=== PATIENT | female | born 1955 | race Caucasian/White ===

== ENCOUNTER 2017-07-02 22:33 | Emergency (ER) | payer OTHER ==
[~2017-07-02] VITALS: Ht 172.7 cm; Wt 68.9 kg
[2017-07-02] MEDS ORDERED: PLAVIX75 MG PO (22:53)
[2017-07-02] MEDS ORDERED: GABAPENTIN300 MG PO (22:53)
[2017-07-03] MEDS ORDERED: ORPHENADRINE CITRATE 30 MG/ML VIAL IM ONE
[2017-07-03] MEDS ORDERED: HYDROCODONE/APAP 10MG-325MG TAB PO ONE
--- NOTE | 2017-07-03 00:38 | Diagnostic Imaging Report ---
EXAM: lumbar spine, 3 views, AP, lateral and coned lateral view DATE: 07/02/2017 11:50 PM Time stamp on exam: 2348 hours INDICATION: Lower back pain after fall COMPARISON: None FINDINGS: There are 5 lumbar-type vertebral bodies. Posterior surgical fusion and laminectomies L4-S1. Likely chronic compression fractures of L4 and L5. Age indeterminate mild compression of the superior endplate of L3. Age indeterminate central compression fracture of L1 with greater than 75% loss of vertebral body height centrally. Additional age-indeterminate compression fractures with approximately 25% loss of central vertebral body height of T10 and T11. Diffuse bone demineralization. Alignment is within normal limits. Partially visualized neuro stimulator wires. IMPRESSION: Age-indeterminate compression fractures of T10, T11, L1 and L4 with the greatest loss of height at L1. Surgical changes of the lower lumbar spine L4-S1 with chronic appearing compression fractures. Signed by: Dr. Blossom Monique M.D. on 07/03/2017 12:34 AM
[2017-07-03 02:41] VITALS: BP 145/68
== END 2017-07-03 02:45 | disposition home or self-care (01) ==
LOC: ER 22:33
DX: M54.5 Low back pain (principal); S39.012A Strain of muscle, fascia and tendon of lower back, initial encounter; G89.29 Other chronic pain; W01.0XXA Fall on same level from slipping, tripping and stumbling without subsequent striking against object, initial encounter; Y93.01 Activity, walking, marching and hiking; Y92.008 Other place in unspecified non-institutional (private) residence as the place of occurrence of the external cause; Z86.73 Personal history of transient ischemic attack (TIA), and cerebral infarction without residual deficits; F17.210 Nicotine dependence, cigarettes, uncomplicated
CPT/HCPCS: 72100; 99283; J2360

== ENCOUNTER 2018-01-28 14:24 | Emergency (ER) | payer OTHER ==
[~2018-01-28] VITALS: Ht 172.7 cm; Wt 68.9 kg
[~2018-01-28 14:24] MED LIST: GABAPENTIN300 MG PO; PLAVIX75 MG PO
[2018-01-28] MEDS ORDERED: MORPHINE SULFATE 2 MG/ML SYR IM STA (15:53)
[2018-01-28] MEDS ORDERED: PREDNISONE 20 MG TAB PO ONE (16:00)
[2018-01-28] MEDS ORDERED: KETOROLAC TROMETHAMINE 60 MG/2 ML VIAL IM ONE (16:00)
[2018-01-28] MEDS ORDERED: ALBUTEROL/IPRATROPIUM 3 ML NEB NEB ONE (16:00)
[2018-01-28] MEDS ORDERED: MORPHINE SULFATE INJ 4 MG/ML INJ IM NR (16:15)
--- NOTE | 2018-01-28 17:12 | Diagnostic Imaging Report ---
PROCEDURE: A single AP view of the chest. COMPARISON: None. INDICATIONS: COUGH, SHORTNESS OF BREATH FINDINGS: Exam limited by patient rotation. Lines/tubes: None. Lungs: The lungs are well inflated and clear. There is no evidence of pneumonia or pulmonary edema. Pleura: There is no pleural effusion or pneumothorax. Heart and mediastinum: Cardiac silhouette is unremarkable. Pulmonary vasculature is grossly normal. Bones: No acute bony abnormality. Generalized osteopenia. IMPRESSION: 1. No acute cardiopulmonary abnormalities. Trevor Kaminski M.D. Dictated by: Trevor Kaminski M.D. on 01/28/2018 at 17:17 Electronically approved by: Trevor Kaminski M.D. on 01/28/2018 at 17:17
[2018-01-28 17:46] VITALS: BP 129/78
== END 2018-01-28 17:50 | disposition home or self-care (01) ==
LOC: ER 14:24
DX: M54.5 Low back pain (principal); R32 Unspecified urinary incontinence; S39.012A Strain of muscle, fascia and tendon of lower back, initial encounter; S32.19XA Other fracture of sacrum, initial encounter for closed fracture; I69.834 Monoplegia of upper limb following other cerebrovascular disease affecting left non-dominant side; R05 Cough; J20.9 Acute bronchitis, unspecified; J44.9 Chronic obstructive pulmonary disease, unspecified; F32.9 Major depressive disorder, single episode, unspecified; F17.210 Nicotine dependence, cigarettes, uncomplicated
CPT/HCPCS: 71045; 94640; 99283; J1885; J2270

== ENCOUNTER 2018-06-09 13:25 | Inpatient (IN) | payer OTHER ==
[~2018-06-09] VITALS: Ht 165.1 cm; Wt 59.9 kg
[2018-06-09 13:49] LABS: BASOPHILS % 0.1 % (0.0-1.0); EOSINOPHILS # (AUTO) 0.3 (0.0-0.4); EOSINOPHILS % 1.9 % (0.0-6.0); HEMATOCRIT 39.1 % (34.2-44.1); HEMOGLOBIN 13.2 g/dL (12.0-16.0); LYMPHOCYTES # (AUTO) 2.1 (1.0-3.2); LYMPHOCYTES % 15.2 % (18.0-39.1); MEAN CORPUSCULAR HEMOGLOBIN 32.6 pg (28-32); MEAN CORPUSCULAR HGB CONC 33.8 g/dL (31-35); MEAN CORPUSCULAR VOLUME 96.5 fL (81-99); MONOCYTES % 7.5 % (4.4-11.3); NEUTROPHILS # (AUTO) 10.3 (2.1-6.9); PLATELET COUNT 331 x10e3/uL (140-360); RED BLOOD COUNT 4.05 x10e6/uL (3.6-5.1); RED CELL DISTRIBUTION WIDTH 14.6 % (11.7-14.4)
[2018-06-09 14:05] LABS: ALANINE AMINOTRANSFERASE 7 IU/L (0-55); ALBUMIN 3.8 g/dL (3.5-5.0); ALBUMIN/GLOBULIN RATIO 0.9 (0.8-2.0); ALKALINE PHOSPHATASE 87 IU/L (40-150); ANION GAP 14.9 mmol/L (8-16); BLOOD UREA NITROGEN 18 mg/dL (7-26); BUN/CREATININE RATIO 21 (6-25); CALCIUM 10.3 mg/dL (8.4-10.2); CARBON DIOXIDE 32 mmol/L (22-29); CHLORIDE 89 mmol/L (98-107); CREATININE, SERUM 0.86 mg/dL (0.57-1.11); EST GLOMERULAR FILTRATION RATE > 60 ML/MIN (60-); GLUCOSE 118 mg/dL (74-118); POTASSIUM 3.9 mmol/L (3.5-5.1); SODIUM 132 mmol/L (136-145)
[2018-06-09 15:02] LABS: CLARITY,URINE SL CLOUDY (CLEAR); COLOR,URINE STRAW (YELLOW)
[2018-06-09 15:03] LABS: BILIRUBIN,URINE NEGATIVE (NEGATIVE); KETONES,URINE NEGATIVE (NEGATIVE); LEUKOCYTE ESTERASE ,URINE NEGATIVE (NEGATIVE); NITRITE,URINE NEGATIVE (NEGATIVE); PREGNANCY TEST, URINE NEGATIVE (NEGATIVE); PROTEIN,URINE DIPSTICK NEGATIVE (NEGATIVE); URINE UROBILINOGEN 0.2 mg/dL (0.2 - 1)
[2018-06-09 15:03] LABS: INR 0.74; PROTHROMBIN TIME 11.1 seconds (11.9-14.5)
[2018-06-09 15:04] LABS: PARTIAL THROMBOPLASTIN TIME 30.3 seconds (23.8-35.5)
[2018-06-09 15:08] LABS: AMYLASE 45 U/L (25-125); LIPASE 8 U/L (8-78)
[2018-06-09 15:14] LABS: AMORPHOUS SEDIMENT,URINE MODERATE (FEW); BACTERIA,URINE FEW /HPF; EPITHELIAL CELLS,URINE FEW /LPF; RBC,URINE 0-5 /HPF (0-5); WBC,URINE (MAN) 0-5 /HPF (0-5)
[2018-06-09] MEDS ORDERED: SODIUM CHLORIDE 0.9% 1000ML 1,000 ML IV STA (15:25)
[2018-06-09] MEDS ORDERED: MORPHINE SULFATE 2 MG/ML SYR IV STA ×2 (15:25→19:33)
[2018-06-09] MEDS ORDERED: ONDANSETRON HCL INJ 2 MG/ML VIAL IV STA ×2 (15:32→21:40)
[2018-06-09] MEDS ORDERED: ONDANSETRON HCL INJ 2 MG/ML VIAL ONE (15:35)
--- NOTE | 2018-06-09 18:51 | Diagnostic Imaging Report ---
EXAM: CT Abdomen and Pelvis WITHOUT contrast INDICATION: ^rule out obstruction. oral contract only. Allergy to IV con ^[id number] ^1725 COMPARISON: None. TECHNIQUE: Abdomen and pelvis were scanned utilizing a multidetector helical scanner from the lung base to the pubic symphysis without administration of IV contrast. Absence of intravenous contrast decreases sensitivity for detection of focal lesions and vascular pathology. Coronal and sagittal reformations were obtained. Routine protocol was performed. IV CONTRAST: None ORAL CONTRAST: Patient refused oral contrast. COMPLICATIONS: None RADIATION DOSE: Total DLP: 238.61 mGy*cm Estimated effective dose: (DLP x 0.015 x size factor) mSv CTDIvol has been reviewed. It is below the limits set by the Radiation Protocol Committee (RPC). FINDINGS: LINES and TUBES: None. LOWER THORAX: Left basilar patchy opacities. Right base calcified granuloma. There are is also linear atelectasis/scarring of the right base. HEPATOBILIARY: Unenhanced liver is unremarkable. No biliary ductal dilation. GALLBLADDER: Not distended. No radio-opaque stones or sludge. No wall thickening. SPLEEN: No splenomegaly. PANCREAS: No focal masses or ductal dilatation. ADRENALS: No adrenal nodules KIDNEYS/URETERS: No hydronephrosis. Limited for evaluation of renal parenchyma without intravenous contrast. No stones. GI TRACT: Multiple distended air and fluid-filled small bowel loops throughout the abdomen along with less distended distal ileal loops. PELVIC ORGANS/BLADDER: Unremarkable. LYMPH NODES: No lymphadenopathy. Few prominent retroperitoneal lymph nodes are seen. VESSELS: Limited evaluation without intravenous contrast and with the presence of streak artifacts. PERITONEUM / RETROPERITONEUM: No free air or fluid. BONES: Generalized demineralization limits evaluation. There is posterior fusion of L4-S1 with streak artifacts, limiting evaluation. Multiple compression deformities of the lumbar and visualized thoracic spine. Evidence of L3 vertebroplasty. SOFT TISSUES: Unremarkable. IMPRESSION: Very limited study without intravenous contrast and due to streak artifacts from spinal fusion hardware. 1. Left basilar patchy opacities, concerning for pneumonia. 2. Dilated air and fluid filled small bowel loops throughout the abdomen along with less dilated distal ileal loops concerning for at least partial small bowel obstruction. 3. Severe osseous demineralization along with multilevel compression deformities of the thoracolumbar spine vertebral bodies. Signed by: Dr. Terrance Girard MD on 06/09/2018 6:48 PM
[2018-06-09] MEDS ORDERED: MELOXICAM15 MG PO (21:45)
[2018-06-09] MEDS ORDERED: ALENDRONATE SOD70 MG PO (21:45)
[2018-06-09] MEDS ORDERED: BUSPIRONE HCL7.5 MG PO (21:45)
[2018-06-09] MEDS ORDERED: TIZANIDINE HCL4 MG PO (21:45)
[2018-06-09] MEDS ORDERED: PROAIR HFA INH8.5 GM INH (21:45)
[2018-06-09] MEDS ORDERED: ZOLPIDEM TARTRA10 MG PO (21:45)
[2018-06-09] MEDS ORDERED: OXCARBAZEPINE600 MG PO (21:45)
[2018-06-09] MEDS ORDERED: SODIUM CHLORIDE 0.9% 250ML 250 ML ONE (22:38)
[2018-06-09] MEDS: PIPER-TAZ 3.375 GM 50 ML IV SCH (22:45)
[2018-06-09] MEDS: MORPHINE SULFATE 2 MG/ML SYR IV PRN (23:38)
[2018-06-09] MEDS: SODIUM CHLORIDE 0.9% 1000ML 1,000 ML IV SCH (23:56)
[2018-06-10] VITALS (7 sets, daily range): BP systolic 88–112; BP diastolic 53–74
[2018-06-10] MEDS ORDERED: ONDANSETRON HCL INJ 2 MG/ML VIAL IV PRN
[2018-06-10] MEDS: MORPHINE SULFATE 2 MG/ML SYR IV PRN ×6 (03:32→22:00)
[2018-06-10 05:19] LABS: BASOPHILS % 0.4 % (0.0-1.0); EOSINOPHILS # (AUTO) 0.3 (0.0-0.4); EOSINOPHILS % 3.8 % (0.0-6.0); HEMATOCRIT 31.8 % (34.2-44.1); HEMOGLOBIN 10.4 g/dL (12.0-16.0); LYMPHOCYTES % 12.5 % (18.0-39.1); MEAN CORPUSCULAR HEMOGLOBIN 32.2 pg (28-32); MEAN CORPUSCULAR HGB CONC 32.7 g/dL (31-35); MEAN CORPUSCULAR VOLUME 98.5 fL (81-99); MONOCYTES % 12.1 % (4.4-11.3); NEUTROPHILS # (AUTO) 5.7 (2.1-6.9); NEUTROPHILS % 70.9 % (38.7-80.0); PLATELET COUNT 244 x10e3/uL (140-360); RED BLOOD COUNT 3.23 x10e6/uL (3.6-5.1); RED CELL DISTRIBUTION WIDTH 14.5 % (11.7-14.4)
[2018-06-10 05:42] LABS: ALBUMIN 2.9 g/dL (3.5-5.0); ALBUMIN/GLOBULIN RATIO 0.8 (0.8-2.0); ALKALINE PHOSPHATASE 65 IU/L (40-150); BLOOD UREA NITROGEN 13 mg/dL (7-26); BUN/CREATININE RATIO 19 (6-25); CALCIUM 8.8 mg/dL (8.4-10.2); CARBON DIOXIDE 31 mmol/L (22-29); CHLORIDE 98 mmol/L (98-107); CHOL/HDL RATIO 1.8 (3.0-3.6); CHOLESTEROL 134 MD/DL (0-199); CREATININE, SERUM 0.69 mg/dL (0.57-1.11); EST GLOMERULAR FILTRATION RATE > 60 ML/MIN (60-); GLUCOSE 80 mg/dL (74-118); HDL CHOLESTEROL 75 MG/DL (40-60); LDL CHOLESTEROL 39 MG/DL (60-130); MAGNESIUM 1.9 MG/DL (1.3-2.1); PHOSPHORUS 2.7 MG/DL (2.3-4.7); SODIUM 135 mmol/L (136-145); TRIGLYCERIDES 99 MG/DL (0-149)
[2018-06-10 05:43] LABS: ALANINE AMINOTRANSFERASE < 6 IU/L (0-55)
[2018-06-10] MEDS ORDERED: MORPHINE SULFATE 2 MG/ML SYR IV STA (05:51)
[2018-06-10 06:05] LABS: THYROID STIMULATING HORMONE 1.351 uIU/mL (0.350-4.940)
[2018-06-10] MEDS: PIPER-TAZ 3.375 GM 50 ML IV SCH ×3 (06:09→22:35)
--- NOTE | 2018-06-10 06:58 | Diagnostic Imaging Report ---
EXAM: CHEST SINGLE (PORTABLE), AP 1 view INDICATION: Pneumonia, COPD COMPARISON: AP view of the chest January 28, 2018 FINDINGS: LINES/TUBES: None LUNGS: Bibasilar atelectasis. PLEURA: No effusions or pneumothorax. HEART AND MEDIASTINUM: Normal size and contour. BONES AND SOFT TISSUES: No acute findings. IMPRESSION: Bibasilar atelectasis. Signed by: Dr. Blossom Monique M.D. on 06/10/2018 6:54 AM
--- NOTE | 2018-06-10 06:59 | Diagnostic Imaging Report ---
EXAM: ABDOMEN-1VIEW (KUB), supine INDICATION: Small bowel obstruction COMPARISON: CT of the abdomen and pelvis June 09, 2018 FINDINGS: LINES/TUBES: None BOWEL PATTERN: Persistent dilated loops of small bowel. SOFT TISSUES: No change. LUNG BASES: Not included BONES: No acute findings. IMPRESSION: Persistent small bowel obstruction. Signed by: Dr. Blossom Monique M.D. on 06/10/2018 6:55 AM
[2018-06-10] MEDS: ALBUTEROL/IPRATROPIUM 3 ML NEB NEB SCH ×5 (07:00→22:00)
[2018-06-10] MEDS ORDERED: NON-FORMULARY MEDICATION (Zolpidem Tartrate 10 MG) PO PRN (08:15)
[2018-06-10] MEDS ORDERED: TIZANIDINE HCL 4 MG TAB PO PRN (08:15)
[2018-06-10] MEDS ORDERED: HYDROCODONE/APAP 5MG-325MG TAB PO PRN (08:30)
[2018-06-10] MEDS: BUSPIRONE HCL 5 MG TAB PO SCH ×2 (09:00→17:00)
[2018-06-10] MEDS ORDERED: NON-FORMULARY MEDICATION (Meloxicam 15 MG) PO SCH (09:00)
[2018-06-10] MEDS: GABAPENTIN 300 MG CAP PO SCH ×3 (09:00→20:39)
[2018-06-10] MEDS: OXCARBAZEPINE 300 MG TAB PO SCH ×2 (09:00→17:00)
[2018-06-10] MEDS ORDERED: CLOPIDOGREL BISULFATE 75 MG TAB PO SCH (09:00)
[2018-06-10] MEDS: GUAIFENESIN 600MG/DEXTROMETHORPHAN 30MG TABSR PO SCH ×2 (09:00→17:00)
[2018-06-10] MEDS ORDERED: NON-FORMULARY MEDICATION (Buspirone Hcl 7.5 MG) PO SCH (09:00)
[2018-06-10] MEDS ORDERED: MELOXICAM 7.5 MG TAB PO SCH (09:00)
[2018-06-10] MEDS: FAMOTIDINE 20 MG/2 ML VIAL IV SCH ×2 (09:30→16:59)
[2018-06-10] MEDS: SODIUM CHLORIDE 0.9% 1000ML 1,000 ML IV SCH (20:39)
[2018-06-10] MEDS ORDERED: NICOTINE 7 MG PATCH TOP SCH (21:00)
[2018-06-10] MEDS ORDERED: ZOLPIDEM TARTRATE 10 MG TAB PO PRN (21:00)
[2018-06-11] VITALS: BP 100/52
[2018-06-11] MEDS: MORPHINE SULFATE 2 MG/ML SYR IV PRN (02:00)
[2018-06-11 04:51] VITALS: BP 99/52
[2018-06-11] MEDS: ALBUTEROL/IPRATROPIUM 3 ML NEB NEB SCH (06:00)
[2018-06-11] MEDS: PIPER-TAZ 3.375 GM 50 ML IV SCH (06:03)
[2018-06-11] MEDS ORDERED: MORPHINE SULFATE INJ 4 MG/ML INJ IV PRN (06:30)
[2018-06-11] MEDS ORDERED: MORPHINE SULFATE 2 MG/ML SYR IV PRN ×2 (06:30→09:45)
[2018-06-11] MEDS ORDERED: BACLOFEN 10 MG TAB PO PRN (06:30)
[2018-06-11 06:51] LABS: BASOPHILS % 0.3 % (0.0-1.0); EOSINOPHILS # (AUTO) 0.3 (0.0-0.4); EOSINOPHILS % 4.2 % (0.0-6.0); HEMATOCRIT 31.5 % (34.2-44.1); HEMOGLOBIN 10.1 g/dL (12.0-16.0); LYMPHOCYTES # (AUTO) 0.9 (1.0-3.2); LYMPHOCYTES % 15.3 % (18.0-39.1); MEAN CORPUSCULAR HEMOGLOBIN 32.4 pg (28-32); MEAN CORPUSCULAR HGB CONC 32.1 g/dL (31-35); MONOCYTES # (AUTO) 0.8 (0.2-0.8); MONOCYTES % 13.5 % (4.4-11.3); NEUTROPHILS # (AUTO) 4.1 (2.1-6.9); NEUTROPHILS % 66.4 % (38.7-80.0); PLATELET COUNT 248 x10e3/uL (140-360); RED BLOOD COUNT 3.12 x10e6/uL (3.6-5.1); RED CELL DISTRIBUTION WIDTH 14.4 % (11.7-14.4)
--- NOTE | 2018-06-11 06:53 | Diagnostic Imaging Report ---
EXAM: ABDOMEN-1VIEW (KUB), supine INDICATION: Small bowel obstruction COMPARISON: Abdominal x-ray June 10, 2018 FINDINGS: LINES/TUBES: None BOWEL PATTERN: Persistent dilated loops of centralized small bowel. Air is seen in the colon and rectum. SOFT TISSUES: No acute findings LUNG BASES: Not included BONES: No acute findings. IMPRESSION: Persistent small bowel obstruction. Signed by: Dr. Blossom Monique M.D. on 06/11/2018 6:49 AM
[2018-06-11 06:59] LABS: BLOOD UREA NITROGEN 12 mg/dL (7-26); BUN/CREATININE RATIO 20 (6-25); CALCIUM 8.8 mg/dL (8.4-10.2); CARBON DIOXIDE 26 mmol/L (22-29); CHLORIDE 103 mmol/L (98-107); CREATININE, SERUM 0.61 mg/dL (0.57-1.11); EST GLOMERULAR FILTRATION RATE > 60 ML/MIN (60-); GLUCOSE 66 mg/dL (74-118); MAGNESIUM 2.2 MG/DL (1.3-2.1); SODIUM 139 mmol/L (136-145)
== END 2018-06-11 07:41 | disposition left against medical advice (07) | DRG 388 ==
LOC: ER 13:25 → OBSVTOIN 19:46 → ERHOLD 19:46 → INTOOBSV 19:46 → MED/SURG3 21:55
PROVIDERS: ADMIT Internal Medicine; ATTEND Internal Medicine
DX: K56.609 Unspecified intestinal obstruction, unspecified as to partial versus complete obstruction (principal); E43 Unspecified severe protein-calorie malnutrition; J44.1 Chronic obstructive pulmonary disease with (acute) exacerbation; R64 Cachexia; Z68.1 Body mass index [BMI] 19.9 or less, adult; E87.1 Hypo-osmolality and hyponatremia; R94.31 Abnormal electrocardiogram [ECG] [EKG]; I69.321 Dysphasia following cerebral infarction; I69.398 Other sequelae of cerebral infarction; Z74.01 Bed confinement status; R09.02 Hypoxemia; E86.0 Dehydration; R32 Unspecified urinary incontinence; Z68.22 Body mass index [BMI] 22.0-22.9, adult; F17.210 Nicotine dependence, cigarettes, uncomplicated; F41.9 Anxiety disorder, unspecified; F32.9 Major depressive disorder, single episode, unspecified; G47.00 Insomnia, unspecified; F41.0 Panic disorder [episodic paroxysmal anxiety]
CPT/HCPCS: 36415; 71045; 74018; 74176; 80048; 80053; 80061; 81001; 81025; 82140; 82150; 82378; 83036; 83605; 83690; 83735; 84100; 84443; 85025; 85610; 85730; 93005; 94640; 99284; J2270; J2405; J2543; J7030; J7050

== ENCOUNTER 2018-11-10 18:35 | Emergency (ER) | payer OTHER ==
[~2018-11-10] VITALS: Ht 172.7 cm; Wt 56.7 kg
[~2018-11-10 18:35] MED LIST changes: +ALENDRONATE SOD70 MG PO; +BUSPIRONE HCL7.5 MG PO; +MELOXICAM15 MG PO; +OXCARBAZEPINE600 MG PO; +PROAIR HFA INH8.5 GM INH; +TIZANIDINE HCL4 MG PO; +ZOLPIDEM TARTRA10 MG PO
--- NOTE | 2018-11-10 19:30 | NUR ---
PT AMBULATORY TO RESTROOM AT THIS TIME WITH WALKER, NAD NOTED, 100% ON RA, BREATHING EVEN/UNLABORED.
--- NOTE | 2018-11-10 19:57 | Diagnostic Imaging Report ---
EXAM: CHEST SINGLE (PORTABLE), AP 1 view INDICATION: Chest pain. Trouble breathing. COMPARISON: AP view of the chest 06/09/2018 FINDINGS: LINES/TUBES: None LUNGS: Bibasilar atelectasis. Lungs are mildly hyperinflated. PLEURA: No effusions or pneumothorax. HEART AND MEDIASTINUM: Normal size and contour. BONES AND SOFT TISSUES: No acute findings. IMPRESSION: No change. Bibasilar atelectasis. Signed by: Dr. Penny Shah M.D. on 11/10/2018 7:54 PM
[2018-11-10] MEDS ORDERED: METHYLPREDNISOLONE SOD SUCC 125 MG/2ML VIAL IV ONE (20:00)
[2018-11-10] MEDS ORDERED: ALBUTEROL/IPRATROPIUM 3 ML NEB NEB ONE ×2 (20:00→20:30)
[2018-11-10] MEDS ORDERED: ASPIRIN 81 MG CHEW TAB PO ONE (20:45)
--- NOTE | 2018-11-10 21:10 | NUR ---
PT INFORMED OF HEMOLYZED LABS, INFORMED OF NEED TO REDRAW USING BUTTERFLY NEEDLE, PT STATES "YOU AIN'Y POKING ME AGAIN", ATTEMPTED TO EDUCATE PATIENT ON NEED FOR REDRAW OF LABS, REFUSING AT THIS TIME, DR. ALANIS MADE AWARE AT THIS TIME.
--- NOTE | 2018-11-10 21:35 | Diagnostic Imaging Report ---
EXAM: CT Chest WITHOUT contrast INDICATION: ^dyspnea on exertion ^[id number] ^2057 COMPARISON: Same day chest x-ray. TECHNIQUE: Chest was scanned utilizing a multidetector helical scanner from the lung apex through the level of the adrenal glands without administration of IV contrast. Absence of intravenous contrast decreases sensitivity for detection of lymphadenopathy and vascular pathology. Coronal and sagittal reformations were obtained. Routine protocol was performed. IV CONTRAST: None COMPLICATIONS: None RADIATION DOSE: Total DLP: 387.6 mGy*cm Estimated effective dose: (DLP x 0.014 x size factor) mSv CTDIvol has been reviewed. It is below the limits set by the Radiation Protocol Committee (RPC). FINDINGS: LINES/ TUBES: None. LUNGS AND AIRWAYS: Minimal upper lobe predominant centrilobular emphysematous changes. No focal consolidation. Small linear left basilar atelectasis/scarring. Posterior right base calcified granuloma. Airways are normal. PLEURA: The pleural spaces are clear. HEART AND MEDIASTINUM: The thyroid gland is normal. Limited for evaluation of hilar regions without intravenous contrast. Prominent mediastinal lymph nodes, the largest measuring 1.2 cm in the precarinal region (series 2, image 51). No axillary lymphadenopathy. The heart is normal in size.. There is no pericardial effusion. Mild atherosclerotic calcification of the aortic arch and coronary arteries. UPPER ABDOMEN: Unremarkable. BONES: Generalized demineralization. Age indeterminate compression fractures of the L1, T11, T10 T8 vertebral bodies. Degenerative changes of thoracic spine. SOFT TISSUES: Unremarkable. IMPRESSION: Minimal upper lobe predominant centrilobular symphysis changes. No focal consolidation. Prominent nonspecific mediastinal lymph nodes. Age indeterminate compression deformities of vertebral bodies as described above. Signed by: Dr. Terrance Girard MD on 11/10/2018 9:31 PM
== END 2018-11-10 21:35 | disposition left against medical advice (07) ==
LOC: ER 18:35
DX: J44.1 Chronic obstructive pulmonary disease with (acute) exacerbation (principal); Z91.041 Radiographic dye allergy status; F17.210 Nicotine dependence, cigarettes, uncomplicated
CPT/HCPCS: 36415; 71045; 71250; 93005; 94640; 99284; J2930

== ENCOUNTER 2019-12-18 15:42 | Emergency (ER) | payer OTHER ==
[~2019-12-18] VITALS: Ht 172.7 cm; Wt 56.7 kg
--- OUTSIDE RECORDS SUMMARY | 2019-12-18 15:45 | XMS REPORT | Continuity of Care Document ---
Author Author [facility] Organization [employer] Address Unknown Phone Unavailable Care Team Providers Care Nurse Clinician Name Role Phone [employer] Information Classting Unavailable Un available Problems Problem Status Onset Date Classification Date Reported Comments Source Lumbago with sciatica, unspecified side Active Problem 12/26/2016 [facility] Chronic pain disorder Active Problem 12/26/2016 [facility] Laceration of elbow, left, initial encounter Active Diagnosis 12/25/2016 [facility] Elbow laceration, right, initial encounter Active Diagnosis 12/25/2016 [facility] History of stroke Active Diagnosis 12/25/2016 [facility] Medications Medication Details Route Status Patient Instructions Ordering Provider Order Date Source Suboxone 2 ea sublingually Active 8 mg-2 mg sublingually once a day [facility] Plavix 1 tab(s) orally Active 75 mg orally once a day [facility] Ambien 1 tab(s) orally Active 5 mg orally once a day (at bedtime) [facility] Allergies, Adverse Reactions, Alerts Substance Category Reaction Severity Reaction type Status Date Reported Comments Source morphine Adverse Reaction anaphylaxis Adverse Reaction Active 12/11/2016 [facility] Immunizations No Data Provided for This Section Results No Data Provided for This Section Pathology Reports No Data Provided for This Section Diagnostic Reports No Data Provided for This Section Consultation Notes No Data Provided for This Section Discharge Summaries No Data Provided for This Section History and Physicals No Data Provided for This Section Vital Signs Vital Sign Value Date Comments Source Temperature Oral (F) 98.0 F 12/11/2016 [facility] Weight 140 12/11/2016 [facility] Height 66 0 12/11/2016 [facility] Respitory Rate 16 12/11/2016 [facility] Diastolic (mm Hg) 78 12/11/2016 [facility] Systolic (mm Hg) 126 12/11/2016 [facility] Encounters No Data Provided for This Section Procedures No Data Provided for This Section Assessment and Plan No Data Provided for This Section Plan of Care No Data Provided for This Section Social History No Data Provided for This Section Family History No Data Provided for This Section Advance Directives No Data Provided for This Section Functional Status No Data Provided for This Section
--- OUTSIDE RECORDS SUMMARY | 2019-12-18 15:45 | XMS REPORT ---
Author Author [facility] [employer] Address Unknown Phone Unavailable Care Team Providers Care Senior Outside Sales Representative Name Role Phone RODOLFO [facility] Unavailable Allergies, Adverse Reactions, Alerts Substance Reaction Event Type morphine anaphylaxis Drug Allergy Problems Problem Type Condition Code Onset Dates Condition Statu s Problem Lumbago with sciatica, unspecified side M54.40 Active Assessment Chronic pain disorder G89.4 Active Problem Chronic pain disorder G89.4 Active Assessment Laceration of elbow, left, initial encounter S51.012A Active Assessment Elbow laceration, right, initial encounter S51.011A Active Assessment Lumbago with sciatica, unspecified side M54.40 Active Assessment History of stroke Z86.73 Active Medications Medication Code System Code Instructions Start Date End Date Status Dosage Suboxone [facility] 64572102049 8 mg-2 mg sublingually once a day Active 2 ea Plavix [facility] [id number] 75 mg orally once a day Acti ve 1 tab(s) Ambien [facility] [id number] 5 mg orally once a day (at bedtime) Active 1 tab(s) Vital Signs Date/Time: December 11, 2016 Temperature 98.0 F Weight 140 lbs Height 66 in Respiratory Rate 16 /min Pulse 80 /min Blood Pressure Diastolic 78 mm Hg Blood Pressure Systolic 126 mm Hg BMI 22.59 Index Oximetry 98 % Results No Known Results Summary Purpose [employer] Submission
--- OUTSIDE RECORDS SUMMARY | 2019-12-18 15:45 | XMS REPORT ---
Author Author [facility] [employer] Address Unknown Phone Unavailable Care Team Providers Care Senior Designer/Art Director Name Role Phone RODOLFO [facility] CP Unavailable Allergies No Known Allergies Problems Problem Type Condition Code Onset Dates Condition Statu s Problem Lumbago with sciatica, unspecified side M54.40 Active Problem Chronic pain disorder G89.4 Active Medications No Known Medications Results No Known Results Summary Purpose [employer] Submission
--- OUTSIDE RECORDS SUMMARY | 2019-12-18 15:45 | XMS REPORT ---
Author Author [facility] [employer] Address Unknown Phone Unavailable Care Team Providers Care Mask Layout Designer Name Role Phone RODOLFO CUBA CP Unavailable Allergies No Known Allergies Problems Problem Type Condition Code Onset Dates Condition Statu s Problem Lumbago with sciatica, unspecified side M54.40 Active Problem Chronic pain disorder G89.4 Active Medications Medication Code System Code Instructions Start Date End Date Status Dosage Suboxone [facility] [id number] 8 mg-2 mg sublingually once a day Active 2 ea Results No Known Results Summary Purpose [employer] Submission
--- OUTSIDE RECORDS SUMMARY | 2019-12-18 15:46 | XMS REPORT | Continuity of Care Document ---
Author Author [facility] t Organization [facility] Address [address] [place] [id number] Phone Unavailable Care Team Providers Care Marketing Communications Manager Name Role Phone Shama CARMICHAEL DO PCP Ramirez MEJIA Attphys Unavailable ALIE DUARTE Attphys Unavailable MANOnofre RAMIREZ Attphys Unavailable Linda TEE Attphys Unavailable KILLAMALIE Admphys Unavailable Payers Payer Name Policy Type Policy Number Effective Date Expiration Date [facility] [employer] [facility] [id number] 2017 00:00 :[address] [facility] Problems Condition Name Condition Details Condition Category Status Onset Date Resolution Date Last Treatment Date Treating Clinician Comments Source Small bowel obstruction SBO (small bowel obstruction) Problem Active [facility] Lumbago with sciatica, unspecified side Lumbago with sciatica, unspecified side Active Problem 12/26/2016 [facility] Problem Active 2016-12-26 02:46:31 Pablito Valdivia Chronic pain disorder Wool Shearer akhil pain disorder Active Problem 12/26/2016 [facility] Problem Active 2016-12-26 02:46:31 Marj Valdivia Laceration of elbow, left, initial encounter Laceration of elbow, left, initial encounter Active Diagnosis 12/25/2016 [facility] Diagnosis Active 2016-12-25 02:46:10 Marj Valdivia Elbow laceration, right, initial encounter Elbow laceration, right, initial encounter Active Diagnosis 12/25/2016 [facility] Diagnosis Active 2016-12-25 02:46:10 Me collin Valdivia History of stroke Hist ory of stroke Active Diagnosis 12/25/2016 [facility] Diagnosis Active 2016-12-25 02:46:10 Marj Valdivia Allergies, Adverse Reactions, Alerts Allergy Name Allergy Type Status Severity Reaction(s) Onset Date Inacti ve Date Treating Clinician Comments Source Iodine and Iodide Containing Produc FA Active SV 2019-11-11 6 00:00:00 [facility] morphine DA Active [place] 2019-11-26 00:00:00 [facility] Iodine and Iodide Containing Produc FA Active 2019-04-14 1 00:00:00 [facility] morphine DA Active [place] 2019-05-12 00:00:00 [facility] Iodinated Contrast- Oral and IV Dye Allergy to Substance Active Severe ANAPHYLAXIS 2018-11-10 00:00:[address] [facility] Iodine and Iodide Containing Produc FA Active 2017-11-10 5 00:00:00 [facility] morphine DA Active [place] 2017-11-24 00:00:00 [facility] morphine morphine Active anaphylaxis 2016-12-11 00:00:00 Marj Valdivia Medications Ordered Medication Name Filled Medication Name Start Date Stop Da te Current Medication? Ordering Clinician Indication Dosage Frequency Signature (SIG) Comments Components Source Suboxone 2016-12-25 02:50:31 Yes RODOLFO COREA 2 ea [facility] Plavix 2016-12-25 02:46:10 Yes RODOLFO COREA 1 ta b(s) [facility] Ambien 2016-12-25 02:46:10 Yes RODOLFO COREA 1 ta b(s) [facility] Albuterol Sulfate (Proair Hfa Inhaler*) 8.5 Gm Inh Alb uterol Sulfate (Proair Hfa Inhaler*) 8.5 Gm Inh Yes 2 Four Times Daily [facility] Alendronate Sodium 70 Mg Tablet Alendronate Sodium 70 Mg Tablet Yes [address] [facility] Buspirone Hcl 7.5 Mg Tablet Buspirone Hcl 7.5 Mg Tablet Yes 7.5 Twice A Day [facility] Clopidogrel Bisulfate (Plavix) 75 Mg Tablet Clopidogre l Bisulfate (Plavix) 75 Mg Tablet Yes [address] [facility] Gabapentin 300 Mg Capsule Gabapentin 300 Mg Capsule Yes 300 Three Times A Day [facility] Meloxicam 15 Mg Tablet Meloxicam 15 Mg Tablet Yes [address] [facility] Oxcarbazepine 600 Mg Tablet Oxcarbazepine 600 Mg Tablet Yes 600 Twice A Day [facility] Tizanidine Hcl 4 Mg Tablet Tizanidine Hcl 4 Mg Tablet Yes 4 Every 8 Hours [facility] Zolpidem Tartrate 10 Mg Tablet Zolpidem Tartrate 10 Mg Tablet Yes 10 Bedtime as needed for Insomnia [facility] Vital Signs Vital Name Observation Time Observation Value Comments Source Temperature Oral (F) 2016-12-11 20:30:[address] [facility] Weight 2016-12-11 20:30:00 [facility] Height 2016-12-11 20:30:00 [facility] Respitory Rate 2016-12-11 20:30:00 Memori al Skip Diastolic (mm Hg) 2016-12-11 20:30:00 Mem orial Skip Systolic (mm Hg) 2016-12-11 20:30:00 Mp rial Skip Procedures Procedure Date / Time Performed Performing Clinician Sourc e Computed tomography of chest without contrast 2018-11-10 00: 00:[address] [facility] CT of abdomen and pelvis without contrast 2018-06-09 00:00:[address] [facility] Encounters Start Date/Time End Date/Time Encounter Type Admission Type [facility] Facility Care Department Encounter ID Source 2019-09-16 18:27:00 2019-09-16 18:27:00 Emergency E SE SE [id number] 2018-11-10 18:35:00 2018-11-10 21:35:00 Departed Emergency Room [address] [facility] [id number] [facility] 2018-06-09 19:46:00 2018-06-11 07:41:00 Discharged Inpatient [address] [facility] [id number] [facility] 2018-01-28 14:24:00 2018-01-28 17:50:00 Departed Emergency Room [address] [facility] [id number] [facility] 2017-07-02 22:33:00 2017-07-03 02:45:00 Departed Emergency Room ER NATTY TEE [facility] [id number] [facility] 2016-12-24 15:40:00 2016-12-24 15:40:00 Outpatient [facility] [id number] [facility] 2016-12-24 10:20:00 2016-12-24 10:20:00 Outpatient [facility] Med [id number] [facility] 2016-12-11 15:30:00 2016-12-11 15:30:00 Outpatient [facility] Med [id number] [facility] Results Test Description Test Time Test Comments Results Result Comments Source MAGNESIUM 2019-11-26 22:06:00 Test Item MAGNESIUM (test code = MAG) 1.8 mg/dL 1.8-2.4 N B-TYPE NATRIURETIC [id number] 20:39:00* Test Item Value Reference Range Interpretation Comments B-TYPE NATRIURETIC PEPTIDE (test code = BNP) 45.41 pgram/mL 0-100 N BASIC METABOLIC [id number] 20:27:00* Test Item Value Reference Range Interpretation Comments SODIUM (test code = NA) 136 mmol/L 136-145 N POTASSIUM (test code = K) 4.2 mmol/L 3.5-5.1 N CHLORIDE (test code = CL) 103.0 mmol/L 98-107 N CARBON DIOXIDE (test code = CO2) 30.0 mmol/L 21-32 N ANION GAP (test code = GAP) 7.2 10-20 L GLUCOSE (test code = GLU) 96 mg/dL 74-106 N BLOOD UREA NITROGEN (test code = BUN) 9 mg/dL 7-18 N GLOMERULAR FILTRATION RATE (test code = GFR) > 60 mL/min >=60 Estimated GFR by using Modified MDRD formula.Chronic kidney disease is defined as either kidney damageor GFR <60 mL/min/1.73 m2 for >3 months. CREATININE (test code = CREAT) 0.70 mg/dL 0.55-1.02 N Note change in reference range due to change in reagent. BUN/CREATININE RATIO (test code = BUN/CREA) 12.9 10-20 N CALCIUM (test code = CA) 9.0 mg/dL 8.5-10.1 N [id number] 20:27:00* Test Item Value Reference Range Interpretation Comments TROPONIN-I (test code = TROPI) <0.015 ng/mL 0-0.045 N [id number] 20:24:00* Test Item Value Reference Range Interpretation Comments D-DIMER (test code = DDIMER) 657.00 ng/mLFEU 0-500 HH Results called to [id number] by CHARLIE 11/26/192Critical results verified and read back by Nurse? YClinical Cut-off value for D-Dimer is 500 ng/mL FEU. Comment: The [employer] D- Dimer assay is intended for use asan aid in the diagnosis of venous thromboembolism (VTE)[deep vein thrombosis (DVT) or pulmonary embolism (PE)].The measurement of D-Dimer should not be used as an aid inthe diagnosis of VTE, in patient with: -Therapeutic dose anticoagulant therapy for >24 hours - Fibrinolytic therapy within previous 7 days -Trauma or surgery within previous 4 weeks -Disseminated malignancies -Aortic aneurysm -Sepsis, severe infections, pneumonia, severe skin infections -Liver cirrhosis - BASIC METABOLIC [id number] 20:13:00* Test Item Value Reference Range Interpretation Comments SODIUM (test code = NA) 136 mmol/L 136-145 N POTASSIUM (test code = K) 4.2 mmol/L 3.5-5.1 N CHLORIDE (test code = CL) 103.0 mmol/L 98-107 N CARBON DIOXIDE (test code = CO2) mmol/L 21-32 ANION GAP (test code = GAP) 10-20 GLUCOSE (test code = GLU) mg/dL 74-106 BLOOD UREA NITROGEN (test code = BUN) mg/dL 7-18 GLOMERULAR FILTRATION RATE (test code = GFR) mL/min >=60 CREATININE (test code = CREAT) mg/dL 0.55-1.02 BUN/CREATININE RATIO (test code = BUN/CREA) 10-20 CALCIUM (test code = CA) mg/dL 8.5-10.1 [id number] 20:13:00* Test Item Value Reference Range Interpretation Comments TROPONIN-I (test code = TROPI) ng/mL 0-0.045 CBC W/O [id number] 20:06:00* Test Item Value Reference Range Interpretation Comments WHITE BLOOD CELL (test code = WBC) 10.6 K/mm3 4.5-12.5 N RED BLOOD CELL (test code = RBC) 3.81 mill/mm3 3.7-5.2 N HEMOGLOBIN (test code = HGB) 11.5 gram/dL 11.5-15.5 N HEMATOCRIT (test code = HCT) 35.0 % 36.0-46.0 L MEAN CELL VOLUME (test code = MCV) 91.9 fL 80-98 N MEAN CELL HGB (test code = MCH) 30.2 picogram 27.0-33.0 N MEAN CELL HGB CONCETRATION (test code = MCHC) 32.9 gram/dL 33.0-36. 0 L RED CELL DISTRIBUTION WIDTH (test code = RDW) 14.6 % 11.6-16. 2 N PLATELET COUNT (test code = PLT) 235 K/mm3 150-450 N MEAN PLATELET VOLUME (test code = MPV) 9.2 fL 6.7-11.0 N CBC W/O [id number] 20:00:00* Test Item Value Reference Range Interpretation Comments WHITE BLOOD CELL (test code = WBC) K/mm3 4.5-12.5 RED BLOOD CELL (test code = RBC) mill/mm3 3.7-5.2 HEMOGLOBIN (test code = HGB) 11.5 gram/dL 11.5-15.5 N HEMATOCRIT (test code = HCT) % 36.0-46.0 MEAN CELL VOLUME (test code = MCV) fL 80-98 MEAN CELL HGB (test code = MCH) picogram 27.0-33.0 MEAN CELL HGB CONCETRATION (test code = MCHC) gram/dL 33.0-36. 0 RED CELL DISTRIBUTION WIDTH (test code = RDW) % 11.6-16. 2 PLATELET COUNT (test code = PLT) K/mm3 150-450 MEAN PLATELET VOLUME (test code = MPV) fL 6.7-11.0 Coronavirus 2019 nCoV [id number] 19:16:00* Test Item Value Reference Range Interpretation Comments Coronavirus 2019 nCoV Bedside (test code = [id number]) Negative Is patient requiring admission or transfer? YIndication for rapid COVID-19 testi ng: Mod Clinical Suspicion- XR CHEST 1 V 2019-11-26 18:21:00 FAX: Abdulkadir MedelJanyAri paul [phone] [place]: St: PRE FAX: Junior Corea MD [phone] Name: VIRA MESSINA [facility] : 1955 Age[facility]S: 64[facility]F [address] [facility]: [id number] Loc: [place] [address] Phys: Junior Corea MD Acct: [id number] Dis Date: Status: PRE ER PHONE #: [phone] Exam Date: 11/26/20191812 FAX #: [phone] Reason: Shortness of Breath EXAMS: CPT CODE: [id number] XR CHEST 1 V 06649 REASON FOR EXAM: Shortness of Breath Exam Order Date: 11/26/2019 5:44 PM Ordering M.D.: Junior Corea MD PROCEDURE: - XR CHEST 1 V COMPARISON: Chest x-ray July 02, 2019 FINDINGS: The lungs are clear. There is no pleural effusion or pneumothorax. Pulmonary vascularity is within normal limits. Cardiomediastinal silhouette is normal in size for technique. The mediastinal contours are within normal limits. There is height loss of some of the vertebral bodies in the thoracic spine. Bone mineralization is decreased. The visualized upper abdomen is withi n normal limits. IMPRESSION: No acute cardiopulm onary process. Location: [facility] at 1821 Reported and si gned by: Rafita Archuleta MD CC: Ari Carmichael; Junior Corea MD Technologist: MURRAY CHILDS) Trnscrd Date/Time/By: 11/26/2019 (1820) : By: [email or web address] Orig Print D/T: S: 11/26/2019 (1823) PAGE 1 Signed Report BASIC METABOLIC [id number] 14:04:00* Test Item Value Reference Range Interpretation Comments SODIUM (test code = NA) 138 mmol/L 136-145 N POTASSIUM (test code = K) 4.1 mmol/L 3.5-5.1 N CHLORIDE (test code = CL) 102.0 mmol/L 98-107 N CARBON DIOXIDE (test code = CO2) 28.0 mmol/L 21-32 N ANION GAP (test code = GAP) 12.1 10-20 N GLUCOSE (test code = GLU) 113 mg/dL 74-106 H BLOOD UREA NITROGEN (test code = BUN) 11 mg/dL 7-18 N GLOMERULAR FILTRATION RATE (test code = GFR) > 60 mL/min >=60 Estimated GFR by using Modified MDRD formula.Chronic kidney disease is defined as either kidney damageor GFR <60 mL/min/1.73 m2 for >3 months. CREATININE (test code = CREAT) 0.70 mg/dL 0.55-1.02 N Note change in reference range due to change in reagent. BUN/CREATININE RATIO (test code = BUN/CREA) 15.7 10-20 N CALCIUM (test code = CA) 8.9 mg/dL 8.5-10.1 N [V.LAB.SP3 07/03/19 0536]CBC W/AUTO [id number] 12:59:00* Test Item Value Reference Range Interpretation Comments WHITE BLOOD CELL (test code = WBC) 9.8 K/mm3 4.5-12.5 N RED BLOOD CELL (test code = RBC) 3.61 mill/mm3 3.7-5.2 L HEMOGLOBIN (test code = HGB) 11.2 gram/dL 11.5-15.5 L HEMATOCRIT (test code = HCT) 35.2 % 36.0-46.0 L MEAN CELL VOLUME (test code = MCV) 97.5 fL 80-98 N MEAN CELL HGB (test code = MCH) 31.0 picogram 27.0-33.0 N MEAN CELL HGB CONCETRATION (test code = MCHC) 31.8 gram/dL 33.0-36. 0 L RED CELL DISTRIBUTION WIDTH (test code = RDW) 14.3 % 11.6-16. 2 N RED CELL DISTRIBUTION WIDTH SD (test code = RDW-SD) 51.2 fL 37 .0-51.0 H PLATELET COUNT (test code = PLT) 303 K/mm3 150-450 RESULT VERIFIED BY REPEAT ANALYSIS MEAN PLATELET VOLUME (test code = MPV) 9.5 fL 6.7-11.0 N NEUTROPHIL % (test code = NT%) 85.1 % 39.0-69.0 H IMMATURE GRANULOCYTE % (test code = IG%) 0.8 % 0.0-5.0 N LYMPHOCYTE % (test code = LY%) 8.6 % 25.0-55.0 L MONOCYTE % (test code = MO%) 5.4 % 0.0-10.0 N EOSINOPHIL % (test code = EO%) 0.0 % 0.0-5.0 N BASOPHIL % (test code = BA%) 0.1 % 0.0-1.0 N NUCLEATED RBC % (test code = NRBC%) 0.0 % 0-0 N NEUTROPHIL # (test code = NT#) 8.34 K/mm3 1.8-7.7 H IMMATURE GRANULOCYTE # (test code = IG#) 0.08 x10 3/uL 0-0.03 H LYMPHOCYTE # (test code = LY#) 0.84 K/mm3 1.0-5.0 L MONOCYTE # (test code = MO#) 0.53 K/mm3 0-0.8 N EOSINOPHIL # (test code = EO#) 0.00 K/mm3 0.0-0.5 N BASOPHIL # (test code = BA#) 0.01 K/mm3 0.0-0.2 N NUCLEATED RBC # (test code = NRBC#) 0.00 K/mm3 0.0-0.1 N [V.LAB.SP3 07/03/19 0536]B-TYPE NATRIURETIC [id number] 14:39:00* Test Item Value Reference Range Interpretation Comments B-TYPE NATRIURETIC PEPTIDE (test code = BNP) 144.74 pgram/mL 0-100 H BASIC METABOLIC [id number] 14:14:00* Test Item Value Reference Range Interpretation Comments SODIUM (test code = NA) 141 mmol/L 136-145 N POTASSIUM (test code = K) 4.1 mmol/L 3.5-5.1 N CHLORIDE (test code = CL) 105.0 mmol/L 98-107 N CARBON DIOXIDE (test code = CO2) 28.0 mmol/L 21-32 N ANION GAP (test code = GAP) 12.1 10-20 N GLUCOSE (test code = GLU) 110 mg/dL 74-106 H BLOOD UREA NITROGEN (test code = BUN) 7 mg/dL 7-18 N GLOMERULAR FILTRATION RATE (test code = GFR) > 60 mL/min >=60 Estimated GFR by using Modified MDRD formula.Chronic kidney disease is defined as either kidney damageor GFR <60 mL/min/1.73 m2 for >3 months. CREATININE (test code = CREAT) 0.70 mg/dL 0.55-1.02 N Note change in reference range due to change in reagent. BUN/CREATININE RATIO (test code = BUN/CREA) 10.0 10-20 N CALCIUM (test code = CA) 8.9 mg/dL 8.5-10.1 N [id number] 14:14:00* Test Item Value Reference Range Interpretation Comments TROPONIN-I (test code = TROPI) <0.015 ng/mL 0-0.045 N BASIC METABOLIC [id number] 14:04:00* Test Item Value Reference Range Interpretation Comments SODIUM (test code = NA) 141 mmol/L 136-145 N POTASSIUM (test code = K) 4.1 mmol/L 3.5-5.1 N CHLORIDE (test code = CL) 105.0 mmol/L 98-107 N CARBON DIOXIDE (test code = CO2) mmol/L 21-32 ANION GAP (test code = GAP) 10-20 GLUCOSE (test code = GLU) mg/dL 74-106 BLOOD UREA NITROGEN (test code = BUN) mg/dL 7-18 GLOMERULAR FILTRATION RATE (test code = GFR) mL/min >=60 CREATININE (test code = CREAT) mg/dL 0.55-1.02 BUN/CREATININE RATIO (test code = BUN/CREA) 10-20 CALCIUM (test code = CA) 8.9 mg/dL 8.5-10.1 N [id number] 14:04:00* Test Item Value Reference Range Interpretation Comments TROPONIN-I (test code = TROPI) ng/mL 0-0.045 BASIC METABOLIC [id number] 14:03:00* Test Item Value Reference Range Interpretation Comments SODIUM (test code = NA) 141 mmol/L 136-145 N POTASSIUM (test code = K) 4.1 mmol/L 3.5-5.1 N CHLORIDE (test code = CL) 105.0 mmol/L 98-107 N CARBON DIOXIDE (test code = CO2) mmol/L 21-32 ANION GAP (test code = GAP) 10-20 GLUCOSE (test code = GLU) mg/dL 74-106 BLOOD UREA NITROGEN (test code = BUN) mg/dL 7-18 GLOMERULAR FILTRATION RATE (test code = GFR) mL/min >=60 CREATININE (test code = CREAT) mg/dL 0.55-1.02 BUN/CREATININE RATIO (test code = BUN/CREA) 10-20 CALCIUM (test code = CA) mg/dL 8.5-10.1 [id number] 14:03:00* Test Item Value Reference Range Interpretation Comments TROPONIN-I (test code = TROPI) ng/mL 0-0.045 CBC W/O [id number] 14:00:00* Test Item Value Reference Range Interpretation Comments WHITE BLOOD CELL (test code = WBC) 20.4 K/mm3 4.5-12.5 H RED BLOOD CELL (test code = RBC) 3.58 mill/mm3 3.7-5.2 L HEMOGLOBIN (test code = HGB) 11.4 gram/dL 11.5-15.5 L HEMATOCRIT (test code = HCT) 34.3 % 36.0-46.0 L MEAN CELL VOLUME (test code = MCV) 95.8 fL 80-98 N MEAN CELL HGB (test code = MCH) 31.8 picogram 27.0-33.0 N MEAN CELL HGB CONCETRATION (test code = MCHC) 33.2 gram/dL 33.0-36. 0 N RED CELL DISTRIBUTION WIDTH (test code = RDW) 14.1 % 11.6-16. 2 N PLATELET COUNT (test code = PLT) 361 K/mm3 150-450 RESULT VERIFIED BY REPEAT ANALYSIS MEAN PLATELET VOLUME (test code = MPV) 9.2 fL 6.7-11.0 N VENOUS BLOOD [id number] 13:32:00* Test Item Value Reference Range Interpretation Comments VENOUS BLOOD GAS PH (test code = PHV) 7.41 7.30-7.40 H VENOUS BLOOD GAS PCO2 (test code = PCO2V) 44.1 mm Hg 39.0-51.0 N VENOUS BLOOD GAS PO2 (test code = PO2V) < 45.9 mm Hg 30.0-50.0 N VBG HCO3 (test code = HCO3V) 27.5 mmol/L 17.0-30.0 N VBG BASE EXCESS (test code = QUIQUE) 2.4 mmol/L -5.0-5.0 N VENOUS BLOOD GAS O2 SAT. (test code = O2SATV) 72 % 94-98 LL VENOUS BLOOD GAS FIO2 (test code = FIO2V) 36.0 PT. HGB (test code = PHGBVBG) 12.6 gram/dL 11.5-15.5 N VENOUS BLOOD GAS SITE (test code = SITEV) OT HEMATOCRIT (test code = HCT/VBG) 37 % 42-52 L HGB O2 SAT (test code = HBOSAT) 69.1 % 94.00-98.00 LL CARBOXYHEMOGLOBIN (test code = HOHGBT) 4.1 %totalHg 0.5-1.5 HH Results called to and read back by dioni 13:32 - 07/02/2019; by garcia rt METHEMOGLOBIN (test code = METHGB) 0.3 % 0.0-1.50 N - XR CHEST 1 [id number] 13:11:00 FAX: Ari Moreno DO [phone] [place]: B St: REG FAX: Ghulam Torres MD Name: VIRA MESSINA [facility] : 1955 Age/S: 64/F [address] [facility] Unit #: [id number] Loc: [place] [address] Phys: Ghulam Torres MD Acct: [id number] Dis Date: Status: REG ER PHONE #: [phone] Exam Date: 07/02/2019 1305 FAX #: [phone] Reason: Shortness of Breath EXAMS: CPT CODE: [id number] XR CHEST 1 V 39951 REASON FOR EXAM: Shortness of Breath EXAM ORDER DATE: 07/02/2019 12:48 PM Ordering: Ghulam Torres MD Attending:Ghulam Torres MD Location: PROCEDURE: - XR CHEST 1 V COMPARISON: 06/29/2019 FINDINGS: Portable AP frontal view of the chest obtained at 1:05 PM shows clear lungs without evidence of consolidation. There is no evidence of effusion. The heart size is within normal limits. Pulmonary vasculatures are unremarkable. IMPRESSION: No active disease. at 1311 Reported and signed by: Jj Russell M.D. CC: Ari Carmichael; Ghulam Torres MD Technologist: GONZALES AC RT(R) Trnscrd Date/Time/By: 07/02/2019 (1311) : By: [email or web address].VTL Orig Print D/T: S: 07/02/2019 (9073) PAGE 1 Signed Report BASIC METABOLIC [id number] 02:56:00* Test Item Value Reference Range Interpretation Comments SODIUM (test code = NA) 141 mmol/L 136-145 N POTASSIUM (test code = K) 4.2 mmol/L 3.5-5.1 N CHLORIDE (test code = CL) 108.0 mmol/L 98-107 H CARBON DIOXIDE (test code = CO2) 28.0 mmol/L 21-32 N ANION GAP (test code = GAP) 9.2 10-20 L GLUCOSE (test code = GLU) 121 mg/dL 74-106 H BLOOD UREA NITROGEN (test code = BUN) 11 mg/dL 7-18 N GLOMERULAR FILTRATION RATE (test code = GFR) > 60 mL/min >=60 Estimated GFR by using Modified MDRD formula.Chronic kidney disease is defined as either kidney damageor GFR <60 mL/min/1.73 m2 for >3 months. CREATININE (test code = CREAT) 0.60 mg/dL 0.55-1.02 N Note change in reference range due to change in reagent. BUN/CREATININE RATIO (test code = BUN/CREA) 17.5 10-20 N CALCIUM (test code = CA) 8.6 mg/dL 8.5-10.1 N BASIC METABOLIC [id number] 02:50:00* Test Item Value Reference Range Interpretation Comments SODIUM (test code = NA) 141 mmol/L 136-145 N POTASSIUM (test code = K) 4.2 mmol/L 3.5-5.1 N CHLORIDE (test code = CL) 108.0 mmol/L 98-107 H CARBON DIOXIDE (test code = CO2) mmol/L 21-32 ANION GAP (test code = GAP) 10-20 GLUCOSE (test code = GLU) mg/dL 74-106 BLOOD UREA NITROGEN (test code = BUN) mg/dL 7-18 GLOMERULAR FILTRATION RATE (test code = GFR) mL/min >=60 CREATININE (test code = CREAT) mg/dL 0.55-1.02 BUN/CREATININE RATIO (test code = BUN/CREA) 10-20 CALCIUM (test code = CA) mg/dL 8.5-10.1 CBC W/AUTO [id number] 02:35:00* Test Item Value Reference Range Interpretation Comments WHITE BLOOD CELL (test code = WBC) 18.9 K/mm3 4.5-12.5 H RED BLOOD CELL (test code = RBC) 3.24 mill/mm3 3.7-5.2 L HEMOGLOBIN (test code = HGB) 10.2 gram/dL 11.5-15.5 L HEMATOCRIT (test code = HCT) 31.3 % 36.0-46.0 L MEAN CELL VOLUME (test code = MCV) 96.6 fL 80-98 N MEAN CELL HGB (test code = MCH) 31.5 picogram 27.0-33.0 N MEAN CELL HGB CONCETRATION (test code = MCHC) 32.6 gram/dL 33.0-36. 0 L RED CELL DISTRIBUTION WIDTH (test code = RDW) 14.0 % 11.6-16. 2 N RED CELL DISTRIBUTION WIDTH SD (test code = RDW-SD) 50.0 fL 37 .0-51.0 N PLATELET COUNT (test code = PLT) 281 K/mm3 150-450 N MEAN PLATELET VOLUME (test code = MPV) 9.3 fL 6.7-11.0 N NEUTROPHIL % (test code = NT%) 82.8 % 39.0-69.0 H IMMATURE GRANULOCYTE % (test code = IG%) 0.4 % 0.0-5.0 N LYMPHOCYTE % (test code = LY%) 8.6 % 25.0-55.0 L MONOCYTE % (test code = MO%) 8.1 % 0.0-10.0 N EOSINOPHIL % (test code = EO%) 0.0 % 0.0-5.0 N BASOPHIL % (test code = BA%) 0.1 % 0.0-1.0 N NUCLEATED RBC % (test code = NRBC%) 0.0 % 0-0 N NEUTROPHIL # (test code = NT#) 15.68 K/mm3 1.8-7.7 H IMMATURE GRANULOCYTE # (test code = IG#) 0.08 x10 3/uL 0-0.03 H LYMPHOCYTE # (test code = LY#) 1.62 K/mm3 1.0-5.0 N MONOCYTE # (test code = MO#) 1.54 K/mm3 0-0.8 H EOSINOPHIL # (test code = EO#) 0.00 K/mm3 0.0-0.5 N BASOPHIL # (test code = BA#) 0.02 K/mm3 0.0-0.2 N NUCLEATED RBC # (test code = NRBC#) 0.00 K/mm3 0.0-0.1 N [id number] 20:01:00* Test Item Value Reference Range Interpretation Comments GLUBED (test code = GLUBED) 161 mg/dL 74-106 H Performed by certified dispensing operator at [facility] CREATINE KINASE (CK)2019-06-30 12:22:00* Test Item Value Reference Range Interpretation Comments CREATINE KINASE (CK) (test code = CK) 39 IUnit/L 26-208 N LACTIC DEHYDROGENASE(LDH)2019-06-30 12:22:00* Test Item Value Reference Range Interpretation Comments LACTIC DEHYDROGENASE(LDH) (test code = LDH) 124 IUnit/L 84-246 N FOLIC [id number] 12:22:00* Test Item Value Reference Range Interpretation Comments FOLIC ACID (test code = FOL) 8.0 ng/mL 3.10-17.50 N [id number] 12:22:00* Test Item Value Reference Range Interpretation Comments FERRITIN (test code = ASHOK) 40 ng/mL 8-388 N [id number] 12:14:00* Test Item Value Reference Range Interpretation Comments GLYCOSYLATED HEMOGLOBIN (HA1C) (test code = GLYHGB) 5.5 % HbA1 SUGGESTED DIAGNOSIS: HbA1C (%) Diabetic >6.4Prediabetes 5.7 - 6.4Normal <5.7 ESTIMATED AVERAGE GLUCOSE (test code = EAG) 111 MG/DL B-TYPE NATRIURETIC [id number] 12:12:00* Test Item Value Reference Range Interpretation Comments B-TYPE NATRIURETIC PEPTIDE (test code = BNP) 104.46 pgram/mL 0-100 H C REACTIVE [id number] 12:07:00* Test Item Value Reference Range Interpretation Comments C REACTIVE PROTEIN (test code = CRP) 0.98 mg/dL 0-0.3 H LACTIC [id number] 20:36:00* Test Item Value Reference Range Interpretation Comments LACTIC ACID (test code = LACT) 1.4 mmol/L 0.4-1.9 N BASIC METABOLIC [id number] 19:52:00* Test Item Value Reference Range Interpretation Comments SODIUM (test code = NA) 143 mmol/L 136-145 N POTASSIUM (test code = K) 3.8 mmol/L 3.5-5.1 N CHLORIDE (test code = CL) 106.0 mmol/L 98-107 N CARBON DIOXIDE (test code = CO2) 29.0 mmol/L 21-32 N ANION GAP (test code = GAP) 11.8 10-20 N GLUCOSE (test code = GLU) 107 mg/dL 74-106 H BLOOD UREA NITROGEN (test code = BUN) 8 mg/dL 7-18 N GLOMERULAR FILTRATION RATE (test code = GFR) > 60 mL/min >=60 Estimated GFR by using Modified MDRD formula.Chronic kidney disease is defined as either kidney damageor GFR <60 mL/min/1.73 m2 for >3 months. CREATININE (test code = CREAT) 0.80 mg/dL 0.55-1.02 N Note change in reference range due to change in reagent. BUN/CREATININE RATIO (test code = BUN/CREA) 10.2 10-20 N CALCIUM (test code = CA) 8.9 mg/dL 8.5-10.1 N [id number] 19:52:00* Test Item Value Reference Range Interpretation Comments TROPONIN-I (test code = TROPI) <0.015 ng/mL 0-0.045 N BASIC METABOLIC [id number] 19:47:00* Test Item Value Reference Range Interpretation Comments SODIUM (test code = NA) 143 mmol/L 136-145 N POTASSIUM (test code = K) 3.8 mmol/L 3.5-5.1 N CHLORIDE (test code = CL) 106.0 mmol/L 98-107 N CARBON DIOXIDE (test code = CO2) mmol/L 21-32 ANION GAP (test code = GAP) 10-20 GLUCOSE (test code = GLU) mg/dL 74-106 BLOOD UREA NITROGEN (test code = BUN) mg/dL 7-18 GLOMERULAR FILTRATION RATE (test code = GFR) mL/min >=60 CREATININE (test code = CREAT) mg/dL 0.55-1.02 BUN/CREATININE RATIO (test code = BUN/CREA) 10-20 CALCIUM (test code = CA) 8.9 mg/dL 8.5-10.1 N [id number] 19:47:00* Test Item Value Reference Range Interpretation Comments TROPONIN-I (test code = TROPI) ng/mL 0-0.045 CBC W/O [id number] 19:46:00* Test Item Value Reference Range Interpretation Comments WHITE BLOOD CELL (test code = WBC) 14.4 K/mm3 4.5-12.5 H RED BLOOD CELL (test code = RBC) 3.89 mill/mm3 3.7-5.2 N HEMOGLOBIN (test code = HGB) 12.0 gram/dL 11.5-15.5 N HEMATOCRIT (test code = HCT) 38.5 % 36.0-46.0 N MEAN CELL VOLUME (test code = MCV) 99.0 fL 80-98 H MEAN CELL HGB (test code = MCH) 30.8 picogram 27.0-33.0 N MEAN CELL HGB CONCETRATION (test code = MCHC) 31.2 gram/dL 33.0-36. 0 L RED CELL DISTRIBUTION WIDTH (test code = RDW) 14.1 % 11.6-16. 2 N PLATELET COUNT (test code = PLT) 309 K/mm3 150-450 N MEAN PLATELET VOLUME (test code = MPV) 8.9 fL 6.7-11.0 N CBC W/O [id number] 19:42:00* Test Item Value Reference Range Interpretation Comments WHITE BLOOD CELL (test code = WBC) K/mm3 4.5-12.5 RED BLOOD CELL (test code = RBC) mill/mm3 3.7-5.2 HEMOGLOBIN (test code = HGB) 12.0 gram/dL 11.5-15.5 N HEMATOCRIT (test code = HCT) 38.5 % 36.0-46.0 N MEAN CELL VOLUME (test code = MCV) fL 80-98 MEAN CELL HGB (test code = MCH) picogram 27.0-33.0 MEAN CELL HGB CONCETRATION (test code = MCHC) gram/dL 33.0-36. 0 RED CELL DISTRIBUTION WIDTH (test code = RDW) % 11.6-16. 2 PLATELET COUNT (test code = PLT) K/mm3 150-450 MEAN PLATELET VOLUME (test code = MPV) fL 6.7-11.0 - XR [facility] 1 [id number] 19:26:00 FAX: Surjit Curtis [phone] [place]: [address] St: REG FAX: Ari Moreno DO [phone] Name: VIRA MESSINA [facility] : 1955 Age/S: 64/F Eliseo Knowles Unit #: [id number] Loc: [place] [address] Phys: Surjit Finn MD Acct: [id number] Dis Date: Status: REG ER PHONE #: [phone] Exam Date: 06/29/2019 1846 FAX #: [phone] Reason: Shortness of Breath EXAMS: CPT CODE: [id number] XR CHEST 1 V 84923 EXAM: Chest x-ray, one view; INFORMATION: Shortness of breath; IMPRESSION: 1. No evidence of active cardiopulmonary disease. 2. No significant change compared with a study from May 12, 2019. Aortic calcifications. Location code: [facility] at 1925 Reported and signed by: Adam Beckett M.D. CC: Surjit Finn MD; Ari Carmichael Technologist: MIKAYLA RATLIFF RT (R); ... Trnscrd Date/Time/By: 06/29/2019 (1925) : By: AndreeaGRW Orig Print D/T: S: 06/29/2019 (1928) PAGE 1 Signed Report DRUGS OF ABUSE SCREEN [id number] 20:48:00* Test Item Value Reference Range Interpretation Comments UA PH DIPSTICK (test code = ABHISHEK) 9.0 5.0-8.0 A URN COCAINE (test code = COCAURN) NEGATIVE <300 ng/mL URN CANNABINOIDS (test code = CANNABURN) NEGATIVE <50 ng/mL URN AMPHETAMINE (test code = AMPHETURN) NEGATIVE <1000 ng/mL URN BARBITURATE (test code = BARBITURN) NEGATIVE <200 ng/mL URN BENZODIAZEPINE (test code = BENZOURN) NEGATIVE <200 ng/mL URN OPIATES (test code = OPIATURN) POSITIVE <300 ng/mL A This test provides only a preliminary test result. A morespecific alternate chemical method must be used in order toobtain a confirmed analytical result. Gas chromatography/mass spectrometry (GC/MS) is thepreferred confirmatory method. Other chemical confirmationmethods are available. Clinical consideration and professional judgment should be applied to any drug of abusetest result, particularly when preliminary positive resultsare used.Unconfirmed screening results must not be used fornon-medical purposes (e.g., employment testing, legaltesting). URN PHENCYCLIDINE (PCP) (test code = PHENCURN) NEGATIVE <25 ng/ mL URN METHADONE (test code = METHAURN) NEGATIVE <300 ng/mL 1732]DRUGS OF ABUSE SCREEN [id number] 20:06:00* Test Item Value Reference Range Interpretation Comments UA PH DIPSTICK (test code = ABHISHEK) 5.0-8.0 URN COCAINE (test code = COCAURN) NEGATIVE <300 ng/mL URN CANNABINOIDS (test code = CANNABURN) NEGATIVE <50 ng/mL URN AMPHETAMINE (test code = AMPHETURN) NEGATIVE <1000 ng/mL URN BARBITURATE (test code = BARBITURN) NEGATIVE <200 ng/mL URN BENZODIAZEPINE (test code = BENZOURN) NEGATIVE <200 ng/mL URN OPIATES (test code = OPIATURN) POSITIVE <300 ng/mL A This test provides only a preliminary test result. A morespecific alternate chemical method must be used in order toobtain a confirmed analytical result. Gas chromatography/mass spectrometry (GC/MS) is thepreferred confirmatory method. Other chemical confirmationmethods are available. Clinical consideration and professional judgment should be applied to any drug of abusetest result, particularly when preliminary positive resultsare used.Unconfirmed screening results must not be used fornon-medical purposes (e.g., employment testing, legaltesting). URN PHENCYCLIDINE (PCP) (test code = PHENCURN) NEGATIVE <25 ng/ mL URN METHADONE (test code = METHAURN) NEGATIVE <300 ng/mL 1732][id number] 21:14:00* Test Item Value Reference Range Interpretation Comments GLUBED (test code = GLUBED) 96 mg/dL 74-106 N Performed by certified dispensing operator at [facility] [id number] 17:19:00* Test Item Value Reference Range Interpretation Comments ALCOHOL (test code = ALC) < 3 mg/dL 0.0-3.0 N -- INTERPRETIVE DATA NOTE: POSITIVE SCREENING RESULTS SHOULD BE CONSIDERED PRESUMPTIVE.WHEN COLLECTED FOR MEDICAL PURPOSES ONLY. SPECIMEN WILL NOTBE COLLECTED BY CHAIN OF CUSTODY.IF A CONFIRMATION OF POSITIVE RESULTS IS DESIRED, ACONFIRMATION TEST MUST BE REQUESTED BY THE PHYSICIAN AT ANADDITIONAL CHARGE TO THE PATIENT. B-TYPE NATRIURETIC [id number] 16:06:00* Test Item Value Reference Range Interpretation Comments B-TYPE NATRIURETIC PEPTIDE (test code = BNP) 28.85 pgram/mL 0-100 N BASIC METABOLIC [id number] 16:01:00* Test Item Value Reference Range Interpretation Comments SODIUM (test code = NA) 139 mmol/L 136-145 N POTASSIUM (test code = K) 4.1 mmol/L 3.5-5.1 N CHLORIDE (test code = CL) 104.0 mmol/L 98-107 N CARBON DIOXIDE (test code = CO2) 30.0 mmol/L 21-32 N ANION GAP (test code = GAP) 9.1 10-20 L GLUCOSE (test code = GLU) 90 mg/dL 74-106 N BLOOD UREA NITROGEN (test code = BUN) 9 mg/dL 7-18 N GLOMERULAR FILTRATION RATE (test code = GFR) > 60 mL/min >=60 Estimated GFR by using Modified MDRD formula.Chronic kidney disease is defined as either kidney damageor GFR <60 mL/min/1.73 m2 for >3 months. CREATININE (test code = CREAT) 0.60 mg/dL 0.55-1.02 N Note change in reference range due to change in reagent. BUN/CREATININE RATIO (test code = BUN/CREA) 15.2 10-20 N CALCIUM (test code = CA) 9.8 mg/dL 8.5-10.1 N [id number] 16:01:00* Test Item Value Reference Range Interpretation Comments TROPONIN-I (test code = TROPI) <0.015 ng/mL 0-0.045 N LACTIC [id number] 15:51:00* Test Item Value Reference Range Interpretation Comments LACTIC ACID (test code = LACT) 0.8 mmol/L 0.4-1.9 N BASIC METABOLIC [id number] 15:47:00* Test Item Value Reference Range Interpretation Comments SODIUM (test code = NA) 139 mmol/L 136-145 N POTASSIUM (test code = K) 4.1 mmol/L 3.5-5.1 N CHLORIDE (test code = CL) 104.0 mmol/L 98-107 N CARBON DIOXIDE (test code = CO2) mmol/L 21-32 ANION GAP (test code = GAP) 10-20 GLUCOSE (test code = GLU) mg/dL 74-106 BLOOD UREA NITROGEN (test code = BUN) mg/dL 7-18 GLOMERULAR FILTRATION RATE (test code = GFR) mL/min >=60 CREATININE (test code = CREAT) mg/dL 0.55-1.02 BUN/CREATININE RATIO (test code = BUN/CREA) 10-20 CALCIUM (test code = CA) mg/dL 8.5-10.1 [id number] 15:47:00* Test Item Value Reference Range Interpretation Comments TROPONIN-I (test code = TROPI) ng/mL 0-0.045 CBC W/O [id number] 15:37:00* Test Item Value Reference Range Interpretation Comments WHITE BLOOD CELL (test code = WBC) 12.3 K/mm3 4.5-12.5 N RED BLOOD CELL (test code = RBC) 4.17 mill/mm3 3.7-5.2 N HEMOGLOBIN (test code = HGB) 12.9 gram/dL 11.5-15.5 N HEMATOCRIT (test code = HCT) 41.0 % 36.0-46.0 N MEAN CELL VOLUME (test code = MCV) 98.3 fL 80-98 H MEAN CELL HGB (test code = MCH) 30.9 picogram 27.0-33.0 N MEAN CELL HGB CONCETRATION (test code = MCHC) 31.5 gram/dL 33.0-36. 0 L RED CELL DISTRIBUTION WIDTH (test code = RDW) 13.4 % 11.6-16. 2 N PLATELET COUNT (test code = PLT) 319 K/mm3 150-450 N MEAN PLATELET VOLUME (test code = MPV) 9.0 fL 6.7-11.0 N CBC W/O [id number] 15:36:00* Test Item Value Reference Range Interpretation Comments WHITE BLOOD CELL (test code = WBC) K/mm3 4.5-12.5 RED BLOOD CELL (test code = RBC) mill/mm3 3.7-5.2 HEMOGLOBIN (test code = HGB) 12.9 gram/dL 11.5-15.5 N HEMATOCRIT (test code = HCT) 41.0 % 36.0-46.0 N MEAN CELL VOLUME (test code = MCV) fL 80-98 MEAN CELL HGB (test code = MCH) picogram 27.0-33.0 MEAN CELL HGB CONCETRATION (test code = MCHC) gram/dL 33.0-36. 0 RED CELL DISTRIBUTION WIDTH (test code = RDW) % 11.6-16. 2 PLATELET COUNT (test code = PLT) K/mm3 150-450 MEAN PLATELET VOLUME (test code = MPV) fL 6.7-11.0 - XR CHEST 1 [id number] 14:22:00 FAX: Roshan Petty DO [place]: B St: REG Name: Ramirez TORIVIRA JASSO [facility] : [birth year] Age/S: 64/F [address] [facility] Unit #: [id number] Loc: [place] [address] Phys: Roshan Petty DO Acct: [id number] Dis Date: Status: REG ER PHONE #: [phone] Exam Date: 05/12/2019 1350 FAX #: [phone] Reason: Shortness of Breath EXAMS: CPT CODE: [id number] XR CHEST 1 V 92885 REASON FOR EXAM: Shortness of Breath Exam Order Date: 05/12/2019 1:33 PM Ordering Ian: Roshan Petty DO PROCEDURE: - XR CHEST 1 V COMPARISON: Frontal chest x-ray March 31, 2019 FINDINGS: The lungs are clear. There is no pleural effusion or pneumothorax. P ulmonary vascularity is within normal limits. Cardiomediastinal si lhouette is normal in size for technique. The mediastinal contours are wit hin normal limits. There are degenerative changes in the spine. Th ere is also height loss of the T9 and T11 vertebral bodies, similar to the previous study. The visualized upper abdomen is within normal shore its. IMPRESSION: No acute cardiopulmonary proces s. Degenerative changes of the thoracic spine with multilevel vertebral body height loss appears similar to the previous exam. Location: [facility] at 1422 Reported and signed by: Rafita Archuleta MD CC: Roshan Petty DO Technologist: RT LAKSHMI(R) Trnscrd Date/Time/By: 05/12/20 19 (7750) : By: AndreeaRR31 Orig Print D/T: S: 05/12/2019 (6931) PAGE 1 Signed Report CBC W/AUTO [id number] 04:59:00* Test Item Value Reference Range Interpretation Comments WHITE BLOOD CELL (test code = WBC) 6.3 K/mm3 4.5-12.5 N RED BLOOD CELL (test code = RBC) 3.69 mill/mm3 3.7-5.2 L HEMOGLOBIN (test code = HGB) 11.7 gram/dL 11.5-15.5 N HEMATOCRIT (test code = HCT) 35.5 % 36.0-46.0 L MEAN CELL VOLUME (test code = MCV) 96.2 fL 80-98 N MEAN CELL HGB (test code = MCH) 31.7 picogram 27.0-33.0 N MEAN CELL HGB CONCETRATION (test code = MCHC) 33.0 gram/dL 33.0-36. 0 N RED CELL DISTRIBUTION WIDTH (test code = RDW) 12.3 % 11.6-16. 2 N RED CELL DISTRIBUTION WIDTH SD (test code = RDW-SD) 43.6 fL 37 .0-51.0 N PLATELET COUNT (test code = PLT) 190 K/mm3 150-450 RESULT VERIFIED BY REPEAT ANALYSIS MEAN PLATELET VOLUME (test code = MPV) 9.6 fL 6.7-11.0 N NEUTROPHIL % (test code = NT%) 88.9 % 39.0-69.0 H IMMATURE GRANULOCYTE % (test code = IG%) 0.5 % 0.0-5.0 N LYMPHOCYTE % (test code = LY%) 8.6 % 25.0-55.0 L MONOCYTE % (test code = MO%) 1.0 % 0.0-10.0 N EOSINOPHIL % (test code = EO%) 0.8 % 0.0-5.0 N BASOPHIL % (test code = BA%) 0.2 % 0.0-1.0 N NUCLEATED RBC % (test code = NRBC%) 0.0 % 0-0 N NEUTROPHIL # (test code = NT#) 5.61 K/mm3 1.8-7.7 N IMMATURE GRANULOCYTE # (test code = IG#) 0.03 x10 3/uL 0-0.03 N LYMPHOCYTE # (test code = LY#) 0.54 K/mm3 1.0-5.0 L MONOCYTE # (test code = MO#) 0.06 K/mm3 0-0.8 N EOSINOPHIL # (test code = EO#) 0.05 K/mm3 0.0-0.5 N BASOPHIL # (test code = BA#) 0.01 K/mm3 0.0-0.2 N NUCLEATED RBC # (test code = NRBC#) 0.00 K/mm3 0.0-0.1 N MANUAL DIFF REQUIRED (test code = MDIFF) NO, ONLY SCAN NEEDED DIFFERENTIAL [id number] 04:59:00* Test Item Value Reference Range Interpretation Comments STAIN ACCEPTABILITY (test code = STN ACCEPTABLE) STAIN ACCEPTABLE ANISOCYTOSIS (test code = ANISO) 1+ MACROCYTOSIS (test code = MACR) 1+ PLATELET ESTIMATE (test code = PLTEST) ADEQUATE PLATELET MORPHOLOGY (test code = PLTMORPH) NORMAL [id number] 04:15:00* Test Item Value Reference Range Interpretation Comments TROPONIN-I (test code = TROPI) <0.015 ng/mL 0-0.045 N BASIC METABOLIC [id number] 04:13:00* Test Item Value Reference Range Interpretation Comments SODIUM (test code = NA) 139 mmol/L 136-145 N POTASSIUM (test code = K) 3.7 mmol/L 3.5-5.1 N CHLORIDE (test code = CL) 103.0 mmol/L 98-107 N CARBON DIOXIDE (test code = CO2) 24.0 mmol/L 21-32 N ANION GAP (test code = GAP) 15.7 10-20 N GLUCOSE (test code = GLU) 171 mg/dL 74-106 H BLOOD UREA NITROGEN (test code = BUN) 9 mg/dL 7-18 N GLOMERULAR FILTRATION RATE (test code = GFR) > 60 mL/min >=60 Estimated GFR by using Modified MDRD formula.Chronic kidney disease is defined as either kidney damageor GFR <60 mL/min/1.73 m2 for >3 months. CREATININE (test code = CREAT) 0.60 mg/dL 0.55-1.02 N Note change in reference range due to change in reagent. BUN/CREATININE RATIO (test code = BUN/CREA) 15.9 10-20 N CALCIUM (test code = CA) 9.2 mg/dL 8.5-10.1 N CBC W/AUTO [id number] 03:51:00* Test Item Value Reference Range Interpretation Comments WHITE BLOOD CELL (test code = WBC) 6.3 K/mm3 4.5-12.5 N RED BLOOD CELL (test code = RBC) 3.69 mill/mm3 3.7-5.2 L HEMOGLOBIN (test code = HGB) 11.7 gram/dL 11.5-15.5 N HEMATOCRIT (test code = HCT) 35.5 % 36.0-46.0 L MEAN CELL VOLUME (test code = MCV) 96.2 fL 80-98 N MEAN CELL HGB (test code = MCH) 31.7 picogram 27.0-33.0 N MEAN CELL HGB CONCETRATION (test code = MCHC) 33.0 gram/dL 33.0-36. 0 N RED CELL DISTRIBUTION WIDTH (test code = RDW) 12.3 % 11.6-16. 2 N RED CELL DISTRIBUTION WIDTH SD (test code = RDW-SD) 43.6 fL 37 .0-51.0 N PLATELET COUNT (test code = PLT) 190 K/mm3 150-450 RESULT VERIFIED BY REPEAT ANALYSIS MEAN PLATELET VOLUME (test code = MPV) 9.6 fL 6.7-11.0 N NEUTROPHIL % (test code = NT%) 88.9 % 39.0-69.0 H IMMATURE GRANULOCYTE % (test code = IG%) 0.5 % 0.0-5.0 N LYMPHOCYTE % (test code = LY%) 8.6 % 25.0-55.0 L MONOCYTE % (test code = MO%) 1.0 % 0.0-10.0 N EOSINOPHIL % (test code = EO%) 0.8 % 0.0-5.0 N BASOPHIL % (test code = BA%) 0.2 % 0.0-1.0 N NUCLEATED RBC % (test code = NRBC%) 0.0 % 0-0 N NEUTROPHIL # (test code = NT#) 5.61 K/mm3 1.8-7.7 N IMMATURE GRANULOCYTE # (test code = IG#) 0.03 x10 3/uL 0-0.03 N LYMPHOCYTE # (test code = LY#) 0.54 K/mm3 1.0-5.0 L MONOCYTE # (test code = MO#) 0.06 K/mm3 0-0.8 N EOSINOPHIL # (test code = EO#) 0.05 K/mm3 0.0-0.5 N BASOPHIL # (test code = BA#) 0.01 K/mm3 0.0-0.2 N NUCLEATED RBC # (test code = NRBC#) 0.00 K/mm3 0.0-0.1 N MANUAL DIFF REQUIRED (test code = MDIFF) NO, ONLY SCAN NEEDED DIFFERENTIAL [id number] 03:51:00* Test Item Value Reference Range Interpretation Comments STAIN ACCEPTABILITY (test code = STN ACCEPTABLE) MORPHOLOGY COMMENT (test code = MOC) PLATELET ESTIMATE (test code = PLTEST) PLATELET MORPHOLOGY (test code = PLTMORPH) CBC W/AUTO [id number] 03:49:00* Test Item Value Reference Range Interpretation Comments WHITE BLOOD CELL (test code = WBC) 6.3 K/mm3 4.5-12.5 N RED BLOOD CELL (test code = RBC) 3.69 mill/mm3 3.7-5.2 L HEMOGLOBIN (test code = HGB) 11.7 gram/dL 11.5-15.5 N HEMATOCRIT (test code = HCT) 35.5 % 36.0-46.0 L MEAN CELL VOLUME (test code = MCV) 96.2 fL 80-98 N MEAN CELL HGB (test code = MCH) 31.7 picogram 27.0-33.0 N MEAN CELL HGB CONCETRATION (test code = MCHC) 33.0 gram/dL 33.0-36. 0 N RED CELL DISTRIBUTION WIDTH (test code = RDW) 12.3 % 11.6-16. 2 N RED CELL DISTRIBUTION WIDTH SD (test code = RDW-SD) 43.6 fL 37 .0-51.0 N PLATELET COUNT (test code = PLT) 190 K/mm3 150-450 RESULT VERIFIED BY REPEAT ANALYSIS MEAN PLATELET VOLUME (test code = MPV) 9.6 fL 6.7-11.0 N NEUTROPHIL % (test code = NT%) 88.9 % 39.0-69.0 H IMMATURE GRANULOCYTE % (test code = IG%) 0.5 % 0.0-5.0 N LYMPHOCYTE % (test code = LY%) 8.6 % 25.0-55.0 L MONOCYTE % (test code = MO%) 1.0 % 0.0-10.0 N EOSINOPHIL % (test code = EO%) 0.8 % 0.0-5.0 N BASOPHIL % (test code = BA%) 0.2 % 0.0-1.0 N NUCLEATED RBC % (test code = NRBC%) 0.0 % 0-0 N NEUTROPHIL # (test code = NT#) 5.61 K/mm3 1.8-7.7 N IMMATURE GRANULOCYTE # (test code = IG#) 0.03 x10 3/uL 0-0.03 N LYMPHOCYTE # (test code = LY#) 0.54 K/mm3 1.0-5.0 L MONOCYTE # (test code = MO#) 0.06 K/mm3 0-0.8 N EOSINOPHIL # (test code = EO#) 0.05 K/mm3 0.0-0.5 N BASOPHIL # (test code = BA#) 0.01 K/mm3 0.0-0.2 N NUCLEATED RBC # (test code = NRBC#) 0.00 K/mm3 0.0-0.1 N MANUAL DIFF REQUIRED (test code = MDIFF) NO, ONLY SCAN NEEDED DIFFERENTIAL [id number] 03:49:00* Test Item Value Reference Range Interpretation Comments STAIN ACCEPTABILITY (test code = STN ACCEPTABLE) CABOT RINGS (test code = CAB) MORPHOLOGY COMMENT (test code = MOC) PLATELET ESTIMATE (test code = PLTEST) PLATELET MORPHOLOGY (test code = PLTMORPH) CBC W/AUTO [id number] 03:49:00* Test Item Value Reference Range Interpretation Comments WHITE BLOOD CELL (test code = WBC) 6.3 K/mm3 4.5-12.5 N RED BLOOD CELL (test code = RBC) 3.69 mill/mm3 3.7-5.2 L HEMOGLOBIN (test code = HGB) 11.7 gram/dL 11.5-15.5 N HEMATOCRIT (test code = HCT) 35.5 % 36.0-46.0 L MEAN CELL VOLUME (test code = MCV) 96.2 fL 80-98 N MEAN CELL HGB (test code = MCH) 31.7 picogram 27.0-33.0 N MEAN CELL HGB CONCETRATION (test code = MCHC) 33.0 gram/dL 33.0-36. 0 N RED CELL DISTRIBUTION WIDTH (test code = RDW) 12.3 % 11.6-16. 2 N RED CELL DISTRIBUTION WIDTH SD (test code = RDW-SD) 43.6 fL 37 .0-51.0 N PLATELET COUNT (test code = PLT) 190 K/mm3 150-450 RESULT VERIFIED BY REPEAT ANALYSIS MEAN PLATELET VOLUME (test code = MPV) 9.6 fL 6.7-11.0 N NEUTROPHIL % (test code = NT%) 88.9 % 39.0-69.0 H IMMATURE GRANULOCYTE % (test code = IG%) 0.5 % 0.0-5.0 N LYMPHOCYTE % (test code = LY%) 8.6 % 25.0-55.0 L MONOCYTE % (test code = MO%) 1.0 % 0.0-10.0 N EOSINOPHIL % (test code = EO%) 0.8 % 0.0-5.0 N BASOPHIL % (test code = BA%) 0.2 % 0.0-1.0 N NUCLEATED RBC % (test code = NRBC%) 0.0 % 0-0 N NEUTROPHIL # (test code = NT#) 5.61 K/mm3 1.8-7.7 N IMMATURE GRANULOCYTE # (test code = IG#) 0.03 x10 3/uL 0-0.03 N LYMPHOCYTE # (test code = LY#) 0.54 K/mm3 1.0-5.0 L MONOCYTE # (test code = MO#) 0.06 K/mm3 0-0.8 N EOSINOPHIL # (test code = EO#) 0.05 K/mm3 0.0-0.5 N BASOPHIL # (test code = BA#) 0.01 K/mm3 0.0-0.2 N NUCLEATED RBC # (test code = NRBC#) 0.00 K/mm3 0.0-0.1 N MANUAL DIFF REQUIRED (test code = MDIFF) NO, ONLY SCAN NEEDED DIFFERENTIAL [id number] 03:49:00* Test Item Value Reference Range Interpretation Comments STAIN ACCEPTABILITY (test code = STN ACCEPTABLE) MORPHOLOGY COMMENT (test code = MOC) PLATELET ESTIMATE (test code = PLTEST) PLATELET MORPHOLOGY (test code = PLTMORPH) CBC W/AUTO [id number] 03:49:00* Test Item Value Reference Range Interpretation Comments WHITE BLOOD CELL (test code = WBC) 6.3 K/mm3 4.5-12.5 N RED BLOOD CELL (test code = RBC) 3.69 mill/mm3 3.7-5.2 L HEMOGLOBIN (test code = HGB) 11.7 gram/dL 11.5-15.5 N HEMATOCRIT (test code = HCT) 35.5 % 36.0-46.0 L MEAN CELL VOLUME (test code = MCV) 96.2 fL 80-98 N MEAN CELL HGB (test code = MCH) 31.7 picogram 27.0-33.0 N MEAN CELL HGB CONCETRATION (test code = MCHC) 33.0 gram/dL 33.0-36. 0 N RED CELL DISTRIBUTION WIDTH (test code = RDW) 12.3 % 11.6-16. 2 N RED CELL DISTRIBUTION WIDTH SD (test code = RDW-SD) 43.6 fL 37 .0-51.0 N PLATELET COUNT (test code = PLT) 190 K/mm3 150-450 RESULT VERIFIED BY REPEAT ANALYSIS MEAN PLATELET VOLUME (test code = MPV) 9.6 fL 6.7-11.0 N NEUTROPHIL % (test code = NT%) 88.9 % 39.0-69.0 H IMMATURE GRANULOCYTE % (test code = IG%) 0.5 % 0.0-5.0 N LYMPHOCYTE % (test code = LY%) 8.6 % 25.0-55.0 L MONOCYTE % (test code = MO%) 1.0 % 0.0-10.0 N EOSINOPHIL % (test code = EO%) 0.8 % 0.0-5.0 N BASOPHIL % (test code = BA%) 0.2 % 0.0-1.0 N NUCLEATED RBC % (test code = NRBC%) 0.0 % 0-0 N NEUTROPHIL # (test code = NT#) 5.61 K/mm3 1.8-7.7 N IMMATURE GRANULOCYTE # (test code = IG#) 0.03 x10 3/uL 0-0.03 N LYMPHOCYTE # (test code = LY#) 0.54 K/mm3 1.0-5.0 L MONOCYTE # (test code = MO#) 0.06 K/mm3 0-0.8 N EOSINOPHIL # (test code = EO#) 0.05 K/mm3 0.0-0.5 N BASOPHIL # (test code = BA#) 0.01 K/mm3 0.0-0.2 N NUCLEATED RBC # (test code = NRBC#) 0.00 K/mm3 0.0-0.1 N MANUAL DIFF REQUIRED (test code = MDIFF) NO, ONLY SCAN NEEDED DIFFERENTIAL [id number] 03:49:00* Test Item Value Reference Range Interpretation Comments STAIN ACCEPTABILITY (test code = STN ACCEPTABLE) CABOT RINGS (test code = CAB) MORPHOLOGY COMMENT (test code = MOC) PLATELET ESTIMATE (test code = PLTEST) PLATELET MORPHOLOGY (test code = PLTMORPH) THYROID STIMULATING [id number] 22:36:00* Test Item Value Reference Range Interpretation Comments THYROID STIMULATING HORMONE (test code = TSH) 0.141 uIU/mL 0.36-3.7 4 L TSH REFERENCE RANGES: EUTHYROID: 0.35 - 4.3 mIU/mL HYPO : > 5.5 mIU/mL HYPER : < 0.35 mIU/mL [id number] 22:24:00* Test Item Value Reference Range Interpretation Comments TROPONIN-I (test code = TROPI) <0.015 ng/mL 0-0.045 N COMMENTS TO SERVICE GREETER: COLLECT 3 HOURS AFTER PREVIOUS SAMPLEB-TYPE NATRIURETIC [id number] 16:33:00* Test Item Value Reference Range Interpretation Comments B-TYPE NATRIURETIC PEPTIDE (test code = BNP) 18.63 pgram/mL 0-100 N BASIC METABOLIC [id number] 16:21:00* Test Item Value Reference Range Interpretation Comments SODIUM (test code = NA) 137 mmol/L 136-145 N POTASSIUM (test code = K) 3.5 mmol/L 3.5-5.1 N CHLORIDE (test code = CL) 105.0 mmol/L 98-107 N CARBON DIOXIDE (test code = CO2) 25.0 mmol/L 21-32 N ANION GAP (test code = GAP) 10.5 10-20 N GLUCOSE (test code = GLU) 103 mg/dL 74-106 N BLOOD UREA NITROGEN (test code = BUN) 9 mg/dL 7-18 N GLOMERULAR FILTRATION RATE (test code = GFR) > 60 mL/min >=60 Estimated GFR by using Modified MDRD formula.Chronic kidney disease is defined as either kidney damageor GFR <60 mL/min/1.73 m2 for >3 months. CREATININE (test code = CREAT) 0.60 mg/dL 0.55-1.02 N Note change in reference range due to change in reagent. BUN/CREATININE RATIO (test code = BUN/CREA) 14.2 10-20 N CALCIUM (test code = CA) 9.6 mg/dL 8.5-10.1 N [id number] 16:21:00* Test Item Value Reference Range Interpretation Comments LIPASE (test code = LIP) 13 U/L 73.0-393.0 L [id number] 16:21:00* Test Item Value Reference Range Interpretation Comments TROPONIN-I (test code = TROPI) <0.015 ng/mL 0-0.045 N BASIC METABOLIC [id number] 16:13:00* Test Item Value Reference Range Interpretation Comments SODIUM (test code = NA) 137 mmol/L 136-145 N POTASSIUM (test code = K) 3.5 mmol/L 3.5-5.1 N CHLORIDE (test code = CL) 105.0 mmol/L 98-107 N CARBON DIOXIDE (test code = CO2) mmol/L 21-32 ANION GAP (test code = GAP) 10-20 GLUCOSE (test code = GLU) mg/dL 74-106 BLOOD UREA NITROGEN (test code = BUN) mg/dL 7-18 GLOMERULAR FILTRATION RATE (test code = GFR) mL/min >=60 CREATININE (test code = CREAT) mg/dL 0.55-1.02 BUN/CREATININE RATIO (test code = BUN/CREA) 10-20 CALCIUM (test code = CA) mg/dL 8.5-10.1 [id number] 16:13:00* Test Item Value Reference Range Interpretation Comments LIPASE (test code = LIP) U/L 73.0-393.0 [id number]-[id number] 16:13:00* Test Item Value Reference Range Interpretation Comments TROPONIN-I (test code = TROPI) ng/mL 0-0.045 CBC W/O [id number] 16:09:00* Test Item Value Reference Range Interpretation Comments WHITE BLOOD CELL (test code = WBC) 11.8 K/mm3 4.5-12.5 N RED BLOOD CELL (test code = RBC) 4.05 mill/mm3 3.7-5.2 N HEMOGLOBIN (test code = HGB) 12.9 gram/dL 11.5-15.5 N HEMATOCRIT (test code = HCT) 39.3 % 36.0-46.0 N MEAN CELL VOLUME (test code = MCV) 97.0 fL 80-98 N MEAN CELL HGB (test code = MCH) 31.9 picogram 27.0-33.0 N MEAN CELL HGB CONCETRATION (test code = MCHC) 32.8 gram/dL 33.0-36. 0 L RED CELL DISTRIBUTION WIDTH (test code = RDW) 12.7 % 11.6-16. 2 N PLATELET COUNT (test code = PLT) 327 K/mm3 150-450 N MEAN PLATELET VOLUME (test code = MPV) 9.3 fL 6.7-11.0 N VENOUS BLOOD [id number] 15:54:00* Test Item Value Reference Range Interpretation Comments VENOUS BLOOD GAS PH (test code = PHV) 7.40 7.30-7.40 N VENOUS BLOOD GAS PCO2 (test code = PCO2V) 22.8 mm Hg 39.0-51.0 LL Results called to and read back by lotus 15:53 - 03/31/2019; by garcia weaver VENOUS BLOOD GAS PO2 (test code = PO2V) 45.7 mm Hg 30.0-50.0 N VBG HCO3 (test code = HCO3V) 13.9 mmol/L 17.0-30.0 L VBG BASE EXCESS (test code = QUIQUE) -9.6 mmol/L -5.0-5.0 LL Results called to and read back by lotus 15:53 - 03/31/2019; by sijo rt VENOUS BLOOD GAS O2 SAT. (test code = O2SATV) 80 % 94-98 LL VENOUS BLOOD GAS FIO2 (test code = FIO2V) 36.0 PT. HGB (test code = PHGBVBG) 8.0 gram/dL 11.5-15.5 L VENOUS BLOOD GAS SITE (test code = SITEV) OT HEMATOCRIT (test code = HCT/VBG) 24 % 42-52 L HGB O2 SAT (test code = HBOSAT) 79.3 % 94.00-98.00 LL CARBOXYHEMOGLOBIN (test code = HOHGBT) 0.1 %totalHg 0.5-1.5 LL Results called to and read back by lotus 15:53 03/31/2019; by sijo rt METHEMOGLOBIN (test code = METHGB) 0.5 % 0.0-1.50 N - XR CHEST 1 [id number] 15:41:00 FAX: Ghulam Torres MD [place]: B St: REG Name: Ramirez TORIVIRA JASSO [facility] : [birth year] Age/S: 63/F [address] [facility] Unit #: [id number] Loc: [place] [address] Phys: Ghulam Torres MD Acct: [id number] Dis Date: Status: REG ER PHONE #: [phone] Exam Date: 03/31/2019 1540 FAX #: [phone] Reason: Shortness of Breath EXAMS: CPT CODE: [id number] XR CHEST 1 V 34127 REASON FOR EXAM: Shortness of Breath EXAM ORDER DATE: 03/31/2019 3:06 PM Ordering M.DTed: Ghulam Torres MD PROCEDURE: - XR CHEST 1 V COMPARISON: 11/24/2017 FINDINGS: Portable AP frontal view of the chest obtained at 3:31 PM shows clear lungs without evidence of consolidat ion. There is no evidence of effusion. The heart size is within normal shore its. Pulmonary vasculatures are unremarkable. IMPRESSION: Hyperinflated lungs suggestive of COPD with platelike atelectasis in the right midlung field Electronically Signed by Ian Russell on 03/31 at 1541 Reported and signed by: Jj Russell M.D. CC: Ghulam Torres MD [facility] hnologist: Milena De La Cruz RT(R); RT LAKSHMI(R) Trnazrd Date/T floyd/By: 03/31/2019 (1543) : By: Colleen Orig Print D/T: S: 9 (0015) PAGE [address] CHEST [id number] 21:24:00 [place] [address] Patient Name: VIRA MESSINA MR #: [id number] : 1955 Age/Sex: 63/F Req #: [id number] Adm Physician: Ordered by: EMILIA MCGUIRE MD Report #: [id number] Location: ER Room/Bed: Procedure: [id number] CT /CT CHEST WO Exam Date: 11/10/18 Exam Time: 2057 REPORT STATUS: Signed EXAM: CT Chest WITHOUT contrast INDICATION: dyspnea on exertion [id number] COMPARISON: Same day chest x-ray. TECHNIQUE: Chest was scanned util izing a multidetector helical scanner from the lung apex through the level of the adrenal glands without administration of IV contrast. Absence of intraveno us contrast decreases sensitivity for detection of lymphadenopathy and vascula r pathology. Coronal and sagittal reformations were obtained. Routine protocol was performed. IV CONTRAST: None COMPLICATIONS: None RADIAT ION DOSE: Total DLP: 387.6 mGy*cm Estimated effective dose: (DLP x 0.014 x size factor) mSv CTDIvol has been reviewed. It is below the shore its set by the Radiation Protocol Committee (RPC). FINDINGS: LINES/ TUBES: None. LUNGS AND AIRWAYS: Minimal upper lobe predominant centrilobular emphysematous changes. No focal consolidation. Small linear left basilar atelectasis/scarring. Posterior right base calcified granuloma. Airw ays are normal. PLEURA: The pleural spaces are clear. HEART AND MEDI ASTINUM: The thyroid gland is normal. Limited for evaluation of hilar regions without intravenous contrast. Prominent mediastinal lymph nodes, the largest measuring 1.2 cm in the precarinal region (series 2, image 51). No axillary ly mphadenopathy. The heart is normal in size.. There is no pericardial effusio n. Mild atherosclerotic calcification of the aortic arch and coronary arterie s. UPPER ABDOMEN: Unremarkable. BONES: Generalized demineralization. A ge indeterminate compression fractures of the L1, T11, T10 T8 vertebral bodies . Degenerative changes of thoracic spine. SOFT TISSUES: Unremarkable. IMPRESSION: Minimal upper lobe predominant centrilobular symphysis changes. No focal consolidation. Prominent nonspecific mediastinal lymph nodes. Age i ndeterminate compression deformities of vertebral bodies as described above. Signed by: Dr. Ania Buckner MD on 11/10/2018 9:31 PM Dictated By: TANNER BUCKNER MD 30 Shay scribed By: SONAM on 11/10/182130 COPY TO: EMILIA MCGUIRE MD CHEST SINGLE (PORTABLE)2018-11-10 19:50:00 [place] [address] Patient Name: VIRA MESSINA MR #: [id number] : 1955 Age/Sex: 63/F Req #: [id number] Adm Physician: Ordered by: CAMMIE MEJIA MD Report #: [id number] Location: ER Room/Bed: Procedure: [id number] DX /CHEST SINGLE (PORTABLE) Exam Date: Exam Time: REPORT STATUS: Signed EXAM: CHEST S MARLINE (PORTABLE), AP 1 view INDICATION: Chest pain. Trouble breathing. ALLAN RISON: AP view of the chest 06/09/2018 FINDINGS: LINES/TUBES: None L UNGS: Bibasilar atelectasis. Lungs are mildly hyperinflated. PLEURA: No eff usions or pneumothorax. HEART AND MEDIASTINUM: Normal size and contour. BONES AND SOFT TISSUES: No acute findings. IMPRESSION: No change. Biba silar atelectasis. Signed by: Dr. Penny Sol M.D. on 019 7:54 PM Dictated By: STARLA SOL MD, MD 53 Transcribed By: SONAM on 11/10/181953 COPY TO: CAMMIE MEJIA MD Sodium [id number] 07:00:00* Test Item Value Reference Range Interpretation Comments Sodium Level (test code = 2951-2) 139 136-[address] [facility] [facility] Zrkht9121-31-46 07:00:00* Test Item Value Reference Range Interpretation Comments Potassium Level (test code = 2823-3) 4.0 3.5-5.[address] [facility] HospitalChloride Deeod9874-10-30 07:00:00* Test Item Value Reference Range Interpretation Comments Chloride Level (test code = 2075-0) 103 98-[address] [facility] [facility] HospitalCarbon Dioxide Zhflp2509-69-12 07:00:00* Test Item Value Reference Range Interpretation Comments Carbon Dioxide Level (test code = 2028-9) 26 22-[address] [facility] HospitalAnion [id number] 07:00:00* Test Item Value Reference Range Interpretation Comments Anion Gap (test code = 35989-5) 14.0 8-[address] [facility] HospitalBlood Urea Nhkxflwj7445-22-72 07:00:00* Test Item Value Reference Range Interpretation Comments Blood Urea Nitrogen (test code = 3094-0) 12 7-[address] [facility] HospitalCreatinine2018-11-30 07:00:00* Test Item Value Reference Range Interpretation Comments Creatinine (test code = 2160-0) 0.61 0.57-1.[address] [facility] HospitalBUN/Creatinine Pcylc3325-55-28 07:00:00* Test Item Value Reference Range Interpretation Comments BUN/Creatinine Ratio (test code = 3097-3) 20 6- [facility] HospitalEstimat Glomerular Filtration Rate 2018-06-11 07:00:00* Test Item Value Reference Range Interpretation Comments Estimat Glomerular Filtration Rate (test code = 262790005) > 60 >60 Ranges were taken from the National Kidney Disease Education Program and the [place] pending sale to [employer] healthal [employer] literature.Reference ranges:60 or greater: Xniunn12-30 ( for 3 consecutive months): Chronic kidney disease 15 or less: Kidney failureCHI St[facility] HospitalGlucose Gwxmr2244-95-03 07:00:00* Test Item Value Reference Range Interpretation Comments Glucose Level (test code = NNL0982) 66 74-[address] [facility] HospitalCalcium Vojay8821-25-37 07:00:00* Test Item Value Reference Range Interpretation Comments Calcium Level (test code = 93066-1) 8.8 8.4-10.[address] [facility] HospitalMagnesium Dxyro1510-24-18 07:00:00* Test Item Value Reference Range Interpretation Comments Magnesium Level (test code = 54021-4) 2.2 1.3-2.1 [facility] Centerodium Qytpb3113-95-99 07:00:00* Test Item Value Reference Range Interpretation Comments Sodium Level (test code = 2951-2) 139 136-[address] [facility] [facility] HospitalPotassium Hetjt2944-35-44 07:00:00* Test Item Value Reference Range Interpretation Comments Potassium Level (test code = 2823-3) 4.0 3.5-5.[address] [facility] HospitalChloride Ldbrx0354-86-56 07:00:00* Test Item Value Reference Range Interpretation Comments Chloride Level (test code = 2075-0) 103 98-[address] [facility] HospitalCarbon Dioxide Lpuar7001-25-45 07:00:00* Test Item Value Reference Range Interpretation Comments Carbon Dioxide Level (test code = 2028-9) 26 22-[address] [facility] HospitalAnion Jmh0306-85-49 07:00:00* Test Item Value Reference Range Interpretation Comments Anion Gap (test code = 83210-6) 14.0 8-[address] [facility] HospitalBlood Urea Gkptcusj2339-33-70 07:00:00* Test Item Value Reference Range Interpretation Comments Blood Urea Nitrogen (test code = 3094-0) 12 7-[address] [facility] HospitalCreatinine2018-11-30 07:00:00* Test Item Value Reference Range Interpretation Comments Creatinine (test code = 2160-0) 0.61 0.57-1.[address] [facility] HospitalBUN/Creatinine Kamta7057-77-74 07:00:00* Test Item Value Reference Range Interpretation Comments BUN/Creatinine Ratio (test code = 3097-3) 20 6-[address] [facility] HospitalEstimat Glomerular Filtration Rate 2018-06-11 07:00:00* Test Item Value Reference Range Interpretation Comments Estimat Glomerular Filtration Rate (test code = 563387069) > 60 >60 Ranges were taken from the National Kidney Disease Education Program and the [place] pending sale to [facility] healthal [employer] Foundation literature.Reference ranges:60 or greater: Aqrzif32-33 ( for 3 consecutive months): Chronic kidney disease 15 or less: Kidney failureCHI St. [facility] HospitalGlucose Avrow2691-79-33 07:00:00* Test Item Value Reference Range Interpretation Comments Glucose Level (test code = DVU8807) 66 74-[address] [facility] HospitalCalcium Pdssc4427-39-96 07:00:00* Test Item Value Reference Range Interpretation Comments Calcium Level (test code = 80704-0) 8.8 8.4-10.[address] [facility] HospitalMagnesium Iazhi0545-05-22 07:00:00* Test Item Value Reference Range Interpretation Comments Magnesium Level (test code = 61546-4) 2.2 1.3-2.[address] [facility] HospitalWhite Blood Ieawy3135-67-28 06:57:00* Test Item Value Reference Range Interpretation Comments White Blood Count (test code = 6690-2) 6.16 4.8-10.[address] [facility] HospitalRed Blood Uaakr1636-63-63 06:57:00* Test Item Value Reference Range Interpretation Comments Red Blood Count (test code = 789-8) 3.12 3.6-5.[address] [facility] HospitalHemoglobin2018-11-30 06:57:00* Test Item Value Reference Range Interpretation Comments Hemoglobin (test code = 59973-5) 10.1 12.0-16.[address] [facility] HospitalHematocrit2018-11-30 06:57:00* Test Item Value Reference Range Interpretation Comments Hematocrit (test code = 4544-3) 31.5 34.2-44.[address] [facility] HospitalMean Corpuscular Tgccmq7922-81-63 06:57:00* Test Item Value Reference Range Interpretation Comments Mean Corpuscular Volume (test code = 787-2) 101.0 81-[address] [facility] HospitalMean Corpuscular Rynjllmyil0491-57-59 06:57:00* Test Item Value Reference Range Interpretation Comments Mean Corpuscular Hemoglobin (test code = 785-6) 32.4 28-32 [facility] Corpuscular Hemoglobin Concent 2018-06-11 06:57:00* Test Item Value Reference Range Interpretation Comments Mean Corpuscular Hemoglobin Concent (test code = 786-4) 32.1 31-[address] [facility] HospitalRed Cell Distribution Yyhez8559-89-07 06:57:00* Test Item Value Reference Range Interpretation Comments Red Cell Distribution Width (test code = 75458-1) 14.4 11.7 -14.[address] [facility] HospitalPlatelet Gefnn8728-78-46 06:57:00* Test Item Value Reference Range Interpretation Comments Platelet Count (test code = 777-3) 248 140-[address] HospitalNeutrophils (%) (Auto)2018-06-11 06:57:00 * Test Item Value Reference Range Interpretation Comments Neutrophils (%) (Auto) (test code = 78332-4) 66.4 38.7-80.[address] [facility] HospitalLymphocytes (%) (Auto)2018-06-11 06:57:00 * Test Item Value Reference Range Interpretation Comments Lymphocytes (%) (Auto) (test code = 736-9) 15.3 18.0-39.[address] [facility] HospitalMonocytes (%) (Auto)2018-06-11 06:57:00* Test Item Value Reference Range Interpretation Comments Monocytes (%) (Auto) (test code = 5905-5) 13.5 4.4-11.[address] [facility] HospitalEosinophils (%) (Auto)2018-06-11 06:57:00 * Test Item Value Reference Range Interpretation Comments Eosinophils (%) (Auto) (test code = 713-8) 4.2 0.0-6.[address] [facility] HospitalBasophils (%) (Auto)2018-06-11 06:57:00* Test Item Value Reference Range Interpretation Comments Basophils (%) (Auto) (test code = 706-2) 0.3 0.0-1.[address] [facility] HospitalIM GRANULOCYTES %2018-06-11 06:57:00* Test Item Value Reference Range Interpretation Comments IM GRANULOCYTES % (test code = IM GRANULOCYTES %) 0.3 0.0- 1.[address] [facility] [facility] HospitalNeutrophils # (Auto)2018-06-11 06:57:00* Test Item Value Reference Range Interpretation Comments Neutrophils # (Auto) (test code = 751-8) 4.1 2.1-6.[address] [facility] HospitalLymphocytes # (Auto)2018-06-11 06:57:00* Test Item Value Reference Range Interpretation Comments Lymphocytes # (Auto) (test code = 62578-3) 0.9 1.0-3.[address] [facility] HospitalMonocytes # (Auto)2018-06-11 06:57:00* Test Item Value Reference Range Interpretation Comments Monocytes # (Auto) (test code = 742-7) 0.8 0.2-0.[address] [facility] HospitalEosinophils # (Auto)2018-06-11 06:57:00* Test Item Value Reference Range Interpretation Comments Eosinophils # (Auto) (test code = 711-2) 0.3 0.0-0.[address] [facility] HospitalBasophils # (Auto)2018-06-11 06:57:00* Test Item Value Reference Range Interpretation Comments Basophils # (Auto) (test code = 704-7) 0.0 0.0-0.[address] [facility] HospitalAbsolute Immature Granulocyte (auto 2018-06-11 06:57:00* Test Item Value Reference Range Interpretation Comments Absolute Immature Granulocyte (auto (jasvir t code = Absolute Immature Granulocyte (auto) 0.02 0-0.[address] [facility] HospitalWhite Blood Zyhtm0734-51-47 06:57:00* Test Item Value Reference Range Interpretation Comments White Blood Count (test code = 6690-2) 6.16 4.8-10.[address] [facility] HospitalRed Blood Rneqn3056-72-14 06:57:00* Test Item Value Reference Range Interpretation Comments Red Blood Count (test code = 789-8) 3.12 3.6-5.[address] HospitalHemoglobin2018-11-30 06:57:00* Test Item Value Reference Range Interpretation Comments Hemoglobin (test code = 55012-0) 10.1 12.0-16.[address] [facility] HospitalHematocrit2018-11-30 06:57:00* Test Item Value Reference Range Interpretation Comments Hematocrit (test code = 4544-3) 31.5 34.2-44.[address] [facility] HospitalMean Corpuscular Hxmkbq8726-52-18 06:57:00* Test Item Value Reference Range Interpretation Comments Mean Corpuscular Volume (test code = 787-2) 101.0 81-[address] [facility] HospitalMean Corpuscular Ywmigsbhff7383-16-84 06:57:00* Test Item Value Reference Range Interpretation Comments Mean Corpuscular Hemoglobin (test code = 785-6) 32.4 28-[address] [facility] HospitalMean Corpuscular Hemoglobin Concent 2018-06-11 06:57:00* Test Item Value Reference Range Interpretation Comments Mean Corpuscular Hemoglobin Concent (test code = 786-4) 32.1 31-[address] [facility] HospitalRed Cell Distribution Rcnqs1807-31-77 06:57:00* Test Item Value Reference Range Interpretation Comments Red Cell Distribution Width (test code = 32829-5) 14.4 11.7 -14.[address] [facility] HospitalPlatelet Qernb9995-46-14 06:57:00* Test Item Value Reference Range Interpretation Comments Platelet Count (test code = 777-3) 248 140-[address] [facility] [facility] HospitalNeutrophils (%) (Auto)2018-06-11 06:57:00 * Test Item Value Reference Range Interpretation Comments Neutrophils (%) (Auto) (test code = 24805-7) 66.4 38.7-80.[address] [facility] HospitalLymphocytes (%) (Auto)2018-06-11 06:57:00 * Test Item Value Reference Range Interpretation Comments Lymphocytes (%) (Auto) (test code = 736-9) 15.3 18.0-39.[address] [facility] HospitalMonocytes (%) (Auto)2018-06-11 06:57:00* Test Item Value Reference Range Interpretation Comments Monocytes (%) (Auto) (test code = 5905-5) 13.5 4.4-11.[address] HospitalEosinophils (%) (Auto)2018-06-11 06:57:00 * Test Item Value Reference Range Interpretation Comments Eosinophils (%) (Auto) (test code = 713-8) 4.2 0.0-6.[address] [facility] HospitalBasophils (%) (Auto)2018-06-11 06:57:00* Test Item Value Reference Range Interpretation Comments Basophils (%) (Auto) (test code = 706-2) 0.3 0.0-1.[address] [facility] [facility] HospitalIM GRANULOCYTES %2018-06-11 06:57:00* Test Item Value Reference Range Interpretation Comments IM GRANULOCYTES % (test code = IM GRANULOCYTES %) 0.3 0.0- 1.[address] [facility] HospitalNeutrophils # (Auto)2018-06-11 06:57:00* Test Item Value Reference Range Interpretation Comments Neutrophils # (Auto) (test code = 751-8) 4.1 2.1-6.[address] [facility] HospitalLymphocytes # (Auto)2018-06-11 06:57:00* Test Item Value Reference Range Interpretation Comments Lymphocytes # (Auto) (test code = 55687-8) 0.9 1.0-3.[address] [facility] HospitalMonocytes # (Auto)2018-06-11 06:57:00* Test Item Value Reference Range Interpretation Comments Monocytes # (Auto) (test code = 742-7) 0.8 0.2-0.[address] [facility] HospitalEosinophils # (Auto)2018-06-11 06:57:00* Test Item Value Reference Range Interpretation Comments Eosinophils # (Auto) (test code = 711-2) 0.3 0.0-0.[address] [facility] HospitalBasophils # (Auto)2018-06-11 06:57:00* Test Item Value Reference Range Interpretation Comments Basophils # (Auto) (test code = 704-7) 0.0 0.0-0.[address] HospitalAbsolute Immature Granulocyte (auto 2018-06-11 06:57:00* Test Item Value Reference Range Interpretation Comments Absolute Immature Granulocyte (auto (jasvir t code = Absolute Immature Granulocyte (auto) 0.02 0-0.1 [facility]2018-06-11 06:49:00 [facility] [address] [place] [address] Patient Name: VIRA MESSINA MR #: [id number] : 1955 Age/Sex: 63/F Req #: [id number] Adm Physician: ALIE DUARTE MD Ordered by: Victoriano Hicks NP Report #: [id number] Location: MED/SURG3 Room/Bed: [facility] Procedure: [id number] DX /ABDOMEN-1VIEW (KUB) Exam Date: 06/11/18 Exam Time: 0530 REPORT STATUS: Signed EXAM: ABDOMEN-1VIEW (KUB), supine INDICATION: Small bowel obstruction COMPARISON: Abdominal x-ray June 10, 2018 FINDINGS: LINES/TUBES: None BOWEL PATTERN: Persistent dilated loops of centralized small bowel. Air is seen in the colon and rectum. SOFT TISSUES: No acute findings LUNG BASES: Not included BONES: No acute findings. IMPRESSION: Persistent small bow el obstruction. Signed by: Dr. Amelia Monique M.D. on 06/11 6:49 AM Dictated By: AMELIA MONIQUE MD 8 Transcribed By: SONAM on 06/11/18648 COPY TO: VICTORIANO HICKS NP Carcinoembryonic Oqufwnu8391-05-99 06:08:00 * Test Item Value Reference Range Interpretation Comments Carcinoembryonic Antigen (test code = 2039-6) 4.0 0.0-4.7 Radha ECLIA methodology Nonsmokers <3.9 Smokers <5.6Performed at: [address] [id number] Director: Jung Ramirez MD, Phone: [phone] St. [facility] Lakeside HospitalCarcinoembryonic Jkphuoq0068-34-05 06:08:00* Test Item Value Reference Range Interpretation Comments Carcinoembryonic Antigen (test code = 2039-6) 4.0 0.0-4.7 Radha ECLIA methodology Nonsmokers <3.9 Smokers <5.6Performed at: [address] [id number] Director: Jung Ramirez MD, Phone: [phone] St. [facility] Lakeside HospitalCHEST SINGLE (PORTABLE)2018-06-10 06:54:00 [place] [address] Patient Name: VIRA MESSINA MR #: [id number] : 1955 Age/Sex: 63/F Req #: [id number] Adm Physician: ALIE DUARTE MD Ordered by: SONNY MEDRANO INSULATION BLOWER Report #: [id number] Location: [facility] Room/Bed: [facility] Procedure: [id number] DX/ CHEST SINGLE (PORTABLE) Exam Date: 06/10/18 Exam Keegan e: 0530 REPORT STATUS: Signed EX AM: CHEST SINGLE (PORTABLE), AP 1 view INDICATION: Pneumonia, COPD COMPARISO N: AP view of the chest January 28, 2018 FINDINGS: LINES/TUBES: None CRUZ NGS: Bibasilar atelectasis. PLEURA: No effusions or pneumothorax. HEA RT AND MEDIASTINUM: Normal size and contour. BONES AND SOFT TISSUES: No acu te findings. IMPRESSION: Bibasilar atelectasis. Signed by: Dr Ted Monique M.D. on 06/10/2018 6:54 AM Dictated By: AMELIA Hernandez MD 3 Transcribed B y: COMTRAN on 06/10/18653 COPY TO: SONNY MEDRANO NP ABDOMEN- 1VIEW ([facility])2018-06-10 06:54:00 [place] [address] Patient Name: VIRA MESSINA MR #: [id number] : 1955 Age/Sex: 63/F Req #: [id number] Adm Physician: ALIE DUARTE MD Ordered by: SONNY MEDRANO INSULATION BLOWER Report #: [id number] Location: [facility] Room/Bed: [facility] Procedure: [id number] DX/ ABDOMEN-1VIEW ([facility]) Exam Date: 06/10/18 Exam Time: 0 530 REPORT STATUS: Signed EXAM: ABDOMEN-1VIEW (KUB), supine INDICATION: Small bowel obstruction COMPARISON: CT of the abdomen and pelvis June 09, 2018 FINDINGS: LINES/TUBES: No ne BOWEL PATTERN: Persistent dilated loops of small bowel. SOFT TISSUE S: No change. LUNG BASES: Not included BONES: No acute findings. IMPRESSION: Persistent small bowel obstruction. Signed by: Dr Ted Monique M.D. on 06/10/2018 6:55 AM Dictated By: AMELIA Hernandez MD 4 Transcribed B y: COMTRAN on 06/10/18654 COPY TO: SONNY MEDRANO NP Thyroid Stimulating Hormone (TSH)2018-06-10 06:14:00* Test Item Value Reference Range Interpretation Comments Thyroid Stimulating Hormone (TSH) (test code = 68106-0) 1.351 0.350-4[address] [address] [facility] HospitalThyroid Stimulating Hormone (TSH) 2018-06-10 06:14:00* Test Item Value Reference Range Interpretation Comments Thyroid Stimulating Hormone (TSH) (test code = 04924-2) 1.351 0.350-4.[address] [facility] HospitalPhosphorus Qlzsm8062-54-94 05:43:00* Test Item Value Reference Range Interpretation Comments Phosphorus Level (test code = CXS8099) 2.7 2.3-4.[address] [facility] HospitalTotal Wzqwlrfwk9719-31-68 05:43:00* Test Item Value Reference Range Interpretation Comments Total Bilirubin (test code = 1975-2) 0.7 0.2-1.[address] [facility] HospitalAspartate Amino Transf (AST/SGOT) 2018-06-10 05:43:00* Test Item Value Reference Range Interpretation Comments Aspartate Amino Transf (AST/SGOT) (test code = Aspartate Amino Transf (AST/SGOT)) 21 5-[address] [facility] HospitalAlanine Aminotransferase (ALT/SGPT) 2018-06-10 05:43:00* Test Item Value Reference Range Interpretation Comments Alanine Aminotransferase (ALT/SGPT) (test code = 1742-6) < 6 0-[address] [facility] HospitalTotal Vehwtdh1181-99-87 05:43:00* Test Item Value Reference Range Interpretation Comments Total Protein (test code = 2885-2) 6.4 6.5-8.[address] [facility] HospitalAlbumin2018-11-29 05:43:00* Test Item Value Reference Range Interpretation Comments Albumin (test code = 1751-7) 2.9 3.5-5.[address] [facility] HospitalGlobulin2018-11-29 05:43:00* Test Item Value Reference Range Interpretation Comments Globulin (test code = 45579-2) 3.5 2.3-3.[address] [facility] HospitalAlbumin/Globulin Fksga8214-01-38 05:43:00 * Test Item Value Reference Range Interpretation Comments Albumin/Globulin Ratio (test code = 1759-0) 0.8 0.8-2.[address] [facility] HospitalAlkaline Ibkkkyaywhf1105-94-23 05:43:00* Test Item Value Reference Range Interpretation Comments Alkaline Phosphatase (test code = 6768-6) 65 40-[address] [facility] HospitalTriglycerides Kwhsq0967-45-46 05:43:00* Test Item Value Reference Range Interpretation Comments Triglycerides Level (test code = 2571-8) 99 0-[address] [facility] HospitalCholesterol Mlsbg9455-67-09 05:43:00* Test Item Value Reference Range Interpretation Comments Cholesterol Level (test code = 2093-3) 134 0-199 Less than 200 mg/dL Low Yrxk398 - 239 mg/dL Borderline Znex203 m g/dl and greater High Risk [facility] HospitalLDL Mltyzvlsatb4807-67-51 05:43:00* Test Item Value Reference Range Interpretation Comments LDL Cholesterol (test code = 2089-1) 39 60-[address] [facility] HospitalHDL Ywleeccxzkk3128-84-32 05:43:00* Test Item Value Reference Range Interpretation Comments HDL Cholesterol (test code = 2085-9) 75 40-[address] [facility] HospitalCholesterol/HDL Ymnao2042-92-74 05:43:00 * Test Item Value Reference Range Interpretation Comments Cholesterol/HDL Ratio (test code = 9830-1) 1.8 3.0-3.[address] HospitalPhosphorus Hxkiz3220-85-63 05:43:00* Test Item Value Reference Range Interpretation Comments Phosphorus Level (test code = QMV1281) 2.7 2.3-4.[address] [facility] HospitalTotal Jawjjqdqw7455-06-88 05:43:00* Test Item Value Reference Range Interpretation Comments Total Bilirubin (test code = 1975-2) 0.7 0.2-1.[address] [facility] HospitalAspartate Amino Transf (AST/SGOT) 2018-06-10 05:43:00* Test Item Value Reference Range Interpretation Comments Aspartate Amino Transf (AST/SGOT) (test code = Aspartate Amino Transf (AST/SGOT)) 21 5-[address] [facility] HospitalAlanine Aminotransferase (ALT/SGPT) 2018-06-10 05:43:00* Test Item Value Reference Range Interpretation Comments Alanine Aminotransferase (ALT/SGPT) (test code = 1742-6) < 6 0-[address] [facility] HospitalTotal Rvtelre0313-72-71 05:43:00* Test Item Value Reference Range Interpretation Comments Total Protein (test code = 2885-2) 6.4 6.5-8.[address] HospitalAlbumin2018-11-29 05:43:00* Test Item Value Reference Range Interpretation Comments Albumin (test code = 1751-7) 2.9 3.5-5.[address] HospitalGlobulin2018-11-29 05:43:00* Test Item Value Reference Range Interpretation Comments Globulin (test code = 46849-4) 3.5 2.3-3.[address] [address] HospitalAlbumin/Globulin Gcuhd5662-37-40 05:43:00 * Test Item Value Reference Range Interpretation Comments Albumin/Globulin Ratio (test code = 1759-0) 0.8 0.8-2.[address] HospitalAlkaline Sgxpkkfoqro8250-85-58 05:43:00* Test Item Value Reference Range Interpretation Comments Alkaline Phosphatase (test code = 6768-6) 65 40-[address] [facility] HospitalTriglycerides Rrmdn6917-73-52 05:43:00* Test Item Value Reference Range Interpretation Comments Triglycerides Level (test code = 2571-8) 99 0-[address] [address] [facility] HospitalCholesterol Ziqwq8794-17-77 05:43:00* Test Item Value Reference Range Interpretation Comments Cholesterol Level (test code = 2093-3) 134 0-199 Less than 200 mg/dL Low Snia246 - 239 mg/dL Borderline Kbrh022 m g/dl and greater High Risk [facility] HospitalLDL Yqiwthsdgbr0533-04-40 05:43:00* Test Item Value Reference Range Interpretation Comments LDL Cholesterol (test code = 2089-1) 39 60-[address] [facility] HospitalHDL Sthglmjskty2257-61-59 05:43:00* Test Item Value Reference Range Interpretation Comments HDL Cholesterol (test code = 2085-9) 75 40-[address] [facility] HospitalCholesterol/HDL Wikxo9099-82-40 05:43:00 * Test Item Value Reference Range Interpretation Comments Cholesterol/HDL Ratio (test code = 9830-1) 1.8 3.0-3.[address] HospitalHemoglobin A1c Lpggidw0374-23-87 05:36:00 * Test Item Value Reference Range Interpretation Comments Hemoglobin A1c Percent (test code = Hemoglobin A1c Percent) 4.5 4.0-7.[address] HospitalHemoglobin A1c Dvizbgu6031-16-33 05:36:00 * Test Item Value Reference Range Interpretation Comments Hemoglobin A1c Percent (test code = Hemoglobin A1c Percent) 4.5 4.0-7.0 [facility]2018-11-29 05:26:00* Test Item Value Reference Range Interpretation Comments Ammonia (test code = 16701-6) 57 31-123 [facility]2018-11-29 05:26:00* Test Item Value Reference Range Interpretation Comments Ammonia (test code = 42067-2) 57 31-[address] [facility] HospitalCT ABDOMEN/PELVIS IW4616-92-83 18:36:00 [place] [address] Patient Name: VIRA MESSINA MR #: [id number] : 1955 Age/Sex: 63/F Req #: [id number] Adm Physician: Ordered by: URBANO CALABRESE INSULATION BLOWER Report #: [id number] Location: ER Room/Bed: Procedure: [id number] C T/CT ABDOMEN/PELVIS WO Exam Date: 06/09/18 Exam Time : 1725 REPORT STATUS: Signed EXA M: CT Abdomen and Pelvis WITHOUT contrast INDICATION: rule out obst ruction. oral contract only. Allergy to IV con [id number] COMPARISON : None. TECHNIQUE: Abdomen and pelvis were scanned utilizing a multidetector h elical scanner from the lung base to the pubic symphysis without administratio n of IV contrast. Absence of intravenous contrast decreases sensitivity for de tection of focal lesions and vascular pathology. Coronal and sagittal reformat ions were obtained. Routine protocol was performed. IV CONTRAST: None ORAL CONTRAST: Patient refused oral contrast. COMPLICATI ONS: None RADIATION DOSE: Total DLP: 238.61 mGy*cm Estimated effective dose: (DLP x 0.015 x size factor) mSv CTDIvol has been reviewed . It is below the limits set by the Radiation Protocol Committee (RPC). F INDINGS: LINES and TUBES: None. LOWER THORAX: Left basilar patchy opa cities. Right base calcified granuloma. There are is also linear atelectasis/s carring of the right base. HEPATOBILIARY: Unenhanced liver is unremark able. No biliary ductal dilation. GALLBLADDER: Not distended. No radio-o paque stones or sludge. No wall thickening. SPLEEN: No splenomegaly. PANCREAS: No focal masses or ductal dilatation. ADRENALS: No adrenal n odules KIDNEYS/URETERS: No hydronephrosis. Limited for evaluation of r enal parenchyma without intravenous contrast. No stones. GI TRACT: Multi ple distended air and fluid-filled small bowel loops throughout the abdomen al marlin with less distended distal ileal loops. PELVIC ORGANS/BLADDER : Unremarkable. LYMPH NODES: No lymphadenopathy. Few prominent retroperiton eal lymph nodes are seen. VESSELS: Limited evaluation without intravenous contrast and with the presence of streak artifacts. PERITONEUM / RETROPE RITONEUM: No free air or fluid. BONES: Generalized demineralization limits evaluation. There is posterior fusion of L4-S1 with streak artifacts, limiting evaluation. Multiple compression deformities of the lumbar and visualized tho racic spine. Evidence of L3 vertebroplasty. SOFT TISSUES: Unremarkable. IMPRESSION: Very limited study without intravenous contrast a nd due to streak artifacts from spinal fusion hardware. 1. Left basilar pat chucky opacities, concerning for pneumonia. 2. Dilated air and fluid filled smal l bowel loops throughout the abdomen along with less dilated distal ileal loop s concerning for at least partial small bowel obstruction. 3. Severe osseou s demineralization along with multilevel compression deformities of the thorac olumbar spine vertebral bodies. Signed by: Dr. Ania Buckner MD on 018 6:48 PM Dictated By: ANIA BUCKNER MD 47 Transcribed By: SONAM on 06/09/181847 CO PY TO: URBANO CALABRESE NP Lactic Acid Vmgnp6667-06-25 15:28:00* Test Item Value Reference Range Interpretation Comments Lactic Acid Level (test code = Lactic Acid Level) 9.9 4.5- 19.[address] [facility] HospitalLactic Acid Hhajq6772-82-27 15:28:00* Test Item Value Reference Range Interpretation Comments Lactic Acid Level (test code = Lactic Acid Level) 9.9 4.5- 19.[address] [facility] HospitalUrine WFW4209-96-20 15:14:00* Test Item Value Reference Range Interpretation Comments Urine WBC (test code = 5821-4) 0-5 0-[address] [facility] [address] [facility] HospitalUrine [id number] 15:14:00* Test Item Value Reference Range Interpretation Comments Urine RBC (test code = 27628-9) 0-5 0-[address] [facility] [address] [facility] HospitalUrine Irigmuml7439-01-14 15:14:00* Test Item Value Reference Range Interpretation Comments Urine Bacteria (test code = 48716-2) FEW NONE [facility] HospitalUrine Epithelial Sawgg7375-15-86 15:14:00 * Test Item Value Reference Range Interpretation Comments Urine Epithelial Cells (test code = 49659-6) FEW NONE [facility] HospitalUrine Amorphous Rszybmbt6605-60-60 15:14:00* Test Item Value Reference Range Interpretation Comments Urine Amorphous Sediment (test code = 8246-1) MODERATE FEW H [facility] Hyaline Thxsk0541-41-01 15:14:00* Test Item Value Reference Range Interpretation Comments Urine Hyaline Casts (test code = 62417-4) 2-5 0-[address] [facility] HospitalUrine MST4229-17-89 15:14:00* Test Item Value Reference Range Interpretation Comments Urine WBC (test code = 5821-4) 0-5 0-[address] [facility] [facility] [facility] HospitalU[facility] LCN1060-45-39 15:14:00* Test Item Value Reference Range Interpretation Comments Urine RBC (test code = 78120-3) 0-5 0-5 [facility] Vxfgvrob6252-54-68 15:14:00* Test Item Value Reference Range Interpretation Comments Urine Bacteria (test code = 55393-9) FEW NONE [facility] Epithelial Kyqbe7444-28-34 15:14:00 * Test Item Value Reference Range Interpretation Comments Urine Epithelial Cells (test code = 13049-0) FEW NONE [facility] Amorphous Tjrylagv7270-74-99 15:14:00* Test Item Value Reference Range Interpretation Comments Urine Amorphous Sediment (test code = 8246-1) MODERATE FEW H [facility] Hyaline Yovnp0439-17-38 15:14:00* Test Item Value Reference Range Interpretation Comments Urine Hyaline Casts (test code = 04333-8) 2-5 0-[address] [facility] HospitalProthrombin Ikvb6622-24-95 15:09:00* Test Item Value Reference Range Interpretation Comments Prothrombin Time (test code = 5902-2) 11.1 11.9-14.[address] [facility] HospitalProthromb Time International Ratio 2018-06-09 15:09:00* Test Item Value Reference Range Interpretation Comments Prothromb Time International Ratio (test code = 6301-6) 0.74 Oral Anticoagulant Therapy INR Values:1. Low Intensity Therapy 1.5 - 2.02 . Moderate Intensity Therapy 2.0 - 3.03. High Intensity Therapy(1) 2.5 - 3. 54. High Intensity Therapy(2) 3.0 - 4.05. Panic Value INR > 5.[address] [facility] HospitalActivated Partial Thromboplast Time 2018-06-09 15:09:00* Test Item Value Reference Range Interpretation Comments Activated Partial Thromboplast Time (test code = 24258-2) 30.3 23.8-35.[address] [facility] HospitalAmylase Lfgjq6204-03-05 15:09:00* Test Item Value Reference Range Interpretation Comments Amylase Level (test code = 1798-8) 45 25-[address] HospitalLipase2018-11-28 15:09:00* Test Item Value Reference Range Interpretation Comments Lipase (test code = 3040-3) [facility] HospitalProthrombin Vhnp9410-06-57 15:09:00* Test Item Value Reference Range Interpretation Comments Prothrombin Time (test code = 5902-2) 11.1 11.9-14.[address] HospitalProthromb Time International Ratio 2018-06-09 15:09:00* Test Item Value Reference Range Interpretation Comments Prothromb Time International Ratio (test code = 6301-6) 0.74 Oral Anticoagulant Therapy INR Values:1. Low Intensity Therapy 1.5 - 2.02 . Moderate Intensity Therapy 2.0 - 3.03. High Intensity Therapy(1) 2.5 - 3. 54. High Intensity Therapy(2) 3.0 - 4.05. Panic Value INR > 5.[address] [facility] HospitalActivated Partial Thromboplast Time 2018-06-09 15:09:00* Test Item Value Reference Range Interpretation Comments Activated Partial Thromboplast Time (test code = 56938-4) 30.3 23.8-35.[address] [facility] HospitalAmylase Matoh2572-33-03 15:09:00* Test Item Value Reference Range Interpretation Comments Amylase Level (test code = 1798-8) 45 25-[address] [facility] HospitalLipase2018-11-28 15:09:00* Test Item Value Reference Range Interpretation Comments Lipase (test code = 3040-3) [address] [facility] HospitalUrine Pimac7029-55-78 15:03:00* Test Item Value Reference Range Interpretation Comments Urine Color (test code = 5778-6) STRAW YELLOW [facility] HospitalUrine Ezodzxw0154-31-98 15:03:00* Test Item Value Reference Range Interpretation Comments Urine Clarity (test code = 97484-4) SL CLOUDY CLEAR [facility] Specific Nwqpclv4899-15-63 15:03:00 * Test Item Value Reference Range Interpretation Comments Urine Specific [place] (test code = 5811-5) 1.025 1.010-1.[address] [facility] HospitalUrine zL5441-73-47 15:03:00* Test Item Value Reference Range Interpretation Comments Urine pH (test code = 85808-1) 5 5-7 [facility] Leukocyte Gfqyyrsq8539-59-53 15:03:00* Test Item Value Reference Range Interpretation Comments Urine Leukocyte Esterase (test code = 5799-2) NEGATIVE NEGATIVE [facility] Oxdzyzt8762-67-71 15:03:00* Test Item Value Reference Range Interpretation Comments Urine Nitrite (test code = 77629-6) NEGATIVE NEGATIVE [facility] Ujlrmhc7866-88-41 15:03:00* Test Item Value Reference Range Interpretation Comments Urine Protein (test code = 5804-0) NEGATIVE NEGATIVE [facility] Glucose (UA)2018-06-09 15:03:00* Test Item Value Reference Range Interpretation Comments Urine Glucose (UA) (test code = 2349-9) NEGATIVE NEGATIVE [facility] Bfnkxwd8339-75-18 15:03:00* Test Item Value Reference Range Interpretation Comments Urine Ketones (test code = 12382-4) NEGATIVE NEGATIVE [facility] Zhunzbmbwcaw3794-15-89 15:03:00* Test Item Value Reference Range Interpretation Comments Urine Urobilinogen (test code = 55961-5) 0.2 0.2-[address] [facility] [facility] Qmplrzqjz2276-66-76 15:03:00* Test Item Value Reference Range Interpretation Comments Urine Bilirubin (test code = 1978-6) NEGATIVE NEGATIVE [facility] Nugiy9639-17-78 15:03:00* Test Item Value Reference Range Interpretation Comments Urine Blood (test code = 39542-9) 1+ NEGATIVE H [facility] Crbc1436-64-50 15:03:00* Test Item Value Reference Range Interpretation Comments Urine Test (test code = 2106-3) NEGATIVE NEGATIVE [facility] Pvzlv6293-74-51 15:03:00* Test Item Value Reference Range Interpretation Comments Urine Color (test code = 5778-6) STRAW YELLOW [facility] Xgirzxe5344-73-61 15:03:00* Test Item Value Reference Range Interpretation Comments Urine Clarity (test code = 28186-4) SL CLOUDY CLEAR [facility] Specific Qcbxeyw1550-88-93 15:03:00 * Test Item Value Reference Range Interpretation Comments Urine Specific [place] (test code = 5811-5) 1.025 1.010-1.[address] [facility] aE2151-79-66 15:03:00* Test Item Value Reference Range Interpretation Comments Urine pH (test code = 49160-8) 5 5-[address] [facility] Leukocyte Iovjoqkx7668-15-32 15:03:00* Test Item Value Reference Range Interpretation Comments Urine Leukocyte Esterase (test code = 5799-2) NEGATIVE NEGATIVE [facility] Rdfohmy2477-29-04 15:03:00* Test Item Value Reference Range Interpretation Comments Urine Nitrite (test code = 08669-4) NEGATIVE NEGATIVE [facility] Eoqqajn3488-59-26 15:03:00* Test Item Value Reference Range Interpretation Comments Urine Protein (test code = 5804-0) NEGATIVE NEGATIVE [facility] Glucose (UA)2018-06-09 15:03:00* Test Item Value Reference Range Interpretation Comments Urine Glucose (UA) (test code = 2349-9) NEGATIVE NEGATIVE [facility] Vqlsjep8801-79-09 15:03:00* Test Item Value Reference Range Interpretation Comments Urine Ketones (test code = 14551-8) NEGATIVE NEGATIVE [facility] Zehddpjiuaaz6996-88-07 15:03:00* Test Item Value Reference Range Interpretation Comments Urine Urobilinogen (test code = 60324-8) 0.2 0.2-[address] [facility] Tfokvvmzp1135-42-39 15:03:00* Test Item Value Reference Range Interpretation Comments Urine Bilirubin (test code = 1978-6) NEGATIVE NEGATIVE [facility] Pcjvx5797-17-54 15:03:00* Test Item Value Reference Range Interpretation Comments Urine Blood (test code = 01761-4) 1+ NEGATIVE H [facility] HospitalU[facility] Vqdq8352-81-33 15:03:00* Test Item Value Reference Range Interpretation Comments Urine Test (test code = 2106-3) NEGATIVE NEGATIVE [facility] HospitalCHEST SINGLE (PORTABLE)2018-01-28 17:17:00 [place] [address] Patient Name: VIRA MESSINA MR #: [id number] : 1955 Age/Sex: 62/F Req #: [id number] Adm Physician: Ordered by: FIORDALIZA NICHOLE MD Report #: [id number] Location: ER Room/Bed: Procedure: [id number] DX/CHEST SINGLE (PORTABLE) Exam Date: 01/28/18 Exam Time: 1640 REPORT STA TUS: Signed PROCEDURE: A single AP view of the chest. COMPARISON: Non e. INDICATIONS: COUGH, SHORTNESS OF BREATH FINDINGS: Exam limi landen by patient rotation. Lines/tubes: None. Lungs: The lungs are well inflated and clear. There is no evidence of pneumonia or pulmonary edema. Pleura: There is no pleural effusion or pneumothorax. Heart and medias tinum: Cardiac silhouette is unremarkable. Pulmonary vasculature is grossly n ormal. Bones: No acute bony abnormality. Generalized osteopenia. IMPRES CHELSIE: 1. No acute cardiopulmonary abnormalities. Trevor sheth M.D. Dictated by: Trevor Whitney M.D. on 01/28/2018 at 17:17 Electronically approved by: Trevor Whitney M.D. on 01/28/2018 at 17:17 Dictated By: TREVOR WHITNEY MD 16 Transcribed By: KRISTEN on 01/28/181716 COPY T O: FIORDALIZA NICHOLE MD SP LUMBAR AP LATERAL 2-3VWS [place] [address] Patient Name: VIRA MESSINA MR #: [id number] : 1955 Age/Sex: 62/F Req #: [id number] Adm Physician: Ordered by: NATTY TEE MD Report #: [id number] Location: ER Room/Bed: Procedure: [id number] DX/SP LUMBAR AP LATERAL 2-3VW S Exam Date: 07/03/17 Exam Time: 2348 REPORT S TATUS: Signed EXAM: lumbar spine, 3 views, AP, lateral and coned lateral view DATE: 07/02/2017 11:50 PM Time stamp on exam: 2348 hours INDICATION: Lower back pain after fall COMPARISON: None FINDINGS: There are 5 lumbar-type vertebral bodies. Posterior surgical fusion and laminectomies L4-S1. Likely chronic compression fractures of L4 and L5. Age indeterminate mild compression of the superior endplate of L3. Age indeterminate central compression fracture of L1 with greater than 75% loss of vertebral body height centrally. Additio nal age-indeterminate compression fractures with approximately 25% loss of kae tral vertebral body height of T10 and T11. Diffuse bone demineralization. Alig nment is within normal limits. Partially visualized neuro stimulator wires. IMPRESSION: Age-indeterminate compression fractures of T10, T11, L1 and L4 with the greatest loss of height at L1. Surgical changes of the lower lum bar spine L4-S1 with chronic appearing compression fractures. Signed by: Dr. Amelia Monique M.D. on 07/03/2017 12:34 AM Dictated By: AMELIA DEE MD Transcribe d By: SONAM on 07/03/1733 COPY TO: NATTY TEE MD
[2019-12-18] MEDS ORDERED: METHYLPREDNISOLONE SOD SUCC 125 MG/2ML VIAL IM STA (15:55)
--- NOTE | 2019-12-18 15:57 | NUR ---
pt refusing lab draw stating she does not want to be sticked and can't take it md notified pt states she just wants a breathing treatment then go home
[2019-12-18] MEDS ORDERED: ALBUTEROL/IPRATROPIUM 3 ML NEB NEB ONE ×2 (16:00→18:30)
[2019-12-18] MEDS ORDERED: ALBUTEROL/IPRATROPIUM 3 ML NEB ONE (16:03)
[2019-12-18] MEDS ORDERED: METHYLPREDNISOLONE SOD SUCC 125 MG/2ML VIAL IV ONE (16:30)
[2019-12-18 16:46] LABS: BASOPHILS % 0.6 % (0.0-1.0); EOSINOPHILS # (AUTO) 0.1 (0.0-0.4); EOSINOPHILS % 1.6 % (0.0-6.0); HEMOGLOBIN 11.8 g/dL (12.0-16.0); LYMPHOCYTES # (AUTO) 2.9 (1.0-3.2); LYMPHOCYTES % 44.5 % (18.0-39.1); MEAN CORPUSCULAR HEMOGLOBIN 28.6 pg (28-32); MEAN CORPUSCULAR HGB CONC 31.9 g/dL (31-35); MEAN CORPUSCULAR VOLUME 89.8 fL (81-99); MONOCYTES # (AUTO) 0.7 (0.2-0.8); MONOCYTES % 11.4 % (4.4-11.3); NEUTROPHILS # (AUTO) 2.7 (2.1-6.9); NEUTROPHILS % 41.7 % (38.7-80.0); PLATELET COUNT 291 x10e3/uL (140-360); RED BLOOD COUNT 4.12 x10e6/uL (3.6-5.1); RED CELL DISTRIBUTION WIDTH 14.5 % (11.7-14.4)
[2019-12-18 17:00] LABS: ALBUMIN 3.6 g/dL (3.5-5.0); ALKALINE PHOSPHATASE 88 IU/L (40-150); ANION GAP 11.3 mmol/L (8-16); BLOOD UREA NITROGEN 7 mg/dL (7-26); BUN/CREATININE RATIO 10 (6-25); CALCIUM 9.2 mg/dL (8.4-10.2); CARBON DIOXIDE 25 mmol/L (22-29); CHLORIDE 105 mmol/L (98-107); CREATINE KINASE 46 IU/L (29-168); CREATININE, SERUM 0.69 mg/dL (0.57-1.11); EST GLOMERULAR FILTRATION RATE > 60 ML/MIN (60-); GLUCOSE 100 mg/dL (74-118); POTASSIUM 4.3 mmol/L (3.5-5.1); SODIUM 137 mmol/L (136-145)
[2019-12-18 17:07] LABS: ALANINE AMINOTRANSFERASE < 6 IU/L (0-55)
[2019-12-18] MEDS ORDERED: HYDROCODONE/APAP 10MG-325MG TAB PO ONE (17:15)
--- NOTE | 2019-12-18 17:30 | Diagnostic Imaging Report ---
EXAMINATION: CHEST SINGLE (PORTABLE) INDICATION: SOB WHEEZING, COPD COMPARISON: Chest radiograph 11/10/[address] chest 11/10/2018. FINDINGS: TUBES and LINES: None. LUNGS: Emphysematous lungs with mild hyperinflation. Mild bronchial wall thickening. Mild patchy right basilar opacity. No evidence of lobar consolidation. PLEURA: No pleural effusion or pneumothorax. HEART AND MEDIASTINUM: The cardiomediastinal silhouette is unremarkable. BONES AND SOFT TISSUES: No acute osseous abnormality. Partially seen lumbar spine fixation hardware. UPPER ABDOMEN: No free air under the diaphragm. IMPRESSION: Emphysematous lungs with mild patchy right basilar opacity, likely atelectasis, although infection is possible in the appropriate clinical setting. Mild bronchial wall thickening, suggestive of bronchitis in the setting of cough. Signed by: Dr. Fredi Prater MD on 12/18/2019 5:27 PM
[2019-12-18 17:34] LABS: INR 0.79; PROTHROMBIN TIME 11.4 seconds (11.9-14.5)
[2019-12-18 17:35] LABS: PARTIAL THROMBOPLASTIN TIME 32.4 seconds (23.8-35.5)
--- NOTE | 2019-12-18 18:45 | Emergency Department Note ---
History of Present Illnes History of Present Illness Chief Complaint: Respiratory History of Present Illness This is a 64 year old female . 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 Arrival Mode: [facility] Treatment STONE FINISHER: O2 Side Sawyer Required: No Onset (how long ago): week(s) (1) Location: LUNGS Quality: SOB, WHEEZING Radiation: non-radiation Severity: severe Onset quality: gradual Timing of current episode: intermittent Progression: waxing and waning Chronicity: recurrent Context: recent illness Relieving factors: none Exacerbating factors: none Associated symptoms: cough (MILD NON-PROD), shortness of breath, other (WHEEZING) Treatments prior to arrival: none, other (PT SAYS HER NEBULIZER IS BROKEN AND SHE IS OUT OF HER ALBUTEROL MDI) Past Medical/Family History Physician Review I have reviewed the patient's past medical and family history. Any updates have been documented here. Past Medical History Recent Fever: No Clinical Suspicion of Infectio: No New/Unexplained Change in Ment: No Past Medical History: COPD, CVA Other Medical History: "leaky heart valve" Christian to face & hands CVAx2 Back hardware LLE franck d/t fx Past Surgical History: Hysterectomy, T&A Other Surgery: left hip surgery Social History Smoking Cessation: Current every day smoker Counseling Performed: No Alcohol Use: None Any Illegal Drug Use: No TB Exposure/Symptoms: No Physically hurt or threatened: No Other Last Tetanus: UTD Any Pre-Existing Lines (PICC,: No Is patient up to date on immun: No Last Flu: ood Last Pneumovax: ood Review of Systems Review of Systems Constitutional: no symptoms EENTM: no symptoms Cardiovascular: no symptoms; chest pain Respiratory: as per HPI, cough, dyspnea, wheezing Gastrointestinal: no symptoms Genitourinary: no symptoms Musculoskeletal: no symptoms Neurological: no symptoms Psychological: no symptoms Endocrine: no symptoms Hematological/Lymphatic: no symptoms Review of other systems All other systems reviewed and negative. Physical Exam Related Data Allergies: Coded Allergies: Iodinated Contrast Media (Verified Allergy, Severe, ANAPHYLAXIS, 11/10/18) morphine (Verified Allergy, Unknown, itch, 12/18/19) Triage Vital Signs Vital Signs Date Time Temp Pulse Resp B/P (MAP) Pulse Ox O2 Delivery O2 Flow Rate FiO2 12/18/19 15:45 98.7 96 23 118/79 100 Vital signs reviewed: Yes Physical Exam CONSTITUTIONAL Constitutional: well-developed, well-nourished HENT HENT: normocephalic, atraumatic, oropharynx clear/moist, nose normal HENT L/R: left ext ear normal, right ext ear normal EYES Eyes: PERRL, conjunctivae normal NECK Neck: ROM normal PULMONARY Pulmonary: other (DIFFUSE MOD WHEEZING, DIFFUSE MOD DECREASED BREATH SOUNDS THROUGHOUT); respiratory distress CARDIOVASCULAR Cardiovascular: regular rhythm, heart sounds normal, capillary refill normal, normal rate, murmur (1/6 SYS MURMUR) GASTROINTESTINAL Abdominal: soft, nontender, bowel sounds normal GENITOURINARY Genitourinary: exam deferred SKIN Skin: warm, dry MUSCULOSKELETAL Musculoskeletal: ROM normal NEUROLOGICAL Neurological: alert, oriented x 3, no gross motor or sensory deficits PSYCHOLOGICAL Psychological: mood/affect normal, judgement normal Results Laboratory Result Diagram: 12/18/19 1609 12/18/19 1609 Laboratory Laboratory Tests Test 12/18/19 16:09 White Blood Count 6.42 x10e3/uL (4.8-10.8) Red Blood Count 4.12 x10e6/uL (3.6-5.1) Hemoglobin 11.8 g/dL (12.0-16.0) Hematocrit 37.0 % (34.2-44.1) Mean Corpuscular Volume 89.8 fL (81-99) Mean Corpuscular Hemoglobin 28.6 pg (28-32) Mean Corpuscular Hemoglobin Concent 31.9 g/dL (31-35) Red Cell Distribution Width 14.5 % (11.7-14.4) Platelet Count 291 x10e3/uL (140-360) Neutrophils (%) (Auto) 41.7 % (38.7-80.0) Lymphocytes (%) (Auto) 44.5 % (18.0-39.1) Monocytes (%) (Auto) 11.4 % (4.4-11.3) Eosinophils (%) (Auto) 1.6 % (0.0-6.0) Basophils (%) (Auto) 0.6 % (0.0-1.0) Neutrophils # (Auto) 2.7 (2.1-6.9) Lymphocytes # (Auto) 2.9 (1.0-3.2) Monocytes # (Auto) 0.7 (0.2-0.8) Eosinophils # (Auto) 0.1 (0.0-0.4) Basophils # (Auto) 0.0 (0.0-0.1) Absolute Immature Granulocyte (auto 0.01 x10e3/uL (0-0.1) Prothrombin Time 11.4 seconds (11.9-14.5) Prothromb Time International Ratio 0.79 Activated Partial Thromboplast Time 32.4 seconds (23.8-35.5) Sodium Level 137 mmol/L (136-145) Potassium Level 4.3 mmol/L (3.5-5.1) Chloride Level 105 mmol/L (98-107) Carbon Dioxide Level 25 mmol/L (22-29) Anion Gap 11.3 mmol/L (8-16) Blood Urea Nitrogen 7 mg/dL (7-26) Creatinine 0.69 mg/dL (0.57-1.11) Estimat Glomerular Filtration Rate > 60 ML/MIN (60-) BUN/Creatinine Ratio 10 (6-25) Glucose Level 100 mg/dL (74-118) Calcium Level 9.2 mg/dL (8.4-10.2) Total Bilirubin 0.2 mg/dL (0.2-1.2) Aspartate Amino Transf (AST/SGOT) 16 IU/L (5-34) Alanine Aminotransferase (ALT/SGPT) < 6 IU/L (0-55) Alkaline Phosphatase 88 IU/L (40-150) Creatine Kinase 46 IU/L (29-168) Creatine Kinase MB 0.70 ng/mL (0-5.0) Troponin I < 0.001 ng/mL (0-0.300) B-Type Natriuretic Peptide < 10.0 pg/mL (0-100) Total Protein 7.1 g/dL (6.5-8.1) Albumin 3.6 g/dL (3.5-5.0) Globulin 3.5 g/dL (2.3-3.5) Albumin/Globulin Ratio 1.0 (0.8-2.0) Lab results reviewed: Yes Imaging Imaging results reviewed: Yes Impressions EXAMINATION: CHEST SINGLE (PORTABLE) INDICATION: SOB WHEEZING, COPD COMPARISON: Chest radiograph 11/10/[address] chest 11/10/2018. FINDINGS: TUBES and LINES: None. LUNGS: Emphysematous lungs with mild hyperinflation. Mild bronchial wall thickening. Mild patchy right basilar opacity. No evidence of lobar consolidation. PLEURA: No pleural effusion or pneumothorax. HEART AND MEDIASTINUM: The cardiomediastinal silhouette is unremarkable. BONES AND SOFT TISSUES: No acute osseous abnormality. Partially seen lumbar spine fixation hardware. UPPER ABDOMEN: No free air under the diaphragm. IMPRESSION: Emphysematous lungs with mild patchy right basilar opacity, likely atelectasis, although infection is possible in the appropriate clinical setting. Mild bronchial wall thickening, suggestive of bronchitis in the setting of cough. Signed by: Dr. Fredi Prater MD on 12/18/2019 5:27 PM Procedures 12 Lead ECG Interpretation Side Sawyer: Interpreted by ED physician Date: Dec 18, 2019 Time: 15:48 Rhythm: sinus rhythm Rate: normal (91) QRS axis: normal ST segments normal: Yes T waves normal: Yes Clinical Impression: normal ECG Critical Care Time Subsequent provider I assumed direction of critical care for this patient from another provider of my specialty. Assessment & Plan Reassessment Reassessment CHECK CBC, CHEM, CARDIAC ENZYMES, ECG, CXR, BNP - R/O COPD EXAC, BRONCHITIS, PNEUMONIA, STEMI/NSTEMI, CHF PT FEELS BETTER, WANTS TO GO HOME, IMPROVED AIR MOVEMENT ON LUNG EXAM, STILL WHEEZING BUT MUCH IMPROVED - WILL GIVE ONE MORE DUONEB PRIOR TO DS/C Assessment & Plan Final Impression: (1) COPD exacerbation (2) Bronchitis Assessment & Plan DC HOME, Z-PACK, MEDROL DOSEPAK, REFILL ALBUTEROL MDI, COUNSELED ON SMOKING CESSATION, F/U WITH PCP RAO AND GIVE NUMBER FOR Mary SHARMA TO CALL FOR APPT IN AM Depart Disposition: HOME, SELF-CARE Last Vital Signs Date Time Temp Pulse Resp B/P (MAP) Pulse Ox O2 Delivery O2 Flow Rate FiO2 12/18/19 18:19 98.2 72 18 102/74 99 Home Meds Reported Medications Buspirone Hcl (BUSPIRONE HCL) 7.5 Mg Tablet, 7.5 MG PO BID 06/09/18 Oxcarbazepine (OXCARBAZEPINE) 600 Mg Tablet, 600 MG PO BID 06/09/18 Zolpidem Tartrate (ZOLPIDEM TARTRATE) 10 Mg Tablet, 10 MG PO HS PRN for INSOMNIA 06/09/18 Albuterol Sulf* (PROAIR HFA INHALER*) 8.5 Gm Inh, 2 INH INH QID 06/09/18 Alendronate Sodium (ALENDRONATE SODIUM) 70 Mg Tablet, 70 MG PO PRN EVERY WEEK 06/09/18 Tizanidine Hcl (TIZANIDINE HCL) 4 Mg Tablet, 4 MG PO Q8HR 06/09/18 Meloxicam (MELOXICAM) 15 Mg Tablet, 15 MG PO DAILY 06/09/18 Gabapentin (GABAPENTIN) 300 Mg Capsule, 300 MG PO TID, #60 CAP 07/02/17 Clopidogrel Bisulfate* (PLAVIX) 75 Mg Tablet, 75 MG PO DAILY, #30 TAB 07/02/17 Medications in the ED Albuterol/ Ipratropium 6 ml ONCE ONCE NEB Last administered on 12/18/19at 15:50; Admin Dose 6 ML; Start 12/18/19 at 16:00; Stop 12/18/19 at 16:01; Status DC Albuterol/ Ipratropium 6 ml STK-MED ONCE .ROUTE ; Start 12/18/19 at 16:03; Stop 12/18/19 at 15:58; Status DC Methylprednisolone Sodium Succinate 125 mg ONCE STAT IM ; Start 12/18/19 at 15:55; Stop 12/18/19 at 16:13; Status DC Methylprednisolone Sodium Succinate 125 mg ONCE ONCE IV Last administered on 12/18/19at 16:25; Admin Dose 125 MG; Start 12/18/19 at 16:30; Stop 12/18/19 at 16:31; Status DC Acetaminophen/ Hydrocodone Bitart 1 ea ONCE ONCE PO Last administered on 12/18/19at 17:17; Admin Dose 1 EA; Start 12/18/19 at 17:15; Stop 12/18/19 at 17:16; Status DC Albuterol/ Ipratropium 6 ml ONCE ONCE NEB ; Start 12/18/19 at 18:30; Stop 12/18/19 at 18:31 NATTY TEE MD Dec 18, 2019 18:45
== END 2019-12-18 19:00 | disposition home or self-care (01) ==
LOC: ER 15:42
DX: R05 Cough (principal); J44.1 Chronic obstructive pulmonary disease with (acute) exacerbation; J40 Bronchitis, not specified as acute or chronic; Z86.73 Personal history of transient ischemic attack (TIA), and cerebral infarction without residual deficits; F17.210 Nicotine dependence, cigarettes, uncomplicated
CPT/HCPCS: 36415; 71045; 80053; 82550; 82553; 83880; 84484; 85025; 85610; 85730; 93005; 94640; 99284; J2930

== ENCOUNTER → 2020-01-12 | Emergency (ER) | payer OTHER ==
[~2020-01-12] VITALS: Ht 172.7 cm; Wt 56.7 kg
[~2020-01-12] MED LIST changes: +AZITHROMYCIN250 MG PO
--- NOTE | 2020-01-12 12:29 | NUR ---
pt upset because she was told she would have to wait in the lobby due to o2 sat 100% and resp 18 dr armstrong evaluated pt prior to sending pt to lobby pt states she does not want to wait in lobby and decided to go home
--- NOTE | 2020-01-12 12:35 | Emergency Department Note ---
History of Present Illnes History of Present Illness Chief Complaint: COVID PUI History of Present Illness This is a 64 year old female arrived to the ED with complaints of a cough. Patient to smoking 1-2 packs of cigarettes every day states she is unable to do so today. . 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 Any updates have been documented here. Past Medical History Recent Fever: No Clinical Suspicion of Infectio: No New/Unexplained Change in Ment: No Past Medical History: COPD, CVA Other Medical History: "leaky heart valve" Christian to face & hands CVAx2 Back hardware LLE franck d/t fx Past Surgical History: Hysterectomy, T&A Other Surgery: left hip surgery Other Last Tetanus: UTD Review of Systems Review of Systems Constitutional: Reports no symptoms EENTM: Reports no symptoms Cardiovascular: Reports no symptoms Respiratory: Reports as per HPI, Reports cough Gastrointestinal: Reports no symptoms Genitourinary: Reports no symptoms Musculoskeletal: Reports no symptoms Integumentary: Reports no symptoms Neurological: Reports no symptoms Psychological: Reports no symptoms Endocrine: Reports no symptoms Hematological/Lymphatic: Reports no symptoms Physical Exam Related Data Allergies: Coded Allergies: Iodinated Contrast Media (Verified Allergy, Severe, ANAPHYLAXIS, 11/10/18) morphine (Verified Allergy, Unknown, itch, 12/18/19) Triage Vital Signs Vital Signs Date Time Temp Pulse Resp B/P (MAP) Pulse Ox O2 Delivery O2 Flow Rate FiO2 01/12/20 12:19 98.5 88 26 155/98 98 Non-Rebreather 15.0 Vital signs reviewed: Yes (0) Physical Exam CONSTITUTIONAL Constitutional: Present well-developed, Present well-nourished HENT HENT: Present normocephalic, Present atraumatic, Present oropharynx clear/moist, Present nose normal HENT L/R: Present left ext ear normal, Present right ext ear normal EYES Eyes: Reports PERRL, Reports conjunctivae normal NECK Neck: Present ROM normal PULMONARY Pulmonary: Present effort normal, Present breath sounds normal CARDIOVASCULAR Cardiovascular: Present regular rhythm, Present heart sounds normal, Present capillary refill normal, Present normal rate GASTROINTESTINAL Abdominal: Present soft, Present nontender, Present bowel sounds normal GENITOURINARY Genitourinary: Present exam deferred SKIN Skin: Present warm, Present dry MUSCULOSKELETAL Musculoskeletal: Present ROM normal NEUROLOGICAL Neurological: Present alert, Present oriented x 3, Present no gross motor or sensory deficits PSYCHOLOGICAL Psychological: Present mood/affect normal, Present judgement normal Assessment & Plan Medical Decision Making JOSSELYN 65 erythema arrived to the ED with complaints of shortness of breath, patient's oxygen saturation normal in the emergency department. While the coronavirus is on the differential diagnosis, patient is presenting with symptoms also consistent with COPD exacerbation secondary to her pack per day tobacco use. Patient well-appearing states she does not want to stay for further workup if it means waiting the lobby, spoke to patient at length that complete ER workup would be provided and she was removed to room as soon as well as available. Patient expressed understanding states she rather follow-up with her recreation teacher as an outpatient. Patient well-appearing a ambulatory and speaking full sentences at time of discharge. Assessment & Plan Final Impression: (1) COPD exacerbation Depart Disposition: HOME, SELF-CARE Last Vital Signs Date Time Temp Pulse Resp B/P (MAP) Pulse Ox O2 Delivery O2 Flow Rate FiO2 01/12/20 12:19 98.5 88 26 155/98 98 Non-Rebreather 15.0 Home Meds Active Scripts Azithromycin (Z-MOLLY) 250 Mg Tablet, 1 PKG PO DIRECTED, #1 PKG 0 Refills Prov:EMILIA ALANIS, DO 01/12/20 Reported Medications Buspirone Hcl (BUSPIRONE HCL) 7.5 Mg Tablet, 7.5 MG PO BID 06/09/18 Oxcarbazepine (OXCARBAZEPINE) 600 Mg Tablet, 600 MG PO BID 06/09/18 Zolpidem Tartrate (ZOLPIDEM TARTRATE) 10 Mg Tablet, 10 MG PO HS PRN for INSOMNIA 06/09/18 Albuterol Sulf* (PROAIR HFA INHALER*) 8.5 Gm Inh, 2 INH INH QID 06/09/18 Alendronate Sodium (ALENDRONATE SODIUM) 70 Mg Tablet, 70 MG PO PRN EVERY WEEK 06/09/18 Tizanidine Hcl (TIZANIDINE HCL) 4 Mg Tablet, 4 MG PO Q8HR 06/09/18 Meloxicam (MELOXICAM) 15 Mg Tablet, 15 MG PO DAILY 06/09/18 Gabapentin (GABAPENTIN) 300 Mg Capsule, 300 MG PO TID, #60 CAP 07/02/17 Clopidogrel Bisulfate* (PLAVIX) 75 Mg Tablet, 75 MG PO DAILY, #30 TAB 07/02/17 EMILIA ALANIS, Jan 12, 2020 12:35
== END | disposition home or self-care (01) ==
LOC: ER 15:39
DX: J44.1 Chronic obstructive pulmonary disease with (acute) exacerbation (principal); R05 Cough; Z86.73 Personal history of transient ischemic attack (TIA), and cerebral infarction without residual deficits; F17.210 Nicotine dependence, cigarettes, uncomplicated
CPT/HCPCS: 99284

== ENCOUNTER 2020-01-26 22:23 | Emergency (ER) | payer OTHER ==
[~2020-01-26] VITALS: Ht 172.7 cm; Wt 56.7 kg
--- NOTE | 2020-01-26 22:28 | Emergency Department Note ---
History of Present Illnes History of Present Illness Chief Complaint: Respiratory History of Present Illness This is a 64 year old female with h/o tobacco abuse presents to the ED for acute on chronic COPD exacerbatoin. Arrival Mode: [facility] Treatment [employer]: See EMS Report Onset (how long ago): week(s) (1) Severity: moderate Onset quality: gradual Duration (how long): week(s) (1) Timing of current episode: constant Progression: worsening Context: Reports recent illness Relieving factors: none Exacerbating factors: none Previous service: medications given, tests performed, one or more referrals, re-evaluation Past Medical/Family History Physician Review I have reviewed the patient's past medical and family history. Any updates have been documented here. Past Medical History Recent Fever: No Clinical Suspicion of Infectio: Yes New/Unexplained Change in Ment: No Past Medical History: COPD, CVA Other Medical History: "leaky heart valve" Christian to face & hands CVAx2 Back hardware LLE franck d/t fx Past Surgical History: Hysterectomy, T&A Other Surgery: left hip surgery Social History Smoking Cessation: Current every day smoker Counseling Performed: Yes Alcohol Use: None Any Illegal Drug Use: No Other Last Tetanus: UTD Review of Systems Review of Systems Constitutional: Reports no symptoms EENTM: Reports no symptoms Cardiovascular: Reports no symptoms Respiratory: Reports cough, Reports dyspnea Gastrointestinal: Reports no symptoms Genitourinary: Reports no symptoms Musculoskeletal: Reports no symptoms Integumentary: Reports no symptoms Neurological: Reports no symptoms Psychological: Reports no symptoms Endocrine: Reports no symptoms Hematological/Lymphatic: Reports no symptoms Physical Exam Related Data Allergies: Coded Allergies: Iodinated Contrast Media (Verified Allergy, Severe, ANAPHYLAXIS, 11/10/18) morphine (Verified Allergy, Unknown, itch, 12/18/19) Triage Vital Signs Vital Signs Date Time Temp Pulse Resp B/P (MAP) Pulse Ox O2 Delivery O2 Flow Rate FiO2 01/26/20 22:36 98.1 98 18 118/77 96 Room Air Vital signs reviewed: Yes Physical Exam CONSTITUTIONAL Constitutional: Present cachectic HENT HENT: Present normocephalic, Present atraumatic, Present oropharynx clear/moist, Present nose normal HENT L/R: Present left ext ear normal, Present right ext ear normal EYES Eyes: Reports PERRL, Reports conjunctivae normal NECK Neck: Present ROM normal PULMONARY Pulmonary: Present other (wheezing) CARDIOVASCULAR Cardiovascular: Present regular rhythm, Present heart sounds normal, Present capillary refill normal, Present normal rate GASTROINTESTINAL Abdominal: Present soft, Present nontender, Present bowel sounds normal GENITOURINARY Genitourinary: Present exam deferred SKIN Skin: Present warm, Present dry MUSCULOSKELETAL Musculoskeletal: Present ROM normal NEUROLOGICAL Neurological: Present alert, Present oriented x 3, Present no gross motor or sensory deficits PSYCHOLOGICAL Psychological: Present mood/affect normal, Present judgement normal Results Laboratory Lab results reviewed: Yes Laboratory comments Laboratory Tests Test 01/26/20 22:41 White Blood Count 13.71 x10e3/uL (4.8-10.8) Red Blood Count 3.65 x10e6/uL (3.6-5.1) Hemoglobin 10.6 g/dL (12.0-16.0) Hematocrit 32.6 % (34.2-44.1) Mean Corpuscular Volume 89.3 fL (81-99) Mean Corpuscular Hemoglobin 29.0 pg (28-32) Mean Corpuscular Hemoglobin Concent 32.5 g/dL (31-35) Red Cell Distribution Width 15.2 % (11.7-14.4) Platelet Count 270 x10e3/uL (140-360) Neutrophils (%) (Auto) 73.6 % (38.7-80.0) Lymphocytes (%) (Auto) 18.2 % (18.0-39.1) Monocytes (%) (Auto) 6.3 % (4.4-11.3) Eosinophils (%) (Auto) 1.0 % (0.0-6.0) Basophils (%) (Auto) 0.4 % (0.0-1.0) Neutrophils # (Auto) 10.1 (2.1-6.9) Lymphocytes # (Auto) 2.5 (1.0-3.2) Monocytes # (Auto) 0.9 (0.2-0.8) Eosinophils # (Auto) 0.1 (0.0-0.4) Basophils # (Auto) 0.1 (0.0-0.1) Absolute Immature Granulocyte (auto 0.07 x10e3/uL (0-0.1) Sodium Level 132 mmol/L (136-145) Potassium Level 4.0 mmol/L (3.5-5.1) Chloride Level 97 mmol/L (98-107) Carbon Dioxide Level 27 mmol/L (22-29) Anion Gap 12.0 mmol/L (8-16) Blood Urea Nitrogen 8 mg/dL (7-26) Creatinine 0.69 mg/dL (0.57-1.11) Estimat Glomerular Filtration Rate > 60 ML/MIN (60-) BUN/Creatinine Ratio 12 (6-25) Glucose Level 100 mg/dL (74-118) Calcium Level 8.8 mg/dL (8.4-10.2) Total Bilirubin 0.2 mg/dL (0.2-1.2) Aspartate Amino Transf (AST/SGOT) 17 IU/L (5-34) Alanine Aminotransferase (ALT/SGPT) 7 IU/L (0-55) Alkaline Phosphatase 81 IU/L (40-150) B-Type Natriuretic Peptide 14.7 pg/mL (0-100) Total Protein 7.3 g/dL (6.5-8.1) Albumin 3.5 g/dL (3.5-5.0) Globulin 3.8 g/dL (2.3-3.5) Albumin/Globulin Ratio 0.9 (0.8-2.0) Imaging Imaging results reviewed: Yes Impressions [place] [id number] Patient Name: VIRA MESSINA MR #: [id number] : 1955 Age/Sex: 64/F Req #: [id number] Adm Physician: Ordered by: AMLGORZATA CERVANTES DO Report #: [id number] Location: ER Room/Bed: Procedure: [id number] DX/CHEST SINGLE (PORTABLE) Exam Date: 01/26/20 Exam Time: 2244 REPORT STATUS: Signed Examination: Single AP view of the chest. COMPARISON: Portable chest 12/18/2019 INDICATION: COPD, cough, shortness of breath IMPRESSION: 1. Lines and Tubes: None 2. Lungs are mildly hyperinflated. Mild bronchial wall thickening in the left lower lung, which may reflect bronchitis. No consolidation or effusion. 3. Cardiomediastinal silhouette is normal. Pulmonary vasculature is normal. 4. No acute bony abnormalities. Signed by: Dr. Jovon Kaminski M.D. on 01/26/2020 11:19 PM Dictated By: JOVON KAMINSKI MD 18 Transcribed By: SONAM on 01/26/202318 COPY TO: MALGORZATA CERVANTES DO~ Procedures 12 Lead ECG Interpretation ECG Interpretation : ECG: ECG 1 Interlocking Tower Operator: Interpreted by ED physician Date: Jan 26, 2020 Time: 22:50 Prior ECG tracings: reviewed Rhythm: sinus rhythm Rate: normal BPM: 97 Conduction: right bundle branch block ST segments normal: Yes T waves normal: Yes Clinical Impression: non-specific ECG Assessment & Plan Medical Decision Making MDM Diff Dx : COPD, Covid-19 infection, pneumonia, sepsis, ACS Assessment & Plan Final Impression: (1) COPD exacerbation Depart Disposition: HOME, SELF-halfway Meds Active Scripts Azithromycin (Z-MOLLY) 250 Mg Tablet, 1 PKG PO DIRECTED, #1 PKG 0 Refills Prov:EMILIA ALANISDO 01/12/20 Reported Medications Buspirone Hcl (BUSPIRONE HCL) 7.5 Mg Tablet, 7.5 MG PO BID 06/09/18 Oxcarbazepine (OXCARBAZEPINE) 600 Mg Tablet, 600 MG PO BID 06/09/18 Zolpidem Tartrate (ZOLPIDEM TARTRATE) 10 Mg Tablet, 10 MG PO HS PRN for INSOMNIA 06/09/18 Albuterol Sulf* (PROAIR HFA INHALER*) 8.5 Gm Inh, 2 INH INH QID 06/09/18 Alendronate Sodium (ALENDRONATE SODIUM) 70 Mg Tablet, 70 MG PO PRN EVERY WEEK 06/09/18 Tizanidine Hcl (TIZANIDINE HCL) 4 Mg Tablet, 4 MG PO Q8HR 06/09/18 Meloxicam (MELOXICAM) 15 Mg Tablet, 15 MG PO DAILY 06/09/18 Gabapentin (GABAPENTIN) 300 Mg Capsule, 300 MG PO TID, #60 CAP 07/02/17 Clopidogrel Bisulfate* (PLAVIX) 75 Mg Tablet, 75 MG PO DAILY, #30 TAB 07/02/17 MALGORZATA CERVANTES DO Jan 26, 2020 22:28
[2020-01-26] MEDS ORDERED: ALBUTEROL/IPRATROPIUM 3 ML NEB NEB STA (22:38)
[2020-01-26] MEDS ORDERED: METHYLPREDNISOLONE SOD SUCC 125 MG/2ML VIAL IV ONE (22:45)
[2020-01-26 22:52] LABS: BASOPHILS # (AUTO) 0.1 (0.0-0.1); BASOPHILS % 0.4 % (0.0-1.0); EOSINOPHILS # (AUTO) 0.1 (0.0-0.4); HEMATOCRIT 32.6 % (34.2-44.1); HEMOGLOBIN 10.6 g/dL (12.0-16.0); LYMPHOCYTES # (AUTO) 2.5 (1.0-3.2); LYMPHOCYTES % 18.2 % (18.0-39.1); MEAN CORPUSCULAR HGB CONC 32.5 g/dL (31-35); MEAN CORPUSCULAR VOLUME 89.3 fL (81-99); MONOCYTES # (AUTO) 0.9 (0.2-0.8); MONOCYTES % 6.3 % (4.4-11.3); NEUTROPHILS # (AUTO) 10.1 (2.1-6.9); NEUTROPHILS % 73.6 % (38.7-80.0); PLATELET COUNT 270 x10e3/uL (140-360); RED BLOOD COUNT 3.65 x10e6/uL (3.6-5.1); RED CELL DISTRIBUTION WIDTH 15.2 % (11.7-14.4)
[2020-01-26 23:10] LABS: ALANINE AMINOTRANSFERASE 7 IU/L (0-55); ALBUMIN 3.5 g/dL (3.5-5.0); ALBUMIN/GLOBULIN RATIO 0.9 (0.8-2.0); ALKALINE PHOSPHATASE 81 IU/L (40-150); BLOOD UREA NITROGEN 8 mg/dL (7-26); BUN/CREATININE RATIO 12 (6-25); CALCIUM 8.8 mg/dL (8.4-10.2); CARBON DIOXIDE 27 mmol/L (22-29); CHLORIDE 97 mmol/L (98-107); CREATININE, SERUM 0.69 mg/dL (0.57-1.11); EST GLOMERULAR FILTRATION RATE > 60 ML/MIN (60-); GLUCOSE 100 mg/dL (74-118); SODIUM 132 mmol/L (136-145)
--- NOTE | 2020-01-26 23:22 | Diagnostic Imaging Report ---
Examination: Single AP view of the chest. COMPARISON: Portable chest 12/18/2019 INDICATION: COPD, cough, shortness of breath IMPRESSION: 1. Lines and Tubes: None 2. Lungs are mildly hyperinflated. Mild bronchial wall thickening in the left lower lung, which may reflect bronchitis. No consolidation or effusion. 3. Cardiomediastinal silhouette is normal. Pulmonary vasculature is normal. 4. No acute bony abnormalities. Signed by: Dr. Trevor Kaminski M.D. on 01/26/2020 11:19 PM
== END 2020-01-27 00:10 | disposition home or self-care (01) ==
LOC: ER 22:40
DX: J44.1 Chronic obstructive pulmonary disease with (acute) exacerbation (principal); Z86.73 Personal history of transient ischemic attack (TIA), and cerebral infarction without residual deficits; F17.210 Nicotine dependence, cigarettes, uncomplicated
CPT/HCPCS: 36415; 71045; 80053; 83880; 85025; 93005; 99283; J2930

== ENCOUNTER 2020-03-18 22:18 | Inpatient (IN) | payer OTHER ==
[~2020-03-18] VITALS: Ht 172.7 cm; Wt 64.2 kg
[2020-03-18] MEDS ORDERED: CEFTRIAXONE SOD 1 GM/NS 50 ML 50 ML IV ONE (22:30)
[2020-03-18] MEDS ORDERED: SODIUM CHLORIDE 0.9% 1000ML 1,000 ML IV ONE (22:30)
[2020-03-18] MEDS ORDERED: METHYLPREDNISOLONE SOD SUCC 125 MG/2ML VIAL IV ONE (22:30)
[2020-03-18] MEDS ORDERED: ALBUTEROL SULFATE HFA 8GM INHALATION AEROSOL INH ONE (22:30)
[2020-03-18 22:53] LABS: BASOPHILS # (AUTO) 0.1 (0.0-0.1); BASOPHILS % 0.5 % (0.0-1.0); EOSINOPHILS # (AUTO) 0.4 (0.0-0.4); HEMATOCRIT 34.8 % (34.2-44.1); HEMOGLOBIN 11.1 g/dL (12.0-16.0); LYMPHOCYTES # (AUTO) 2.5 (1.0-3.2); MEAN CORPUSCULAR HEMOGLOBIN 28.6 pg (28-32); MEAN CORPUSCULAR HGB CONC 31.9 g/dL (31-35); MEAN CORPUSCULAR VOLUME 89.7 fL (81-99); MONOCYTES # (AUTO) 1.5 (0.2-0.8); MONOCYTES % 7.8 % (4.4-11.3); NEUTROPHILS # (AUTO) 14.7 (2.1-6.9); NEUTROPHILS % 76.1 % (38.7-80.0); PLATELET COUNT 333 x10e3/uL (140-360); RED BLOOD COUNT 3.88 x10e6/uL (3.6-5.1); RED CELL DISTRIBUTION WIDTH 14.7 % (11.7-14.4)
--- NOTE | 2020-03-18 23:01 | Emergency Department Note ---
History of Present Illnes History of Present Illness Chief Complaint: Respiratory History of Present Illness This is a 64 year old female PRESENTS TO ED VIA EMS WITH REPORT OF CHEST PAIN AND SOB X1 WEEK; WAS SEEN AT [facility] LAST WEEK FOR SAME STATED S/S; SPO2 RA 94%; O2 APPLIED VIA NC AT 3 LPM WITH RESULTING SPO2 100%; . 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 Arrival Mode: [employer] Program Coordinator Required: No Onset (how long ago): day(s) (7) Location: CHEST Quality: PAIN, SOB, COUGH Radiation: Reports non-radiation Severity: moderate Onset quality: gradual Duration (how long): day(s) (7) Timing of current episode: constant Progression: unchanged Chronicity: recurrent Context: Denies recent illness, Denies recent surgery, Denies trauma/injury Relieving factors: none, rest Exacerbating factors: movement, other (COUGHING) Associated symptoms: Reports chest pain, Reports cough; Denies diaphoresis, Denies fever/chills, Denies headaches Treatments prior to arrival: none Past Medical/Family History Physician Review I have reviewed the patient's past medical and family history. Any updates have been documented here. Past Medical History Recent Fever: No Clinical Suspicion of Infectio: Yes New/Unexplained Change in Ment: No Past Medical History: COPD, CVA Other Medical History: "leaky heart valve" Christian to face & hands CVAx2 Back hardware LLE franck d/t fx Past Surgical History: Hysterectomy, T&A Other Surgery: left hip surgery Social History Smoking Cessation: Current every day smoker Counseling Performed: No Alcohol Use: None Any Illegal Drug Use: No Physically hurt or threatened: No Other Last Tetanus: UTD Any Pre-Existing Lines (PICC,: No Review of Systems Review of Systems Constitutional: Reports no symptoms EENTM: Reports no symptoms Cardiovascular: Reports as per HPI Respiratory: Reports as per HPI Gastrointestinal: Reports no symptoms Genitourinary: Reports no symptoms Musculoskeletal: Reports no symptoms Integumentary: Reports no symptoms Neurological: Reports no symptoms Psychological: Reports no symptoms Endocrine: Reports no symptoms Hematological/Lymphatic: Reports no symptoms Physical Exam Related Data Allergies: Coded Allergies: Iodinated Contrast Media (Verified Allergy, Severe, ANAPHYLAXIS, 11/10/18) morphine (Verified Allergy, Unknown, itch, 12/18/19) Triage Vital Signs Vital Signs Date Time Temp Pulse Resp B/P (MAP) Pulse Ox O2 Delivery O2 Flow Rate FiO2 03/18/20 22:20 99.5 106 32 142/84 100 Room Air 03/18/20 22:49 2.0 Vital signs reviewed: Yes Physical Exam CONSTITUTIONAL Constitutional: Present well-developed, Present well-nourished; Absent distressed HENT HENT: Present normocephalic, Present atraumatic, Present oropharynx clear/moist, Present nose normal HENT L/R: Present left ext ear normal, Present right ext ear normal EYES Eyes: Reports PERRL, Reports conjunctivae normal NECK Neck: Present ROM normal PULMONARY Pulmonary: Present effort normal, Present other (DECREASED BREATH SOUNDS AT BASE BILATERAL, FAINT END EXPIRATORY WHEEZING) CARDIOVASCULAR Cardiovascular: Present regular rhythm, Present heart sounds normal, Present capillary refill normal, Present tachycardia GASTROINTESTINAL Abdominal: Present soft, Present nontender, Present bowel sounds normal GENITOURINARY Genitourinary: Present exam deferred SKIN Skin: Present warm, Present dry MUSCULOSKELETAL Musculoskeletal: Present ROM normal NEUROLOGICAL Neurological: Present alert, Present oriented x 3, Present no gross motor or sensory deficits PSYCHOLOGICAL Psychological: Present mood/affect normal, Present judgement normal Results Laboratory Result Diagram: 03/18/20 2222 Laboratory Laboratory Tests Test 03/18/20 22:45 03/18/20 22:22 Coronavirus (PCR) Not detected (NOTDETECTED) White Blood Count 19.29 x10e3/uL (4.8-10.8) Red Blood Count 3.88 x10e6/uL (3.6-5.1) Hemoglobin 11.1 g/dL (12.0-16.0) Hematocrit 34.8 % (34.2-44.1) Mean Corpuscular Volume 89.7 fL (81-99) Mean Corpuscular Hemoglobin 28.6 pg (28-32) Mean Corpuscular Hemoglobin Concent 31.9 g/dL (31-35) Red Cell Distribution Width 14.7 % (11.7-14.4) Platelet Count 333 x10e3/uL (140-360) Neutrophils (%) (Auto) 76.1 % (38.7-80.0) Lymphocytes (%) (Auto) 13.0 % (18.0-39.1) Monocytes (%) (Auto) 7.8 % (4.4-11.3) Eosinophils (%) (Auto) 2.0 % (0.0-6.0) Basophils (%) (Auto) 0.5 % (0.0-1.0) Neutrophils # (Auto) 14.7 (2.1-6.9) Lymphocytes # (Auto) 2.5 (1.0-3.2) Monocytes # (Auto) 1.5 (0.2-0.8) Eosinophils # (Auto) 0.4 (0.0-0.4) Basophils # (Auto) 0.1 (0.0-0.1) Absolute Immature Granulocyte (auto 0.11 x10e3/uL (0-0.1) Sodium Level 134 mmol/L (136-145) Potassium Level 4.5 mmol/L (3.5-5.1) Chloride Level 96 mmol/L (98-107) Carbon Dioxide Level 25 mmol/L (22-29) Anion Gap 17.5 mmol/L (8-16) Blood Urea Nitrogen 7 mg/dL (7-26) Creatinine 0.78 mg/dL (0.57-1.11) Estimat Glomerular Filtration Rate > 60 ML/MIN (60-) BUN/Creatinine Ratio 9 (6-25) Glucose Level 107 mg/dL (74-118) Lactic Acid Level 1.5 mmol/L (0.5-2.0) Calcium Level 9.1 mg/dL (8.4-10.2) Total Bilirubin 0.3 mg/dL (0.2-1.2) Aspartate Amino Transf (AST/SGOT) 19 IU/L (5-34) Alanine Aminotransferase (ALT/SGPT) < 6 IU/L (0-55) Alkaline Phosphatase 100 IU/L (40-150) Creatine Kinase 131 IU/L (29-168) Creatine Kinase MB 1.50 ng/mL (0-5.0) Troponin I 0.020 ng/mL (0-0.300) Total Protein 7.7 g/dL (6.5-8.1) Albumin 4.1 g/dL (3.5-5.0) Globulin 3.6 g/dL (2.3-3.5) Albumin/Globulin Ratio 1.1 (0.8-2.0) Laboratory Tests Test 03/18/20 22:45 03/18/20 22:22 White Blood Count 19.29 x10e3/uL (4.8-10.8) Red Blood Count 3.88 x10e6/uL (3.6-5.1) Hemoglobin 11.1 g/dL (12.0-16.0) Hematocrit 34.8 % (34.2-44.1) Mean Corpuscular Volume 89.7 fL (81-99) Mean Corpuscular Hemoglobin 28.6 pg (28-32) Mean Corpuscular Hemoglobin Concent 31.9 g/dL (31-35) Red Cell Distribution Width 14.7 % (11.7-14.4) Platelet Count 333 x10e3/uL (140-360) Neutrophils (%) (Auto) 76.1 % (38.7-80.0) Lymphocytes (%) (Auto) 13.0 % (18.0-39.1) Monocytes (%) (Auto) 7.8 % (4.4-11.3) Eosinophils (%) (Auto) 2.0 % (0.0-6.0) Basophils (%) (Auto) 0.5 % (0.0-1.0) Neutrophils # (Auto) 14.7 (2.1-6.9) Lymphocytes # (Auto) 2.5 (1.0-3.2) Monocytes # (Auto) 1.5 (0.2-0.8) Eosinophils # (Auto) 0.4 (0.0-0.4) Basophils # (Auto) 0.1 (0.0-0.1) Absolute Immature Granulocyte (auto 0.11 x10e3/uL (0-0.1) Lab results reviewed: Yes Imaging Imaging results reviewed: Yes Impressions Patient Name: VIRA MESSINA MR #: [id number] : 1955 Age/Sex: 64/F Req #: [id number] Adm Physician: Ordered by: JC DYER MD Report #: [id number] Location: Room/Bed: Procedure: [id number] DX/CHEST SINGLE (PORTABLE) Exam Date: 03/18/20 Exam Time: 2324 REPORT STATUS: Signed EXAMINATION: CHEST SINGLE (PORTABLE) INDICATION: ^Y ^SOB, COUGH ^[id number] ^2325 ^Y COMPARISON: 01/26/2020 FINDINGS: AP view TUBES and LINES: None. LUNGS: Lungs are well inflated. Mild central vascular congestion. Minimal retrocardiac haziness. PLEURA: No significant pleural effusion or pneumothorax. HEART AND MEDIASTINUM: The cardiomediastinal silhouette is unremarkable. BONES AND SOFT TISSUES: No acute osseous lesion. Soft tissues are unremarkable. UPPER ABDOMEN: No free air under the diaphragm. IMPRESSION: Mild central vascular congestion. Minimal retrocardiac haziness, likely subsegmental atelectasis. Developing pneumonia cannot be excluded in the appropriate clinical context. Signed by: Dr. Terrance Buckner MD on 03/19/2020 12:30 AM Dictated By: TERRANCE BUCKNER MD Transcribed By: SONAM on 03/19/2029 COPY TO: JC DYER MD~ Procedures 12 Lead ECG Interpretation ECG Interpretation : ECG: ECG 1 [employer] Safety Program Coordinator: Interpreted by ED physician Date: Mar 18, 2020 Time: 22:30 Prior ECG tracings: reviewed Rate: tachycardia BPM: 106 QRS axis: normal Conduction: intraventricular conduction delay ST segments normal: Yes T waves normal: Yes Other findings: no other findings Clinical Impression: abnormal ECG Assessment & Plan Medical Decision Making [facility] PT WITH H/O COPD WHO STILL SMOKES WITH CHEST PAIN, COUGH, SOB CBC, CMP, EKG, CARDIAC ENZYMES, CXR, COVID 19, BLOOD CULTURES, LACTIC ACID ORDERED TO EVAL FOR SEPSIS, PNEUMONIA, COVID 19, MYOCARDIAL INFARCTION, ELECTROLYTE ABNORMALITY ALBUTEROL INHALER 2 PUFFS INH ORDERED ROCEPHIN 1 GRAM IV ORDERED 1 LITER NS IV BOLUS ORDERED PT'S COVID 19 TEST NEGATIVE I SPOKE WITH DR DUARTE, ADMIT TO INPATIENT Assessment & Plan Final Impression: (1) COPD (chronic obstructive pulmonary disease) (2) Pneumonia Depart Disposition: ADMITTED Last Vital Signs Date Time Temp Pulse Resp B/P (MAP) Pulse Ox O2 Delivery O2 Flow Rate FiO2 03/18/20 22:49 101 15 129/69 100 Nasal Cannula 2.0 03/18/20 22:20 99.5 Home Meds Active Scripts Azithromycin (Z-MOLLY) 250 Mg Tablet, 1 PKG PO DIRECTED, #1 PKG 0 Refills Prov:FRANKIEHIR, AMBICA, DO 01/12/20 Reported Medications Buspirone Hcl (BUSPIRONE HCL) 7.5 Mg Tablet, 7.5 MG PO BID 06/09/18 Oxcarbazepine (OXCARBAZEPINE) 600 Mg Tablet, 600 MG PO BID 06/09/18 Zolpidem Tartrate (ZOLPIDEM TARTRATE) 10 Mg Tablet, 10 MG PO HS PRN for INSOMNIA 06/09/18 Albuterol Sulf* (PROAIR HFA INHALER*) 8.5 Gm Inh, 2 INH INH QID 06/09/18 Alendronate Sodium (ALENDRONATE SODIUM) 70 Mg Tablet, 70 MG PO PRN EVERY WEEK 06/09/18 Tizanidine Hcl (TIZANIDINE HCL) 4 Mg Tablet, 4 MG PO Q8HR 06/09/18 Meloxicam (MELOXICAM) 15 Mg Tablet, 15 MG PO DAILY 06/09/18 Gabapentin (GABAPENTIN) 300 Mg Capsule, 300 MG PO TID, #60 CAP 07/02/17 Clopidogrel Bisulfate* (PLAVIX) 75 Mg Tablet, 75 MG PO DAILY, #30 TAB 07/02/17 Medications in the ED Ceftriaxone Sodium 50 ml @ 100 mls/hr ONCE ONCE IV ; Start 03/18/20 at 22:30; Stop 03/18/20 at 22:59 Methylprednisolone Sodium Succinate 125 mg ONCE ONCE IV ; Start 03/18/20 at 22:30; Stop 03/18/20 at 22:33; Status DC Albuterol INHALE 2 PUFFS BY MOUTH ONCE ONCE ONCE INH ; Start 03/18/20 at 22:30; Stop 03/18/20 at 22:33; Status DC Sodium Chloride 1,000 ml @ 999 mls/hr Q1H1M ONCE IV ; Start 03/18/20 at 22:30; Stop 03/18/20 at 23:30 JC DYER MD Mar 18, 2020 23:01
--- OUTSIDE RECORDS SUMMARY | 2020-03-18 23:02 | XMS REPORT | Continuity of Care Document ---
Author Author [employer] [employer] Address Unknown Phone Unavailable Care Team Providers Care Record Systems Analyst Name Role Phone [employer] Unavailable Un available Problems Problem Status Onset [...] Active 75 mg orally once a day [facility] Ambien 1 tab(s) [...]
--- OUTSIDE RECORDS SUMMARY | 2020-03-18 23:04 | XMS REPORT | Continuity of Care Document ---
Author Author [facility] t Organization [facility] Address [address] [place] [id number] Phone Unavailable Care Team Providers Care Corporate Accounting Manager Name Role Phone RAO DO Shama KHOURY PCP MALGORZATA CERVANTES Attphys Unavailable SWEET, Linda LUZ Attphys Unavailable HUSBYRamirez Attphys Unavailable KILLALIE LARES Attphys Unavailable MANEEVESE, V FIORDALIZA Attphys Unavailable KILLAM, ALIE Admphys Unavailable Payers Payer Name Policy Type Policy Number Effective Date Expiration Date [facility] [employer] [facility] [id number] 2011 00:00 :00 [facility] Problems Condition Name Condition Details Condition Category Status Onset Date Resolution Date Last Treatment Date Treating Clinician Comments Source Small bowel obstruction SBO (small bowel obstruction) Problem Active [facility] Acute exacerbation of chronic obstructive pulmonary disease Problem Active [facility] Bronchitis Problem Active [facility] Lumbago with sciatica, unspecified side Lumbago with sciatica, unspecified side Active Problem 12/26/2016 [facility] Problem Active 2016-12-26 02:46:31 Pablito Valdivia Chronic pain disorder 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 Active Problem 12/26/2016 [facility] Problem Active 2016-12-26 02:46:31 Marj Valdivia Laceration of elbow, left, initial encounter Laceration of elbow, left, initial encounter Active Diagnosis 12/25/2016 [facility] Diagnosis Active 2016-12-25 02:46:10 Marj Skip Elbow laceration, right, initial encounter Elbow laceration, right, initial encounter Active Diagnosis 12/25/2016 [facility] Diagnosis Active 2016-12-25 02:46:10 Me collin Valdivia History of stroke Hist ory of stroke Active Diagnosis 12/25/2016 [facility] Diagnosis Active 2016-12-25 02:46:10 [facility] Allergies, Adverse Reactions, Alerts Allergy Name Allergy Type Status Severity Reaction(s) Onset Date Inacti ve Date Treating Clinician Comments Source Iodine and Iodide Containing Produc FA Active SV 4 00:00:00 [facility] morphine DA Active [place] 2020-03-16 00:00:00 [facility] Iodine and Iodide Containing Produc FA Active SV 2020-01-11 7 00:00:00 [facility] morphine DA Active [place] 2020-01-27 00:00:00 [facility] Iodine and Iodide Containing Produc FA Active SV 3 00:00:00 [facility] morphine DA Active [place] 2020-01-13 00:00:00 [facility] Morphine Allergy to substance Active itch 2019-12-18 00:00:00 [facility] Iodine and Iodide Containing Produc FA Active SV 2019-11-11 6 00:00:00 [facility] morphine DA Active [place] 2019-11-26 00:00:00 [facility] Iodine and Iodide Containing Produc FA Active [place] 2019-04-14 1 00:00:00 [facility] morphine DA Active [place] 2019-05-12 00:00:00 [facility] Iodinated Contrast Media Allergy to substance Active Severe A NAPHYLAXIS 2018-11-10 00:00:00 [facility] Iodine and Iodide Containing Produc FA Active [place] 2017-11-10 5 00:00:00 [facility] morphine DA Active [place] 2017-11-24 00:00:00 [facility] morphine morphine Active anaphylaxis 2016-12-11 00:00:00 [facility] Social History Social Habit Start Date Stop Date Quantity Comments Source Sex Assigned At 1955 00:00:00 1955 00:00:00 Female [facility] Medications Ordered Medication Name Filled Medication Name Start Date Stop Da te Current Medication? Ordering Clinician Indication Dosage Frequency Signature (SIG) Comments Components Source Azithromycin (Z-Ethan) 250 Mg TABLET Azithromycin (Z-Ethan) 250 Mg TABLET 2020-01-12 12:34:00 Yes 1 As Directed [facility] Suboxone 2016-12-25 02:50:31 Yes RODOLFO COREA 2 ea [facility] Plavix 2016-12-25 02:46:10 Yes RODOLFO COREA 1 ta b(s) [facility] Ambien 2016-12-25 02:46:10 Yes RODOLFOCHRISTIE COREA 1 ta b(s) [facility] Albuterol Sulfate (Proair Hfa Inhaler*) 8.5 Gm INH Alb uterol Sulfate (Proair Hfa Inhaler*) 8.5 Gm INH Yes 2 Four Times Daily [facility] Alendronate Sodium Alendronate Sodium Yes 70 As Needed [facility] Buspirone Hcl Buspirone Hcl Yes 7.5 Twice A Day [facility] Clopidogrel Bisulfate (Plavix) 75 Mg TABLET Clopidogre l Bisulfate (Plavix) 75 Mg TABLET Yes 75 Daily [facility] Gabapentin Gabapentin Yes 300 Three Times A Day [facility] Meloxicam Meloxicam Yes 15 Daily [facility] Oxcarbazepine Oxcarbazepine Yes 600 Twice A Day [facility] Tizanidine Hcl Tizanidine Hcl Yes 4 Every 8 Ho urs [facility] Zolpidem Tartrate Zolpidem Tartrate Yes 10 Bedtime as needed for Insomnia [facility] Vital Signs Vital Name Observation Time Observation Value Comments Source Weight 2020-01-26 22:36:00 125 [lb_av] [facility] BMI (Body Mass Index) 2020-01-26 22:36:00 19.0 kg/m2 [facility] Weight 2019-12-18 15:45:00 125 [lb_av] [facility] BMI (Body Mass Index) 2019-12-18 15:45:00 19.0 kg/m2 [facility] Temperature Oral (F) 2016-12-11 20:30:00 98.0 F [facility] Weight 2016-12-11 20:30:00 [facility] Height 2016-12-11 20:30:00 [facility] Rate 2016-12-11 20:30:00 [facility] Diastolic (mm Hg) 2016-12-11 20:30:00 Mem o[facility] Skip Systolic (mm Hg) 2016-12-11 20:30:00 Mp rial Skip Procedures This patient has no known procedures. Plan of Care Planned Activity Planned Date Details Comments Source Instructions COPD [facility] Encounters Start Date/Time End Date/Time Encounter Type Admission Type Attendi [facility] Care Department Encounter ID Source 2020-01-27 20:26:00 2020-01-27 15:56:00 [facility]patient [id number] 2020-01-26 22:40:00 2020-01-27 00:10:00 Departed Emergency Room MALGORZATA CERVANTES [facility] [id number] [facility] 2020-01-12 15:39:00 2020-01-12 15:39:00 Registered Emergency Room [facility] [id number] [facility] 2019-12-18 15:42:00 2019-12-18 19:00:00 Departed Emergency Room 1 NATTY TEE [facility] [id number] [facility] 2019-09-16 18:27:00 2019-09-16 18:27:00 Emergency E [id number] 2018-11-10 18:35:00 2018-11-10 21:35:00 Departed Emergency Room 1 CAMMIE MEJIA [facility] [id number] [facility] 2018-06-09 19:46:00 2018-06-11 07:41:00 Discharged Inpatient 1 FELICIA ALIE [facility] [id number] [facility] 2018-01-28 14:24:00 2018-01-28 17:50:00 Departed Emergency Room 1 FIORDALIZA NICHOLE [facility] [id number] [facility] 2017-07-02 22:33:00 2017-07-03 02:45:00 Departed Emergency Room ER NATTY TEE [facility] [id number] [facility] 2016-12-24 15:40:00 2016-12-24 15:40:00 Outpatient [facility] [id number] [facility] 2016-12-24 10:20:00 2016-12-24 10:20:00 Outpatient [facility] Med [id number] [facility] 2016-12-11 15:30:00 2016-12-11 15:30:00 Outpatient [facility] Med [id number] [facility] Results Test Description Test Time Test Comments Results Result Comments Source B-TYPE NATRIURETIC PEPTIDE 2020-03-16 04:42:00 Test Item B-TYPE NATRIURETIC PEPTIDE (test code = BNP) 36.08 pgram/mL 0-100 N COVID 19 INHOUSE [id number] 03:46:00* Test Item Value Reference Range Interpretation Comments COVID 19 INHOUSE AG (test code = [id number]) NEGATIVE BASIC METABOLIC [id number] 03:41:00* Test Item Value Reference Range Interpretation Comments SODIUM (test code = NA) 136 mmol/L 136-145 N POTASSIUM (test code = K) 4.1 mmol/L 3.5-5.1 N CHLORIDE (test code = CL) 101.0 mmol/L 98-107 N CARBON DIOXIDE (test code = CO2) 27.0 mmol/L 21-32 N ANION GAP (test code = GAP) 12.1 10-20 N GLUCOSE (test code = GLU) 98 mg/dL 74-106 N BLOOD UREA NITROGEN (test code = BUN) 7 mg/dL 7-18 N GLOMERULAR FILTRATION RATE (test code = GFR) > 60 mL/min >=60 Estimated GFR by using Modified MDRD formula.Chronic kidney disease is defined as either kidney damageor GFR <60 mL/min/1.73 m2 for >3 months. CREATININE (test code = CREAT) 0.50 mg/dL 0.55-1.02 L Note change in reference range due to change in reagent. BUN/CREATININE RATIO (test code = BUN/CREA) 13.0 10-20 N CALCIUM (test code = CA) 8.7 mg/dL 8.5-10.1 N [id number] 03:41:00* Test Item Value Reference Range Interpretation Comments TROPONIN-I (test code = TROPI) <0.015 ng/mL 0-0.045 N - XR CHEST 1 [id number] 03:29:00 FAX: Ari Moreno DO [phone] [place]: St: [facility] FAX: Roshan Petty DO Name: VIRA MESSINA [facility] : 1955 Age/S: 64/F [address] [facility] Unit #: [id number] Loc: [place] [address] Phys: Roshan Petty DO Acct: [id number] Dis Date: Status: REG ER PHONE #: [phone] Exam Date: 03/16/20205 FAX #: [phone] Reason: CHEST PAIN EXAMS: CPT CODE: [id number] XR CHEST 1 V 34001 EXAM: - XR CHEST 1 V COMPARISON: 01/27/2020 LOCATION: 7 HISTORY: 64 years-old Female with CHEST PAIN FINDINGS: The cardiomediastinal silhouette is within normal limits. The lungs are well aerated. No large pneumothorax or pleural effusion. Osseous structures and soft tissues demonstrate no acute findings. The visualized upper abdomen is unremarkable. I MPRESSION: No acute cardiopulmonary abnormality. at 0329 Reported and s igned by: Lui Muñoz M.D. CC: Ari Carmichael; Roshan Petty DO Technologist: RT LEO Trnscrd Date/Time/By: 03/16/2020 (328) : By: Fabrizio 1 Orig Print D/T: S: 03/16/2020 (0332) PAGE 1 Signed Report CBC W/O DIFF 2020-03-16 03:08:00* Test Item Value Reference Range Interpretation Comments WHITE BLOOD CELL (test code = WBC) 13.6 K/mm3 4.5-12.5 H RED BLOOD CELL (test code = RBC) 3.85 mill/mm3 3.7-5.2 N HEMOGLOBIN (test code = HGB) 11.2 gram/dL 11.5-15.5 L HEMATOCRIT (test code = HCT) 35.1 % 36.0-46.0 L MEAN CELL VOLUME (test code = MCV) 91.2 fL 80-98 N MEAN CELL HGB (test code = MCH) 29.1 picogram 27.0-33.0 N MEAN CELL HGB CONCETRATION (test code = MCHC) 31.9 gram/dL 33.0-36. 0 L RED CELL DISTRIBUTION WIDTH (test code = RDW) 15.1 % 11.6-16. 2 N PLATELET COUNT (test code = PLT) 336 K/mm3 150-450 N MEAN PLATELET VOLUME (test code = MPV) 9.4 fL 6.7-11.0 N CBC W/O [id number] 03:07:00* Test Item Value Reference Range Interpretation Comments WHITE BLOOD CELL (test code = WBC) K/mm3 4.5-12.5 RED BLOOD CELL (test code = RBC) mill/mm3 3.7-5.2 HEMOGLOBIN (test code = HGB) gram/dL 11.5-15.5 HEMATOCRIT (test code = HCT) % 36.0-46.0 MEAN CELL VOLUME (test code = MCV) fL 80-98 MEAN CELL HGB (test code = MCH) picogram 27.0-33.0 MEAN CELL HGB CONCETRATION (test code = MCHC) gram/dL 33.0-36. 0 RED CELL DISTRIBUTION WIDTH (test code = RDW) % 11.6-16. 2 PLATELET COUNT (test code = PLT) 336 K/mm3 150-450 N MEAN PLATELET VOLUME (test code = MPV) fL 6.7-11.0 B-TYPE NATRIURETIC [id number] 14:27:00* Test Item Value Reference Range Interpretation Comments B-TYPE NATRIURETIC PEPTIDE (test code = BNP) 110.41 pgram/mL 0-100 H Coronavirus 2019 nCoV [id number] 14:21:00* Test Item Value Reference Range Interpretation Comments Coronavirus 2019 nCoV Bedside (test code = [id number]) Negative Is patient requiring admission or transfer? YIndication for rapid COVID-19 testi ng: Mod Clinical SuspicionLACTIC ACID 2020-01-27 13:55:00* Test Item Value Reference Range Interpretation Comments LACTIC ACID (test code = LACT) 2.7 mmol/L 0.4-1.9 HH Results called to AUDI [id number] V.LAB.OA 01/27/20 1354Critical results verified and read back by Nurse? Y BASIC METABOLIC [id number] 13:44:00* Test Item Value Reference Range Interpretation Comments SODIUM (test code = NA) 130 mmol/L 136-145 L POTASSIUM (test code = K) 4.0 mmol/L 3.5-5.1 N CHLORIDE (test code = CL) 98.0 mmol/L 98-107 N CARBON DIOXIDE (test code = CO2) 22.0 mmol/L 21-32 N ANION GAP (test code = GAP) 14.0 10-20 N GLUCOSE (test code = GLU) 150 mg/dL 74-106 H BLOOD UREA NITROGEN (test code = BUN) 12 mg/dL 7-18 N GLOMERULAR FILTRATION RATE (test [...] 10-20 N CALCIUM (test code = CA) 9.1 mg/dL 8.5-10.1 N HEPATIC FUNCTION [id number] 13:44:00* Test Item Value Reference Range Interpretation Comments TOTAL PROTEIN (test code = PROT) 8.0 gram/dL 6.4-8.2 N ALBUMIN (test code = ALB) 3.5 g/dL 3.4-5.0 N GLOBULIN (test code = GLOB) 4.5 gram/dL 2.7-4.2 H ALBUMIN/GLOBULIN RATIO (test code = A/G) 0.8 0.75-1.50 N BILIRUBIN TOTAL (test code = BILT) 0.30 mg/dL 0.0-1.0 N BILIRUBIN DIRECT (test code = BILD) 0.08 mg/dL 0.0-0.20 N SGOT/AST (test code = AST) 17 IUnit/L 15-37 N SGPT/ALT (test code = ALT) 11 IUnit/L 12-78 L ALKALINE PHOSPHATASE TOTAL (test code = ALKP) 86 IUnit/L 45-117 N Note change in reference range due to change in reagent. LACTIC DEHYDROGENASE(LDH)2020-01-27 13:44:00* Test Item Value Reference Range Interpretation Comments LACTIC DEHYDROGENASE(LDH) (test code = LDH) 171 IUnit/L 84-246 N [id number] 13:44:00* Test Item Value Reference Range Interpretation Comments LIPASE (test code = LIP) 35 U/L 73.0-393.0 L [id number] 13:44:00* Test Item Value Reference Range Interpretation Comments TROPONIN-I (test code = TROPI) <0.015 ng/mL 0-0.045 N [id number] 13:44:00* Test Item Value Reference Range Interpretation Comments FERRITIN (test code = ASHOK) 16 ng/mL 8-388 N - XR CHEST 1 [id number] 13:41:00 FAX: Ari Moreno DO [phone] [place]: B : [facility] FAX: Roshan Petty DO Name: VIRA MESSINA [facility] : 1955 Age/S: 64/F [address] Unit #: [id number] Loc: [place] [address] Phys: Roshan Petty DO Acct: [id number] Dis Date: Status: REG ER PHONE #: [phone] Exam Date: 01/27/2020 1325 FAX #: [phone] Reason: SHORTNESS OF BREATH EXAMS: CPT CODE: [id number] XR CHEST 1 V 33886 REASON FOR EXAM: SHORTNESS OF BREATH Exam Order Date: 01/27/2020 12:31 PM Ordering M.D.: Roshan Petty DO PROCEDURE: - XR CHEST 1 V COMPARISON: Chest x-ray January 13, 2020 FINDINGS: The lungs are clear. There is no pleural effusion or pneumothorax. Pulmonary vascularity is within normal limits. Cardiomediastinal silhouette is normal in size for technique. The mediastinal contours are within normal limits. Degenerative changes are present in the spine. There is also hardware in the visualized lumbar spine. The visualized upper abdomen is within normal shore its. IMPRESSION: No acute cardiopulmonary proces s. Location: [facility] at 1341 Reported and signed by: Isaiah Archuleta MD CC: Ari Carmichael; Roshan Petty DO Technologist: MCKENZIE BARROS RT(R) Trnscrd Shama ate/Time/By: 01/27/2020 (8531) : By: [email or web address] Orig Print D/T: S: 01/10 (6472) PAGE 1 Signed Repor t [id number] 13:34:00* Test Item Value Reference Range Interpretation Comments D-DIMER (test code = DDIMER) 973.00 ng/mLFEU 0-500 HH Results called to [id number] by VRACHAEL 01/27/20 1333Critical results verified and read back by Nurse? [...] skin infections -Liver cirrhosis - BASIC METABOLIC [id number] 13:33:00* Test Item Value Reference Range Interpretation Comments SODIUM (test code = NA) 130 mmol/L 136-145 L POTASSIUM (test code = K) 4.0 mmol/L 3.5-5.1 N CHLORIDE (test code = CL) 98.0 mmol/L 98-107 N CARBON DIOXIDE (test code [...] CALCIUM (test code = CA) mg/dL 8.5-10.1 HEPATIC FUNCTION [id number] 13:33:00* Test Item Value Reference Range Interpretation Comments TOTAL PROTEIN (test code = PROT) gram/dL 6.4-8.2 ALBUMIN (test code = ALB) g/dL 3.4-5.0 GLOBULIN (test code = GLOB) gram/dL 2.7-4.2 ALBUMIN/GLOBULIN RATIO (test code = A/G) 0.75-1.50 BILIRUBIN TOTAL (test code = BILT) mg/dL 0.0-1.0 BILIRUBIN DIRECT (test code = BILD) mg/dL 0.0-0.20 SGOT/AST (test code = AST) IUnit/L 15-37 SGPT/ALT (test code = ALT) IUnit/L 12-78 ALKALINE PHOSPHATASE TOTAL (test code = ALKP) IUnit/L 45-117 LACTIC DEHYDROGENASE(LDH)2020-01-27 13:33:00* Test Item Value Reference Range Interpretation Comments LACTIC DEHYDROGENASE(LDH) (test code = LDH) IUnit/L 84-246 [id number] 13:33:00* Test Item Value Reference Range Interpretation Comments LIPASE (test code = LIP) U/L 73.0-393.0 [id number] 13:33:00* Test Item Value Reference Range Interpretation Comments TROPONIN-I (test code = TROPI) ng/mL 0-0.045 [id number] 13:33:00* Test Item Value Reference Range Interpretation Comments FERRITIN (test code = ASHOK) ng/mL 8-388 C REACTIVE [id number] 13:33:00* Test Item Value Reference Range Interpretation Comments C REACTIVE PROTEIN (test code = CRP) <0.29 mg/dL 0-0.3 N CBC W/AUTO [id number] 13:15:00* Test Item Value Reference Range Interpretation Comments WHITE BLOOD CELL (test code = WBC) 12.0 K/mm3 4.5-12.5 N RED BLOOD CELL (test code = RBC) 3.60 mill/mm3 3.7-5.2 L HEMOGLOBIN (test code = HGB) 10.5 gram/dL 11.5-15.5 L HEMATOCRIT (test code = HCT) 32.5 % 36.0-46.0 L MEAN CELL VOLUME (test code = MCV) 90.3 fL 80-98 N MEAN CELL HGB (test code = MCH) 29.2 picogram 27.0-33.0 N MEAN CELL HGB CONCETRATION (test code = MCHC) 32.3 gram/dL 33.0-36. 0 L RED CELL DISTRIBUTION WIDTH (test code = RDW) 14.9 % 11.6-16. 2 N RED CELL DISTRIBUTION WIDTH SD (test code = RDW-SD) 49.1 fL 37 .0-51.0 N PLATELET COUNT (test code = PLT) 275 K/mm3 150-450 N MEAN PLATELET VOLUME (test code = MPV) 9.1 fL 6.7-11.0 N NEUTROPHIL % (test code = NT%) 91.0 % 39.0-69.0 H IMMATURE GRANULOCYTE % (test code = IG%) 0.6 % 0.0-5.0 N LYMPHOCYTE % (test code = LY%) 6.2 % 25.0-55.0 L MONOCYTE % (test code = MO%) 2.1 % 0.0-10.0 N EOSINOPHIL % (test code = EO%) 0.0 % 0.0-5.0 N BASOPHIL % (test code = BA%) 0.1 % 0.0-1.0 N NUCLEATED RBC % (test code = NRBC%) 0.0 % 0-0 N NEUTROPHIL # (test code = NT#) 10.96 K/mm3 1.8-7.7 H IMMATURE GRANULOCYTE # (test code = IG#) 0.07 x10 3/uL 0-0.03 H LYMPHOCYTE # (test code = LY#) 0.75 K/mm3 1.0-5.0 L MONOCYTE # (test code = MO#) 0.25 K/mm3 0-0.8 N EOSINOPHIL # (test code = EO#) 0.00 K/mm3 0.0-0.5 N BASOPHIL # (test code = BA#) 0.01 K/mm3 0.0-0.2 N NUCLEATED RBC # (test code = NRBC#) 0.00 K/mm3 0.0-0.1 N CHEST SINGLE (PORTABLE)2020-01-26 23:17:00 [place] [address] Patient Name: VIRA MESSINA MR #: [id number] : 1955 Age/Sex: 64/F Req #: [id number] Adm Physician: Ordered by: MALGORZATA CERVANTES DO Report #: [id number] Location: ER Room/Bed: Procedure: [id number] DX/CHEST SINGLE (PORTABLE) Exam Date: 01/26/20 Exam Time: 2244 REPORT STATUS: Signed Examination: Si ngle AP view of the chest. COMPARISON: Portable chest 12/18/2019 INDICAT ION: COPD, cough, shortness of breath IMPRESSION: 1. Lines and T ubes: None 2. Lungs are mildly hyperinflated. Mild bronchial wall thickening in the left lower lung, which may reflect bronchitis. No consolidation or effu felipe. 3. Cardiomediastinal silhouette is normal. Pulmonary vasculature is n ormal. 4. No acute bony abnormalities. Signed by: Dr. Trevor Whitney M.D. on 01/26/2020 11:19 PM Dictated By: TREVOR WHITNEY MD 18 Transcribed By: SONAM on 01/10 COPY TO: MALGORZATA CERVANTES DO Blood leukocytes automated count (number/volume)2020-01-26 22:41:00* Test Item Value Reference Range Interpretation Comments White Blood Count (test code = 6690-2) 13.71 4.8-10.8 [facility] count (number/volume)2020-01-26 22:41:00* Test Item Value Reference Range Interpretation Comments Red Blood Count (test code = 789-8) 3.65 3.6-5.1 [facility] measurement (moles/volume)2020-01-26 22:41:00* Test Item Value Reference Range Interpretation Comments Hemoglobin (test code = 71335-9) 10.6 12.0-16.0 [facility] hematocrit (volume fraction)2020-01-26 22:41:00* Test Item Value Reference Range Interpretation Comments Hematocrit (test code = 4544-3) 32.6 34.2-44.1 [facility] erythrocyte mean corpuscular [id number] 22:41:00* Test Item Value Reference Range Interpretation Comments Mean Corpuscular Volume (test code = 787-2) 89.3 81-99 [facility] eryth[facility] mean corpuscular hemoglobin (mass per erythrocyte)2020-01-26 22:41:00* Test Item Value Reference Range Interpretation Comments Mean Corpuscular Hemoglobin (test code = 785-6) 29.0 28-32 [facility] erythrocyte mean corpuscular hemoglobin concentration measurement (mass/volume)2020-01-26 22:41:00* Test Item Value Reference Range Interpretation Comments Mean Corpuscular Hemoglobin Concent (test code = 786-4) 32.5 31-35 [facility] HospitalRDW [id number] 22:41:00* Test Item Value Reference Range Interpretation Comments Red Cell Distribution Width (test code = 97784-7) 15.2 11.7 -14.4 [facility] platelet count (count/volume)2020-01-26 22:41:00* Test Item Value Reference Range Interpretation Comments Platelet Count (test code = 777-3) 270 140-360 [facility] segmented neutrophil count as percentage of total [id number] 22:41:00* Test Item Value Reference Range Interpretation Comments Neutrophils (%) (Auto) (test code = 78574-0) 73.6 38.7-80.0 [facility] lymphocyte count as percentage ot total [id number] 22:41:00* Test Item Value Reference Range Interpretation Comments Lymphocytes (%) (Auto) (test code = 736-9) 18.2 18.0-39.1 [facility] blood monocyte count as percentage of total [id number] 22:41:00* Test Item Value Reference Range Interpretation Comments Monocytes (%) (Auto) (test code = 5905-5) 6.3 4.4-11.3 [facility] blood eosinophil count as percentage of total [id number] 22:41:00* Test Item Value Reference Range Interpretation Comments Eosinophils (%) (Auto) (test code = 713-8) 1.0 0.0-6.0 [facility] blood basophil count as percentage of total [id number] 22:41:00* Test Item Value Reference Range Interpretation Comments Basophils (%) (Auto) (test code = 706-2) 0.4 0.0-1.0 [facility] HospitalFluoroscopic procedure less than one hour [id number] 22:41:00* Test Item Value Reference Range Interpretation Comments IM GRANULOCYTES % (test code = IM GRANULOCYTES %) 0.5 0.0- 1.0 [facility] blood neutrophil count 2020-01-26 22:41:00* Test Item Value Reference Range Interpretation Comments Neutrophils # (Auto) (test code = 751-8) 10.1 2.1-6.9 [facility] lymphocytes count (number/volume) 2020-01-26 22:41:00* Test Item Value Reference Range Interpretation Comments Lymphocytes # (Auto) (test code = 39091-3) 2.5 1.0-3.2 [facility] monocytes automated count (number/volume)2020-01-26 22:41:00* Test Item Value Reference Range Interpretation Comments Monocytes # (Auto) (test code = 742-7) 0.9 0.2-0.8 [facility] blood eosinophil count 2020-01-26 22:41:00* Test Item Value Reference Range Interpretation Comments Eosinophils # (Auto) (test code = 711-2) 0.1 0.0-0.4 [facility] blood basophil count (count/volume)2020-01-26 22:41:00* Test Item Value Reference Range Interpretation Comments Basophils # (Auto) (test code = 704-7) 0.1 0.0-0.1 [facility] HospitalFluoroscopic procedure less than one hour thadckvt6170-05-04 22:41:00* Test Item Value Reference Range Interpretation Comments Absolute Immature Granulocyte (auto (jasvir t code = Absolute Immature Granulocyte (auto) 0.07 0-0.1 [facility] sodium measurement (moles/volume)2020-01-26 22:41:00* Test Item Value Reference Range Interpretation Comments Sodium Level (test code = 2951-2) 132 136-145 [facility] plasma potassium measurement (moles/volume)2020-01-26 22:41:00* Test Item Value Reference Range Interpretation Comments Potassium Level (test code = 2823-3) 4.0 3.5-5.1 [facility] plasma chloride measurement (moles/volume)2020-01-26 22:41:00* Test Item Value Reference Range Interpretation Comments Chloride Level (test code = 2075-0) 97 98-107 [facility] or plasma carbon dioxide, total measurement (moles/volume)2020-01-26 22:41:00* Test Item Value Reference Range Interpretation Comments Carbon Dioxide Level (test code = 2028-9) 27 22-29 [facility] or plasma anion iik6578-54-53 22:41:00* Test Item Value Reference Range Interpretation Comments Anion Gap (test code = 99890-8) 12.0 8-16 [facility] urea nitrogen measurement (mass/volume)2020-01-26 22:41:00* Test Item Value Reference Range Interpretation Comments Blood Urea Nitrogen (test code = 3094-0) 8 7-26 [facility] creatinine measurement (mass/volume)2020-01-26 22:41:00* Test Item Value Reference Range Interpretation Comments Creatinine (test code = 2160-0) 0.69 0.57-1.11 [facility] plasma urea nitrogen/creatinine mass agorq4034-24-96 22:41:00* Test Item Value Reference Range Interpretation Comments BUN/Creatinine Ratio (test code = 3097-3) 12 6-25 [facility] HospitalEstimated glomerular filtration rate (GFR) ofbiljxpxlxst4817-77-04 22:41:00* Test Item Value Reference Range Interpretation Comments Estimat Glomerular Filtration Rate (test code = 561052927) > 60 >60 Ranges were taken from the National Kidney Disease Education Program and the [facility] literature.Reference ranges:60 or greater: Adcvrj44-92 ( for 3 consecutive months): Chronic kidney disease 15 or less: Kidney failureUT Health [facility] Car[facility] HospitalGlucose rlsowthigdo0809-63-18 22:41:00* Test Item Value Reference Range Interpretation Comments Glucose Level (test code = VUZ8871) 100 74-118 [facility] or plasma calcium measurement (mass/volume)2020-01-26 22:41:00* Test Item Value Reference Range Interpretation Comments Calcium Level (test code = 49843-3) 8.8 8.4-10.2 [facility] or plasma total bilirubin measurement (mass/volume)2020-01-26 22:41:00* Test Item Value Reference Range Interpretation Comments Total Bilirubin (test code = 1975-2) 0.2 0.2-1.2 [facility] HospitalFluoroscopic procedure less than one hour bnudghse2694-92-97 22:41:00* Test Item Value Reference Range Interpretation Comments Aspartate Amino Transf (AST/SGOT) (test code = Aspartate Amino Transf (AST/SGOT)) 17 5-34 [facility]er[facility] or plasma alanine aminotransferase measurement (enzymatic activity/volume)2020-01-26 22:41:00* Test Item Value Reference Range Interpretation Comments Alanine Aminotransferase (ALT/SGPT) (test code = 1742-6) 7 0-55 [facility] plasma protein measurement (mass/volume)2020-01-26 22:41:00* Test Item Value Reference Range Interpretation Comments Total Protein (test code = 2885-2) 7.3 6.5-8.1 [facility]er[facility] or plasma albumin measurement (mass/volume)2020-01-26 22:41:00* Test Item Value Reference Range Interpretation Comments Albumin (test code = 1751-7) 3.5 3.5-5.0 [facility] HospitalPlasma globulin measurement (mass/volume) 2020-01-26 22:41:00* Test Item Value Reference Range Interpretation Comments Globulin (test code = 67178-6) 3.8 2.3-3.5 [facility]er[facility] or plasma albumin/globulin mass xsjid5793-72-58 22:41:00* Test Item Value Reference Range Interpretation Comments Albumin/Globulin Ratio (test code = 1759-0) 0.9 0.8-2.0 [facility] or plasma alkaline phosphatase measurement (enzymatic activity/volume)2020-01-26 22:41:00* Test Item Value Reference Range Interpretation Comments Alkaline Phosphatase (test code = 6768-6) 81 40-150 [facility] HospitalBNP Qhq-iOyv2928-61-16 22:41:00* Test Item Value Reference Range Interpretation Comments B-Type Natriuretic Peptide (test code = 95443-7) 14.7 0-100 [facility] HospitalLACTIC YKAN6617-95-60 00:00:00* Test Item Value Reference Range Interpretation Comments LACTIC ACID (test code = LACT) 4.4 mmol/L 0.4-1.9 HH Results called to [id number] by MOLLY 01/14/20 0000Critical results verified and read back by Nurse? Y PATIENT UNDER INVESTIGATION FOR [id number] 19 INHOUSE VL6501-57-58 10:34:00* Test Item Value Reference Range Interpretation Comments COVID 19 INHOUSE AG (test code = [id number]) NEGATIVE Is patient requiring admission or transfer? YIndication for rapid COVID-19 testi ng: Mod Clinical SuspicionPATIENT UNDER I NVESTIGATION FOR [id number] NATRIURETIC OPCCHZZ0360-77-32 08:41:00* Test Item Value Reference Range Interpretation Comments B-TYPE NATRIURETIC PEPTIDE (test code = BNP) 92.8 pgram/mL 0-100 N C REACTIVE LBXIOQB4149-54-29 07:51:00* Test Item Value Reference Range Interpretation Comments C REACTIVE PROTEIN (test code = CRP) <0.29 mg/dL 0-0.3 N - XR CHEST 1 [id number] 07:44:00 FAX: Ari Moreno DO [phone] [place]: B St: ADM FAX: Ghulam Saha MD Name: VIRA MESSINA [facility] : 1955 Age/S: 64/F Eliseo Knowles Unit #: [id number] Loc: [place], [place] [address] Phys: Ghulam Saha MD Acct: [id number] Dis Date: Status: ADM IN PHONE #: [phone] Exam Date: 01/13/2020727 FAX #: [phone] Reason: SHORTNESS OF BREATH EXAMS: CPT CODE: [id number] XR CHEST 1 V 35585 HISTORY: SHORTNESS OF BREATH TECHNIQUE: AP chest x-ray COMPARISON: 11/26/19 FINDINGS: No airspace consolidation or pleural effusion. Normal heart size. Atherosclerotic vascular calcification of the thoracic aorta. Degenerative changes of the spine. IMPRESSION: No radiographic evidence of acute cardiopulmonary process. LOCATION: at 0744 Reported and signed by: Jolene Braun CC: Ari Carmichael; Ghulam Saha MD Technologist: Leatha Singleton) Trnglennyrd Riley te/Time/By: 01/13/2020 (0744) : By: [email or web address] Orig Print D/T: S: 01/12 (0749) PAGE 1 Signed Report LACTIC [id number] 07:42:00* Test Item Value Reference Range Interpretation Comments LACTIC ACID (test code = LACT) 2.1 mmol/L 0.4-1.9 HH Results called to DR SAHA by GIANCARLO 01/13/20 0742Critical results verified and read back by Nurse? Y BASIC METABOLIC [id number] 07:40:00* Test Item Value Reference Range Interpretation Comments SODIUM (test code = NA) 134 mmol/L 136-145 L POTASSIUM (test code = K) 4.0 mmol/L 3.5-5.1 N CHLORIDE (test code = CL) 106.0 mmol/L 98-107 N CARBON DIOXIDE (test code = CO2) 22.0 mmol/L 21-32 N ANION GAP (test code = GAP) 10.0 10-20 N GLUCOSE (test code = GLU) 135 mg/dL 74-106 H BLOOD UREA NITROGEN (test [...] reagent. BUN/CREATININE RATIO (test code = BUN/CREA) 8.5 10-20 L CALCIUM (test code = CA) 9.0 mg/dL 8.5-10.1 N HEPATIC FUNCTION [id number] 07:40:00* Test Item Value Reference Range Interpretation Comments TOTAL PROTEIN (test code = PROT) 7.9 gram/dL 6.4-8.2 N ALBUMIN (test code = ALB) 3.5 g/dL 3.4-5.0 N GLOBULIN (test code = GLOB) 4.4 gram/dL 2.7-4.2 H ALBUMIN/GLOBULIN RATIO (test code = A/G) 0.8 0.75-1.50 N BILIRUBIN TOTAL (test code = BILT) 0.40 mg/dL 0.0-1.0 N BILIRUBIN DIRECT (test code = BILD) 0.12 mg/dL 0.0-0.20 N SGOT/AST (test code = AST) 12 IUnit/L 15-37 L SGPT/ALT (test code = ALT) 10 IUnit/L 12-78 L ALKALINE PHOSPHATASE TOTAL (test code = ALKP) 76 IUnit/L 45-117 N Note change in reference range due to change in reagent. LACTIC DEHYDROGENASE(LDH)2020-01-13 07:40:00* Test Item Value Reference Range Interpretation Comments LACTIC DEHYDROGENASE(LDH) (test code = LDH) 153 IUnit/L 84-246 N [id number] 07:40:00* Test Item Value Reference Range Interpretation Comments LIPASE (test code = LIP) 22 U/L 73.0-393.0 L [id number]-J7037-98-03 07:40:00* Test Item Value Reference Range Interpretation Comments TROPONIN-I (test code = TROPI) <0.015 ng/mL 0-0.045 N [id number] 07:40:00* Test Item Value Reference Range Interpretation Comments FERRITIN (test code = ASHOK) 11 ng/mL 8-388 N BASIC METABOLIC [id number] 07:29:00* Test Item Value Reference Range Interpretation Comments SODIUM (test code = NA) 134 mmol/L 136-145 L POTASSIUM (test code = K) 4.0 mmol/L 3.5-5.1 N CHLORIDE (test code = [...] CALCIUM (test code = CA) mg/dL 8.5-10.1 HEPATIC FUNCTION [id number] 07:29:00* Test Item Value Reference Range Interpretation Comments TOTAL PROTEIN (test code = PROT) gram/dL 6.4-8.2 ALBUMIN (test code = ALB) g/dL 3.4-5.0 GLOBULIN (test code = GLOB) gram/dL 2.7-4.2 ALBUMIN/GLOBULIN RATIO (test code = A/G) 0.75-1.50 BILIRUBIN TOTAL (test code = BILT) mg/dL 0.0-1.0 BILIRUBIN DIRECT (test code = BILD) mg/dL 0.0-0.20 SGOT/AST (test code = AST) IUnit/L 15-37 SGPT/ALT (test code = ALT) IUnit/L 12-78 ALKALINE PHOSPHATASE TOTAL (test code = ALKP) IUnit/L 45-117 LACTIC DEHYDROGENASE(LDH)2020-01-13 07:29:00* Test Item Value Reference Range Interpretation Comments LACTIC DEHYDROGENASE(LDH) (test code = LDH) IUnit/L 84-246 [id number] 07:29:00* Test Item Value Reference Range Interpretation Comments LIPASE (test code = LIP) U/L 73.0-393.0 [id number] 07:29:00* Test Item Value Reference Range Interpretation Comments TROPONIN-I (test code = TROPI) ng/mL 0-0.045 [id number] 07:29:00* Test Item Value Reference Range Interpretation Comments FERRITIN (test code = ASHOK) ng/mL 8-388 CBC W/AUTO [id number] 06:36:00* Test Item Value Reference Range Interpretation Comments WHITE BLOOD CELL (test code = WBC) 6.2 K/mm3 4.5-12.5 N RED BLOOD CELL (test code = RBC) 3.97 mill/mm3 3.7-5.2 N HEMOGLOBIN (test code = HGB) 11.8 gram/dL 11.5-15.5 N HEMATOCRIT (test code = HCT) 35.7 % 36.0-46.0 L MEAN CELL VOLUME (test code = MCV) 89.9 fL 80-98 N MEAN CELL HGB (test code = MCH) 29.7 picogram 27.0-33.0 N MEAN CELL HGB CONCETRATION (test code = MCHC) 33.1 gram/dL 33.0-36. 0 N RED CELL DISTRIBUTION WIDTH (test code = RDW) 14.9 % 11.6-16. 2 N RED CELL DISTRIBUTION WIDTH SD (test code = RDW-SD) 48.9 fL 37 .0-51.0 N PLATELET COUNT (test code = PLT) 322 K/mm3 150-450 N MEAN PLATELET VOLUME (test code = MPV) 9.3 fL 6.7-11.0 N NEUTROPHIL % (test code = NT%) 81.6 % 39.0-69.0 H IMMATURE GRANULOCYTE % (test code = IG%) 0.5 % 0.0-5.0 N LYMPHOCYTE % (test code = LY%) 15.4 % 25.0-55.0 L MONOCYTE % (test code = MO%) 2.3 % 0.0-10.0 N EOSINOPHIL % (test code = EO%) 0.0 % 0.0-5.0 N BASOPHIL % (test code = BA%) 0.2 % 0.0-1.0 N NUCLEATED RBC % (test code = NRBC%) 0.0 % 0-0 N NEUTROPHIL # (test code = NT#) 5.05 K/mm3 1.8-7.7 N IMMATURE GRANULOCYTE # (test code = IG#) 0.03 x10 3/uL 0-0.03 N LYMPHOCYTE # (test code = LY#) 0.95 K/mm3 1.0-5.0 L MONOCYTE # (test code = MO#) 0.14 K/mm3 0-0.8 N EOSINOPHIL # (test code = EO#) 0.00 K/mm3 0.0-0.5 N BASOPHIL # (test code = BA#) 0.01 K/mm3 0.0-0.2 N NUCLEATED RBC # (test code = NRBC#) 0.00 K/mm3 0.0-0.1 N MANUAL DIFF REQUIRED (test code = MDIFF) NO CHEST SINGLE (PORTABLE)2019-12-18 17:25:00 [place] [address] Patient Name: VIRA MESSINA MR #: [id number] : 1955 Age/Sex: 64/F Req #: [id number] Adm Physician: Ordered by: NATTY TEE MD Report #: [id number] Location: ER Room/Bed: Procedure: [id number] DX/CHEST SINGLE (PORTABLE) Exam Date: 12/18/19 Exam Time: 1656 REPORT STATUS: Signed EXAMINATION: CHEST SINGLE (PORTABLE) INDICATION: SOB WHEEZING, COPD COMPARISON: Chest radiograph 11/10/[address] chest 11/10/2018. FINDINGS: TUBES a nd LINES: None. LUNGS: Emphysematous lungs with mild hyperinflation. Mild bronchial wall thickening. Mild patchy right basilar opacity. No evidence of lobar consolidation. PLEURA: No pleural effusion or pneumothorax. HEART AND MEDIASTINUM: The cardiomediastinal silhouette is unremarkable. BONES AND SOFT TISSUES: No acute osseous abnormality. Partially seen lumbar spine fixation hardware. UPPER ABDOMEN: No free air under the diaphragm. IMPRESSION: Emphysematous lungs with mild patchy right basilar opac ity, likely atelectasis, although infection is possible in the appropriate cli nical setting. Mild bronchial wall thickening, suggestive of bronchitis in the setting of cough. Signed by: Dr. Wade Martinez MD on 12/18/2019 5:27 PM Dictated By: WADE MARTINEZ MD 26 Transcribed By: SONAM on 12/18/191726 COPY TO: NATTY TEE MD Blood leukocytes automated count (number/volume)2019-12-18 16:09:00* Test Item Value Reference Range Interpretation Comments White Blood Count (test code = 6690-2) 6.42 4.8-10.8 [facility] HospitalBlood erythrocytes automated count (number/volume)2019-12-18 16:09:00* Test Item Value Reference Range Interpretation Comments Red Blood Count (test code = 789-8) 4.12 3.6-5.1 [facility] HospitalBlood hemoglobin measurement (moles/volume)2019-12-18 16:09:00* Test Item Value Reference Range Interpretation Comments Hemoglobin (test code = 19662-7) 11.8 12.0-16.0 [facility] HospitalAutomated blood hematocrit (volume fraction)2019-12-18 16:09:00* Test Item Value Reference Range Interpretation Comments Hematocrit (test code = 4544-3) 37.0 34.2-44.1 [facility] HospitalAutomated erythrocyte mean corpuscular qldhqt9140-69-31 16:09:00* Test Item Value Reference Range Interpretation Comments Mean Corpuscular Volume (test code = 787-2) 89.8 81-99 [facility] HospitalAutomated erythrocyte mean corpuscular hemoglobin (mass per erythrocyte)2019-12-18 16:09:00* Test Item Value Reference Range Interpretation Comments Mean Corpuscular Hemoglobin (test code = 785-6) 28.6 28-32 [facility] HospitalAutomated erythrocyte mean corpuscular hemoglobin concentration measurement (mass/volume)2019-12-18 16:09:00* Test Item Value Reference Range Interpretation Comments Mean Corpuscular Hemoglobin Concent (test code = 786-4) 31.9 31-35 [facility] HospitalRDW QjsIl-Kun2246-50-07 16:09:00* Test Item Value Reference Range Interpretation Comments Red Cell Distribution Width (test code = 11243-2) 14.5 11.7 -14.4 [facility] HospitalAutomated blood platelet count (count/volume)2019-12-18 16:09:00* Test Item Value Reference Range Interpretation Comments Platelet Count (test code = 777-3) 291 140-360 [facility] HospitalAutomated blood segmented neutrophil count as percentage of total qxyewudzco1609-56-39 16:09:00* Test Item Value Reference Range Interpretation Comments Neutrophils (%) (Auto) (test code = 57911-5) 41.7 38.7-80.0 [facility] HospitalAutomated blood lymphocyte count as percentage ot total ynhcqrbmba4484-33-15 16:09:00* Test Item Value Reference Range Interpretation Comments Lymphocytes (%) (Auto) (test code = 736-9) 44.5 18.0-39.1 [facility] HospitalAutomated blood monocyte count as percentage of total emgjsusbav8771-72-87 16:09:00* Test Item Value Reference Range Interpretation Comments Monocytes (%) (Auto) (test code = 5905-5) 11.4 4.4-11.3 [facility] HospitalAutomated blood eosinophil count as percentage of total neaxdumjsp2989-71-44 16:09:00* Test Item Value Reference Range Interpretation Comments Eosinophils (%) (Auto) (test code = 713-8) 1.6 0.0-6.0 [facility] HospitalAutomated blood basophil count as percentage of total wowgssemza7762-28-50 16:09:00* Test Item Value Reference Range Interpretation Comments Basophils (%) (Auto) (test code = 706-2) 0.6 0.0-1.0 [facility] HospitalFluoroscopic procedure less than one hour nqeqpdkt1260-52-95 16:09:00* Test Item Value Reference Range Interpretation Comments IM GRANULOCYTES % (test code = IM GRANULOCYTES %) 0.2 0.0- 1.0 [facility] HospitalAutomated blood neutrophil count 2019-12-18 16:09:00* Test Item Value Reference Range Interpretation Comments Neutrophils # (Auto) (test code = 751-8) 2.7 2.1-6.9 [facility] HospitalBlood lymphocytes count (number/volume) 2019-12-18 16:09:00* Test Item Value Reference Range Interpretation Comments Lymphocytes # (Auto) (test code = 52658-6) 2.9 1.0-3.2 [facility] HospitalBlood monocytes automated count (number/volume)2019-12-18 16:09:00* Test Item Value Reference Range Interpretation Comments Monocytes # (Auto) (test code = 742-7) 0.7 0.2-0.8 [facility] HospitalAutomated blood eosinophil count 2019-12-18 16:09:00* Test Item Value Reference Range Interpretation Comments Eosinophils # (Auto) (test code = 711-2) 0.1 0.0-0.4 [facility] HospitalAutomated blood basophil count (count/volume)2019-12-18 16:09:00* Test Item Value Reference Range Interpretation Comments Basophils # (Auto) (test code = 704-7) 0.0 0.0-0.1 [facility] HospitalFluoroscopic procedure less than one hour rkuolouz2467-03-85 16:09:00* Test Item Value Reference Range Interpretation Comments Absolute Immature Granulocyte (auto (jasvir t code = Absolute Immature Granulocyte (auto) 0.01 0-0.1 [facility] HospitalProthrombin time (PT) in platelet poor plasma by coagulation dbvvc9659-76-24 16:09:00* Test Item Value Reference Range Interpretation Comments Prothrombin Time (test code = 5902-2) 11.4 11.9-14.5 [facility] HospitalINR in Platelet poor plasma by Coagulation oiace2720-46-30 16:09:00* Test Item Value Reference Range Interpretation Comments Prothromb Time International Ratio (test code = 6301-6) 0.79 Oral Anticoagulant Therapy INR Values:1. Low Intensity Therapy 1.5 - 2.02 . Moderate Intensity Therapy 2.0 - 3.03. High Intensity Therapy(1) 2.5 - 3. 54. High Intensity Therapy(2) 3.0 - 4.05. Panic Value INR > 5.0 [facility] HospitalActivated partial thromboplastin time (aPTT) in platelet poor plasma by coagulation dchri7528-94-90 16:09:00* Test Item Value Reference Range Interpretation Comments Activated Partial Thromboplast Time (test code = 01707-1) 32.4 23.8-35.5 [facility] plasma sodium measurement (moles/volume)2019-12-18 16:09:00* Test Item Value Reference Range Interpretation Comments Sodium Level (test code = 2951-2) 137 136-145 [facility] Systemer[facility] or plasma potassium measurement (moles/volume)2019-12-18 16:09:00* Test Item Value Reference Range Interpretation Comments Potassium Level (test code = 2823-3) 4.3 3.5-5.1 [facility] Systemer[facility] or plasma chloride measurement (moles/volume)2019-12-18 16:09:00* Test Item Value Reference Range Interpretation Comments Chloride Level (test code = 2075-0) 105 98-107 [facility] Systemer[facility] or plasma carbon dioxide, total measurement (moles/volume)2019-12-18 16:09:00* Test Item Value Reference Range Interpretation Comments Carbon Dioxide Level (test code = 2028-9) 25 22-29 [facility] Systemer[facility] or plasma anion qaf5154-20-46 16:09:00* Test Item Value Reference Range Interpretation Comments Anion Gap (test code = 69058-1) 11.3 8-16 [facility]er[facility] or plasma urea nitrogen measurement (mass/volume)2019-12-18 16:09:00* Test Item Value Reference Range Interpretation Comments Blood Urea Nitrogen (test code = 3094-0) 7 7-26 [facility]er[facility] or plasma creatinine measurement (mass/volume)2019-12-18 16:09:00* Test Item Value Reference Range Interpretation Comments Creatinine (test code = 2160-0) 0.69 0.57-1.11 [facility] Systemer[facility] or plasma urea nitrogen/creatinine mass cimrc9698-96-41 16:09:00* Test Item Value Reference Range Interpretation Comments BUN/Creatinine Ratio (test code = 3097-3) 10 6-25 [facility] HospitalEstimated glomerular filtration rate (GFR) nwbpebjjlbifn9781-39-33 16:09:00* Test Item Value Reference Range Interpretation Comments Estimat Glomerular Filtration Rate (test code = 528660700) > 60 >60 Ranges were taken from the National Kidney Disease Education Program and the [facility] Kidney Foundation literature.Reference ranges:60 or greater: Toactj36-04 ( for 3 consecutive months): Chronic kidney disease 15 or less: Kidney failureUT Health East [facility] Carth[facility] HospitalGlucose afpvawxyuxr7700-88-77 16:09:00* Test Item Value Reference Range Interpretation Comments Glucose Level (test code = APN8455) 100 74-118 [facility] Systemer[facility] or plasma calcium measurement (mass/volume)2019-12-18 16:09:00* Test Item Value Reference Range Interpretation Comments Calcium Level (test code = 32510-7) 9.2 8.4-10.2 [facility] Systemer[facility] or plasma total bilirubin measurement (mass/volume)2019-12-18 16:09:00* Test Item Value Reference Range Interpretation Comments Total Bilirubin (test code = 1975-2) 0.2 0.2-1.2 [facility] HospitalFluoroscopic procedure less than one hour ysikzaal0591-84-96 16:09:00* Test Item Value Reference Range Interpretation Comments Aspartate Amino Transf (AST/SGOT) (test code = Aspartate Amino Transf (AST/SGOT)) 16 5-34 [facility] Systemerum or plasma alanine aminotransferase measurement (enzymatic activity/volume)2019-12-18 16:09:00* Test Item Value Reference Range Interpretation Comments Alanine Aminotransferase (ALT/SGPT) (test code = 1742-6) < 6 0-55 [facility] Systemerum or plasma protein measurement (mass/volume)2019-12-18 16:09:00* Test Item Value Reference Range Interpretation Comments Total Protein (test code = 2885-2) 7.1 6.5-8.1 [facility] Systemerum or plasma albumin measurement (mass/volume)2019-12-18 16:09:00* Test Item Value Reference Range Interpretation Comments Albumin (test code = 1751-7) 3.6 3.5-5.0 [facility] HospitalPlasma globulin measurement (mass/volume) 2019-12-18 16:09:00* Test Item Value Reference Range Interpretation Comments Globulin (test code = 74620-0) 3.5 2.3-3.5 [facility] Systemerum or plasma albumin/globulin mass lgwlh7786-40-72 16:09:00* Test Item Value Reference Range Interpretation Comments Albumin/Globulin Ratio (test code = 1759-0) 1.0 0.8-2.0 [facility] Systemerum or plasma alkaline phosphatase measurement (enzymatic activity/volume)2019-12-18 16:09:00* Test Item Value Reference Range Interpretation Comments Alkaline Phosphatase (test code = 6768-6) 88 40-150 [facility] HospitalBNP Igj-tHaq0877-20-07 16:09:00* Test Item Value Reference Range Interpretation Comments B-Type Natriuretic Peptide (test code = 53184-0) < 10.0 0-100 [facility] Systemerum or plasma creatine kinase measurement (enzymatic activity/volume)2019-12-18 16:09:00* Test Item Value Reference Range Interpretation Comments Creatine Kinase (test code = 2157-6) 46 29-168 [facility] Systemerum or plasma creatine kinase MB measurement (mass/volume)2019-12-18 16:09:00* Test Item Value Reference Range Interpretation Comments Creatine Kinase MB (test code = 96595-3) 0.70 0-5.0 [facility] HospitalTroponin I measurement by highly sensitive enzyme nvinvndlylo9451-09-62 16:09:00* Test Item Value Reference Range Interpretation Comments Troponin I (test code = 23910-2) < 0.001 0-0.300 [facility] HospitalProthrombin time (PT) in platelet poor plasma by coagulation ddobm1113-58-44 16:09:00* Test Item Value Reference Range Interpretation Comments Prothrombin Time (test code = 5902-2) 11.4 11.9-14.5 [facility] [facility] Platelet poor plasma by Coagulation [id number] 16:09:00* Test Item Value Reference Range Interpretation Comments Prothromb Time International Ratio (test code = 6301-6) 0.79 Oral Anticoagulant Therapy INR Values:1. Low Intensity Therapy 1.5 - 2.02 . Moderate Intensity Therapy 2.0 - 3.03. High Intensity Therapy(1) 2.5 - 3. 54. High Intensity Therapy(2) 3.0 - 4.05. Panic Value INR > 5.0 [facility]Act[facility] partial thromboplastin time (aPTT) in platelet poor plasma by coagulation zcmjh8743-01-08 16:09:00* Test Item Value Reference Range Interpretation Comments Activated Partial Thromboplast Time (test code = 35241-6) 32.4 23.8-35.5 [facility] creatine kinase measurement (enzymatic activity/volume)2019-12-18 16:09:00* Test Item Value Reference Range Interpretation Comments Creatine Kinase (test code = 2157-6) 46 29-168 [facility] plasma creatine kinase MB measurement (mass/volume)2019-12-18 16:09:00* Test Item Value Reference Range Interpretation Comments Creatine Kinase MB (test code = 45442-2) 0.70 0-5.0 [facility] HospitalTroponin I measurement by highly sensitive enzyme vwkirsacgsh9929-50-51 16:09:00* Test Item Value Reference Range Interpretation Comments Troponin I (test code = 63803-8) < 0.001 0-0.300 [facility] HospitalMAGNESIUM2020-05-16 22:06:00* Test Item Value Reference Range Interpretation Comments MAGNESIUM (test code = MAG) 1.8 mg/dL 1.8-2.4 N B-TYPE NATRIURETIC [id number] 20:39:00* Test Item Value Reference Range Interpretation Comments B-TYPE NATRIURETIC PEPTIDE (test code = BNP) 45.41 pgram/mL 0-100 N BASIC METABOLIC [id number] 20:27:00* Test Item Value Reference Range Interpretation [...] code = CA) 9.0 mg/dL 8.5-10.1 N [id number] 20:27:00* Test Item Value Reference Range Interpretation Comments TROPONIN-I (test code = TROPI) <0.015 ng/mL 0-0.045 N [id number] 20:24:00* Test Item Value Reference Range Interpretation Comments D-DIMER (test code = DDIMER) 657.00 ng/mLFEU 0-500 HH Results called to [id number] by CHARLIE 11/26/19 2022Critical results verified and read back by Nurse? [...] skin infections -Liver cirrhosis - BASIC METABOLIC [id number] 20:13:00* Test Item Value Reference Range Interpretation [...] CALCIUM (test code = CA) mg/dL 8.5-10.1 [id number] 20:13:00* Test Item Value Reference Range Interpretation Comments TROPONIN-I (test code = TROPI) ng/mL 0-0.045 CBC W/O [id number] 20:06:00* Test Item Value Reference Range Interpretation [...] MPV) 9.2 fL 6.7-11.0 N CBC W/O [id number] 20:00:00* Test Item Value Reference Range Interpretation [...] (test code = MPV) fL 6.7-11.0 Coronavirus 2018 nCoV Dijyrcv9559-95-90 19:16:00* Test Item Value Reference Range Interpretation Comments Coronavirus 2019 nCoV Bedside (test code = [id number]) Negative Is patient requiring admission or transfer? YIndication for rapid COVID-19 testi ng: Mod Clinical Suspicion- XR CHEST 1 V 2019-11-26 18:21:00 FAX: Ari Moreno DO [phone] [place]: B St: PRE FAX: Junior Corea MD [phone] Name: VIRA MESSINA [facility] : 1955 Age/S: 64/F [address] Unit #: [id number] Loc: [place] [address] Phys: Junior Corea MD Acct: [id number] Dis Date: Status: PRE ER PHONE #: [phone] Exam Date: 11/26/2019 1813 FAX #: [phone] Reason: Shortness of Breath EXAMS: CPT CODE: [id number] XR CHEST 1 V 72197 REASON FOR EXAM: Shortness of Breath Exam Order Date: 11/26/2019 5:44 PM Ordering MSapna: Junior Corea MD PROCEDURE: - XR CHEST [...] IMPRESSION: No acute cardiopulm onary process. Location: [facility] at 182 Reported and si gned by: Rafita Archuleta MD CC: Ari Carmichael; Junior Corea MD Technologist: RT NAZ(R) Trnscrd Date/Time/By: 11/26/2019 (1820) : By: [email or web address] Orig Print D/T: S: 11/26/2019 (1823) PAGE 1 Signed Report BASIC METABOLIC [id number] 14:04:00* Test Item Value Reference Range Interpretation [...] mg/dL 8.5-10.1 N [V.LAB.SP3 07/03/19 0536]CBC W/AUTO [id number] 12:59:00* Test Item Value Reference Range Interpretation [...] K/mm3 0.0-0.1 N [V.LAB.SP3 07/03/19 0536]B-TYPE NATRIURETIC [id number] 14:39:00* Test Item Value Reference Range Interpretation Comments B-TYPE NATRIURETIC PEPTIDE (test code = BNP) 144.74 pgram/mL 0-100 H BASIC METABOLIC [id number] 14:14:00* Test Item Value Reference Range Interpretation [...] code = CA) 8.9 mg/dL 8.5-10.1 N [id number]-[id number] 14:14:00* Test Item Value Reference Range Interpretation Comments TROPONIN-I (test code = TROPI) <0.015 ng/mL 0-0.045 N BASIC METABOLIC [id number] 14:04:00* Test Item Value Reference Range Interpretation [...] code = CA) 8.9 mg/dL 8.5-10.1 N [id number]-[id number] 14:04:00* Test Item Value Reference Range Interpretation Comments TROPONIN-I (test code = TROPI) ng/mL 0-0.045 BASIC METABOLIC [id number] 14:03:00* Test Item Value Reference Range Interpretation [...] CALCIUM (test code = CA) mg/dL 8.5-10.1 [id number] 14:03:00* Test Item Value Reference Range Interpretation Comments TROPONIN-I (test code = TROPI) ng/mL 0-0.045 CBC W/O [id number] 14:00:00* Test Item Value Reference Range Interpretation [...] MPV) 9.2 fL 6.7-11.0 N VENOUS BLOOD [id number] 13:32:00* Test Item Value Reference Range Interpretation [...] by dioni 13:32 - 07/02/2019; by garcia weaver METHEMOGLOBIN (test code = METHGB) 0.3 % 0.0-1.50 N - XR CHEST 1 [id number] 13:11:00 FAX: Ari Moreno [phone] [place]: St: REG FAX: Ghulam Saha MD Name: VIRA MESSINA [facility] : 1955 Age/S: 64/F [address] [facility] Unit #: [id number] Loc: [place] [address] Phys: Ghulam Saha MD Acct: [id number] Dis Date: Status: REG ER PHONE #: [phone] Exam Date: 07/02/2019 1305 FAX #: [phone] Reason: Shortness of Breath EXAMS: CPT CODE: [id number] XR CHEST 1 V 84060 REASON FOR EXAM: Shortness of Breath EXAM ORDER DATE: 07/02/2019 12:48 PM Ordering: Ghulam Saha MD Attending:Ghulam Saha MD Location: PROCEDURE: - XR CHEST 1 V COMPARISON: 06/29/2019 FINDINGS: Portable AP frontal view of the chest obtained at 1:05 PM shows clear lungs without evidence of consolidation. There is no evidence of effusion. The heart size is within normal limits. Pulmonary vasculatures are unremarkable. IMPRESSION: No active disease. at 1311 Reported and signed by: Jj Russell M.D. CC: Ari Carmichael; Ghulam Saha MD Technologist: GONZALES AC RT(R) Trnvtrd Date/Time/By: 07/02/2019 (2323) : By: AmandaR.VTL Orig Print D/T: S: 07/02/2019 (0727) PAGE 1 Signed Report BASIC METABOLIC [id number] 02:56:00* Test Item Value Reference Range Interpretation [...] CA) 8.6 mg/dL 8.5-10.1 N BASIC METABOLIC [id number] 02:50:00* Test Item Value Reference Range Interpretation [...] code = CA) mg/dL 8.5-10.1 CBC W/AUTO [id number] 02:35:00* Test Item Value Reference Range Interpretation [...] code = NRBC#) 0.00 K/mm3 0.0-0.1 N [id number] 20:01:00* Test Item Value Reference Range Interpretation Comments GLUBED (test code = GLUBED) 161 mg/dL 74-106 H Performed by certified timing machine operator at [facility] CREATINE KINASE (CK)2019-06-30 12:22:00* Test Item Value Reference Range Interpretation Comments CREATINE KINASE (CK) (test code = CK) 39 IUnit/L 26-208 N LACTIC DEHYDROGENASE(LDH)2019-06-30 12:22:00* Test Item Value Reference Range Interpretation Comments LACTIC DEHYDROGENASE(LDH) (test code = LDH) 124 IUnit/L 84-246 N FOLIC [id number] 12:22:00* Test Item Value Reference Range Interpretation Comments FOLIC ACID (test code = FOL) 8.0 ng/mL 3.10-17.50 N [id number] 12:22:00* Test Item Value Reference Range Interpretation Comments FERRITIN (test code = ASHOK) 40 ng/mL 8-388 N [id number] 12:14:00* Test Item Value Reference Range Interpretation Comments GLYCOSYLATED HEMOGLOBIN (HA1C) (test code = GLYHGB) 5.5 % HbA1 SUGGESTED DIAGNOSIS: HbA1C (%) Diabetic >6.4Prediabetes 5.7 - 6.4Normal <5.7 ESTIMATED AVERAGE GLUCOSE (test code = EAG) 111 MG/DL B-TYPE NATRIURETIC [id number] 12:12:00* Test Item Value Reference Range Interpretation Comments B-TYPE NATRIURETIC PEPTIDE (test code = BNP) 104.46 pgram/mL 0-100 H C REACTIVE [id number] 12:07:00* Test Item Value Reference Range Interpretation Comments C REACTIVE PROTEIN (test code = CRP) 0.98 mg/dL 0-0.3 H LACTIC [id number] 20:36:00* Test Item Value Reference Range Interpretation Comments LACTIC ACID (test code = LACT) 1.4 mmol/L 0.4-1.9 N BASIC METABOLIC [id number] 19:52:00* Test Item Value Reference Range Interpretation [...] code = CA) 8.9 mg/dL 8.5-10.1 N [id number] 19:52:00* Test Item Value Reference Range Interpretation Comments TROPONIN-I (test code = TROPI) <0.015 ng/mL 0-0.045 N BASIC METABOLIC [id number] 19:47:00* Test Item Value Reference Range Interpretation [...] code = CA) 8.9 mg/dL 8.5-10.1 N [id number] 19:47:00* Test Item Value Reference Range Interpretation Comments TROPONIN-I (test code = TROPI) ng/mL 0-0.045 CBC W/O [id number] 19:46:00* Test Item Value Reference Range Interpretation [...] MPV) 8.9 fL 6.7-11.0 N CBC W/O [id number] 19:42:00* Test Item Value Reference Range Interpretation [...] MPV) fL 6.7-11.0 - XR CHEST 1 [id number] 19:26:00 FAX: Surjit Curtis [phone] [place]: St: REG FAX: Y Ari Carmichael DO [phone] Name: VIRA MESSINA [facility] : 1955 Age/S: 64/F [address] [facility] Unit #: [id number] Loc: [place] [address] Phys: Surjit Finn MD Acct: [id number] Dis Date: Status: REG ER PHONE #: [phone] Exam Date: 06/29/2019 1846 FAX #: [phone] Reason: Shortness of Breath EXAMS: CPT CODE: [id number] XR CHEST 1 V 82453 EXAM: Chest x-ray, one view; INFORMATION: Shortness of breath; IMPRESSION: 1. No evidence of active cardiopulmonary disease. 2. No significant change compared with a study from May 12, 2019. Aortic calcifications. Location code: [facility] at 1926 Reported and signed by: Adam Beckett M.D. CC: Surjit Finn MD; Ari Carmichael Technologist: MIKAYLA RATLIFF RT (R); ... Trnscrd Date/Time/By: 06/29/2019 (1925) : By: AndreeaGRW Orig Print D/T: S: 06/29/2019 (1928) PAGE 1 Signed Report DRUGS OF ABUSE SCREEN [id number] 20:48:00* Test Item Value Reference Range Interpretation [...] NEGATIVE <300 ng/mL 1732]DRUGS OF ABUSE SCREEN [id number] 20:06:00* Test Item Value Reference Range Interpretation [...] (test code = [place]) NEGATIVE <300 ng/mL 1732]YCKFKF5177-57-64 21:14:00* Test Item Value Reference Range Interpretation Comments GLUBED (test code = GLUBED) 96 mg/dL 74-106 N Performed by certified timing machine operator at [facility] [id number] 17:19:00* Test Item Value Reference Range Interpretation [...] ANADDITIONAL CHARGE TO THE PATIENT. B-TYPE NATRIURETIC [id number] 16:06:00* Test Item Value Reference Range Interpretation Comments B-TYPE NATRIURETIC PEPTIDE (test code = BNP) 28.85 pgram/mL 0-100 N BASIC METABOLIC [id number] 16:01:00* Test Item Value Reference Range Interpretation [...] code = CA) 9.8 mg/dL 8.5-10.1 N [id number] 16:01:00* Test Item Value Reference Range Interpretation Comments TROPONIN-I (test code = TROPI) <0.015 ng/mL 0-0.045 N LACTIC [id number] 15:51:00* Test Item Value Reference Range Interpretation Comments LACTIC ACID (test code = LACT) 0.8 mmol/L 0.4-1.9 N BASIC METABOLIC [id number] 15:47:00* Test Item Value Reference Range Interpretation [...] CALCIUM (test code = CA) mg/dL 8.5-10.1 [id number]-[id number] 15:47:00* Test Item Value Reference Range Interpretation Comments TROPONIN-I (test code = TROPI) ng/mL 0-0.045 CBC W/O [id number] 15:37:00* Test Item Value Reference Range Interpretation [...] MPV) 9.0 fL 6.7-11.0 N CBC W/O [id number] 15:36:00* Test Item Value Reference Range Interpretation [...] MPV) fL 6.7-11.0 - XR CHEST 1 [id number] 14:22:00 FAX: Roshan Petty DO [place]: [address]: REG Name: VIRA PUGH [facility] : [birth year] Age/S: 64/F [address] Unit #: [id number] Loc: [place], [place] [address] Phys: Roshan Petty DO Acct: [id number] Dis Date: Status: REG ER PHONE #: [phone] Exam Date: 05/12/2019 1350 FAX #: [phone] Reason: Shortness of Breath EXAMS: CPT CODE: [id number] XR CHEST 1 V 44909 REASON FOR EXAM: Shortness of Breath Exam Order Date: 05/12/2019 1:33 PM Ordering M.D.: Roshan Petty DO PROCEDURE: - XR CHEST [...] appears similar to the previous exam. Location: [facility] at 1422 Reported and signed by: Rafita Archuleta MD CC: Roshan Petty DO Technologist: ESTEFANI MCGHEE RT(R) Trnscrd Date/Time/By: 05/12/20 19 (5913) : By: AndreeaRR31 Orig Print D/T: S: 05/12/2019 (1659) PAGE 1 Signed Report CBC W/AUTO [id number] 04:59:00* Test Item Value Reference Range Interpretation [...] = MDIFF) NO, ONLY SCAN NEEDED DIFFERENTIAL [id number] 04:59:00* Test Item Value Reference Range Interpretation Comments STAIN ACCEPTABILITY (test code = STN ACCEPTABLE) STAIN ACCEPTABLE ANISOCYTOSIS (test code = ANISO) 1+ MACROCYTOSIS (test code = MACR) 1+ PLATELET ESTIMATE (test code = PLTEST) ADEQUATE PLATELET MORPHOLOGY (test code = PLTMORPH) NORMAL [id number] 04:15:00* Test Item Value Reference Range Interpretation Comments TROPONIN-I (test code = TROPI) <0.015 ng/mL 0-0.045 N BASIC METABOLIC [id number] 04:13:00* Test Item Value Reference Range Interpretation [...] CA) 9.2 mg/dL 8.5-10.1 N CBC W/AUTO [id number] 03:51:00* Test Item Value Reference Range Interpretation [...] = MDIFF) NO, ONLY SCAN NEEDED DIFFERENTIAL [id number] 03:51:00* Test Item Value Reference Range Interpretation Comments STAIN ACCEPTABILITY (test code = STN ACCEPTABLE) MORPHOLOGY COMMENT (test code = MOC) PLATELET ESTIMATE (test code = PLTEST) PLATELET MORPHOLOGY (test code = PLTMORPH) CBC W/AUTO [id number] 03:49:00* Test Item Value Reference Range Interpretation [...] = MDIFF) NO, ONLY SCAN NEEDED DIFFERENTIAL [id number] 03:49:00* Test Item Value Reference Range Interpretation Comments STAIN ACCEPTABILITY (test code = STN ACCEPTABLE) CABOT RINGS (test code = CAB) MORPHOLOGY COMMENT (test code = MOC) PLATELET ESTIMATE (test code = PLTEST) PLATELET MORPHOLOGY (test code = PLTMORPH) CBC W/AUTO [id number] 03:49:00* Test Item Value Reference Range Interpretation [...] = MDIFF) NO, ONLY SCAN NEEDED DIFFERENTIAL [id number] 03:49:00* Test Item Value Reference Range Interpretation Comments STAIN ACCEPTABILITY (test code = STN ACCEPTABLE) MORPHOLOGY COMMENT (test code = MOC) PLATELET ESTIMATE (test code = PLTEST) PLATELET MORPHOLOGY (test code = PLTMORPH) CBC W/AUTO [id number] 03:49:00* Test Item Value Reference Range Interpretation [...] = MDIFF) NO, ONLY SCAN NEEDED DIFFERENTIAL [id number] 03:49:00* Test Item Value Reference Range Interpretation Comments STAIN ACCEPTABILITY (test code = STN ACCEPTABLE) CABOT RINGS (test code = CAB) MORPHOLOGY COMMENT (test code = MOC) PLATELET ESTIMATE (test code = PLTEST) PLATELET MORPHOLOGY (test code = PLTMORPH) THYROID STIMULATING [id number] 22:36:00* Test Item Value Reference Range Interpretation Comments THYROID STIMULATING HORMONE (test code = TSH) 0.141 uIU/mL 0.36-3.7 4 L TSH REFERENCE RANGES: EUTHYROID: 0.35 - 4.3 mIU/mL HYPO : > 5.5 mIU/mL HYPER : < 0.35 mIU/mL [id number] 22:24:00* Test Item Value Reference Range Interpretation Comments TROPONIN-I (test code = TROPI) <0.015 ng/mL 0-0.045 N COMMENTS TO INSPECTOR SHEET METAL PARTS: COLLECT 3 HOURS AFTER PREVIOUS SAMPLEB-TYPE NATRIURETIC [id number] 16:33:00* Test Item Value Reference Range Interpretation Comments B-TYPE NATRIURETIC PEPTIDE (test code = BNP) 18.63 pgram/mL 0-100 N BASIC METABOLIC [id number] 16:21:00* Test Item Value Reference Range Interpretation [...] code = CA) 9.6 mg/dL 8.5-10.1 N [id number] 16:21:00* Test Item Value Reference Range Interpretation Comments LIPASE (test code = LIP) 13 U/L 73.0-393.0 L [id number] 16:21:00* Test Item Value Reference Range Interpretation Comments TROPONIN-I (test code = TROPI) <0.015 ng/mL 0-0.045 N BASIC METABOLIC [id number] 16:13:00* Test Item Value Reference Range Interpretation [...] CALCIUM (test code = CA) mg/dL 8.5-10.1 [id number] 16:13:00* Test Item Value Reference Range Interpretation Comments LIPASE (test code = LIP) U/L 73.0-393.0 [id number] 16:13:00* Test Item Value Reference Range Interpretation Comments TROPONIN-I (test code = TROPI) ng/mL 0-0.045 CBC W/O [id number] 16:09:00* Test Item Value Reference Range Interpretation [...] MPV) 9.3 fL 6.7-11.0 N VENOUS BLOOD [id number] 15:54:00* Test Item Value Reference Range Interpretation Comments VENOUS BLOOD GAS PH (test code = PHV) 7.40 7.30-7.40 N VENOUS BLOOD GAS PCO2 (test code = PCO2V) 22.8 mm Hg 39.0-51.0 LL Results called to and read back by [employer] 15:03/31/2019; by [employer] rt VENOUS BLOOD GAS PO2 (test code = PO2V) 45.7 mm Hg 30.0-50.0 N VBG HCO3 (test code = HCO3V) 13.9 mmol/L 17.0-30.0 L VBG BASE EXCESS (test code = QUIQUE) -9.6 mmol/L -5.0-5.0 LL Results called to and read back by maría elenaMediakraft Türki[employer]emaged 15:03/31/2019; by [employer] rt VENOUS BLOOD GAS O2 SAT. (test [...] Results called to and read back by [employer] 15:53 03/31/2019; by [employer] rt METHEMOGLOBIN (test code = METHGB) 0.5 % 0.0-1.50 N - XR CHEST 1 [id number] 15:41:00 FAX: Ghulam Saha MD [place]: [address] St: REG Name: VIRA PUGH [facility] : [birth year] Age/S: 63/F Eliseo Polanco [facility] Unit #: [id number] Loc: [place] [address] Phys: Ghulam Saha MD Acct: [id number] Dis Date: Status: REG ER PHONE #: [phone] Exam Date: 03/31/2019 1540 FAX #: [phone] Reason: Shortness of Breath EXAMS: CPT CODE: [id number] XR CHEST 1 V 59293 REASON FOR EXAM: Shortness of Breath EXAM ORDER DATE: 03/31/2019 3:06 PM Ordering M.Shama.: Ghulam Saha MD PROCEDURE: - XR CHEST 1 V [...] signed by: Jj Russell M.D. CC: Ghulam Saha MD Lindsay hnologist: Milena De La Cruz RT(R); ESTEFANI MCGHEE RT(R) Trnvtrd Date/T floyd/By: 03/31/2019 (7451) : By: KasiaL Orig Print D/T: S: 9 (8751) PAGE [address] CHEST [id number] 21:24:00 [place] [address] Patient Name: VIRA MESSINA MR #: [id number] : 1955 Age/Sex: 63/F Req #: [id number] Adm Physician: Ordered by: EMILIA MCGUIRE MD Report #: [id number] Location: Room/Bed: Procedure: [id number] CT /CT CHEST WO Exam Date: 11/10/18 [...] PM Dictated By: TANNER BUCKNER MD [address] scribed By: SONAM on 11/10/182130 COPY TO: EMILIA MCGUIRE MD CHEST SINGLE (PORTABLE)2018-11-10 19:50:00 [place] [address] Patient Name: VIRA MESSINA MR #: [id number] : 1955 Age/Sex: 63/F Req #: [id number] Adm Physician: Ordered by: CAMMIE MEJIA MD Report #: [id number] Location: ER Room/Bed: Procedure: [id number] DX /CHEST SINGLE (PORTABLE) Exam Date: Exam [...] 11/10/181953 COPY TO: CAMMIE MEJIA MD Sodium [id number] 07:00:00* Test Item Value Reference Range Interpretation Comments Sodium Level (test code = 2951-2) 139 136-145 [facility] Efrmi3270-80-34 07:00:00* Test Item Value Reference Range Interpretation Comments Potassium Level (test code = 2823-3) 4.0 3.5-5.1 [facility] HospitalChloride Fxhdh2262-64-05 07:00:00* Test Item Value Reference Range Interpretation Comments Chloride Level (test code = 2075-0) 103 98-107 [facility] HospitalCarbon Dioxide Izufl4865-09-13 07:00:00* Test Item Value Reference Range Interpretation Comments Carbon Dioxide Level (test code = 2028-9) 26 22-29 [facility] HospitalAnion Ipc7490-06-19 07:00:00* Test Item Value Reference Range Interpretation Comments Anion Gap (test code = 96915-5) 14.0 8-16 [facility] HospitalBlood Urea Pzcrxglx1909-78-22 07:00:00* Test Item Value Reference Range Interpretation Comments Blood Urea Nitrogen (test code = 3094-0) 12 7-26 [facility] HospitalCreatinine2018-11-30 07:00:00* Test Item Value Reference Range Interpretation Comments Creatinine (test code = 2160-0) 0.61 0.57-1.11 [facility] HospitalBUN/Creatinine Vzbvo0906-44-34 07:00:00* Test Item Value Reference Range Interpretation Comments BUN/Creatinine Ratio (test code = 3097-3) 20 6-25 [facility] HospitalEstimat Glomerular Filtration Rate 2018-06-11 07:00:00* Test Item Value Reference Range Interpretation Comments Estimat Glomerular Filtration Rate (test code = 734828841) > 60 >60 Ranges were taken from the National Kidney Disease Education Program and the [facility] Foundation literature.Reference ranges:60 or greater: Ekccel94-85 ( for 3 consecutive months): Chronic kidney disease 15 or less: Kidney failureUT Health East [facility] Carth[facility] HospitalGlucose Mktal3066-69-02 07:00:00* Test Item Value Reference Range Interpretation Comments Glucose Level (test code = YUH2240) 66 74-118 L [facility] HospitalCalcium Ltnak8255-94-65 07:00:00* Test Item Value Reference Range Interpretation Comments Calcium Level (test code = 31936-3) 8.8 8.4-10.2 [facility] HospitalMagnesium Vgboj8966-95-58 07:00:00* Test Item Value Reference Range Interpretation Comments Magnesium Level (test code = 42442-4) 2.2 1.3-2.1 [facility] System[facility] Okcpj7915-59-09 07:00:00* Test Item Value Reference Range Interpretation Comments Sodium Level (test code = 2951-2) 139 136-145 [facility] HospitalPotassium Daato0097-60-97 07:00:00* Test Item Value Reference Range Interpretation Comments Potassium Level (test code = 2823-3) 4.0 3.5-5.1 [facility] HospitalChloride Eefzy8347-81-46 07:00:00* Test Item Value Reference Range Interpretation Comments Chloride Level (test code = 2075-0) 103 98-107 [facility] HospitalCarbon Dioxide Gvetl8993-96-30 07:00:00* Test Item Value Reference Range Interpretation Comments Carbon Dioxide Level (test code = 2028-9) 26 22-29 [facility] HospitalAnion Umu3530-35-87 07:00:00* Test Item Value Reference Range Interpretation Comments Anion Gap (test code = 79830-1) 14.0 8-16 [facility] HospitalBlood Urea Pyhnwvve5438-34-99 07:00:00* Test Item Value Reference Range Interpretation Comments Blood Urea Nitrogen (test code = 3094-0) 12 7-26 [facility] HospitalCreatinine2018-11-30 07:00:00* Test Item Value Reference Range Interpretation Comments Creatinine (test code = 2160-0) 0.61 0.57-1.11 [facility] HospitalBUN/Creatinine Ydbbp8940-17-79 07:00:00* Test Item Value Reference Range Interpretation Comments BUN/Creatinine Ratio (test code = 3097-3) 20 6-25 [facility] HospitalEstimat Glomerular Filtration Rate 2018-06-11 07:00:00* Test Item Value Reference Range Interpretation Comments Estimat Glomerular Filtration Rate (test code = 384524093) > 60 >60 Ranges were taken from the National Kidney Disease Education Program and the [facility] Kidney Foundation literature.Reference ranges:60 or greater: Vmvnrv41-51 ( for 3 consecutive months): Chronic kidney disease 15 or less: Kidney failureCHI Methodist Richardson Medical CenterGlucose Hjnqp1880-27-02 07:00:00* Test Item Value Reference Range Interpretation Comments Glucose Level (test code = DDG7677) 66 74-118 L [facility] HospitalCalcium Vdivz0428-20-53 07:00:00* Test Item Value Reference Range Interpretation Comments Calcium Level (test code = 02068-8) 8.8 8.4-10.2 [facility] HospitalMagnesium Oxjoo0297-54-49 07:00:00* Test Item Value Reference Range Interpretation Comments Magnesium Level (test code = 35981-6) 2.2 1.3-2.1 H [facility] HospitalWhite Blood Sufdd0115-49-14 06:57:00* Test Item Value Reference Range Interpretation Comments White Blood Count (test code = 6690-2) 6.16 4.8-10.8 [facility] [facility]Red Blood Gygsm3260-22-43 06:57:00* Test Item Value Reference Range Interpretation Comments Red Blood Count (test code = 789-8) 3.12 3.6-5.1 L [facility] HospitalHemoglobin2018-11-30 06:57:00* Test Item Value Reference Range Interpretation Comments Hemoglobin (test code = 32464-3) 10.1 12.0-16.0 L [facility] HospitalHematocrit2018-11-30 06:57:00* Test Item Value Reference Range Interpretation Comments Hematocrit (test code = 4544-3) 31.5 34.2-44.1 L [facility] HospitalMean Corpuscular Gddpsh4577-55-92 06:57:00* Test Item Value Reference Range Interpretation Comments Mean Corpuscular Volume (test code = 787-2) 101.0 81-99 H [facility] HospitalMean Corpuscular Vifnguihup5388-04-11 06:57:00* Test Item Value Reference Range Interpretation Comments Mean Corpuscular Hemoglobin (test code = 785-6) 32.4 28-32 H [facility] HospitalMean Corpuscular Hemoglobin Concent 2018-06-11 06:57:00* Test Item Value Reference Range Interpretation Comments Mean Corpuscular Hemoglobin Concent (test code = 786-4) 32.1 31-35 [facility] HospitalRed Cell Distribution Amuby5206-04-37 06:57:00* Test Item Value Reference Range Interpretation Comments Red Cell Distribution Width (test code = 15592-0) 14.4 11.7 -14.4 [facility] HospitalPlatelet Rxvjc1366-49-11 06:57:00* Test Item Value Reference Range Interpretation Comments Platelet Count (test code = 777-3) 248 140-360 [facility] HospitalNeutrophils (%) (Auto)2018-06-11 06:57:00 * Test Item Value Reference Range Interpretation Comments Neutrophils (%) (Auto) (test code = 87712-2) 66.4 38.7-80.0 [facility] HospitalLymphocytes (%) (Auto)2018-06-11 06:57:00 * Test Item Value Reference Range Interpretation Comments Lymphocytes (%) (Auto) (test code = 736-9) 15.3 18.0-39.1 L [facility] HospitalMonocytes (%) (Auto)2018-06-11 06:57:00* Test Item Value Reference Range Interpretation Comments Monocytes (%) (Auto) (test code = 5905-5) 13.5 4.4-11.3 H [facility] HospitalEosinophils (%) (Auto)2018-06-11 06:57:00 * Test Item Value Reference Range Interpretation Comments Eosinophils (%) (Auto) (test code = 713-8) 4.2 0.0-6.0 [facility] HospitalBasophils (%) (Auto)2018-06-11 06:57:00* Test Item Value Reference Range Interpretation Comments Basophils (%) (Auto) (test code = 706-2) 0.3 0.0-1.0 [facility] HospitalIM GRANULOCYTES %2018-06-11 06:57:00* Test Item Value Reference Range Interpretation Comments IM GRANULOCYTES % (test code = IM GRANULOCYTES %) 0.3 0.0- 1.0 [facility] HospitalNeutrophils # (Auto)2018-06-11 06:57:00* Test Item Value Reference Range Interpretation Comments Neutrophils # (Auto) (test code = 751-8) 4.1 2.1-6.9 [facility] HospitalLymphocytes # (Auto)2018-06-11 06:57:00* Test Item Value Reference Range Interpretation Comments Lymphocytes # (Auto) (test code = 52346-4) 0.9 1.0-3.2 L [facility] HospitalMonocytes # (Auto)2018-06-11 06:57:00* Test Item Value Reference Range Interpretation Comments Monocytes # (Auto) (test code = 742-7) 0.8 0.2-0.8 [facility] HospitalEosinophils # (Auto)2018-06-11 06:57:00* Test Item Value Reference Range Interpretation Comments Eosinophils # (Auto) (test code = 711-2) 0.3 0.0-0.4 [facility] HospitalBasophils # (Auto)2018-06-11 06:57:00* Test Item Value Reference Range Interpretation Comments Basophils # (Auto) (test code = 704-7) 0.0 0.0-0.1 [facility] HospitalAbsolute Immature Granulocyte (auto 2018-06-11 06:57:00* Test Item Value Reference Range Interpretation Comments Absolute Immature Granulocyte (auto (jasvir t code = Absolute Immature Granulocyte (auto) 0.02 0-0.1 [facility] HospitalWhite Blood Rrcay2077-39-69 06:57:00* Test Item Value Reference Range Interpretation Comments White Blood Count (test code = 6690-2) 6.16 4.8-10.8 [facility] HospitalRed Blood Digqh5236-00-84 06:57:00* Test Item Value Reference Range Interpretation Comments Red Blood Count (test code = 789-8) 3.12 3.6-5.1 L [facility] HospitalHemoglobin2018-11-30 06:57:00* Test Item Value Reference Range Interpretation Comments Hemoglobin (test code = 87591-3) 10.1 12.0-16.0 L [facility] HospitalHematocrit2018-11-30 06:57:00* Test Item Value Reference Range Interpretation Comments Hematocrit (test code = 4544-3) 31.5 34.2-44.1 L [facility] HospitalMean Corpuscular Nacebz3016-40-49 06:57:00* Test Item Value Reference Range Interpretation Comments Mean Corpuscular Volume (test code = 787-2) 101.0 81-99 H [facility] HospitalMean Corpuscular Rqsavavswq2130-26-97 06:57:00* Test Item Value Reference Range Interpretation Comments Mean Corpuscular Hemoglobin (test code = 785-6) 32.4 28-32 H [facility] HospitalMean Corpuscular Hemoglobin Concent 2018-06-11 06:57:00* Test Item Value Reference Range Interpretation Comments Mean Corpuscular Hemoglobin Concent (test code = 786-4) 32.1 31-35 [facility] HospitalRed Cell Distribution Mguxp7372-00-41 06:57:00* Test Item Value Reference Range Interpretation Comments Red Cell Distribution Width (test code = 35032-6) 14.4 11.7 -14.4 [facility] HospitalPlatelet Gfjja2930-10-59 06:57:00* Test Item Value Reference Range Interpretation Comments Platelet Count (test code = 777-3) 248 140-360 [facility] HospitalNeutrophils (%) (Auto)2018-06-11 06:57:00 * Test Item Value Reference Range Interpretation Comments Neutrophils (%) (Auto) (test code = 36641-6) 66.4 38.7-80.0 [facility] HospitalLymphocytes (%) (Auto)2018-06-11 06:57:00 * Test Item Value Reference Range Interpretation Comments Lymphocytes (%) (Auto) (test code = 736-9) 15.3 18.0-39.1 L [facility] HospitalMonocytes (%) (Auto)2018-06-11 06:57:00* Test Item Value Reference Range Interpretation Comments Monocytes (%) (Auto) (test code = 5905-5) 13.5 4.4-11.3 H [facility] HospitalEosinophils (%) (Auto)2018-06-11 06:57:00 * Test Item Value Reference Range Interpretation Comments Eosinophils (%) (Auto) (test code = 713-8) 4.2 0.0-6.0 [facility] HospitalBasophils (%) (Auto)2018-06-11 06:57:00* Test Item Value Reference Range Interpretation Comments Basophils (%) (Auto) (test code = 706-2) 0.3 0.0-1.0 [facility] HospitalIM GRANULOCYTES %2018-06-11 06:57:00* Test Item Value Reference Range Interpretation Comments IM GRANULOCYTES % (test code = IM GRANULOCYTES %) 0.3 0.0- 1.0 [facility] HospitalNeutrophils # (Auto)2018-06-11 06:57:00* Test Item Value Reference Range Interpretation Comments Neutrophils # (Auto) (test code = 751-8) 4.1 2.1-6.9 [facility] HospitalLymphocytes # (Auto)2018-06-11 06:57:00* Test Item Value Reference Range Interpretation Comments Lymphocytes # (Auto) (test code = 17976-6) 0.9 1.0-3.2 L [facility] HospitalMonocytes # (Auto)2018-06-11 06:57:00* Test Item Value Reference Range Interpretation Comments Monocytes # (Auto) (test code = 742-7) 0.8 0.2-0.8 [facility] HospitalEosinophils # (Auto)2018-06-11 06:57:00* Test Item Value Reference Range Interpretation Comments Eosinophils # (Auto) (test code = 711-2) 0.3 0.0-0.4 [facility] HospitalBasophils # (Auto)2018-06-11 06:57:00* Test Item Value Reference Range Interpretation Comments Basophils # (Auto) (test code = 704-7) 0.0 0.0-0.1 [facility] HospitalAbsolute Immature Granulocyte (auto 2018-06-11 06:57:00* Test Item Value Reference Range Interpretation Comments Absolute Immature Granulocyte (auto (jasvir t code = Absolute Immature Granulocyte (auto) 0.02 0-0.1 [facility] HospitalABDOMEN-1VIEW (KUB)2018-06-11 06:49:00 [facility] [address] [place] [address] Patient Name: VIRA MESSINA MR #: [id number] : 1955 Age/Sex: 63/F Req #: [id number] Adm Physician: ALIE DUARTE MD Ordered by: Victoriano Hicks NP Report #: [id number] Location: [facility] Room/Bed: [facility] Procedure: [id number] DX /ABDOMEN-1VIEW (KUB) Exam Date: 06/11/18 Exam [...] 06/11/18648 COPY TO: VICTORIANO HICKS NP Carcinoembryonic Wowxocu2715-28-80 06:08:00 * Test Item Value Reference Range Interpretation Comments Carcinoembryonic Antigen (test code = 2039-6) 4.0 0.0-4.7 Radha ECLIA methodology Nonsmokers <3.9 Smokers <5.6Performed at: [facility] [id number] Director: Jung Ramirez MD, Phone: [phone] [facility] HospitalCarcinoembryonic Kzdefpj3866-60-07 06:08:00* Test Item Value Reference Range Interpretation Comments Carcinoembryonic Antigen (test code = 2039-6) 4.0 0.0-4.7 Radha ECLIA methodology Nonsmokers <3.9 Smokers <5.6Performed at: [facility] [id number] Director: Jung Ramirez MD, Phone: [phone] Health East [facility] HospitalCHEST SINGLE (PORTABLE)2018-06-10 06:54:00 [place] [address] Patient Name: VIRA MESSINA MR #: [id number] : 1955 Age/Sex: 63/F Req #: [id number] Adm Physician: ALIE DUARTE MD Ordered by: SONNY MEDRANO TOOL HARDENER Report #: [id number] Location: MED/SURG3 Room/Bed: 287-1 Procedure: [id number] DX/ CHEST SINGLE (PORTABLE) Exam Date: 06/10/18 [...] AMELIA Hernandez MD 3 Transcribed B y: SONAM on 06/10/18653 COPY TO: SONNY MEDRANO NP ABDOMEN- 1VIEW (KUB)2018-06-10 06:54:00 [place] [address] Patient Name: VIRA MESSINA MR #: [id number] : 1955 Age/Sex: 63/F Req #: [id number] Adm Physician: ALIE DUARTE MD Ordered by: SONNY MEDRANO NP Report #: [id number] Location: [facility]/S[facility] Room/Bed: 287-1 Procedure: [id number] DX/ ABDOMEN-1VIEW (KUB) Exam Date: 06/10/18 Exam Time: 0 530 [...] AMELIA Hernandez MD 4 Transcribed B y: SONAM on 06/10/18654 COPY TO: SONNY MEDRANO NP Thyroid Stimulating Hormone (TSH)2018-06-10 06:14:00* Test Item Value Reference Range Interpretation Comments Thyroid Stimulating Hormone (TSH) (test code = 47755-2) 1.351 0.350-4.940 [facility] HospitalThyroid Stimulating Hormone (TSH) 2018-06-10 06:14:00* Test Item Value Reference Range Interpretation Comments Thyroid Stimulating Hormone (TSH) (test code = 31275-7) 1.351 0.350-4.940 [facility] HospitalPhosphorus Qjlkh9935-90-99 05:43:00* Test Item Value Reference Range Interpretation Comments Phosphorus Level (test code = CPZ1958) 2.7 2.3-4.7 [facility] HospitalTotal Lwdumrzkc7701-83-07 05:43:00* Test Item Value Reference Range Interpretation Comments Total Bilirubin (test code = 1975-2) 0.7 0.2-1.2 [facility] HospitalAspartate Amino Transf (AST/SGOT) 2018-06-10 05:43:00* Test Item Value Reference Range Interpretation Comments Aspartate Amino Transf (AST/SGOT) (test code = Aspartate Amino Transf (AST/SGOT)) 21 5-34 [facility] HospitalAlanine Aminotransferase (ALT/SGPT) 2018-06-10 05:43:00* Test Item Value Reference Range Interpretation Comments Alanine Aminotransferase (ALT/SGPT) (test code = 1742-6) < 6 0-55 [facility] HospitalTotal Sjrweap4116-77-02 05:43:00* Test Item Value Reference Range Interpretation Comments Total Protein (test code = 2885-2) 6.4 6.5-8.1 L [facility] HospitalAlbumin2018-11-29 05:43:00* Test Item Value Reference Range Interpretation Comments Albumin (test code = 1751-7) 2.9 3.5-5.0 L [facility] HospitalGlobulin2018-11-29 05:43:00* Test Item Value Reference Range Interpretation Comments Globulin (test code = 77241-6) 3.5 2.3-3.5 [facility] HospitalAlbumin/Globulin Cpwfr1226-38-89 05:43:00 * Test Item Value Reference Range Interpretation Comments Albumin/Globulin Ratio (test code = 1759-0) 0.8 0.8-2.0 [facility] HospitalAlkaline Oohmtsrnepp5294-90-26 05:43:00* Test Item Value Reference Range Interpretation Comments Alkaline Phosphatase (test code = 6768-6) 65 40-150 [facility] HospitalTriglycerides Dqpnj2782-05-71 05:43:00* Test Item Value Reference Range Interpretation Comments Triglycerides Level (test code = 2571-8) 99 0-149 [facility] HospitalCholesterol Uiery9517-22-36 05:43:00* Test Item Value Reference Range Interpretation Comments Cholesterol Level (test code = 2093-3) 134 0-199 Less than 200 mg/dL Low Xylc066 - 239 mg/dL Borderline Senf835 m g/dl and greater High Risk [facility] HospitalLDL Sxjfqhttxqk9152-44-89 05:43:00* Test Item Value Reference Range Interpretation Comments LDL Cholesterol (test code = 2089-1) 39 60-130 L [facility] HospitalHDL Atprwvhjzfw2426-20-63 05:43:00* Test Item Value Reference Range Interpretation Comments HDL Cholesterol (test code = 2085-9) 75 40-60 H [facility] HospitalCholesterol/HDL Zhbae9308-91-70 05:43:00 * Test Item Value Reference Range Interpretation Comments Cholesterol/HDL Ratio (test code = 9830-1) 1.8 3.0-3.6 L [facility] HospitalPhosphorus Qnzyf2962-20-80 05:43:00* Test Item Value Reference Range Interpretation Comments Phosphorus Level (test code = RNX0698) 2.7 2.3-4.7 [facility] HospitalTotal Nqzirgcut3940-42-46 05:43:00* Test Item Value Reference Range Interpretation Comments Total Bilirubin (test code = 1975-2) 0.7 0.2-1.2 [facility] HospitalAspartate Amino Transf (AST/SGOT) 2018-06-10 05:43:00* Test Item Value Reference Range Interpretation Comments Aspartate Amino Transf (AST/SGOT) (test code = Aspartate Amino Transf (AST/SGOT)) 21 5-34 [facility] HospitalAlanine Aminotransferase (ALT/SGPT) 2018-06-10 05:43:00* Test Item Value Reference Range Interpretation Comments Alanine Aminotransferase (ALT/SGPT) (test code = 1742-6) < 6 0-55 [facility] HospitalT[facility] Qjctqqn3373-07-81 05:43:00* Test Item Value Reference Range Interpretation Comments Total Protein (test code = 2885-2) 6.4 6.5-8.1 L [facility] HospitalAlbumin2018-11-29 05:43:00* Test Item Value Reference Range Interpretation Comments Albumin (test code = 1751-7) 2.9 3.5-5.0 L [facility] HospitalGlobulin2018-11-29 05:43:00* Test Item Value Reference Range Interpretation Comments Globulin (test code = 17290-7) 3.5 2.3-3.5 [facility] HospitalAlbumin/Globulin Hleja4173-55-11 05:43:00 * Test Item Value Reference Range Interpretation Comments Albumin/Globulin Ratio (test code = 1759-0) 0.8 0.8-2.0 [facility] HospitalAlkaline Nsunmnfzxdo2381-62-72 05:43:00* Test Item Value Reference Range Interpretation Comments Alkaline Phosphatase (test code = 6768-6) 65 40-150 [facility] HospitalTriglycerides Wwlbz7260-08-07 05:43:00* Test Item Value Reference Range Interpretation Comments Triglycerides Level (test code = 2571-8) 99 0-149 [facility] HospitalCholesterol Agkop4150-91-28 05:43:00* Test Item Value Reference Range Interpretation Comments Cholesterol Level (test code = 2093-3) 134 0-199 Less than 200 mg/dL Low Wttk647 - 239 mg/dL Borderline Sznv137 m g/dl and greater High Risk [facility] HospitalLDL Ramtjwvmbtz0600-88-20 05:43:00* Test Item Value Reference Range Interpretation Comments LDL Cholesterol (test code = 2089-1) 39 60-130 L [facility] HospitalHDL Dcyqaqtsgyj8969-83-79 05:43:00* Test Item Value Reference Range Interpretation Comments HDL Cholesterol (test code = 2085-9) 75 40-60 H [facility] HospitalCholesterol/HDL Xetea6066-10-22 05:43:00 * Test Item Value Reference Range Interpretation Comments Cholesterol/HDL Ratio (test code = 9830-1) 1.8 3.0-3.6 L [facility] HospitalHemoglobin A1c Oodokex5333-31-66 05:36:00 * Test Item Value Reference Range Interpretation Comments Hemoglobin A1c Percent (test code = Hemoglobin A1c Percent) 4.5 4.0-7.0 [facility] HospitalHemoglobin A1c Wajdcth1530-51-05 05:36:00 * Test Item Value Reference Range Interpretation Comments Hemoglobin A1c Percent (test code = Hemoglobin A1c Percent) 4.5 4.0-7.0 [facility] 05:26:00* Test Item Value Reference Range Interpretation Comments Ammonia (test code = 85060-9) 57 31-123 [facility]onia2018-11-29 05:26:00* Test Item Value Reference Range Interpretation Comments Ammonia (test code = 67789-0) 57 31-123 [facility] HospitalCT ABDOMEN/PELVIS WT4141-95-46 18:36:00 [facility] [address] [place] [address] Patient Name: VIRA MESSINA MR #: [id number] : 1955 Age/Sex: 63/F Req #: [id number] Adm Physician: Ordered by: URBANO CALABRESE TOOL HARDENER Report #: [id number] Location: ER Room/Bed: Procedure: [id number] C T/CT ABDOMEN/PELVIS WO Exam Date: 06/09/18 Exam Time : 1724 REPORT STATUS: Signed EXA M: CT Abdomen [...] PY TO: URBANO CALABRESE NP Lactic Acid Rmozy7550-84-12 15:28:00* Test Item Value Reference Range Interpretation Comments Lactic Acid Level (test code = Lactic Acid Level) 9.9 4.5- 19.8 [facility] HospitalLactic Acid Sbgtk8693-06-81 15:28:00* Test Item Value Reference Range Interpretation Comments Lactic Acid Level (test code = Lactic Acid Level) 9.9 4.5- 19.8 [facility] HospitalUrine XAL1822-86-61 15:14:00* Test Item Value Reference Range Interpretation Comments Urine WBC (test code = 5821-4) 0-5 0-5 [facility] OUU5753-23-52 15:14:00* Test Item Value Reference Range Interpretation Comments Urine RBC (test code = 26926-4) 0-5 0-5 [facility] Zbupivox2024-72-69 15:14:00* Test Item Value Reference Range Interpretation Comments Urine Bacteria (test code = 81602-7) FEW NONE [facility] Epithelial Eqlsl8418-10-22 15:14:00 * Test Item Value Reference Range Interpretation Comments Urine Epithelial Cells (test code = 46639-6) FEW NONE [facility] Amorphous Ffxtpndz0345-15-46 15:14:00* Test Item Value Reference Range Interpretation Comments Urine Amorphous Sediment (test code = 8246-1) MODERATE FEW H [facility] Hyaline Qrzww8216-31-16 15:14:00* Test Item Value Reference Range Interpretation Comments Urine Hyaline Casts (test code = 80010-4) 2-5 0-1 H [facility] MFE2096-71-19 15:14:00* Test Item Value Reference Range Interpretation Comments Urine WBC (test code = 5821-4) 0-5 0-5 [facility] DJE4118-42-62 15:14:00* Test Item Value Reference Range Interpretation Comments Urine RBC (test code = 70290-8) 0-5 0-5 [facility] Qxqgeijn8248-05-93 15:14:00* Test Item Value Reference Range Interpretation Comments Urine Bacteria (test code = 76032-4) FEW NONE [facility] Epithelial Uuwtu1172-06-75 15:14:00 * Test Item Value Reference Range Interpretation Comments Urine Epithelial Cells (test code = 83009-1) FEW NONE [facility] Amorphous Mddixavo0698-88-54 15:14:00* Test Item Value Reference Range Interpretation Comments Urine Amorphous Sediment (test code = 8246-1) MODERATE FEW H [facility] Hyaline Rgzka0616-79-20 15:14:00* Test Item Value Reference Range Interpretation Comments Urine Hyaline Casts (test code = 67157-6) 2-5 0-1 H [facility] HospitalProthrombin Rdov6851-55-43 15:09:00* Test Item Value Reference Range Interpretation Comments Prothrombin Time (test code = 5902-2) 11.1 11.9-14.5 L [facility] HospitalProthromb Time International Ratio 2018-06-09 15:09:00* Test Item Value Reference Range Interpretation Comments Prothromb Time International Ratio (test code = 6301-6) 0.74 Oral Anticoagulant Therapy INR Values:1. Low Intensity Therapy 1.5 - 2.02 . Moderate Intensity Therapy 2.0 - 3.03. High Intensity Therapy(1) 2.5 - 3. 54. High Intensity Therapy(2) 3.0 - 4.05. Panic Value INR > 5.0 [facility] HospitalActivated Partial Thromboplast Time 2018-06-09 15:09:00* Test Item Value Reference Range Interpretation Comments Activated Partial Thromboplast Time (test code = 29786-8) 30.3 23.8-35.5 [facility] HospitalAmylase Qytqr4375-22-18 15:09:00* Test Item Value Reference Range Interpretation Comments Amylase Level (test code = 1798-8) 45 25-125 [facility] HospitalLipase2018-11-28 15:09:00* Test Item Value Reference Range Interpretation Comments Lipase (test code = 3040-3) 8 8-78 [facility] HospitalProthrombin Bfxv1826-06-42 15:09:00* Test Item Value Reference Range Interpretation Comments Prothrombin Time (test code = 5902-2) 11.1 11.9-14.5 L [facility] HospitalProthromb Time International Ratio 2018-06-09 15:09:00* Test Item Value Reference Range Interpretation Comments Prothromb Time International Ratio (test code = 6301-6) 0.74 Oral Anticoagulant Therapy INR Values:1. Low Intensity Therapy 1.5 - 2.02 . Moderate Intensity Therapy 2.0 - 3.03. High Intensity Therapy(1) 2.5 - 3. 54. High Intensity Therapy(2) 3.0 - 4.05. Panic Value INR > 5.0 [facility] HospitalActivated Partial Thromboplast Time 2018-06-09 15:09:00* Test Item Value Reference Range Interpretation Comments Activated Partial Thromboplast Time (test code = 63166-7) 30.3 23.8-35.5 [facility] HospitalAmylase Iydfj8266-27-03 15:09:00* Test Item Value Reference Range Interpretation Comments Amylase Level (test code = 1798-8) 45 25-125 [facility] HospitalLipase2018-11-28 15:09:00* Test Item Value Reference Range Interpretation Comments Lipase (test code = 3040-3) 8 8-78 [facility] HospitalUrine Yoqre5435-18-39 15:03:00* Test Item Value Reference Range Interpretation Comments Urine Color (test code = 5778-6) STRAW YELLOW [facility] HospitalUrine Wjypisw0121-47-19 15:03:00* Test Item Value Reference Range Interpretation Comments Urine Clarity (test code = 55711-2) SL CLOUDY CLEAR [facility] HospitalUrine Specific Ylnggfr7393-39-09 15:03:00 * Test Item Value Reference Range Interpretation Comments Urine Specific Delphi (test code = 5811-5) 1.025 1.010-1.02 5 [facility] HospitalUrine tK4019-50-57 15:03:00* Test Item Value Reference Range Interpretation Comments Urine pH (test code = 89495-9) 5 5-7 [facility] HospitalUrine Leukocyte Iepmldmm9889-89-02 15:03:00* Test Item Value Reference Range Interpretation Comments Urine Leukocyte Esterase (test code = 5799-2) NEGATIVE NEGATIVE [facility] HospitalUrine Jnmfgub3533-94-02 15:03:00* Test Item Value Reference Range Interpretation Comments Urine Nitrite (test code = 56419-4) NEGATIVE NEGATIVE [facility] HospitalUrine Ofyuvkx5732-66-25 15:03:00* Test Item Value Reference Range Interpretation Comments Urine Protein (test code = 5804-0) NEGATIVE NEGATIVE [facility] HospitalUrine Glucose (UA)2018-06-09 15:03:00* Test Item Value Reference Range Interpretation Comments Urine Glucose (UA) (test code = 2349-9) NEGATIVE NEGATIVE [facility] HospitalUrine Pihlcaz2579-63-27 15:03:00* Test Item Value Reference Range Interpretation Comments Urine Ketones (test code = 62300-8) NEGATIVE NEGATIVE [facility] Gfuxdlqzlkwn7819-75-32 15:03:00* Test Item Value Reference Range Interpretation Comments Urine Urobilinogen (test code = 45701-9) 0.2 0.2-1 [facility] Qzyhsxqkb3280-46-40 15:03:00* Test Item Value Reference Range Interpretation Comments Urine Bilirubin (test code = 1978-6) NEGATIVE NEGATIVE [facility] Orlme4220-39-16 15:03:00* Test Item Value Reference Range Interpretation Comments Urine Blood (test code = 01943-7) 1+ NEGATIVE H [facility] Yctc9615-72-48 15:03:00* Test Item Value Reference Range Interpretation Comments Urine Test (test code = 2106-3) [facility]GATIVE [facility]IVE [facility] Jtpnr3710-89-81 15:03:00* Test Item Value Reference Range Interpretation Comments Urine Color (test code = 5778-6) STRAW YELLOW [facility] Rkrsnyf6382-53-84 15:03:00* Test Item Value Reference Range Interpretation Comments Urine Clarity (test code = 95744-6) SL CLOUDY CLEAR [facility] Specific Mzexwie5374-11-61 15:03:00 * Test Item Value Reference Range Interpretation Comments Urine Specific Del[employer] (test code = 5811-5) 1.025 1.010-1.02 5 [facility] [id number] 15:03:00* Test Item Value Reference Range Interpretation Comments Urine pH (test code = 26640-8) 5 5-7 [facility] Leukocyte Cahtfdue4020-47-85 15:03:00* Test Item Value Reference Range Interpretation Comments Urine Leukocyte Esterase (test code = 5799-2) NEGATIVE NEGATIVE [facility] Eabeizo9896-61-27 15:03:00* Test Item Value Reference Range Interpretation Comments Urine Nitrite (test code = 35475-8) NEGATIVE NEGATIVE [facility] Moazzpf6368-40-30 15:03:00* Test Item Value Reference Range Interpretation Comments Urine Protein (test code = 5804-0) NEGATIVE NEGATIVE [facility] Glucose (UA)2018-06-09 15:03:00* Test Item Value Reference Range Interpretation Comments Urine Glucose (UA) (test code = 2349-9) NEGATIVE NEGATIVE [facility] Lhgjhnm1492-32-77 15:03:00* Test Item Value Reference Range Interpretation Comments Urine Ketones (test code = 45173-6) NEGATIVE NEGATIVE [facility] Ptcigoauzwhl6822-20-72 15:03:00* Test Item Value Reference Range Interpretation Comments Urine Urobilinogen (test code = 16186-0) 0.2 0.2-1 [facility] Sxqvsbraa4107-40-42 15:03:00* Test Item Value Reference Range Interpretation Comments Urine Bilirubin (test code = 1978-6) NEGATIVE NEGATIVE [facility] Eaihd7230-34-11 15:03:00* Test Item Value Reference Range Interpretation Comments Urine Blood (test code = 43853-2) 1+ NEGATIVE H [facility] Alrc9398-53-16 15:03:00* Test Item Value Reference Range Interpretation Comments Urine Test (test code = 2106-3) NEGATIVE NEGATIVE [facility]2018-01-28 17:17:00 [place] [address] Patient Name: VIRA MESSINA MR #: [id number] : 1955 Age/Sex: 62/F Req #: [id number] Adm Physician: Ordered by: FIORDALIZA NICHOLE MD Report #: [id number] Location: ER Room/Bed: Procedure: [id number] DX/CHEST SINGLE (PORTABLE) Exam Date: 01/28/18 Exam [...] No acute bony abnormality. Generalized osteopenia. IMPRES FELIPE: 1. No acute cardiopulmonary abnormalities. Trevor sheth M.D. Dictated by: Trevor Whitney M.D. on 01/28/2018 at 17:17 Electronically approved by: Trevor Whitney M.D. on 01/28/2018 at 17:17 Dictated By: TREVOR WHITNEY MD 16 Transcribed By: KRISTEN on 01/28/181716 COPY T O: FIORDALIZA NICHOLE MD SP LUMBAR AP LATERAL 2-3VWS [place] [address] Patient Name: VIRA MESSINA MR #: [id number] : 1955 Age/Sex: 62/F Req #: [id number] Adm Physician: Ordered by: NATTY TEE MD Report #: [id number] Location: ER Room/Bed: Procedure: [id number] DX/SP LUMBAR AP LATERAL 2-3VW S Exam [...]
[2020-03-18 23:17] LABS: ALBUMIN 4.1 g/dL (3.5-5.0); ALBUMIN/GLOBULIN RATIO 1.1 (0.8-2.0); ALKALINE PHOSPHATASE 100 IU/L (40-150); ANION GAP 17.5 mmol/L (8-16); BLOOD UREA NITROGEN 7 mg/dL (7-26); BUN/CREATININE RATIO 9 (6-25); CALCIUM 9.1 mg/dL (8.4-10.2); CARBON DIOXIDE 25 mmol/L (22-29); CHLORIDE 96 mmol/L (98-107); CREATINE KINASE 131 IU/L (29-168); CREATININE, SERUM 0.78 mg/dL (0.57-1.11); EST GLOMERULAR FILTRATION RATE > 60 ML/MIN (60-); GLUCOSE 107 mg/dL (74-118); POTASSIUM 4.5 mmol/L (3.5-5.1); SODIUM 134 mmol/L (136-145)
[2020-03-18 23:30] LABS: ALANINE AMINOTRANSFERASE < 6 IU/L (0-55)
[2020-03-19] VITALS (7 sets, daily range): BP systolic 90–108; BP diastolic 55–77
--- NOTE | 2020-03-19 00:33 | Diagnostic Imaging Report ---
EXAMINATION: CHEST SINGLE (PORTABLE) INDICATION: ^Y ^SOB, COUGH ^[id number] ^2325 ^Y COMPARISON: 01/26/2020 FINDINGS: AP view TUBES and LINES: None. LUNGS: Lungs are well inflated. Mild central vascular congestion. Minimal retrocardiac haziness. PLEURA: No significant pleural effusion or pneumothorax. HEART AND MEDIASTINUM: The cardiomediastinal silhouette is unremarkable. BONES AND SOFT TISSUES: No acute osseous lesion. Soft tissues are unremarkable. UPPER ABDOMEN: No free air under the diaphragm. IMPRESSION: Mild central vascular congestion. Minimal retrocardiac haziness, likely subsegmental atelectasis. Developing pneumonia cannot be excluded in the appropriate clinical context. Signed by: Dr. Terrance Girard MD on 03/19/2020 12:30 AM
[2020-03-19] MEDS ORDERED: CEFTRIAXONE SOD 1 GRAM/0.9% SOD CHL 50ML BAG IV SCH (00:45)
[2020-03-19] MEDS ORDERED: ONDANSETRON HCL INJ 2MG/ML 2ML 2 MG/ML VIAL IV PRN (00:45)
[2020-03-19] MEDS ORDERED: ACETAMINOPHEN 325 MG TAB PO PRN (00:45)
[2020-03-19] MEDS ORDERED: SODIUM CHLORIDE 0.9% 1000ML 1,000 ML IV ONE (00:45)
[2020-03-19 00:59] LABS: BACTERIA,URINE RARE /HPF; BILIRUBIN,URINE NEGATIVE (NEGATIVE); CLARITY,URINE CLEAR (CLEAR); COLOR,URINE YELLOW (YELLOW); EPITHELIAL CELLS,URINE FEW /LPF; KETONES,URINE NEGATIVE (NEGATIVE); LEUKOCYTE ESTERASE ,URINE NEGATIVE (NEGATIVE); NITRITE,URINE NEGATIVE (NEGATIVE); PROTEIN,URINE DIPSTICK NEGATIVE (NEGATIVE); RBC,URINE 0-5 /HPF (0-5); URINE UROBILINOGEN 0.2 mg/dL (0.2 - 1); WBC,URINE (MAN) 0-5 /HPF (0-5)
[2020-03-19] MEDS ORDERED: AZITHROMYCIN 500MG/NS 250 ML 250 ML ONE (00:59)
--- OUTSIDE RECORDS SUMMARY | 2020-03-19 01:06 | XMS REPORT | Continuity of Care Document ---
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
--- OUTSIDE RECORDS SUMMARY | 2020-03-19 01:07 | XMS REPORT | Continuity of Care Document ---
Author Author [facility] t Organization [facility] Address [address] [place] [id number] Phone Unavailable Care Team Providers Care Parimutuel Ticket Checker Name Role Phone RAO DO Shama KHOURY PCP Mary DYER Attphys Unavailable MALGORZATA CERVANTES Attphys Unavailable SWEETLinda Attphys Unavailable HUSBYRamirez Attphys Unavailable ALIE DUARTE Attphys Unavailable MANEEVESE, Onofre MANCERA Attphys Unavailable ALIE DUARTE Admphys Unavailable Payers Payer Name Policy Type Policy Number Effective Date Expiration Date [facility] [id number] 2011 00:00 :00 [facility] Problems Condition Name Condition Details Condition Category Status Onset Date Resolution Date Last Treatment Date Treating Clinician Comments Source Small bowel obstruction SBO (small bowel obstruction) Problem Active [facility] Acute exacerbation of chronic obstructive pulmonary disease Problem Active [facility] Bronchitis Problem Active [facility] Lumbago with sciatica, unspecified side Lumbago with sciatica, unspecified side Active Problem 12/26/2016 [facility] Problem Active 2016-12-26 02:46:31 Pablito Valdivia Chronic pain disorder 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 Active Problem 12/26/2016 [facility] Problem Active 2016-12-26 02:46:31 Marj Valdivia Laceration of elbow, left, initial encounter Laceration of elbow, left, initial encounter Active Diagnosis 12/25/2016 [facility] Diagnosis Active 2016-12-25 02:46:10 Marj Hasty Elbow laceration, right, initial encounter Elbow laceration, right, initial encounter Active Diagnosis 12/25/2016 [facility] Diagnosis Active 2016-12-25 02:46:10 Me collin Valdivia History of stroke Hist ory of stroke Active Diagnosis 12/25/2016 [facility] Diagnosis Active 2016-12-25 02:46:10 [facility] Allergies, Adverse Reactions, Alerts Allergy Name Allergy Type Status Severity Reaction(s) Onset Date Inacti ve Date Treating Clinician Comments Source Iodine and Iodide Containing Produc FA Active SV 4 00:00:00 [facility] morphine DA Active [place] 2020-03-16 00:00:00 [facility] Iodine and Iodide Containing Produc FA Active SV 2020-01-11 7 00:00:00 [facility] morphine DA Active [place] 2020-01-27 00:00:00 [facility] Iodine and Iodide Containing Produc FA Active SV 3 00:00:00 [facility] morphine DA Active [place] 2020-01-13 00:00:00 [facility] Morphine Allergy to substance Active itch 2019-12-18 00:00:00 [facility] Iodine and Iodide Containing Produc FA Active SV 2019-11-11 6 00:00:00 [facility] morphine DA Active [place] 2019-11-26 00:00:00 [facility] Iodine and Iodide Containing Produc FA Active SV 2019-04-14 1 00:00:00 [facility] morphine DA Active [place] 2019-05-12 00:00:00 [facility] Iodinated Contrast Media Allergy to substance Active Severe A NAPHYLAXIS 2018-11-10 00:00:00 [facility] Iodine and Iodide Containing Produc FA Active SV 2017-11-10 5 00:00:00 [facility] morphine DA Active [place] 2017-11-24 00:00:00 [facility] morphine morphine Active anaphylaxis 2016-12-11 00:00:00 [facility] Social History Social Habit Start Date Stop Date Quantity Comments Source Sex Assigned At 1955 00:00:00 1955 00:00:00 Female [facility] Medications Ordered Medication Name Filled Medication Name Start Date Stop Da te Current Medication? Ordering Clinician Indication Dosage Frequency Signature (SIG) Comments Components Source Azithromycin (Z-Ethan) 250 Mg TABLET Azithromycin (Z-Ethan) 250 Mg TABLET 2020-01-12 12:34:00 Yes 1 As Directed [facility] Suboxone 2016-12-25 02:50:31 Yes RODOLFO COREA [address] [facility] Plavix 2016-12-25 02:46:10 Yes RODOLFO COREA 1 ta b(s) [facility] Ambien 2016-12-25 02:46:[address] [facility] ROSA ELENA 1 ta b(s) [facility] Albuterol Sulfate (Proair Hfa Inhaler*) 8.5 Gm INH Alb uterol Sulfate (Proair Hfa Inhaler*) 8.5 Gm INH Yes 2 Four Times Daily [facility] Alendronate Sodium Alendronate Sodium Yes 70 As Needed [facility] Buspirone Hcl Buspirone Hcl Yes 7.5 Twice A Day [facility] Clopidogrel Bisulfate (Plavix) 75 Mg TABLET Clopidogre l Bisulfate (Plavix) 75 Mg TABLET Yes 75 Daily [facility] Gabapentin Gabapentin Yes 300 Three Times A Day [facility] Meloxicam Meloxicam Yes 15 Daily [facility] Oxcarbazepine Oxcarbazepine Yes 600 Twice A Day [facility] Tizanidine Hcl Tizanidine Hcl Yes 4 Every 8 Ho urs [facility] Zolpidem Tartrate Zolpidem Tartrate Yes 10 Bedtime as needed for Insomnia [facility] Vital Signs Vital Name Observation Time Observation Value Comments Source Weight 2020-01-26 22:36:00 125 [lb_av] [facility] BMI (Body Mass Index) 2020-01-26 22:36:00 19.0 kg/m2 [facility] Weight 2019-12-18 15:45:00 125 [lb_av] [facility] BMI (Body Mass Index) 2019-12-18 15:45:00 19.0 kg/m2 [facility] Temperature Oral (F) 2016-12-11 20:30:00 98.0 F [facility] Skip Weight 2016-12-11 20:30:00 [facility] Height 2016-12-11 20:30:00 [facility] Respitory Rate 2016-12-11 20:30:00 Memori al Hasty Diastolic (mm Hg) 2016-12-11 20:30:00 Mem orial Skip Systolic (mm Hg) 2016-12-11 20:30:00 Mp rial Hasty Procedures This patient has no known procedures. Plan of Care Planned Activity Planned Date Details Comments Source Instructions COPD [facility] Encounters Start Date/Time End Date/Time Encounter Type Admission Type Attendi [facility] Care Department Encounter ID Source 2020-01-27 20:26:00 2020-01-27 15:56:00 Inpatient E [facility]SE MED [id number] 2020-01-26 22:40:00 2020-01-27 00:10:00 Departed Emergency Room MALGORZATA CERVANTES [facility] [id number] [facility] 2020-01-12 15:39:00 2020-01-12 15:39:00 Registered Emergency Room [facility] [id number] [facility] 2019-12-18 15:42:00 2019-12-18 19:00:00 Departed Emergency Room 1 NATTY TEE [facility] [id number] [facility] 2019-09-16 18:27:00 2019-09-16 18:27:00 Emergency E MHSE [id number] 2018-11-10 18:35:00 2018-11-10 21:35:00 Departed Emergency Room 1 ROBERTO CAMMIE [facility] [id number] [facility] 2018-06-09 19:46:00 2018-06-11 07:41:00 Discharged Inpatient 1 EMILILUDA ALIE [facility] [id number] [facility] 2018-01-28 14:24:00 2018-01-28 17:50:00 Departed Emergency Room 1 FIORDALIZA NICHOLE [facility] [id number] [facility] 2017-07-02 22:33:00 2017-07-03 02:45:00 Departed Emergency Room ER NATTY TEE [facility] [id number] [facility] 2016-12-24 15:40:00 2016-12-24 15:40:00 [facility] [id number] eClinicalWo rks 2016-12-24 10:20:00 2016-12-24 10:20:[address] [facility] Med [id number] eClinicalWo rks 2016-12-11 15:30:00 2016-12-11 15:30:[address] [facility] Med [id number] [facility] Results Test Description Test Time Test Comments Results Result Comments Source CHEST SINGLE (PORTABLE) 2020-03-19 00:29:00 [place] [address] Patient Name: VIRA MESSINA MR #: [id number] : 1955 Age/Sex: 64/F Req #: [id number] Adm Physician: Ordered by: JC DYER MD Report #: [id number] Location: ER Room/Bed: Procedure: [id number] DX/CHEST SINGLE (PORTABLE) Exam Date: 03/18/20 Exam Time: 8025 REPORT STATUS: Signed EXAMINATION: CHEST SINGLE (PORTABLE) INDICATION: Y SOB, COUGH 20200318 Y COMPARISON: 01/26/2020 FINDINGS: AP view TUBES and LINES: None. LUNGS: Lungs are well inflated. Mild central vascular congestion. Minimal retrocardiac haziness. PLEURA: No significant pleural effusion or pneumothorax. HEART AND MEDIASTINUM: The cardiomediastinal silhouette is unremarkable. BONES AND SOFT TISSUES: No acute osseous lesion. Soft tissues are unremarkable. UPPER ABDOMEN: No free air under the diaphragm. IMPRESSION: Mild central vascular congestion. Minimal retrocardiac haziness, likely subsegmental atelectasis. Developing pneumonia cannot be excluded in the appropriate clinical context. Signed by: Dr. Ania Buckner MD on 03/19/2020 12:30 AM Dictated By: ANIA BUCKNER MD Transcribed By: SONAM on 03/19/2029 COPY TO: JC DYER MD B-TYPE NATRIURETIC PEPTIDE 2020-03-16 04:42:00 Test Item B-TYPE NATRIURETIC PEPTIDE (test code = BNP) 36.08 pgram/mL 0-100 N COVID 19 INHOUSE [id number] 03:46:00* Test Item Value Reference Range Interpretation Comments COVID 19 INHOUSE AG (test code = [id number]) NEGATIVE BASIC METABOLIC [id number] 03:41:00* Test Item Value Reference Range Interpretation [...] code = CA) 8.7 mg/dL 8.5-10.1 N [id number] 03:41:00* Test Item Value Reference Range Interpretation Comments TROPONIN-I (test code = TROPI) <0.015 ng/mL 0-0.045 N - XR CHEST 1 [id number] 03:29:00 FAX: Ari Moreno DO [phone] [place]: St: [facility] FAX: Roshan Petty DO Name: VIRA MESSINA [facility] : 1955 Age/S: 64/F [address] [facility] Unit #: [id number] Loc: [place] [address] Phys: Roshan Petty DO Acct: [id number] Dis Date: Status: REG ER PHONE #: [phone] Exam Date: 03/16/2020314 FAX #: [phone] Reason: CHEST PAIN EXAMS: CPT CODE: [id number] XR CHEST 1 V 87450 EXAM: - XR CHEST 1 V COMPARISON: [...] at 0329 Reported and s igned by: Jc Muñoz M.D. CC: Ari Carmichael; Roshan Petty DO Technologist: RT LEO Trnscrd Date/Time/By: 03/16/2020 (0329) : By: Fabrizio 1 Orig Print D/T: [...] MPV) 9.4 fL 6.7-11.0 N CBC W/O [id number] 03:07:00* Test Item Value Reference Range Interpretation [...] code = MPV) fL 6.7-11.0 B-TYPE NATRIURETIC [id number] 14:27:00* Test Item Value Reference Range Interpretation Comments B-TYPE NATRIURETIC PEPTIDE (test code = BNP) 110.41 pgram/mL 0-100 H Coronavirus 2019 nCoV [id number] 14:21:00* Test Item Value Reference Range Interpretation Comments Coronavirus 2019 nCoV Bedside (test code = [id number]) Negative Is patient requiring admission or transfer? YIndication for rapid COVID-19 testi ng: Mod Clinical SuspicionLACTIC ACID 2020-01-27 13:55:00* Test Item Value Reference Range Interpretation Comments LACTIC ACID (test code = LACT) 2.7 mmol/L 0.4-1.9 HH Results called to AUDI MARIEUAZ1377bi V.LAB.OA 01/27/20 1354Critical results verified and read back by Nurse? Y BASIC METABOLIC [id number] 13:44:00* Test Item Value Reference Range Interpretation [...] CA) 9.1 mg/dL 8.5-10.1 N HEPATIC FUNCTION [id number] 13:44:00* Test Item Value Reference Range Interpretation [...] code = LDH) 171 IUnit/L 84-246 N [id number] 13:44:00* Test Item Value Reference Range Interpretation Comments LIPASE (test code = LIP) 35 U/L 73.0-393.0 L [id number] 13:44:00* Test Item Value Reference Range Interpretation Comments TROPONIN-I (test code = TROPI) <0.015 ng/mL 0-0.045 N [id number] 13:44:00* Test Item Value Reference Range Interpretation Comments FERRITIN (test code = ASHOK) 16 ng/mL 8-388 N - XR CHEST 1 [id number] 13:41:00 FAX: Ari Moreno DO [phone] [place]: B St: REG FAX: Roshan Petty DO Name: VIRA MESSINA [facility] : 1955 Age/S: 64/F [address] Unit #: [id number] Loc: [place] [address] Phys: Roshan Petty DO Acct: [id number] Dis Date: Status: REG ER PHONE #: [phone] Exam Date: 01/27/2020 1325 FAX #: [phone] Reason: SHORTNESS OF BREATH EXAMS: CPT CODE: [id number] XR CHEST 1 V 91666 REASON FOR EXAM: SHORTNESS OF BREATH Exam Order Date: 01/27/2020 12:31 PM Ordering M.DTed: Roshan Ptety DO PROCEDURE: - XR CHEST 1 V [...] IMPRESSION: No acute cardiopulmonary proces s. Location: [facility] at 1341 Reported and signed by: Isaiah Archuleta MD CC: Ari Carmichael; Roshan Petty DO Technologist: RT ALESSIO(R) Trnscrd Shama ate/Time/By: 01/27/2020 (5892) : By: AndreeaRR31 Orig Print D/T: S: 01/10 (1056) PAGE 1 Signed Ken bertrand [id number] 13:34:00* Test Item Value Reference Range Interpretation Comments D-DIMER (test code = DDIMER) 973.00 ng/mLFEU 0-500 HH Results called to [id number] by VTedLABHAL 01/27/20 1333Critical results verified and read back [...] skin infections -Liver cirrhosis - BASIC METABOLIC [id number] 13:33:00* Test Item Value Reference Range Interpretation [...] code = CA) mg/dL 8.5-10.1 HEPATIC FUNCTION [id number] 13:33:00* Test Item Value Reference Range Interpretation [...] DEHYDROGENASE(LDH) (test code = LDH) IUnit/L 84-246 [id number] 13:33:00* Test Item Value Reference Range Interpretation Comments LIPASE (test code = LIP) U/L 73.0-393.0 [id number] 13:33:00* Test Item Value Reference Range Interpretation Comments TROPONIN-I (test code = TROPI) ng/mL 0-0.045 [id number] 13:33:00* Test Item Value Reference Range Interpretation Comments FERRITIN (test code = ASHOK) ng/mL 8-388 C REACTIVE [id number] 13:33:00* Test Item Value Reference Range Interpretation Comments C REACTIVE PROTEIN (test code = CRP) <0.29 mg/dL 0-0.3 N CBC W/AUTO [id number] 13:15:00* Test Item Value Reference Range Interpretation [...] K/mm3 0.0-0.1 N CHEST SINGLE (PORTABLE)2020-01-26 23:17:00 [place] [address] Patient Name: VIRA MESSINA MR #: [id number] : 1955 Age/Sex: 64/F Req #: [id number] Adm Physician: Ordered by: MALGORZATA CERVANTES DO Report #: [id number] Location: ER Room/Bed: Procedure: [id number] DX/CHEST SINGLE (PORTABLE) Exam Date: 01/26/20 Exam Time: 0265 REPORT STATUS: Signed Examination: Si ngle AP [...] on 01/26/2020 11:19 PM Dictated By: TREVOR WIHTNEY MD 18 Transcribed By: SONAM on 01/10 COPY TO: MALGORZATA CERVANTES DO Blood leukocytes automated count (number/volume)2020-01-26 22:41:00* Test Item Value Reference Range Interpretation Comments White Blood Count (test code = 6690-2) 13.71 4.8-10.8 [facility] automated count (number/volume)2020-01-26 22:41:00* Test Item Value Reference Range Interpretation Comments Red Blood Count (test code = 789-8) 3.65 3.6-5.1 [facility] hemoglobin measurement (moles/volume)2020-01-26 22:41:00* Test Item Value Reference Range Interpretation Comments Hemoglobin (test code = 37573-7) 10.6 12.0-16.0 [facility] HospitalAutomated blood hematocrit (volume fraction)2020-01-26 22:41:00* Test Item Value Reference Range Interpretation Comments Hematocrit (test code = 4544-3) 32.6 34.2-44.1 [facility] HospitalAutom[facility] erythrocyte mean corpuscular [id number] 22:41:00* Test Item Value Reference Range Interpretation Comments Mean Corpuscular Volume (test code = 787-2) 89.3 81-99 [facility] erythrocyte mean corpuscular hemoglobin (mass per erythrocyte)2020-01-26 22:41:00* Test Item Value Reference Range Interpretation Comments Mean Corpuscular Hemoglobin (test code = 785-6) 29.0 28-32 [facility] erythrocyte mean corpuscular hemoglobin concentration measurement (mass/volume)2020-01-26 22:41:00* Test Item Value Reference Range Interpretation Comments Mean Corpuscular Hemoglobin Concent (test code = 786-4) 32.5 31-35 [facility] HospitalRDW FvqCk-[id number] 22:41:00* Test Item Value Reference Range Interpretation Comments Red Cell Distribution Width (test code = 60876-4) 15.2 11.7 -14.4 [facility] blood platelet count (count/volume)2020-01-26 22:41:00* Test Item Value Reference Range Interpretation Comments Platelet Count (test code = 777-3) 270 140-360 [facility] blood segmented neutrophil count as percentage of total ptbcezheab8557-93-94 22:41:00* Test Item Value Reference Range Interpretation Comments Neutrophils (%) (Auto) (test code = 80483-8) 73.6 38.7-80.0 [facility] HospitalAutom[facility] blood lymphocyte count as percentage ot total exebvunfoy0161-06-62 22:41:00* Test Item Value Reference Range Interpretation Comments Lymphocytes (%) (Auto) (test code = 736-9) 18.2 18.0-39.1 [facility] blood monocyte count as percentage of total euqfjcamoq6838-85-05 22:41:00* Test Item Value Reference Range Interpretation Comments Monocytes (%) (Auto) (test code = 5905-5) 6.3 4.4-11.3 [facility] blood eosinophil count as percentage of total sionkgwidi4019-29-17 22:41:00* Test Item Value Reference Range Interpretation Comments Eosinophils (%) (Auto) (test code = 713-8) 1.0 0.0-6.0 [facility] blood basophil count as percentage of total qscyrdamai1520-15-05 22:41:00* Test Item Value Reference Range Interpretation Comments Basophils (%) (Auto) (test code = 706-2) 0.4 0.0-1.0 [facility] HospitalFluoroscopic procedure less than one hour nnpqviot6448-78-87 22:41:00* Test Item Value Reference Range Interpretation Comments IM GRANULOCYTES % (test code = IM GRANULOCYTES %) 0.5 0.0- 1.0 [facility]Autom[facility] blood neutrophil count 2020-01-26 22:41:00* Test Item Value Reference Range Interpretation Comments Neutrophils # (Auto) (test code = 751-8) 10.1 2.1-6.9 [facility] HospitalBlood lymphocytes count (number/volume) 2020-01-26 22:41:00* Test Item Value Reference Range Interpretation Comments Lymphocytes # (Auto) (test code = 52846-8) 2.5 1.0-3.2 [facility] monocytes automated count (number/volume)2020-01-26 22:41:00* Test Item Value Reference Range Interpretation Comments Monocytes # (Auto) (test code = 742-7) 0.9 0.2-0.8 [facility] HospitalAutomated blood eosinophil count 2020-01-26 22:41:00* Test Item Value Reference Range Interpretation Comments Eosinophils # (Auto) (test code = 711-2) 0.1 0.0-0.4 [facility] HospitalAutomated blood basophil count (count/volume)2020-01-26 22:41:00* Test Item Value Reference Range Interpretation Comments Basophils # (Auto) (test code = 704-7) 0.1 0.0-0.1 [facility] HospitalFluoroscopic procedure less than one hour axqttonz7134-15-18 22:41:00* Test Item Value Reference Range Interpretation Comments Absolute Immature Granulocyte (auto (jasvir t code = Absolute Immature Granulocyte (auto) 0.07 0-0.1 [facility] sodium measurement (moles/volume)2020-01-26 22:41:00* Test Item Value Reference Range Interpretation Comments Sodium Level (test code = 2951-2) 132 136-145 [facility] or plasma potassium measurement (moles/volume)2020-01-26 22:41:00* Test Item Value Reference Range Interpretation Comments Potassium Level (test code = 2823-3) 4.0 3.5-5.1 [facility] or plasma chloride measurement (moles/volume)2020-01-26 22:41:00* Test Item Value Reference Range Interpretation Comments Chloride Level (test code = 2075-0) 97 98-107 [facility]erum or plasma carbon dioxide, total measurement (moles/volume)2020-01-26 22:41:00* Test Item Value Reference Range Interpretation Comments Carbon Dioxide Level (test code = 2028-9) 27 22-29 [facility]um or plasma anion yhw5465-71-02 22:41:00* Test Item Value Reference Range Interpretation Comments Anion Gap (test code = 83992-4) 12.0 8-16 [facility] or plasma urea nitrogen measurement (mass/volume)2020-01-26 22:41:00* Test Item Value Reference Range Interpretation Comments Blood Urea Nitrogen (test code = 3094-0) 8 7-26 [facility]um or plasma creatinine measurement (mass/volume)2020-01-26 22:41:00* Test Item Value Reference Range Interpretation Comments Creatinine (test code = 2160-0) 0.69 0.57-1.11 [facility] or plasma urea nitrogen/creatinine mass twpvi7148-47-33 22:41:00* Test Item Value Reference Range Interpretation Comments BUN/Creatinine Ratio (test code = 3097-3) 12 6-25 [facility] HospitalEstimated glomerular filtration rate (GFR) savkokocbivvk9223-72-94 22:41:00* Test Item Value Reference Range Interpretation Comments Estimat Glomerular Filtration Rate (test code = 518097936) > 60 >60 Ranges were taken from the National Kidney Disease Education Program and the [facility] literature.Reference ranges:60 or greater: Zwcpxx57-34 ( for 3 consecutive months): Chronic kidney disease 15 or less: Kidney failureColumbus Community HospitalGlucose rjpdkvkexmx3383-79-68 22:41:00* Test Item Value Reference Range Interpretation Comments Glucose Level (test code = FBC3518) 100 74-118 [facility] or plasma calcium measurement (mass/volume)2020-01-26 22:41:00* Test Item Value Reference Range Interpretation Comments Calcium Level (test code = 00633-1) 8.8 8.4-10.2 [facility] or plasma total bilirubin measurement (mass/volume)2020-01-26 22:41:00* Test Item Value Reference Range Interpretation Comments Total Bilirubin (test code = 1975-2) 0.2 0.2-1.2 [facility] HospitalFluoroscopic procedure less than one hour nrwyxltd0782-05-09 22:41:00* Test Item Value Reference Range Interpretation Comments Aspartate Amino Transf (AST/SGOT) (test code = Aspartate Amino Transf (AST/SGOT)) 17 5-34 [facility] Hospitalerum or plasma alanine aminotransferase measurement (enzymatic activity/volume)2020-01-26 22:41:00* Test Item Value Reference Range Interpretation Comments Alanine Aminotransferase (ALT/SGPT) (test code = 1742-6) 7 0-55 [facility] Hospitalerum or plasma protein measurement (mass/volume)2020-01-26 22:41:00* Test Item Value Reference Range Interpretation Comments Total Protein (test code = 2885-2) 7.3 6.5-8.1 [facility] Hospitalerum or plasma albumin measurement (mass/volume)2020-01-26 22:41:00* Test Item Value Reference Range Interpretation Comments Albumin (test code = 1751-7) 3.5 3.5-5.0 [facility] HospitalPlasma globulin measurement (mass/volume) 2020-01-26 22:41:00* Test Item Value Reference Range Interpretation Comments Globulin (test code = 04864-1) 3.8 2.3-3.5 [facility]um or plasma albumin/globulin mass ccghj2751-22-90 22:41:00* Test Item Value Reference Range Interpretation Comments Albumin/Globulin Ratio (test code = 1759-0) 0.9 0.8-2.0 [facility] Hospitalerum or plasma alkaline phosphatase measurement (enzymatic activity/volume)2020-01-26 22:41:00* Test Item Value Reference Range Interpretation Comments Alkaline Phosphatase (test code = 6768-6) 81 40-150 [facility] HospitalBNP Ejp-gVmf3829-04-16 22:41:00* Test Item Value Reference Range Interpretation Comments B-Type Natriuretic Peptide (test code = 50443-7) 14.7 0-100 [facility] HospitalLACTIC UMMP9069-02-66 00:00:00* Test Item Value Reference Range Interpretation Comments LACTIC ACID (test code = LACT) 4.4 mmol/L 0.4-1.9 Results called to [id number] by [email or web address].SANDOVAL 01/14/20 0000Critical results verified and read back by Nurse? Y PATIENT UNDER INVESTIGATION FOR VMPME10NXXPY 19 INHOUSE OB3711-79-35 10:34:00* Test Item Value Reference Range Interpretation Comments COVID 19 INHOUSE AG (test code = [id number]) NEGATIVE Is patient requiring admission or transfer? YIndication for rapid COVID-19 testi ng: Mod Clinical SuspicionPATIENT UNDER I NVESTIGATION FOR RHFYB33H-FPTK NATRIURETIC [id number] 08:41:00* Test Item Value Reference Range Interpretation Comments B-TYPE NATRIURETIC PEPTIDE (test code = BNP) 92.8 pgram/mL 0-100 N C REACTIVE [id number] 07:51:00* Test Item Value Reference Range Interpretation Comments C REACTIVE PROTEIN (test code = CRP) <0.29 mg/dL 0-0.3 N - XR CHEST 1 [id number] 07:44:00 FAX: Ari Moreno DO [phone] [place]: B St: ADM FAX: Ghulam Saha MD Name: VIRA MESSINA [facility] : 1955 Age/S: 64/F [address] [facility] Unit #: [id number] Loc: [place] [address] Phys: Ghulam Saha MD Acct: [id number] Dis Date: Status: ADM IN PHONE #: [phone] Exam Date: 01/13/2020727 FAX #: [phone] Reason: SHORTNESS OF BREATH EXAMS: CPT CODE: [id number] XR CHEST 1 V 14377 HISTORY: SHORTNESS OF BREATH TECHNIQUE: AP chest x-ray COMPARISON: 11/26/19 FINDINGS: No airspace consolidation or pleural effusion. Normal heart size. Atherosclerotic vascular calcification of the thoracic aorta. Degenerative changes of the spine. IMPRESSION: No radiographic evidence of acute cardiopulmonary process. LOCATION: LP at 0744 Reported and signed by: Jolene Braun CC: Ari Carmichael; Ghulam Saha MD Technologist: Leatha Lockett(Shane) Trnscrd Da te/Time/By: 01/13/2020 (0744) : By: AndreeaLDP1 Orig Print D/T: S: 01/12 (0749) PAGE 1 Signed Report LACTIC [id number] 07:42:00* Test Item Value Reference Range Interpretation Comments LACTIC ACID (test code = LACT) 2.1 mmol/L 0.4-1.9 HH Results called to DR SAHA by GIANCARLO 01/13/20 0742Critical results verified and read back by Nurse? Y BASIC METABOLIC [id number] 07:40:00* Test Item Value Reference Range Interpretation [...] CA) 9.0 mg/dL 8.5-10.1 N HEPATIC FUNCTION [id number] 07:40:00* Test Item Value Reference Range Interpretation [...] code = LDH) 153 IUnit/L 84-246 N [id number] 07:40:00* Test Item Value Reference Range Interpretation Comments LIPASE (test code = LIP) 22 U/L 73.0-393.0 L [id number]-[id number] 07:40:00* Test Item Value Reference Range Interpretation Comments TROPONIN-I (test code = TROPI) <0.015 ng/mL 0-0.045 N [id number] 07:40:00* Test Item Value Reference Range Interpretation Comments FERRITIN (test code = ASHOK) 11 ng/mL 8-388 N BASIC METABOLIC [id number] 07:29:00* Test Item Value Reference Range Interpretation [...] code = CA) mg/dL 8.5-10.1 HEPATIC FUNCTION [id number] 07:29:00* Test Item Value Reference Range Interpretation [...] DEHYDROGENASE(LDH) (test code = LDH) IUnit/L 84-246 [id number] 07:29:00* Test Item Value Reference Range Interpretation Comments LIPASE (test code = LIP) U/L 73.0-393.0 [id number]-[id number] 07:29:00* Test Item Value Reference Range Interpretation Comments TROPONIN-I (test code = TROPI) ng/mL 0-0.045 [id number] 07:29:00* Test Item Value Reference Range Interpretation Comments FERRITIN (test code = ASHOK) ng/mL 8-388 CBC W/AUTO [id number] 06:36:00* Test Item Value Reference Range Interpretation [...] = MDIFF) NO CHEST SINGLE (PORTABLE)2019-12-18 17:25:00 [place] [address] Patient Name: VIRA MESSINA MR #: [id number] : 1955 Age/Sex: 64/F Req #: [id number] Adm Physician: Ordered by: NATTY TEE MD Report #: [id number] Location: ER Room/Bed: Procedure: [id number] DX/CHEST SINGLE (PORTABLE) Exam Date: 12/18/19 Exam [...] Count (test code = 6690-2) 6.42 4.8-10.8 [facility] automated count (number/volume)2019-12-18 16:09:00* Test Item Value Reference Range Interpretation Comments Red Blood Count (test code = 789-8) 4.12 3.6-5.1 [facility] measurement (moles/volume)2019-12-18 16:09:00* Test Item Value Reference Range Interpretation Comments Hemoglobin (test code = 04810-9) 11.8 12.0-16.0 [facility]Automated blood hematocrit (volume fraction)2019-12-18 16:09:00* Test Item Value Reference Range Interpretation Comments Hematocrit (test code = 4544-3) 37.0 34.2-44.1 [facility] erythrocyte mean corpuscular aevbbv8643-61-22 16:09:00* Test Item Value Reference Range Interpretation Comments Mean Corpuscular Volume (test code = 787-2) 89.8 81-99 [facility] eryth[facility] mean corpuscular hemoglobin (mass per erythrocyte)2019-12-18 16:09:00* Test Item Value Reference Range Interpretation Comments Mean Corpuscular Hemoglobin (test code = 785-6) 28.6 28-32 [facility] erythrocyte mean corpuscular hemoglobin concentration measurement (mass/volume)2019-12-18 16:09:00* Test Item Value Reference Range Interpretation Comments Mean Corpuscular Hemoglobin Concent (test code = 786-4) 31.9 31-35 [facility] HospitalRDW RtcZp-Utu1998-58-07 16:09:00* Test Item Value Reference Range Interpretation Comments Red Cell Distribution Width (test code = 43103-6) 14.5 11.7 -14.4 [facility]Autom[facility] blood platelet count (count/volume)2019-12-18 16:09:00* Test Item Value Reference Range Interpretation Comments Platelet Count (test code = 777-3) 291 140-360 [facility]Autom[facility] blood segmented neutrophil count as percentage of total pgdmlbgqqn5858-80-74 16:09:00* Test Item Value Reference Range Interpretation Comments Neutrophils (%) (Auto) (test code = 98537-4) 41.7 38.7-80.0 [facility] HospitalAutom[facility] blood lymphocyte count as percentage ot total klmbftexbp6336-79-79 16:09:00* Test Item Value Reference Range Interpretation Comments Lymphocytes (%) (Auto) (test code = 736-9) 44.5 18.0-39.1 [facility]Autom[facility] blood monocyte count as percentage of total iojywhzmxg3177-89-51 16:09:00* Test Item Value Reference Range Interpretation Comments Monocytes (%) (Auto) (test code = 5905-5) 11.4 4.4-11.3 [facility] HospitalAutom[facility] blood eosinophil count as percentage of total htzqyjsqbs6168-69-30 16:09:00* Test Item Value Reference Range Interpretation Comments Eosinophils (%) (Auto) (test code = 713-8) 1.6 0.0-6.0 [facility] HospitalAutom[facility] blood basophil count as percentage of total ewwaqcwynw0599-43-43 16:09:00* Test Item Value Reference Range Interpretation Comments Basophils (%) (Auto) (test code = 706-2) 0.6 0.0-1.0 [facility] HospitalFluoroscopic procedure less than one hour xpwtdubz8593-66-50 16:09:00* Test Item Value Reference Range Interpretation Comments IM GRANULOCYTES % (test code = IM GRANULOCYTES %) 0.2 0.0- 1.0 [facility] HospitalAutomated blood neutrophil count 2019-12-18 16:09:00* Test Item Value Reference Range Interpretation Comments Neutrophils # (Auto) (test code = 751-8) 2.7 2.1-6.9 [facility] HospitalBlood lymphocytes count (number/volume) 2019-12-18 16:09:00* Test Item Value Reference Range Interpretation Comments Lymphocytes # (Auto) (test code = 25193-6) 2.9 1.0-3.2 [facility] HospitalBlood monocytes automated count (number/volume)2019-12-18 16:09:00* Test Item Value Reference Range Interpretation Comments Monocytes # (Auto) (test code = 742-7) 0.7 0.2-0.8 [facility] HospitalAutomated blood eosinophil count 2019-12-18 16:09:00* Test Item Value Reference Range Interpretation Comments Eosinophils # (Auto) (test code = 711-2) 0.1 0.0-0.4 [facility] HospitalAutomated blood basophil count (count/volume)2019-12-18 16:09:00* Test Item Value Reference Range Interpretation Comments Basophils # (Auto) (test code = 704-7) 0.0 0.0-0.1 [facility] HospitalFluoroscopic procedure less than one hour ibjoxakv7789-05-18 16:09:00* Test Item Value Reference Range Interpretation Comments Absolute Immature Granulocyte (auto (jasvir t code = Absolute Immature Granulocyte (auto) 0.01 0-0.1 [facility] HospitalProthrombin time (PT) in platelet poor plasma by coagulation prngf6466-53-60 16:09:00* Test Item Value Reference Range Interpretation Comments Prothrombin Time (test code = 5902-2) 11.4 11.9-14.5 [facility] HospitalINR in Platelet poor plasma by Coagulation uverg7024-99-53 16:09:00* Test Item Value Reference Range Interpretation Comments Prothromb Time International Ratio (test code = 6301-6) 0.79 Oral Anticoagulant Therapy INR Values:1. Low Intensity Therapy 1.5 - 2.02 . Moderate Intensity Therapy 2.0 - 3.03. High Intensity Therapy(1) 2.5 - 3. 54. High Intensity Therapy(2) 3.0 - 4.05. Panic Value INR > 5.0 [facility] HospitalActivated partial thromboplastin time (aPTT) in platelet poor plasma by coagulation qjgyw0430-70-36 16:09:00* Test Item Value Reference Range Interpretation Comments Activated Partial Thromboplast Time (test code = 93996-0) 32.4 23.8-35.5 [facility] or plasma sodium measurement (moles/volume)2019-12-18 16:09:00* Test Item Value Reference Range Interpretation Comments Sodium Level (test code = 2951-2) 137 136-145 [facility] Hospitalerum or plasma potassium measurement (moles/volume)2019-12-18 16:09:00* Test Item Value Reference Range Interpretation Comments Potassium Level (test code = 2823-3) 4.3 3.5-5.1 [facility] Hospitalerum or plasma chloride measurement (moles/volume)2019-12-18 16:09:00* Test Item Value Reference Range Interpretation Comments Chloride Level (test code = 2075-0) 105 98-107 [facility] Hospitalerum or plasma carbon dioxide, total measurement (moles/volume)2019-12-18 16:09:00* Test Item Value Reference Range Interpretation Comments Carbon Dioxide Level (test code = 2028-9) 25 22-29 [facility] Hospitalerum or plasma anion fqw4144-63-83 16:09:00* Test Item Value Reference Range Interpretation Comments Anion Gap (test code = 28540-3) 11.3 8-16 [facility] Hospitalerum or plasma urea nitrogen measurement (mass/volume)2019-12-18 16:09:00* Test Item Value Reference Range Interpretation Comments Blood Urea Nitrogen (test code = 3094-0) 7 7-26 [facility] Hospitalerum or plasma creatinine measurement (mass/volume)2019-12-18 16:09:00* Test Item Value Reference Range Interpretation Comments Creatinine (test code = 2160-0) 0.69 0.57-1.11 [facility] Hospitalerum or plasma urea nitrogen/creatinine mass aioae4231-11-62 16:09:00* Test Item Value Reference Range Interpretation Comments BUN/Creatinine Ratio (test code = 3097-3) 10 6-25 [facility] HospitalEstimated glomerular filtration rate (GFR) ryjgfeamlrkzz6574-33-93 16:09:00* Test Item Value Reference Range Interpretation Comments Estimat Glomerular Filtration Rate (test code = 377558623) > 60 >60 Ranges were taken from the National Kidney Disease Education Program and the [facility] Kidney Foundation literature.Reference ranges:60 or greater: Hkdtyr80-32 ( for 3 consecutive months): Chronic kidney disease 15 or less: Kidney failureColumbus Community HospitalGlucose pujpznkxebc5824-23-11 16:09:00* Test Item Value Reference Range Interpretation Comments Glucose Level (test code = XTM4440) 100 74-118 [facility] Hospitalerum or plasma calcium measurement (mass/volume)2019-12-18 16:09:00* Test Item Value Reference Range Interpretation Comments Calcium Level (test code = 17933-7) 9.2 8.4-10.2 [facility] Hospitalerum or plasma total bilirubin measurement (mass/volume)2019-12-18 16:09:00* Test Item Value Reference Range Interpretation Comments Total Bilirubin (test code = 1975-2) 0.2 0.2-1.2 [facility] HospitalFluoroscopic procedure less than one hour lwvndtby6969-95-77 16:09:00* Test Item Value Reference Range Interpretation Comments Aspartate Amino Transf (AST/SGOT) (test code = Aspartate Amino Transf (AST/SGOT)) 16 5-34 [facility] Hospitalerum or plasma alanine aminotransferase measurement (enzymatic activity/volume)2019-12-18 16:09:00* Test Item Value Reference Range Interpretation Comments Alanine Aminotransferase (ALT/SGPT) (test code = 1742-6) < 6 0-55 [facility] Hospitalerum or plasma protein measurement (mass/volume)2019-12-18 16:09:00* Test Item Value Reference Range Interpretation Comments Total Protein (test code = 2885-2) 7.1 6.5-8.1 [facility] Hospitalerum or plasma albumin measurement (mass/volume)2019-12-18 16:09:00* Test Item Value Reference Range Interpretation Comments Albumin (test code = 1751-7) 3.6 3.5-5.0 [facility] HospitalPlasma globulin measurement (mass/volume) 2019-12-18 16:09:00* Test Item Value Reference Range Interpretation Comments Globulin (test code = 55262-7) 3.5 2.3-3.5 [facility] Hospitalerum or plasma albumin/globulin mass pqwiz6933-94-61 16:09:00* Test Item Value Reference Range Interpretation Comments Albumin/Globulin Ratio (test code = 1759-0) 1.0 0.8-2.0 [facility] Hospitalerum or plasma alkaline phosphatase measurement (enzymatic activity/volume)2019-12-18 16:09:00* Test Item Value Reference Range Interpretation Comments Alkaline Phosphatase (test code = 6768-6) 88 40-150 [facility] HospitalBNP Brw-xVdm5442-81-07 16:09:00* Test Item Value Reference Range Interpretation Comments B-Type Natriuretic Peptide (test code = 75215-4) < 10.0 0-100 [facility] Hospitalerum or plasma creatine kinase measurement (enzymatic activity/volume)2019-12-18 16:09:00* Test Item Value Reference Range Interpretation Comments Creatine Kinase (test code = 2157-6) 46 29-168 [facility] Hospitalerum or plasma creatine kinase MB measurement (mass/volume)2019-12-18 16:09:00* Test Item Value Reference Range Interpretation Comments Creatine Kinase MB (test code = 94056-5) 0.70 0-5.0 [facility] HospitalTroponin I measurement by highly sensitive enzyme xsdmauyusvs3158-16-69 16:09:00* Test Item Value Reference Range Interpretation Comments Troponin I (test code = 32340-6) < 0.001 0-0.300 [facility] HospitalProthrombin time (PT) in platelet poor plasma by coagulation rukkq1561-94-31 16:09:00* Test Item Value Reference Range Interpretation Comments Prothrombin Time (test code = 5902-2) 11.4 11.9-14.5 [facility] HospitalINR in Platelet poor plasma by Coagulation chyyw0746-79-53 16:09:00* Test Item Value Reference Range Interpretation Comments Prothromb Time International Ratio (test code = 6301-6) 0.79 Oral Anticoagulant Therapy INR Values:1. Low Intensity Therapy 1.5 - 2.02 . Moderate Intensity Therapy 2.0 - 3.03. High Intensity Therapy(1) 2.5 - 3. 54. High Intensity Therapy(2) 3.0 - 4.05. Panic Value INR > 5.0 [facility] HospitalActivated partial thromboplastin time (aPTT) in platelet poor plasma by coagulation jheho8521-21-57 16:09:00* Test Item Value Reference Range Interpretation Comments Activated Partial Thromboplast Time (test code = 05811-0) 32.4 23.8-35.5 [facility] Hospitalerum or plasma creatine kinase measurement (enzymatic activity/volume)2019-12-18 16:09:00* Test Item Value Reference Range Interpretation Comments Creatine Kinase (test code = 2157-6) 46 29-168 [facility] Hospitalerum or plasma creatine kinase MB measurement (mass/volume)2019-12-18 16:09:00* Test Item Value Reference Range Interpretation Comments Creatine Kinase MB (test code = 17976-5) 0.70 0-5.0 [facility] HospitalTroponin I measurement by highly sensitive enzyme ezejmndrgne7874-50-54 16:09:00* Test Item Value Reference Range Interpretation Comments Troponin I (test code = 11437-0) < 0.001 0-0.300 [facility] HospitalMAGNESIUM2020-05-16 22:06:00* Test Item Value Reference Range Interpretation Comments MAGNESIUM (test code = MAG) 1.8 mg/dL 1.8-2.4 N B-TYPE NATRIURETIC HDAPLPX8756-58-49 20:39:00* Test Item Value Reference Range Interpretation Comments B-TYPE NATRIURETIC PEPTIDE (test code = BNP) 45.41 pgram/mL 0-100 N BASIC METABOLIC [id number] 20:27:00* Test Item Value Reference Range Interpretation [...] code = CA) 9.0 mg/dL 8.5-10.1 N [id number]-Q8303-38-16 20:27:00* Test Item Value Reference Range Interpretation Comments TROPONIN-I (test code = TROPI) <0.015 ng/mL 0-0.045 N [id number]-MEMLQ6733-13RTUPE4775-25-58 20:24:00* Test Item Value Reference Range Interpretation Comments D-DIMER (test code = DDIMER) 657.00 ng/mLFEU 0-500 HH Results called to [place] [address] by IESHA 11/26/192Critical results verified and read back by [...] skin infections -Liver cirrhosis - BASIC METABOLIC RLCBO5367-05-80 20:13:00* Test Item Value Reference Range Interpretation [...] CALCIUM (test code = CA) mg/dL 8.5-10.1 FIGLGBKR-A2252-80-16 20:13:00* Test Item Value Reference Range Interpretation Comments TROPONIN-I (test code = TROPI) ng/mL 0-0.045 CBC W/O SRRD7090-87-80 20:06:00* Test Item Value Reference Range Interpretation [...] MPV) 9.2 fL 6.7-11.0 N CBC W/O [id number] 20:00:00* Test Item Value Reference Range Interpretation [...] = MPV) fL 6.7-11.0 Coronavirus 2018 nCoV Aouurzz9377-19-51 19:16:00* Test Item Value Reference Range Interpretation Comments Coronavirus 2019 nCoV Bedside (test code = YUWLD21MQONC) Negative Is patient requiring admission or transfer? YIndication for rapid COVID-19 testi ng: Mod Clinical Suspicion- XR CHEST 1 V 2019-11-26 18:21:00 FAX: Ari Moreno [phone] [place]: St: PRE FAX: Junior Corea MD [phone] Name: VIRA MESSINA [facility] : 1955 Age[facility]S: 64[facility]F [address] [facility] [id number] Loc: [place] [address] Phys: Junior Corea MD Acct: [id number] Dis Date: Status: PRE ER PHONE #: [phone] Exam Date: 11/26/2019 181 FAX #: [phone] Reason: Shortness of Breath EXAMS: CPT CODE: [id number] XR CHEST 1 V 86057 REASON FOR EXAM: Shortness of Breath Exam [...] IMPRESSION: No acute cardiopulm onary process. Location: [facility] at 182 Reported and si gned by: Rafita Archuleta MD CC: Ari Carmichael; Junior Corea MD Technologist: RT NAZ(R) Trnscrd Date/Time/By: 11/26/2019 (1820) : By: AndreeaRR31 Orig Print D/T: S: 11/26/2019 (1823) PAGE 1 Signed Report BASIC METABOLIC [id number] 14:04:00* Test Item Value Reference Range Interpretation [...] mg/dL 8.5-10.1 N [V.LAB.SP3 07/03/19 0536]CBC W/AUTO JEVY7587-62-49 12:59:00* Test Item Value Reference Range Interpretation [...] K/mm3 0.0-0.1 N [V.LAB.SP3 07/03/19 0536]B-TYPE NATRIURETIC VRADHYV3656-53-08 14:39:00* Test Item Value Reference Range Interpretation Comments B-TYPE NATRIURETIC PEPTIDE (test code = BNP) 144.74 pgram/mL 0-100 H BASIC METABOLIC KBDTM2886-29-30 14:14:00* Test Item Value Reference Range Interpretation [...] code = CA) 8.9 mg/dL 8.5-10.1 N [id number]-[id number] 14:14:00* Test Item Value Reference Range Interpretation Comments TROPONIN-I (test code = TROPI) <0.015 ng/mL 0-0.045 N BASIC METABOLIC BFKKV7039-17-03 14:04:00* Test Item Value Reference Range Interpretation [...] code = CA) 8.9 mg/dL 8.5-10.1 N [id number]-R5968-66-21 14:04:00* Test Item Value Reference Range Interpretation Comments TROPONIN-I (test code = TROPI) ng/mL 0-0.045 BASIC METABOLIC JQTFP7198-25-31 14:03:00* Test Item Value Reference Range Interpretation [...] CALCIUM (test code = CA) mg/dL 8.5-10.1 GRKVCXJM-R6179-36-21 14:03:00* Test Item Value Reference Range Interpretation Comments TROPONIN-I (test code = TROPI) ng/mL 0-0.045 CBC W/O [id number] 14:00:00* Test Item Value Reference Range Interpretation [...] MPV) 9.2 fL 6.7-11.0 N VENOUS BLOOD FIY6476-57-39 13:32:00* Test Item Value Reference Range Interpretation [...] by dioni 13:32 - 07/02/2019; by garcia durand METHEMOGLOBIN (test code = METHGB) 0.3 % 0.0-1.50 N - XR CHEST 1 [id number] 13:11:00 FAX: Ari Moreno DO [phone] [place]: St: REG FAX: Ghulam Saha MD Name: VIRA MESSINA [facility] : 1955 Age/S: 64/F [address] [facility] Unit #: [id number] Loc: [place] [address] Phys: Ghulam Saha MD Acct: [id number] Dis Date: Status: REG ER PHONE #: [phone] Exam Date: 07/02/2019 1305 FAX #: [phone] Reason: Shortness of Breath EXAMS: CPT CODE: [id number] XR CHEST 1 V 28219 REASON FOR EXAM: Shortness of Breath EXAM [...] Ghulam Saha MD Technologist: GONZALES AC RT(R) Trnscrd Date/Time/By: 07/02/2019 (6561) : By: AndreeaVTL Orig Print D/T: S: 07/02/2019 (3652) PAGE 1 Signed Report BASIC METABOLIC [id number] 02:56:00* Test Item Value Reference Range Interpretation [...] CA) 8.6 mg/dL 8.5-10.1 N BASIC METABOLIC [id number] 02:50:00* Test Item Value Reference Range Interpretation [...] code = CA) mg/dL 8.5-10.1 CBC W/AUTO [id number] 02:35:00* Test Item Value Reference Range Interpretation [...] code = NRBC#) 0.00 K/mm3 0.0-0.1 N [id number] 20:01:00* Test Item Value Reference Range Interpretation Comments GLUBED (test code = GLUBED) 161 mg/dL 74-106 H Performed by certified drill rig operator helper at [facility] CREATINE KINASE (CK)2019-06-30 12:22:00* Test Item Value Reference Range Interpretation Comments CREATINE KINASE (CK) (test code = CK) 39 IUnit/L 26-208 N LACTIC DEHYDROGENASE(LDH)2019-06-30 12:22:00* Test Item Value Reference Range Interpretation Comments LACTIC DEHYDROGENASE(LDH) (test code = LDH) 124 IUnit/L 84-246 N FOLIC [id number] 12:22:00* Test Item Value Reference Range Interpretation Comments FOLIC ACID (test code = FOL) 8.0 ng/mL 3.10-17.50 N KYJSUIOO5817-06-19 12:22:00* Test Item Value Reference Range Interpretation Comments FERRITIN (test code = ASHOK) 40 ng/mL 8-388 N [id number] 12:14:00* Test Item Value Reference Range Interpretation Comments GLYCOSYLATED HEMOGLOBIN (HA1C) (test code = GLYHGB) 5.5 % HbA1 SUGGESTED DIAGNOSIS: HbA1C (%) Diabetic >6.4Prediabetes 5.7 - 6.4Normal <5.7 ESTIMATED AVERAGE GLUCOSE (test code = EAG) 111 MG/DL B-TYPE NATRIURETIC [id number] 12:12:00* Test Item Value Reference Range Interpretation Comments B-TYPE NATRIURETIC PEPTIDE (test code = BNP) 104.46 pgram/mL 0-100 H C REACTIVE [id number] 12:07:00* Test Item Value Reference Range Interpretation Comments C REACTIVE PROTEIN (test code = CRP) 0.98 mg/dL 0-0.3 H LACTIC [id number] 20:36:00* Test Item Value Reference Range Interpretation Comments LACTIC ACID (test code = LACT) 1.4 mmol/L 0.4-1.9 N BASIC METABOLIC [id number] 19:52:00* Test Item Value Reference Range Interpretation [...] code = CA) 8.9 mg/dL 8.5-10.1 N [id number]-[id number] 19:52:00* Test Item Value Reference Range Interpretation Comments TROPONIN-I (test code = TROPI) <0.015 ng/mL 0-0.045 N BASIC METABOLIC [id number] 19:47:00* Test Item Value Reference Range Interpretation [...] code = CA) 8.9 mg/dL 8.5-10.1 N [id number]-[id number] 19:47:00* Test Item Value Reference Range Interpretation Comments TROPONIN-I (test code = TROPI) ng/mL 0-0.045 CBC W/O [id number] 19:46:00* Test Item Value Reference Range Interpretation [...] MPV) 8.9 fL 6.7-11.0 N CBC W/O [id number] 19:42:00* Test Item Value Reference Range Interpretation [...] MPV) fL 6.7-11.0 - XR CHEST 1 [id number] 19:26:00 FAX: Surjit Curtis [phone] [place]: St: REG FAX: Ari Moreno DO [phone] Name: VIRA MESSINA [facility] : 1955 Age/S: 64/F [address] [facility] Unit #: [id number] Loc: [place] [address] Phys: Surjit Finn MD Acct: [id number] Dis Date: Status: REG ER PHONE #: [phone] Exam Date: 06/29/2019 1846 FAX #: [phone] Reason: Shortness of Breath EXAMS: CPT CODE: [id number] XR CHEST 1 V 56102 EXAM: Chest x-ray, one view; INFORMATION: Shortness of breath; IMPRESSION: 1. No evidence of active cardiopulmonary disease. 2. No significant change compared with a study from May 12, 2019. Aortic calcifications. Location code: [facility] at 1925 Reported and signed by: Adam Beckett M.D. CC: Surjit Finn MD; Ari Carmichael Technologist: MIKAYLA DURAND (R); ... Trnscrd Date/Time/By: 06/29/2019 (1925) : By: Gavin Orig Print D/T: S: 06/29/2019 (1928) PAGE 1 Signed Report DRUGS OF ABUSE SCREEN [id number] 20:48:00* Test Item Value Reference Range Interpretation [...] NEGATIVE <300 ng/mL 1732]DRUGS OF ABUSE SCREEN [id number] 20:06:00* Test Item Value Reference Range Interpretation [...] (test code = [place]) NEGATIVE <300 ng/mL 1732]YLONSW3043-59-18 21:14:00* Test Item Value Reference Range Interpretation Comments GLUBED (test code = GLUBED) 96 mg/dL 74-106 N Performed by certified drill rig operator helper at [facility] [id number] 17:19:00* Test Item Value Reference Range Interpretation [...] ANADDITIONAL CHARGE TO THE PATIENT. B-TYPE NATRIURETIC [id number] 16:06:00* Test Item Value Reference Range Interpretation Comments B-TYPE NATRIURETIC PEPTIDE (test code = BNP) 28.85 pgram/mL 0-100 N BASIC METABOLIC [id number] 16:01:00* Test Item Value Reference Range Interpretation [...] code = CA) 9.8 mg/dL 8.5-10.1 N [id number]-[id number] 16:01:00* Test Item Value Reference Range Interpretation Comments TROPONIN-I (test code = TROPI) <0.015 ng/mL 0-0.045 N LACTIC [id number] 15:51:00* Test Item Value Reference Range Interpretation Comments LACTIC ACID (test code = LACT) 0.8 mmol/L 0.4-1.9 N BASIC METABOLIC [id number] 15:47:00* Test Item Value Reference Range Interpretation [...] CALCIUM (test code = CA) mg/dL 8.5-10.1 [id number]-N9429-08-31 15:47:00* Test Item Value Reference Range Interpretation Comments TROPONIN-I (test code = TROPI) ng/mL 0-0.045 CBC W/O [id number] 15:37:00* Test Item Value Reference Range Interpretation [...] MPV) 9.0 fL 6.7-11.0 N CBC W/O [id number] 15:36:00* Test Item Value Reference Range Interpretation [...] code = MPV) fL 6.7-11.0 - XR [facility] 1 [id number] 14:22:00 FAX: Roshan Petty DO [place]: [address] St: REG Name: VIRA PUGH [facility] : [birth year] Age/S: 64/F [address] [facility] Unit #: [id number] Loc: [place] [address] Phys: Roshan Petty DO Acct: [id number] Dis Date: Status: REG ER PHONE #: [phone] Exam Date: 05/12/2019 1350 FAX #: [phone] Reason: Shortness of Breath EXAMS: CPT CODE: [id number] XR CHEST 1 V 86483 REASON FOR EXAM: Shortness of Breath Exam [...] appears similar to the previous exam. Location: [facility] at 1422 Reported and signed by: Rafita Archuleta MD CC: Roshan Petty DO Technologist: RT LAKSHMI(Shane) Trnscrd Date/Time/By: 05/12/20 19 (2638) : By: [email or web address] Orig Print D/T: S: 05/12/2019 (1889) PAGE 1 Signed Report CBC W/AUTO [id number] 04:59:00* Test Item Value Reference Range Interpretation [...] = MDIFF) NO, ONLY SCAN NEEDED DIFFERENTIAL [id number] 04:59:00* Test Item Value Reference Range Interpretation Comments STAIN ACCEPTABILITY (test code = STN ACCEPTABLE) STAIN ACCEPTABLE ANISOCYTOSIS (test code = ANISO) 1+ MACROCYTOSIS (test code = MACR) 1+ PLATELET ESTIMATE (test code = PLTEST) ADEQUATE PLATELET MORPHOLOGY (test code = PLTMORPH) NORMAL [id number]-[id number] 04:15:00* Test Item Value Reference Range Interpretation Comments TROPONIN-I (test code = TROPI) <0.015 ng/mL 0-0.045 N BASIC METABOLIC [id number] 04:13:00* Test Item Value Reference Range Interpretation [...] CA) 9.2 mg/dL 8.5-10.1 N CBC W/AUTO [id number] 03:51:00* Test Item Value Reference Range Interpretation [...] = MDIFF) NO, ONLY SCAN NEEDED DIFFERENTIAL [id number] 03:51:00* Test Item Value Reference Range Interpretation Comments STAIN ACCEPTABILITY (test code = STN ACCEPTABLE) MORPHOLOGY COMMENT (test code = MOC) PLATELET ESTIMATE (test code = PLTEST) PLATELET MORPHOLOGY (test code = PLTMORPH) CBC W/AUTO [id number] 03:49:00* Test Item Value Reference Range Interpretation [...] = MDIFF) NO, ONLY SCAN NEEDED DIFFERENTIAL [id number] 03:49:00* Test Item Value Reference Range Interpretation Comments STAIN ACCEPTABILITY (test code = STN ACCEPTABLE) CABOT RINGS (test code = CAB) MORPHOLOGY COMMENT (test code = MOC) PLATELET ESTIMATE (test code = PLTEST) PLATELET MORPHOLOGY (test code = PLTMORPH) CBC W/AUTO [id number] 03:49:00* Test Item Value Reference Range Interpretation [...] = MDIFF) NO, ONLY SCAN NEEDED DIFFERENTIAL [id number] 03:49:00* Test Item Value Reference Range Interpretation Comments STAIN ACCEPTABILITY (test code = STN ACCEPTABLE) MORPHOLOGY COMMENT (test code = MOC) PLATELET ESTIMATE (test code = PLTEST) PLATELET MORPHOLOGY (test code = PLTMORPH) CBC W/AUTO [id number] 03:49:00* Test Item Value Reference Range Interpretation [...] = MDIFF) NO, ONLY SCAN NEEDED DIFFERENTIAL [id number] 03:49:00* Test Item Value Reference Range Interpretation Comments STAIN ACCEPTABILITY (test code = STN ACCEPTABLE) CABOT RINGS (test code = CAB) MORPHOLOGY COMMENT (test code = MOC) PLATELET ESTIMATE (test code = PLTEST) PLATELET MORPHOLOGY (test code = PLTMORPH) THYROID STIMULATING [id number] 22:36:00* Test Item Value Reference Range Interpretation Comments THYROID STIMULATING HORMONE (test code = TSH) 0.141 uIU/mL 0.36-3.7 4 L TSH REFERENCE RANGES: EUTHYROID: 0.35 - 4.3 mIU/mL HYPO : > 5.5 mIU/mL HYPER : < 0.35 mIU/mL [id number] 22:24:00* Test Item Value Reference Range Interpretation Comments TROPONIN-I (test code = TROPI) <0.015 ng/mL 0-0.045 N COMMENTS TO BILINGUAL SALES ASSISTANT: COLLECT 3 HOURS AFTER PREVIOUS SAMPLEB-TYPE NATRIURETIC [id number] 16:33:00* Test Item Value Reference Range Interpretation Comments B-TYPE NATRIURETIC PEPTIDE (test code = BNP) 18.63 pgram/mL 0-100 N BASIC METABOLIC [id number] 16:21:00* Test Item Value Reference Range Interpretation [...] code = CA) 9.6 mg/dL 8.5-10.1 N [id number] 16:21:00* Test Item Value Reference Range Interpretation Comments LIPASE (test code = LIP) 13 U/L 73.0-393.0 L [id number]-[id number] 16:21:00* Test Item Value Reference Range Interpretation Comments TROPONIN-I (test code = TROPI) <0.015 ng/mL 0-0.045 N BASIC METABOLIC [id number] 16:13:00* Test Item Value Reference Range Interpretation [...] CALCIUM (test code = CA) mg/dL 8.5-10.1 [id number] 16:13:00* Test Item Value Reference Range Interpretation Comments LIPASE (test code = LIP) U/L 73.0-393.0 DYPFGHYQ-[id number] 16:13:00* Test Item Value Reference Range Interpretation Comments TROPONIN-I (test code = TROPI) ng/mL 0-0.045 CBC W/O [id number] 16:09:00* Test Item Value Reference Range Interpretation [...] MPV) 9.3 fL 6.7-11.0 N VENOUS BLOOD [id number] 15:54:00* Test Item Value Reference Range Interpretation Comments VENOUS BLOOD GAS PH (test code = PHV) 7.40 7.30-7.40 N VENOUS BLOOD GAS PCO2 (test code = PCO2V) 22.8 mm Hg 39.0-51.0 LL Results called to and read back by lotus 15:53 03/31/2019; by RateItAll rt VENOUS BLOOD GAS PO2 (test code = PO2V) 45.7 mm Hg 30.0-50.0 N VBG HCO3 (test code = HCO3V) 13.9 mmol/L 17.0-30.0 L VBG BASE EXCESS (test code = QUIQUE) -9.6 mmol/L -5.0-5.0 LL Results called to and read back by lotus 15:53 03/31/2019; by [employer] rt VENOUS BLOOD GAS O2 SAT. (test [...] read back by lotus 15:53 03/31/2019; by [employer] rt METHEMOGLOBIN (test code = METHGB) 0.5 % 0.0-1.50 N - XR CHEST 1 [id number] 15:41:00 FAX: Guhlam Saha MD [place]: B St: REG Name: VIRA PUGH [facility] : [birth year] Age/S: 63/F Eliseo Knowles Unit #: [id number] Loc: [place] [address] Phys: Ghulam Saha MD Acct: [id number] Dis Date: Status: REG ER PHONE #: [phone] Exam Date: 03/31/2019 1540 FAX #: [phone] Reason: Shortness of Breath EXAMS: CPT CODE: [id number] XR CHEST 1 V 29554 REASON FOR EXAM: Shortness of Breath EXAM ORDER DATE: 03/31/2019 3:06 PM Ordering M.D.: Ghulam Saha MD PROCEDURE: - XR CHEST [...] Lindsay hnologist: Milena De La Cruz RT(R); RT LAKSHMI(R) Trnctrd Date/T floyd/By: 03/31/2019 (1546) : By: Colleen Orig Print D/T: S: 9 (4832) PAGE [address] CHEST [id number] 21:24:00 [place] [address] Patient Name: VIRA MESSINA MR #: [id number] : 1955 Age/Sex: 63/F Req #: [id number] Adm Physician: Ordered by: EMILIA MCGUIRE MD Report #: [id number] Location: ER Room/Bed: Procedure: [id number] CT /CT CHEST WO Exam Date: 11/10/18 [...] EMILIA MCGUIRE MD CHEST SINGLE (PORTABLE)2018-11-10 19:50:00 [place] [address] Patient Name: VIRA MESSINA MR #: [id number] : 1955 Age/Sex: 63/F Req #: [id number] Adm Physician: Ordered by: CAMMIE MEJIA MD Report #: [id number] Location: ER Room/Bed: Procedure: [id number] DX /CHEST SINGLE (PORTABLE) Exam Date: Exam [...] Signed by: Dr. Penny Sol M.D. on 7:54 PM Dictated By: STARLA SOL MD, MD 53 Transcribed By: SONAM on 11/10/181953 COPY TO: CAMMIE MEJIA MD Sodium Dxyht9032-22-33 07:00:00* Test Item Value Reference Range Interpretation Comments Sodium Level (test code = 2951-2) 139 136-145 [facility] Drimi5285-55-96 07:00:00* Test Item Value Reference Range Interpretation Comments Potassium Level (test code = 2823-3) 4.0 3.5-5.1 [facility] HospitalChloride Slycx6870-13-70 07:00:00* Test Item Value Reference Range Interpretation Comments Chloride Level (test code = 2075-0) 103 98-107 [facility] HospitalCarbon Dioxide Jcvmv3793-11-61 07:00:00* Test Item Value Reference Range Interpretation Comments Carbon Dioxide Level (test code = 2028-9) 26 22-29 [facility] HospitalAnion Elw2417-36-56 07:00:00* Test Item Value Reference Range Interpretation Comments Anion Gap (test code = 86307-4) 14.0 8-16 [facility] HospitalBlood Urea Aiwnxfdk8275-02-40 07:00:00* Test Item Value Reference Range Interpretation Comments Blood Urea Nitrogen (test code = 3094-0) 12 7-26 [facility] HospitalCreatinine2018-11-30 07:00:00* Test Item Value Reference Range Interpretation Comments Creatinine (test code = 2160-0) 0.61 0.57-1.11 [facility] HospitalBUN/Creatinine Lhise3793-45-31 07:00:00* Test Item Value Reference Range Interpretation Comments BUN/Creatinine Ratio (test code = 3097-3) 20 6-25 [facility] HospitalEstimat Glomerular Filtration Rate 2018-06-11 07:00:00* Test Item Value Reference Range Interpretation Comments Estimat Glomerular Filtration Rate (test code = 700597936) > 60 >60 Ranges were taken from the National Kidney Disease Education Program and the [place] [employer] literature.Reference ranges:60 or greater: Xzztqv49-91 ( for 3 consecutive months): Chronic kidney disease 15 or less: Kidney failureColumbus Community HospitalGlucose Lstwc3974-96-46 07:00:00* Test Item Value Reference Range Interpretation Comments Glucose Level (test code = JRN4262) 66 74-118 L [facility] HospitalCalcium Yfwha1037-37-04 07:00:00* Test Item Value Reference Range Interpretation Comments Calcium Level (test code = 36767-5) 8.8 8.4-10.2 [facility] HospitalMagnesium Xztca6569-15-85 07:00:00* Test Item Value Reference Range Interpretation Comments Magnesium Level (test code = 24117-8) 2.2 1.3-2.1 [facility]odium Utmgc0475-22-32 07:00:00* Test Item Value Reference Range Interpretation Comments Sodium Level (test code = 2951-2) 139 136-145 [facility] HospitalPotassium Iuxeo8813-87-14 07:00:00* Test Item Value Reference Range Interpretation Comments Potassium Level (test code = 2823-3) 4.0 3.5-5.1 [facility] HospitalChloride Lebdc2807-87-91 07:00:00* Test Item Value Reference Range Interpretation Comments Chloride Level (test code = 2075-0) 103 98-107 [facility] HospitalCarbon Dioxide Wudzz6522-68-87 07:00:00* Test Item Value Reference Range Interpretation Comments Carbon Dioxide Level (test code = 2028-9) 26 22-29 [facility] HospitalAnion Rce7248-72-26 07:00:00* Test Item Value Reference Range Interpretation Comments Anion Gap (test code = 86697-8) 14.0 8-16 [facility] HospitalBlood Urea Idvbezlt7229-12-04 07:00:00* Test Item Value Reference Range Interpretation Comments Blood Urea Nitrogen (test code = 3094-0) 12 7-26 [facility] HospitalCreatinine2018-11-30 07:00:00* Test Item Value Reference Range Interpretation Comments Creatinine (test code = 2160-0) 0.61 0.57-1.11 [facility] HospitalBUN/Creatinine Xcjoa7766-33-30 07:00:00* Test Item Value Reference Range Interpretation Comments BUN/Creatinine Ratio (test code = 3097-3) 20 6-25 [facility] HospitalEstimat Glomerular Filtration Rate 2018-06-11 07:00:00* Test Item Value Reference Range Interpretation Comments Estimat Glomerular Filtration Rate (test code = 455397929) > 60 >60 Ranges were taken from the National Kidney Disease Education Program and the [facility] Foundation literature.Reference ranges:60 or greater: Nhbwby47-21 ( for 3 consecutive months): Chronic kidney disease 15 or less: Kidney failureColumbus Community HospitalGlucose Kfnfg2213-16-18 07:00:00* Test Item Value Reference Range Interpretation Comments Glucose Level (test code = PCQ7067) 66 74-118 L [facility] HospitalCalcium Hhmrj5642-10-56 07:00:00* Test Item Value Reference Range Interpretation Comments Calcium Level (test code = 57516-3) 8.8 8.4-10.2 [facility] HospitalMagnesium Gfhdb7904-04-41 07:00:00* Test Item Value Reference Range Interpretation Comments Magnesium Level (test code = 47272-2) 2.2 1.3-2.1 H [facility] HospitalWhite Blood Vrpng7737-45-54 06:57:00* Test Item Value Reference Range Interpretation Comments White Blood Count (test code = 6690-2) 6.16 4.8-10.8 [facility] HospitalRed Blood Wkbhi8058-00-45 06:57:00* Test Item Value Reference Range Interpretation Comments Red Blood Count (test code = 789-8) 3.12 3.6-5.1 L [facility] HospitalHemoglobin2018-11-30 06:57:00* Test Item Value Reference Range Interpretation Comments Hemoglobin (test code = 68899-4) 10.1 12.0-16.0 L [facility] HospitalHematocrit2018-11-30 06:57:00* Test Item Value Reference Range Interpretation Comments Hematocrit (test code = 4544-3) 31.5 34.2-44.1 L [facility] HospitalMean Corpuscular Rppwsk0594-14-53 06:57:00* Test Item Value Reference Range Interpretation Comments Mean Corpuscular Volume (test code = 787-2) 101.0 81-99 H [facility] HospitalMean Corpuscular Hbuokiybqv8913-45-54 06:57:00* Test Item Value Reference Range Interpretation Comments Mean Corpuscular Hemoglobin (test code = 785-6) 32.4 28-32 H [facility] HospitalMean Corpuscular Hemoglobin Concent 2018-06-11 06:57:00* Test Item Value Reference Range Interpretation Comments Mean Corpuscular Hemoglobin Concent (test code = 786-4) 32.1 31-35 [facility] HospitalRed Cell Distribution Lcqty0250-88-49 06:57:00* Test Item Value Reference Range Interpretation Comments Red Cell Distribution Width (test code = 08616-7) 14.4 11.7 -14.4 [facility] HospitalPlatelet Phwjb1172-38-51 06:57:00* Test Item Value Reference Range Interpretation Comments Platelet Count (test code = 777-3) 248 140-360 [facility] HospitalNeutrophils (%) (Auto)2018-06-11 06:57:00 * Test Item Value Reference Range Interpretation Comments Neutrophils (%) (Auto) (test code = 81742-7) 66.4 38.7-80.0 [facility] HospitalLymphocytes (%) (Auto)2018-06-11 06:57:00 * Test Item Value Reference Range Interpretation Comments Lymphocytes (%) (Auto) (test code = 736-9) 15.3 18.0-39.1 L [facility] HospitalMonocytes (%) (Auto)2018-06-11 06:57:00* Test Item Value Reference Range Interpretation Comments Monocytes (%) (Auto) (test code = 5905-5) 13.5 4.4-11.3 H [facility] HospitalEosinophils (%) (Auto)2018-06-11 06:57:00 * Test Item Value Reference Range Interpretation Comments Eosinophils (%) (Auto) (test code = 713-8) 4.2 0.0-6.0 [facility] HospitalBasophils (%) (Auto)2018-06-11 06:57:00* Test Item Value Reference Range Interpretation Comments Basophils (%) (Auto) (test code = 706-2) 0.3 0.0-1.0 [facility] HospitalIM GRANULOCYTES %2018-06-11 06:57:00* Test Item Value Reference Range Interpretation Comments IM GRANULOCYTES % (test code = IM GRANULOCYTES %) 0.3 0.0- 1.0 [facility] HospitalNeutrophils # (Auto)2018-06-11 06:57:00* Test Item Value Reference Range Interpretation Comments Neutrophils # (Auto) (test code = 751-8) 4.1 2.1-6.9 [facility] HospitalLymphocytes # (Auto)2018-06-11 06:57:00* Test Item Value Reference Range Interpretation Comments Lymphocytes # (Auto) (test code = 19995-1) 0.9 1.0-3.2 L [facility] HospitalMonocytes # (Auto)2018-06-11 06:57:00* Test Item Value Reference Range Interpretation Comments Monocytes # (Auto) (test code = 742-7) 0.8 0.2-0.8 [facility] HospitalEosinophils # (Auto)2018-06-11 06:57:00* Test Item Value Reference Range Interpretation Comments Eosinophils # (Auto) (test code = 711-2) 0.3 0.0-0.4 [facility] HospitalBasophils # (Auto)2018-06-11 06:57:00* Test Item Value Reference Range Interpretation Comments Basophils # (Auto) (test code = 704-7) 0.0 0.0-0.1 [facility] HospitalAbsolute Immature Granulocyte (auto 2018-06-11 06:57:00* Test Item Value Reference Range Interpretation Comments Absolute Immature Granulocyte (auto (jasvir t code = Absolute Immature Granulocyte (auto) 0.02 0-0.1 [facility] HospitalWhite Blood Fhzmv3409-41-83 06:57:00* Test Item Value Reference Range Interpretation Comments White Blood Count (test code = 6690-2) 6.16 4.8-10.8 [facility] HospitalRed Blood Hjtfz7055-84-84 06:57:00* Test Item Value Reference Range Interpretation Comments Red Blood Count (test code = 789-8) 3.12 3.6-5.1 L [facility] HospitalHemoglobin2018-11-30 06:57:00* Test Item Value Reference Range Interpretation Comments Hemoglobin (test code = 08688-5) 10.1 12.0-16.0 L [facility] HospitalHematocrit2018-11-30 06:57:00* Test Item Value Reference Range Interpretation Comments Hematocrit (test code = 4544-3) 31.5 34.2-44.1 L [facility] HospitalMean Corpuscular Vjpedy4573-92-40 06:57:00* Test Item Value Reference Range Interpretation Comments Mean Corpuscular Volume (test code = 787-2) 101.0 81-99 H [facility] HospitalMean Corpuscular Ydvpmmqmkm1578-97-91 06:57:00* Test Item Value Reference Range Interpretation Comments Mean Corpuscular Hemoglobin (test code = 785-6) 32.4 28-32 H [facility] HospitalMean Corpuscular Hemoglobin Concent 2018-06-11 06:57:00* Test Item Value Reference Range Interpretation Comments Mean Corpuscular Hemoglobin Concent (test code = 786-4) 32.1 31-35 [facility] HospitalRed Cell Distribution Fjcez0367-07-25 06:57:00* Test Item Value Reference Range Interpretation Comments Red Cell Distribution Width (test code = 07733-7) 14.4 11.7 -14.4 [facility] HospitalPlatelet Wpkyv5991-89-91 06:57:00* Test Item Value Reference Range Interpretation Comments Platelet Count (test code = 777-3) 248 140-360 [facility] HospitalNeutrophils (%) (Auto)2018-06-11 06:57:00 * Test Item Value Reference Range Interpretation Comments Neutrophils (%) (Auto) (test code = 31085-5) 66.4 38.7-80.0 [facility] HospitalLymphocytes (%) (Auto)2018-06-11 06:57:00 * Test Item Value Reference Range Interpretation Comments Lymphocytes (%) (Auto) (test code = 736-9) 15.3 18.0-39.1 L [facility] HospitalMonocytes (%) (Auto)2018-06-11 06:57:00* Test Item Value Reference Range Interpretation Comments Monocytes (%) (Auto) (test code = 5905-5) 13.5 4.4-11.3 H [facility] HospitalEosinophils (%) (Auto)2018-06-11 06:57:00 * Test Item Value Reference Range Interpretation Comments Eosinophils (%) (Auto) (test code = 713-8) 4.2 0.0-6.0 [facility] HospitalBasophils (%) (Auto)2018-06-11 06:57:00* Test Item Value Reference Range Interpretation Comments Basophils (%) (Auto) (test code = 706-2) 0.3 0.0-1.0 [facility] HospitalIM GRANULOCYTES %2018-06-11 06:57:00* Test Item Value Reference Range Interpretation Comments IM GRANULOCYTES % (test code = IM GRANULOCYTES %) 0.3 0.0- 1.0 [facility] HospitalNeutrophils # (Auto)2018-06-11 06:57:00* Test Item Value Reference Range Interpretation Comments Neutrophils # (Auto) (test code = 751-8) 4.1 2.1-6.9 [facility] HospitalLymphocytes # (Auto)2018-06-11 06:57:00* Test Item Value Reference Range Interpretation Comments Lymphocytes # (Auto) (test code = 58729-9) 0.9 1.0-3.2 L [facility] HospitalMonocytes # (Auto)2018-06-11 06:57:00* Test Item Value Reference Range Interpretation Comments Monocytes # (Auto) (test code = 742-7) 0.8 0.2-0.8 [facility] HospitalEosinophils # (Auto)2018-06-11 06:57:00* Test Item Value Reference Range Interpretation Comments Eosinophils # (Auto) (test code = 711-2) 0.3 0.0-0.4 [facility] HospitalBasophils # (Auto)2018-06-11 06:57:00* Test Item Value Reference Range Interpretation Comments Basophils # (Auto) (test code = 704-7) 0.0 0.0-0.1 [facility] HospitalAbsolute Immature Granulocyte (auto 2018-06-11 06:57:00* Test Item Value Reference Range Interpretation Comments Absolute Immature Granulocyte (auto (jasvir t code = Absolute Immature Granulocyte (auto) 0.02 0-0.1 [facility] HospitalABDOMEN-1VIEW (KUB)2018-06-11 06:49:00 [place] [address] Patient Name: VIRA MESSINA MR #: [id number] : 1955 Age/Sex: 63/F Req #: [id number] Adm Physician: ALIE DUARTE MD Ordered by: Victoriano Hicks NP Report #: [id number] Location: [facility] Room/Bed: [facility] Procedure: [id number] DX /ABDOMEN-1VIEW (KUB) Exam Date: 06/11/18 Exam [...] 06/11/18648 COPY TO: VICTORIANO HICKS NP Carcinoembryonic Psvgtxi2161-66-49 06:08:00 * Test Item Value Reference Range Interpretation Comments Carcinoembryonic Antigen (test code = 2039-6) 4.0 0.0-4.7 Radha ECLIA methodology Nonsmokers <3.9 Smokers <5.6Performed at: [facility] [address] [id number] Director: Jung Ramirez MD, Phone: [phone] Community HospitalCarcinoembryonic Wcdbzaa7615-98-43 06:08:00* Test Item Value Reference Range Interpretation Comments Carcinoembryonic Antigen (test code = 2039-6) 4.0 0.0-4.7 Radha ECLIA methodology Nonsmokers <3.9 Smokers <5.6Performed at: [facility] [id number] Director: Jung Ramirez MD, Phone: [phone] Community HospitalCHEST SINGLE (PORTABLE)2018-06-10 06:54:00 [place] [address] Patient Name: VIRA MESSINA MR #: [id number] : 1955 Age/Sex: 63/F Req #: [id number] Adm Physician: ALIE DUARTE MD Ordered by: SONNY MEDRANO MAGNETIC TAPE TYPEWRITER OPERATOR Report #: [id number] Location: MED/SURG3 Room/Bed: [facility] Procedure: DX/ CHEST SINGLE (PORTABLE) Exam Date: 06/10/18 [...] on 06/10/18653 COPY TO: SONNY MEDRANO NP [facility]2018-06-10 06:54:00 [place] [address] Patient Name: VIRA MESSINA MR #: [id number] : 1955 Age/Sex: 63/F Req #: [id number] Adm Physician: ALIE DUARTE MD Ordered by: SONNY MEDRANO MAGNETIC TAPE TYPEWRITER OPERATOR Report #: [id number] Location: MED/SURG3 Room/Bed: [facility] Procedure: [id number] DX/ ABDOMEN-1VIEW (KUB) Exam Date: 06/10/18 Exam [...] Thyroid Stimulating Hormone (TSH) (test code = 14941-6) 1.351 0.350-4.940 [facility] HospitalThyroid Stimulating Hormone (TSH) 2018-06-10 06:14:00* Test Item Value Reference Range Interpretation Comments Thyroid Stimulating Hormone (TSH) (test code = 92140-5) 1.351 0.350-4.940 [facility] HospitalPhosphorus Ntszi2702-47-52 05:43:00* Test Item Value Reference Range Interpretation Comments Phosphorus Level (test code = SIT4472) 2.7 2.3-4.7 [facility] HospitalTotal Aszgrnukj0363-80-24 05:43:00* Test Item Value Reference Range Interpretation Comments Total Bilirubin (test code = 1975-2) 0.7 0.2-1.2 [facility] HospitalAspartate Amino Transf (AST/SGOT) 2018-06-10 05:43:00* Test Item Value Reference Range Interpretation Comments Aspartate Amino Transf (AST/SGOT) (test code = Aspartate Amino Transf (AST/SGOT)) 21 5-34 [facility] HospitalAlanine Aminotransferase (ALT/SGPT) 2018-06-10 05:43:00* Test Item Value Reference Range Interpretation Comments Alanine Aminotransferase (ALT/SGPT) (test code = 1742-6) < 6 0-55 [facility] HospitalTotal Hvaweet9251-32-55 05:43:00* Test Item Value Reference Range Interpretation Comments Total Protein (test code = 2885-2) 6.4 6.5-8.1 L [facility] HospitalAlbumin2018-11-29 05:43:00* Test Item Value Reference Range Interpretation Comments Albumin (test code = 1751-7) 2.9 3.5-5.0 L [facility] HospitalGlobulin2018-11-29 05:43:00* Test Item Value Reference Range Interpretation Comments Globulin (test code = 66829-0) 3.5 2.3-3.5 [facility] HospitalAlbumin/Globulin Zuhqv7736-87-74 05:43:00 * Test Item Value Reference Range Interpretation Comments Albumin/Globulin Ratio (test code = 1759-0) 0.8 0.8-2.0 [facility] HospitalAlkaline Cezlhlmfihh5637-63-92 05:43:00* Test Item Value Reference Range Interpretation Comments Alkaline Phosphatase (test code = 6768-6) 65 40-150 [facility] HospitalTriglycerides Rdxlr2624-91-89 05:43:00* Test Item Value Reference Range Interpretation Comments Triglycerides Level (test code = 2571-8) 99 0-149 [facility] HospitalCholesterol Cdenm5028-28-77 05:43:00* Test Item Value Reference Range Interpretation Comments Cholesterol Level (test code = 2093-3) 134 0-199 Less than 200 mg/dL Low Gxnl857 - 239 mg/dL Borderline Mchs812 m g/dl and greater High Risk [facility] HospitalLDL Nttlgjamosf5867-64-43 05:43:00* Test Item Value Reference Range Interpretation Comments LDL Cholesterol (test code = 2089-1) 39 60-130 L [facility] HospitalHDL Zcrjxkorxet9678-35-44 05:43:00* Test Item Value Reference Range Interpretation Comments HDL Cholesterol (test code = 2085-9) 75 40-60 H [facility] HospitalCholesterol/HDL Alqlg3937-38-10 05:43:00 * Test Item Value Reference Range Interpretation Comments Cholesterol/HDL Ratio (test code = 9830-1) 1.8 3.0-3.6 L [facility] HospitalPhosphorus Fwhzf2836-18-18 05:43:00* Test Item Value Reference Range Interpretation Comments Phosphorus Level (test code = SYQ3582) 2.7 2.3-4.7 [facility] HospitalTotal Pnjnlavzb0753-43-37 05:43:00* Test Item Value Reference Range Interpretation Comments Total Bilirubin (test code = 1975-2) 0.7 0.2-1.2 [facility] HospitalAspartate Amino Transf (AST/SGOT) 2018-06-10 05:43:00* Test Item Value Reference Range Interpretation Comments Aspartate Amino Transf (AST/SGOT) (test code = Aspartate Amino Transf (AST/SGOT)) 21 5-34 [facility] HospitalAlanine Aminotransferase (ALT/SGPT) 2018-06-10 05:43:00* Test Item Value Reference Range Interpretation Comments Alanine Aminotransferase (ALT/SGPT) (test code = 1742-6) < 6 0-55 [facility] Fwstwxy0719-54-91 05:43:00* Test Item Value Reference Range Interpretation Comments Total Protein (test code = 2885-2) 6.4 6.5-8.1 L [facility] HospitalAlbumin2018-11-29 05:43:00* Test Item Value Reference Range Interpretation Comments Albumin (test code = 1751-7) 2.9 3.5-5.0 L [facility] HospitalGlobulin2018-11-29 05:43:00* Test Item Value Reference Range Interpretation Comments Globulin (test code = 28486-0) 3.5 2.3-3.5 [facility] HospitalAlbumin/Globulin Boksi2586-96-44 05:43:00 * Test Item Value Reference Range Interpretation Comments Albumin/Globulin Ratio (test code = 1759-0) 0.8 0.8-2.0 [facility] HospitalAlkaline Cwgbjjueizm9182-23-58 05:43:00* Test Item Value Reference Range Interpretation Comments Alkaline Phosphatase (test code = 6768-6) 65 40-150 [facility] HospitalTriglycerides Tiymi1875-60-08 05:43:00* Test Item Value Reference Range Interpretation Comments Triglycerides Level (test code = 2571-8) 99 0-149 [facility] HospitalCholesterol Ytmzk8901-94-65 05:43:00* Test Item Value Reference Range Interpretation Comments Cholesterol Level (test code = 2093-3) 134 0-199 Less than 200 mg/dL Low Zrmu390 - 239 mg/dL Borderline Ueeb443 m g/dl and greater High Risk [facility] HospitalLDL Efazxmvmadn9527-55-23 05:43:00* Test Item Value Reference Range Interpretation Comments LDL Cholesterol (test code = 2089-1) 39 60-130 L [facility] HospitalHDL Drivrktzwgs9717-77-78 05:43:00* Test Item Value Reference Range Interpretation Comments HDL Cholesterol (test code = 2085-9) 75 40-60 H [facility] HospitalCholesterol/HDL Nrxao3546-91-72 05:43:00 * Test Item Value Reference Range Interpretation Comments Cholesterol/HDL Ratio (test code = 9830-1) 1.8 3.0-3.6 L [facility] HospitalHemoglobin A1c Mmtpjry1255-67-71 05:36:00 * Test Item Value Reference Range Interpretation Comments Hemoglobin A1c Percent (test code = Hemoglobin A1c Percent) 4.5 4.0-7.0 [facility] HospitalHemoglobin A1c Xjsdzpn7406-09-79 05:36:00 * Test Item Value Reference Range Interpretation Comments Hemoglobin A1c Percent (test code = Hemoglobin A1c Percent) 4.5 4.0-7.0 [facility] HospitalAmmonia2018-11-29 05:26:00* Test Item Value Reference Range Interpretation Comments Ammonia (test code = 02248-9) 57 31-[address] [facility]2018-11-29 05:26:00* Test Item Value Reference Range Interpretation Comments Ammonia (test code = 19071-5) 57 31-123 [facility] HospitalCT ABDOMEN/PELVIS RD1027-70-20 18:36:00 [place] [address] [place] [address] Patient Name: VIRA MESSINA MR #: [id number] : 1955 Age/Sex: 63/F Req #: [id number] Adm Physician: Ordered by: URBANO CALABRESE MAGNETIC TAPE TYPEWRITER OPERATOR Report #: [id number] Location: ER Room/Bed: Procedure: [id number] C T/CT ABDOMEN/PELVIS WO Exam Date: 06/09/18 [...] on 06/09/181847 CO PY TO: URBANO CALABRESE MAGNETIC TAPE TYPEWRITER OPERATOR Lactic Acid Itksq3408-45-02 15:28:00* Test Item Value Reference Range Interpretation Comments Lactic Acid Level (test code = Lactic Acid Level) 9.9 4.5- 19.8 [facility] HospitalLactic Acid Aztia7952-27-16 15:28:00* Test Item Value Reference Range Interpretation Comments Lactic Acid Level (test code = Lactic Acid Level) 9.9 4.5- 19.8 [facility] HospitalUrine HTX2010-86-44 15:14:00* Test Item Value Reference Range Interpretation Comments Urine WBC (test code = 5821-4) 0-5 0-5 [facility] HospitalU[facility] ZRJ0287-65-75 15:14:00* Test Item Value Reference Range Interpretation Comments Urine RBC (test code = 80552-8) 0-5 0-5 [facility] HospitalU[facility] Rtyuddrl0020-13-52 15:14:00* Test Item Value Reference Range Interpretation Comments Urine Bacteria (test code = 20527-5) FEW NONE [facility] HospitalU[facility] Epithelial Zqvph7754-71-15 15:14:00 * Test Item Value Reference Range Interpretation Comments Urine Epithelial Cells (test code = 07250-3) FEW NONE [facility] Amorphous Vstyxecg1548-95-25 15:14:00* Test Item Value Reference Range Interpretation Comments Urine Amorphous Sediment (test code = 8246-1) MODERATE FEW H [facility] Hyaline Wnrpc4005-22-68 15:14:00* Test Item Value Reference Range Interpretation Comments Urine Hyaline Casts (test code = 66713-6) 2-5 0-1 H [facility] DXC2513-44-26 15:14:00* Test Item Value Reference Range Interpretation Comments Urine WBC (test code = 5821-4) 0-5 0-5 [facility] CVW8358-69-55 15:14:00* Test Item Value Reference Range Interpretation Comments Urine RBC (test code = 24336-0) 0-5 0-5 [facility] Ecfoyqzo7485-11-41 15:14:00* Test Item Value Reference Range Interpretation Comments Urine Bacteria (test code = 04379-8) FEW NONE [facility] Epithelial Ubinu3590-56-72 15:14:00 * Test Item Value Reference Range Interpretation Comments Urine Epithelial Cells (test code = 64245-0) FEW NONE [facility] Amorphous Rkwegtah7111-81-13 15:14:00* Test Item Value Reference Range Interpretation Comments Urine Amorphous Sediment (test code = 8246-1) MODERATE FEW H [facility] Hyaline Devaz4576-72-56 15:14:00* Test Item Value Reference Range Interpretation Comments Urine Hyaline Casts (test code = 14708-3) 2-5 0-1 H [facility] HospitalProthrombin Nrqc0661-51-73 15:09:00* Test Item Value Reference Range Interpretation Comments Prothrombin Time (test code = 5902-2) 11.1 11.9-14.5 L [facility] HospitalProthromb Time International Ratio 2018-06-09 15:09:00* Test Item Value Reference Range Interpretation Comments Prothromb Time International Ratio (test code = 6301-6) 0.74 Oral Anticoagulant Therapy INR Values:1. Low Intensity Therapy 1.5 - 2.02 . Moderate Intensity Therapy 2.0 - 3.03. High Intensity Therapy(1) 2.5 - 3. 54. High Intensity Therapy(2) 3.0 - 4.05. Panic Value INR > 5.0 [facility] HospitalActivated Partial Thromboplast Time 2018-06-09 15:09:00* Test Item Value Reference Range Interpretation Comments Activated Partial Thromboplast Time (test code = 35118-7) 30.3 23.8-35.5 [facility] HospitalAmylase Cravc4636-13-16 15:09:00* Test Item Value Reference Range Interpretation Comments Amylase Level (test code = 1798-8) 45 25-125 [facility] HospitalLipase2018-11-28 15:09:00* Test Item Value Reference Range Interpretation Comments Lipase (test code = 3040-3) 8 8-78 [facility] HospitalProthrombin Xbjm7023-81-87 15:09:00* Test Item Value Reference Range Interpretation Comments Prothrombin Time (test code = 5902-2) 11.1 11.9-14.5 L [facility] HospitalProthromb Time International Ratio 2018-06-09 15:09:00* Test Item Value Reference Range Interpretation Comments Prothromb Time International Ratio (test code = 6301-6) 0.74 Oral Anticoagulant Therapy INR Values:1. Low Intensity Therapy 1.5 - 2.02 . Moderate Intensity Therapy 2.0 - 3.03. High Intensity Therapy(1) 2.5 - 3. 54. High Intensity Therapy(2) 3.0 - 4.05. Panic Value INR > 5.0 [facility] HospitalActivated Partial Thromboplast Time 2018-06-09 15:09:00* Test Item Value Reference Range Interpretation Comments Activated Partial Thromboplast Time (test code = 34334-5) 30.3 23.8-35.5 [facility] HospitalAmylase Zpsbj1689-12-07 15:09:00* Test Item Value Reference Range Interpretation Comments Amylase Level (test code = 1798-8) 45 25-125 [facility] HospitalLipase2018-11-28 15:09:00* Test Item Value Reference Range Interpretation Comments Lipase (test code = 3040-3) 8 8-78 [facility] HospitalUrine Xztdv9559-77-12 15:03:00* Test Item Value Reference Range Interpretation Comments Urine Color (test code = 5778-6) STRAW YELLOW [facility] HospitalUrine Lipuoyc8811-59-69 15:03:00* Test Item Value Reference Range Interpretation Comments Urine Clarity (test code = 30814-6) SL CLOUDY CLEAR [facility] HospitalUrine Specific Oeoiqso7043-66-70 15:03:00 * Test Item Value Reference Range Interpretation Comments Urine Specific [place] (test code = 5811-5) 1.025 1.010-1.02 5 [facility] HospitalU[facility] aJ1983-66-05 15:03:00* Test Item Value Reference Range Interpretation Comments Urine pH (test code = 70199-4) 5 5-7 [facility] HospitalU[facility] Leukocyte Kwriigpj7413-21-36 15:03:00* Test Item Value Reference Range Interpretation Comments Urine Leukocyte Esterase (test code = 5799-2) NEGATIVE NEGATIVE [facility] HospitalU[facility] Qczkerc1469-20-11 15:03:00* Test Item Value Reference Range Interpretation Comments Urine Nitrite (test code = 87622-9) NEGATIVE NEGATIVE [facility] HospitalU[facility] Ipkvntf0529-79-99 15:03:00* Test Item Value Reference Range Interpretation Comments Urine Protein (test code = 5804-0) NEGATIVE NEGATIVE [facility] HospitalU[facility] Glucose (UA)2018-06-09 15:03:00* Test Item Value Reference Range Interpretation Comments Urine Glucose (UA) (test code = 2349-9) NEGATIVE NEGATIVE [facility] HospitalU[facility] Vciobvb6976-94-70 15:03:00* Test Item Value Reference Range Interpretation Comments Urine Ketones (test code = 85039-0) NEGATIVE NEGATIVE [facility] Rnmkosdfztgz0838-45-94 15:03:00* Test Item Value Reference Range Interpretation Comments Urine Urobilinogen (test code = 93488-0) 0.2 0.2-1 [facility] HospitalU[facility] Vyortsdzf8148-63-25 15:03:00* Test Item Value Reference Range Interpretation Comments Urine Bilirubin (test code = 1978-6) NEGATIVE NEGATIVE [facility] HospitalU[facility] Cbmjt0736-63-10 15:03:00* Test Item Value Reference Range Interpretation Comments Urine Blood (test code = 73328-5) 1+ NEGATIVE H [facility] Dswc7667-53-06 15:03:00* Test Item Value Reference Range Interpretation Comments Urine Test (test code = 2106-3) NEGATIVE NEGATIVE [facility] Xbmhb2814-05-39 15:03:00* Test Item Value Reference Range Interpretation Comments Urine Color (test code = 5778-6) STRAW YELLOW [facility] HospitalU[facility] Wbkqepq2449-09-39 15:03:00* Test Item Value Reference Range Interpretation Comments Urine Clarity (test code = 39317-3) SL CLOUDY CLEAR [facility] HospitalU[facility] Specific Xgmdnyv2434-09-77 15:03:00 * Test Item Value Reference Range Interpretation Comments Urine Specific [place] (test code = 5811-5) 1.025 1.010-1.02 5 [facility] HospitalU[facility] hY7201-32-99 15:03:00* Test Item Value Reference Range Interpretation Comments Urine pH (test code = 94463-9) 5 5-7 [facility] Leukocyte Ayxbrcrg5986-97-89 15:03:00* Test Item Value Reference Range Interpretation Comments Urine Leukocyte Esterase (test code = 5799-2) NEGATIVE NEGATIVE [facility] HospitalU[facility] Itshjqt8108-33-42 15:03:00* Test Item Value Reference Range Interpretation Comments Urine Nitrite (test code = 65544-1) NEGATIVE NEGATIVE [facility] Vrihbnk8267-32-37 15:03:00* Test Item Value Reference Range Interpretation Comments Urine Protein (test code = 5804-0) NEGATIVE NEGATIVE [facility] Glucose (UA)2018-06-09 15:03:00* Test Item Value Reference Range Interpretation Comments Urine Glucose (UA) (test code = 2349-9) NEGATIVE NEGATIVE [facility] Abihiep0150-63-80 15:03:00* Test Item Value Reference Range Interpretation Comments Urine Ketones (test code = 72474-1) NEGATIVE NEGATIVE [facility] Myzjcwywlcuz7790-51-94 15:03:00* Test Item Value Reference Range Interpretation Comments Urine Urobilinogen (test code = 52761-3) 0.2 0.2-1 [facility] Dmbfacfip0028-83-08 15:03:00* Test Item Value Reference Range Interpretation Comments Urine Bilirubin (test code = 1978-6) NEGATIVE NEGATIVE [facility] Opjxr7241-07-27 15:03:00* Test Item Value Reference Range Interpretation Comments Urine Blood (test code = 25971-5) 1+ NEGATIVE H [facility] HospitalU[facility] Hoym7479-88-98 15:03:00* Test Item Value Reference Range Interpretation Comments Urine Test (test code = 2106-3) NEGATIVE NEGATIVE [facility] HospitalCHEST SINGLE (PORTABLE)2018-01-28 17:17:00 [facility] [address] [place] [address] Patient Name: VIRA MESSINA MR #: [id number] : 1955 Age/Sex: 62/F Req #: [id number] Adm Physician: Ordered by: FIORDALIZA NICHOLE MD Report #: [id number] Location: ER Room/Bed: Procedure: [id number] DX/CHEST SINGLE (PORTABLE) Exam Date: 01/28/18 Exam [...] NICHOLE MD SP LUMBAR AP LATERAL 2-3VWS [place] [address] Patient Name: VIRA MESSINA MR #: [id number] : 1955 Age/Sex: 62/F Req #: [id number] Adm Physician: Ordered by: NATTY TEE MD Report #: [id number] Location: ER Room/Bed: Procedure: [id number] DX/SP LUMBAR AP LATERAL 2-3VW S Exam [...]
[2020-03-19] MEDS: AZITHROMYCIN 500MG/SOD CHL 0.9% 250ML BAG IV SCH (01:21)
[2020-03-19] MEDS ORDERED: HYDROCODONE/APAP 5MG-325MG TAB PO ONE (01:30)
[2020-03-19] MEDS: ALBUTEROL SULF 0.083% NEB SOLN 3 ML NEB NEB SCH ×4 (01:30→21:00)
[2020-03-19] MEDS ORDERED: ALBUTEROL SULF 0.083% NEB SOLN 3 ML NEB NEB STA (03:00)
--- NOTE | 2020-03-19 03:02 | NUR ---
PT NOTED C INCREASED WHEEZING ON AUSCULTATION. DR DYER INFORMED. TO ROOM TO ASSESS. IVF DECREASED TO 75CC/HR PER MD ORDERS AT THIS TIME. EXTRA NEB TREAMENT ORDERED. RT CALLED OT INFORM. Addendum: 03/19/20 at 0303 by CFERNANDEZ PT NOTED C INCREASED WHEEZING ON AUSCULTATION. DR DYER INFORMED. TO ROOM TO ASSESS. IVF DECREASED TO 75CC/HR AT THIS TIME PER ORDERS. EXTRA NEB TREATMENT ORDERED. RT CALLED TO INFORM.
[2020-03-19] MEDS ORDERED: FUROSEMIDE INJ 10 MG/ML 2 ML VIAL IV ONE (03:45)
--- NOTE | 2020-03-19 03:58 | NUR ---
PATIENT IS A NEW ADMIT FROM THE ER. PATIENT HAS BEEN TRANSFERRED INTO THE BED. BED IS IN LOWEST POSITION AND CALL LIGHT IS WITHIN REACH. PATIENT HAS TELEMETRY AND OXYGEN ATTACHED. WILL CONTINUE TO MONITOR PATIENT.
--- NOTE | 2020-03-19 07:07 | NUR ---
REPORT GIVEN TO DAY NURSE. PATIENT IS RESTING IN BED. BED IS IN LOWEST POSITION AND CALL LIGHT IS WITHIN REACH
[2020-03-19] MEDS: IPRATROPIUM BROMIDE 0.02% 2.5 ML NEB NEB SCH ×3 (08:23→19:40)
[2020-03-19] MEDS: NICOTINE 21 MG/EA PATCH TOP SCH ×2 (09:02→09:21)
[2020-03-19 11:08] LABS: CREATINE KINASE MB 0.9 ng/mL (0-5.0)
[2020-03-19] MEDS ORDERED: NORCO 10-325 T1 EACH PO (14:12)
[2020-03-19] MEDS: HYDROCODONE/APAP 10MG-325MG TAB PO PRN ×2 (14:39→21:44)
[2020-03-19] MEDS ORDERED: METOPROLOL TARTRATE INJ 1 MG/ML VIAL IV PRN (15:45)
[2020-03-19] MEDS ORDERED: TEMAZEPAM 7.5 MG CAP PO PRN (15:45)
[2020-03-19] MEDS ORDERED: POLYETHYLENE GLYCOL 3350 17 GM PACK PO PRN (15:45)
[2020-03-19] MEDS ORDERED: ZOLPIDEM TARTRATE 10 MG TAB PO PRN (16:00)
[2020-03-19] MEDS ORDERED: TEMAZEPAM 15 MG CAP PO PRN (16:00)
[2020-03-19] MEDS: DOCUSATE SODIUM 100 MG CAP PO SCH (16:35)
[2020-03-19] MEDS: BUSPIRONE HCL 5 MG TAB PO SCH (16:35)
[2020-03-19] MEDS: FAMOTIDINE 20 MG/2 ML VIAL IV SCH (16:35)
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
[2020-03-19] MEDS ORDERED: NON-FORMULARY MEDICATION (Buspirone Hcl 7.5 MG) PO SCH (17:00)
[2020-03-19 17:17] LABS: CREATINE KINASE MB 0.7 ng/mL (0-5.0)
--- NOTE | 2020-03-19 17:53 | Diagnostic Imaging Report ---
EXAM: CT Chest WITHOUT contrast INDICATION: Pneumonia, +SOB x 1 week COMPARISON: Multiple prior chest radiographs including most recent on 03/18/2020. TECHNIQUE: Chest was scanned utilizing a multidetector helical scanner from the lung apex through the level of the adrenal glands without administration of IV contrast. Absence of intravenous contrast decreases sensitivity for detection of lymphadenopathy and vascular pathology. Coronal and sagittal reformations were obtained. Routine protocol was performed. IV CONTRAST: None COMPLICATIONS: None RADIATION DOSE: Total DLP: 476.24 mGy*cm Estimated effective dose: (DLP x 0.014 x size factor) mSv CTDIvol has been reviewed. It is below the limits set by the Radiation Protocol Committee (RPC). Dose modulation, iterative reconstruction, and/or weight based adjustment of the mA/kV was utilized to reduce the radiation dose to as low as reasonably achievable. FINDINGS: LINES/ TUBES: None. LUNGS AND AIRWAYS: There is background of mild centrilobular emphysema predominantly in the upper lobes. There is bibasilar atelectasis. No focal consolidation or suspicious pulmonary nodule/mass. There is area of subtle groundglass opacity in the right upper lobe (series 3 image 30) which is nonspecific. Airways are normal. PLEURA: The pleural spaces are clear. HEART AND MEDIASTINUM: The thyroid gland is normal. There are multiple prominent mediastinal lymph nodes, none of which meet criteria for pathologic enlargement and likely reactive. No mediastinal, hilar or axillary lymphadenopathy. The heart is normal in size with atherosclerotic calcification of the coronary vessels. There is no pericardial effusion. The thoracic aorta has normal caliber with atherosclerotic calcification of the arch. Main pulmonary trunk has normal caliber measuring 2.2 cm. UPPER ABDOMEN: Unremarkable. BONES: The bones are diffusely demineralized. There are multilevel degenerative changes in the thoracic spine. There are multiple consecutive compression fractures involving T5-L2 vertebral bodies. There is diastases of the L1 vertebral body with minimal retropulsion. SOFT TISSUES: Unremarkable. IMPRESSION: 1. Background of mild centrilobular emphysema with bibasilar atelectasis. No focal consolidation or suspicious pulmonary nodule/mass. Area of subtle groundglass opacity in the right upper lobe is nonspecific and likely represents atelectasis and/or aspiration. 2. Diffusely demineralized bones with consecutive compression fractures of indeterminate age involving T5-L2 vertebral bodies. Diastases of the L1 vertebral body with minimal retropulsion. Correlate with point tenderness and history of falls. Signed by: Olivia Sorensen MD on 03/19/2020 5:50 PM
[2020-03-19] MEDS: ALBUTEROL SULFATE HFA 8GM INHALATION AEROSOL INH SCH (19:00)
[2020-03-19] MEDS: GABAPENTIN 300 MG CAP PO SCH (20:27)
[2020-03-19] MEDS: TIZANIDINE HCL 4 MG TAB PO SCH (21:44)
[2020-03-19] MEDS: CEFTRIAXONE SOD 1 GRAM/0.9% SOD CHL 50ML BAG IV SCH (23:00)
[2020-03-19] MEDS ORDERED: SODIUM CHLORIDE 0.9% 250ML 250 ML ONE (23:19)
[2020-03-20] VITALS (9 sets, daily range): BP systolic 86–109; BP diastolic 55–69
[2020-03-20] MEDS: IPRATROPIUM BROMIDE 0.02% 2.5 ML NEB NEB SCH ×4 (00:02→19:35)
[2020-03-20] MEDS: ALBUTEROL SULF 0.083% NEB SOLN 3 ML NEB NEB SCH ×7 (00:02→23:15)
[2020-03-20] MEDS: AZITHROMYCIN 500MG/SOD CHL 0.9% 250ML BAG IV SCH (01:20)
[2020-03-20] MEDS: TIZANIDINE HCL 4 MG TAB PO SCH ×3 (06:00→22:25)
[2020-03-20 06:33] LABS: BASOPHILS % 0.2 % (0.0-1.0); EOSINOPHILS # (AUTO) 0.1 (0.0-0.4); EOSINOPHILS % 0.6 % (0.0-6.0); HEMATOCRIT 27.7 % (34.2-44.1); HEMOGLOBIN 8.7 g/dL (12.0-16.0); LYMPHOCYTES % 14.6 % (18.0-39.1); MEAN CORPUSCULAR HEMOGLOBIN 27.8 pg (28-32); MEAN CORPUSCULAR HGB CONC 31.4 g/dL (31-35); MEAN CORPUSCULAR VOLUME 88.5 fL (81-99); MONOCYTES # (AUTO) 1.4 (0.2-0.8); MONOCYTES % 10.3 % (4.4-11.3); NEUTROPHILS # (AUTO) 9.9 (2.1-6.9); NEUTROPHILS % 73.9 % (38.7-80.0); PLATELET COUNT 258 x10e3/uL (140-360); RED BLOOD COUNT 3.13 x10e6/uL (3.6-5.1); RED CELL DISTRIBUTION WIDTH 14.7 % (11.7-14.4)
[2020-03-20 06:56] LABS: ALBUMIN 3.5 g/dL (3.5-5.0); ALBUMIN/GLOBULIN RATIO 1.3 (0.8-2.0); ALKALINE PHOSPHATASE 67 IU/L (40-150); ANION GAP 16.4 mmol/L (8-16); BLOOD UREA NITROGEN 11 mg/dL (7-26); BUN/CREATININE RATIO 16 (6-25); CALCIUM 8.1 mg/dL (8.4-10.2); CARBON DIOXIDE 23 mmol/L (22-29); CHLORIDE 98 mmol/L (98-107); EST GLOMERULAR FILTRATION RATE > 60 ML/MIN (60-); GLUCOSE 88 mg/dL (74-118); MAGNESIUM 1.8 MG/DL (1.3-2.1); PHOSPHORUS 3.8 MG/DL (2.3-4.7); POTASSIUM 3.4 mmol/L (3.5-5.1); SODIUM 134 mmol/L (136-145)
[2020-03-20 06:57] LABS: ALANINE AMINOTRANSFERASE < 6 IU/L (0-55)
[2020-03-20] MEDS: ALBUTEROL SULFATE HFA 8GM INHALATION AEROSOL INH SCH ×4 (07:00→19:00)
[2020-03-20 07:17] LABS: THYROID STIMULATING HORMONE 0.395 uIU/mL (0.350-4.940)
[2020-03-20] MEDS: GABAPENTIN 300 MG CAP PO SCH ×3 (09:02→21:00)
[2020-03-20] MEDS: BUSPIRONE HCL 5 MG TAB PO SCH ×2 (09:02→16:14)
[2020-03-20] MEDS: CLOPIDOGREL BISULFATE 75 MG TAB PO SCH (09:02)
[2020-03-20] MEDS: DOCUSATE SODIUM 100 MG CAP PO SCH ×2 (09:02→16:14)
[2020-03-20] MEDS: FAMOTIDINE 20 MG/2 ML VIAL IV SCH ×2 (09:02→16:14)
[2020-03-20] MEDS: HYDROCODONE/APAP 10MG-325MG TAB PO PRN ×3 (09:02→22:25)
[2020-03-20] MEDS ORDERED: POTASSIUM CHLORIDE 20 MEQ TAB CR PO ONE (11:25)
[2020-03-20] MEDS: METHYLPREDNISOLONE SOD SUCC 40 MG/ML VIAL 1ML IV SCH ×2 (11:33→21:00)
--- NOTE | 2020-03-20 12:37 | NUR ---
Discontinuing PT services since patient is mod I in functional mobility.Thank you Addendum: 03/20/20 at 1238 by Vikram palma PT Amended: Links added.
--- NOTE | 2020-03-20 13:24 | Consultation ---
DATE OF CONSULTATION: Pulmonary Critical Care Consultation CHIEF COMPLAINT: Dyspnea and congestion. HISTORY OF PRESENT ILLNESS: The patient is a 64-year-old woman. She is a history of COPD. She also has some cardiac problems and . She was recently hospitalized at [facility] and she required some IV steroids and bronchodilators. She is discharged home, but now returns with worsening dyspnea and congestion. She notes cough. She received some Solu-Medrol and bronchodilators yesterday in the emergency department with some movement. PAST SURGICAL HISTORY: 1. Status post back surgery x4. 2. Status post left lower extremity surgery due to fracture. 3. Prior left hip surgery. 4. Hysterectomy. 5. Tonsillectomy. FAMILY HISTORY: History of prostate cancer as well as hepatitis. PAST MEDICAL HISTORY: 1. Prior cerebrovascular accident. 2. COPD. SOCIAL HISTORY: The patient was a former smoker. She smoked up to recently. She is not an active drinker. ALLERGIES: THE PATIENT IS ALLERGIC TO CONTRAST DYE. REVIEW OF SYSTEMS: The patient is afebrile. She does not complain of headache or neck pain. She did have some congestion and cough. She has no chest pain. She had no nausea or vomiting. There is no leg edema. PHYSICAL EXAMINATION: VITAL SIGNS: Blood pressure is 100/60, saturation is 95% on 1 L and the pulse is 84. HEENT: Shows no facial swelling or erythema. LYMPHATIC: Shows no submandibular, cervical, or supraclavicular adenopathy. CARDIAC: Reveals regular rate and rhythm with normal S1 and S2. LUNGS: Auscultation of lungs reveals rhonchorous breath sounds bilaterally. There is no wheezing. ABDOMEN: Soft and nontender. There is no rebound or guarding. EXTREMITIES: Show no leg edema or calf tenderness. There is no cyanosis or clubbing. SKIN: Shows no rashes. NEUROLOGICAL: Shows no focal abnormalities. LABORATORY DATA: White blood cell count is 13.4, hemoglobin is 8.7, and the platelet count is 258. The BUN to creatinine ratio is normal. The other electrolytes are within normal limits. Potassium is 3.4. RADIOGRAPHIC DATA: Chest x-ray shows no acute disease. There is some hyperinflation. CT scan of the chest shows centrilobular emphysema inflammation in the right upper lobe, possibly suggestive of aspiration. There is also some demineralization with compression fractures of indeterminate age in the thoracic and lumbar spine. IMPRESSION: 1. Chronic obstructive pulmonary disease with acute exacerbation. 2. Osteoporosis with compression fractures of indeterminate age. 3. Remote cerebrovascular accident. PLAN: 1. The patient will continue on Solu-Medrol. Taper as appropriate. 2. Continue current antibiotics. 3. Continue bronchodilators. 4. Speech therapy evaluation. 5. Physical therapy. Kayden Park MD [facility] /[id number]
[2020-03-20] MEDS: CEFTRIAXONE SOD 1 GRAM/0.9% SOD CHL 50ML BAG IV SCH (23:00)
[2020-03-21 00:50] VITALS: BP 113/68
[2020-03-21] MEDS: AZITHROMYCIN 500MG/SOD CHL 0.9% 250ML BAG IV SCH (01:00)
[2020-03-21] MEDS: IPRATROPIUM BROMIDE 0.02% 2.5 ML NEB NEB SCH ×2 (03:20→07:15)
[2020-03-21] MEDS: ALBUTEROL SULF 0.083% NEB SOLN 3 ML NEB NEB SCH ×2 (03:20→07:15)
[2020-03-21] MEDS: HYDROCODONE/APAP 10MG-325MG TAB PO PRN (04:45)
[2020-03-21 04:55] VITALS: BP 110/68
[2020-03-21] MEDS: TIZANIDINE HCL 4 MG TAB PO SCH (05:41)
--- NOTE | 2020-03-21 06:57 | NUR ---
Spoke with SHASHI Mead regarding Pt. refusing morning labs, no further orders.
[2020-03-21] MEDS: ALBUTEROL SULFATE HFA 8GM INHALATION AEROSOL INH SCH (07:00)
--- NOTE | 2020-03-21 07:00 | NUR ---
Left Voice message with Dr. Shay regarding Pt. refusing morning labs.
[2020-03-21 07:28] LABS: HEMATOCRIT 27.5 % (34.2-44.1); HEMOGLOBIN 8.6 g/dL (12.0-16.0); LYMPHOCYTES # (AUTO) 0.6 (1.0-3.2); LYMPHOCYTES % 5.3 % (18.0-39.1); MEAN CORPUSCULAR HEMOGLOBIN 27.7 pg (28-32); MEAN CORPUSCULAR HGB CONC 31.3 g/dL (31-35); MEAN CORPUSCULAR VOLUME 88.7 fL (81-99); MONOCYTES # (AUTO) 0.9 (0.2-0.8); MONOCYTES % 7.4 % (4.4-11.3); NEUTROPHILS % 86.5 % (38.7-80.0); PLATELET COUNT 281 x10e3/uL (140-360); RED CELL DISTRIBUTION WIDTH 14.8 % (11.7-14.4)
[2020-03-21 08:00] VITALS: BP 91/61
[2020-03-21 08:00] LABS: ALANINE AMINOTRANSFERASE < 6 IU/L (0-55); ALBUMIN 3.5 g/dL (3.5-5.0); ALBUMIN/GLOBULIN RATIO 1.3 (0.8-2.0); ALKALINE PHOSPHATASE 61 IU/L (40-150); BLOOD UREA NITROGEN 10 mg/dL (7-26); BUN/CREATININE RATIO 15 (6-25); CALCIUM 8.6 mg/dL (8.4-10.2); CARBON DIOXIDE 22 mmol/L (22-29); CHLORIDE 101 mmol/L (98-107); CREATININE, SERUM 0.65 mg/dL (0.57-1.11); EST GLOMERULAR FILTRATION RATE > 60 ML/MIN (60-); GLUCOSE 141 mg/dL (74-118); SODIUM 136 mmol/L (136-145)
[2020-03-21 08:41] VITALS: BP 91/61
[2020-03-21] MEDS: NICOTINE 21 MG/EA PATCH TOP SCH (09:00)
[2020-03-21] MEDS ORDERED: PREDNISONE10 MG PO (10:12)
[2020-03-21] MEDS ORDERED: ZITHROMAX500 MG PO (10:12)
[2020-03-21] MEDS ORDERED: TYLENOL # 31 EA PO (10:12)
[2020-03-21] MEDS ORDERED: CEFDINIR300 MG PO (10:12)
[2020-03-21] MEDS: FAMOTIDINE 20 MG/2 ML VIAL IV SCH (10:13)
[2020-03-21] MEDS: DOCUSATE SODIUM 100 MG CAP PO SCH (10:14)
[2020-03-21] MEDS: METHYLPREDNISOLONE SOD SUCC 40 MG/ML VIAL 1ML IV SCH (10:14)
[2020-03-21] MEDS: CLOPIDOGREL BISULFATE 75 MG TAB PO SCH (10:14)
[2020-03-21] MEDS: GABAPENTIN 300 MG CAP PO SCH (10:14)
[2020-03-21] MEDS: BUSPIRONE HCL 5 MG TAB PO SCH (10:14)
--- NOTE | 2020-03-21 11:10 | NUR ---
Spoke with Dr. Katya dumont to discharge from pulm standpoint if pass home oxygen eval
--- NOTE | 2020-03-21 11:20 | NUR ---
patient ambulating around room packing belongings on room air. o2 sat 98% on room air upon exertion. does not meet criteria for home o2. patient aware. attending notified.
--- NOTE | 2020-03-21 11:27 | NUR ---
patient discharged. IV access removed. telemetry removed. prescriptions given to patient. patient wheeled off unit to taxi in stable condition.
[2020-03-21] MEDS ORDERED: CITRATE OF MAGNESIA 300ML BOTTLE PO ONE (11:30)
--- NOTE | 2020-03-22 09:35 | Discharge Summary ---
ADMISSION DIAGNOSES: Acute exacerbation of COPD, possible community-acquired pneumonia present on admission, tobacco use, history of CVA with residual left-sided hemiparesis and ambulatory dysfunction. DISCHARGE DIAGNOSES: Acute exacerbation of COPD, possible community-acquired pneumonia present on admission, tobacco use, history of CVA with residual left-sided hemiparesis and ambulatory dysfunction, rule out aspiration pneumonia. HISTORY: COPD, CVA with left-sided deficit, back pain, and masters to hands and face. PAST SURGICAL HISTORY: Four back surgeries, left lower extremity surgery, and left hip surgery. FAMILY HISTORY: The patient's sister and father had cancer. SOCIAL HISTORY: The patient smokes about half a pack of cigarettes a day for 30 years. HOSPITAL COURSE: A 64-year-old female presents with complaints of shortness of breath and chest pain for one week. On admission chest x-ray showed mild central vascular congestion, minimal retrocardiac haziness. CT of the chest was ordered, which showed background of mild centrilobular emphysema,, subtle ground-glass opacity in the right upper lobe likely atelectasis versus aspiration. Speech therapy was then consulted, who ruled out aspiration. Blood cultures were negative. Coronavirus negative. TSH was within normal limits. Troponin was normal. After IV antibiotics and IV steroids the patient is feeling much better and ready to discharge home. She will follow up with primary care in 1 to 2 weeks and Pulmonology in 1 to 2 weeks. She does not qualify for home O2. She has necessary DME already at home. Dictated by Alyce Barker, SHASHI MD [facility] /[id number]
--- NOTE | 2020-03-23 10:19 | Diagnostic Imaging Report ---
PROCEDURE: X-RAY MODIFIED BARIUM SWALLOW COMPARISON: None. INDICATION: Aspiration Radiation Details: Fluoroscopy time: 1.1 minutes Cumulative dose: 5.1 mGy DISCUSSION: Fluoroscopic examination was performed in conjunction with speech pathology during swallowing a variety of thin and thick liquid consistencies. Provided images demonstrate trace laryngeal penetration and no aspiration. CONCLUSION: Modified barium swallow demonstrating trace laryngeal penetration and no aspiration. Please refer to the speech pathology report for further details. Signed by: Alessandra Fry MD on 03/23/2020 10:16 AM
[2020-03-26] MEDS ORDERED: ALENDRONATE SODIUM 70 MG TAB PO PRN (06:00)
== END 2020-03-21 11:27 | disposition home or self-care (01) | DRG 194 ==
LOC: ER 22:25 → ERHOLD 03-19 01:03 → MED/SURG3 03-19 03:20
PROVIDERS: ADMIT Internal Medicine; ATTEND Internal Medicine
DX: J18.9 Pneumonia, unspecified organism (principal); J44.0 Chronic obstructive pulmonary disease with (acute) lower respiratory infection; J44.1 Chronic obstructive pulmonary disease with (acute) exacerbation; I69.354 Hemiplegia and hemiparesis following cerebral infarction affecting left non-dominant side; M80.88XA Other osteoporosis with current pathological fracture, vertebra(e), initial encounter for fracture; F17.210 Nicotine dependence, cigarettes, uncomplicated; I69.391 Dysphagia following cerebral infarction; R13.10 Dysphagia, unspecified; Z80.42 Family history of malignant neoplasm of prostate; I25.10 Atherosclerotic heart disease of native coronary artery without angina pectoris; E87.6 Hypokalemia; Z88.5 Allergy status to narcotic agent; Z91.041 Radiographic dye allergy status; Z11.59 Encounter for screening for other viral diseases
CPT/HCPCS: 36415; 71045; 71250; 74230; 80053; 81001; 82550; 82553; 83605; 83735; 84100; 84443; 84484; 85025; 87040; 93005; 94640; 99285; J0456; J0696; J1940; J2920; J2930; J7030; J7050; U0002

== ENCOUNTER 2020-03-31 19:01 | Emergency (ER) | payer OTHER ==
[~2020-03-31] VITALS: Ht 172.7 cm; Wt 64.0 kg
[~2020-03-31 19:01] MED LIST changes: +CEFDINIR300 MG PO; +NORCO 10-325 T1 EACH PO; +PREDNISONE10 MG PO; +TYLENOL # 31 EA PO; +ZITHROMAX500 MG PO
[2020-03-31] MEDS ORDERED: AZITHROMYCIN 500MG/NS 250 ML 250 ML IV STA (19:08)
[2020-03-31] MEDS ORDERED: CEFTRIAXONE SOD 1 GM/NS 50 ML 50 ML IV ONE (19:15)
[2020-03-31] MEDS ORDERED: MAGNESIUM SULFATE 2GM/50ML 50 ML IV ONE (19:15)
[2020-03-31] MEDS ORDERED: ALBUTEROL/IPRATROPIUM 3 ML NEB NEB ONE (19:15)
[2020-03-31] MEDS ORDERED: METHYLPREDNISOLONE SOD SUCC 125 MG/2ML VIAL IV ONE (19:15)
--- NOTE | 2020-03-31 19:22 | Emergency Department Note ---
History of Present Illnes History of Present Illness Chief Complaint: Respiratory History of Present Illness This is a 64 year old female arrived to the ED with complaints of nelly rtness of breath and cough, pt is a ppd smoker- pt states symptoms started after getting a flu and pneumonia shot. Onset (how long ago): day(s) Radiation: Reports non-radiation Severity: mild Onset quality: sudden Duration (how long): day(s) Past Medical/Family History Physician Review I have reviewed the patient's past medical and family history. Any updates have been documented here. Past Medical History Past Medical History: COPD, CVA Other Medical History: "leaky heart valve" Christian to face & hands CVAx2 Back hardware LLE franck d/t fx Past Surgical History: Hysterectomy, T&A Other Surgery: left hip surgery Other Last Tetanus: UTD Review of Systems Review of Systems Constitutional: Reports no symptoms EENTM: Reports no symptoms Cardiovascular: Reports no symptoms Respiratory: Reports as per HPI, Reports cough, Reports dyspnea Gastrointestinal: Reports no symptoms Genitourinary: Reports no symptoms Musculoskeletal: Reports no symptoms Integumentary: Reports no symptoms Neurological: Reports no symptoms Psychological: Reports no symptoms Endocrine: Reports no symptoms Hematological/Lymphatic: Reports no symptoms Physical Exam Related Data Allergies: Coded Allergies: Iodinated Contrast Media (Verified Allergy, Severe, ANAPHYLAXIS, 11/10/18) morphine (Verified Allergy, Unknown, itch, 12/18/19) Vital signs reviewed: Yes Physical Exam CONSTITUTIONAL Constitutional: Present well-developed, Present well-nourished HENT HENT: Present normocephalic, Present atraumatic, Present oropharynx clear/moist, Present nose normal HENT L/R: Present left ext ear normal, Present right ext ear normal EYES Eyes: Reports PERRL, Reports conjunctivae normal NECK Neck: Present ROM normal PULMONARY Pulmonary: Present effort normal, Present breath sounds normal CARDIOVASCULAR Cardiovascular: Present regular rhythm, Present heart sounds normal, Present capillary refill normal, Present normal rate GASTROINTESTINAL Abdominal: Present soft, Present nontender, Present bowel sounds normal GENITOURINARY Genitourinary: Present exam deferred SKIN Skin: Present warm, Present dry MUSCULOSKELETAL Musculoskeletal: Present ROM normal NEUROLOGICAL Neurological: Present alert, Present oriented x 3, Present no gross motor or sensory deficits PSYCHOLOGICAL Psychological: Present mood/affect normal, Present judgement normal Results Laboratory Lab results reviewed: Yes Laboratory comments Laboratory Tests Test 03/31/20 19:45 03/31/20 19:29 White Blood Count 11.21 x10e3/uL (4.8-10.8) Red Blood Count 3.89 x10e6/uL (3.6-5.1) Hemoglobin 10.9 g/dL (12.0-16.0) Hematocrit 34.4 % (34.2-44.1) Mean Corpuscular Volume 88.4 fL (81-99) Mean Corpuscular Hemoglobin 28.0 pg (28-32) Mean Corpuscular Hemoglobin Concent 31.7 g/dL (31-35) Red Cell Distribution Width 14.7 % (11.7-14.4) Platelet Count 428 x10e3/uL (140-360) Neutrophils (%) (Auto) 68.4 % (38.7-80.0) Lymphocytes (%) (Auto) 19.1 % (18.0-39.1) Monocytes (%) (Auto) 9.5 % (4.4-11.3) Eosinophils (%) (Auto) 2.2 % (0.0-6.0) Basophils (%) (Auto) 0.3 % (0.0-1.0) Neutrophils # (Auto) 7.7 (2.1-6.9) Lymphocytes # (Auto) 2.1 (1.0-3.2) Monocytes # (Auto) 1.1 (0.2-0.8) Eosinophils # (Auto) 0.3 (0.0-0.4) Basophils # (Auto) 0.0 (0.0-0.1) Absolute Immature Granulocyte (auto 0.06 x10e3/uL (0-0.1) Sodium Level 135 mmol/L (136-145) Potassium Level 4.0 mmol/L (3.5-5.1) Chloride Level 100 mmol/L (98-107) Carbon Dioxide Level 24 mmol/L (22-29) Anion Gap 15.0 mmol/L (8-16) Blood Urea Nitrogen < 5 mg/dL (7-26) Creatinine 0.66 mg/dL (0.57-1.11) Estimat Glomerular Filtration Rate > 60 ML/MIN (60-) BUN/Creatinine Ratio 8 (6-25) Glucose Level 113 mg/dL (74-118) Lactic Acid Level 3.9 mmol/L (0.5-2.0) Calcium Level 9.0 mg/dL (8.4-10.2) Total Bilirubin 0.4 mg/dL (0.2-1.2) Aspartate Amino Transf (AST/SGOT) 13 IU/L (5-34) Alanine Aminotransferase (ALT/SGPT) < 6 IU/L (0-55) Alkaline Phosphatase 80 IU/L (40-150) Creatine Kinase 47 IU/L (29-168) Creatine Kinase MB 1.20 ng/mL (0-5.0) Troponin I < 0.001 ng/mL (0-0.300) B-Type Natriuretic Peptide 43.8 pg/mL (0-100) Total Protein 6.8 g/dL (6.5-8.1) Albumin 3.9 g/dL (3.5-5.0) Globulin 2.9 g/dL (2.3-3.5) Albumin/Globulin Ratio 1.3 (0.8-2.0) Imaging Imaging results reviewed: Yes Impressions Laboratory Tests Test 03/31/20 19:45 03/31/20 19:29 White Blood Count 11.21 x10e3/uL (4.8-10.8) Red Blood Count 3.89 x10e6/uL (3.6-5.1) Hemoglobin 10.9 g/dL (12.0-16.0) Hematocrit 34.4 % (34.2-44.1) Mean Corpuscular Volume 88.4 fL (81-99) Mean Corpuscular Hemoglobin 28.0 pg (28-32) Mean Corpuscular Hemoglobin Concent 31.7 g/dL (31-35) Red Cell Distribution Width 14.7 % (11.7-14.4) Platelet Count 428 x10e3/uL (140-360) Neutrophils (%) (Auto) 68.4 % (38.7-80.0) Lymphocytes (%) (Auto) 19.1 % (18.0-39.1) Monocytes (%) (Auto) 9.5 % (4.4-11.3) Eosinophils (%) (Auto) 2.2 % (0.0-6.0) Basophils (%) (Auto) 0.3 % (0.0-1.0) Neutrophils # (Auto) 7.7 (2.1-6.9) Lymphocytes # (Auto) 2.1 (1.0-3.2) Monocytes # (Auto) 1.1 (0.2-0.8) Eosinophils # (Auto) 0.3 (0.0-0.4) Basophils # (Auto) 0.0 (0.0-0.1) Absolute Immature Granulocyte (auto 0.06 x10e3/uL (0-0.1) Sodium Level 135 mmol/L (136-145) Potassium Level 4.0 mmol/L (3.5-5.1) Chloride Level 100 mmol/L (98-107) Carbon Dioxide Level 24 mmol/L (22-29) Anion Gap 15.0 mmol/L (8-16) Blood Urea Nitrogen < 5 mg/dL (7-26) Creatinine 0.66 mg/dL (0.57-1.11) Estimat Glomerular Filtration Rate > 60 ML/MIN (60-) BUN/Creatinine Ratio 8 (6-25) Glucose Level 113 mg/dL (74-118) Lactic Acid Level 3.9 mmol/L (0.5-2.0) Calcium Level 9.0 mg/dL (8.4-10.2) Total Bilirubin 0.4 mg/dL (0.2-1.2) Aspartate Amino Transf (AST/SGOT) 13 IU/L (5-34) Alanine Aminotransferase (ALT/SGPT) < 6 IU/L (0-55) Alkaline Phosphatase 80 IU/L (40-150) Creatine Kinase 47 IU/L (29-168) Creatine Kinase MB 1.20 ng/mL (0-5.0) Troponin I < 0.001 ng/mL (0-0.300) B-Type Natriuretic Peptide 43.8 pg/mL (0-100) Total Protein 6.8 g/dL (6.5-8.1) Albumin 3.9 g/dL (3.5-5.0) Globulin 2.9 g/dL (2.3-3.5) Albumin/Globulin Ratio 1.3 (0.8-2.0) Imaging Comments Heart is nonenlarged. Pulmonary vasculature is within normal limits. Unchanged prominent interstitial pulmonary markings, likely related to emphysema. No consolidation. No pleural effusion. No pneumothorax. IMPRESSION: No pneumonia or edema. Assessment & Plan Medical Decision Making MDM 64 F arrived to the ED with complaints of cough shortness of breath, pt 1 ppd smoker. Pt did not want to be admitted to the hospital, agreed to outpt Pulm f/u. Pt given solu-medrol and duo-nebs in house. Pt reports feeling better and wishes to be discharged home. All clinical impressions and diagnoses provided are preliminary ED determina tions subject to the inherent limitations of an emergent non-scheduled evaluation and possible lack of comprehensive previous records. All patient care including history taking, review of systems, physical exam, nursing notes review, medical decision making, clinical course management in the emergency department, clinical impression, disposition and plan formulation was performed on the date of service. This note was created using a voice-recognition transcribing system. Incorrect words or phrases may have been missed during proofreading. Please interpret accordingly. Assessment & Plan Final Impression: (1) COPD exacerbation Depart Disposition: HOME, SELF-group home Meds Active Scripts Prednisone (PREDNISONE) 10 Mg Tab, 10 MG PO UD for 9 Days, TAB TAKE 20MG PO BID X3 DAYS THEN TAKE 20MG PO DAILY X3 DAYS THEN TAKE 10MG PO DAILY X3 DAYS THEN STOP Prov:VICTORIANO HICKS [employer] BU[employer]ER 03/21/20 Acetaminophen/Codeine* (TYLENOL # 3*) 1 Ea Tab, 1 TAB PO Q8H PRN for PAIN, #20 Prov:VICTORIANO HICKS [employer] BU[employer]ER 03/21/20 Cefdinir (OMNICEF) 300 Mg Capsule, 300 MG PO BID for 4 Days, CAP Prov:VICTORIANO HICKS NP 03/21/20 Azithromycin (ZITHROMAX) 500 Mg Tablet, 500 MG PO DAILY for 2 Days Prov:VICTORIANO HICKS [employer] BU[employer]ER 03/21/20 Reported Medications Buspirone Hcl (BUSPIRONE HCL) 7.5 Mg Tablet, 7.5 MG PO BID 06/09/18 Zolpidem Tartrate (ZOLPIDEM TARTRATE) 10 Mg Tablet, 10 MG PO HS PRN for INSOMNIA 06/09/18 Albuterol Sulf* (PROAIR HFA INHALER*) 8.5 Gm Inh, 2 INH INH QID 06/09/18 Alendronate Sodium (ALENDRONATE SODIUM) 70 Mg Tablet, 70 MG PO PRN EVERY WEEK 06/09/18 Tizanidine Hcl (TIZANIDINE HCL) 4 Mg Tablet, 4 MG PO Q8HR 06/09/18 Gabapentin (GABAPENTIN) 300 Mg Capsule, 600 MG PO TID, #60 CAP 07/02/17 Clopidogrel Bisulfate* (PLAVIX) 75 Mg Tablet, 75 MG PO DAILY, #30 TAB 07/02/17 Medications in the ED Albuterol/ Ipratropium 9 ml ONCE ONCE NEB ; Start 03/31/20 at 19:15; Stop 03/31/20 at 19:16; Status DC Methylprednisolone Sodium Succinate 125 mg ONCE ONCE IV ; Start 03/31/20 at 19:15; Stop 03/31/20 at 19:16; Status DC Magnesium Sulfate 50 ml @ 25 mls/hr ONCE ONCE IV ; Start 03/31/20 at 19:15; Stop 03/31/20 at 21:14 Azithromycin 250 ml @ 200 mls/hr NOW STAT IV ; Start 03/31/20 at 19:08; Stop 03/31/20 at 20:22 Ceftriaxone Sodium 50 ml @ 100 mls/hr ONCE ONCE IV ; Start 03/31/20 at 19:15; Stop 03/31/20 at 19:44 EMILIA ALANIS, Mar 31, 2020 19:22
[2020-03-31 19:50] LABS: BASOPHILS % 0.3 % (0.0-1.0); EOSINOPHILS # (AUTO) 0.3 (0.0-0.4); EOSINOPHILS % 2.2 % (0.0-6.0); HEMATOCRIT 34.4 % (34.2-44.1); HEMOGLOBIN 10.9 g/dL (12.0-16.0); LYMPHOCYTES # (AUTO) 2.1 (1.0-3.2); LYMPHOCYTES % 19.1 % (18.0-39.1); MEAN CORPUSCULAR HGB CONC 31.7 g/dL (31-35); MEAN CORPUSCULAR VOLUME 88.4 fL (81-99); MONOCYTES # (AUTO) 1.1 (0.2-0.8); MONOCYTES % 9.5 % (4.4-11.3); NEUTROPHILS # (AUTO) 7.7 (2.1-6.9); NEUTROPHILS % 68.4 % (38.7-80.0); PLATELET COUNT 428 x10e3/uL (140-360); RED BLOOD COUNT 3.89 x10e6/uL (3.6-5.1); RED CELL DISTRIBUTION WIDTH 14.7 % (11.7-14.4)
[2020-03-31 20:05] LABS: ALBUMIN 3.9 g/dL (3.5-5.0); ALBUMIN/GLOBULIN RATIO 1.3 (0.8-2.0); ALKALINE PHOSPHATASE 80 IU/L (40-150); BLOOD UREA NITROGEN < 5 mg/dL (7-26); CARBON DIOXIDE 24 mmol/L (22-29); CHLORIDE 100 mmol/L (98-107); CREATINE KINASE 47 IU/L (29-168); CREATININE, SERUM 0.66 mg/dL (0.57-1.11); EST GLOMERULAR FILTRATION RATE > 60 ML/MIN (60-); GLUCOSE 113 mg/dL (74-118); SODIUM 135 mmol/L (136-145)
[2020-03-31 20:10] LABS: BUN/CREATININE RATIO 8 (6-25)
[2020-03-31 20:11] LABS: ALANINE AMINOTRANSFERASE < 6 IU/L (0-55)
--- NOTE | 2020-03-31 20:30 | NUR ---
PT STATES THAT DOES NOT WANT TO BE ADMITTED. PT STATES THAT WANTED "BE CHECKED TO MAKE SURE I DIDNT HAVE PNEUMONIA AGAIN." PT ASKED TO SPEAK TO ER MD. DR ALANIS INFORMED. MD TO ROOM AND SPOKE TO PT. MD STATES THAT WILL DC P ABX AND IVF. PT ENCOURAGED TO RETURN TO ER IF CONDITION WORSENS OR CONDITION PERSISTS.
--- NOTE | 2020-03-31 20:34 | Diagnostic Imaging Report ---
EXAMINATION: CHEST SINGLE (PORTABLE) INDICATION: SOB COMPARISON: Radiograph dated 03/18/2020. FINDINGS: Heart is nonenlarged. Pulmonary vasculature is within normal limits. Unchanged prominent interstitial pulmonary markings, likely related to emphysema. No consolidation. No pleural effusion. No pneumothorax. IMPRESSION: No pneumonia or edema. Signed by: Hi Nelson MD on 03/31/2020 8:31 PM
[2020-03-31 20:36] LABS: B-TYPE NATRIURETIC PEPTIDE2 43.8 pg/mL (0-100)
[2020-03-31] MEDS ORDERED: SODIUM CHLORIDE 0.9% 1000ML 1,000 ML IV STA (20:45)
[2020-03-31] MEDS ORDERED: SODIUM CHLORIDE 0.9% 1000ML 1,000 ML ONE (20:53)
[2020-03-31] MEDS ORDERED: ALBUTEROL SULFATE HFA 8GM INHALATION AEROSOL INH PRN (21:00)
[2020-03-31] MEDS ORDERED: METHYLPREDNISOLONE SOD SUCC 125 MG/2ML VIAL IV SCH (21:00)
[2020-03-31] MEDS ORDERED: GABAPENTIN 300 MG CAP PO SCH (21:00)
[2020-03-31] MEDS ORDERED: CEFTRIAXONE SOD 1 GM/NS 50 ML 50 ML IV SCH (21:00)
[2020-03-31] MEDS ORDERED: ZOLPIDEM TARTRATE 10 MG TAB PO PRN (21:00)
--- NOTE | 2020-03-31 21:05 | NUR ---
PT C/O PAIN TO R FA IV. IV NOTED INTACT, NO REDNESS OR SWELLING. IV DC'D C C GAUZE DRESSING APPLIED. RESTARTED 20GA IV TO R HAND C 20 GA X 2 ATTEMPTS.
[2020-03-31 22:50] VITALS: BP 109/74
[2020-04-01] MEDS ORDERED: ALBUTEROL/IPRATROPIUM 3 ML NEB NEB SCH (01:00)
[2020-04-01] MEDS ORDERED: METHYLPREDNISOLONE SOD SUCC 125 MG/2ML VIAL IV SCH (09:00)
[2020-04-01] MEDS ORDERED: CLOPIDOGREL BISULFATE 75 MG TAB PO SCH (09:00)
[2020-04-01] MEDS ORDERED: ACETAMINOPHEN/CODEINE 300MG - 30MG TAB PO PRN (17:15)
[2020-04-01] MEDS ORDERED: BUSPIRONE HCL 5 MG TAB PO SCH (17:30)
[2020-04-01] MEDS ORDERED: CEFTRIAXONE SOD 1 GM/NS 50 ML 50 ML IV SCH (18:00)
[2020-04-01] MEDS ORDERED: AZITHROMYCIN 500MG/NS 250 ML 250 ML IV SCH (19:00)
== END 2020-03-31 23:16 | disposition home or self-care (01) ==
LOC: ER 19:13 → UNDOADMOB 20:44 → ERHOLD 20:44 → UNDODISOB 04-02 06:54
DX: J44.1 Chronic obstructive pulmonary disease with (acute) exacerbation (principal); R06.02 Shortness of breath; R05 Cough; F17.210 Nicotine dependence, cigarettes, uncomplicated; Z86.73 Personal history of transient ischemic attack (TIA), and cerebral infarction without residual deficits; Z11.59 Encounter for screening for other viral diseases
CPT/HCPCS: 36415; 71045; 80053; 82550; 82553; 83605; 83880; 84484; 85025; 87040; 94640; 99284; J0456; J0696; J3475; J7030; U0002

== ENCOUNTER 2020-04-17 17:46 | Observation (INO) | payer MEDICARE, OTHER ==
[~2020-04-17] VITALS: Ht 172.7 cm; Wt 62.0 kg
--- NOTE | 2020-04-17 18:01 | Emergency Department Note ---
History of Present Illnes History of Present Illness Chief Complaint: Respiratory History of Present Illness This is a 64 year old female acute on chronic dyspnea. Seen at [facility] in mild distress. 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, Yarn Skeins Examiner/EMS Arrival Mode: [facility] EMS Treatment GLEASON GEAR GENERATOR: O2, See EMS Report Past Medical/Family History Physician Review I have reviewed the patient's past medical and family history. Any updates have been documented here. Past Medical History Recent Fever: No Clinical Suspicion of Infectio: No New/Unexplained Change in Ment: No Past Medical History: COPD, CVA, Anxiety Other Medical History: "leaky heart valve" Christian to face & hands CVAx2 Back hardware LLE franck d/t fx Past Surgical History: Hysterectomy, T&A Other Surgery: left hip surgery Social History Smoking Cessation: Current every day smoker Counseling Performed: No Alcohol Use: Occasional Any Illegal Drug Use: No Other Last Tetanus: UTD Any Pre-Existing Lines (PICC,: No Review of Systems Review of Systems Constitutional: Reports no symptoms EENTM: Reports no symptoms Cardiovascular: Reports no symptoms Respiratory: Reports wheezing Gastrointestinal: Reports no symptoms Genitourinary: Reports no symptoms Musculoskeletal: Reports no symptoms Integumentary: Reports no symptoms Neurological: Reports no symptoms Psychological: Reports no symptoms Endocrine: Reports no symptoms Hematological/Lymphatic: Reports no symptoms Physical Exam Related Data Allergies: Coded Allergies: Iodinated Contrast Media (Verified Allergy, Severe, ANAPHYLAXIS, 11/10/18) morphine (Verified Allergy, Unknown, itch, 12/18/19) Triage Vital Signs Vital Signs Date Time Temp Pulse Resp B/P (MAP) Pulse Ox O2 Delivery O2 Flow Rate FiO2 04/17/20 17:49 97.2 92 16 114/69 92 Room Air 04/17/20 17:53 8.0 Vital signs reviewed: Yes Physical Exam CONSTITUTIONAL Constitutional: Present ill appearing HENT HENT: Present normocephalic, Present atraumatic, Present oropharynx clear/moist, Present nose normal HENT L/R: Present left ext ear normal, Present right ext ear normal EYES Eyes: Reports PERRL, Reports conjunctivae normal NECK Neck: Present ROM normal PULMONARY Pulmonary: Present effort normal, Present other (b/l wheezing) CARDIOVASCULAR Cardiovascular: Present regular rhythm, Present heart sounds normal, Present capillary refill normal, Present normal rate GASTROINTESTINAL Abdominal: Present soft, Present nontender, Present bowel sounds normal GENITOURINARY Genitourinary: Present exam deferred SKIN Skin: Present warm, Present dry MUSCULOSKELETAL Musculoskeletal: Present ROM normal NEUROLOGICAL Neurological: Present alert, Present oriented x 3, Present no gross motor or sensory deficits PSYCHOLOGICAL Psychological: Present mood/affect normal, Present judgement normal Results Laboratory Lab results reviewed: Yes Laboratory comments Laboratory Tests Test 04/17/20 20:30 04/17/20 18:09 White Blood Count 7.12 x10e3/uL (4.8-10.8) Red Blood Count 3.85 x10e6/uL (3.6-5.1) Hemoglobin 11.2 g/dL (12.0-16.0) Hematocrit 34.9 % (34.2-44.1) Mean Corpuscular Volume 90.6 fL (81-99) Mean Corpuscular Hemoglobin 29.1 pg (28-32) Mean Corpuscular Hemoglobin Concent 32.1 g/dL (31-35) Red Cell Distribution Width 15.3 % (11.7-14.4) Platelet Count 291 x10e3/uL (140-360) Neutrophils (%) (Auto) 45.2 % (38.7-80.0) Lymphocytes (%) (Auto) 38.9 % (18.0-39.1) Monocytes (%) (Auto) 11.4 % (4.4-11.3) Eosinophils (%) (Auto) 3.7 % (0.0-6.0) Basophils (%) (Auto) 0.7 % (0.0-1.0) Neutrophils # (Auto) 3.2 (2.1-6.9) Lymphocytes # (Auto) 2.8 (1.0-3.2) Monocytes # (Auto) 0.8 (0.2-0.8) Eosinophils # (Auto) 0.3 (0.0-0.4) Basophils # (Auto) 0.1 (0.0-0.1) Absolute Immature Granulocyte (auto 0.01 x10e3/uL (0-0.1) Sodium Level 135 mmol/L (136-145) Potassium Level 3.6 mmol/L (3.5-5.1) Chloride Level 98 mmol/L (98-107) Carbon Dioxide Level 27 mmol/L (22-29) Anion Gap 13.6 mmol/L (8-16) Blood Urea Nitrogen < 5 mg/dL (7-26) Creatinine 0.79 mg/dL (0.57-1.11) Estimat Glomerular Filtration Rate > 60 ML/MIN (60-) BUN/Creatinine Ratio 6 (6-25) Glucose Level 93 mg/dL (74-118) Calcium Level 9.5 mg/dL (8.4-10.2) Total Bilirubin 0.3 mg/dL (0.2-1.2) Aspartate Amino Transf (AST/SGOT) 16 IU/L (5-34) Alanine Aminotransferase (ALT/SGPT) < 6 IU/L (0-55) Alkaline Phosphatase 99 IU/L (40-150) Creatine Kinase 94 IU/L (29-168) Creatine Kinase MB 1.90 ng/mL (0-5.0) Troponin I 0.014 ng/mL (0-0.300) B-Type Natriuretic Peptide 12.6 pg/mL (0-100) Total Protein 7.7 g/dL (6.5-8.1) Albumin 3.7 g/dL (3.5-5.0) Globulin 4.0 g/dL (2.3-3.5) Albumin/Globulin Ratio 0.9 (0.8-2.0) Imaging Imaging results reviewed: Yes Impressions [place] [id number] Patient Name: VIRA MESSINA MR #: [id number] : 1955 Age/Sex: 64/F Req #: [id number] Adm Physician: Ordered by: Jie Bonilla MD Report #: [id number] Location: ER Room/Bed: Procedure: [id number] DX/CHEST SINGLE (PORTABLE) Exam Date: 04/17/20 Exam Time: 1755 REPORT STATUS: Signed EXAMINATION: CHEST SINGLE (PORTABLE) INDICATION: History of COPD. COMPARISON: Multiple prior chest x-rays including most recent on 03/18/2020. Chest CT on 03/19/2020 FINDINGS: TUBES and LINES: None. LUNGS: The lungs are hyperinflated with flattening of the diaphragms. There are prominent interstitial lung markings. No focal consolidations. Bibasilar atelectasis. PLEURA: No pleural effusion or pneumothorax. HEART AND MEDIASTINUM: The cardiomediastinal silhouette is unremarkable. BONES AND SOFT TISSUES: No acute osseous lesion. Soft tissues are unremarkable. UPPER ABDOMEN: No free air under the diaphragm. IMPRESSION: Radiographic changes compatible with COPD. No focal consolidation, pleural effusion or pneumothorax. Signed by: Sravanthi Portillo MD on 04/17/2020 6:21 PM Dictated By: SRAVANTHI PORTILLO MD 20 Transcribed By: SONAM on 04/17/201820 COPY TO: JIE BONILLA MD~ Assessment & Plan Medical Decision Making MDM Diff Dx : COVID-19 URI, ACS, PNA, PTX, PE Assessment & Plan Final Impression: (1) COPD (chronic obstructive pulmonary disease) Depart Disposition: ADMITTED Last Vital Signs Date Time Temp Pulse Resp B/P (MAP) Pulse Ox O2 Delivery O2 Flow Rate FiO2 04/17/20 17:53 8.0 04/17/20 17:49 97.2 92 16 114/69 92 Room Air Home Meds Reported Medications Gabapentin (GABAPENTIN) 400 Mg Capsule, 400 MG PO TID 04/17/20 Hydrocodone Bit/Acetaminophen (HYDROCODON-ACETAMINOPHN 10-325) 1 Each Tablet, 1 TAB PO Q12H PRN for MODERATE PAIN (4-6) 04/17/20 Zolpidem Tartrate (ZOLPIDEM TARTRATE) 10 Mg Tablet, 10 MG PO HS PRN for INSOMNIA 06/09/18 Clopidogrel Bisulfate* (PLAVIX) 75 Mg Tablet, 75 MG PO DAILY, #30 TAB 07/02/17 Discontinued Reported Medications Clopidogrel Bisulfate (CLOPIDOGREL) 75 Mg Tablet 04/17/20 Flu Vac Qs 20-21(4Yr Up)Desirae/Pf (Flucelvax Quad Syr) 60 Mcg/0.5 Ml Syringe 04/17/20 [Zolpidem] No Conflict Check 04/17/20 [Albuterol] No Conflict Check 04/17/20 Prednisone (PREDNISONE) 20 Mg Tab 04/17/20 Buspirone Hcl (BUSPIRONE HCL) 7.5 Mg Tablet, 7.5 MG PO BID 06/09/18 Albuterol Sulf* (PROAIR HFA INHALER*) 8.5 Gm Inh, 2 INH INH Q6H PRN for SHORTNESS OF BREATH 06/09/18 Alendronate Sodium (ALENDRONATE SODIUM) 70 Mg Tablet, 70 MG PO PRN EVERY WEEK 06/09/18 Tizanidine Hcl (TIZANIDINE HCL) 4 Mg Tablet, 4 MG PO Q8HR 06/09/18 Gabapentin (GABAPENTIN) 300 Mg Capsule, 600 MG PO TID, #60 CAP 07/02/17 Discontinued Scripts Prednisone (PREDNISONE) 10 Mg Tab, 10 MG PO UD for 9 Days, TAB TAKE 20MG PO BID X3 DAYS THEN TAKE 20MG PO DAILY X3 DAYS THEN TAKE 10MG PO DAILY X3 DAYS THEN STOP Prov:VICTORIANO HICKS NP 03/21/20 Acetaminophen/Codeine* (TYLENOL # 3*) 1 Ea Tab, 1 TAB PO Q8H PRN for PAIN, #20 Prov:VICTORIANO HICKS NP 03/21/20 Cefdinir (OMNICEF) 300 Mg Capsule, 300 MG PO BID for 4 Days, CAP Prov:VICTORIANO HICKS LEATHER PARTS MATCHER 03/21/20 Azithromycin (ZITHROMAX) 500 Mg Tablet, 500 MG PO DAILY for 2 Days Prov:VICTORIANO HICKS NP 03/21/20 MALGORZATA CERVANTES DO Apr 17, 2020 18:00
--- NOTE | 2020-04-17 18:25 | Diagnostic Imaging Report ---
EXAMINATION: CHEST SINGLE (PORTABLE) INDICATION: History of COPD. COMPARISON: Multiple prior chest x-rays including most recent on 03/18/2020. Chest CT on 03/19/2020 FINDINGS: TUBES and LINES: None. LUNGS: The lungs are hyperinflated with flattening of the diaphragms. There are prominent interstitial lung markings. No focal consolidations. Bibasilar atelectasis. PLEURA: No pleural effusion or pneumothorax. HEART AND MEDIASTINUM: The cardiomediastinal silhouette is unremarkable. BONES AND SOFT TISSUES: No acute osseous lesion. Soft tissues are unremarkable. UPPER ABDOMEN: No free air under the diaphragm. IMPRESSION: Radiographic changes compatible with COPD. No focal consolidation, pleural effusion or pneumothorax. Signed by: Olivia Sorensen MD on 04/17/2020 6:21 PM
[2020-04-17] MEDS ORDERED: PREDNISONE20 MG (18:30)
[2020-04-17] MEDS ORDERED: ZOLPIDEM (18:30)
[2020-04-17] MEDS ORDERED: GABAPENTIN400 MG PO (18:30)
[2020-04-17] MEDS ORDERED: CLOPIDOGREL75 MG (18:30)
[2020-04-17] MEDS ORDERED: ALBUTEROL (18:30)
[2020-04-17] MEDS ORDERED: FLUCELVAX (18:30)
[2020-04-17] MEDS ORDERED: HYDROCODON-ACE1 EAC9 PO (18:30)
--- OUTSIDE RECORDS SUMMARY | 2020-04-17 18:32 | XMS REPORT | Continuity of Care Document ---
Author Author [employer] Address Unknown Phone Unavailable Care Team Providers Care Concrete Paving Machine Operator Name Role Phone [employer] Unavailable Un available Problems Problem [...] Active 75 mg orally once a day [facility] Ambien 1 [...]
[2020-04-17 18:34] LABS: BASOPHILS # (AUTO) 0.1 (0.0-0.1); BASOPHILS % 0.7 % (0.0-1.0); EOSINOPHILS # (AUTO) 0.3 (0.0-0.4); EOSINOPHILS % 3.7 % (0.0-6.0); HEMATOCRIT 34.9 % (34.2-44.1); HEMOGLOBIN 11.2 g/dL (12.0-16.0); LYMPHOCYTES # (AUTO) 2.8 (1.0-3.2); LYMPHOCYTES % 38.9 % (18.0-39.1); MEAN CORPUSCULAR HEMOGLOBIN 29.1 pg (28-32); MEAN CORPUSCULAR HGB CONC 32.1 g/dL (31-35); MEAN CORPUSCULAR VOLUME 90.6 fL (81-99); MONOCYTES # (AUTO) 0.8 (0.2-0.8); MONOCYTES % 11.4 % (4.4-11.3); NEUTROPHILS # (AUTO) 3.2 (2.1-6.9); NEUTROPHILS % 45.2 % (38.7-80.0); PLATELET COUNT 291 x10e3/uL (140-360); RED BLOOD COUNT 3.85 x10e6/uL (3.6-5.1); RED CELL DISTRIBUTION WIDTH 15.3 % (11.7-14.4)
[2020-04-17 18:57] LABS: ALBUMIN 3.7 g/dL (3.5-5.0); ALBUMIN/GLOBULIN RATIO 0.9 (0.8-2.0); ALKALINE PHOSPHATASE 99 IU/L (40-150); ANION GAP 13.6 mmol/L (8-16); BLOOD UREA NITROGEN < 5 mg/dL (7-26); CALCIUM 9.5 mg/dL (8.4-10.2); CARBON DIOXIDE 27 mmol/L (22-29); CHLORIDE 98 mmol/L (98-107); CREATINE KINASE 94 IU/L (29-168); CREATININE, SERUM 0.79 mg/dL (0.57-1.11); EST GLOMERULAR FILTRATION RATE > 60 ML/MIN (60-); GLUCOSE 93 mg/dL (74-118); POTASSIUM 3.6 mmol/L (3.5-5.1); SODIUM 135 mmol/L (136-145)
[2020-04-17] MEDS ORDERED: ALBUTEROL/IPRATROPIUM 3 ML NEB NEB STA ×2 (19:00→19:53)
[2020-04-17 19:02] LABS: ALANINE AMINOTRANSFERASE < 6 IU/L (0-55); BUN/CREATININE RATIO 6 (6-25)
--- NOTE | 2020-04-17 19:02 | NUR ---
NOTIFIED RESP OF NEB ORDER.
[2020-04-17] MEDS ORDERED: SODIUM CHLORIDE 0.9% 1000ML 1,000 ML IV SCH (20:15)
[2020-04-17 20:48] VITALS: BP 98/62
--- OUTSIDE RECORDS SUMMARY | 2020-04-17 20:56 | XMS REPORT | Continuity of Care Document ---
Author Author [employer] Address Unknown Phone Unavailable Care Team Providers Care Dog Walker Name Role Phone [employer] Unavailable Un available Problems Problem [...] Active 75 mg orally once a day [facility] Ambien 1 [...]
--- NOTE | 2020-04-17 22:07 | NUR ---
Patient arrived to unit from ER via stretcher in stable condition, respirations even and unlabored on 2L NC, no s/s of distress at this time. Patient oriented to room and hospital policies. Bed locked and in lowest position, side rails upx2, alarm on, call light placed within reach. Patient instructed to call for assistance if needed, verbalized understanding. All safety measures in place.
[2020-04-17 22:37] VITALS: BP 98/62
[2020-04-17 22:41] VITALS: BP 98/62
[2020-04-18] MEDS ORDERED: PROAIR HFA INH8.5 GM INH ×2 (00:35→12:42)
[2020-04-18 04:00] VITALS: BP 99/64
[2020-04-18 06:24] LABS: BASOPHILS # (AUTO) 0.1 (0.0-0.1); BASOPHILS % 0.9 % (0.0-1.0); EOSINOPHILS # (AUTO) 0.4 (0.0-0.4); EOSINOPHILS % 6.5 % (0.0-6.0); HEMATOCRIT 27.9 % (34.2-44.1); LYMPHOCYTES # (AUTO) 2.1 (1.0-3.2); LYMPHOCYTES % 38.5 % (18.0-39.1); MEAN CORPUSCULAR HEMOGLOBIN 29.9 pg (28-32); MEAN CORPUSCULAR HGB CONC 32.3 g/dL (31-35); MEAN CORPUSCULAR VOLUME 92.7 fL (81-99); MONOCYTES # (AUTO) 0.8 (0.2-0.8); MONOCYTES % 13.6 % (4.4-11.3); NEUTROPHILS # (AUTO) 2.2 (2.1-6.9); NEUTROPHILS % 40.3 % (38.7-80.0); PLATELET COUNT 217 x10e3/uL (140-360); RED BLOOD COUNT 3.01 x10e6/uL (3.6-5.1); RED CELL DISTRIBUTION WIDTH 15.7 % (11.7-14.4)
[2020-04-18 06:49] LABS: ALBUMIN 2.8 g/dL (3.5-5.0); ALKALINE PHOSPHATASE 79 IU/L (40-150); ANION GAP 11.8 mmol/L (8-16); BLOOD UREA NITROGEN < 5 mg/dL (7-26); CALCIUM 8.1 mg/dL (8.4-10.2); CARBON DIOXIDE 27 mmol/L (22-29); CHLORIDE 105 mmol/L (98-107); CREATININE, SERUM 0.65 mg/dL (0.57-1.11); EST GLOMERULAR FILTRATION RATE > 60 ML/MIN (60-); GLUCOSE 74 mg/dL (74-118); POTASSIUM 3.8 mmol/L (3.5-5.1); SODIUM 140 mmol/L (136-145)
[2020-04-18 06:55] LABS: ALANINE AMINOTRANSFERASE < 6 IU/L (0-55); BUN/CREATININE RATIO 8 (6-25)
--- NOTE | 2020-04-18 07:00 | NUR ---
Bedside report given to oncoming nurse. Patient in stable condition, no s/s of distress at this time. All safety measures in place.
[2020-04-18 07:09] LABS: CREATINE KINASE 53 IU/L (29-168)
--- NOTE | 2020-04-18 07:10 | NUR ---
RCD PT AT BED PT IS ALERT AND ORIENTED RESTING ON BED IV PATENT BY SALINE FLUSH BED LOW AND LOCKED CALL LIGHT IN REACH
[2020-04-18 07:34] VITALS: BP 102/61
[2020-04-18 07:38] LABS: EOSINOPHILS % (MANUAL) 4 % (0-7); LYMPHOCYTES % (MANUAL) 31 % (19-48); MONOCYTES % (MANUAL) 15 % (3.4-9.0); NEUTROPHILS % (MANUAL) 50 % (40-74); RBC MORPHOLOGY COMMENT NORMAL
[2020-04-18 07:39] LABS: ANISOCYTOSIS SLIGHT; PLATELET ESTIMATE ADEQUATE; PLATELET MORPHOLOGY COMMENT NORMAL
[2020-04-18] MEDS: ALBUTEROL/IPRATROPIUM 3 ML NEB NEB SCH ×2 (08:01→11:10)
[2020-04-18] MEDS ORDERED: HYDROCODONE/APAP 10MG-325MG TAB PO PRN (08:45)
[2020-04-18] MEDS ORDERED: ZOLPIDEM TARTRATE 10 MG TAB PO PRN (08:45)
[2020-04-18 08:56] VITALS: BP 102/61
[2020-04-18] MEDS ORDERED: CLOPIDOGREL BISULFATE 75 MG TAB PO SCH (09:30)
[2020-04-18] MEDS ORDERED: GABAPENTIN 400 MG CAP PO SCH (09:30)
[2020-04-18 11:18] VITALS: BP 82/57
--- NOTE | 2020-04-18 12:00 | NUR ---
PT IN ROOM AIR
[2020-04-18] MEDS ORDERED: TYLENOL # 31 EA PO (12:42)
[2020-04-18] MEDS ORDERED: PREDNISONE20 MG PO (12:42)
[2020-04-18] MEDS ORDERED: METHYLPREDNISOLONE SOD SUCC 40 MG/ML VIAL 1ML IV ONE (12:45)
--- NOTE | 2020-04-18 13:42 | NUR ---
PT WENT HOME IN SAFE CONDITION WITH HER CAREGIVER
[2020-04-18] MEDS ORDERED: FAMOTIDINE 20 MG TAB PO SCH (16:30)
--- NOTE | 2020-04-19 13:01 | Discharge Summary ---
ADMISSION DIAGNOSES: Acute exacerbation of chronic obstructive pulmonary disease, history of cerebrovascular accident, chronic back pain, tobacco use. DISCHARGE DIAGNOSES: Acute exacerbation of chronic obstructive pulmonary disease, history of cerebrovascular accident, chronic back pain, tobacco use. HISTORY: COPD, CVA with left hemiparesis, chronic back pain, masters to her hands and face. SURGICAL HISTORY: Back surgery x4, left leg surgery, and left hip surgery. FAMILY HISTORY: The patient's dad and sister had cancer. SOCIAL HISTORY: The patient admits to smoking half-a-pack of cigarettes a day. HOSPITAL COURSE: A 64-year-old female admits with complaints of shortness of breath and dry cough x2 weeks. She says she ran out of her medicines, so she came to the ER. She did not qualify for home oxygen even on the day of admission and is requesting to discharge home today. On admission, the patient was given Solu-Medrol IV. Her oxygen did not drop even off oxygen. Home O2 eval was completed and the patient's SpO2 only dropped to 99% with ambulation. The patient said she is very out of breath, but even with the nasal cannula on and the oxygen at 0 L/minutes, she is not hypoxic. The patient appears very anxious and is adamant about discharging today. She was given a new prescription for albuterol and tapering dose of prednisone p.o. The patient has all necessary DME at home and lives with family. She will follow up with primary care in 1 to 2 weeks. The patient understands discharge instructions and agrees to plan. Dictated by Alyce Barker NP MD THOMAS Hummel/MODL /[id number]
== END 2020-04-18 13:46 | disposition home or self-care (01) ==
LOC: ER 18:30 → ERHOLD 20:53 → MED/SURG2 21:21
PROVIDERS: ADMIT Internal Medicine; ATTEND Internal Medicine
DX: J44.1 Chronic obstructive pulmonary disease with (acute) exacerbation (principal); F41.9 Anxiety disorder, unspecified; Z88.5 Allergy status to narcotic agent; Z91.041 Radiographic dye allergy status; I69.354 Hemiplegia and hemiparesis following cerebral infarction affecting left non-dominant side; Z80.9 Family history of malignant neoplasm, unspecified; Z72.0 Tobacco use; M54.9 Dorsalgia, unspecified; Z11.59 Encounter for screening for other viral diseases
CPT/HCPCS: 36415 ×2; 71045; 80053 ×2; 82550 ×2; 82553 ×2; 83880; 84484 ×2; 85025 ×2; 93005; 94640 ×3; 94760; 99284; G0378 ×2; J2920; J7030 ×2; U0002

== ENCOUNTER 2020-05-02 17:32 | Emergency (ER) | payer MEDICARE ==
[~2020-05-02] VITALS: Ht 170.2 cm; Wt 65.8 kg
[~2020-05-02 17:32] MED LIST changes: +ALBUTEROL; +CLOPIDOGREL75 MG; +FLUCELVAX; +GABAPENTIN400 MG PO; +HYDROCODON-ACE1 EAC9 PO; +PREDNISONE20 MG; +PREDNISONE20 MG PO; +ZOLPIDEM
--- NOTE | 2020-05-02 18:29 | NUR ---
warehouse helper called to notify electromechanical assembly technician that patient needs a venous doppler to rule out DVT
[2020-05-02] MEDS ORDERED: ASPIRIN 81 MG CHEW TAB PO ONE (18:30)
--- OUTSIDE RECORDS SUMMARY | 2020-05-02 18:35 | XMS REPORT | Continuity of Care Document ---
Author Author [employer] Address Unknown Phone Unavailable Care Team Providers Care Steel Wool Machine Operator Name Role Phone [employer] Unavailable Un available Problems Problem [...] Active 75 mg orally once a day [facility] Ambien 1 tab(s) [...]
--- OUTSIDE RECORDS SUMMARY | 2020-05-02 18:36 | XMS REPORT | Continuity of Care Document ---
Author Author [facility] t Organization [facility] Address [address] [place] [id number] Phone Unavailable Care Team Providers Care Can Worker Name Role Phone RAO DO Shama KHOURY PCP MALGORZATA CERVANTES Attphys Unavailable SANDHIR, Nan NIETO Attphys Unavailable ALIE DUARTE Attphys Unavailable NAY, Linda LUZ Attphys Unavailable HUSBY, T CAMMIE Attphys Unavailable MANEEVESE, V FIORDALIZA Attphys Unavailable ALIE DUARTE Admphys Unavailable Payers Payer Name Policy Type Policy Number Effective Date Expiration Date Nan olmedo [facility] [id number] 2019 00:00:00 [facility] [id number] 2019 00:00 :00 [facility] Problems Condition Name Condition Details Condition Category Status Onset Date Resolution Date Last Treatment Date Treating Clinician Comments Source Small bowel obstruction SBO (small bowel obstruction) Problem Active [facility] Acute exacerbation of chronic obstructive pulmonary disease Problem Active [facility] Bronchitis Problem Active [facility] Chronic obstructive pulmonary disease Problem Active 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 Active Problem 12/26/2016 [facility] Problem Active 2016-12-26 02:46:31 Marj Valdivia Laceration of elbow, left, initial encounter Laceration of elbow, left, initial encounter Active Diagnosis 12/25/2016 [facility] Diagnosis Active 2016-12-25 02:46:10 Marj Valdivia Elbow laceration, right, initial encounter Elbow laceration, right, initial encounter Active Diagnosis 12/25/2016 [facility] Diagnosis Active 2016-12-25 02:46:10 Me collin Valdivia History of stroke Hist ory of stroke Active Diagnosis 12/25/2016 [facility] Diagnosis Active 2016-12-25 02:46:10 Marj Valdivia Allergies, Adverse Reactions, Alerts Allergy Name Allergy Type Status Severity Reaction(s) Onset Date Inacti ve Date Treating Clinician Comments Source Iodine and Iodide Containing Produc FA Active SV 4 00:00:00 [facility] morphine DA Active MA 2020-03-16 00:00:00 [facility] Iodine and Iodide Containing Produc FA Active SV 2020-01-11 7 00:00:00 [facility] morphine DA Active MA 2020-01-27 00:00:00 [facility] Iodine and Iodide Containing Produc FA Active SV 3 00:00:00 [facility] morphine DA Active MA 2020-01-13 00:00:00 [facility] Morphine Allergy to substance Active itch 2019-12-18 00:00:00 [facility] Iodine and Iodide Containing Produc FA Active SV 2019-11-11 6 00:00:00 [facility] morphine DA Active MA 2019-11-26 00:00:00 [facility] Iodine and Iodide Containing Produc FA Active SV 2019-04-14 1 00:00:00 [facility] morphine DA Active MA 2019-05-12 00:00:00 [facility] Iodinated Contrast Media Allergy to substance Active Severe A NAPHYLAXIS 2018-11-10 00:00:00 [facility] Iodine and Iodide Containing Produc FA Active SV 2017-11-10 5 00:00:00 [facility] morphine DA Active MA 2017-11-24 00:00:00 [facility] morphine morphine Active anaphylaxis 2016-12-11 00:00:00 [facility] Social History Social Habit Start Date Stop Date Quantity Comments Source Sex Assigned At 1955 00:00:00 1955 00:00:[address] [facility] Medications Ordered Medication Name Filled Medication Name Start Date Stop Da te Current Medication? Ordering Clinician Indication Dosage Frequency Signature (SIG) Comments Components Source Acetaminophen/Codeine Phosphate (Tylenol # 3*) 1 Ea TA B Acetaminophen/Codeine Phosphate (Tylenol # 3*) 1 Ea TAB 2020-04-18 12:42:00 Yes 1 Every 8 Hours as needed for Pain [facility] Albuterol Sulfate (Proair Hfa Inhaler*) 8.5 Gm INH Alb uterol Sulfate (Proair Hfa Inhaler*) 8.5 Gm INH 2020-04-18 12:42:00 Yes 2 Every 6 Hours as needed for Shortness Of Breath [facility] Prednisone Prednisone 2020-04-18 12:42:00 Yes [address] [facility] Acetaminophen/Codeine Phosphate (Tylenol # 3*) 1 Ea TA B Acetaminophen/Codeine Phosphate (Tylenol # 3*) 1 Ea TAB 2020-03-21 10:12:00 2020-04-17 00:00:00 No 1 Every 8 Hours as needed for Pain [facility] Azithromycin (Zithromax) 500 Mg TABLET Azithromycin (Zithrom ax) 500 Mg TABLET 2020-03-21 10:12:00 2020-04-17 00:00:[address] [facility] Cefdinir (Omnicef) 300 Mg CAPSULE Cefdinir (Omnicef) 300 Mg CAPSULE 2020-03-21 10:12:00 2020-04-17 00:00:00 No [address] [facility] Prednisone Prednisone 2020-03-21 10:12:2020-04-17 00:00:00 No 10 Use As Directed [facility] Azithromycin (Z-Ethan) 250 Mg TABLET Azithromycin (Z-Ethan) 250 Mg TABLET 2020-01-12 12:34:2020-03-21 00:00:[address] [facility] Suboxone 2016-12-25 02:50:31 Yes RODOLFO ROSA ELENA 2 ea [facility] Plavix 2016-12-25 02:46:10 Yes RODOLFO ROSA ELENA 1 ta b(s) [facility] Ambien 2016-12-25 02:46:10 Yes RODOLFO ROSA ELENA 1 ta b(s) [facility] Clopidogrel Bisulfate (Plavix) 75 Mg TABLET Clopidogre l Bisulfate (Plavix) 75 Mg TABLET Yes [address] [facility] Gabapentin Gabapentin Yes [address] [facility] Zolpidem Tartrate Zolpidem Tartrate Yes 10 Bedtime as needed for Insomnia [facility] Albuterol Sulfate (Proair Hfa Inhaler*) 8.5 Gm INH Alb uterol Sulfate (Proair Hfa Inhaler*) 8.5 Gm INH 2020-04-18 00:00:00 No 2 Every 6 Hours as needed for Shortness Of Breath [facility] Hydrocodone Bit/Acetaminophen (Hydrocodon-Acetaminophn 10-325) 1 Each TABLET Hydrocodone Bit/Acetaminophen (Hydrocodon-Acetaminophn 10-325) 1 Each TABLET 2020-04-18 00:00:00 No 1 Every 12 H ours as needed for Moderate Pain (4-6) [facility] Albuterol Albuterol 2020-04-17 00:00:00 No [facility] Albuterol Sulfate (Proair Hfa Inhaler*) 8.5 Gm INH Alb uterol Sulfate (Proair Hfa Inhaler*) 8.5 Gm INH 2020-04-17 00:00:00 No 2 Every 6 Hours as needed for Shortness Of Breath [facility] Alendronate Sodium Alendronate Sodium 2020-04-17 00:00:00 No 70 As Needed [facility] Buspirone Hcl Buspirone Hcl 2020-04-17 00:00:[address] [facility] Clopidogrel Bisulfate (Clopidogrel) 75 Mg TABLET Clopi dogrel Bisulfate (Clopidogrel) 75 Mg TABLET 2020-04-17 00:00:00 No [facility] Flu Vac Qs 20-21(4YR Up)Desirae/Pf (Flucelva x Quad Syr) 60 Mcg/0.5 Ml SYRINGE Flu Vac Qs 20-21(4YR Up)Desirae/Pf (Flucelva x Quad Syr) 60 Mcg/0.5 Ml SYRINGE 2020-04-17 00:00:00 No [facility] Gabapentin Gabapentin 2020-04-17 00:00:00 No 600 [address] ee Times A Day [facility] Prednisone Prednisone 2020-04-17 00:00:[address] [facility] Tizanidine Hcl Tizanidine Hcl 2020-04-17 00:00:00 No [address] [facility] Zolpidem Zolpidem 2020-04-17 00:00:[address] [facility] Hydrocodone Bit/Acetaminophen ([place] 10-325 Tablet) 1 Each TABLET Hydrocodone Bit/Acetaminophen ([place] 10-325 Tablet) 1 Each TABLET 2020-03-21 00:00:00 No 1 Three Times A Day for Pain [facility] Meloxicam Meloxicam 2020-03-19 00:00:[address] [facility] Oxcarbazepine Oxcarbazepine 2020-03-19 00:00:00 No [address] [facility] Vital Signs Vital Name Observation Time Observation Value Comments Source Body Temperature 2020-04-18 11:18:00 98.5 [degF] [facility] Weight 2020-04-17 22:39:00 136.70 [lb_av] [facility] BMI (Body Mass Index) 2020-04-17 22:39:00 20.8 kg/m2 [facility] Body Temperature 2020-03-31 22:50:00 98.9 [degF] [facility] Weight 2020-03-31 19:21:00 141 [lb_av] [facility] BMI (Body Mass Index) 2020-03-31 19:21:00 21.4 kg/m2 [facility] Body Temperature 2020-03-21 08:41:00 97.8 [degF] [facility] Weight 2020-03-19 05:29:00 141.56 [lb_av] [facility] BMI (Body Mass Index) 2020-03-19 05:29:00 21.5 kg/m2 [facility] Weight 2020-01-26 22:36:00 125 [lb_av] [facility] BMI (Body Mass Index) 2020-01-26 22:36:00 19.0 kg/m2 [facility] Weight 2019-12-18 15:45:00 125 [lb_av] [facility] BMI (Body Mass Index) 2019-12-18 15:45:00 19.0 kg/m2 [facility] Temperature Oral (F) 2016-12-11 20:30:00 98.0 F [facility] Weight 2016-12-11 20:30:00 [facility] Height 2016-12-11 20:30:00 [facility] Respitory Rate 2016-12-11 20:30:00 Memori al Skip Diastolic (mm Hg) 2016-12-11 20:30:00 Mem orial Skip Systolic (mm Hg) 2016-12-11 20:30:00 Mp [facility] [place] Procedures Procedure Date / Time Performed Performing Clinician [facility] e Computed tomography of chest without contrast 2020-03-19 00:00:[address] [facility] Plan of Care Planned Activity Planned Date Details Comments Source Instructions COPD [facility] Instructions Quitting Smoking [facility] Encounters Start Date/Time End Date/Time Encounter Type Admission Type Attendi [facility] Facility Care Department Encounter ID Source 2020-04-17 20:53:00 2020-04-18 13:46:00 Discharged Inpatient (obs) MALGORZATA CERVANTES [facility] [id number] [facility] 2020-03-31 19:13:00 2020-03-31 23:16:00 Departed Emergency Room 1 EMILIA ALANIS [facility] [id number] [facility] 2020-03-19 01:03:00 2020-03-21 11:27:00 Discharged Inpatient 1 ALIE DUARTE [facility] [id number] [facility] 2020-01-27 20:26:00 2020-01-27 15:56:00 Inpatient E [id number] 2020-01-26 22:40:00 2020-01-27 00:10:00 Departed Emergency Room MALGORZATA CERVANTES [facility] [id number] [facility] 2020-01-12 15:39:00 2020-01-12 15:39:00 Registered Emergency Room [facility] [id number] [facility] 2019-12-18 15:42:00 2019-12-18 19:00:00 Departed Emergency Room 1 NATTY TEE [facility] [id number] [facility] 2019-09-16 18:27:00 2019-09-16 18:27:00 Emergency E [id number] 2018-11-10 18:35:00 2018-11-10 21:35:00 Departed Emergency Room 1 CAMMIE MEJIA [facility] [id number] [facility] 2018-06-09 19:46:00 2018-06-11 07:41:00 Discharged Inpatient 1 ALIE DUARTE [facility] [id number] [facility] 2018-01-28 14:24:00 2018-01-28 17:50:00 Departed Emergency Room 1 FIORDALIZA NICHOLE [facility] [id number] [facility] 2017-07-02 22:33:00 2017-07-03 02:45:00 Departed Emergency Room ER NATTY TEE [facility] [id number] [facility] 2016-12-24 15:40:00 2016-12-24 15:40:00 Outpatient [facility] [id number] [facility] 2016-12-24 10:20:00 2016-12-24 10:20:00 Outpatient [facility] [id number] [facility] 2016-12-11 15:30:00 2016-12-11 15:30:00 Outpatient [facility] [id number] [facility] Results Test Description Test Time Test Comments Results Result Comments Source Blood leukocytes automated count (number/volume) 2020-04-18 05:40:00 Test Item White Blood Count (test code = 6690-2) 5.51 4.8-10.8 [facility] count (number/volume)2020-04-18 05:40:00* Test Item Value Reference Range Interpretation Comments Red Blood Count (test code = 789-8) 3.01 3.6-5.1 [facility] measurement (moles/volume)2020-04-18 05:40:00* Test Item Value Reference Range Interpretation Comments Hemoglobin (test code = 44044-7) 9.0 12.0-16.0 [facility] hematocrit (volume fraction)2020-04-18 05:40:00* Test Item Value Reference Range Interpretation Comments Hematocrit (test code = 4544-3) 27.9 34.2-44.1 [facility] erythrocyte mean corpuscular nncjpt3736-24-08 05:40:00* Test Item Value Reference Range Interpretation Comments Mean Corpuscular Volume (test code = 787-2) 92.7 81-99 [facility] eryth[facility] mean corpuscular hemoglobin (mass per erythrocyte)2020-04-18 05:40:00* Test Item Value Reference Range Interpretation Comments Mean Corpuscular Hemoglobin (test code = 785-6) 29.9 28-32 [facility] erythrocyte mean corpuscular hemoglobin concentration measurement (mass/volume)2020-04-18 05:40:00* Test Item Value Reference Range Interpretation Comments Mean Corpuscular Hemoglobin Concent (test code = 786-4) 32.3 31-35 [facility] CenterRDW TtsVt-[id number] 05:40:00* Test Item Value Reference Range Interpretation Comments Red Cell Distribution Width (test code = 77885-1) 15.7 11.7 -14.4 [facility] blood platelet count (count/volume)2020-04-18 05:40:00* Test Item Value Reference Range Interpretation Comments Platelet Count (test code = 777-3) 217 140-360 [facility] Center[facility] blood segmented neutrophil count as percentage of total eyebtjmwdy2824-63-63 05:40:00* Test Item Value Reference Range Interpretation Comments Neutrophils (%) (Auto) (test code = 40942-0) 40.3 38.7-80.0 [facility] Center[facility] blood lymphocyte count as percentage ot total ewtbnhlzmx0915-05-05 05:40:00* Test Item Value Reference Range Interpretation Comments Lymphocytes (%) (Auto) (test code = 736-9) 38.5 18.0-39.1 [facility] Center[facility] blood monocyte count as percentage of total xrsmzphvjy8664-98-51 05:40:00* Test Item Value Reference Range Interpretation Comments Monocytes (%) (Auto) (test code = 5905-5) 13.6 4.4-11.3 [facility] blood eosinophil count as percentage of total xirpwdcnka3171-62-44 05:40:00* Test Item Value Reference Range Interpretation Comments Eosinophils (%) (Auto) (test code = 713-8) 6.5 0.0-6.0 [facility] Center[facility] blood basophil count as percentage of total qcipawoowc7315-79-14 05:40:00* Test Item Value Reference Range Interpretation Comments Basophils (%) (Auto) (test code = 706-2) 0.9 0.0-1.0 [facility] CenterFluoroscopic procedure less than one hour [id number] 05:40:00* Test Item Value Reference Range Interpretation Comments IM GRANULOCYTES % (test code = IM GRANULOCYTES %) 0.2 0.0- 1.0 [facility] Center[facility] blood neutrophil count 2020-04-18 05:40:00* Test Item Value Reference Range Interpretation Comments Neutrophils # (Auto) (test code = 751-8) 2.2 2.1-6.9 [facility] Center[facility] lymphocytes count (number/volume) 2020-04-18 05:40:00* Test Item Value Reference Range Interpretation Comments Lymphocytes # (Auto) (test code = 90085-8) 2.1 1.0-3.2 [facility] monocytes automated count (number/volume)2020-04-18 05:40:00* Test Item Value Reference Range Interpretation Comments Monocytes # (Auto) (test code = 742-7) 0.8 0.2-0.8 [facility] CenterAutom[facility] blood eosinophil count 2020-04-18 05:40:00* Test Item Value Reference Range Interpretation Comments Eosinophils # (Auto) (test code = 711-2) 0.4 0.0-0.4 [facility] CenterAutcommunity healthed blood basophil count (count/volume)2020-04-18 05:40:00* Test Item Value Reference Range Interpretation Comments Basophils # (Auto) (test code = 704-7) 0.1 0.0-0.1 [facility] CenterFluoroscopic procedure less than one hour wwsmqulz6084-49-08 05:40:00* Test Item Value Reference Range Interpretation Comments Absolute Immature Granulocyte (auto (jasvir t code = Absolute Immature Granulocyte (auto) 0.01 0-0.1 [facility] CenterFluoroscopic procedure less than one hour zriskgpf5398-51-06 05:40:00* Test Item Value Reference Range Interpretation Comments Differential Total Cells Counted (test code = Differen tial Total Cells Counted) 100 [facility] CenterManual blood neutrophils/100 leukocytes 2020-04-18 05:40:00* Test Item Value Reference Range Interpretation Comments Neutrophils % (Manual) (test code = 40674-4) 50 40-74 [facility] CenterManual blood lymphocytes/100 leukocytes 2020-04-18 05:40:00* Test Item Value Reference Range Interpretation Comments Lymphocytes % (Manual) (test code = 737-7) 31 19-48 [facility] blood monocytes/100 leukocytes 2020-04-18 05:40:00* Test Item Value Reference Range Interpretation Comments Monocytes % (Manual) (test code = 744-3) 15 3.4-9.0 [facility] blood eosinophil count as percentage of total dwfmhhczgm2483-24-90 05:40:00* Test Item Value Reference Range Interpretation Comments Eosinophils % (Manual) (test code = 714-6) 4 0-7 [facility] CenterBlood platelets count by estimate (number/volume)2020-04-18 05:40:00* Test Item Value Reference Range Interpretation Comments Platelet Estimate (test code = 24625-0) ADEQUATE [facility] CenterPlatelet jdvwaqwjux2067-85-72 05:40:00* Test Item Value Reference Range Interpretation Comments Platelet Morphology Comment (test code = 07681-7) NORMAL [facility] CenterBlood anisocytosis detection by light cxpmqfloso1494-87-85 05:40:00* Test Item Value Reference Range Interpretation Comments Anisocytosis (test code = 702-1) SLIGHT [facility] CenterRBC cetkljkfio6811-65-48 05:40:00* Test Item Value Reference Range Interpretation Comments Red Cell Morphology Comment (test code = 6742-1) NORMAL [facility] plasma sodium measurement (moles/volume)2020-04-18 05:40:00* Test Item Value Reference Range Interpretation Comments Sodium Level (test code = 2951-2) 140 136-145 [facility] or plasma potassium measurement (moles/volume)2020-04-18 05:40:00* Test Item Value Reference Range Interpretation Comments Potassium Level (test code = 2823-3) 3.8 3.5-5.1 [facility] or plasma chloride measurement (moles/volume)2020-04-18 05:40:00* Test Item Value Reference Range Interpretation Comments Chloride Level (test code = 2075-0) 105 98-107 [facility] or plasma carbon dioxide, total measurement (moles/volume)2020-04-18 05:40:00* Test Item Value Reference Range Interpretation Comments Carbon Dioxide Level (test code = 2028-9) 27 22-29 [facility] or plasma anion [id number] 05:40:00* Test Item Value Reference Range Interpretation Comments Anion Gap (test code = 64625-0) 11.8 8-16 [facility] or plasma urea nitrogen measurement (mass/volume)2020-04-18 05:40:00* Test Item Value Reference Range Interpretation Comments Blood Urea Nitrogen (test code = 3094-0) < 5 7-26 [facility] or plasma creatinine measurement (mass/volume)2020-04-18 05:40:00* Test Item Value Reference Range Interpretation Comments Creatinine (test code = 2160-0) 0.65 0.57-1.11 [facility] or plasma urea nitrogen/creatinine mass ojruu2526-02-08 05:40:00* Test Item Value Reference Range Interpretation Comments BUN/Creatinine Ratio (test code = 3097-3) 8 6-25 [facility] CenterEstimated glomerular filtration rate (GFR) gfqtlfuxbfrhw4363-44-16 05:40:00* Test Item Value Reference Range Interpretation Comments Estimat Glomerular Filtration Rate (test code = 691422579) > 60 >60 Ranges were taken from the National Kidney Disease Education Program and the [facility] literature.Reference ranges:60 or greater: Nlsxoa46-58 ( for 3 consecutive months): Chronic kidney disease 15 or less: Kidney failureSt. [facility] CenterGlucose dkxobfgjtei7170-65-13 05:40:00* Test Item Value Reference Range Interpretation Comments Glucose Level (test code = IZH7707) 74 74-118 [facility] or plasma calcium measurement (mass/volume)2020-04-18 05:40:00* Test Item Value Reference Range Interpretation Comments Calcium Level (test code = 29620-4) 8.1 8.4-10.2 [facility] or plasma total bilirubin measurement (mass/volume)2020-04-18 05:40:00* Test Item Value Reference Range Interpretation Comments Total Bilirubin (test code = 1975-2) 0.3 0.2-1.2 [facility] CenterFluoroscopic procedure less than one hour fcdufdik8902-00-99 05:40:00* Test Item Value Reference Range Interpretation Comments Aspartate Amino Transf (AST/SGOT) (test code = Aspartate Amino Transf (AST/SGOT)) 12 5-34 [facility] or plasma alanine aminotransferase measurement (enzymatic activity/volume)2020-04-18 05:40:00* Test Item Value Reference Range Interpretation Comments Alanine Aminotransferase (ALT/SGPT) (test code = 1742-6) < 6 0-55 [facility] or plasma protein measurement (mass/volume)2020-04-18 05:40:00* Test Item Value Reference Range Interpretation Comments Total Protein (test code = 2885-2) 5.7 6.5-8.1 [facility] or plasma albumin measurement (mass/volume)2020-04-18 05:40:00* Test Item Value Reference Range Interpretation Comments Albumin (test code = 1751-7) 2.8 3.5-5.0 [facility] CenterPlasma globulin measurement (mass/volume) 2020-04-18 05:40:00* Test Item Value Reference Range Interpretation Comments Globulin (test code = 21627-1) 2.9 2.3-3.5 [facility] or plasma albumin/globulin mass [id number] 05:40:00* Test Item Value Reference Range Interpretation Comments Albumin/Globulin Ratio (test code = 1759-0) 1.0 0.8-2.0 [facility] [facility] or plasma alkaline phosphatase measurement (enzymatic activity/volume)2020-04-18 05:40:00* Test Item Value Reference Range Interpretation Comments Alkaline Phosphatase (test code = 6768-6) 79 40-150 [facility] or plasma creatine kinase measurement (enzymatic activity/volume)2020-04-18 05:40:00* Test Item Value Reference Range Interpretation Comments Creatine Kinase (test code = 2157-6) 53 29-168 [facility] Texas[facility]um or plasma creatine kinase MB measurement (mass/volume)2020-04-18 05:40:00* Test Item Value Reference Range Interpretation Comments Creatine Kinase MB (test code = 62163-8) 1.00 0-5.0 [facility] CenterTroponin I measurement by highly sensitive enzyme hsycyxcihxs3764-06-29 05:40:00* Test Item Value Reference Range Interpretation Comments Troponin I (test code = 10202-4) < 0.001 0-0.300 [facility] CenterCHEST SINGLE (PORTABLE)2020-04-17 18:20:00 [facility] [address] [address] Patient Name: VIRA MESSINA MR #: [id number] : 1955 Age/Sex: 64/F Req #: [id number] Adm Physician: Ordered by: Jie Bonilla MD Report #: [id number] Location: ER Room/Bed: Procedure: [id number] DX/CHEST S MARLINE (PORTABLE) Exam Date: 04/17/20 Exam Time: 1755 REPORT STATUS: Signed EXAMINATI ON: CHEST SINGLE (PORTABLE) INDICATION: History of COPD. COMPARIS ON: Multiple prior chest x-rays including most recent on 03/18/2020. Chest CT o n 03/19/2020 FINDINGS: TUBES and LINES: None. LUNGS: The lungs are hyperinflated with flattening of the diaphragms. There are promine nt interstitial lung markings. No focal consolidations. Bibasilar atelectasis . PLEURA: No pleural effusion or pneumothorax. HEART AND MEDIASTINUM: The cardiomediastinal silhouette is unremarkable. BONES AND SOFT TISS UES: No acute osseous lesion. Soft tissues are unremarkable. UPPER ABDO MEN: No free air under the diaphragm. IMPRESSION: Radiographic ch anges compatible with COPD. No focal consolidation, pleural effusion or pneumo thorax. Signed by: Olivia Portillo MD on 04/17/2020 6:21 PM Dictated By: OLIVIA PORTILLO MD 20 Transcribed By: SONAM on 04/17/201820 COPY TO: JIE BONILLA MD BNP Wwo-jCcy9812-32-06 18:09:00* Test Item Value Reference Range Interpretation Comments B-Type Natriuretic Peptide (test code = 78378-7) 12.6 0-100 [facility] SINGLE (PORTABLE)2020-03-31 20:27:[address] [address] Patient Name: VIRA MESSINA MR #: [id number] : 1955 Age/Sex: 64/F Req #: [id number] Adm Physician: Ordered by: EMILIA ALANIS DO Report #: [id number] Location: ER Room/Bed: Procedure: [id number] DX/CHEST SIN GLE (PORTABLE) Exam Date: 03/31/20 Exam Time: 1939 REPORT STATUS: Signed EXAMINATION : CHEST SINGLE (PORTABLE) INDICATION: SOB COMPARISON: Radiograph dated 03/18/2020. FINDINGS: Heart is nonenlarged. Pulmonary vascu lature is within normal limits. Unchanged prominent interstitial pulmonary markings, likely related to emphysema. No consolidation. No pleural effusion. No pneumothorax. IMPRESSION: No pneumonia or edema. Signed b y: Lizzeth Nelson MD on 03/31/2020 8:31 PM Dictated By: LIZZETH NELSON MD 30 Transcribed By: OLEKSANDR CERVANTES on 03/31/202030 COPY TO: EMILIA ALANIS DO Fluoroscopic procedure less than one hour qvnyektv5629-40-99 19:58:00* Test Item Value Reference Range Interpretation Comments Coronavirus (PCR) (test code = Coronavirus (PCR)) NOT DETECTED NOTD ETECTED SARS-CoV-2 PCRHologic Aptima SARS-CoV-2 assay is a nucleic amplification test in tended for the qualitative detection of RNA from SARS-CoV-2 from nasopharyngeal (ROUNDING MACHINE OPERATOR) specimens. It is used under Emergency Use Authorization (EUA) by FDA.A posi tive result is indicative of the presence of SARS-CoV-2 RNA. Clinical correlatio n with patient history and other diagnostic information is necessary to determin e patient infection status.A negative (Not Detected) result does not preclude SA RS-CoV-2 infection. Clinical Correlation with patient history and other diagnost ic information should be used in patient management decisions.Invalid: Unable to generate a valid result on this specimen. Please submit a new specimen for repr at testing oc clinically indicated.Tesing performed by:[facility] [place] [address] [id number], Jc ovalles MD, PhDSt. [facility] CenterFluoroscopic procedure less than one hour pwovdole9684-95-43 19:58:00* Test Item Value Reference Range Interpretation Comments Coronavirus (PCR) (test code = Coronavirus (PCR)) NOT DETECTED NOTD ETECTED SARS-CoV-2 PCRHologic Aptima SARS-CoV-2 assay is a nucleic amplification test in tended for the qualitative detection of RNA from SARS-CoV-2 from nasopharyngeal (ROUNDING MACHINE OPERATOR) specimens. It is used under Emergency Use Authorization (EUA) by FDA.A posi tive result is indicative of the presence of SARS-CoV-2 RNA. Clinical correlatio n with patient history and other diagnostic information is necessary to determin e patient infection status.A negative (Not Detected) result does not preclude SA RS-CoV-2 infection. Clinical Correlation with patient history and other diagnost ic information should be used in patient management decisions.Invalid: Unable to generate a valid result on this specimen. Please submit a new specimen for repr at testing oc clinically indicated.Tesing performed by:[facility] [place] [address] [id number], Jc ovalles MD, PhDSt. [facility] Medical CenterBlnew ulm medical center leukocytes automated count (number/volume)2020-03-31 19:29:00* Test Item Value Reference Range Interpretation Comments White Blood Count (test code = 6690-2) 11.21 4.8-10.8 [facility] CenterBlnew ulm medical center erythrocytes automated count (number/volume)2020-03-31 19:29:00* Test Item Value Reference Range Interpretation Comments Red Blood Count (test code = 789-8) 3.89 3.6-5.1 [facility] CenterBlood hemoglobin measurement (moles/volume)2020-03-31 19:29:00* Test Item Value Reference Range Interpretation Comments Hemoglobin (test code = 05229-5) 10.9 12.0-16.0 [facility] CenterAutomated blood hematocrit (volume fraction)2020-03-31 19:29:00* Test Item Value Reference Range Interpretation Comments Hematocrit (test code = 4544-3) 34.4 34.2-44.1 [facility] CenterAutomated erythrocyte mean corpuscular rqbusf7263-27-31 19:29:00* Test Item Value Reference Range Interpretation Comments Mean Corpuscular Volume (test code = 787-2) 88.4 81-99 [facility] CenterAutomated erythrocyte mean corpuscular hemoglobin (mass per erythrocyte)2020-03-31 19:29:00* Test Item Value Reference Range Interpretation Comments Mean Corpuscular Hemoglobin (test code = 785-6) 28.0 28-32 [facility] CenterAutomated erythrocyte mean corpuscular hemoglobin concentration measurement (mass/volume)2020-03-31 19:29:00* Test Item Value Reference Range Interpretation Comments Mean Corpuscular Hemoglobin Concent (test code = 786-4) 31.7 31-35 [facility] CenterRDW ZmjQn-Aij4344-43-19 19:29:00* Test Item Value Reference Range Interpretation Comments Red Cell Distribution Width (test code = 64373-0) 14.7 11.7 -14.4 [facility] CenterAutomated blood platelet count (count/volume)2020-03-31 19:29:00* Test Item Value Reference Range Interpretation Comments Platelet Count (test code = 777-3) 428 140-360 [facility] CenterAutomated blood segmented neutrophil count as percentage of total teylrvsxmp1756-50-77 19:29:00* Test Item Value Reference Range Interpretation Comments Neutrophils (%) (Auto) (test code = 19326-7) 68.4 38.7-80.0 [facility] CenterAutomated blood lymphocyte count as percentage ot total cxswskdfzb1338-80-52 19:29:00* Test Item Value Reference Range Interpretation Comments Lymphocytes (%) (Auto) (test code = 736-9) 19.1 18.0-39.1 [facility] CenterAutomated blood monocyte count as percentage of total nhnsoypqsv4239-63-85 19:29:00* Test Item Value Reference Range Interpretation Comments Monocytes (%) (Auto) (test code = 5905-5) 9.5 4.4-11.3 [facility] CenterAutomated blood eosinophil count as percentage of total qvbuomcwaa1625-28-16 19:29:00* Test Item Value Reference Range Interpretation Comments Eosinophils (%) (Auto) (test code = 713-8) 2.2 0.0-6.0 [facility] CenterAutomated blood basophil count as percentage of total nnisgtewjs5685-63-29 19:29:00* Test Item Value Reference Range Interpretation Comments Basophils (%) (Auto) (test code = 706-2) 0.3 0.0-1.0 [facility] CenterFluoroscopic procedure less than one hour qlsocbxf6941-88-56 19:29:00* Test Item Value Reference Range Interpretation Comments IM GRANULOCYTES % (test code = IM GRANULOCYTES %) 0.5 0.0- 1.0 [facility] CenterAutomated blood neutrophil count 2020-03-31 19:29:00* Test Item Value Reference Range Interpretation Comments Neutrophils # (Auto) (test code = 751-8) 7.7 2.1-6.9 [facility] CenterBlood lymphocytes count (number/volume) 2020-03-31 19:29:00* Test Item Value Reference Range Interpretation Comments Lymphocytes # (Auto) (test code = 89757-2) 2.1 1.0-3.2 [facility] CenterBlood monocytes automated count (number/volume)2020-03-31 19:29:00* Test Item Value Reference Range Interpretation Comments Monocytes # (Auto) (test code = 742-7) 1.1 0.2-0.8 [facility] CenterAutomated blood eosinophil count 2020-03-31 19:29:00* Test Item Value Reference Range Interpretation Comments Eosinophils # (Auto) (test code = 711-2) 0.3 0.0-0.4 [facility] CenterAutomated blood basophil count (count/volume)2020-03-31 19:29:00* Test Item Value Reference Range Interpretation Comments Basophils # (Auto) (test code = 704-7) 0.0 0.0-0.1 [facility] CenterFluoroscopic procedure less than one hour ifhytjcr8491-12-73 19:29:00* Test Item Value Reference Range Interpretation Comments Absolute Immature Granulocyte (auto (jasvir t code = Absolute Immature Granulocyte (auto) 0.06 0-0.1 [facility]um or plasma sodium measurement (moles/volume)2020-03-31 19:29:00* Test Item Value Reference Range Interpretation Comments Sodium Level (test code = 2951-2) 135 136-145 [facility] Texaserum or plasma potassium measurement (moles/volume)2020-03-31 19:29:00* Test Item Value Reference Range Interpretation Comments Potassium Level (test code = 2823-3) 4.0 3.5-5.1 [facility] or plasma chloride measurement (moles/volume)2020-03-31 19:29:00* Test Item Value Reference Range Interpretation Comments Chloride Level (test code = 2075-0) 100 98-107 [facility] Texaserum or plasma carbon dioxide, total measurement (moles/volume)2020-03-31 19:29:00* Test Item Value Reference Range Interpretation Comments Carbon Dioxide Level (test code = 2028-9) 24 22-29 [facility] Texaserum or plasma anion ayk9161-13-02 19:29:00* Test Item Value Reference Range Interpretation Comments Anion Gap (test code = 65494-2) 15.0 8-16 [facility] Texaserum or plasma urea nitrogen measurement (mass/volume)2020-03-31 19:29:00* Test Item Value Reference Range Interpretation Comments Blood Urea Nitrogen (test code = 3094-0) < 5 7-26 [facility]er[facility] or plasma creatinine measurement (mass/volume)2020-03-31 19:29:00* Test Item Value Reference Range Interpretation Comments Creatinine (test code = 2160-0) 0.66 0.57-1.11 [facility] Texaserum or plasma urea nitrogen/creatinine mass mmrjw9531-96-12 19:29:00* Test Item Value Reference Range Interpretation Comments BUN/Creatinine Ratio (test code = 3097-3) 8 6-25 [facility] CenterEstimated glomerular filtration rate (GFR) gceiwfsbofaqq6004-65-98 19:29:00* Test Item Value Reference Range Interpretation Comments Estimat Glomerular Filtration Rate (test code = 532456583) > 60 >60 Ranges were taken from the National Kidney Disease Education Program and the [facility] [employer] literature.Reference ranges:60 or greater: Fuhqkr89-28 ( for 3 consecutive months): Chronic kidney disease 15 or less: Kidney failureSt. David's South [facility] Medical CenterGlucose roatngytehz1830-82-21 19:29:00* Test Item Value Reference Range Interpretation Comments Glucose Level (test code = QTQ3180) 113 74-118 [facility] Texaserum or plasma calcium measurement (mass/volume)2020-03-31 19:29:00* Test Item Value Reference Range Interpretation Comments Calcium Level (test code = 49894-0) 9.0 8.4-10.2 [facility] CenterFluoroscopic procedure less than one hour wyhguvtp5327-23-65 19:29:00* Test Item Value Reference Range Interpretation Comments Lactic Acid Level (test code = Lactic Acid Level) 3.9 0.5- 2.0 Results repeated and called to [place] at 2004 on 03/31/20 by Bakari golden Read back and verified.[facility] or plasma total bilirubin measurement (mass/volume)2020-03-31 19:29:00* Test Item Value Reference Range Interpretation Comments Total Bilirubin (test code = 1975-2) 0.4 0.2-1.2 [facility] CenterFluoroscopic procedure less than one hour zsmbpadx6011-05-66 19:29:00* Test Item Value Reference Range Interpretation Comments Aspartate Amino Transf (AST/SGOT) (test code = Aspartate Amino Transf (AST/SGOT)) 13 5-34 [facility]er[facility] or plasma alanine aminotransferase measurement (enzymatic activity/volume)2020-03-31 19:29:00* Test Item Value Reference Range Interpretation Comments Alanine Aminotransferase (ALT/SGPT) (test code = 1742-6) < 6 0-55 [facility] or plasma protein measurement (mass/volume)2020-03-31 19:29:00* Test Item Value Reference Range Interpretation Comments Total Protein (test code = 2885-2) 6.8 6.5-8.1 [facility] or plasma albumin measurement (mass/volume)2020-03-31 19:29:00* Test Item Value Reference Range Interpretation Comments Albumin (test code = 1751-7) 3.9 3.5-5.0 [facility] CenterPlasma globulin measurement (mass/volume) 2020-03-31 19:29:00* Test Item Value Reference Range Interpretation Comments Globulin (test code = 94285-0) 2.9 2.3-3.5 [facility] or plasma albumin/globulin mass gkjdr0337-72-53 19:29:00* Test Item Value Reference Range Interpretation Comments Albumin/Globulin Ratio (test code = 1759-0) 1.3 0.8-2.0 [facility] or plasma alkaline phosphatase measurement (enzymatic activity/volume)2020-03-31 19:29:00* Test Item Value Reference Range Interpretation Comments Alkaline Phosphatase (test code = 6768-6) 80 40-150 [facility] CenterBNP Wgy-dGlo2050-22-19 19:29:00* Test Item Value Reference Range Interpretation Comments B-Type Natriuretic Peptide (test code = 99201-9) 43.8 0-100 [facility] or plasma creatine kinase measurement (enzymatic activity/volume)2020-03-31 19:29:00* Test Item Value Reference Range Interpretation Comments Creatine Kinase (test code = 2157-6) 47 29-168 [facility]er[facility] or plasma creatine kinase MB measurement (mass/volume)2020-03-31 19:29:00* Test Item Value Reference Range Interpretation Comments Creatine Kinase MB (test code = 89575-1) 1.20 0-5.0 [facility] CenterTroponin I measurement by highly sensitive enzyme svdqjsgybev7275-21-34 19:29:00* Test Item Value Reference Range Interpretation Comments Troponin I (test code = 37262-3) < 0.001 0-0.300 [facility] CenterBlood gdpxagc6270-29-95 19:29:00* Test Item Value Reference Range Interpretation Comments Blood Culture (test code = 65749525) NO GROWTH AFTER [address] [facility] CenterFluoroscopic procedure less than one hour sdbgbxtc6355-98-47 19:29:00* Test Item Value Reference Range Interpretation Comments Lactic Acid Level (test code = Lactic Acid Level) 3.9 0.5- 2.0 Results repeated and called to [place] at 2004 on 03/31/20 by Bakari golden Read back and verified.[facility] CenterBlood culture 2020-03-31 19:29:00* Test Item Value Reference Range Interpretation Comments Blood Culture (test code = 66725025) NO GROWTH AFTER 5 DAYS, FINAL REPORT [facility] CenterMODIFIED BA. 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 SWALLOW Exam Date: 03/20/20 Exam Time: 1345 REPORT STATUS: Signed PROCEDURE: X-RAY MODIFIED BARIUM SWALLOW COMPARISON: None. INDICATION: Aspiration Radiation Details: Fluoroscopy time: 1.1 minutes Cumulative dose: 5.1 mGy DISCUSSION: Fluoroscopic examination was performed in [facility] with [facility] during swallowing a variety of thin and thick liquid consistencie s. Provided images demonstrate trace laryngeal penetration and no aspiration. CONCLUSION: Modified barium swallow demonstrating trace laryngeal penet ration and no aspiration. Please refer to the speech pathology report for furt her details. Signed by: Elina Núñez MD on 03/23/2020 10:16 AM Dictate d By: ELINA NÚÑEZ MD 1016 T ranscribed By: SONAM on 03/23/20 1016 COPY TO: VICTORIANO HICKS NP Blood leukocytes automated count (number/volume)2020-03-21 07:05:00* Test Item Value Reference Range Interpretation Comments White Blood Count (test code = 6690-2) 11.59 4.8-10.8 [facility] CenterBlood erythrocytes automated count (number/volume)2020-03-21 07:05:00* Test Item Value Reference Range Interpretation Comments Red Blood Count (test code = 789-8) 3.10 3.6-5.1 [facility] CenterBlood hemoglobin measurement (moles/volume)2020-03-21 07:05:00* Test Item Value Reference Range Interpretation Comments Hemoglobin (test code = 78355-4) 8.6 12.0-16.0 [facility] CenterAutomated blood hematocrit (volume fraction)2020-03-21 07:05:00* Test Item Value Reference Range Interpretation Comments Hematocrit (test code = 4544-3) 27.5 34.2-44.1 [facility] CenterAutomated erythrocyte mean corpuscular obcunh1324-88-09 07:05:00* Test Item Value Reference Range Interpretation Comments Mean Corpuscular Volume (test code = 787-2) 88.7 81-99 [facility] CenterAutomated erythrocyte mean corpuscular hemoglobin (mass per erythrocyte)2020-03-21 07:05:00* Test Item Value Reference Range Interpretation Comments Mean Corpuscular Hemoglobin (test code = 785-6) 27.7 28-32 [facility] CenterAutomated erythrocyte mean corpuscular hemoglobin concentration measurement (mass/volume)2020-03-21 07:05:00* Test Item Value Reference Range Interpretation Comments Mean Corpuscular Hemoglobin Concent (test code = 786-4) 31.3 31-35 [facility] CenterRDW OctNw-Wol6594-13-09 07:05:00* Test Item Value Reference Range Interpretation Comments Red Cell Distribution Width (test code = 50505-7) 14.8 11.7 -14.4 [facility] CenterAutomated blood platelet count (count/volume)2020-03-21 07:05:00* Test Item Value Reference Range Interpretation Comments Platelet Count (test code = 777-3) 281 140-360 [facility]ed blood segmented neutrophil count as percentage of total rvunkahnyo7176-26-77 07:05:00* Test Item Value Reference Range Interpretation Comments Neutrophils (%) (Auto) (test code = 95751-1) 86.5 38.7-80.0 [facility] CenterAutomated blood lymphocyte count as percentage ot total uiguxemdiz3654-46-95 07:05:00* Test Item Value Reference Range Interpretation Comments Lymphocytes (%) (Auto) (test code = 736-9) 5.3 18.0-39.1 [facility] CenterAutomated blood monocyte count as percentage of total lrwstkdgaf9591-81-57 07:05:00* Test Item Value Reference Range Interpretation Comments Monocytes (%) (Auto) (test code = 5905-5) 7.4 4.4-11.3 [facility] CenterAutomated blood eosinophil count as percentage of total ipwtaqxlda2280-15-49 07:05:00* Test Item Value Reference Range Interpretation Comments Eosinophils (%) (Auto) (test code = 713-8) 0.0 0.0-6.0 [facility] CenterAutomated blood basophil count as percentage of total jryejendkt5494-56-61 07:05:00* Test Item Value Reference Range Interpretation Comments Basophils (%) (Auto) (test code = 706-2) 0.0 0.0-1.0 [facility] CenterFluoroscopic procedure less than one hour zihurjwg8948-55-23 07:05:00* Test Item Value Reference Range Interpretation Comments IM GRANULOCYTES % (test code = IM GRANULOCYTES %) 0.8 0.0- 1.0 [facility] CenterAutomated blood neutrophil count 2020-03-21 07:05:00* Test Item Value Reference Range Interpretation Comments Neutrophils # (Auto) (test code = 751-8) 10.0 2.1-6.9 [facility] CenterBlood lymphocytes count (number/volume) 2020-03-21 07:05:00* Test Item Value Reference Range Interpretation Comments Lymphocytes # (Auto) (test code = 48612-3) 0.6 1.0-3.2 [facility] CenterBlood monocytes automated count (number/volume)2020-03-21 07:05:00* Test Item Value Reference Range Interpretation Comments Monocytes # (Auto) (test code = 742-7) 0.9 0.2-0.8 [facility] CenterAutomated blood eosinophil count 2020-03-21 07:05:00* Test Item Value Reference Range Interpretation Comments Eosinophils # (Auto) (test code = 711-2) 0.0 0.0-0.4 [facility] CenterAutomated blood basophil count (count/volume)2020-03-21 07:05:00* Test Item Value Reference Range Interpretation Comments Basophils # (Auto) (test code = 704-7) 0.0 0.0-0.1 [facility] CenterFluoroscopic procedure less than one hour umbatlug1730-23-31 07:05:00* Test Item Value Reference Range Interpretation Comments Absolute Immature Granulocyte (auto (jasvir t code = Absolute Immature Granulocyte (auto) 0.09 0-0.1 [facility] Texaserum or plasma sodium measurement (moles/volume)2020-03-21 07:05:00* Test Item Value Reference Range Interpretation Comments Sodium Level (test code = 2951-2) 136 136-145 [facility] Texaserum or plasma potassium measurement (moles/volume)2020-03-21 07:05:00* Test Item Value Reference Range Interpretation Comments Potassium Level (test code = 2823-3) 4.0 3.5-5.1 [facility] Texaserum or plasma chloride measurement (moles/volume)2020-03-21 07:05:00* Test Item Value Reference Range Interpretation Comments Chloride Level (test code = 2075-0) 101 98-107 [facility] Texaserum or plasma carbon dioxide, total measurement (moles/volume)2020-03-21 07:05:00* Test Item Value Reference Range Interpretation Comments Carbon Dioxide Level (test code = 2028-9) 22 22-29 [facility] Texaserum or plasma anion xjj5224-77-38 07:05:00* Test Item Value Reference Range Interpretation Comments Anion Gap (test code = 31786-0) 17.0 8-16 [facility]erum or plasma urea nitrogen measurement (mass/volume)2020-03-21 07:05:00* Test Item Value Reference Range Interpretation Comments Blood Urea Nitrogen (test code = 3094-0) 10 7-26 [facility]erum or plasma creatinine measurement (mass/volume)2020-03-21 07:05:00* Test Item Value Reference Range Interpretation Comments Creatinine (test code = 2160-0) 0.65 0.57-1.11 [facility] Texaserum or plasma urea nitrogen/creatinine mass pclio6785-81-69 07:05:00* Test Item Value Reference Range Interpretation Comments BUN/Creatinine Ratio (test code = 3097-3) 15 6-25 [facility] CenterEstimated glomerular filtration rate (GFR) jzholvdzofcav8098-85-90 07:05:00* Test Item Value Reference Range Interpretation Comments Estimat Glomerular Filtration Rate (test code = 930843027) > 60 >60 Ranges were taken from the National Kidney Disease Education Program and the [facility] literature.Reference ranges:60 or greater: Smfyof15-83 ( for 3 consecutive months): Chronic kidney disease 15 or less: Kidney failureSt. [facility] CenterGlucose wlymbzvrqba1415-45-87 07:05:00* Test Item Value Reference Range Interpretation Comments Glucose Level (test code = UWD6468) 141 74-118 [facility]er[facility] or plasma calcium measurement (mass/volume)2020-03-21 07:05:00* Test Item Value Reference Range Interpretation Comments Calcium Level (test code = 03379-7) 8.6 8.4-10.2 [facility] or plasma total bilirubin measurement (mass/volume)2020-03-21 07:05:00* Test Item Value Reference Range Interpretation Comments Total Bilirubin (test code = 1975-2) 0.2 0.2-1.2 [facility] CenterFluoroscopic procedure less than one hour uuvdmptc2091-25-92 07:05:00* Test Item Value Reference Range Interpretation Comments Aspartate Amino Transf (AST/SGOT) (test code = Aspartate Amino Transf (AST/SGOT)) 9 5-34 [facility] or plasma alanine aminotransferase measurement (enzymatic activity/volume)2020-03-21 07:05:00* Test Item Value Reference Range Interpretation Comments Alanine Aminotransferase (ALT/SGPT) (test code = 1742-6) < 6 0-55 [facility] or plasma protein measurement (mass/volume)2020-03-21 07:05:00* Test Item Value Reference Range Interpretation Comments Total Protein (test code = 2885-2) 6.2 6.5-8.1 [facility] or plasma albumin measurement (mass/volume)2020-03-21 07:05:00* Test Item Value Reference Range Interpretation Comments Albumin (test code = 1751-7) 3.5 3.5-5.0 [facility] CenterPlasma globulin measurement (mass/volume) 2020-03-21 07:05:00* Test Item Value Reference Range Interpretation Comments Globulin (test code = 83124-9) 2.7 2.3-3.5 [facility] or plasma albumin/globulin mass budnb5677-81-99 07:05:00* Test Item Value Reference Range Interpretation Comments Albumin/Globulin Ratio (test code = 1759-0) 1.3 0.8-2.0 [facility] or plasma alkaline phosphatase measurement (enzymatic activity/volume)2020-03-21 07:05:00* Test Item Value Reference Range Interpretation Comments Alkaline Phosphatase (test code = 6768-6) 61 40-150 [facility] CenterPhosphorus gxmlcbcephp4151-37-44 06:17:00 * Test Item Value Reference Range Interpretation Comments Phosphorus Level (test code = QKU6608) 3.8 2.3-4.7 [facility] or plasma magnesium measurement (mass/volume)2020-03-20 06:17:00* Test Item Value Reference Range Interpretation Comments Magnesium Level (test code = 86513-9) 1.8 1.3-2.1 [facility] Texas[facility]um or plasma thyrotropin measurement by detection limit <= 0.005 miu/l (units/volume)2020-03-20 06:17:00* Test Item Value Reference Range Interpretation Comments Thyroid Stimulating Hormone (TSH) (test code = 85611-1) 0.395 0.350-4.940 [facility] CenterPhosphorus cyswtsyvjud8678-56-21 06:17:00 * Test Item Value Reference Range Interpretation Comments Phosphorus Level (test code = YOA8530) 3.8 2.3-4.7 [facility] or plasma magnesium measurement (mass/volume)2020-03-20 06:17:00* Test Item Value Reference Range Interpretation Comments Magnesium Level (test code = 89015-7) 1.8 1.3-2.1 [facility]er[facility] or plasma thyrotropin measurement by detection limit <= 0.005 miu/l (units/volume)2020-03-20 06:17:00* Test Item Value Reference Range Interpretation Comments Thyroid Stimulating Hormone (TSH) (test code = 91633-4) 0.395 0.350-4.940 [facility] CenterPhosphorus nacleblidjl8104-57-60 06:17:00 * Test Item Value Reference Range Interpretation Comments Phosphorus Level (test code = CIY0581) 3.8 2.3-4.7 [facility] or plasma magnesium measurement (mass/volume)2020-03-20 06:17:00* Test Item Value Reference Range Interpretation Comments Magnesium Level (test code = 64822-7) 1.8 1.3-2.1 [facility] or plasma thyrotropin measurement by detection limit <= 0.005 miu/l (units/volume)2020-03-20 06:17:00* Test Item Value Reference Range Interpretation Comments Thyroid Stimulating Hormone (TSH) (test code = 99043-4) 0.395 0.350-4.940 [facility] CenterCT CHEST [id number] 17:36:00 [facility] [address] [place] [address] Patient Name: VIRA MESSINA MR #: [id number] : 1955 Age/Sex: 64/F Req #: [id number] Adm Physician: ALIE DUARTE MD Ordered by: SONNY MEDRANO ROUNDING MACHINE OPERATOR Report #: [id number] Location: MED/SURG3 Room/Bed: 290-1 Procedure: [id number] CT/CT CHEST WO Exam Date: 03/19/20 Exam Time: 1659 REPORT STATUS: Signed EXAM: CT Chest WITHOUT con trast INDICATION: Pneumonia, +SOB x 1 week COMPARISON: Multiple prior ch est radiographs including most recent on 03/18/2020. TECHNIQUE: Chest was s canned utilizing a multidetector helical scanner from the lung apex through th e level of the adrenal glands without administration of IV contrast. Absence o f intravenous contrast decreases sensitivity for detection of lymphadenopathy and vascular pathology. Coronal and sagittal reformations were obtained. Routi ne protocol was performed. IV CONTRAST: None COMPLICATIONS: None RADIATION DOSE: Total DLP: 476.24 mGy*cm Estimated effective dose: (DLP x 0.014 x size factor) mSv CTDIvol has been reviewed. It is b elow the limits set by the Radiation Protocol Committee (RPC). Dose mod ulation, iterative reconstruction, and/or weight based adjustment of the mA/kV was utilized to reduce the radiation dose to as low as reasonably achievable. FINDINGS: LINES/ TUBES: None. LUNGS AND AIRWAYS: Th ere is background of mild centrilobular emphysema predominantly in the upper l obes. There is bibasilar atelectasis. No focal consolidation or suspicious pul monary nodule/mass. There is area of subtle groundglass opacity in the right u pper lobe (series 3 image 30) which is nonspecific. Airways are normal. P LEURA: The pleural spaces are clear. HEART AND MEDIASTINUM: The thyroid gla nd is normal. There are multiple prominent mediastinal lymph nodes, none of wh ich meet criteria for pathologic enlargement and likely reactive. No mediastin al, hilar or axillary lymphadenopathy. The heart is normal in size with ather osclerotic calcification of the coronary vessels. There is no pericardial effu felipe. The thoracic aorta has normal caliber with atherosclerotic calcificatio n of the arch. Main pulmonary trunk has normal caliber measuring 2.2 cm. UPPER ABDOMEN: Unremarkable. BONES: The bones are diffusely demineralized. There are multilevel degenerative changes in the thoracic spine. There are mul tiple consecutive compression fractures involving T5-L2 vertebral bodies. Ther e is diastases of the L1 vertebral body with minimal retropulsion. SOFT T ISSUES: Unremarkable. IMPRESSION: 1. Background of mild centrilobular em physema with bibasilar atelectasis. No focal consolidation or suspicious pulmo nary nodule/mass. Area of subtle groundglass opacity in the right upper lobe i s nonspecific and likely represents atelectasis and/or aspiration. 2. 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 Diastases of the L1 vertebral body w ith minimal retropulsion. Correlate with point tenderness and history of falls . 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 CenterTroponin I measurement by highly sensitive enzyme vcubbhbdsgx9149-47-26 16:34:00* Test Item Value Reference Range Interpretation Comments Troponin I (test code = 44560-6) 0.002 0-0.300 [facility] CenterCHEST SINGLE (PORTABLE)2020-03-19 00:29:00 [place] [address] Patient Name: VIRA MESSINA MR #: [id number] : 1955 Age/Sex: 64/F Req #: [id number] Adm Physician: Ordered by: JC DYER MD Report #: [id number] Location: ER Room/Bed: Procedure: [id number] DX/CHEST SINGLE (PORTABLE) Exam Date: 03/18/20 Exam Time: REPORT STATUS: Signed EXAMINA TION: CHEST SINGLE (PORTABLE) INDICATION: Y SOB, COUGH [id number] Y COMPARISON: 01/26/2020 FINDINGS: AP view TUBES and LINES: None. LUNGS: Lungs are well inflated. Mild centr al vascular congestion. Minimal retrocardiac haziness. PLEURA: No signif icant pleural effusion or pneumothorax. HEART AND MEDIASTINUM: The cardiom ediastinal silhouette is unremarkable. BONES AND SOFT TISSUES: No acut e osseous lesion. Soft tissues are unremarkable. UPPER ABDOMEN: No free air under the diaphragm. IMPRESSION: Mild central vascular congestio n. Minimal retrocardiac haziness, likely subsegmental atelectasis. Developing pneumonia cannot be excluded in the appropriate clinical context. Signed by: Dr. Ania Buckner MD on 03/19/2020 12:30 AM Dictated By: ANIA BUCKNER MD Transcribed By : SONAM on 03/19/2029 COPY TO: JC DYER MD Urine color gzzsrbnskrsgc1477-91-04 00:25:00* Test Item Value Reference Range Interpretation Comments Urine Color (test code = 5778-6) YELLOW YELLOW [facility] CenterUrine qidklip5533-79-95 00:25:00* Test Item Value Reference Range Interpretation Comments Urine Clarity (test code = 12699-8) CLEAR CLEAR [facility] Texaspecific gravity of Urine by Test strip 2020-03-19 00:25:00* Test Item Value Reference Range Interpretation Comments Urine Specific [place] (test code = 5811-5) 1.010 1.010-1.[address] [facility] CenterUrine pH measurement by automated test phgpy8150-25-71 00:25:00* Test Item Value Reference Range Interpretation Comments Urine pH (test code = 65160-2) 6 5-7 [facility] CenterUrine leukocyte esterase detection by teclgpvo2029-01-46 00:25:00* Test Item Value Reference Range Interpretation Comments Urine Leukocyte Esterase (test code = 5799-2) NEGATIVE NEGATIVE [facility] CenterUrine nitrite sjtcmamtw0009-67-46 00:25:00* Test Item Value Reference Range Interpretation Comments Urine Nitrite (test code = 63126-6) NEGATIVE NEGATIVE [facility] CenterUrine protein measurement by test strip (mass/volume)2020-03-19 00:25:00* Test Item Value Reference Range Interpretation Comments Urine Protein (test code = 5804-0) NEGATIVE NEGATIVE [facility] CenterUrine glucose uhppcmpgj7679-31-74 00:25:00* Test Item Value Reference Range Interpretation Comments Urine Glucose (UA) (test code = 2349-9) NEGATIVE NEGATIVE [facility] CenterUrine ketones detection by automated test iirky0134-67-13 00:25:00* Test Item Value Reference Range Interpretation Comments Urine Ketones (test code = 86693-2) NEGATIVE NEGATIVE [facility] CenterUrine urobilinogen measurement by test strip (mass/volume)2020-03-19 00:25:00* Test Item Value Reference Range Interpretation Comments Urine Urobilinogen (test code = 69938-2) 0.2 0.2-1 [facility] CenterUrine total bilirubin measurement (mass/volume)2020-03-19 00:25:00* Test Item Value Reference Range Interpretation Comments Urine Bilirubin (test code = 1978-6) NEGATIVE NEGATIVE [facility] CenterUrine erythrocytes afzqgttjv2950-22-90 00:25:00* Test Item Value Reference Range Interpretation Comments Urine Blood (test code = 64089-0) TRACE NEGATIVE [facility] CenterAutomated urine sediment leukocyte count by microscopy (number/high power field)2020-03-19 00:25:00* Test Item Value Reference Range Interpretation Comments Urine WBC (test code = 5821-4) 0-5 0-5 [facility] CenterErythrocytes detection in urine sediment by light ddntmzdnfr6217-42-68 00:25:00* Test Item Value Reference Range Interpretation Comments Urine RBC (test code = 88434-6) 0-5 0-5 [facility] CenterBacteria detection in urine sediment by light edvdzmroxh0747-05-38 00:25:00* Test Item Value Reference Range Interpretation Comments Urine Bacteria (test code = 69027-2) RARE NONE [facility] CenterEpithelial cells detection in urine sediment by light bdwvedocma6449-72-19 00:25:00* Test Item Value Reference Range Interpretation Comments Urine Epithelial Cells (test code = 54377-2) FEW NONE [facility] CenterUrine color rhfquwgrnlwni6756-19-17 00:25:00* Test Item Value Reference Range Interpretation Comments Urine Color (test code = 5778-6) YELLOW YELLOW [facility] CenterUrine vcdqrtp9319-06-54 00:25:00* Test Item Value Reference Range Interpretation Comments Urine Clarity (test code = 57065-9) CLEAR CLEAR [facility] Texaspecific gravity of Urine by Test strip 2020-03-19 00:25:00* Test Item Value Reference Range Interpretation Comments Urine Specific [place] (test code = 5811-5) 1.010 1.010-1.[address] [facility] CenterUrine pH measurement by automated test tfcpj8567-44-38 00:25:00* Test Item Value Reference Range Interpretation Comments Urine pH (test code = 30944-0) 6 5-7 [facility] CenterUrine leukocyte esterase detection by ypfshklc8573-05-08 00:25:00* Test Item Value Reference Range Interpretation Comments Urine Leukocyte Esterase (test code = 5799-2) NEGATIVE NEGATIVE [facility] CenterUrine nitrite sxilmiovg7212-63-83 00:25:00* Test Item Value Reference Range Interpretation Comments Urine Nitrite (test code = 53893-2) NEGATIVE NEGATIVE [facility] CenterUrine protein measurement by test strip (mass/volume)2020-03-19 00:25:00* Test Item Value Reference Range Interpretation Comments Urine Protein (test code = 5804-0) NEGATIVE NEGATIVE [facility] CenterUrine glucose qtrkfwceb2955-07-29 00:25:00* Test Item Value Reference Range Interpretation Comments Urine Glucose (UA) (test code = 2349-9) NEGATIVE NEGATIVE [facility] CenterUrine ketones detection by automated test colvi5186-62-91 00:25:00* Test Item Value Reference Range Interpretation Comments Urine Ketones (test code = 07132-7) NEGATIVE NEGATIVE [facility] CenterUrine urobilinogen measurement by test strip (mass/volume)2020-03-19 00:25:00* Test Item Value Reference Range Interpretation Comments Urine Urobilinogen (test code = 76532-3) 0.2 0.2-1 [facility] CenterUrine total bilirubin measurement (mass/volume)2020-03-19 00:25:00* Test Item Value Reference Range Interpretation Comments Urine Bilirubin (test code = 1978-6) NEGATIVE NEGATIVE [facility] CenterUrine erythrocytes jjsuvxmuj3427-61-84 00:25:00* Test Item Value Reference Range Interpretation Comments Urine Blood (test code = 01900-4) TRACE NEGATIVE [facility] CenterAutomated urine sediment leukocyte count by microscopy (number/high power field)2020-03-19 00:25:00* Test Item Value Reference Range Interpretation Comments Urine WBC (test code = 5821-4) 0-5 0-5 [facility] CenterErythrocytes detection in urine sediment by light xpzdgvfpom8780-65-26 00:25:00* Test Item Value Reference Range Interpretation Comments Urine RBC (test code = 44479-2) 0-5 0-5 [facility] CenterBacteria detection in urine sediment by light yejrnjubdf4601-28-81 00:25:00* Test Item Value Reference Range Interpretation Comments Urine Bacteria (test code = 49547-5) RARE NONE [facility] CenterEpithelial cells detection in urine sediment by light nluhiqezfd4184-15-84 00:25:00* Test Item Value Reference Range Interpretation Comments Urine Epithelial Cells (test code = 26815-2) FEW NONE [facility] CenterUrine color iytvnqtcpmkji8544-20-40 00:25:00* Test Item Value Reference Range Interpretation Comments Urine Color (test code = 5778-6) YELLOW YELLOW [facility] CenterUrine opgawfc4540-92-84 00:25:00* Test Item Value Reference Range Interpretation Comments Urine Clarity (test code = 58472-9) CLEAR CLEAR [facility] Texaspecific gravity of Urine by Test strip 2020-03-19 00:25:00* Test Item Value Reference Range Interpretation Comments Urine Specific [place] (test code = 5811-5) 1.010 1.010-1.[address] [facility] CenterUrine pH measurement by automated test yrjum2449-21-48 00:25:00* Test Item Value Reference Range Interpretation Comments Urine pH (test code = 07204-8) 6 5-7 [facility] CenterUrine leukocyte esterase detection by foclyzfq3300-69-93 00:25:00* Test Item Value Reference Range Interpretation Comments Urine Leukocyte Esterase (test code = 5799-2) NEGATIVE NEGATIVE [facility] CenterUrine nitrite bzerbigxd0936-60-80 00:25:00* Test Item Value Reference Range Interpretation Comments Urine Nitrite (test code = 34979-8) NEGATIVE NEGATIVE [facility] CenterUrine protein measurement by test strip (mass/volume)2020-03-19 00:25:00* Test Item Value Reference Range Interpretation Comments Urine Protein (test code = 5804-0) NEGATIVE NEGATIVE [facility] CenterUrine glucose iihjjhovt4512-66-06 00:25:00* Test Item Value Reference Range Interpretation Comments Urine Glucose (UA) (test code = 2349-9) NEGATIVE NEGATIVE [facility] CenterUrine ketones detection by automated test nilev6649-03-52 00:25:00* Test Item Value Reference Range Interpretation Comments Urine Ketones (test code = 57466-7) NEGATIVE NEGATIVE [facility] CenterUrine urobilinogen measurement by test strip (mass/volume)2020-03-19 00:25:00* Test Item Value Reference Range Interpretation Comments Urine Urobilinogen (test code = 88387-8) 0.2 0.2-1 [facility] CenterUrine total bilirubin measurement (mass/volume)2020-03-19 00:25:00* Test Item Value Reference Range Interpretation Comments Urine Bilirubin (test code = 1978-6) NEGATIVE NEGATIVE [facility] CenterUrine erythrocytes tudefgrze9192-52-72 00:25:00* Test Item Value Reference Range Interpretation Comments Urine Blood (test code = 89618-1) TRACE NEGATIVE [facility] CenterAutomated urine sediment leukocyte count by microscopy (number/high power field)2020-03-19 00:25:00* Test Item Value Reference Range Interpretation Comments Urine WBC (test code = 5821-4) 0-5 0-5 [facility] CenterErythrocytes detection in urine sediment by light bbedhbptro9950-81-72 00:25:00* Test Item Value Reference Range Interpretation Comments Urine RBC (test code = 19661-1) 0-5 0-5 [facility] CenterBacteria detection in urine sediment by light dhlddjdoze3490-00-27 00:25:00* Test Item Value Reference Range Interpretation Comments Urine Bacteria (test code = 56828-6) RARE NONE [facility] CenterEpithelial cells detection in urine sediment by light qbgdlbtehx9154-16-42 00:25:00* Test Item Value Reference Range Interpretation Comments Urine Epithelial Cells (test code = 03851-5) FEW NONE [facility] CenterFluoroscopic procedure less than one hour loxeunqh3668-65-29 22:45:00* Test Item Value Reference Range Interpretation Comments Coronavirus (PCR) (test code = Coronavirus (PCR)) NOT DETECTED NOTD ETECTED SARS-COV2/RT-PCR CEPHEIDResults are for the detection of SARS-COV-2 RNA. The LUIZA S-COV-2 RNA is generally detectable in nasopharyngeal swab specimens during the acute phase of infection. Positive results are indicitive of active infection wi th SARS-COV-2; clinical correlation with patient history and other diagnostic in formation is necessary to determine patient infection status. Positive results d o not rule out bacterial infection or co-infection with other viruses. The agent detected may not be the definite cause of the disease.The limit of detection fo r this assay is 250 copies/mLThe SARS-CoV-2 test is a rapid, real-time RT-PCR te st intended for the qualitative detection of nucleic acid from SARS-CoV-2 in abby opharyngeal swab specimen collected from individuals suspected of COVID-19 by [facility]. This test has not been Food and Drug Administration (FD A) cleared or approved and has been authorized by FDA under an Emergency Use Aut horization (EUA). This EUA will be effective until the declaration that circumst ances exist justifying the authorization of the emergency use of in vitro diagno stic test for detection and or diagnosis of COVID-19 is terminated under section 564(b) of the Act, or the the EUA is revoked under 564(g) of the ACT. SARS-COV2 /RT-PCR CEPHEIDResults are for the detection of SARS-COV-2 RNA. The SARS-COV-2 R NA is generally detectable in nasopharyngeal swab specimens during the acute pha se of infection. Positive results are indicitive of active infection with SARS-C OV-2; clinical correlation with patient history and other diagnostic information is necessary to determine patient infection status. Positive results do not rul e out bacterial infection or co-infection with other viruses. The agent detected may not be the definite cause of the disease.The limit of detection for this as say is 250 copies/mLThe SARS-CoV-2 test is a rapid, real-time RT-PCR test intend ed for the qualitative detection of nucleic acid from SARS-CoV-2 in nasopharynge al swab specimen collected from individuals suspected of COVID-19 by their healt hcare provider. This test has not been Food and Drug Administration (FDA) cleare d or approved and has been authorized by FDA under an Emergency Use Authorizatio n (EUA). This EUA will be effective until the declaration that circumstances exi st justifying the authorization of the emergency use of in vitro diagnostic test for detection and or diagnosis of COVID-19 is terminated under section 564(b) o f the Act, or the the EUA is revoked under 564(g) of the ACT.[facility] CenterFluoroscopic procedure less than one hour duration 2020-03-18 22:22:00* Test Item Value Reference Range Interpretation Comments Lactic Acid Level (test code = Lactic Acid Level) 1.5 0.5- 2.0 [facility] CenterBlood xuyguei3751-37-78 22:22:00* Test Item Value Reference Range Interpretation Comments Blood Culture (test code = 35601056) NO GROWTH AFTER 48 [address] [facility] CenterB-TYPE NATRIURETIC [id number] 04:42:00* Test Item Value Reference Range Interpretation Comments B-TYPE NATRIURETIC PEPTIDE (test code = BNP) 36.08 pgram/mL 0-100 N COVID 19 INHOUSE [id number] 03:46:00* Test Item Value Reference Range Interpretation Comments COVID 19 INHOUSE AG (test code = [id number]) NEGATIVE BASIC METABOLIC [id number] 03:41:00* Test Item Value Reference Range Interpretation [...] code = CA) 8.7 mg/dL 8.5-10.1 N [id number]-[id number] 03:41:00* Test Item Value Reference Range Interpretation Comments TROPONIN-I (test code = TROPI) <0.015 ng/mL 0-0.045 N - XR CHEST 1 [id number] 03:29:00 FAX: Ari Moreno DO [phone] [place]: B St: REG FAX: Roshan Petty DO Name: VIRA MESSINA [facility] : 1955 Age/S: 64/F [address] [facility]: [id number] Loc: [place] [address] Phys: Roshan Petty DO Acct: [id number] Dis Date: Status: REG ER PHONE #: [phone] Exam Date: 03/16/2020314 FAX #: [phone] Reason: CHEST PAIN EXAMS: CPT CODE: [id number] XR CHEST 1 V 76935 EXAM: - XR CHEST 1 V COMPARISON: 01/27/2020 LOCATION: H57 HISTORY: 64 years-old Female with CHEST PAIN [...] Fabrizio 1 Orig Print D/T: S: 03/16/2020 (4928) PAGE 1 Signed Report CBC W/O DIFF [...] MPV) 9.4 fL 6.7-11.0 N CBC W/O [id number] 03:07:00* Test Item Value Reference Range Interpretation [...] code = MPV) fL 6.7-11.0 B-TYPE NATRIURETIC [id number] 14:27:00* Test Item Value Reference Range Interpretation Comments B-TYPE NATRIURETIC PEPTIDE (test code = BNP) 110.41 pgram/mL 0-100 H Coronavirus 2019 nCoV Qktjwvs4562-57-40 14:21:00* Test Item Value Reference Range Interpretation Comments Coronavirus 2019 nCoV Bedside (test code = [id number]) Negative Is patient requiring admission or transfer? YIndication for rapid COVID-19 testi ng: Mod Clinical SuspicionLACTIC ACID 2020-01-27 13:55:00* Test Item Value Reference Range Interpretation Comments LACTIC ACID (test code = LACT) 2.7 mmol/L 0.4-1.9 HH Results called to AUDI MARIENVQ3461ha V.LAB. 01/27/20 1354Critical results verified and read back by Nurse? Y BASIC METABOLIC [id number] 13:44:00* Test Item Value Reference Range Interpretation [...] CA) 9.1 mg/dL 8.5-10.1 N HEPATIC FUNCTION [id number] 13:44:00* Test Item Value Reference Range Interpretation [...] code = LDH) 171 IUnit/L 84-246 N [id number] 13:44:00* Test Item Value Reference Range Interpretation Comments LIPASE (test code = LIP) 35 U/L 73.0-393.0 L [id number]-[id number] 13:44:00* Test Item Value Reference Range Interpretation Comments TROPONIN-I (test code = TROPI) <0.015 ng/mL 0-0.045 N [id number] 13:44:00* Test Item Value Reference Range Interpretation Comments FERRITIN (test code = ASHOK) 16 ng/mL 8-388 N - XR CHEST 1 [id number] 13:41:00 FAX: Ari Moreno DO [phone] [place]: St: [facility] FAX: Roshan Petty DO Name: VIRA MESSINA [facility] : 1955 Age/S: 64/F [address] [facility] Unit #: [id number] Loc: [place] [address] Phys: Roshan Petty DO Acct: [id number] Dis Date: Status: REG ER PHONE #: [phone] Exam Date: 01/27/2020 1325 FAX #: [phone] Reason: SHORTNESS OF BREATH EXAMS: CPT CODE: [id number] XR CHEST 1 V 36386 REASON FOR EXAM: SHORTNESS OF BREATH Exam Order Date: 01/27/2020 12:31 PM Ordering MSapna: Roshan Petty DO PROCEDURE: - XR CHEST [...] IMPRESSION: No acute cardiopulmonary proces s. Location: [facility] at 1341 Reported and signed by: Isaiah Archuleta MD CC: Ari Carmichael; Roshan Petty DO Technologist: RT ALESSIO(R) Trnscrd D ate/Time/By: 01/27/2020 (3279) : By: [email or web address] Orig Print D/T: S: 01/10 (8636) PAGE 1 Signed Ken bertrand D-[id number] 13:34:00* Test Item Value Reference Range Interpretation Comments D-DIMER (test code = DDIMER) 973.00 ng/mLFEU 0-500 HH Results called to [id number] by GIANCARLO 01/27/20 1333Critical results verified and read back [...] skin infections -Liver cirrhosis - BASIC METABOLIC [id number] 13:33:00* Test Item Value Reference Range Interpretation [...] code = CA) mg/dL 8.5-10.1 HEPATIC FUNCTION [id number] 13:33:00* Test Item Value Reference Range Interpretation [...] DEHYDROGENASE(LDH) (test code = LDH) IUnit/L 84-246 [id number] 13:33:00* Test Item Value Reference Range Interpretation Comments LIPASE (test code = LIP) U/L 73.0-393.0 [id number]-[id number] 13:33:00* Test Item Value Reference Range Interpretation Comments TROPONIN-I (test code = TROPI) ng/mL 0-0.045 STAVVQFT4339-24-08 13:33:00* Test Item Value Reference Range Interpretation Comments FERRITIN (test code = ASHOK) ng/mL 8-388 C REACTIVE [id number] 13:33:00* Test Item Value Reference Range Interpretation Comments C REACTIVE PROTEIN (test code = CRP) <0.29 mg/dL 0-0.3 N CBC W/AUTO [id number] 13:15:00* Test Item Value Reference Range Interpretation [...] K/mm3 0.0-0.1 N CHEST SINGLE (PORTABLE)2020-01-26 23:17:00 [place] [address] Patient Name: VIRA MESSINA MR #: [id number] : 1955 Age/Sex: 64/F Req #: [id number] Adm Physician: Ordered by: MALGORZATA CERVANTES DO Report #: [id number] Location: ER Room/Bed: Procedure: [id number] DX/CHEST SINGLE (PORTABLE) Exam Date: 01/26/20 Exam Time: 2245 REPORT STATUS: Signed Examination: Si ngle AP [...] 11:19 PM Dictated By: TREVOR WHITNEY MD 0707 Transcribed By: SONAM on 01/10 12/30 9113 COPY TO: MALGORZATA CERVANTES DO Blood leukocytes automated count (number/volume)2020-01-26 22:41:00* Test Item Value Reference Range Interpretation Comments White Blood Count (test code = 6690-2) 13.71 4.8-10.8 [facility] CenterBlood erythrocytes automated count (number/volume)2020-01-26 22:41:00* Test Item Value Reference Range Interpretation Comments Red Blood Count (test code = 789-8) 3.65 3.6-5.1 [facility] CenterBlood hemoglobin measurement (moles/volume)2020-01-26 22:41:00* Test Item Value Reference Range Interpretation Comments Hemoglobin (test code = 64332-3) 10.6 12.0-16.0 [facility] CenterAutomated blood hematocrit (volume fraction)2020-01-26 22:41:00* Test Item Value Reference Range Interpretation Comments Hematocrit (test code = 4544-3) 32.6 34.2-44.1 [facility] CenterAutomated erythrocyte mean corpuscular wffoxw9350-58-49 22:41:00* Test Item Value Reference Range Interpretation Comments Mean Corpuscular Volume (test code = 787-2) 89.3 81-99 [facility] CenterAutomated erythrocyte mean corpuscular hemoglobin (mass per erythrocyte)2020-01-26 22:41:00* Test Item Value Reference Range Interpretation Comments Mean Corpuscular Hemoglobin (test code = 785-6) 29.0 28-32 [facility] CenterAutomated erythrocyte mean corpuscular hemoglobin concentration measurement (mass/volume)2020-01-26 22:41:00* Test Item Value Reference Range Interpretation Comments Mean Corpuscular Hemoglobin Concent (test code = 786-4) 32.5 31-35 [facility] CenterRDW IquSf-Ape4561-43-16 22:41:00* Test Item Value Reference Range Interpretation Comments Red Cell Distribution Width (test code = 57478-4) 15.2 11.7 -14.4 [facility] CenterAutomated blood platelet count (count/volume)2020-01-26 22:41:00* Test Item Value Reference Range Interpretation Comments Platelet Count (test code = 777-3) 270 140-360 [facility] CenterAutomated blood segmented neutrophil count as percentage of total apycbtpbec4059-01-51 22:41:00* Test Item Value Reference Range Interpretation Comments Neutrophils (%) (Auto) (test code = 58172-5) 73.6 38.7-80.0 [facility] CenterAutomated blood lymphocyte count as percentage ot total trqghqsbnv9728-44-35 22:41:00* Test Item Value Reference Range Interpretation Comments Lymphocytes (%) (Auto) (test code = 736-9) 18.2 18.0-39.1 [facility] CenterAutomated blood monocyte count as percentage of total vcpfjuewwd1235-37-66 22:41:00* Test Item Value Reference Range Interpretation Comments Monocytes (%) (Auto) (test code = 5905-5) 6.3 4.4-11.3 [facility] CenterAutomated blood eosinophil count as percentage of total bkmixysprf5357-90-07 22:41:00* Test Item Value Reference Range Interpretation Comments Eosinophils (%) (Auto) (test code = 713-8) 1.0 0.0-6.0 [facility] CenterAutomated blood basophil count as percentage of total xmtiuyxcel7023-65-61 22:41:00* Test Item Value Reference Range Interpretation Comments Basophils (%) (Auto) (test code = 706-2) 0.4 0.0-1.0 [facility] CenterFluoroscopic procedure less than one hour fjkiduzw0986-54-91 22:41:00* Test Item Value Reference Range Interpretation Comments IM GRANULOCYTES % (test code = IM GRANULOCYTES %) 0.5 0.0- 1.0 [facility] CenterAutomated blood neutrophil count 2020-01-26 22:41:00* Test Item Value Reference Range Interpretation Comments Neutrophils # (Auto) (test code = 751-8) 10.1 2.1-6.9 [facility] CenterBlood lymphocytes count (number/volume) 2020-01-26 22:41:00* Test Item Value Reference Range Interpretation Comments Lymphocytes # (Auto) (test code = 65475-5) 2.5 1.0-3.2 [facility] CenterBlood monocytes automated count (number/volume)2020-01-26 22:41:00* Test Item Value Reference Range Interpretation Comments Monocytes # (Auto) (test code = 742-7) 0.9 0.2-0.8 [facility] CenterAutomated blood eosinophil count 2020-01-26 22:41:00* Test Item Value Reference Range Interpretation Comments Eosinophils # (Auto) (test code = 711-2) 0.1 0.0-0.4 [facility] CenterAutomated blood basophil count (count/volume)2020-01-26 22:41:00* Test Item Value Reference Range Interpretation Comments Basophils # (Auto) (test code = 704-7) 0.1 0.0-0.1 [facility] CenterFluoroscopic procedure less than one hour mdzfupsi2759-32-81 22:41:00* Test Item Value Reference Range Interpretation Comments Absolute Immature Granulocyte (auto (jasvir t code = Absolute Immature Granulocyte (auto) 0.07 0-0.1 [facility] Texaserum or plasma sodium measurement (moles/volume)2020-01-26 22:41:00* Test Item Value Reference Range Interpretation Comments Sodium Level (test code = 2951-2) 132 136-145 [facility] Texaserum or plasma potassium measurement (moles/volume)2020-01-26 22:41:00* Test Item Value Reference Range Interpretation Comments Potassium Level (test code = 2823-3) 4.0 3.5-5.1 [facility] Texaserum or plasma chloride measurement (moles/volume)2020-01-26 22:41:00* Test Item Value Reference Range Interpretation Comments Chloride Level (test code = 2075-0) 97 98-107 [facility] Texaserum or plasma carbon dioxide, total measurement (moles/volume)2020-01-26 22:41:00* Test Item Value Reference Range Interpretation Comments Carbon Dioxide Level (test code = 2028-9) 27 22-29 [facility] Texaserum or plasma anion tii2643-66-57 22:41:00* Test Item Value Reference Range Interpretation Comments Anion Gap (test code = 91974-4) 12.0 8-16 [facility] Texaserum or plasma urea nitrogen measurement (mass/volume)2020-01-26 22:41:00* Test Item Value Reference Range Interpretation Comments Blood Urea Nitrogen (test code = 3094-0) 8 7-26 [facility] Texaserum or plasma creatinine measurement (mass/volume)2020-01-26 22:41:00* Test Item Value Reference Range Interpretation Comments Creatinine (test code = 2160-0) 0.69 0.57-1.11 [facility] Texaserum or plasma urea nitrogen/creatinine mass psefk8322-98-47 22:41:00* Test Item Value Reference Range Interpretation Comments BUN/Creatinine Ratio (test code = 3097-3) 12 6-25 [facility] CenterEstimated glomerular filtration rate (GFR) dvzteonlziduy3838-41-95 22:41:00* Test Item Value Reference Range Interpretation Comments Estimat Glomerular Filtration Rate (test code = 172464668) > 60 >60 Ranges were taken from the National Kidney Disease Education Program and the [facility] [employer] literature.Reference ranges:60 or greater: Oashwf26-70 ( for 3 consecutive months): Chronic kidney disease 15 or less: Kidney failureSt. David's South [facility] Medical CenterGlucose aopocitldkn6981-86-73 22:41:00* Test Item Value Reference Range Interpretation Comments Glucose Level (test code = TLK9375) 100 74-118 [facility] Texaserum or plasma calcium measurement (mass/volume)2020-01-26 22:41:00* Test Item Value Reference Range Interpretation Comments Calcium Level (test code = 16657-1) 8.8 8.4-10.2 [facility] Texaserum or plasma total bilirubin measurement (mass/volume)2020-01-26 22:41:00* Test Item Value Reference Range Interpretation Comments Total Bilirubin (test code = 1975-2) 0.2 0.2-1.2 [facility] CenterFluoroscopic procedure less than one hour uciorbma6850-79-68 22:41:00* Test Item Value Reference Range Interpretation Comments Aspartate Amino Transf (AST/SGOT) (test code = Aspartate Amino Transf (AST/SGOT)) 17 5-34 [facility] Texaserum or plasma alanine aminotransferase measurement (enzymatic activity/volume)2020-01-26 22:41:00* Test Item Value Reference Range Interpretation Comments Alanine Aminotransferase (ALT/SGPT) (test code = 1742-6) 7 0-55 [facility] Texaserum or plasma protein measurement (mass/volume)2020-01-26 22:41:00* Test Item Value Reference Range Interpretation Comments Total Protein (test code = 2885-2) 7.3 6.5-8.1 [facility] Texaserum or plasma albumin measurement (mass/volume)2020-01-26 22:41:00* Test Item Value Reference Range Interpretation Comments Albumin (test code = 1751-7) 3.5 3.5-5.0 [facility] CenterPlasma globulin measurement (mass/volume) 2020-01-26 22:41:00* Test Item Value Reference Range Interpretation Comments Globulin (test code = 25556-9) 3.8 2.3-3.5 [facility] Texaserum or plasma albumin/globulin mass ymydq7441-31-25 22:41:00* Test Item Value Reference Range Interpretation Comments Albumin/Globulin Ratio (test code = 1759-0) 0.9 0.8-2.0 [facility] Texaserum or plasma alkaline phosphatase measurement (enzymatic activity/volume)2020-01-26 22:41:00* Test Item Value Reference Range Interpretation Comments Alkaline Phosphatase (test code = 6768-6) 81 40-150 [facility]-xDcl6644-47-47 22:41:00* Test Item Value Reference Range Interpretation Comments B-Type Natriuretic Peptide (test code = 14617-1) 14.7 0-100 [facility]-iRps5790-82-67 22:41:00* Test Item Value Reference Range Interpretation Comments B-Type Natriuretic Peptide (test code = 44528-6) 14.7 0-100 [facility] CenterLACTIC AEUK7672-62-70 00:00:00* Test Item Value Reference Range Interpretation Comments LACTIC ACID (test code = LACT) 4.4 mmol/L 0.4-1.9 HH Results called to [id number] by MOLLY 01/14/20 0000Critical results verified and read back by Nurse? Y PATIENT UNDER INVESTIGATION FOR EGBLP41NJKOJ 19 INHOUSE GX9157-86-36 10:34:00* Test Item Value Reference Range Interpretation Comments COVID 19 INHOUSE AG (test code = QMTKO62YFNE) NEGATIVE Is patient requiring admission or transfer? YIndication for rapid COVID-19 testi ng: Mod Clinical SuspicionPATIENT UNDER I NVESTIGATION FOR EUGAM36F-IKPR NATRIURETIC GEBCESO4637-02-63 08:41:00* Test Item Value Reference Range Interpretation Comments B-TYPE NATRIURETIC PEPTIDE (test code = BNP) 92.8 pgram/mL 0-100 N C REACTIVE UVONWGE3065-04-30 07:51:00* Test Item Value Reference Range Interpretation Comments C REACTIVE PROTEIN (test code = CRP) <0.29 mg/dL 0-0.3 N - XR CHEST 1 M5008-20-23 07:44:00 FAX: Ari Moreno [phone] [place]: B St: ADM FAX: Ghulam Saha MD Name: VIRA MESSINA [facility] : 1955 Age/S: 64/F [address] [facility] Unit #: [id number] Loc: [place] [address] Phys: Ghulam Saha MD Acct: [id number] Dis Date: Status: ADM IN PHONE #: [phone] Exam Date: 01/13/2020727 FAX #: [phone] Reason: SHORTNESS OF BREATH EXAMS: CPT CODE: [id number] XR CHEST 1 V 53064 HISTORY: SHORTNESS OF BREATH TECHNIQUE: AP chest x-ray COMPARISON: 11/26/19 FINDINGS: No airspace consolidation or pleural effusion. Normal heart size. Atherosclerotic vascular calcification of the thoracic aorta. Degenerative changes of the spine. IMPRESSION: No radiographic evidence of acute cardiopulmonary process. LOCATION: at 0744 Reported and signed by: Jolene Braun CC: Ari Carmichael; Ghulam Saha MD Technologist: Leatha Lockett(R) Trnscrd Da te/Time/By: 01/13/2020 (0744) : By: AndreeaLDP1 Orig Print D/T: S: 01/12 (0749) PAGE 1 Signed Report LACTIC [id number] 07:42:00* Test Item Value Reference Range Interpretation Comments LACTIC ACID (test code = LACT) 2.1 mmol/L 0.4-1.9 HH Results called to DR SAHA by GIANCARLO 01/13/20 0742Critical results verified and read back by Nurse? Y BASIC METABOLIC WMSJC0500-15-26 07:40:00* Test Item Value Reference Range Interpretation [...] CA) 9.0 mg/dL 8.5-10.1 N HEPATIC FUNCTION HQTEM9232-02-76 07:40:00* Test Item Value Reference Range Interpretation [...] code = LDH) 153 IUnit/L 84-246 N [id number] 07:40:00* Test Item Value Reference Range Interpretation Comments LIPASE (test code = LIP) 22 U/L 73.0-393.0 L TWMCANWP-B7620-55-03 07:40:00* Test Item Value Reference Range Interpretation Comments TROPONIN-I (test code = TROPI) <0.015 ng/mL 0-0.045 N NEGIZGPF7634-30-08 07:40:00* Test Item Value Reference Range Interpretation Comments FERRITIN (test code = ASHOK) 11 ng/mL 8-388 N BASIC METABOLIC UFRKE4891-96-83 07:29:00* Test Item Value Reference Range Interpretation [...] code = CA) mg/dL 8.5-10.1 HEPATIC FUNCTION VYZHP1063-76-21 07:29:00* Test Item Value Reference Range Interpretation [...] DEHYDROGENASE(LDH) (test code = LDH) IUnit/L 84-246 CNEEVT6419-87-86 07:29:00* Test Item Value Reference Range Interpretation Comments LIPASE (test code = LIP) U/L 73.0-393.0 FJRWYLZW-M1933-58-03 07:29:00* Test Item Value Reference Range Interpretation Comments TROPONIN-I (test code = TROPI) ng/mL 0-0.045 PZRLYPAM1745-01-96 07:29:00* Test Item Value Reference Range Interpretation Comments FERRITIN (test code = ASHOK) ng/mL 8-388 CBC W/AUTO MDDP3085-45-77 06:36:00* Test Item Value Reference Range Interpretation [...] = MDIFF) NO CHEST SINGLE (PORTABLE)2019-12-18 17:25:00 [place] [address] Patient Name: VIRA MESSINA MR #: [id number] : 1955 Age/Sex: 64/F Req #: [id number] Adm Physician: Ordered by: NATTY TEE MD Report #: [id number] Location: ER Room/Bed: Procedure: [id number] DX/CHEST SINGLE (PORTABLE) Exam Date: 12/18/19 Exam [...] 5:27 PM Dictated By: WADE MARTINEZ MD 1727 Transcribed By: SONAM on 12/18/191726 COPY TO: NATTY TEE MD Blood leukocytes automated count (number/volume)2019-12-18 16:09:00* Test Item Value Reference Range Interpretation Comments White Blood Count (test code = 6690-2) 6.42 4.8-10.8 [facility] CenterBlood erythrocytes automated count (number/volume)2019-12-18 16:09:00* Test Item Value Reference Range Interpretation Comments Red Blood Count (test code = 789-8) 4.12 3.6-5.1 [facility] CenterBlood hemoglobin measurement (moles/volume)2019-12-18 16:09:00* Test Item Value Reference Range Interpretation Comments Hemoglobin (test code = 39544-8) 11.8 12.0-16.0 [facility] CenterAutomated blood hematocrit (volume fraction)2019-12-18 16:09:00* Test Item Value Reference Range Interpretation Comments Hematocrit (test code = 4544-3) 37.0 34.2-44.1 [facility] CenterAutomated erythrocyte mean corpuscular bctefr6323-94-04 16:09:00* Test Item Value Reference Range Interpretation Comments Mean Corpuscular Volume (test code = 787-2) 89.8 81-99 [facility] CenterAutomated erythrocyte mean corpuscular hemoglobin (mass per erythrocyte)2019-12-18 16:09:00* Test Item Value Reference Range Interpretation Comments Mean Corpuscular Hemoglobin (test code = 785-6) 28.6 28-32 [facility] CenterAutomated erythrocyte mean corpuscular hemoglobin concentration measurement (mass/volume)2019-12-18 16:09:00* Test Item Value Reference Range Interpretation Comments Mean Corpuscular Hemoglobin Concent (test code = 786-4) 31.9 31-35 [facility] CenterRDW KggFt-Eck9811-04-07 16:09:00* Test Item Value Reference Range Interpretation Comments Red Cell Distribution Width (test code = 61972-1) 14.5 11.7 -14.4 [facility] CenterAutomated blood platelet count (count/volume)2019-12-18 16:09:00* Test Item Value Reference Range Interpretation Comments Platelet Count (test code = 777-3) 291 140-360 [facility] CenterAutomated blood segmented neutrophil count as percentage of total hiirrjwyve1955 16:09:00* Test Item Value Reference Range Interpretation Comments Neutrophils (%) (Auto) (test code = 30220-7) 41.7 38.7-80.0 [facility] CenterAutomated blood lymphocyte count as percentage ot total mssotemynr6892-56-36 16:09:00* Test Item Value Reference Range Interpretation Comments Lymphocytes (%) (Auto) (test code = 736-9) 44.5 18.0-39.1 [facility] CenterAutomated blood monocyte count as percentage of total zbfzahbugs2182-86-11 16:09:00* Test Item Value Reference Range Interpretation Comments Monocytes (%) (Auto) (test code = 5905-5) 11.4 4.4-11.3 [facility] CenterAutomated blood eosinophil count as percentage of total psnnnwnrqg0439-56-68 16:09:00* Test Item Value Reference Range Interpretation Comments Eosinophils (%) (Auto) (test code = 713-8) 1.6 0.0-6.0 [facility] CenterAutomated blood basophil count as percentage of total vzecusfkud0353-02-33 16:09:00* Test Item Value Reference Range Interpretation Comments Basophils (%) (Auto) (test code = 706-2) 0.6 0.0-1.0 [facility] CenterFluoroscopic procedure less than one hour muigvwjc0340-68-94 16:09:00* Test Item Value Reference Range Interpretation Comments IM GRANULOCYTES % (test code = IM GRANULOCYTES %) 0.2 0.0- 1.0 [facility] CenterAutomated blood neutrophil count 2019-12-18 16:09:00* Test Item Value Reference Range Interpretation Comments Neutrophils # (Auto) (test code = 751-8) 2.7 2.1-6.9 [facility] CenterBlood lymphocytes count (number/volume) 2019-12-18 16:09:00* Test Item Value Reference Range Interpretation Comments Lymphocytes # (Auto) (test code = 54819-6) 2.9 1.0-3.2 [facility] CenterBlood monocytes automated count (number/volume)2019-12-18 16:09:00* Test Item Value Reference Range Interpretation Comments Monocytes # (Auto) (test code = 742-7) 0.7 0.2-0.8 [facility] CenterAutomated blood eosinophil count 2019-12-18 16:09:00* Test Item Value Reference Range Interpretation Comments Eosinophils # (Auto) (test code = 711-2) 0.1 0.0-0.4 [facility] CenterAutomated blood basophil count (count/volume)2019-12-18 16:09:00* Test Item Value Reference Range Interpretation Comments Basophils # (Auto) (test code = 704-7) 0.0 0.0-0.1 [facility] CenterFluoroscopic procedure less than one hour iqaxuzbr4165-37-06 16:09:00* Test Item Value Reference Range Interpretation Comments Absolute Immature Granulocyte (auto (jasvir t code = Absolute Immature Granulocyte (auto) 0.01 0-0.1 [facility] CenterProthrombin time (PT) in platelet poor plasma by coagulation vxvyv8725-01-93 16:09:00* Test Item Value Reference Range Interpretation Comments Prothrombin Time (test code = 5902-2) 11.4 11.9-14.5 [facility] CenterINR in Platelet poor plasma by Coagulation dcqju8254-37-94 16:09:00* Test Item Value Reference Range Interpretation Comments Prothromb Time International Ratio (test code = 6301-6) 0.79 Oral Anticoagulant Therapy INR Values:1. Low Intensity Therapy 1.5 - 2.02 . Moderate Intensity Therapy 2.0 - 3.03. High Intensity Therapy(1) 2.5 - 3. 54. High Intensity Therapy(2) 3.0 - 4.05. Panic Value INR > 5.0 [facility] CenterActivated partial thromboplastin time (aPTT) in platelet poor plasma by coagulation degkc0863-23-97 16:09:00* Test Item Value Reference Range Interpretation Comments Activated Partial Thromboplast Time (test code = 03625-4) 32.4 23.8-35.5 [facility] Texas[facility]um or plasma sodium measurement (moles/volume)2019-12-18 16:09:00* Test Item Value Reference Range Interpretation Comments Sodium Level (test code = 2951-2) 137 136-145 [facility] Texaserum or plasma potassium measurement (moles/volume)2019-12-18 16:09:00* Test Item Value Reference Range Interpretation Comments Potassium Level (test code = 2823-3) 4.3 3.5-5.1 [facility] Texas[facility]um or plasma chloride measurement (moles/volume)2019-12-18 16:09:00* Test Item Value Reference Range Interpretation Comments Chloride Level (test code = 2075-0) 105 98-107 [facility] Texaserum or plasma carbon dioxide, total measurement (moles/volume)2019-12-18 16:09:00* Test Item Value Reference Range Interpretation Comments Carbon Dioxide Level (test code = 2028-9) 25 22-29 [facility] Texaserum or plasma anion wjl2436-90-04 16:09:00* Test Item Value Reference Range Interpretation Comments Anion Gap (test code = 48906-9) 11.3 8-16 [facility] or plasma urea nitrogen measurement (mass/volume)2019-12-18 16:09:00* Test Item Value Reference Range Interpretation Comments Blood Urea Nitrogen (test code = 3094-0) 7 7-26 [facility] Texaserum or plasma creatinine measurement (mass/volume)2019-12-18 16:09:00* Test Item Value Reference Range Interpretation Comments Creatinine (test code = 2160-0) 0.69 0.57-1.11 [facility] Texaserum or plasma urea nitrogen/creatinine mass xqssm3991-62-34 16:09:00* Test Item Value Reference Range Interpretation Comments BUN/Creatinine Ratio (test code = 3097-3) 10 6-25 [facility] CenterEstimated glomerular filtration rate (GFR) cbtcruqiqchyp5571-52-61 16:09:00* Test Item Value Reference Range Interpretation Comments Estimat Glomerular Filtration Rate (test code = 847647309) > 60 >60 Ranges were taken from the National Kidney Disease Education Program and the [facility] literature.Reference ranges:60 or greater: Jodiqb40-14 ( for 3 consecutive months): Chronic kidney disease 15 or less: Kidney failureSt. [facility] CenterGlucose zwyskajhqfi4164-89-56 16:09:00* Test Item Value Reference Range Interpretation Comments Glucose Level (test code = IYP6010) 100 74-118 [facility]erum or plasma calcium measurement (mass/volume)2019-12-18 16:09:00* Test Item Value Reference Range Interpretation Comments Calcium Level (test code = 58508-8) 9.2 8.4-10.2 [facility] Texaserum or plasma total bilirubin measurement (mass/volume)2019-12-18 16:09:00* Test Item Value Reference Range Interpretation Comments Total Bilirubin (test code = 1975-2) 0.2 0.2-1.2 [facility] CenterFluoroscopic procedure less than one hour zzadpymt2551-49-27 16:09:00* Test Item Value Reference Range Interpretation Comments Aspartate Amino Transf (AST/SGOT) (test code = Aspartate Amino Transf (AST/SGOT)) 16 5-34 [facility] or plasma alanine aminotransferase measurement (enzymatic activity/volume)2019-12-18 16:09:00* Test Item Value Reference Range Interpretation Comments Alanine Aminotransferase (ALT/SGPT) (test code = 1742-6) < 6 0-55 [facility] Texaserum or plasma protein measurement (mass/volume)2019-12-18 16:09:00* Test Item Value Reference Range Interpretation Comments Total Protein (test code = 2885-2) 7.1 6.5-8.1 [facility] Texaserum or plasma albumin measurement (mass/volume)2019-12-18 16:09:00* Test Item Value Reference Range Interpretation Comments Albumin (test code = 1751-7) 3.6 3.5-5.0 [facility] CenterPlasma globulin measurement (mass/volume) 2019-12-18 16:09:00* Test Item Value Reference Range Interpretation Comments Globulin (test code = 17851-3) 3.5 2.3-3.5 [facility] Texaserum or plasma albumin/globulin mass qivre3116-82-35 16:09:00* Test Item Value Reference Range Interpretation Comments Albumin/Globulin Ratio (test code = 1759-0) 1.0 0.8-2.0 [facility]er[facility] or plasma alkaline phosphatase measurement (enzymatic activity/volume)2019-12-18 16:09:00* Test Item Value Reference Range Interpretation Comments Alkaline Phosphatase (test code = 6768-6) 88 40-150 [facility] CenterBNP Tes-xUjg2698-17-07 16:09:00* Test Item Value Reference Range Interpretation Comments B-Type Natriuretic Peptide (test code = 53983-2) < 10.0 0-100 [facility] Texaserum or plasma creatine kinase measurement (enzymatic activity/volume)2019-12-18 16:09:00* Test Item Value Reference Range Interpretation Comments Creatine Kinase (test code = 2157-6) 46 29-168 [facility] Texaserum or plasma creatine kinase MB measurement (mass/volume)2019-12-18 16:09:00* Test Item Value Reference Range Interpretation Comments Creatine Kinase MB (test code = 95607-2) 0.70 0-5.0 [facility] CenterTroponin I measurement by highly sensitive enzyme xknzgyspqmq3401-26-71 16:09:00* Test Item Value Reference Range Interpretation Comments Troponin I (test code = 42268-6) < 0.001 0-0.300 [facility] CenterProthrombin time (PT) in platelet poor plasma by coagulation pfziy7702-68-91 16:09:00* Test Item Value Reference Range Interpretation Comments Prothrombin Time (test code = 5902-2) 11.4 11.9-14.5 [facility] CenterINR in Platelet poor plasma by Coagulation bbvgv0318-98-75 16:09:00* Test Item Value Reference Range Interpretation Comments Prothromb Time International Ratio (test code = 6301-6) 0.79 Oral Anticoagulant Therapy INR Values:1. Low Intensity Therapy 1.5 - 2.02 . Moderate Intensity Therapy 2.0 - 3.03. High Intensity Therapy(1) 2.5 - 3. 54. High Intensity Therapy(2) 3.0 - 4.05. Panic Value INR > 5.0 [facility] CenterActivated partial thromboplastin time (aPTT) in platelet poor plasma by coagulation dpzjl1010-19-67 16:09:00* Test Item Value Reference Range Interpretation Comments Activated Partial Thromboplast Time (test code = 34303-9) 32.4 23.8-35.5 [facility]erum or plasma creatine kinase measurement (enzymatic activity/volume)2019-12-18 16:09:00* Test Item Value Reference Range Interpretation Comments Creatine Kinase (test code = 2157-6) 46 29-168 [facility] Texaserum or plasma creatine kinase MB measurement (mass/volume)2019-12-18 16:09:00* Test Item Value Reference Range Interpretation Comments Creatine Kinase MB (test code = 12073-6) 0.70 0-5.0 [facility] CenterTroponin I measurement by highly sensitive enzyme elgclvhlwel0872-29-82 16:09:00* Test Item Value Reference Range Interpretation Comments Troponin I (test code = 94533-3) < 0.001 0-0.300 [facility] CenterProthrombin time (PT) in platelet poor plasma by coagulation jkkds1250-47-96 16:09:00* Test Item Value Reference Range Interpretation Comments Prothrombin Time (test code = 5902-2) 11.4 11.9-14.5 [facility] CenterINR in Platelet poor plasma by Coagulation fkict2057-47-10 16:09:00* Test Item Value Reference Range Interpretation Comments Prothromb Time International Ratio (test code = 6301-6) 0.79 Oral Anticoagulant Therapy INR Values:1. Low Intensity Therapy 1.5 - 2.02 . Moderate Intensity Therapy 2.0 - 3.03. High Intensity Therapy(1) 2.5 - 3. 54. High Intensity Therapy(2) 3.0 - 4.05. Panic Value INR > 5.0 [facility] CenterActivated partial thromboplastin time (aPTT) in platelet poor plasma by coagulation qvgzk8980-12-57 16:09:00* Test Item Value Reference Range Interpretation Comments Activated Partial Thromboplast Time (test code = 62937-3) 32.4 23.8-35.5 [facility] CenterProthrombin time (PT) in platelet poor plasma by coagulation anprp0498-89-85 16:09:00* Test Item Value Reference Range Interpretation Comments Prothrombin Time (test code = 5902-2) 11.4 11.9-14.5 [facility] CenterINR in Platelet poor plasma by Coagulation zcglt1208-91-89 16:09:00* Test Item Value Reference Range Interpretation Comments Prothromb Time International Ratio (test code = 6301-6) 0.79 Oral Anticoagulant Therapy INR Values:1. Low Intensity Therapy 1.5 - 2.02 . Moderate Intensity Therapy 2.0 - 3.03. High Intensity Therapy(1) 2.5 - 3. 54. High Intensity Therapy(2) 3.0 - 4.05. Panic Value INR > 5.0 [facility] CenterActivated partial thromboplastin time (aPTT) in platelet poor plasma by coagulation vczhu9843-07-03 16:09:00* Test Item Value Reference Range Interpretation Comments Activated Partial Thromboplast Time (test code = 84775-3) 32.4 23.8-35.5 [facility] CenterProthrombin time (PT) in platelet poor plasma by coagulation aeuyt4055-74-05 16:09:00* Test Item Value Reference Range Interpretation Comments Prothrombin Time (test code = 5902-2) 11.4 11.9-14.5 [facility] CenterINR in Platelet poor plasma by Coagulation ctaum1272-41-07 16:09:00* Test Item Value Reference Range Interpretation Comments Prothromb Time International Ratio (test code = 6301-6) 0.79 Oral Anticoagulant Therapy INR Values:1. Low Intensity Therapy 1.5 - 2.02 . Moderate Intensity Therapy 2.0 - 3.03. High Intensity Therapy(1) 2.5 - 3. 54. High Intensity Therapy(2) 3.0 - 4.05. Panic Value INR > 5.0 [facility] CenterActivated partial thromboplastin time (aPTT) in platelet poor plasma by coagulation rftub6217-55-20 16:09:00* Test Item Value Reference Range Interpretation Comments Activated Partial Thromboplast Time (test code = 25337-5) 32.4 23.8-35.5 [facility] CenterMAGNESIUM2020-05-16 22:06:00* Test Item Value Reference Range Interpretation Comments MAGNESIUM (test code = MAG) 1.8 mg/dL 1.8-2.4 N B-TYPE NATRIURETIC [id number] 20:39:00* Test Item Value Reference Range Interpretation Comments B-TYPE NATRIURETIC PEPTIDE (test code = BNP) 45.41 pgram/mL 0-100 N BASIC METABOLIC [id number] 20:27:00* Test Item Value Reference Range Interpretation [...] code = CA) 9.0 mg/dL 8.5-10.1 N [id number] 20:27:00* Test Item Value Reference Range Interpretation Comments TROPONIN-I (test code = TROPI) <0.015 ng/mL 0-0.045 N [id number] 20:24:00* Test Item Value Reference Range Interpretation Comments D-DIMER (test code = DDIMER) 657.00 ng/mLFEU 0-500 HH Results [place] [address] by CHARLIE 11/26/19ritical results verified and read back by Nurse? [...] skin infections -Liver cirrhosis - BASIC METABOLIC KVFFN5905-04-07 20:13:00* Test Item Value Reference Range Interpretation [...] CALCIUM (test code = CA) mg/dL 8.5-10.1 [id number] 20:13:00* Test Item Value Reference Range Interpretation Comments TROPONIN-I (test code = TROPI) ng/mL 0-0.045 CBC W/O [id number] 20:06:00* Test Item Value Reference Range Interpretation [...] MPV) 9.2 fL 6.7-11.0 N CBC W/O [id number] 20:00:00* Test Item Value Reference Range Interpretation [...] = MPV) fL 6.7-11.0 Coronavirus 2019 nCoV Latvumy0519-01-74 19:16:00* Test Item Value Reference Range Interpretation Comments Coronavirus 2019 nCoV Bedside (test code = [id number]) Negative Is patient requiring admission or transfer? YIndication for rapid COVID-19 testi ng: Mod Clinical Suspicion- XR CHEST 1 V 2019-11-26 18:21:00 FAX: Ari Morneo DO [phone] [place]: B St: PRE FAX: Junior Corea MD [phone] Name: VIRA MESSINA [facility] : 1955 Age/S: 64/F [address] [facility] Unit #: [id number] Loc: [place] [address] Phys: Junior Corea MD Acct: [id number] Dis Date: Status: PRE ER PHONE #: [phone] Exam Date: 11/26/20191812 FAX #: [phone] Reason: Shortness of Breath EXAMS: CPT CODE: [id number] XR CHEST 1 V 32571 REASON FOR EXAM: Shortness of Breath Exam [...] IMPRESSION: No acute cardiopulm onary process. Location: [facility] at 182 Reported and si gned by: Rafita Archuleta MD CC: Ari Carmichael; Junior Corea MD Technologist: DEBBIE VEGA, RT(R) Trnscrd Date/Time/By: 11/26/2019 (1820) : By: [email or web address] Orig Print D/T: S: 11/26/2019 (1823) PAGE 1 Signed Report BASIC METABOLIC [id number] 14:04:00* Test Item Value Reference Range Interpretation [...] mg/dL 8.5-10.1 N [V.LAB.SP3 07/03/19 0536]CBC W/AUTO MMPI9665-77-53 12:59:00* Test Item Value Reference Range Interpretation [...] K/mm3 0.0-0.1 N [V.LAB.SP3 07/03/19 0536]B-TYPE NATRIURETIC YCYRXBJ8119-55-29 14:39:00* Test Item Value Reference Range Interpretation Comments B-TYPE NATRIURETIC PEPTIDE (test code = BNP) 144.74 pgram/mL 0-100 H BASIC METABOLIC [id number] 14:14:00* Test Item Value Reference Range Interpretation [...] code = CA) 8.9 mg/dL 8.5-10.1 N [id number]-G9741-00-21 14:14:00* Test Item Value Reference Range Interpretation Comments TROPONIN-I (test code = TROPI) <0.015 ng/mL 0-0.045 N BASIC METABOLIC [id number] 14:04:00* Test Item Value Reference Range Interpretation [...] code = CA) 8.9 mg/dL 8.5-10.1 N [id number] 14:04:00* Test Item Value Reference Range Interpretation Comments TROPONIN-I (test code = TROPI) ng/mL 0-0.045 BASIC METABOLIC [id number] 14:03:00* Test Item Value Reference Range Interpretation [...] CALCIUM (test code = CA) mg/dL 8.5-10.1 [id number]-[id number] 14:03:00* Test Item Value Reference Range Interpretation Comments TROPONIN-I (test code = TROPI) ng/mL 0-0.045 CBC W/O [id number] 14:00:00* Test Item Value Reference Range Interpretation [...] MPV) 9.2 fL 6.7-11.0 N VENOUS BLOOD [id number] 13:32:00* Test Item Value Reference Range Interpretation [...] % 0.0-1.50 N - XR CHEST 1 [id number] 13:11:00 FAX: Ari Moreno [phone] [place]: St: [facility] FAX: Ghulam Saha MD Name: VIRA MESSINA [facility] : 1955 Age/S: 64/F [address] [facility] Unit #: [id number] Loc: [place] [address] Phys: Ghulam Saha MD Acct: [id number] Dis Date: Status: REG ER PHONE #: [phone] Exam Date: 07/02/2019 1305 FAX #: [phone] Reason: Shortness of Breath EXAMS: CPT CODE: [id number] XR CHEST 1 V 89912 REASON FOR EXAM: Shortness of Breath EXAM [...] Technologist: GONZALES AC RT(R) Trnscrd Date/Time/By: 07/02/2019 (1183) : By: KasiaL Orig Print D/T: S: 07/02/2019 (4941) PAGE 1 Signed Report BASIC METABOLIC [id number] 02:56:00* Test Item Value Reference Range Interpretation [...] CA) 8.6 mg/dL 8.5-10.1 N BASIC METABOLIC [id number] 02:50:00* Test Item Value Reference Range Interpretation [...] code = CA) mg/dL 8.5-10.1 CBC W/AUTO [id number] 02:35:00* Test Item Value Reference Range Interpretation [...] code = NRBC#) 0.00 K/mm3 0.0-0.1 N [id number] 20:01:00* Test Item Value Reference Range Interpretation Comments GLUBED (test code = GLUBED) 161 mg/dL 74-106 H Performed by certified nuclear supervising operator at [facility] CREATINE KINASE (CK)2019-06-30 12:22:00* Test Item Value Reference Range Interpretation Comments CREATINE KINASE (CK) (test code = CK) 39 IUnit/L 26-208 N LACTIC DEHYDROGENASE(LDH)2019-06-30 12:22:00* Test Item Value Reference Range Interpretation Comments LACTIC DEHYDROGENASE(LDH) (test code = LDH) 124 IUnit/L 84-246 N FOLIC [id number] 12:22:00* Test Item Value Reference Range Interpretation Comments FOLIC ACID (test code = FOL) 8.0 ng/mL 3.10-17.50 N [id number] 12:22:00* Test Item Value Reference Range Interpretation Comments FERRITIN (test code = ASHOK) 40 ng/mL 8-388 N [id number] 12:14:00* Test Item Value Reference Range Interpretation Comments GLYCOSYLATED HEMOGLOBIN (HA1C) (test code = GLYHGB) 5.5 % HbA1 SUGGESTED DIAGNOSIS: HbA1C (%) Diabetic >6.4Prediabetes 5.7 - 6.4Normal <5.7 ESTIMATED AVERAGE GLUCOSE (test code = EAG) 111 MG/DL B-TYPE NATRIURETIC [id number] 12:12:00* Test Item Value Reference Range Interpretation Comments B-TYPE NATRIURETIC PEPTIDE (test code = BNP) 104.46 pgram/mL 0-100 H C REACTIVE [id number] 12:07:00* Test Item Value Reference Range Interpretation Comments C REACTIVE PROTEIN (test code = CRP) 0.98 mg/dL 0-0.3 H LACTIC [id number] 20:36:00* Test Item Value Reference Range Interpretation Comments LACTIC ACID (test code = LACT) 1.4 mmol/L 0.4-1.9 N BASIC METABOLIC [id number] 19:52:00* Test Item Value Reference Range Interpretation [...] code = CA) 8.9 mg/dL 8.5-10.1 N [id number] 19:52:00* Test Item Value Reference Range Interpretation Comments TROPONIN-I (test code = TROPI) <0.015 ng/mL 0-0.045 N BASIC METABOLIC [id number] 19:47:00* Test Item Value Reference Range Interpretation [...] code = CA) 8.9 mg/dL 8.5-10.1 N [id number] 19:47:00* Test Item Value Reference Range Interpretation Comments TROPONIN-I (test code = TROPI) ng/mL 0-0.045 CBC W/O [id number] 19:46:00* Test Item Value Reference Range Interpretation [...] MPV) 8.9 fL 6.7-11.0 N CBC W/O [id number] 19:42:00* Test Item Value Reference Range Interpretation [...] MPV) fL 6.7-11.0 - XR CHEST 1 [id number] 19:26:00 FAX: Surjit Curtis [phone] [place]: B St: [facility] FAX: Ari Moreno [phone] Name: VIRA MESSINA [facility] : 1955 Age/S: 64/F [address] [facility] Unit #: [id number] Loc: [place] [address] Phys: Surjit Finn MD Acct: [id number] Dis Date: Status: REG ER PHONE #: [phone] Exam Date: 06/29/2019 184 FAX #: [phone] Reason: Shortness of Breath EXAMS: CPT CODE: [id number] XR CHEST 1 V 79447 EXAM: Chest x-ray, one view; INFORMATION: Shortness of breath; IMPRESSION: 1. No evidence of active cardiopulmonary disease. 2. No significant change compared with a study from May 12, 2019. Aortic calcifications. Location code: [facility] at 1926 Reported and signed by: Adam Beckett M.D. CC: Surjit Finn MD; Ari Carmichael Technologist: MIKAYLA RATLIFF RT (R); ... Trnscrd Date/Time/By: 06/29/2019 (1925) : By: [email or web address] Orig Print D/T: S: 06/29/2019 (1928) PAGE 1 Signed Report DRUGS OF ABUSE SCREEN [id number] 20:48:00* Test Item Value Reference Range Interpretation [...] NEGATIVE <300 ng/mL 1732]DRUGS OF ABUSE SCREEN [id number] 20:06:00* Test Item Value Reference Range Interpretation [...] (test code = [place]) NEGATIVE <300 ng/mL 1732][id number] 21:14:00* Test Item Value Reference Range Interpretation Comments GLUBED (test code = GLUBED) 96 mg/dL 74-106 N Performed by certified nuclear supervising operator at [facility] [id number] 17:19:00* Test Item Value Reference Range Interpretation [...] ANADDITIONAL CHARGE TO THE PATIENT. B-TYPE NATRIURETIC [id number] 16:06:00* Test Item Value Reference Range Interpretation Comments B-TYPE NATRIURETIC PEPTIDE (test code = BNP) 28.85 pgram/mL 0-100 N BASIC METABOLIC [id number] 16:01:00* Test Item Value Reference Range Interpretation [...] code = CA) 9.8 mg/dL 8.5-10.1 N [id number] 16:01:00* Test Item Value Reference Range Interpretation Comments TROPONIN-I (test code = TROPI) <0.015 ng/mL 0-0.045 N LACTIC [id number] 15:51:00* Test Item Value Reference Range Interpretation Comments LACTIC ACID (test code = LACT) 0.8 mmol/L 0.4-1.9 N BASIC METABOLIC [id number] 15:47:00* Test Item Value Reference Range Interpretation [...] CALCIUM (test code = CA) mg/dL 8.5-10.1 [id number] 15:47:00* Test Item Value Reference Range Interpretation Comments TROPONIN-I (test code = TROPI) ng/mL 0-0.045 CBC W/O [id number] 15:37:00* Test Item Value Reference Range Interpretation [...] MPV) 9.0 fL 6.7-11.0 N CBC W/O [id number] 15:36:00* Test Item Value Reference Range Interpretation [...] MPV) fL 6.7-11.0 - XR CHEST 1 [id number] 14:22:00 FAX: Roshan Petty DO [place]: St: REG Name: VIRA PUGH [facility] : [birth year] Age/S: 64[facility] [address] [facility] [id number] Loc: [place] [address] Phys: Roshan Petty DO Acct: [id number] Dis Date: Status: REG ER PHONE #: [phone] Exam Date: 05/12/2019 1350 FAX #: [phone] Reason: Shortness of Breath EXAMS: CPT CODE: [id number] XR CHEST 1 V 95255 REASON FOR EXAM: Shortness of Breath Exam [...] appears similar to the previous exam. Location: [facility] at 1422 Reported and signed by: Rafita Archuleta MD CC: Roshan Petty DO Technologist: RT LAKSHMI(Shane) Trnidnathan Date/Time/By: 05/12/20 19 (4695) : By: [email or web address] Orig Print D/T: S: 05/12/2019 (0869) PAGE 1 Signed Report CBC W/AUTO [id number] 04:59:00* Test Item Value Reference Range Interpretation [...] = MDIFF) NO, ONLY SCAN NEEDED DIFFERENTIAL [id number] 04:59:00* Test Item Value Reference Range Interpretation Comments STAIN ACCEPTABILITY (test code = STN ACCEPTABLE) STAIN ACCEPTABLE ANISOCYTOSIS (test code = ANISO) 1+ MACROCYTOSIS (test code = MACR) 1+ PLATELET ESTIMATE (test code = PLTEST) ADEQUATE PLATELET MORPHOLOGY (test code = PLTMORPH) NORMAL [id number] 04:15:00* Test Item Value Reference Range Interpretation Comments TROPONIN-I (test code = TROPI) <0.015 ng/mL 0-0.045 N BASIC METABOLIC [id number] 04:13:00* Test Item Value Reference Range Interpretation [...] CA) 9.2 mg/dL 8.5-10.1 N CBC W/AUTO [id number] 03:51:00* Test Item Value Reference Range Interpretation [...] = MDIFF) NO, ONLY SCAN NEEDED DIFFERENTIAL [id number] 03:51:00* Test Item Value Reference Range Interpretation Comments STAIN ACCEPTABILITY (test code = STN ACCEPTABLE) MORPHOLOGY COMMENT (test code = MOC) PLATELET ESTIMATE (test code = PLTEST) PLATELET MORPHOLOGY (test code = PLTMORPH) CBC W/AUTO [id number] 03:49:00* Test Item Value Reference Range Interpretation [...] = MDIFF) NO, ONLY SCAN NEEDED DIFFERENTIAL [id number] 03:49:00* Test Item Value Reference Range Interpretation Comments STAIN ACCEPTABILITY (test code = STN ACCEPTABLE) CABOT RINGS (test code = CAB) MORPHOLOGY COMMENT (test code = MOC) PLATELET ESTIMATE (test code = PLTEST) PLATELET MORPHOLOGY (test code = PLTMORPH) CBC W/AUTO [id number] 03:49:00* Test Item Value Reference Range Interpretation [...] = MDIFF) NO, ONLY SCAN NEEDED DIFFERENTIAL [id number] 03:49:00* Test Item Value Reference Range Interpretation Comments STAIN ACCEPTABILITY (test code = STN ACCEPTABLE) MORPHOLOGY COMMENT (test code = MOC) PLATELET ESTIMATE (test code = PLTEST) PLATELET MORPHOLOGY (test code = PLTMORPH) CBC W/AUTO [id number] 03:49:00* Test Item Value Reference Range Interpretation [...] = MDIFF) NO, ONLY SCAN NEEDED DIFFERENTIAL [id number] 03:49:00* Test Item Value Reference Range Interpretation Comments STAIN ACCEPTABILITY (test code = STN ACCEPTABLE) CABOT RINGS (test code = CAB) MORPHOLOGY COMMENT (test code = MOC) PLATELET ESTIMATE (test code = PLTEST) PLATELET MORPHOLOGY (test code = PLTMORPH) THYROID STIMULATING [id number] 22:36:00* Test Item Value Reference Range Interpretation Comments THYROID STIMULATING HORMONE (test code = TSH) 0.141 uIU/mL 0.36-3.7 4 L TSH REFERENCE RANGES: EUTHYROID: 0.35 - 4.3 mIU/mL HYPO : > 5.5 mIU/mL HYPER : < 0.35 mIU/mL [id number] 22:24:00* Test Item Value Reference Range Interpretation Comments TROPONIN-I (test code = TROPI) <0.015 ng/mL 0-0.045 N COMMENTS TO ARMORED CAR MESSENGER: COLLECT 3 HOURS AFTER PREVIOUS SAMPLEB-TYPE NATRIURETIC [id number] 16:33:00* Test Item Value Reference Range Interpretation Comments B-TYPE NATRIURETIC PEPTIDE (test code = BNP) 18.63 pgram/mL 0-100 N BASIC METABOLIC [id number] 16:21:00* Test Item Value Reference Range Interpretation [...] code = CA) 9.6 mg/dL 8.5-10.1 N WTGCTS4144-32-61 16:21:00* Test Item Value Reference Range Interpretation Comments LIPASE (test code = LIP) 13 U/L 73.0-393.0 L [id number]-[id number] 16:21:00* Test Item Value Reference Range Interpretation Comments TROPONIN-I (test code = TROPI) <0.015 ng/mL 0-0.045 N BASIC METABOLIC [id number] 16:13:00* Test Item Value Reference Range Interpretation [...] CALCIUM (test code = CA) mg/dL 8.5-10.1 FCLTQS3145-82-74 16:13:00* Test Item Value Reference Range Interpretation Comments LIPASE (test code = LIP) U/L 73.0-393.0 [id number]-[id number] 16:13:00* Test Item Value Reference Range Interpretation Comments TROPONIN-I (test code = TROPI) ng/mL 0-0.045 CBC W/O [id number] 16:09:00* Test Item Value Reference Range Interpretation [...] MPV) 9.3 fL 6.7-11.0 N VENOUS BLOOD [id number] 15:54:00* Test Item Value Reference Range Interpretation Comments VENOUS BLOOD GAS PH (test code = PHV) 7.40 7.30-7.40 N VENOUS BLOOD GAS PCO2 (test code = PCO2V) 22.8 mm Hg 39.0-51.0 LL Results called to and read back by [employer]uresm[employer] 15:53 - 03/31/2019; by [employer] rt VENOUS BLOOD GAS PO2 (test code = PO2V) 45.7 mm Hg 30.0-50.0 N VBG HCO3 (test code = HCO3V) 13.9 mmol/L 17.0-30.0 L VBG BASE EXCESS (test code = QUIQUE) -9.6 mmol/L -5.0-5.0 LL Results called to and read back by [employer]uresmaged 15:53 03/31/2019; by [employer] rt VENOUS BLOOD GAS O2 SAT. [...] lotus 15:53 - 03/31/2019; by garcia weaver METHEMOGLOBIN (test code = METHGB) 0.5 % 0.0-1.50 N - XR CHEST 1 [id number] 15:41:00 FAX: Ghulam Saha MD [place]: St: REG Name: VIRA PUGH [facility] : [birth year] 55 Age/S: 63/F [address] [facility] Unit #: [id number] Loc: [place] [address] Phys: Ghulam Saha MD Acct: [id number] Dis Date: Status: REG ER PHONE #: [phone] Exam Date: 03/31/2019 1540 FAX #: [phone] Reason: Shortness of Breath EXAMS: CPT CODE: [id number] XR CHEST 1 V 67580 REASON FOR EXAM: Shortness of Breath EXAM ORDER DATE: 03/31/2019 3:06 PM Ordering Ian: Ghulam Saha MD PROCEDURE: - XR CHEST [...] Jj Russell M.D. CC: Ghulam Saha MD [facility] hnologist: Milena De La Cruz, RT(R); ESTEFANI MCGHEE RT(R) Trnscrd Date/T floyd/By: 03/31/2019 (1541) : By: Colleen Orig Print D/T: S: 9 (9691) PAGE [address] CHEST [id number] 21:24:00 [place] [address] Patient Name: VIRA MESSINA MR #: [id number] : 1955 Age/Sex: 63/F Req #: [id number] Adm Physician: Ordered by: EMILIA MCGUIRE MD Report #: [id number] Location: ER Room/Bed: Procedure: [id number] CT /CT CHEST WO Exam Date: 11/10/18 [...] PM Dictated By: TANNER BUCKNER MD [address] scribed By: SONAM on 11/10/182130 COPY TO: EMILIA MCGUIRE MD CHEST SINGLE (PORTABLE)2018-11-10 19:50:00 [place] [address] Patient Name: VIRA MESSINA MR #: [id number] : 1955 Age/Sex: 63/F Req #: [id number] Adm Physician: Ordered by: CAMMIE MEJIA MD Report #: [id number] Location: ER Room/Bed: Procedure: [id number] DX /CHEST SINGLE (PORTABLE) Exam Date: Exam [...] 11/10/181953 COPY TO: CAMMIE MEJIA MD Sodium Dptjg4262-51-89 07:00:00* Test Item Value Reference Range Interpretation Comments Sodium Level (test code = 2951-2) 139 136-145 [facility] CenterPotassium Bwxae4451-10-31 07:00:00* Test Item Value Reference Range Interpretation Comments Potassium Level (test code = 2823-3) 4.0 3.5-5.1 [facility] CenterChloride Sawuv9527-02-78 07:00:00* Test Item Value Reference Range Interpretation Comments Chloride Level (test code = 2075-0) 103 98-107 [facility] CenterCarbon Dioxide Ltenn5965-53-83 07:00:00* Test Item Value Reference Range Interpretation Comments Carbon Dioxide Level (test code = 2028-9) 26 22-29 [facility] CenterAnion Qgq6016-04-01 07:00:00* Test Item Value Reference Range Interpretation Comments Anion Gap (test code = 89867-7) 14.0 8-16 [facility] CenterBlood Urea Lafjfsci3049-07-81 07:00:00* Test Item Value Reference Range Interpretation Comments Blood Urea Nitrogen (test code = 3094-0) 12 7-26 [facility] CenterCreatinine2018-11-30 07:00:00* Test Item Value Reference Range Interpretation Comments Creatinine (test code = 2160-0) 0.61 0.57-1.11 [facility] CenterBUN/Creatinine Dousv5061-09-81 07:00:00* Test Item Value Reference Range Interpretation Comments BUN/Creatinine Ratio (test code = 3097-3) 20 6-25 [facility] CenterEstimat Glomerular Filtration Rate 2018-06-11 07:00:00* Test Item Value Reference Range Interpretation Comments Estimat Glomerular Filtration Rate (test code = 410926078) > 60 >60 Ranges were taken from the National Kidney Disease Education Program and the [facility] literature.Reference ranges:60 or greater: Gxumdn57-21 ( for 3 consecutive months): Chronic kidney disease 15 or less: Kidney failureSt. David's [facility] Medical CenterGlucose Whwmp8329-04-23 07:00:00* Test Item Value Reference Range Interpretation Comments Glucose Level (test code = MPL6917) 66 74-[address] [facility] CenterCalcium Yrnlr9687-67-76 07:00:00* Test Item Value Reference Range Interpretation Comments Calcium Level (test code = 42463-7) 8.8 8.4-10.2 [facility] CenterMagnesium Hpute9626-92-95 07:00:00* Test Item Value Reference Range Interpretation Comments Magnesium Level (test code = 76049-1) 2.2 1.3-2.1 [facility] Texasodium Noxfi3977-76-58 07:00:00* Test Item Value Reference Range Interpretation Comments Sodium Level (test code = 2951-2) 139 136-145 [facility] CenterPotassium Knjyq2433-25-11 07:00:00* Test Item Value Reference Range Interpretation Comments Potassium Level (test code = 2823-3) 4.0 3.5-5.1 [facility] CenterChloride Kfgkq7830-53-77 07:00:00* Test Item Value Reference Range Interpretation Comments Chloride Level (test code = 2075-0) 103 98-107 [facility] CenterCarbon Dioxide Wkagk4067-01-17 07:00:00* Test Item Value Reference Range Interpretation Comments Carbon Dioxide Level (test code = 2028-9) 26 - [facility] CenterAnion Ozi8297-66-23 07:00:00* Test Item Value Reference Range Interpretation Comments Anion Gap (test code = 70114-2) 14.0 8-16 [facility] CenterBlood Urea Byuzlnyb6891-37-98 07:00:00* Test Item Value Reference Range Interpretation Comments Blood Urea Nitrogen (test code = 3094-0) 12 7-26 [facility] CenterCreatinine2018-11-30 07:00:00* Test Item Value Reference Range Interpretation Comments Creatinine (test code = 2160-0) 0.61 0.57-1.11 [facility] CenterBUN/Creatinine Dxiog1717-51-01 07:00:00* Test Item Value Reference Range Interpretation Comments BUN/Creatinine Ratio (test code = 3097-3) 20 6- [facility] CenterEstimat Glomerular Filtration Rate 2018-06-11 07:00:00* Test Item Value Reference Range Interpretation Comments Estimat Glomerular Filtration Rate (test code = 875326532) > 60 >60 Ranges were taken from the National Kidney Disease Education Program and the [facility] literature.Reference ranges:60 or greater: Fkejvs06-22 ( for 3 consecutive months): Chronic kidney disease 15 or less: Kidney failureSt. [facility]'s [facility] Medical CenterGlucose Zaucy2769-56-78 07:00:00* Test Item Value Reference Range Interpretation Comments Glucose Level (test code = FGW6067) 66 74-[address] [facility] CenterCalcium Dushj8635-80-45 07:00:00* Test Item Value Reference Range Interpretation Comments Calcium Level (test code = 09845-4) 8.8 8.4-10.2 [facility] CenterMagnesium Kuxsn3922-22-09 07:00:00* Test Item Value Reference Range Interpretation Comments Magnesium Level (test code = 62980-0) 2.2 1.3-2.[address] [facility] CenterWhite Blood Vqtzk3174-68-13 06:57:00* Test Item Value Reference Range Interpretation Comments White Blood Count (test code = 6690-2) 6.16 4.8-10.8 [facility] CenterRed Blood Qispx9855-62-09 06:57:00* Test Item Value Reference Range Interpretation Comments Red Blood Count (test code = 789-8) 3.12 3.6-5.[address] [facility] CenterHemoglobin2018-11-30 06:57:00* Test Item Value Reference Range Interpretation Comments Hemoglobin (test code = 40263-9) 10.1 12.0-16.[address] [facility] CenterHematocrit2018-11-30 06:57:00* Test Item Value Reference Range Interpretation Comments Hematocrit (test code = 4544-3) 31.5 34.2-44.[address] [facility] CenterMean Corpuscular Gflrjm6176-96-03 06:57:00* Test Item Value Reference Range Interpretation Comments Mean Corpuscular Volume (test code = 787-2) 101.0 81-[address] [facility] CenterMean Corpuscular Mybsflsoiz9987-21-08 06:57:00* Test Item Value Reference Range Interpretation Comments Mean Corpuscular Hemoglobin (test code = 785-6) 32.4 28-[address] [facility] CenterMean Corpuscular Hemoglobin Concent 2018-06-11 06:57:00* Test Item Value Reference Range Interpretation Comments Mean Corpuscular Hemoglobin Concent (test code = 786-4) 32.1 31-35 [facility] CenterRed Cell Distribution Jnzyw7494-49-80 06:57:00* Test Item Value Reference Range Interpretation Comments Red Cell Distribution Width (test code = 02158-8) 14.4 11.7 -14.4 [facility] CenterPlatelet Mhenv7448-55-71 06:57:00* Test Item Value Reference Range Interpretation Comments Platelet Count (test code = 777-3) 248 140-360 [facility] CenterNeutrophils (%) (Auto)2018-06-11 06:57:00 * Test Item Value Reference Range Interpretation Comments Neutrophils (%) (Auto) (test code = 79254-2) 66.4 38.7-80.0 [facility] CenterLymphocytes (%) (Auto)2018-06-11 06:57:00 * Test Item Value Reference Range Interpretation Comments Lymphocytes (%) (Auto) (test code = 736-9) 15.3 18.0-39.[address] [facility] CenterMonocytes (%) (Auto)2018-06-11 06:57:00* Test Item Value Reference Range Interpretation Comments Monocytes (%) (Auto) (test code = 5905-5) 13.5 4.4-11.[address] [facility] CenterEosinophils (%) (Auto)2018-06-11 06:57:00 * Test Item Value Reference Range Interpretation Comments Eosinophils (%) (Auto) (test code = 713-8) 4.2 0.0-6.0 [facility] CenterBasophils (%) (Auto)2018-06-11 06:57:00* Test Item Value Reference Range Interpretation Comments Basophils (%) (Auto) (test code = 706-2) 0.3 0.0-1.0 [facility] CenterIM GRANULOCYTES %2018-06-11 06:57:00* Test Item Value Reference Range Interpretation Comments IM GRANULOCYTES % (test code = IM GRANULOCYTES %) 0.3 0.0- 1.0 [facility] CenterNeutrophils # (Auto)2018-06-11 06:57:00* Test Item Value Reference Range Interpretation Comments Neutrophils # (Auto) (test code = 751-8) 4.1 2.1-6.9 [facility] CenterLymphocytes # (Auto)2018-06-11 06:57:00* Test Item Value Reference Range Interpretation Comments Lymphocytes # (Auto) (test code = 49266-7) 0.9 1.0-3.[address] [facility] CenterMonocytes # (Auto)2018-06-11 06:57:00* Test Item Value Reference Range Interpretation Comments Monocytes # (Auto) (test code = 742-7) 0.8 0.2-0.8 [facility] CenterEosinophils # (Auto)2018-06-11 06:57:00* Test Item Value Reference Range Interpretation Comments Eosinophils # (Auto) (test code = 711-2) 0.3 0.0-0.4 [facility] CenterBasophils # (Auto)2018-06-11 06:57:00* Test Item Value Reference Range Interpretation Comments Basophils # (Auto) (test code = 704-7) 0.0 0.0-0.1 [facility] CenterAbsolute Immature Granulocyte (auto 2018-06-11 06:57:00* Test Item Value Reference Range Interpretation Comments Absolute Immature Granulocyte (auto (jasvir t code = Absolute Immature Granulocyte (auto) 0.02 0-0.1 [facility] CenterWhite Blood Ietfz2632-23-65 06:57:00* Test Item Value Reference Range Interpretation Comments White Blood Count (test code = 6690-2) 6.16 4.8-10.8 [facility] CenterRed Blood Puyxo9923-70-87 06:57:00* Test Item Value Reference Range Interpretation Comments Red Blood Count (test code = 789-8) 3.12 3.6-5.[address] [facility] CenterHemoglobin2018-11-30 06:57:00* Test Item Value Reference Range Interpretation Comments Hemoglobin (test code = 32428-8) 10.1 12.0-16.[address] [facility] CenterHematocrit2018-11-30 06:57:00* Test Item Value Reference Range Interpretation Comments Hematocrit (test code = 4544-3) 31.5 34.2-44.[address] [facility] CenterMean Corpuscular Rvcdko6472-33-18 06:57:00* Test Item Value Reference Range Interpretation Comments Mean Corpuscular Volume (test code = 787-2) 101.0 81-[address] [facility] CenterMean Corpuscular Sjijpdjpwh1921-96-62 06:57:00* Test Item Value Reference Range Interpretation Comments Mean Corpuscular Hemoglobin (test code = 785-6) 32.4 28-[address] [facility] CenterMean Corpuscular Hemoglobin Concent 2018-06-11 06:57:00* Test Item Value Reference Range Interpretation Comments Mean Corpuscular Hemoglobin Concent (test code = 786-4) 32.1 31-35 [facility] CenterRed Cell Distribution Mmols2194-38-85 06:57:00* Test Item Value Reference Range Interpretation Comments Red Cell Distribution Width (test code = 96000-8) 14.4 11.7 -14.4 [facility] CenterPlatelet Xocyc8257-69-30 06:57:00* Test Item Value Reference Range Interpretation Comments Platelet Count (test code = 777-3) 248 140-360 [facility] CenterNeutrophils (%) (Auto)2018-06-11 06:57:00 * Test Item Value Reference Range Interpretation Comments Neutrophils (%) (Auto) (test code = 33439-7) 66.4 38.7-80.0 [facility] CenterLymphocytes (%) (Auto)2018-06-11 06:57:00 * Test Item Value Reference Range Interpretation Comments Lymphocytes (%) (Auto) (test code = 736-9) 15.3 18.0-39.[address] [facility] CenterMonocytes (%) (Auto)2018-06-11 06:57:00* Test Item Value Reference Range Interpretation Comments Monocytes (%) (Auto) (test code = 5905-5) 13.5 4.4-11.[address] [facility] CenterEosinophils (%) (Auto)2018-06-11 06:57:00 * Test Item Value Reference Range Interpretation Comments Eosinophils (%) (Auto) (test code = 713-8) 4.2 0.0-6.0 [facility] CenterBasophils (%) (Auto)2018-06-11 06:57:00* Test Item Value Reference Range Interpretation Comments Basophils (%) (Auto) (test code = 706-2) 0.3 0.0-1.0 [facility] CenterIM GRANULOCYTES %2018-06-11 06:57:00* Test Item Value Reference Range Interpretation Comments IM GRANULOCYTES % (test code = IM GRANULOCYTES %) 0.3 0.0- 1.0 [facility] CenterNeutrophils # (Auto)2018-06-11 06:57:00* Test Item Value Reference Range Interpretation Comments Neutrophils # (Auto) (test code = 751-8) 4.1 2.1-6.9 [facility] CenterLymphocytes # (Auto)2018-06-11 06:57:00* Test Item Value Reference Range Interpretation Comments Lymphocytes # (Auto) (test code = 43734-4) 0.9 1.0-3.[address] [facility] CenterMonocytes # (Auto)2018-06-11 06:57:00* Test Item Value Reference Range Interpretation Comments Monocytes # (Auto) (test code = 742-7) 0.8 0.2-0.8 [facility] CenterEosinophils # (Auto)2018-06-11 06:57:00* Test Item Value Reference Range Interpretation Comments Eosinophils # (Auto) (test code = 711-2) 0.3 0.0-0.4 [facility] CenterBasophils # (Auto)2018-06-11 06:57:00* Test Item Value Reference Range Interpretation Comments Basophils # (Auto) (test code = 704-7) 0.0 0.0-0.1 [facility] CenterAbsolute Immature Granulocyte (auto 2018-06-11 06:57:00* Test Item Value Reference Range Interpretation Comments Absolute Immature Granulocyte (auto (jasvir t code = Absolute Immature Granulocyte (auto) 0.02 0-0.1 [facility] CenterABDOMEN-1VIEW (KUB)2018-06-11 06:49:00 [place] [address] Patient Name: VIRA MESSINA MR #: [id number] : 1955 Age/Sex: 63/F Req #: [id number] Adm Physician: ALIE DUARTE MD Ordered by: Victoriano Hicks ROUNDING MACHINE OPERATOR Report #: [id number] Location: MED/SURG3 Room/Bed: [facility] Procedure: [id number] DX /ABDOMEN-1VIEW (KUB) Exam Date: 06/11/18 Exam [...] 06/11/18648 COPY TO: VICTORIANO HICKS NP Carcinoembryonic Ecjaqnw6184-09-10 06:08:00 * Test Item Value Reference Range Interpretation Comments Carcinoembryonic Antigen (test code = 2039-6) 4.0 0.0-4.7 Radha ECLIA methodology Nonsmokers <3.9 Smokers <5.6Performed at: [facility] [address] [id number] Director: Jung Ramirez MD, Phone: [phone]. [facility]'s [facility] Medical CenterCarcinoembryonic Wwivrem2009-77-82 06:08:00* Test Item Value Reference Range Interpretation Comments Carcinoembryonic Antigen (test code = 2039-6) 4.0 0.0-4.7 Radha ECLIA methodology Nonsmokers <3.9 Smokers <5.6Performed at: [facility] [address] [id number] Director: Jung Ramirez MD, Phone: [phone] [facility] CenterCHES SINGLE (PORTABLE)2018-06-10 06:54:00 [place] [address] Patient Name: VIRA MESSINA MR #: [id number] : 1955 Age/Sex: 63/F Req #: [id number] Adm Physician: ALIE DUARTE MD Ordered by: SONNY MEDRANO ROUNDING MACHINE OPERATOR Report #: [id number] Location: MED/SURG3 Room/Bed: [facility] Procedure: [id number] DX/ CHEST SINGLE (PORTABLE) Exam Date: 06/10/18 [...] SONNY MEDRANO NP ABDOMEN- 1VIEW (KUB)2018-06-10 06:54:00 [place] [address] Patient Name: VIRA MESSINA MR #: [id number] : 1955 Age/Sex: 63/F Req #: [id number] Adm Physician: ALIE DUARTE MD Ordered by: SONNY MEDRANO NP Report #: [id number] Location: [facility] Room/Bed: [facility] Procedure: [id number] DX/ ABDOMEN-1VIEW (KUB) Exam Date: 06/10/18 Exam [...] B y: SONAM on 06/10/18654 COPY TO: OSNNY MEDRANO NP Thyroid Stimulating Hormone (TSH)2018-06-10 06:14:00* Test Item Value Reference Range Interpretation Comments Thyroid Stimulating Hormone (TSH) (test code = 40598-5) 1.351 0.350-4.940 [facility] CenterThyroid Stimulating Hormone (TSH) 2018-06-10 06:14:00* Test Item Value Reference Range Interpretation Comments Thyroid Stimulating Hormone (TSH) (test code = 61127-0) 1.351 0.350-4.940 [facility] CenterPhosphorus Hnabz6067-18-19 05:43:00* Test Item Value Reference Range Interpretation Comments Phosphorus Level (test code = RTQ0625) 2.7 2.3-4.7 [facility] CenterTotal Jahrhpias7154-99-54 05:43:00* Test Item Value Reference Range Interpretation Comments Total Bilirubin (test code = 1975-2) 0.7 0.2-1.2 [facility] CenterAspartate Amino Transf (AST/SGOT) 2018-06-10 05:43:00* Test Item Value Reference Range Interpretation Comments Aspartate Amino Transf (AST/SGOT) (test code = Aspartate Amino Transf (AST/SGOT)) 21 5-34 [facility] CenterAlanine Aminotransferase (ALT/SGPT) 2018-06-10 05:43:00* Test Item Value Reference Range Interpretation Comments Alanine Aminotransferase (ALT/SGPT) (test code = 1742-6) < 6 0-55 [facility] CenterTotal Whzdewk6596-72-02 05:43:00* Test Item Value Reference Range Interpretation Comments Total Protein (test code = 2885-2) 6.4 6.5-8.[address] [facility] CenterAlbumin2018-11-29 05:43:00* Test Item Value Reference Range Interpretation Comments Albumin (test code = 1751-7) 2.9 3.5-5.[address] [facility] CenterGlobulin2018-11-29 05:43:00* Test Item Value Reference Range Interpretation Comments Globulin (test code = 23542-7) 3.5 2.3-3.5 [facility] CenterAlbumin/Globulin Rlkuf3086-06-32 05:43:00 * Test Item Value Reference Range Interpretation Comments Albumin/Globulin Ratio (test code = 1759-0) 0.8 0.8-2.0 [facility] CenterAlkaline Zgwnyplqeco5534-16-64 05:43:00* Test Item Value Reference Range Interpretation Comments Alkaline Phosphatase (test code = 6768-6) 65 40-150 [facility] CenterTriglycerides Bldic8194-49-60 05:43:00* Test Item Value Reference Range Interpretation Comments Triglycerides Level (test code = 2571-8) 99 0-149 [facility] CenterCholesterol Nwqvl5172-07-93 05:43:00* Test Item Value Reference Range Interpretation Comments Cholesterol Level (test code = 2093-3) 134 0-199 Less than 200 mg/dL Low Syxt946 - 239 mg/dL Borderline Sgkp435 m g/dl and greater High Risk [facility] CenterLDL Nvutwijqxdu9655-69-10 05:43:00* Test Item Value Reference Range Interpretation Comments LDL Cholesterol (test code = 2089-1) 39 60-[address] [facility] CenterHDL Agowhtwoiel1030-75-16 05:43:00* Test Item Value Reference Range Interpretation Comments HDL Cholesterol (test code = 2085-9) 75 40-[address] [facility] CenterCholesterol/HDL Vbopz2378-64-52 05:43:00 * Test Item Value Reference Range Interpretation Comments Cholesterol/HDL Ratio (test code = 9830-1) 1.8 3.0-3.[address] [facility] CenterPhosphorus Wwtrg8215-52-84 05:43:00* Test Item Value Reference Range Interpretation Comments Phosphorus Level (test code = TPK3885) 2.7 2.3-4.7 [facility] CenterTotal Zenrolduf0736-67-29 05:43:00* Test Item Value Reference Range Interpretation Comments Total Bilirubin (test code = 1975-2) 0.7 0.2-1.2 [facility] CenterAspartate Amino Transf (AST/SGOT) 2018-06-10 05:43:00* Test Item Value Reference Range Interpretation Comments Aspartate Amino Transf (AST/SGOT) (test code = Aspartate Amino Transf (AST/SGOT)) 21 5-34 [facility] CenterAlanine Aminotransferase (ALT/SGPT) 2018-06-10 05:43:00* Test Item Value Reference Range Interpretation Comments Alanine Aminotransferase (ALT/SGPT) (test code = 1742-6) < 6 0-55 [facility] CenterTotal Tzjsabc1656-14-86 05:43:00* Test Item Value Reference Range Interpretation Comments Total Protein (test code = 2885-2) 6.4 6.5-8.[address] [facility] CenterAlbumin2018-11-29 05:43:00* Test Item Value Reference Range Interpretation Comments Albumin (test code = 1751-7) 2.9 3.5-5.[address] [facility] CenterGlobulin2018-11-29 05:43:00* Test Item Value Reference Range Interpretation Comments Globulin (test code = 23840-0) 3.5 2.3-3.5 [facility] CenterAlbumin/Globulin Mcuju1366-35-89 05:43:00 * Test Item Value Reference Range Interpretation Comments Albumin/Globulin Ratio (test code = 1759-0) 0.8 0.8-2.0 [facility] CenterAlkaline Eqsolzanyor1543-60-41 05:43:00* Test Item Value Reference Range Interpretation Comments Alkaline Phosphatase (test code = 6768-6) 65 40-150 [facility] CenterTriglycerides Ekinq3014-42-64 05:43:00* Test Item Value Reference Range Interpretation Comments Triglycerides Level (test code = 2571-8) 99 0-149 [facility] CenterCholesterol Zfqie2449-93-82 05:43:00* Test Item Value Reference Range Interpretation Comments Cholesterol Level (test code = 2093-3) 134 0-199 Less than 200 mg/dL Low Uucu375 - 239 mg/dL Borderline Ksxi548 m g/dl and greater High Risk [facility] CenterLDL Szlthuvfmyp1837-41-46 05:43:00* Test Item Value Reference Range Interpretation Comments LDL Cholesterol (test code = 2089-1) 39 60-[address] [facility] CenterHDL Vktlwlzneop1904-76-53 05:43:00* Test Item Value Reference Range Interpretation Comments HDL Cholesterol (test code = 2085-9) 75 40-[address] [facility]Ch[facility]/HDL [id number] 05:43:00 * Test Item Value Reference Range Interpretation Comments Cholesterol/HDL Ratio (test code = 9830-1) 1.8 3.0-3.[address] [facility] CenterHemoglobin A1c Dtjcqrn3197-98-40 05:36:00 * Test Item Value Reference Range Interpretation Comments Hemoglobin A1c Percent (test code = Hemoglobin A1c Percent) 4.5 4.0-7.0 [facility] CenterHemoglobin A1c [id number] 05:36:00 * Test Item Value Reference Range Interpretation Comments Hemoglobin A1c Percent (test code = Hemoglobin A1c Percent) 4.5 4.0-7.0 [facility]2018-11-29 05:26:00* Test Item Value Reference Range Interpretation Comments Ammonia (test code = 75804-0) 57 31-123 [facility]2018-11-29 05:26:00* Test Item Value Reference Range Interpretation Comments Ammonia (test code = 51169-2) 57 -123 [facility] CenterCT ABDOMEN/PELVIS [id number] 18:36:00 [place] [address] Patient Name: VIRA MESSINA MR #: [id number] : 1955 Age/Sex: 63/F Req #: [id number] Adm Physician: Ordered by: URBANO CALABRESE ROUNDING MACHINE OPERATOR Report #: [id number] Location: ER Room/Bed: Procedure: [id number] C T/CT ABDOMEN/PELVIS WO Exam Date: 06/09/18 [...] PY TO: URBANO CALABRESE NP Lactic Acid [id number] 15:28:00* Test Item Value Reference Range Interpretation Comments Lactic Acid Level (test code = Lactic Acid Level) 9.9 4.5- 19.8 [facility] CenterL[facility] Acid Vyvxt7317-64-03 15:28:00* Test Item Value Reference Range Interpretation Comments Lactic Acid Level (test code = Lactic Acid Level) 9.9 4.5- 19.8 [facility] CenterUrine [id number] 15:14:00* Test Item Value Reference Range Interpretation Comments Urine WBC (test code = 5821-4) 0-5 0-5 [facility] [id number] 15:14:00* Test Item Value Reference Range Interpretation Comments Urine RBC (test code = 05384-1) 0-5 0-5 [facility] [id number] 15:14:00* Test Item Value Reference Range Interpretation Comments Urine Bacteria (test code = 25665-6) FEW NONE [facility] CenterU[facility] Epithelial [id number] 15:14:00 * Test Item Value Reference Range Interpretation Comments Urine Epithelial Cells (test code = 46824-9) FEW NONE [facility] CenterU[facility] Amorphous [id number] 15:14:00* Test Item Value Reference Range Interpretation Comments Urine Amorphous Sediment (test code = 8246-1) MODERATE FEW H [facility] CenterU[facility] Hyaline [id number] 15:14:00* Test Item Value Reference Range Interpretation Comments Urine Hyaline Casts (test code = 78727-3) 2-5 0-[address] [facility] [id number] 15:14:00* Test Item Value Reference Range Interpretation Comments Urine WBC (test code = 5821-4) 0-5 0-5 [facility] CenterU[facility] [id number] 15:14:00* Test Item Value Reference Range Interpretation Comments Urine RBC (test code = 02663-4) 0-5 0-5 [facility] [id number] 15:14:00* Test Item Value Reference Range Interpretation Comments Urine Bacteria (test code = 38043-1) FEW NONE [facility] CenterU[facility] Epithelial [id number] 15:14:00 * Test Item Value Reference Range Interpretation Comments Urine Epithelial Cells (test code = 60516-1) FEW NONE [facility] CenterU[facility] Amorphous Rlllkuei3024-77-01 15:14:00* Test Item Value Reference Range Interpretation Comments Urine Amorphous Sediment (test code = 8246-1) MODERATE FEW H [facility] CenterU[facility] Hyaline [id number] 15:14:00* Test Item Value Reference Range Interpretation Comments Urine Hyaline Casts (test code = 26826-7) 2-5 0-[address] [facility] CenterProthrombin [id number] 15:09:00* Test Item Value Reference Range Interpretation Comments Prothrombin Time (test code = 5902-2) 11.1 11.9-14.[address] [facility] CenterProthromb Time International Ratio 2018-06-09 15:09:00* Test Item Value Reference Range Interpretation Comments Prothromb Time International Ratio (test code = 6301-6) 0.74 Oral Anticoagulant Therapy INR Values:1. Low Intensity Therapy 1.5 - 2.02 . Moderate Intensity Therapy 2.0 - 3.03. High Intensity Therapy(1) 2.5 - 3. 54. High Intensity Therapy(2) 3.0 - 4.05. Panic Value INR > 5.0 [facility] CenterActivated Partial Thromboplast Time 2018-06-09 15:09:00* Test Item Value Reference Range Interpretation Comments Activated Partial Thromboplast Time (test code = 28420-1) 30.3 23.8-35.5 [facility] CenterAmylase [id number] 15:09:00* Test Item Value Reference Range Interpretation Comments Amylase Level (test code = 1798-8) 45 25-125 [facility] CenterLipase2018-11-28 15:09:00* Test Item Value Reference Range Interpretation Comments Lipase (test code = 3040-3) 8 [facility] CenterProthrombin [id number] 15:09:00* Test Item Value Reference Range Interpretation Comments Prothrombin Time (test code = 5902-2) 11.1 11.9-14.[address] [facility] CenterProthromb Time International Ratio 2018-06-09 15:09:00* Test Item Value Reference Range Interpretation Comments Prothromb Time International Ratio (test code = 6301-6) 0.74 Oral Anticoagulant Therapy INR Values:1. Low Intensity Therapy 1.5 - 2.02 . Moderate Intensity Therapy 2.0 - 3.03. High Intensity Therapy(1) 2.5 - 3. 54. High Intensity Therapy(2) 3.0 - 4.05. Panic Value INR > 5.0 [facility] CenterActivated Partial Thromboplast Time 2018-06-09 15:09:00* Test Item Value Reference Range Interpretation Comments Activated Partial Thromboplast Time (test code = 86772-0) 30.3 23.8-35.5 [facility] CenterAmylase [id number] 15:09:00* Test Item Value Reference Range Interpretation Comments Amylase Level (test code = 1798-8) 45 25-125 [facility] CenterLipase2018-11-28 15:09:00* Test Item Value Reference Range Interpretation Comments Lipase (test code = 3040-3) [facility] CenterU[facility] [id number] 15:03:00* Test Item Value Reference Range Interpretation Comments Urine Color (test code = 5778-6) STRAW YELLOW [facility] CenterUrine Rilubev4682-79-04 15:03:00* Test Item Value Reference Range Interpretation Comments Urine Clarity (test code = 57283-0) SL CLOUDY CLEAR [facility] CenterUrine Specific [id number] 15:03:00 * Test Item Value Reference Range Interpretation Comments Urine Specific [place] (test code = 5811-5) 1.025 1.010-1.[address] [facility] CenterU[facility] [id number] 15:03:00* Test Item Value Reference Range Interpretation Comments Urine pH (test code = 46736-2) 5 5-7 [facility] CenterU[facility] Leukocyte Dxwctwbj9577-90-94 15:03:00* Test Item Value Reference Range Interpretation Comments Urine Leukocyte Esterase (test code = 5799-2) NEGATIVE NEGATIVE [facility] CenterUrine [id number] 15:03:00* Test Item Value Reference Range Interpretation Comments Urine Nitrite (test code = 70987-7) NEGATIVE NEGATIVE [facility] CenterU[facility] [id number] 15:03:00* Test Item Value Reference Range Interpretation Comments Urine Protein (test code = 5804-0) NEGATIVE NEGATIVE [facility] CenterU[facility] Glucose (UA)2018-06-09 15:03:00* Test Item Value Reference Range Interpretation Comments Urine Glucose (UA) (test code = 2349-9) NEGATIVE NEGATIVE [facility] CenterU[facility] [id number] 15:03:00* Test Item Value Reference Range Interpretation Comments Urine Ketones (test code = 52155-0) NEGATIVE NEGATIVE [facility] [id number] 15:03:00* Test Item Value Reference Range Interpretation Comments Urine Urobilinogen (test code = 95164-7) 0.2 0.2-1 [facility] CenterU[facility] Bvchpfbpd3555-33-40 15:03:00* Test Item Value Reference Range Interpretation Comments Urine Bilirubin (test code = 1978-6) NEGATIVE NEGATIVE [facility] CenterU[facility] Ddehb7773-02-99 15:03:00* Test Item Value Reference Range Interpretation Comments Urine Blood (test code = 03171-7) 1+ NEGATIVE H [facility] CenterU[facility] Qieu1918-01-07 15:03:00* Test Item Value Reference Range Interpretation Comments Urine Test (test code = 2106-3) NEGATIVE NEGATIVE [facility] CenterU[facility] [id number] 15:03:00* Test Item Value Reference Range Interpretation Comments Urine Color (test code = 5778-6) STRAW YELLOW [facility] CenterU[facility] [id number] 15:03:00* Test Item Value Reference Range Interpretation Comments Urine Clarity (test code = 10765-1) SL CLOUDY CLEAR [facility] CenterU[facility] Specific Ntspppw8994-39-57 15:03:00 * Test Item Value Reference Range Interpretation Comments Urine Specific [place] (test code = 5811-5) 1.025 1.010-1.[address] [facility] CenterU[facility] [id number] 15:03:00* Test Item Value Reference Range Interpretation Comments Urine pH (test code = 78340-1) 5 5-7 [facility] CenterU[facility] Leukocyte Gfuzuryy1454-38-87 15:03:00* Test Item Value Reference Range Interpretation Comments Urine Leukocyte Esterase (test code = 5799-2) NEGATIVE NEGATIVE [facility] Ptbriri8241-46-81 15:03:00* Test Item Value Reference Range Interpretation Comments Urine Nitrite (test code = 95909-4) NEGATIVE NEGATIVE [facility] CenterU[facility] Qdkhyxu1393-09-99 15:03:00* Test Item Value Reference Range Interpretation Comments Urine Protein (test code = 5804-0) NEGATIVE NEGATIVE [facility] Glucose (UA)2018-06-09 15:03:00* Test Item Value Reference Range Interpretation Comments Urine Glucose (UA) (test code = 2349-9) NEGATIVE NEGATIVE [facility] [id number] 15:03:00* Test Item Value Reference Range Interpretation Comments Urine Ketones (test code = 37881-0) NEGATIVE NEGATIVE [facility] CenterU[facility] Ddyvjvlpgfor6450-64-29 15:03:00* Test Item Value Reference Range Interpretation Comments Urine Urobilinogen (test code = 38771-2) 0.2 0.2-1 [facility] Gepgvbqpq5341-92-25 15:03:00* Test Item Value Reference Range Interpretation Comments Urine Bilirubin (test code = 1978-6) NEGATIVE NEGATIVE [facility] CenterU[facility] [id number] 15:03:00* Test Item Value Reference Range Interpretation Comments Urine Blood (test code = 55368-2) 1+ NEGATIVE H [facility] [id number] 15:03:00* Test Item Value Reference Range Interpretation Comments Urine Test (test code = 2106-3) NEGATIVE NEGATIVE [facility] SINGLE (PORTABLE)2018-01-28 17:17:00 [facility] [address] [place] [address] Patient Name: VIRA MESSINA MR #: [id number] : 1955 Age/Sex: 62/F Req #: [id number] Adm Physician: Ordered by: FIORDALIZA NICHOLE MD Report #: [id number] Location: ER Room/Bed: Procedure: [id number] DX/CHEST SINGLE (PORTABLE) Exam Date: 01/28/18 Exam [...] at 17:17 Dictated By: TREVOR WHITNEY MD [id number] Transcribed By: KRISTEN on 01/28/18 1717 COPY T O: FIORDALIZA NICHOLE MD SP LUMBAR AP LATERAL 2-3VWS [place] [address] Patient Name: VIRA MESSINA MR #: [id number] : 1955 Age/Sex: 62/F Req #: [id number] Adm Physician: Ordered by: NATTY TEE MD Report #: [id number] Location: ER Room/Bed: Procedure: [id number] DX/SP LUMBAR AP LATERAL 2-3VW S Exam [...]
--- NOTE | 2020-05-02 19:05 | Emergency Department Note ---
History of Present Illnes History of Present Illness Chief Complaint: Extremity Trauma/Pain History of Present Illness This is a 65 year old female Chief Complaint Comment pt came in via EMS for c/o swelling to the left foot, pt denies any trauma to her left lower extremity but states that the inflammation is worse than when she had it 2 weeks ago during her last visit, limited ROM to the LLE due to a previous CVA. 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 Arrival Mode: [facility] Archivist [employer] Required: No Onset (how long ago): week(s) (1) Location: LLE Quality: Swelling Radiation: Reports non-radiation Severity: unable to specify Onset quality: unable to specify Past Medical/Family History Physician Review I have reviewed the patient's past medical and family history. Any updates have been documented here. Past Medical History Recent Fever: No Clinical Suspicion of Infectio: No New/Unexplained Change in Ment: No Past Medical History: COPD, CHF, CVA Other Medical History: "Leaky heart valve," masters to face and hands Past Surgical History: None Other Surgery: Left hip surgery, LLE franck d/t fracture Social History Smoking Cessation: Current every day smoker Other Last Tetanus: UTD Review of Systems Review of Systems Constitutional: Reports no symptoms EENTM: Reports no symptoms Cardiovascular: Reports no symptoms Respiratory: Reports no symptoms Gastrointestinal: Reports no symptoms Genitourinary: Reports no symptoms Musculoskeletal: Reports no symptoms Integumentary: Reports as per HPI, Reports other (LLE swelling) Neurological: Reports no symptoms Psychological: Reports no symptoms Endocrine: Reports no symptoms Hematological/Lymphatic: Reports no symptoms Physical Exam Related Data Allergies: Coded Allergies: Iodinated Contrast Media (Verified Allergy, Severe, ANAPHYLAXIS, 11/10/18) morphine (Verified Allergy, Unknown, itch, 12/18/19) Triage Vital Signs Vital Signs Date Time Temp Pulse Resp B/P (MAP) Pulse Ox O2 Delivery O2 Flow Rate FiO2 05/02/20 17:59 98.5 106 18 116/74 97 Room Air Vital signs reviewed: Yes Physical Exam CONSTITUTIONAL Constitutional: Present well-developed, Present well-nourished HENT HENT: Present normocephalic, Present atraumatic, Present oropharynx clear/moist, Present nose normal HENT L/R: Present left ext ear normal, Present right ext ear normal EYES Eyes: Reports PERRL, Reports conjunctivae normal NECK Neck: Present ROM normal PULMONARY Pulmonary: Present effort normal, Present breath sounds normal CARDIOVASCULAR Cardiovascular: Present regular rhythm, Present heart sounds normal, Present capillary refill normal, Present normal rate GASTROINTESTINAL Abdominal: Present soft, Present nontender, Present bowel sounds normal GENITOURINARY Genitourinary: Present exam deferred SKIN Skin: Present warm, Present dry MUSCULOSKELETAL Musculoskeletal: Present ROM normal, Present other (LLE swelling, erythema, warmth. Pulses 2+/equal) NEUROLOGICAL Neurological: Present alert, Present oriented x 3, Present no gross motor or sensory deficits PSYCHOLOGICAL Psychological: Present mood/affect normal, Present judgement normal Results Laboratory Laboratory Laboratory Tests Test 05/02/20 18:40 Lab results reviewed: Yes Imaging Imaging results reviewed: Yes Assessment & Plan Medical Decision Making MDM 65 y.o f presents for LLE swelling. Diff includes cellulitis VS DVT among others. Doubt CHF given no pitting edema and unilateral. DVT US show no DVT. Diagnosis favors cellulitis. Will Rx Keflex and f/u w/ PCP. Assessment & Plan Final Impression: (1) Cellulitis Depart Disposition: HOME, SELF-CARE Last Vital Signs Date Time Temp Pulse Resp B/P (MAP) Pulse Ox O2 Delivery O2 Flow Rate FiO2 05/02/20 18:51 102 20 104/69 97 Room Air 05/02/20 17:59 98.5 Home Meds Active Scripts Acetaminophen/Codeine* (TYLENOL # 3*) 1 Ea Tab, 1 TAB PO Q8H PRN for PAIN, #30 Prov:VICTORIANO HICKS MARKET RESEARCH SPECIALIST 04/18/20 Prednisone (PREDNISONE) 20 Mg Tab, 20 MG PO UD for 15 Days TAKE 20MG PO BID X5 DAYS THEN TAKE 20MG PO DAILY X5 DAYS THEN TAKE 10MG PO DAILY X5 DAYS THEN STOP Prov:VICTORIANO HICKS MARKET RESEARCH SPECIALIST 04/18/20 Albuterol Sulf* (PROAIR HFA INHALER*) 8.5 Gm Inh, 2 INH INH Q6H PRN for SHORTNESS OF BREATH, #1 INH Prov:VICTORIANO HICKS MARKET RESEARCH SPECIALIST 04/18/20 Reported Medications Gabapentin (GABAPENTIN) 400 Mg Capsule, 400 MG PO TID 04/17/20 Zolpidem Tartrate (ZOLPIDEM TARTRATE) 10 Mg Tablet, 10 MG PO HS PRN for INSOMNIA 06/09/18 Clopidogrel Bisulfate* (PLAVIX) 75 Mg Tablet, 75 MG PO DAILY, #30 TAB 07/02/17 Medications in the ED Aspirin 81 mg PRN ONCE PO ; Start 05/02/20 at 18:30; Stop 05/02/20 at 18:38; Status DC JIE GILLETTE MD May 02, 2020 19:05
[2020-05-02 19:10] LABS: ALBUMIN 3.5 g/dL (3.5-5.0); ALBUMIN/GLOBULIN RATIO 1.1 (0.8-2.0); ALKALINE PHOSPHATASE 79 IU/L (40-150); ANION GAP 15.8 mmol/L (8-16); BLOOD UREA NITROGEN 12 mg/dL (7-26); BUN/CREATININE RATIO 16 (6-25); CALCIUM 8.7 mg/dL (8.4-10.2); CARBON DIOXIDE 28 mmol/L (22-29); CHLORIDE 99 mmol/L (98-107); CREATINE KINASE 25 IU/L (29-168); CREATININE, SERUM 0.74 mg/dL (0.57-1.11); EST GLOMERULAR FILTRATION RATE > 60 ML/MIN (60-); GLUCOSE 105 mg/dL (74-118); POTASSIUM 3.8 mmol/L (3.5-5.1); SODIUM 139 mmol/L (136-145)
[2020-05-02 19:11] LABS: BASOPHILS # (AUTO) 0.1 (0.0-0.1); BASOPHILS % 0.4 % (0.0-1.0); EOSINOPHILS # (AUTO) 0.1 (0.0-0.4); EOSINOPHILS % 0.5 % (0.0-6.0); HEMATOCRIT 32.3 % (34.2-44.1); HEMOGLOBIN 10.3 g/dL (12.0-16.0); LYMPHOCYTES # (AUTO) 0.8 (1.0-3.2); LYMPHOCYTES % 5.6 % (18.0-39.1); MEAN CORPUSCULAR HGB CONC 31.9 g/dL (31-35); MEAN CORPUSCULAR VOLUME 87.8 fL (81-99); MONOCYTES # (AUTO) 0.5 (0.2-0.8); MONOCYTES % 3.2 % (4.4-11.3); NEUTROPHILS # (AUTO) 12.9 (2.1-6.9); NEUTROPHILS % 89.7 % (38.7-80.0); PLATELET COUNT 359 x10e3/uL (140-360); RED BLOOD COUNT 3.68 x10e6/uL (3.6-5.1); RED CELL DISTRIBUTION WIDTH 15.9 % (11.7-14.4)
[2020-05-02 19:14] LABS: ALANINE AMINOTRANSFERASE < 6 IU/L (0-55)
[2020-05-02 19:29] LABS: INR 0.84; PARTIAL THROMBOPLASTIN TIME 27.9 seconds (23.8-35.5); PROTHROMBIN TIME 11.9 seconds (11.9-14.5)
[2020-05-02] MEDS ORDERED: KETOROLAC TROMETHAMINE 30 MG/ML VIAL IV STA (19:37)
[2020-05-02 20:47] VITALS: BP 100/70
== END 2020-05-02 21:02 | disposition home or self-care (01) ==
LOC: ER 18:33
DX: L03.90 Cellulitis, unspecified (principal); M79.89 Other specified soft tissue disorders; J44.9 Chronic obstructive pulmonary disease, unspecified; I50.9 Heart failure, unspecified; I69.30 Unspecified sequelae of cerebral infarction; F17.210 Nicotine dependence, cigarettes, uncomplicated
CPT/HCPCS: 36415; 80053; 82550; 82553; 84484; 85025; 85610; 85730; 93970; 99284; J1885

== ENCOUNTER 2020-05-09 04:09 | Emergency (ER) | payer MEDICARE ==
[~2020-05-09] VITALS: Ht 170.2 cm; Wt 65.8 kg
[2020-05-09] MEDS ORDERED: METHYLPREDNISOLONE SOD SUCC 125 MG/2ML VIAL IV STA (04:14)
--- NOTE | 2020-05-09 04:18 | Emergency Department Note ---
History of Present Illnes History of Present Illness Chief Complaint: Respiratory History of Present Illness This is a 65 year old female with h/o tobacco abuse presents to the ED for dyspnea prior to arrival. Recent admission to hospital. . 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 Any updates have been documented here. Past Medical History Recent Fever: No Clinical Suspicion of Infectio: No New/Unexplained Change in Ment: No Past Medical History: COPD, CHF, CVA Other Medical History: "Leaky heart valve," masters to face and hands Past Surgical History: None Other Surgery: Left hip surgery, LLE franck d/t fracture Social History Smoking Cessation: Current every day smoker Counseling Performed: Yes Alcohol Use: None Any Illegal Drug Use: No Other Last Tetanus: UTD Review of Systems Review of Systems Constitutional: Reports no symptoms EENTM: Reports no symptoms Cardiovascular: Reports no symptoms Respiratory: Reports dyspnea Gastrointestinal: Reports no symptoms Genitourinary: Reports no symptoms Musculoskeletal: Reports no symptoms Integumentary: Reports no symptoms Neurological: Reports no symptoms Psychological: Reports no symptoms Endocrine: Reports no symptoms Hematological/Lymphatic: Reports no symptoms Physical Exam Related Data Allergies: Coded Allergies: Iodinated Contrast Media (Verified Allergy, Severe, ANAPHYLAXIS, 11/10/18) morphine (Verified Allergy, Unknown, itch, 12/18/19) Triage Vital Signs Vital Signs Date Time Temp Pulse Resp B/P (MAP) Pulse Ox O2 Delivery O2 Flow Rate FiO2 05/09/20 04:14 98.2 110 26 97/55 98 Room Air 05/09/20 04:35 2.0 Vital signs reviewed: Yes Physical Exam CONSTITUTIONAL Constitutional: Present morbidly obese HENT HENT: Present normocephalic, Present atraumatic, Present oropharynx clear/moist, Present nose normal HENT L/R: Present left ext ear normal, Present right ext ear normal EYES Eyes: Reports PERRL, Reports conjunctivae normal NECK Neck: Present ROM normal PULMONARY Pulmonary: Present effort normal, Present other (b/l expiratory wheezing) CARDIOVASCULAR Cardiovascular: Present regular rhythm, Present heart sounds normal, Present capillary refill normal, Present normal rate GASTROINTESTINAL Abdominal: Present soft, Present nontender, Present bowel sounds normal GENITOURINARY Genitourinary: Present exam deferred SKIN Skin: Present warm, Present dry MUSCULOSKELETAL Musculoskeletal: Present ROM normal NEUROLOGICAL Neurological: Present alert, Present oriented x 3, Present no gross motor or sensory deficits PSYCHOLOGICAL Psychological: Present mood/affect normal, Present judgement normal Results Laboratory Lab results reviewed: Yes Imaging Imaging results reviewed: Yes Impressions [place] [address] Patient Name: VIRA MESSINA MR #: [id number] : 1955 Age/Sex: 65/F Req #: [id number] Adm Physician: Ordered by: MALGORZATA CERVANTES DO Report #: [id number] Location: ER Room/Bed: Procedure: [id number] DX/CHEST SINGLE (PORTABLE) Exam Date: 05/09/20 Exam Time: 509 REPORT STATUS: Signed EXAMINATION: CHEST SINGLE (PORTABLE) INDICATION: ^wheezing ^[id number] ^0510 COMPARISON: Radiograph dated 04/17/2020. FINDINGS: LUNGS: Unchanged prominent interstitial densities. Shallow lung volumes. No consolidation. PLEURA: No pleural effusion or pneumothorax. HEART AND MEDIASTINUM: The cardiomediastinal silhouette is unremarkable. IMPRESSION: No acute thoracic radiographic abnormality. Signed by: Lizzeth Burgess MD on 05/09/2020 5:41 AM Dictated By: LIZZETH BURGESS MD 0 Transcribed By: SONAM on 05/09/20 0541 COPY TO: MALGORZATA CERVANTES DO~ Procedures 12 Lead ECG Interpretation ECG Interpretation : ECG: ECG 1 Patient Transportation Driver: Interpreted by ED physician Date: May 09, 2020 Time: 04:25 Prior ECG tracings: reviewed Rhythm: sinus tachycardia Rate: tachycardia BPM: 109 Conduction: incomplete RBBB ST segments normal: Yes T waves normal: Yes Clinical Impression: non-specific ECG Assessment & Plan Medical Decision Making MDM Diff Dx : COPD, CHF, ACS, pneumonia, Sepsis Assessment & Plan Final Impression: (1) COPD (chronic obstructive pulmonary disease) Depart Disposition: HOME, SELF-halfway Meds Active Scripts Acetaminophen/Codeine* (TYLENOL # 3*) 1 Ea Tab, 1 TAB PO Q8H PRN for PAIN, #30 Prov:VICTORIANO HICKS STAND UP COMEDIAN 04/18/20 Prednisone (PREDNISONE) 20 Mg Tab, 20 MG PO UD for 15 Days TAKE 20MG PO BID X5 DAYS THEN TAKE 20MG PO DAILY X5 DAYS THEN TAKE 10MG PO DAILY X5 DAYS THEN STOP Prov:VICTORIANO HICKS NP 04/18/20 Albuterol Sulf* (PROAIR HFA INHALER*) 8.5 Gm Inh, 2 INH INH Q6H PRN for SHORTNESS OF BREATH, #1 INH Prov:VICTORIANO HICKS NP 04/18/20 Reported Medications Gabapentin (GABAPENTIN) 400 Mg Capsule, 400 MG PO TID 04/17/20 Zolpidem Tartrate (ZOLPIDEM TARTRATE) 10 Mg Tablet, 10 MG PO HS PRN for INSOMNIA 06/09/18 Clopidogrel Bisulfate* (PLAVIX) 75 Mg Tablet, 75 MG PO DAILY, #30 TAB 07/02/17 MALGORZATA CERVANTES DO May 09, 2020 04:18
[2020-05-09 04:25] LABS: BASOPHILS % 0.1 % (0.0-1.0); HEMATOCRIT 33.6 % (34.2-44.1); HEMOGLOBIN 10.9 g/dL (12.0-16.0); LYMPHOCYTES # (AUTO) 0.7 (1.0-3.2); LYMPHOCYTES % 7.2 % (18.0-39.1); MEAN CORPUSCULAR HEMOGLOBIN 27.8 pg (28-32); MEAN CORPUSCULAR HGB CONC 32.4 g/dL (31-35); MEAN CORPUSCULAR VOLUME 85.7 fL (81-99); MONOCYTES # (AUTO) 0.1 (0.2-0.8); MONOCYTES % 1.5 % (4.4-11.3); NEUTROPHILS # (AUTO) 8.4 (2.1-6.9); NEUTROPHILS % 90.6 % (38.7-80.0); PLATELET COUNT 373 x10e3/uL (140-360); RED BLOOD COUNT 3.92 x10e6/uL (3.6-5.1); RED CELL DISTRIBUTION WIDTH 15.2 % (11.7-14.4)
[2020-05-09 04:44] LABS: ALBUMIN 3.7 g/dL (3.5-5.0); ALBUMIN/GLOBULIN RATIO 1.1 (0.8-2.0); ALKALINE PHOSPHATASE 62 IU/L (40-150); ANION GAP 16.3 mmol/L (8-16); BLOOD UREA NITROGEN 15 mg/dL (7-26); BUN/CREATININE RATIO 21 (6-25); CALCIUM 9.8 mg/dL (8.4-10.2); CARBON DIOXIDE 25 mmol/L (22-29); CHLORIDE 100 mmol/L (98-107); CREATINE KINASE 19 IU/L (29-168); CREATININE, SERUM 0.72 mg/dL (0.57-1.11); EST GLOMERULAR FILTRATION RATE > 60 ML/MIN (60-); GLUCOSE 201 mg/dL (74-118); POTASSIUM 4.3 mmol/L (3.5-5.1); SODIUM 137 mmol/L (136-145)
[2020-05-09] MEDS ORDERED: ALBUTEROL/IPRATROPIUM 3 ML NEB NEB ONE (04:45)
[2020-05-09 04:47] LABS: ALANINE AMINOTRANSFERASE < 6 IU/L (0-55)
[2020-05-09 04:48] LABS: CREATINE KINASE MB < 1.00 ng/mL (0-4.3)
[2020-05-09 05:35] VITALS: BP 139/77
--- NOTE | 2020-05-09 05:45 | Diagnostic Imaging Report ---
EXAMINATION: CHEST SINGLE (PORTABLE) INDICATION: ^wheezing ^[id number] ^0510 COMPARISON: Radiograph dated 04/17/2020. FINDINGS: LUNGS: Unchanged prominent interstitial densities. Shallow lung volumes. No consolidation. PLEURA: No pleural effusion or pneumothorax. HEART AND MEDIASTINUM: The cardiomediastinal silhouette is unremarkable. IMPRESSION: No acute thoracic radiographic abnormality. Signed by: Hi Nelson MD on 05/09/2020 5:41 AM
== END 2020-05-09 06:09 | disposition home or self-care (01) ==
LOC: ER 04:14
DX: J44.9 Chronic obstructive pulmonary disease, unspecified (principal); R06.00 Dyspnea, unspecified; I50.9 Heart failure, unspecified; Z86.73 Personal history of transient ischemic attack (TIA), and cerebral infarction without residual deficits; F17.210 Nicotine dependence, cigarettes, uncomplicated
CPT/HCPCS: 36415; 71045; 80053; 82550; 82553; 83880; 84484; 85025; 93005; 94640; 99284; J2930

== ENCOUNTER 2020-06-14 02:07 | Emergency (ER) | payer MEDICARE ==
[~2020-06-14] VITALS: Ht 170.2 cm; Wt 65.8 kg
[2020-06-14 02:54] LABS: BASOPHILS # (AUTO) 0.1 (0.0-0.1); BASOPHILS % 0.7 % (0.0-1.0); EOSINOPHILS % 0.4 % (0.0-6.0); HEMATOCRIT 34.5 % (34.2-44.1); HEMOGLOBIN 10.9 g/dL (12.0-16.0); LYMPHOCYTES % 30.1 % (18.0-39.1); MEAN CORPUSCULAR HEMOGLOBIN 27.7 pg (28-32); MEAN CORPUSCULAR HGB CONC 31.6 g/dL (31-35); MEAN CORPUSCULAR VOLUME 87.8 fL (81-99); MONOCYTES # (AUTO) 0.7 (0.2-0.8); MONOCYTES % 10.1 % (4.4-11.3); NEUTROPHILS # (AUTO) 3.9 (2.1-6.9); NEUTROPHILS % 58.4 % (38.7-80.0); PLATELET COUNT 304 x10e3/uL (140-360); RED BLOOD COUNT 3.93 x10e6/uL (3.6-5.1); RED CELL DISTRIBUTION WIDTH 15.6 % (11.7-14.4)
[2020-06-14] MEDS ORDERED: METHYLPREDNISOLONE SOD SUCC 125 MG/2ML VIAL IM ONE (03:00)
--- NOTE | 2020-06-14 03:07 | Emergency Department Note ---
History of Present Illnes History of Present Illness Chief Complaint: Respiratory History of Present Illness This is a 65 year old female REPORTS INTERMITTENT SOB X5 HRS; NO SOB NOTED AT THIS TIME; SPO2 97% RA. PT DENIES FEVER, REPORTS COUGH, PT HAS H/O COPD AND CHF . 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 Arrival Mode: [employer] Segment Consultant Required: No Onset (how long ago): hour(s) (5) Location: LUNGS Quality: SOB Radiation: Reports non-radiation Severity: moderate Onset quality: sudden Duration (how long): hour(s) (5) Timing of current episode: intermittent Progression: waxing and waning Chronicity: recurrent Context: Denies recent illness, Denies recent surgery Relieving factors: none Exacerbating factors: none Associated symptoms: Reports cough, Reports shortness of breath; Denies fever/chills Treatments prior to arrival: none Past Medical/Family History Physician Review I have reviewed the patient's past medical and family history. Any updates have been documented here. Past Medical History Recent Fever: No Clinical Suspicion of Infectio: No New/Unexplained Change in Ment: No Past Medical History: COPD, CHF, CVA Other Medical History: "Leaky heart valve," masters to face and hands Past Surgical History: Hip Replacement Other Surgery: Left hip surgery, LLE franck d/t fracture Social History Smoking Cessation: Current every day smoker Alcohol Use: Occasional Any Illegal Drug Use: No Physically hurt or threatened: No Family History Family history of heart diseas: No Other family history HTN Other Last Tetanus: UTD Review of Systems Review of Systems Constitutional: Reports no symptoms EENTM: Reports no symptoms Cardiovascular: Reports no symptoms Respiratory: Reports as per HPI Gastrointestinal: Reports no symptoms Genitourinary: Reports no symptoms Musculoskeletal: Reports no symptoms Integumentary: Reports no symptoms Neurological: Reports no symptoms Psychological: Reports no symptoms Endocrine: Reports no symptoms Hematological/Lymphatic: Reports no symptoms Physical Exam Related Data Allergies: Coded Allergies: Iodinated Contrast Media (Verified Allergy, Severe, ANAPHYLAXIS, 11/10/18) morphine (Verified Allergy, Unknown, itch, 12/18/19) Triage Vital Signs Vital Signs Date Time Temp Pulse Resp B/P (MAP) Pulse Ox O2 Delivery O2 Flow Rate FiO2 06/14/20 02:30 98.6 89 23 98 Nasal Cannula 2.0 Physical Exam CONSTITUTIONAL Constitutional: Present well-developed, Present well-nourished; Absent distressed HENT HENT: Present normocephalic, Present atraumatic, Present oropharynx clear/moist, Present nose normal HENT L/R: Present left ext ear normal, Present right ext ear normal EYES Eyes: Reports PERRL, Reports conjunctivae normal NECK Neck: Present ROM normal PULMONARY Pulmonary: Present effort normal, Present other (MILD DECREASE AT BASES BILAT ERAL, NO WHEEZING,); Absent rales, Absent rhonchi CARDIOVASCULAR Cardiovascular: Present regular rhythm, Present heart sounds normal, Present capillary refill normal, Present normal rate GASTROINTESTINAL Abdominal: Present soft, Present nontender, Present bowel sounds normal GENITOURINARY Genitourinary: Present exam deferred SKIN Skin: Present warm, Present dry MUSCULOSKELETAL Musculoskeletal: Present ROM normal NEUROLOGICAL Neurological: Present alert, Present oriented x 3, Present no gross motor or sensory deficits PSYCHOLOGICAL Psychological: Present mood/affect normal, Present judgement normal Results Laboratory Result Diagram: 06/14/20 0246 Laboratory Laboratory Tests Test 06/14/20 02:46 White Blood Count 6.71 x10e3/uL (4.8-10.8) Red Blood Count 3.93 x10e6/uL (3.6-5.1) Hemoglobin 10.9 g/dL (12.0-16.0) Hematocrit 34.5 % (34.2-44.1) Mean Corpuscular Volume 87.8 fL (81-99) Mean Corpuscular Hemoglobin 27.7 pg (28-32) Mean Corpuscular Hemoglobin Concent 31.6 g/dL (31-35) Red Cell Distribution Width 15.6 % (11.7-14.4) Platelet Count 304 x10e3/uL (140-360) Neutrophils (%) (Auto) 58.4 % (38.7-80.0) Lymphocytes (%) (Auto) 30.1 % (18.0-39.1) Monocytes (%) (Auto) 10.1 % (4.4-11.3) Eosinophils (%) (Auto) 0.4 % (0.0-6.0) Basophils (%) (Auto) 0.7 % (0.0-1.0) Neutrophils # (Auto) 3.9 (2.1-6.9) Lymphocytes # (Auto) 2.0 (1.0-3.2) Monocytes # (Auto) 0.7 (0.2-0.8) Eosinophils # (Auto) 0.0 (0.0-0.4) Basophils # (Auto) 0.1 (0.0-0.1) Absolute Immature Granulocyte (auto 0.02 x10e3/uL (0-0.1) Sodium Level 138 mmol/L (136-145) Potassium Level 3.6 mmol/L (3.5-5.1) Chloride Level 101 mmol/L (98-107) Carbon Dioxide Level 24 mmol/L (22-29) Anion Gap 16.6 mmol/L (8-16) Blood Urea Nitrogen 8 mg/dL (7-26) Creatinine 0.82 mg/dL (0.57-1.11) Estimat Glomerular Filtration Rate > 60 ML/MIN (60-) BUN/Creatinine Ratio 10 (6-25) Glucose Level 111 mg/dL (74-118) Calcium Level 8.9 mg/dL (8.4-10.2) Total Bilirubin 0.2 mg/dL (0.2-1.2) Aspartate Amino Transf (AST/SGOT) 12 IU/L (5-34) Alanine Aminotransferase (ALT/SGPT) < 6 IU/L (0-55) Alkaline Phosphatase 84 IU/L (40-150) Creatine Kinase 43 IU/L (29-168) Creatine Kinase MB 0.70 ng/mL (0-5.0) Troponin I 0.001 ng/mL (0-0.300) B-Type Natriuretic Peptide 25.7 pg/mL (0-100) Total Protein 7.0 g/dL (6.5-8.1) Albumin 3.7 g/dL (3.5-5.0) Globulin 3.3 g/dL (2.3-3.5) Albumin/Globulin Ratio 1.1 (0.8-2.0) Laboratory Tests Test 06/14/20 02:46 White Blood Count 6.71 x10e3/uL (4.8-10.8) Red Blood Count 3.93 x10e6/uL (3.6-5.1) Hemoglobin 10.9 g/dL (12.0-16.0) Hematocrit 34.5 % (34.2-44.1) Mean Corpuscular Volume 87.8 fL (81-99) Mean Corpuscular Hemoglobin 27.7 pg (28-32) Mean Corpuscular Hemoglobin Concent 31.6 g/dL (31-35) Red Cell Distribution Width 15.6 % (11.7-14.4) Platelet Count 304 x10e3/uL (140-360) Neutrophils (%) (Auto) 58.4 % (38.7-80.0) Lymphocytes (%) (Auto) 30.1 % (18.0-39.1) Monocytes (%) (Auto) 10.1 % (4.4-11.3) Eosinophils (%) (Auto) 0.4 % (0.0-6.0) Basophils (%) (Auto) 0.7 % (0.0-1.0) Neutrophils # (Auto) 3.9 (2.1-6.9) Lymphocytes # (Auto) 2.0 (1.0-3.2) Monocytes # (Auto) 0.7 (0.2-0.8) Eosinophils # (Auto) 0.0 (0.0-0.4) Basophils # (Auto) 0.1 (0.0-0.1) Absolute Immature Granulocyte (auto 0.02 x10e3/uL (0-0.1) Lab results reviewed: Yes Imaging Imaging results reviewed: Yes Procedures 12 Lead ECG Interpretation ECG Interpretation : ECG: ECG 1 Group Segment Consultant: Interpreted by ED physician Date: Jun 14, 2020 Time: 02:40 Rhythm: sinus rhythm Rate: normal BPM: 81 ST segments normal: Yes T waves normal: Yes Q waves: V1 Clinical Impression: non-specific ECG Assessment & Plan Medical Decision Making [facility] PT WITH H/O COPD AND CHF WITH SOB CBC, CMP, EKG, BNP, CARDIAC ENZYMES, CXR ORDERED TO EVAL FOR PNEUMONIA, MYOCARDIAL INFARCTIONS, PULMONARY EDEMA, ELECTROLYTE ABNORMALITY Assessment & Plan Final Impression: (1) COPD (chronic obstructive pulmonary disease) Depart Disposition: HOME, SELF-CARE Last Vital Signs Date Time Temp Pulse Resp B/P (MAP) Pulse Ox O2 Delivery O2 Flow Rate FiO2 06/14/20 02:30 98.6 89 23 98 Nasal Cannula 2.0 Home Meds Active Scripts Acetaminophen/Codeine* (TYLENOL # 3*) 1 Ea Tab, 1 TAB PO Q8H PRN for PAIN, #30 Prov:VICTORIANO HICKS CIVIL SERVICE CLERK 04/18/20 Prednisone (PREDNISONE) 20 Mg Tab, 20 MG PO UD for 15 Days TAKE 20MG PO BID X5 DAYS THEN TAKE 20MG PO DAILY X5 DAYS THEN TAKE 10MG PO DAILY X5 DAYS THEN STOP Prov:VICTORIANO HICKS CIVIL SERVICE CLERK 04/18/20 Albuterol Sulf* (PROAIR HFA INHALER*) 8.5 Gm Inh, 2 INH INH Q6H PRN for SHORTNESS OF BREATH, #1 INH Prov:VICTORIANO HICKS CIVIL SERVICE CLERK 04/18/20 Reported Medications Gabapentin (GABAPENTIN) 400 Mg Capsule, 400 MG PO TID 04/17/20 Zolpidem Tartrate (ZOLPIDEM TARTRATE) 10 Mg Tablet, 10 MG PO HS PRN for INSOMNIA 06/09/18 Clopidogrel Bisulfate* (PLAVIX) 75 Mg Tablet, 75 MG PO DAILY, #30 TAB 07/02/17 Medications in the ED Methylprednisolone Sodium Succinate 125 mg ONCE ONCE IM ; Start 06/14/20 at 03:00; Stop 06/14/20 at 03:01; Status UNV CJ DYER MD Jun 14, 2020 03:07
[2020-06-14 03:12] LABS: ALBUMIN 3.7 g/dL (3.5-5.0); ALBUMIN/GLOBULIN RATIO 1.1 (0.8-2.0); ALKALINE PHOSPHATASE 84 IU/L (40-150); ANION GAP 16.6 mmol/L (8-16); BLOOD UREA NITROGEN 8 mg/dL (7-26); BUN/CREATININE RATIO 10 (6-25); CALCIUM 8.9 mg/dL (8.4-10.2); CARBON DIOXIDE 24 mmol/L (22-29); CHLORIDE 101 mmol/L (98-107); CREATINE KINASE 43 IU/L (29-168); CREATININE, SERUM 0.82 mg/dL (0.57-1.11); EST GLOMERULAR FILTRATION RATE > 60 ML/MIN (60-); GLUCOSE 111 mg/dL (74-118); POTASSIUM 3.6 mmol/L (3.5-5.1); SODIUM 138 mmol/L (136-145)
[2020-06-14 03:13] LABS: ALANINE AMINOTRANSFERASE < 6 IU/L (0-55)
--- NOTE | 2020-06-14 03:13 | NUR ---
RAD AT PTS BS TO PERFORM PORTABLE CHEST XRAY
--- OUTSIDE RECORDS SUMMARY | 2020-06-14 03:16 | XMS REPORT | Continuity of Care Document ---
Author Author Mobile ShareholderVIRA Mobile Shareholder Address Unknown Phone Unavailable Care Team Providers Care Knotter Name Role Phone [employer] Information Exchange Unavailable Un available Problems Problem [...]
--- OUTSIDE RECORDS SUMMARY | 2020-06-14 03:17 | XMS REPORT | Continuity of Care Document ---
Author Author [facility] t Organization [facility] Address [address] [place] [id number] Phone Unavailable Care Team Providers Care Sales Account Coordinator Name Role Phone RAO DO Shama KHOURY PCP MALGORZATA CERVANTES Attphys Unavailable SANDHIR, Nan NIETO Attphys Unavailable ALIE DUARTE Attphys Unavailable SWEET, Linda LUZ Attphys Unavailable HUSBY, T CAMMIE Attphys Unavailable MANEEVESE, V FIORDALIZA Attphys Unavailable ALIE DUARTE Admphys Unavailable Payers Payer Name Policy Type Policy Number Effective Date Expiration Date Nan olmedo [facility] [id number] 2019 00:00:00 [facility] [id number] 2019 00:00 :00 [facility] Problems Condition Name Condition Details Condition Category Status Onset Date Resolution Date Last Treatment Date Treating Clinician Comments Source Small bowel obstruction SBO (small bowel obstruction) Problem Active [facility] Acute exacerbation of chronic obstructive pulmonary disease Problem Active [facility] Bronchitis Problem Active [facility] Chronic obstructive pulmonary disease Problem Active [facility] Pneumonia Problem Active [facility] Lumbago with sciatica, unspecified side Lumbago with sciatica, unspecified side Active Problem 12/26/2016 [facility] Problem Active 2016-12-26 02:46:31 Pablito Valdivia Chronic pain disorder Mammal Keeper akhil pain disorder Active Problem 12/26/2016 [facility] Problem Active 2016-12-26 02:46:31 Marj Valdivia Laceration of elbow, left, initial encounter Laceration of elbow, left, initial encounter Active Diagnosis 12/25/2016 [facility] Diagnosis Active 2016-12-25 02:46:10 Marj Valdivia Elbow laceration, right, initial encounter Elbow laceration, right, initial encounter Active Diagnosis 12/25/2016 [facility] Diagnosis Active 2016-12-25 02:46:10 Ia collin Valdivia History of stroke Hist ory of stroke Active Diagnosis 12/25/2016 [facility] Diagnosis Active 2016-12-25 02:46:10 [facility] Allergies, Adverse Reactions, Alerts Allergy Name Allergy Type Status Severity Reaction(s) Onset Date Inacti ve Date Treating Clinician Comments Source Iodine and Iodide Containing Produc FA Active SV 4 00:00:00 [facility] morphine DA Active AL 2020-03-16 00:00:00 [facility] Iodine and Iodide Containing Produc FA Active SV 2020-01-11 7 00:00:00 [facility] morphine DA Active AL 2020-01-27 00:00:00 [facility] Iodine and Iodide Containing Produc FA Active SV 3 00:00:00 [facility] morphine DA Active AL 2020-01-13 00:00:00 [facility] Morphine Allergy to substance Active itch 2019-12-18 00:00:00 [facility] Iodine and Iodide Containing Produc FA Active SV 2019-11-11 6 00:00:00 [facility] morphine DA Active AL 2019-11-26 00:00:00 [facility] Iodine and Iodide Containing Produc FA Active SV 2019-04-14 1 00:00:00 [facility] morphine DA Active AL 2019-05-12 00:00:00 [facility] Iodinated Contrast Media Allergy to substance Active Severe A NAPHYLAXIS 2018-11-10 00:00:00 [facility] Iodine and Iodide Containing Produc FA Active SV 2017-11-10 5 00:00:00 [facility] morphine DA Active AL 2017-11-24 00:00:00 [facility] morphine morphine Active anaphylaxis 2016-12-11 00:00:00 [facility] Social [facility] Social Habit Start Date Stop Date Quantity Comments Source Sex Assigned At 1955 00:00:00 1955 00:00:00 Female [facility] Medications Ordered Medication Name Filled Medication Name Start Date Stop Da te Current Medication? Ordering Clinician Indication Dosage Frequency Signature (SIG) Comments Components Source Acetaminophen/Codeine Phosphate (Tylenol # 3*) 1 Ea TA B Acetaminophen/Codeine Phosphate (Tylenol # 3*) 1 Ea TAB 2020-04-18 12:42:00 Yes 1 Every 8 Hours as needed for Pain [facility] Albuterol Sulfate (Proair Hfa Inhaler*) 8.5 Gm INH Alb uterol Sulfate (Proair Hfa Inhaler*) 8.5 Gm INH 2020-04-18 12:42:00 Yes 2 Every 6 Hours as needed for Shortness Of Breath [facility] Prednisone Prednisone 2020-04-18 12:42:00 Yes 20 Use As Directed [facility] Acetaminophen/Codeine Phosphate (Tylenol # 3*) 1 Ea TA B Acetaminophen/Codeine Phosphate (Tylenol # 3*) 1 Ea TAB 2020-03-21 10:12:00 2020-04-17 00:00:00 No 1 Every 8 Hours as needed for Pain [facility] Azithromycin (Zithromax) 500 Mg TABLET Azithromycin (Zithrom ax) 500 Mg TABLET 2020-03-21 10:12:00 2020-04-17 00:00:00 No 500 Daily [facility] Cefdinir (Omnicef) 300 Mg CAPSULE Cefdinir (Omnicef) 300 Mg CAPSULE 2020-03-21 10:12:00 2020-04-17 00:00:00 No 300 Twice A Day [facility] Prednisone Prednisone 2020-03-21 10:12:2020-04-17 00:00:00 No 10 Use As Directed [facility] Azithromycin (Z-Ethan) 250 Mg TABLET Azithromycin (Z-Ethan) 250 Mg TABLET 2020-01-12 12:34:00 2020-03-21 00:00:00 No 1 As Directed [facility] Suboxone 2016-12-25 02:50:31 Yes RODOLFO COREA [address] [facility] Plavix 2016-12-25 02:46:10 Yes RODOLFO COREA 1 ta b(s) [facility] Ambien 2016-12-25 02:46:10 Yes RODOLFO COREA 1 ta b(s) [facility] Clopidogrel Bisulfate (Plavix) 75 Mg TABLET Clopidogre l Bisulfate (Plavix) 75 Mg TABLET Yes 75 Daily [facility] Gabapentin Gabapentin Yes 400 Three Times A Day [facility] Zolpidem Tartrate Zolpidem Tartrate Yes 10 Bedtime as needed for Insomnia [facility] Albuterol Sulfate (Proair Hfa Inhaler*) 8.5 Gm INH Alb uterol Sulfate (Proair Hfa Inhaler*) 8.5 Gm INH 2020-04-18 00:00:00 No 2 Every 6 Hours as needed for Shortness Of Breath [facility] Hydrocodone Bit/Acetaminophen (Hydrocodon-Acetaminophn 10-325) 1 Each TABLET Hydrocodone Bit/Acetaminophen (Hydrocodon-Acetaminophn 10-325) 1 Each TABLET 2020-04-18 00:00:00 No 1 Every 12 H ours as needed for Moderate Pain (4-6) [facility] Albuterol Albuterol 2020-04-17 00:00:00 No [facility] Albuterol Sulfate (Proair Hfa Inhaler*) 8.5 Gm INH Alb uterol Sulfate (Proair Hfa Inhaler*) 8.5 Gm INH 2020-04-17 00:00:00 No 2 Every 6 Hours as needed for Shortness Of Breath [facility] Alendronate Sodium Alendronate Sodium 2020-04-17 00:00:00 No 70 As Needed [facility] Buspirone Hcl Buspirone Hcl 2020-04-17 00:00:00 No 7.5 Twice A Day [facility] Clopidogrel Bisulfate (Clopidogrel) 75 Mg TABLET Clopi dogrel Bisulfate (Clopidogrel) 75 Mg TABLET 2020-04-17 00:00:00 No [facility] Flu Vac Qs 20-21(4YR Up)Desirae/Pf (Flucelva x Quad Syr) 60 Mcg/0.5 Ml SYRINGE Flu Vac Qs 20-21(4YR Up)Desirae/Pf (Flucelva x Quad Syr) 60 Mcg/0.5 Ml SYRINGE 2020-04-17 00:00:00 No [facility] Gabapentin Gabapentin 2020-04-17 00:00:00 No 600 Thr ee Times A Day [facility] Prednisone Prednisone 2020-04-17 00:00:00 No [facility] Tizanidine Hcl Tizanidine Hcl 2020-04-17 00:00:00 No 4 Every 8 Hours [facility] Zolpidem Zolpidem 2020-04-17 00:00:00 No [facility] Hydrocodone Bit/Acetaminophen (Branch 10-325 Tablet) 1 Each TABLET Hydrocodone Bit/Acetaminophen (Branch 10-325 Tablet) 1 Each TABLET 2020-03-21 00:00:00 No 1 Three Times A Day for Pain [facility] Meloxicam Meloxicam 2020-03-19 00:00:00 No 15 Daily [facility] Oxcarbazepine Oxcarbazepine 2020-03-19 00:00:00 No 600 Twice A Day [facility] Vital Signs Vital Name Observation Time Observation Value Comments Source Body Temperature 2020-04-18 11:18:00 98.5 [degF] [facility] Weight 2020-04-17 22:39:00 136.70 [lb_av] [facility] BMI (Body Mass Index) 2020-04-17 22:39:00 20.8 kg/m2 [facility] Body Temperature 2020-03-31 22:50:00 98.9 [degF] [facility] Weight 2020-03-31 19:21:00 141 [lb_av] [facility] BMI (Body Mass Index) 2020-03-31 19:21:00 21.4 kg/m2 [facility] Body Temperature 2020-03-21 08:41:00 97.8 [degF] [facility] Weight 2020-03-19 05:29:00 141.56 [lb_av] [facility] BMI (Body Mass Index) 2020-03-19 05:29:00 21.5 kg/m2 [facility] Weight 2020-01-26 22:36:00 125 [lb_av] [facility] BMI (Body Mass Index) 2020-01-26 22:36:00 19.0 kg/m2 [facility] Weight 2019-12-18 15:45:00 125 [lb_av] [facility] BMI (Body Mass Index) 2019-12-18 15:45:00 19.0 kg/m2 [facility] Temperature Oral (F) 2016-12-11 20:30:00 98.0 F [facility] Weight 2016-12-11 20:30:00 [facility] Height 2016-12-11 20:30:00 [facility] Respitory Rate 2016-12-11 20:30:00 [facility] Diastolic (mm Hg) 2016-12-11 20:30:00 [facility] Systolic (mm Hg) 2016-12-11 20:30:00 Mp [facility] Procedures Procedure Date / Time Performed Performing Clinician [facility] e Computed tomography of chest without contrast 2020-03-19 00:00:0 0 [facility] Plan of Care Planned Activity Planned Date Details Comments Source Instructions COPD [facility] Instructions Quitting Smoking [facility] Encounters Start Date/Time End Date/Time Encounter Type Admission Type Attendi [facility] Facility Care Department Encounter ID Source 2020-04-17 20:53:00 2020-04-18 13:46:00 Discharged Inpatient (obs) MALGORZATA CERVANTES [facility] [id number] [facility] 2020-03-31 19:13:00 2020-03-31 23:16:00 Departed Emergency Room 1 EMILIA ALANIS [facility] [id number] [facility] 2020-03-19 01:03:00 2020-03-21 11:27:00 Discharged Inpatient 1 ALIE DUARTE [facility] [id number] [facility] 2020-01-27 20:26:00 2020-01-27 15:56:00 Inpatient E [facility] [id number] 2020-01-26 22:40:00 2020-01-27 00:10:00 Departed Emergency Room MALGORZATA CERVANTES [facility] [id number] [facility] 2020-01-12 15:39:00 2020-01-12 15:39:00 Registered Emergency Room [facility] [id number] [facility] 2019-12-18 15:42:00 2019-12-18 19:00:00 Departed Emergency Room 1 NATTY TEE [facility] [id number] [facility] 2019-09-16 18:27:00 2019-09-16 18:27:00 Emergency E [id number] 2018-11-10 18:35:00 2018-11-10 21:35:00 Departed Emergency Room [address] [facility] [id number] [facility] 2018-06-09 19:46:00 2018-06-11 07:41:00 Discharged Inpatient [address] [facility] [id number] [facility] 2018-01-28 14:24:00 2018-01-28 17:50:00 Departed Emergency Room [address] [facility] [id number] [facility] 2017-07-02 22:33:00 2017-07-03 02:45:00 Departed Emergency Room ER NATTY TEE [id number] [facility] 2016-12-24 15:40:00 2016-12-24 15:40:00 Outpatient [facility] [id number] [facility] 2016-12-24 10:20:00 2016-12-24 10:20:00 Outpatient [facility] [id number] [facility] 2016-12-11 15:30:00 2016-12-11 15:30:00 Outpatient [facility] [id number] [facility] Results Test Description Test Time Test Comments Results Result Comments Source CHEST SINGLE (PORTABLE) 2020-05-09 05:37:00 [facility] : 1955 Sex: F [place] [address] Patient Name: VIRA MESSINA MR #: [id number] : 1955 Age/Sex: 65/F Req #: [id number] [facility] Physician: Ordered by: MALGORZATA CERVANTES DO Report #: [id number] Location: ER Room/Bed: Procedure: [id number] DX/CHEST SINGLE (PORTABLE) Exam Date: 05/09/20 Exam Time: 509 REPORT STATUS: Signed EXAMINATION: CHEST SINGLE (PORTABLE) INDICATION: wheezing [id number] COMPARISON: Radiograph dated 04/17/2020. FINDINGS: LUNGS: Unchanged prominent interstitial densities. Shallow lung volumes. No con solidation. PLEURA: No pleural effusion or pneumothorax. HEART AND MEDIASTINUM: The cardiomediastinal silhouette is unremarkable. IMPRESSION: No acute thoracic radiographic abnormality. Signed by: Lizzeth Nelson MD on 05/09/2020 5:41 AM Dictated By: LIZZETH NELSON MD 0 Transcribed By: SONAM on 05/09/20540 COPY TO: MALGORZATA CERVANTES DO Blood leukocytes automated count (number/volume) 2020-04-18 05:40:00 Test Item White Blood Count (test code = 6690-2) 5.51 4.8-10.8 [facility] count (number/volume)2020-04-18 05:40:00* Test Item Value Reference Range Interpretation Comments Red Blood Count (test code = 789-8) 3.01 3.6-5.1 [facility] measurement (moles/volume)2020-04-18 05:40:00* Test Item Value Reference Range Interpretation Comments Hemoglobin (test code = 51777-3) 9.0 12.0-16.0 [facility] CenterAutom[facility] blood hematocrit (volume fraction)2020-04-18 05:40:00* Test Item Value Reference Range Interpretation Comments Hematocrit (test code = 4544-3) 27.9 34.2-44.1 [facility] CenterAutom[facility] erythrocyte mean corpuscular [id number] 05:40:00* Test Item Value Reference Range Interpretation Comments Mean Corpuscular Volume (test code = 787-2) 92.7 81-99 [facility] CenterAutom[facility] erythrocyte mean corpuscular hemoglobin (mass per erythrocyte)2020-04-18 05:40:00* Test Item Value Reference Range Interpretation Comments Mean Corpuscular Hemoglobin (test code = 785-6) 29.9 28-32 [facility] Center[facility] erythrocyte mean corpuscular hemoglobin concentration measurement (mass/volume)2020-04-18 05:40:00* Test Item Value Reference Range Interpretation Comments Mean Corpuscular Hemoglobin Concent (test code = 786-4) 32.3 31-35 [facility] CenterRDW YhnUv-Okr7009-53-07 05:40:00* Test Item Value Reference Range Interpretation Comments Red Cell Distribution Width (test code = 31936-3) 15.7 11.7 -14.4 [facility] Center[facility] blood platelet count (count/volume)2020-04-18 05:40:00* Test Item Value Reference Range Interpretation Comments Platelet Count (test code = 777-3) 217 140-360 [facility] Center[facility] blood segmented neutrophil count as percentage of total wfkxhtcqkw0536-64-93 05:40:00* Test Item Value Reference Range Interpretation Comments Neutrophils (%) (Auto) (test code = 22683-8) 40.3 38.7-80.0 [facility] Center[facility] blood lymphocyte count as percentage ot total jnxmuphtfj8056-16-02 05:40:00* Test Item Value Reference Range Interpretation Comments Lymphocytes (%) (Auto) (test code = 736-9) 38.5 18.0-39.1 [facility] Center[facility] blood monocyte count as percentage of total gdwutzyboz3309-01-46 05:40:00* Test Item Value Reference Range Interpretation Comments Monocytes (%) (Auto) (test code = 5905-5) 13.6 4.4-11.3 [facility] CenterAutom[facility] blood eosinophil count as percentage of total hoxrqrtqdu6137-72-03 05:40:00* Test Item Value Reference Range Interpretation Comments Eosinophils (%) (Auto) (test code = 713-8) 6.5 0.0-6.0 [facility] Center[facility] blood basophil count as percentage of total bwpfmudgfm7800-75-43 05:40:00* Test Item Value Reference Range Interpretation Comments Basophils (%) (Auto) (test code = 706-2) 0.9 0.0-1.0 [facility] CenterFluoroscopic procedure less than one hour brjvylus7238-96-50 05:40:00* Test Item Value Reference Range Interpretation Comments IM GRANULOCYTES % (test code = IM GRANULOCYTES %) 0.2 0.0- 1.0 [facility] Center[facility] blood neutrophil count 2020-04-18 05:40:00* Test Item Value Reference Range Interpretation Comments Neutrophils # (Auto) (test code = 751-8) 2.2 2.1-6.9 [facility] Center[facility] lymphocytes count (number/volume) 2020-04-18 05:40:00* Test Item Value Reference Range Interpretation Comments Lymphocytes # (Auto) (test code = 97227-6) 2.1 1.0-3.2 [facility] CenterBlood monocytes automated count (number/volume)2020-04-18 05:40:00* Test Item Value Reference Range Interpretation Comments Monocytes # (Auto) (test code = 742-7) 0.8 0.2-0.8 [facility] CenterAutom[facility] blood eosinophil count 2020-04-18 05:40:00* Test Item Value Reference Range Interpretation Comments Eosinophils # (Auto) (test code = 711-2) 0.4 0.0-0.4 [facility] CenterAutom[facility] blood basophil count (count/volume)2020-04-18 05:40:00* Test Item Value Reference Range Interpretation Comments Basophils # (Auto) (test code = 704-7) 0.1 0.0-0.1 [facility] CenterFluoroscopic procedure less than one hour qxmbyiop8918-60-07 05:40:00* Test Item Value Reference Range Interpretation Comments Absolute Immature Granulocyte (auto (jasvir t code = Absolute Immature Granulocyte (auto) 0.01 0-0.1 [facility] CenterFluoroscopic procedure less than one hour tthkuwdd1231-74-26 05:40:00* Test Item Value Reference Range Interpretation Comments Differential Total Cells Counted (test code = Differen tial Total Cells Counted) 100 [facility] blood neutrophils/100 leukocytes 2020-04-18 05:40:00* Test Item Value Reference Range Interpretation Comments Neutrophils % (Manual) (test code = 84945-7) 50 40-74 [facility] blood lymphocytes/100 leukocytes 2020-04-18 05:40:00* Test Item Value Reference Range Interpretation Comments Lymphocytes % (Manual) (test code = 737-7) 31 19-48 [facility] blood monocytes/100 leukocytes 2020-04-18 05:40:00* Test Item Value Reference Range Interpretation Comments Monocytes % (Manual) (test code = 744-3) 15 3.4-9.0 [facility] blood eosinophil count as percentage of total wectochwgm7050-49-42 05:40:00* Test Item Value Reference Range Interpretation Comments Eosinophils % (Manual) (test code = 714-6) 4 0-7 [facility] CenterBlood platelets count by estimate (number/volume)2020-04-18 05:40:00* Test Item Value Reference Range Interpretation Comments Platelet Estimate (test code = 88341-2) ADEQUATE [facility] CenterPlatelet mjbsqxkjwb3322-20-24 05:40:00* Test Item Value Reference Range Interpretation Comments Platelet Morphology Comment (test code = 89441-1) NORMAL [facility] CenterBlood anisocytosis detection by light yiyquqbfgx8878-61-85 05:40:00* Test Item Value Reference Range Interpretation Comments Anisocytosis (test code = 702-1) SLIGHT [facility] CenterRBC rtpmufqchm4894-57-57 05:40:00* Test Item Value Reference Range Interpretation Comments Red Cell Morphology Comment (test code = 6742-1) NORMAL [facility] sodium measurement (moles/volume)2020-04-18 05:40:00* Test Item Value Reference Range Interpretation Comments Sodium Level (test code = 2951-2) 140 136-145 [facility] plasma potassium measurement (moles/volume)2020-04-18 05:40:00* Test Item Value Reference Range Interpretation Comments Potassium Level (test code = 2823-3) 3.8 3.5-5.1 [facility] plasma chloride measurement (moles/volume)2020-04-18 05:40:00* Test Item Value Reference Range Interpretation Comments Chloride Level (test code = 2075-0) 105 98-107 [facility] or plasma carbon dioxide, total measurement (moles/volume)2020-04-18 05:40:00* Test Item Value Reference Range Interpretation Comments Carbon Dioxide Level (test code = 2028-9) 27 22-29 [facility] or plasma anion zxb0125-35-71 05:40:00* Test Item Value Reference Range Interpretation Comments Anion Gap (test code = 87382-2) 11.8 8-16 [facility] plasma urea nitrogen measurement (mass/volume)2020-04-18 05:40:00* Test Item Value Reference Range Interpretation Comments Blood Urea Nitrogen (test code = 3094-0) < 5 7-26 [facility] or plasma creatinine measurement (mass/volume)2020-04-18 05:40:00* Test Item Value Reference Range Interpretation Comments Creatinine (test code = 2160-0) 0.65 0.57-1.11 [facility] or plasma urea nitrogen/creatinine mass ghulh7745-07-80 05:40:00* Test Item Value Reference Range Interpretation Comments BUN/Creatinine Ratio (test code = 3097-3) 8 6-25 [facility] CenterEstimated glomerular filtration rate (GFR) kuqjfhzjtefbe0606-83-95 05:40:00* Test Item Value Reference Range Interpretation Comments Estimat Glomerular Filtration Rate (test code = 678973505) > 60 >60 Ranges were taken from the National Kidney Disease Education Program and the [facility] literature.Reference ranges:60 or greater: Htoypw15-53 ( for 3 consecutive months): Chronic kidney disease 15 or less: Kidney failureBrownfield Regional Medical CenterGlucose qrkfgedktue5679-78-26 05:40:00* Test Item Value Reference Range Interpretation Comments Glucose Level (test code = ZJJ4311) 74 74-118 [facility] plasma calcium measurement (mass/volume)2020-04-18 05:40:00* Test Item Value Reference Range Interpretation Comments Calcium Level (test code = 69519-8) 8.1 8.4-10.2 [facility] plasma total bilirubin measurement (mass/volume)2020-04-18 05:40:00* Test Item Value Reference Range Interpretation Comments Total Bilirubin (test code = 1975-2) 0.3 0.2-1.2 [facility] CenterFluoroscopic procedure less than one hour fargfjih4771-17-68 05:40:00* Test Item Value Reference Range Interpretation Comments Aspartate Amino Transf (AST/SGOT) (test code = Aspartate Amino Transf (AST/SGOT)) 12 5-34 [facility] or plasma alanine aminotransferase measurement (enzymatic activity/volume)2020-04-18 05:40:00* Test Item Value Reference Range Interpretation Comments Alanine Aminotransferase (ALT/SGPT) (test code = 1742-6) < 6 0-55 [facility] or plasma protein measurement (mass/volume)2020-04-18 05:40:00* Test Item Value Reference Range Interpretation Comments Total Protein (test code = 2885-2) 5.7 6.5-8.1 [facility] plasma albumin measurement (mass/volume)2020-04-18 05:40:00* Test Item Value Reference Range Interpretation Comments Albumin (test code = 1751-7) 2.8 3.5-5.0 [facility] CenterPlasma globulin measurement (mass/volume) 2020-04-18 05:40:00* Test Item Value Reference Range Interpretation Comments Globulin (test code = 20545-1) 2.9 2.3-3.5 [facility]wood[facility] plasma albumin/globulin mass lrecs2121-71-00 05:40:00* Test Item Value Reference Range Interpretation Comments Albumin/Globulin Ratio (test code = 1759-0) 1.0 0.8-2.0 [facility] plasma alkaline phosphatase measurement (enzymatic activity/volume)2020-04-18 05:40:00* Test Item Value Reference Range Interpretation Comments Alkaline Phosphatase (test code = 6768-6) 79 40-150 [facility]wood[facility] plasma creatine kinase measurement (enzymatic activity/volume)2020-04-18 05:40:00* Test Item Value Reference Range Interpretation Comments Creatine Kinase (test code = 2157-6) 53 29-168 [facility]wooder[facility] or plasma creatine kinase MB measurement (mass/volume)2020-04-18 05:40:00* Test Item Value Reference Range Interpretation Comments Creatine Kinase MB (test code = 57765-7) 1.00 0-5.0 [facility] CenterTroponin I measurement by highly sensitive enzyme iiqzxqquhqf5811-16-48 05:40:00* Test Item Value Reference Range Interpretation Comments Troponin I (test code = 13598-6) < 0.001 0-0.300 [facility] CenterCHEST SINGLE (PORTABLE)2020-04-17 18:20:00 [facility] [address] [place] [address] Patient Name: VIRA MESSINA MR #: [id number] : 1955 Age/Sex: 64/F Req #: [id number] Adm Physician: Ordered by: Jie Bonilla MD Report #: [id number] Location: ER Room/Bed: Procedure: [id number] DX/CHEST S MARLINE (PORTABLE) Exam Date: 04/17/20 [...] 04/17/201820 COPY TO: JIE BONILLA MD BNP Iam-qCnk9522-74-06 18:09:00* Test Item Value Reference Range Interpretation Comments B-Type Natriuretic Peptide (test code = 13166-7) 12.6 0-100 [facility] SINGLE (PORTABLE)2020-03-31 20:27:00 [facility] [address] [place] [address] Patient Name: VIRA MESSINA MR #: [id number] : 1955 Age/Sex: 64/F Req #: [id number] Adm Physician: Ordered by: EMILIA ALANIS DO Report #: [id number] Location: ER Room/Bed: Procedure: [id number] DX/CHEST SIN GLE (PORTABLE) Exam Date: 03/31/20 [...] DO Fluoroscopic procedure less than one hour rponyeah7200-44-41 19:58:00* Test Item Value Reference Range Interpretation Comments Coronavirus (PCR) (test code = Coronavirus (PCR)) NOT DETECTED NOTD ETECTED SARS-CoV-2 PCRHologic Aptima SARS-CoV-2 assay is a nucleic amplification test in tended for the qualitative detection of RNA from SARS-CoV-2 from nasopharyngeal ([employer]) specimens. It is used under Emergency Use [...] repr at testing oc clinically indicated.Tesing performed by:[facility] [place] [address] [id number], Jc ovalles MD, PhDBrownfield Regional Medical CenterFluoroscopic procedure less than one hour daulidvv7739-80-96 19:58:00* Test Item Value Reference Range Interpretation Comments Coronavirus (PCR) (test code = Coronavirus (PCR)) NOT DETECTED NOTD ETECTED SARS-CoV-2 PCRHologic Aptima SARS-CoV-2 assay is a nucleic amplification test in tended for the qualitative detection of RNA from SARS-CoV-2 from nasopharyngeal ([employer]) specimens. It is used under Emergency Use [...] repr at testing oc clinically indicated.Tesing performed by:[facility] Services[address] [place] [address] [id number], Jc ovalles MD, PhDBrownfield [facility] Medical CenterBlridgeview [facility] leukocytes automated count (number/volume)2020-03-31 19:29:00* Test Item Value Reference Range Interpretation Comments White Blood Count (test code = 6690-2) 11.21 4.8-10.8 [facility] CenterBlridgeview [facility] erythrocytes automated count (number/volume)2020-03-31 19:29:00* Test Item Value Reference Range Interpretation Comments Red Blood Count (test code = 789-8) 3.89 3.6-5.1 [facility] CenterBlood hemoglobin measurement (moles/volume)2020-03-31 19:29:00* Test Item Value Reference Range Interpretation Comments Hemoglobin (test code = 79094-2) 10.9 12.0-16.0 [facility] CenterAutomated blood hematocrit (volume fraction)2020-03-31 19:29:00* Test Item Value Reference Range Interpretation Comments Hematocrit (test code = 4544-3) 34.4 34.2-44.1 [facility] CenterAutomated erythrocyte mean corpuscular fpfsas4538-22-37 19:29:00* Test Item Value Reference Range Interpretation Comments Mean Corpuscular Volume (test code = 787-2) 88.4 81-99 [facility] CenterAutomated erythrocyte mean corpuscular hemoglobin (mass per erythrocyte)2020-03-31 19:29:00* Test Item Value Reference Range Interpretation Comments Mean Corpuscular Hemoglobin (test code = 785-6) 28.0 28-32 [facility] CenterAutomated erythrocyte mean corpuscular hemoglobin concentration measurement (mass/volume)2020-03-31 19:29:00* Test Item Value Reference Range Interpretation Comments Mean Corpuscular Hemoglobin Concent (test code = 786-4) 31.7 31-35 [facility] CenterRDW GfoJo-Nec5287-80-19 19:29:00* Test Item Value Reference Range Interpretation Comments Red Cell Distribution Width (test code = 98641-8) 14.7 11.7 -14.4 [facility] CenterAutomated blood platelet count (count/volume)2020-03-31 19:29:00* Test Item Value Reference Range Interpretation Comments Platelet Count (test code = 777-3) 428 140-360 [facility] CenterAutomated blood segmented neutrophil count as percentage of total uowlnqlilc0742-17-86 19:29:00* Test Item Value Reference Range Interpretation Comments Neutrophils (%) (Auto) (test code = 49010-5) 68.4 38.7-80.0 [facility] CenterAutomated blood lymphocyte count as percentage ot total udthlyfepg6882-45-10 19:29:00* Test Item Value Reference Range Interpretation Comments Lymphocytes (%) (Auto) (test code = 736-9) 19.1 18.0-39.1 [facility] CenterAutomated blood monocyte count as percentage of total mjcqfptsaf5779-90-33 19:29:00* Test Item Value Reference Range Interpretation Comments Monocytes (%) (Auto) (test code = 5905-5) 9.5 4.4-11.3 [facility] CenterAutomated blood eosinophil count as percentage of total hhttucesiz4170-23-40 19:29:00* Test Item Value Reference Range Interpretation Comments Eosinophils (%) (Auto) (test code = 713-8) 2.2 0.0-6.0 [facility] CenterAutomated blood basophil count as percentage of total pwyhbzjeli2488-70-44 19:29:00* Test Item Value Reference Range Interpretation Comments Basophils (%) (Auto) (test code = 706-2) 0.3 0.0-1.0 [facility] CenterFluoroscopic procedure less than one hour pzwhrtrs1165-21-35 19:29:00* Test Item Value Reference Range Interpretation Comments IM GRANULOCYTES % (test code = IM GRANULOCYTES %) 0.5 0.0- 1.0 [facility] CenterAutomated blood neutrophil count 2020-03-31 19:29:00* Test Item Value Reference Range Interpretation Comments Neutrophils # (Auto) (test code = 751-8) 7.7 2.1-6.9 [facility] CenterBlood lymphocytes count (number/volume) 2020-03-31 19:29:00* Test Item Value Reference Range Interpretation Comments Lymphocytes # (Auto) (test code = 06136-6) 2.1 1.0-3.2 [facility] CenterBlridgeview [facility] medical center monocytes automated count (number/volume)2020-03-31 19:29:00* Test Item Value Reference Range Interpretation Comments Monocytes # (Auto) (test code = 742-7) 1.1 0.2-0.8 [facility] CenterAutomated blood eosinophil count 2020-03-31 19:29:00* Test Item Value Reference Range Interpretation Comments Eosinophils # (Auto) (test code = 711-2) 0.3 0.0-0.4 [facility] CenterAutomated blood basophil count (count/volume)2020-03-31 19:29:00* Test Item Value Reference Range Interpretation Comments Basophils # (Auto) (test code = 704-7) 0.0 0.0-0.1 [facility] CenterFluoroscopic procedure less than one hour muthwkys3312-26-58 19:29:00* Test Item Value Reference Range Interpretation Comments Absolute Immature Granulocyte (auto (jasvir t code = Absolute Immature Granulocyte (auto) 0.06 0-0.1 [facility] plasma sodium measurement (moles/volume)2020-03-31 19:29:00* Test Item Value Reference Range Interpretation Comments Sodium Level (test code = 2951-2) 135 136-145 [facility]wooderum or plasma potassium measurement (moles/volume)2020-03-31 19:29:00* Test Item Value Reference Range Interpretation Comments Potassium Level (test code = 2823-3) 4.0 3.5-5.1 [facility]wooder[facility] or plasma chloride measurement (moles/volume)2020-03-31 19:29:00* Test Item Value Reference Range Interpretation Comments Chloride Level (test code = 2075-0) 100 98-107 [facility]wooderum or plasma carbon dioxide, total measurement (moles/volume)2020-03-31 19:29:00* Test Item Value Reference Range Interpretation Comments Carbon Dioxide Level (test code = 2028-9) 24 22-29 [facility]wooderum or plasma anion bzu0160-50-75 19:29:00* Test Item Value Reference Range Interpretation Comments Anion Gap (test code = 72208-2) 15.0 8-16 [facility]wooder[facility] or plasma urea nitrogen measurement (mass/volume)2020-03-31 19:29:00* Test Item Value Reference Range Interpretation Comments Blood Urea Nitrogen (test code = 3094-0) < 5 7-26 [facility]wooder[facility] or plasma creatinine measurement (mass/volume)2020-03-31 19:29:00* Test Item Value Reference Range Interpretation Comments Creatinine (test code = 2160-0) 0.66 0.57-1.11 [facility]wooder[facility] or plasma urea nitrogen/creatinine mass gsqwg3519-76-87 19:29:00* Test Item Value Reference Range Interpretation Comments BUN/Creatinine Ratio (test code = 3097-3) 8 6-25 [facility] CenterEstimated glomerular filtration rate (GFR) sgbkemseauaqq9345-63-00 19:29:00* Test Item Value Reference Range Interpretation Comments Estimat Glomerular Filtration Rate (test code = 067361372) > 60 >60 Ranges were taken from the National Kidney Disease Education Program and the [facility] Foundation literature.Reference ranges:60 or greater: Hfxrmp36-58 ( for 3 consecutive months): Chronic kidney disease 15 or less: Kidney failureBrownfield Regional Medical CenterGlucose pyumvqmulqk1863-63-69 19:29:00* Test Item Value Reference Range Interpretation Comments Glucose Level (test code = DYX9512) 113 74-118 [facility]wooder[facility] or plasma calcium measurement (mass/volume)2020-03-31 19:29:00* Test Item Value Reference Range Interpretation Comments Calcium Level (test code = 13796-5) 9.0 8.4-10.2 [facility] CenterFluoroscopic procedure less than one hour ggfphdsr9677-51-05 19:29:00* Test Item Value Reference Range Interpretation Comments Lactic Acid Level (test code = Lactic Acid Level) 3.9 0.5- 2.0 Results [facility] on 03/31/20 by Bakari golden Read back and verified.[facility] or plasma total bilirubin measurement (mass/volume)2020-03-31 19:29:00* Test Item Value Reference Range Interpretation Comments Total Bilirubin (test code = 1975-2) 0.4 0.2-1.2 [facility] CenterFluoroscopic procedure less than one hour fzgbdman7217-25-09 19:29:00* Test Item Value Reference Range Interpretation Comments Aspartate Amino Transf (AST/SGOT) (test code = Aspartate Amino Transf (AST/SGOT)) 13 5-34 [facility]wooderum or plasma alanine aminotransferase measurement (enzymatic activity/volume)2020-03-31 19:29:00* Test Item Value Reference Range Interpretation Comments Alanine Aminotransferase (ALT/SGPT) (test code = 1742-6) < 6 0-55 [facility]wooderum or plasma protein measurement (mass/volume)2020-03-31 19:29:00* Test Item Value Reference Range Interpretation Comments Total Protein (test code = 2885-2) 6.8 6.5-8.1 [facility]wooder[facility] or plasma albumin measurement (mass/volume)2020-03-31 19:29:00* Test Item Value Reference Range Interpretation Comments Albumin (test code = 1751-7) 3.9 3.5-5.0 [facility] CenterPlasma globulin measurement (mass/volume) 2020-03-31 19:29:00* Test Item Value Reference Range Interpretation Comments Globulin (test code = 52198-9) 2.9 2.3-3.5 [facility]wooder[facility] or plasma albumin/globulin mass mdjof2510-70-55 19:29:00* Test Item Value Reference Range Interpretation Comments Albumin/Globulin Ratio (test code = 1759-0) 1.3 0.8-2.0 [facility]er[facility] or plasma alkaline phosphatase measurement (enzymatic activity/volume)2020-03-31 19:29:00* Test Item Value Reference Range Interpretation Comments Alkaline Phosphatase (test code = 6768-6) 80 40-150 [facility] CenterBNP Apl-rOmr1595-75-19 19:29:00* Test Item Value Reference Range Interpretation Comments B-Type Natriuretic Peptide (test code = 52501-5) 43.8 0-100 [facility]wooder[facility] or plasma creatine kinase measurement (enzymatic activity/volume)2020-03-31 19:29:00* Test Item Value Reference Range Interpretation Comments Creatine Kinase (test code = 2157-6) 47 29-168 [facility]wooder[facility] or plasma creatine kinase MB measurement (mass/volume)2020-03-31 19:29:00* Test Item Value Reference Range Interpretation Comments Creatine Kinase MB (test code = 75962-9) 1.20 0-5.0 [facility] CenterTroponin I measurement by highly sensitive enzyme mdownwiwlqy7254-10-89 19:29:00* Test Item Value Reference Range Interpretation Comments Troponin I (test code = 54175-2) < 0.001 0-0.300 [facility] CenterBlood qxkowku5465-05-31 19:29:00* Test Item Value Reference Range Interpretation Comments Blood Culture (test code = 07152252) NO GROWTH AFTER 24 HOURS [facility] CenterFluoroscopic procedure less than one hour cxeaxlvg2848-83-19 19:29:00* Test Item Value Reference Range Interpretation Comments Lactic Acid Level (test code = Lactic Acid Level) 3.9 0.5- 2.0 Results repeated and called to [place] at 2004 on 03/31/20 by Bakari golden Read back and verified.[facility] CenterBlood culture 2020-03-31 19:29:00* Test Item Value Reference Range Interpretation Comments Blood Culture (test code = 57848088) NO GROWTH AFTER 5 DAYS, FINAL REPORT [facility] WorthMODIFIED [facility]. JOVKJEJ4720-38-78 10:16:00 [facility] [address] [address] Patient Name: VIRA MESSINA MR #: [id number] : 1955 Age/Sex: 64/F Req #: [id number] Adm Physician: ALIE DUARTE MD Ordered by: Victoriano Hicks NP Rep ort #: [id number] Location: MED/SURG3 Room/B ed: 290-1 Procedure: [id number] DX/MODIFIED BA . SWALLOW Exam Date: 03/20/20 Exam Time: 1345 REPORT STATUS: Signed PROCEDURE: X-RAY MODIFIED BARIUM SWALLOW COMPARISON: None. INDICATION: Aspiration Radiation Details: Fluoroscopy time: 1.1 minutes Cumulative dose: 5.1 mGy DISCUSSION: Fluoroscopic examination was performed in conjunction with spee ch pathology during swallowing a variety of [...] Count (test code = 6690-2) 11.59 4.8-10.8 [facility] CenterBlridgeview le [facility] medical center erythrocytes automated count (number/volume)2020-03-21 07:05:00* Test Item Value Reference Range Interpretation Comments Red Blood Count (test code = 789-8) 3.10 3.6-5.1 [facility] CenterBlood hemoglobin measurement (moles/volume)2020-03-21 07:05:00* Test Item Value Reference Range Interpretation Comments Hemoglobin (test code = 90326-2) 8.6 12.0-16.0 [facility] CenterAutomated blood hematocrit (volume fraction)2020-03-21 07:05:00* Test Item Value Reference Range Interpretation Comments Hematocrit (test code = 4544-3) 27.5 34.2-44.1 [facility] CenterAutomated erythrocyte mean corpuscular sllipf4322-56-77 07:05:00* Test Item Value Reference Range Interpretation Comments Mean Corpuscular Volume (test code = 787-2) 88.7 81-99 [facility] CenterAutomated erythrocyte mean corpuscular hemoglobin (mass per erythrocyte)2020-03-21 07:05:00* Test Item Value Reference Range Interpretation Comments Mean Corpuscular Hemoglobin (test code = 785-6) 27.7 28-32 [facility] CenterAutomated erythrocyte mean corpuscular hemoglobin concentration measurement (mass/volume)2020-03-21 07:05:00* Test Item Value Reference Range Interpretation Comments Mean Corpuscular Hemoglobin Concent (test code = 786-4) 31.3 31-35 [facility] CenterRDW IvmCi-Atg6844-83-09 07:05:00* Test Item Value Reference Range Interpretation Comments Red Cell Distribution Width (test code = 08261-0) 14.8 11.7 -14.4 [facility] CenterAutomated blood platelet count (count/volume)2020-03-21 07:05:00* Test Item Value Reference Range Interpretation Comments Platelet Count (test code = 777-3) 281 140-360 [facility] CenterAutomated blood segmented neutrophil count as percentage of total esjloegekv6808-79-46 07:05:00* Test Item Value Reference Range Interpretation Comments Neutrophils (%) (Auto) (test code = 23253-2) 86.5 38.7-80.0 [facility] CenterAutomated blood lymphocyte count as percentage ot total rdelbenvfd1296-15-89 07:05:00* Test Item Value Reference Range Interpretation Comments Lymphocytes (%) (Auto) (test code = 736-9) 5.3 18.0-39.1 [facility] CenterAutomated blood monocyte count as percentage of total jfnvgytmnn3406-27-21 07:05:00* Test Item Value Reference Range Interpretation Comments Monocytes (%) (Auto) (test code = 5905-5) 7.4 4.4-11.3 [facility] CenterAutomated blood eosinophil count as percentage of total sdikgvxmck6772-28-75 07:05:00* Test Item Value Reference Range Interpretation Comments Eosinophils (%) (Auto) (test code = 713-8) 0.0 0.0-6.0 [facility] CenterAutomated blood basophil count as percentage of total kjtkccprel2707-00-23 07:05:00* Test Item Value Reference Range Interpretation Comments Basophils (%) (Auto) (test code = 706-2) 0.0 0.0-1.0 [facility] CenterFluoroscopic procedure less than one hour qwarxrzu9261-79-28 07:05:00* Test Item Value Reference Range Interpretation Comments IM GRANULOCYTES % (test code = IM GRANULOCYTES %) 0.8 0.0- 1.0 [facility] CenterAutomated blood neutrophil count 2020-03-21 07:05:00* Test Item Value Reference Range Interpretation Comments Neutrophils # (Auto) (test code = 751-8) 10.0 2.1-6.9 [facility] CenterBlood lymphocytes count (number/volume) 2020-03-21 07:05:00* Test Item Value Reference Range Interpretation Comments Lymphocytes # (Auto) (test code = 57516-5) 0.6 1.0-3.2 [facility] CenterBlood monocytes automated count (number/volume)2020-03-21 07:05:00* Test Item Value Reference Range Interpretation Comments Monocytes # (Auto) (test code = 742-7) 0.9 0.2-0.8 [facility] CenterAutomated blood eosinophil count 2020-03-21 07:05:00* Test Item Value Reference Range Interpretation Comments Eosinophils # (Auto) (test code = 711-2) 0.0 0.0-0.4 [facility] CenterAutomated blood basophil count (count/volume)2020-03-21 07:05:00* Test Item Value Reference Range Interpretation Comments Basophils # (Auto) (test code = 704-7) 0.0 0.0-0.1 [facility] CenterFluoroscopic procedure less than one hour fqqbatqd5068-62-07 07:05:00* Test Item Value Reference Range Interpretation Comments Absolute Immature Granulocyte (auto (jasvir t code = Absolute Immature Granulocyte (auto) 0.09 0-0.1 [facility]wooder[facility] or plasma sodium measurement (moles/volume)2020-03-21 07:05:00* Test Item Value Reference Range Interpretation Comments Sodium Level (test code = 2951-2) 136 136-145 [facility]wooderum or plasma potassium measurement (moles/volume)2020-03-21 07:05:00* Test Item Value Reference Range Interpretation Comments Potassium Level (test code = 2823-3) 4.0 3.5-5.1 [facility]wooderum or plasma chloride measurement (moles/volume)2020-03-21 07:05:00* Test Item Value Reference Range Interpretation Comments Chloride Level (test code = 2075-0) 101 98-107 [facility]wooderum or plasma carbon dioxide, total measurement (moles/volume)2020-03-21 07:05:00* Test Item Value Reference Range Interpretation Comments Carbon Dioxide Level (test code = 2028-9) 22 22-29 [facility]wooderum or plasma anion ozm8071-12-73 07:05:00* Test Item Value Reference Range Interpretation Comments Anion Gap (test code = 97533-3) 17.0 8-16 [facility]wooderum or plasma urea nitrogen measurement (mass/volume)2020-03-21 07:05:00* Test Item Value Reference Range Interpretation Comments Blood Urea Nitrogen (test code = 3094-0) 10 7-26 [facility]wooderum or plasma creatinine measurement (mass/volume)2020-03-21 07:05:00* Test Item Value Reference Range Interpretation Comments Creatinine (test code = 2160-0) 0.65 0.57-1.11 [facility]wooder[facility] or plasma urea nitrogen/creatinine mass kmthu2640-53-06 07:05:00* Test Item Value Reference Range Interpretation Comments BUN/Creatinine Ratio (test code = 3097-3) 15 6- [facility] CenterEstimated glomerular filtration rate (GFR) qaujfvyheffov2387-64-73 07:05:00* Test Item Value Reference Range Interpretation Comments Estimat Glomerular Filtration Rate (test code = 104266378) > 60 >60 Ranges were taken from the National Kidney Disease Education Program and the [facility] Kidney Foundation literature.Reference ranges:60 or greater: Xeikrs84-47 ( for 3 consecutive months): Chronic kidney disease 15 or less: Kidney failureBrownfield Regional Medical CenterGlucose ywxnuvljtqd7584-85-74 07:05:00* Test Item Value Reference Range Interpretation Comments Glucose Level (test code = DGT4026) 141 74-118 [facility]wood[facility] or plasma calcium measurement (mass/volume)2020-03-21 07:05:00* Test Item Value Reference Range Interpretation Comments Calcium Level (test code = 56997-5) 8.6 8.4-10.2 [facility]wooderum or plasma total bilirubin measurement (mass/volume)2020-03-21 07:05:00* Test Item Value Reference Range Interpretation Comments Total Bilirubin (test code = 1975-2) 0.2 0.2-1.2 [facility] CenterFluoroscopic procedure less than one hour ifkpnzxs9977-64-31 07:05:00* Test Item Value Reference Range Interpretation Comments Aspartate Amino Transf (AST/SGOT) (test code = Aspartate Amino Transf (AST/SGOT)) 9 5-34 [facility]wooderum or plasma alanine aminotransferase measurement (enzymatic activity/volume)2020-03-21 07:05:00* Test Item Value Reference Range Interpretation Comments Alanine Aminotransferase (ALT/SGPT) (test code = 1742-6) < 6 0-55 [facility]wooderum or plasma protein measurement (mass/volume)2020-03-21 07:05:00* Test Item Value Reference Range Interpretation Comments Total Protein (test code = 2885-2) 6.2 6.5-8.1 [facility]wooderum or plasma albumin measurement (mass/volume)2020-03-21 07:05:00* Test Item Value Reference Range Interpretation Comments Albumin (test code = 1751-7) 3.5 3.5-5.0 [facility] CenterPlasma globulin measurement (mass/volume) 2020-03-21 07:05:00* Test Item Value Reference Range Interpretation Comments Globulin (test code = 48517-3) 2.7 2.3-3.5 [facility] albumin/globulin mass hwrit0475-35-64 07:05:00* Test Item Value Reference Range Interpretation Comments Albumin/Globulin Ratio (test code = 1759-0) 1.3 0.8-2.0 [facility]wood[facility] or plasma alkaline phosphatase measurement (enzymatic activity/volume)2020-03-21 07:05:00* Test Item Value Reference Range Interpretation Comments Alkaline Phosphatase (test code = 6768-6) 61 40-150 [facility] CenterPhosphorus avxykuyvjii8286-80-41 06:17:00 * Test Item Value Reference Range Interpretation Comments Phosphorus Level (test code = TSB6301) 3.8 2.3-4.7 [facility]wood[facility] or plasma magnesium measurement (mass/volume)2020-03-20 06:17:00* Test Item Value Reference Range Interpretation Comments Magnesium Level (test code = 06002-2) 1.8 1.3-2.1 [facility] or plasma thyrotropin measurement by detection limit <= 0.005 miu/l (units/volume)2020-03-20 06:17:00* Test Item Value Reference Range Interpretation Comments Thyroid Stimulating Hormone (TSH) (test code = 75277-4) 0.395 0.350-4.940 [facility] CenterPhosphorus wexqrrrwzvm4814-72-39 06:17:00 * Test Item Value Reference Range Interpretation Comments Phosphorus Level (test code = SEE0103) 3.8 2.3-4.7 [facility] plasma magnesium measurement (mass/volume)2020-03-20 06:17:00* Test Item Value Reference Range Interpretation Comments Magnesium Level (test code = 23589-9) 1.8 1.3-2.1 [facility] or plasma thyrotropin measurement by detection limit <= 0.005 miu/l (units/volume)2020-03-20 06:17:00* Test Item Value Reference Range Interpretation Comments Thyroid Stimulating Hormone (TSH) (test code = 68302-4) 0.395 0.350-4.940 [facility] CenterPhosphorus rlhhuicyzyq3072-72-52 06:17:00 * Test Item Value Reference Range Interpretation Comments Phosphorus Level (test code = INM2243) 3.8 2.3-4.7 [facility] or plasma magnesium measurement (mass/volume)2020-03-20 06:17:00* Test Item Value Reference Range Interpretation Comments Magnesium Level (test code = 96266-8) 1.8 1.3-2.1 [facility] or plasma thyrotropin measurement by detection limit <= 0.005 miu/l (units/volume)2020-03-20 06:17:00* Test Item Value Reference Range Interpretation Comments Thyroid Stimulating Hormone (TSH) (test code = 79422-6) 0.395 0.350-4.940 [facility] CenterCT CHEST IL0347-01-63 17:36:00 [facility] [address] [place] [address] Patient Name: VIRA MESSINA MR #: [id number] : 1955 Age/Sex: 64/F Req #: [id number] Adm Physician: ALIE DUARTE MD Ordered by: SONNY MEDRANO [employer] Report #: [id number] Location: MED/SURG3 Room/Bed: 290-1 Procedure: [id number] CT/CT CHEST WO Exam Date: 03/19/20 Exam Time: 1659 REPORT STATUS: Signed EXAM: CT Chest WITHOUT con trast INDICATION: Pneumonia, +SOB x 1 week COMPARISON: Multiple prior est radiographs including most recent on 03/18/2020. [...] SONAM on 03/19/201749 COPY TO: SONNY MEDRANO NP Serum or plasma creatine kinase measurement (enzymatic activity/volume) 2020-03-19 16:34:00* Test Item Value Reference Range Interpretation Comments Creatine Kinase (test code = 2157-6) 61 29-168 [facility]wood[facility] or plasma creatine kinase MB measurement (mass/volume)2020-03-19 16:34:00* Test Item Value Reference Range Interpretation Comments Creatine Kinase MB (test code = 18728-2) 0.70 0-5.0 [facility] CenterTroponin I measurement by highly sensitive enzyme qorqcksgwnb9887-58-92 16:34:00* Test Item Value Reference Range Interpretation Comments Troponin I (test code = 16382-9) 0.002 0-0.300 [facility] CenterCHEST SINGLE (PORTABLE)2020-03-19 00:29:00 [facility] [address] [address] Patient Name: VIRA MESSINA MR #: [id number] : 1955 Age/Sex: 64/F Req #: [id number] Adm Physician: Ordered by: JC DYER MD Report #: [id number] Location: ER Room/Bed: Procedure: [id number] DX/CHEST SINGLE (PORTABLE) Exam Date: 03/18/20 Exam [...] COPY TO: JC DYER MD Urine color lbgouoqhhpdvk2905-79-98 00:25:00* Test Item Value Reference Range Interpretation Comments Urine Color (test code = 5778-6) YELLOW YELLOW [facility] vpklxim6607-95-50 00:25:00* Test Item Value Reference Range Interpretation Comments Urine Clarity (test code = 90338-3) CLEAR CLEAR [facility]woodpecific gravity of Urine by Test strip 2020-03-19 00:25:00* Test Item Value Reference Range Interpretation Comments Urine Specific Terreton (test code = 5811-5) 1.010 1.010-1.02 5 [facility] CenterUrine pH measurement by automated test gufko7348-78-65 00:25:00* Test Item Value Reference Range Interpretation Comments Urine pH (test code = 95496-3) 6 5-7 [facility] CenterUrine leukocyte esterase detection by sbisdjoq4513-84-06 00:25:00* Test Item Value Reference Range Interpretation Comments Urine Leukocyte Esterase (test code = 5799-2) NEGATIVE NEGATIVE [facility] CenterUrine nitrite tlnhsxump8872-62-67 00:25:00* Test Item Value Reference Range Interpretation Comments Urine Nitrite (test code = 99523-2) NEGATIVE NEGATIVE [facility] CenterUrine protein measurement by test strip (mass/volume)2020-03-19 00:25:00* Test Item Value Reference Range Interpretation Comments Urine Protein (test code = 5804-0) NEGATIVE NEGATIVE [facility] CenterUrine glucose flhqhrkww6324-92-81 00:25:00* Test Item Value Reference Range Interpretation Comments Urine Glucose (UA) (test code = 2349-9) NEGATIVE NEGATIVE [facility] CenterUrine ketones detection by automated test zkpuz9305-96-18 00:25:00* Test Item Value Reference Range Interpretation Comments Urine Ketones (test code = 22706-2) NEGATIVE NEGATIVE [facility] CenterUrine urobilinogen measurement by test strip (mass/volume)2020-03-19 00:25:00* Test Item Value Reference Range Interpretation Comments Urine Urobilinogen (test code = 70187-2) 0.2 0.2-1 [facility] CenterUrine total bilirubin measurement (mass/volume)2020-03-19 00:25:00* Test Item Value Reference Range Interpretation Comments Urine Bilirubin (test code = 1978-6) NEGATIVE NEGATIVE [facility] CenterUrine erythrocytes hhqxwlmvi0527-58-70 00:25:00* Test Item Value Reference Range Interpretation Comments Urine Blood (test code = 03827-7) TRACE NEGATIVE [facility] CenterAutomated urine sediment leukocyte count by microscopy (number/high power field)2020-03-19 00:25:00* Test Item Value Reference Range Interpretation Comments Urine WBC (test code = 5821-4) 0-5 0-5 [facility] CenterErythrocytes detection in urine sediment by light hycpbyqyhx7489-66-20 00:25:00* Test Item Value Reference Range Interpretation Comments Urine RBC (test code = 58163-3) 0-5 0-5 [facility] CenterBacteria detection in urine sediment by light yhjiltlnth0628-78-20 00:25:00* Test Item Value Reference Range Interpretation Comments Urine Bacteria (test code = 71297-4) RARE NONE [facility] CenterEpithelial cells detection in urine sediment by light uotdlnhhgk7983-48-45 00:25:00* Test Item Value Reference Range Interpretation Comments Urine Epithelial Cells (test code = 01411-5) FEW NONE [facility] CenterUrine color litjxndlconfq9785-05-07 00:25:00* Test Item Value Reference Range Interpretation Comments Urine Color (test code = 5778-6) YELLOW YELLOW [facility] CenterUrine vctgccv5979-44-89 00:25:00* Test Item Value Reference Range Interpretation Comments Urine Clarity (test code = 78725-3) CLEAR CLEAR [facility]wood[facility] gravity of Urine by Test strip 2020-03-19 00:25:00* Test Item Value Reference Range Interpretation Comments Urine Specific Terreton (test code = 5811-5) 1.010 1.010-1.02 5 [facility] CenterUrine pH measurement by automated test pudry7577-96-78 00:25:00* Test Item Value Reference Range Interpretation Comments Urine pH (test code = 80098-1) 6 5-7 [facility] CenterUrine leukocyte esterase detection by tcyokyrn0551-51-23 00:25:00* Test Item Value Reference Range Interpretation Comments Urine Leukocyte Esterase (test code = 5799-2) NEGATIVE NEGATIVE [facility] CenterUrine nitrite xqtwnlsoc4079-22-47 00:25:00* Test Item Value Reference Range Interpretation Comments Urine Nitrite (test code = 58662-6) NEGATIVE NEGATIVE [facility] CenterUrine protein measurement by test strip (mass/volume)2020-03-19 00:25:00* Test Item Value Reference Range Interpretation Comments Urine Protein (test code = 5804-0) NEGATIVE NEGATIVE [facility] CenterUrine glucose wypjabqzv6160-09-00 00:25:00* Test Item Value Reference Range Interpretation Comments Urine Glucose (UA) (test code = 2349-9) NEGATIVE NEGATIVE [facility] CenterUrine ketones detection by automated test ysjrt8688-88-83 00:25:00* Test Item Value Reference Range Interpretation Comments Urine Ketones (test code = 62822-8) NEGATIVE NEGATIVE [facility] CenterUrine urobilinogen measurement by test strip (mass/volume)2020-03-19 00:25:00* Test Item Value Reference Range Interpretation Comments Urine Urobilinogen (test code = 01530-7) 0.2 0.2-1 [facility] CenterUrine total bilirubin measurement (mass/volume)2020-03-19 00:25:00* Test Item Value Reference Range Interpretation Comments Urine Bilirubin (test code = 1978-6) NEGATIVE NEGATIVE [facility] CenterUrine erythrocytes gmoiptrfs7190-11-05 00:25:00* Test Item Value Reference Range Interpretation Comments Urine Blood (test code = 58908-4) TRACE NEGATIVE [facility] CenterAutomated urine sediment leukocyte count by microscopy (number/high power field)2020-03-19 00:25:00* Test Item Value Reference Range Interpretation Comments Urine WBC (test code = 5821-4) 0-5 0-5 [facility] CenterErythrocytes detection in urine sediment by light oebvfnnwzd3874-66-97 00:25:00* Test Item Value Reference Range Interpretation Comments Urine RBC (test code = 25860-6) 0-5 0-5 [facility] CenterBacteria detection in urine sediment by light gxznpblvfo9003-49-95 00:25:00* Test Item Value Reference Range Interpretation Comments Urine Bacteria (test code = 14251-1) RARE NONE [facility] CenterEpithelial cells detection in urine sediment by light pimjoyaqpy5364-92-33 00:25:00* Test Item Value Reference Range Interpretation Comments Urine Epithelial Cells (test code = 76140-0) FEW NONE [facility] CenterUrine color nuchylqetyhxv9195-97-52 00:25:00* Test Item Value Reference Range Interpretation Comments Urine Color (test code = 5778-6) YELLOW YELLOW [facility] CenterUrine masozkn9629-94-15 00:25:00* Test Item Value Reference Range Interpretation Comments Urine Clarity (test code = 77445-6) CLEAR CLEAR [facility]wood[facility] gravity of Urine by Test strip 2020-03-19 00:25:00* Test Item Value Reference Range Interpretation Comments Urine Specific Terreton (test code = 5811-5) 1.010 1.010-1.02 5 [facility] CenterUrine pH measurement by automated test alliz4143-74-56 00:25:00* Test Item Value Reference Range Interpretation Comments Urine pH (test code = 80303-2) 6 5-7 [facility] CenterUrine leukocyte esterase detection by tuktvqfh9409-61-92 00:25:00* Test Item Value Reference Range Interpretation Comments Urine Leukocyte Esterase (test code = 5799-2) NEGATIVE NEGATIVE [facility] CenterUrine nitrite cyblokveu8862-65-06 00:25:00* Test Item Value Reference Range Interpretation Comments Urine Nitrite (test code = 37218-5) NEGATIVE NEGATIVE [facility] CenterUrine protein measurement by test strip (mass/volume)2020-03-19 00:25:00* Test Item Value Reference Range Interpretation Comments Urine Protein (test code = 5804-0) NEGATIVE NEGATIVE [facility] CenterUrine glucose cetpcxygt3679-81-77 00:25:00* Test Item Value Reference Range Interpretation Comments Urine Glucose (UA) (test code = 2349-9) NEGATIVE NEGATIVE [facility] CenterUrine ketones detection by automated test ewxvq0661-40-76 00:25:00* Test Item Value Reference Range Interpretation Comments Urine Ketones (test code = 40736-9) NEGATIVE NEGATIVE [facility] CenterUrine urobilinogen measurement by test strip (mass/volume)2020-03-19 00:25:00* Test Item Value Reference Range Interpretation Comments Urine Urobilinogen (test code = 31778-2) 0.2 0.2-1 [facility] CenterUrine total bilirubin measurement (mass/volume)2020-03-19 00:25:00* Test Item Value Reference Range Interpretation Comments Urine Bilirubin (test code = 1978-6) NEGATIVE NEGATIVE [facility] CenterUrine erythrocytes bhsbxgbtl5239-24-80 00:25:00* Test Item Value Reference Range Interpretation Comments Urine Blood (test code = 59922-1) TRACE NEGATIVE [facility] CenterAutomated urine sediment leukocyte count by microscopy (number/high power field)2020-03-19 00:25:00* Test Item Value Reference Range Interpretation Comments Urine WBC (test code = 5821-4) 0-5 0-5 [facility] CenterErythrocytes detection in urine sediment by light dymcehwvzi8033-22-74 00:25:00* Test Item Value Reference Range Interpretation Comments Urine RBC (test code = 75485-2) 0-5 0-5 [facility] CenterBacteria detection in urine sediment by light qxaixjlpfm4039-29-58 00:25:00* Test Item Value Reference Range Interpretation Comments Urine Bacteria (test code = 61707-6) RARE NONE [facility] CenterEpithelial cells detection in urine sediment by light ridpvzdpcy5737-18-21 00:25:00* Test Item Value Reference Range Interpretation Comments Urine Epithelial Cells (test code = 46879-7) FEW NONE [facility] CenterFluoroscopic procedure less than one hour uhgktzti7694-89-17 22:45:00* Test Item Value Reference Range Interpretation [...] collected from individuals suspected of COVID-19 by [facility] healthcare provider. This test has not been [...] from individuals suspected of COVID-19 [facility]. This test has not been Food [...] EUA is revoked under 564(g) of the ACT.[facility] CenterFluoroscopic procedure less than one hour duration 2020-03-18 22:22:00* Test Item Value Reference Range Interpretation Comments Lactic Acid Level (test code = Lactic Acid Level) 1.5 0.5- 2.0 [facility] CenterBlood szgxczq4449-66-61 22:22:00* Test Item Value Reference Range Interpretation Comments Blood Culture (test code = 13210888) NO GROWTH AFTER 48 HOURS [facility] CenterB-TYPE NATRIURETIC OTDAOET1334-92-23 04:42:00* Test Item Value Reference Range Interpretation Comments B-TYPE NATRIURETIC PEPTIDE (test code = BNP) 36.08 pgram/mL 0-100 N COVID 19 INHOUSE YE5765-74-00 03:46:00* Test Item Value Reference Range Interpretation Comments COVID 19 INHOUSE AG (test code = TLLQO38PUGM) NEGATIVE BASIC METABOLIC MLYPJ7445-66-56 03:41:00* Test Item Value Reference Range Interpretation [...] code = CA) 8.7 mg/dL 8.5-10.1 N GLBTLLIB-N1260-04-04 03:41:00* Test Item Value Reference Range Interpretation Comments TROPONIN-I (test code = TROPI) <0.015 ng/mL 0-0.045 N - XR CHEST 1 [id number] 03:29:00 FAX: Ari Moreno DO [phone] [place]: St: REG FAX: Roshan Petty DO Name: VIRA MESSINA [facility] : 1955 Age/S: 64/F [address] [facility] Unit #: [id number] Loc: [place] [address] Phys: Roshan Petty DO Acct: [id number] Dis Date: Status: REG ER PHONE #: [phone] Exam Date: 03/16/2020314 FAX #: [phone] Reason: CHEST PAIN EXAMS: CPT CODE: [id number] XR CHEST 1 V 40669 EXAM: - XR CHEST 1 V COMPARISON: [...] Fabrizio 1 Orig Print D/T: S: 03/16/2020 (8799) PAGE 1 Signed Report CBC W/O DIFF [...] MPV) 9.4 fL 6.7-11.0 N CBC W/O HQPL8551-07-77 03:07:00* Test Item Value Reference Range Interpretation [...] code = MPV) fL 6.7-11.0 B-TYPE NATRIURETIC EPSYGID1620-87-21 14:27:00* Test Item Value Reference Range Interpretation Comments B-TYPE NATRIURETIC PEPTIDE (test code = BNP) 110.41 pgram/mL 0-100 H Coronavirus 2019 nCoV Vnqydst3788-21-49 14:21:00* Test Item Value Reference Range Interpretation Comments Coronavirus 2019 nCoV Bedside (test code = SLEAF12YEWHT) Negative Is patient requiring admission or transfer? YIndication for rapid COVID-19 testi ng: Mod Clinical SuspicionLACTIC ACID 2020-01-27 13:55:00* Test Item Value Reference Range Interpretation Comments LACTIC ACID (test code = LACT) 2.7 mmol/L 0.4-1.9 HH Results called to AUDI [id number] V.LAB.OA 01/27/20 1354Critical results verified and read back by Nurse? Y BASIC METABOLIC ETEQQ4872-37-52 13:44:00* Test Item Value Reference Range Interpretation [...] CA) 9.1 mg/dL 8.5-10.1 N HEPATIC FUNCTION UFMRV7473-15-70 13:44:00* Test Item Value Reference Range Interpretation [...] code = LDH) 171 IUnit/L 84-246 N YSSBAL7437-89-94 13:44:00* Test Item Value Reference Range Interpretation Comments LIPASE (test code = LIP) 35 U/L 73.0-393.0 L VOEFBWUC-P6196-96-17 13:44:00* Test Item Value Reference Range Interpretation Comments TROPONIN-I (test code = TROPI) <0.015 ng/mL 0-0.045 N YZSWYVHW0655-97-88 13:44:00* Test Item Value Reference Range Interpretation Comments FERRITIN (test code = ASHOK) 16 ng/mL 8-388 N - XR CHEST 1 Z5088-66-95 13:41:00 FAX: Ari Moreno DO [phone] [place]: St: [facility] FAX: Roshan Petty DO Name: VIRA MESSINA [facility] : 1955 Age/S: 64/F [address] Unit #: [id number] Loc: [place] [address] Phys: Roshan Petty DO Acct: [id number] Dis Date: Status: REG ER PHONE #: [phone] Exam Date: 01/27/2020 1325 FAX #: [phone] Reason: SHORTNESS OF BREATH EXAMS: CPT CODE: [id number] XR CHEST 1 V 35995 REASON FOR EXAM: SHORTNESS OF BREATH Exam Order Date: 01/27/2020 12:31 PM Ordering M.James: Roshan Petty DO PROCEDURE: - XR CHEST [...] IMPRESSION: No acute cardiopulmonary proces s. Location: [facility] at 1341 Reported and signed by: Isaiah Archuleta MD CC: Ari Carmichael; Roshan Petty DO Technologist: RT ALESSIO(R) Trnscrd Shama ate/Time/By: 01/27/2020 (4977) : By: [email or web address] Orig Print D/T: S: 01/10 (5427) PAGE 1 Signed Ken bertrand C-JDUJB5026-31WAWXX0670-37-25 13:34:00* Test Item Value Reference Range Interpretation Comments D-DIMER (test code = DDIMER) 973.00 ng/mLFEU 0-500 HH Results called to [id number] by VTedLABHAL 01/27/20 1333Critical results verified and [...] skin infections -Liver cirrhosis - BASIC METABOLIC PKNRM0002-18-87 13:33:00* Test Item Value Reference Range Interpretation [...] code = CA) mg/dL 8.5-10.1 HEPATIC FUNCTION ELZXC5900-67-93 13:33:00* Test Item Value Reference Range Interpretation [...] DEHYDROGENASE(LDH) (test code = LDH) IUnit/L 84-246 ONMTHQ5427-35-18 13:33:00* Test Item Value Reference Range Interpretation Comments LIPASE (test code = LIP) U/L 73.0-393.0 QXEIUQLC-O0956-30-17 13:33:00* Test Item Value Reference Range Interpretation Comments TROPONIN-I (test code = TROPI) ng/mL 0-0.045 KBYPQHVT5079-69-10 13:33:00* Test Item Value Reference Range Interpretation Comments FERRITIN (test code = ASHOK) ng/mL 8-388 C REACTIVE EAFAXIL9193-72-60 13:33:00* Test Item Value Reference Range Interpretation Comments C REACTIVE PROTEIN (test code = CRP) <0.29 mg/dL 0-0.3 N CBC W/AUTO GSKV1048-60-86 13:15:00* Test Item Value Reference Range Interpretation [...] K/mm3 0.0-0.1 N CHEST SINGLE (PORTABLE)2020-01-26 23:17:00 [address] [place] [address] Patient Name: VIRA MESSINA MR #: [id number] : 1955 Age/Sex: 64/F Req #: [id number] Adm Physician: Ordered by: MALGORZATA CERVANTES DO Report #: [id number] Location: ER Room/Bed: Procedure: [id number] DX/CHEST SINGLE (PORTABLE) Exam Date: 01/26/20 Exam [...] Count (test code = 6690-2) 13.71 4.8-10.8 [facility] CenterBlood erythrocytes automated count (number/volume)2020-01-26 22:41:00* Test Item Value Reference Range Interpretation Comments Red Blood Count (test code = 789-8) 3.65 3.6-5.1 [facility] CenterBlood hemoglobin measurement (moles/volume)2020-01-26 22:41:00* Test Item Value Reference Range Interpretation Comments Hemoglobin (test code = 09166-2) 10.6 12.0-16.0 [facility] CenterAutomated blood hematocrit (volume fraction)2020-01-26 22:41:00* Test Item Value Reference Range Interpretation Comments Hematocrit (test code = 4544-3) 32.6 34.2-44.1 [facility] CenterAutomated erythrocyte mean corpuscular zvzqvr5719-93-17 22:41:00* Test Item Value Reference Range Interpretation Comments Mean Corpuscular Volume (test code = 787-2) 89.3 81-99 [facility] CenterAutomated erythrocyte mean corpuscular hemoglobin (mass per erythrocyte)2020-01-26 22:41:00* Test Item Value Reference Range Interpretation Comments Mean Corpuscular Hemoglobin (test code = 785-6) 29.0 28-32 [facility] CenterAutomated erythrocyte mean corpuscular hemoglobin concentration measurement (mass/volume)2020-01-26 22:41:00* Test Item Value Reference Range Interpretation Comments Mean Corpuscular Hemoglobin Concent (test code = 786-4) 32.5 31-35 [facility] CenterRDW NlwIp-Pdu4869-72-16 22:41:00* Test Item Value Reference Range Interpretation Comments Red Cell Distribution Width (test code = 80456-9) 15.2 11.7 -14.4 [facility] CenterAutomated blood platelet count (count/volume)2020-01-26 22:41:00* Test Item Value Reference Range Interpretation Comments Platelet Count (test code = 777-3) 270 140-360 [facility] CenterAutomated blood segmented neutrophil count as percentage of total awgcvaeuwj4830-72-50 22:41:00* Test Item Value Reference Range Interpretation Comments Neutrophils (%) (Auto) (test code = 19690-1) 73.6 38.7-80.0 [facility] CenterAutomated blood lymphocyte count as percentage ot total ebgkznbwmt5225-14-79 22:41:00* Test Item Value Reference Range Interpretation Comments Lymphocytes (%) (Auto) (test code = 736-9) 18.2 18.0-39.1 [facility] CenterAutomated blood monocyte count as percentage of total aqseigcpkl0583-37-50 22:41:00* Test Item Value Reference Range Interpretation Comments Monocytes (%) (Auto) (test code = 5905-5) 6.3 4.4-11.3 [facility] CenterAutomated blood eosinophil count as percentage of total rmqbkhfvdo0555-66-44 22:41:00* Test Item Value Reference Range Interpretation Comments Eosinophils (%) (Auto) (test code = 713-8) 1.0 0.0-6.0 [facility] CenterAutomated blood basophil count as percentage of total qhnwcdxsxg6353-06-26 22:41:00* Test Item Value Reference Range Interpretation Comments Basophils (%) (Auto) (test code = 706-2) 0.4 0.0-1.0 [facility] CenterFluoroscopic procedure less than one hour mrqxtact5532-12-10 22:41:00* Test Item Value Reference Range Interpretation Comments IM GRANULOCYTES % (test code = IM GRANULOCYTES %) 0.5 0.0- 1.0 [facility] CenterAutomated blood neutrophil count 2020-01-26 22:41:00* Test Item Value Reference Range Interpretation Comments Neutrophils # (Auto) (test code = 751-8) 10.1 2.1-6.9 [facility] CenterBlood lymphocytes count (number/volume) 2020-01-26 22:41:00* Test Item Value Reference Range Interpretation Comments Lymphocytes # (Auto) (test code = 60481-8) 2.5 1.0-3.2 [facility] CenterBlood monocytes automated count (number/volume)2020-01-26 22:41:00* Test Item Value Reference Range Interpretation Comments Monocytes # (Auto) (test code = 742-7) 0.9 0.2-0.8 [facility] CenterAutomated blood eosinophil count 2020-01-26 22:41:00* Test Item Value Reference Range Interpretation Comments Eosinophils # (Auto) (test code = 711-2) 0.1 0.0-0.4 [facility] CenterAutomated blood basophil count (count/volume)2020-01-26 22:41:00* Test Item Value Reference Range Interpretation Comments Basophils # (Auto) (test code = 704-7) 0.1 0.0-0.1 [facility] CenterFluoroscopic procedure less than one hour fsxbfqsl2850-67-16 22:41:00* Test Item Value Reference Range Interpretation Comments Absolute Immature Granulocyte (auto (ajsvir t code = Absolute Immature Granulocyte (auto) 0.07 0-0.1 [facility] sodium measurement (moles/volume)2020-01-26 22:41:00* Test Item Value Reference Range Interpretation Comments Sodium Level (test code = 2951-2) 132 136-145 [facility]wooderum or plasma potassium measurement (moles/volume)2020-01-26 22:41:00* Test Item Value Reference Range Interpretation Comments Potassium Level (test code = 2823-3) 4.0 3.5-5.1 [facility]wooder[facility] or plasma chloride measurement (moles/volume)2020-01-26 22:41:00* Test Item Value Reference Range Interpretation Comments Chloride Level (test code = 2075-0) 97 98-107 [facility]wooderum or plasma carbon dioxide, total measurement (moles/volume)2020-01-26 22:41:00* Test Item Value Reference Range Interpretation Comments Carbon Dioxide Level (test code = 2028-9) 27 22-29 [facility]wooderum or plasma anion cyx4117-30-05 22:41:00* Test Item Value Reference Range Interpretation Comments Anion Gap (test code = 88445-1) 12.0 8-16 [facility]wooderum or plasma urea nitrogen measurement (mass/volume)2020-01-26 22:41:00* Test Item Value Reference Range Interpretation Comments Blood Urea Nitrogen (test code = 3094-0) 8 7-26 [facility]wood[facility] or plasma creatinine measurement (mass/volume)2020-01-26 22:41:00* Test Item Value Reference Range Interpretation Comments Creatinine (test code = 2160-0) 0.69 0.57-1.11 [facility]wood[facility] or plasma urea nitrogen/creatinine mass ujmjk5326-53-92 22:41:00* Test Item Value Reference Range Interpretation Comments BUN/Creatinine Ratio (test code = 3097-3) 12 6-25 [facility] CenterEstimated glomerular filtration rate (GFR) uayzadtkwwmuw4127-42-94 22:41:00* Test Item Value Reference Range Interpretation Comments Estimat Glomerular Filtration Rate (test code = 406814901) > 60 >60 Ranges were taken from the National Kidney Disease Education Program and the [facility] literature.Reference ranges:60 or greater: Selwxb80-31 ( for 3 consecutive months): Chronic kidney disease 15 or less: Kidney failureBrownfield [facility] Medical CenterGlucose ounwzqyvnqo5759-34-40 22:41:00* Test Item Value Reference Range Interpretation Comments Glucose Level (test code = CQD8394) 100 74-118 [facility]wooder[facility] or plasma calcium measurement (mass/volume)2020-01-26 22:41:00* Test Item Value Reference Range Interpretation Comments Calcium Level (test code = 58375-3) 8.8 8.4-10.2 [facility]wooder[facility] or plasma total bilirubin measurement (mass/volume)2020-01-26 22:41:00* Test Item Value Reference Range Interpretation Comments Total Bilirubin (test code = 1975-2) 0.2 0.2-1.2 [facility] CenterFluoroscopic procedure less than one hour scqvjbxf8907-48-40 22:41:00* Test Item Value Reference Range Interpretation Comments Aspartate Amino Transf (AST/SGOT) (test code = Aspartate Amino Transf (AST/SGOT)) 17 5-34 [facility]wooderum or plasma alanine aminotransferase measurement (enzymatic activity/volume)2020-01-26 22:41:00* Test Item Value Reference Range Interpretation Comments Alanine Aminotransferase (ALT/SGPT) (test code = 1742-6) 7 0-55 [facility]wooder[facility] or plasma protein measurement (mass/volume)2020-01-26 22:41:00* Test Item Value Reference Range Interpretation Comments Total Protein (test code = 2885-2) 7.3 6.5-8.1 [facility]wooder[facility] or plasma albumin measurement (mass/volume)2020-01-26 22:41:00* Test Item Value Reference Range Interpretation Comments Albumin (test code = 1751-7) 3.5 3.5-5.0 [facility] CenterPlasma globulin measurement (mass/volume) 2020-01-26 22:41:00* Test Item Value Reference Range Interpretation Comments Globulin (test code = 67910-2) 3.8 2.3-3.5 [facility]wooderum or plasma albumin/globulin mass dlpfo2506-95-65 22:41:00* Test Item Value Reference Range Interpretation Comments Albumin/Globulin Ratio (test code = 1759-0) 0.9 0.8-2.0 [facility] or plasma alkaline phosphatase measurement (enzymatic activity/volume)2020-01-26 22:41:00* Test Item Value Reference Range Interpretation Comments Alkaline Phosphatase (test code = 6768-6) 81 40-150 [facility]-eOll0960-04-36 22:41:00* Test Item Value Reference Range Interpretation Comments B-Type Natriuretic Peptide (test code = 03561-1) 14.7 0-100 [facility]-iJys2780-65-47 22:41:00* Test Item Value Reference Range Interpretation Comments B-Type Natriuretic Peptide (test code = 45205-8) 14.7 0-100 [facility]LACT[facility] DVPG1466-30-48 00:00:00* Test Item Value Reference Range Interpretation Comments LACTIC ACID (test code = LACT) 4.4 mmol/L 0.4-1.9 HH Results called to [id number] by [email or web address] 01/14/20 0000Critical results verified and read back by Nurse? Y PATIENT UNDER INVESTIGATION FOR [id number] 19 INHOUSE VS3470-36-17 10:34:00* Test Item Value Reference Range Interpretation Comments COVID 19 INHOUSE AG (test code = [id number]) NEGATIVE Is patient requiring admission or transfer? YIndication for rapid COVID-19 testi ng: Mod Clinical SuspicionPATIENT UNDER I NVESTIGATION FOR [id number] NATRIURETIC UBHUPSJ5071-24-30 08:41:00* Test Item Value Reference Range Interpretation Comments B-TYPE NATRIURETIC PEPTIDE (test code = BNP) 92.8 pgram/mL 0-100 N C REACTIVE SLMEQWU7862-42-40 07:51:00* Test Item Value Reference Range Interpretation Comments C REACTIVE PROTEIN (test code = CRP) <0.29 mg/dL 0-0.3 N - XR CHEST 1 [id number] 07:44:00 FAX: Ari Moreno [phone] [place]: St: ADM FAX: Ghulam Saha MD Name: VIRA MESSINA [facility] : 1955 Age/S: 64/F [address] Unit #: [id number] [place]: [place] [address] Phys: Ghulam Saha MD Acct: [id number] Dis Date: Status: ADM IN PHONE #: [phone] Exam Date: 01/13/2020727 FAX #: [phone] Reason: SHORTNESS OF BREATH EXAMS: CPT CODE: [id number] XR CHEST 1 V 75237 HISTORY: SHORTNESS OF BREATH TECHNIQUE: AP chest [...] By: [email or web address] Orig Print D/T: S: 01/12 (0795) PAGE 1 Signed Report LACTIC [id number] 07:42:00* Test Item Value Reference Range Interpretation Comments LACTIC ACID (test code = LACT) 2.1 mmol/L 0.4-1.9 [address] Results called to DR SAHA by GIANCARLO 01/13/20 0742Critical results verified and read back by Nurse? Y BASIC METABOLIC [id number] 07:40:00* Test Item Value Reference Range Interpretation [...] CA) 9.0 mg/dL 8.5-10.1 N HEPATIC FUNCTION [id number] 07:40:00* Test Item Value Reference Range Interpretation [...] code = LDH) 153 IUnit/L 84-246 N ANXRZP5032-47-85 07:40:00* Test Item Value Reference Range Interpretation Comments LIPASE (test code = LIP) 22 U/L 73.0-393.0 L VQPQBUNE-[id number] 07:40:00* Test Item Value Reference Range Interpretation Comments TROPONIN-I (test code = TROPI) <0.015 ng/mL 0-0.045 N PRXVDAOZ2997-30-14 07:40:00* Test Item Value Reference Range Interpretation Comments FERRITIN (test code = ASHOK) 11 ng/mL 8-388 N BASIC METABOLIC [id number] 07:29:00* Test Item Value Reference Range Interpretation [...] code = CA) mg/dL 8.5-10.1 HEPATIC FUNCTION [id number] 07:29:00* Test Item Value Reference Range Interpretation [...] DEHYDROGENASE(LDH) (test code = LDH) IUnit/L 84-246 JTSWWB1740-08-91 07:29:00* Test Item Value Reference Range Interpretation Comments LIPASE (test code = LIP) U/L 73.0-393.0 DMBCNGOK-Q5832-98-03 07:29:00* Test Item Value Reference Range Interpretation Comments TROPONIN-I (test code = TROPI) ng/mL 0-0.045 CEXVEYBV4202-30-62 07:29:00* Test Item Value Reference Range Interpretation Comments FERRITIN (test code = ASHOK) ng/mL 8-388 CBC W/AUTO BAYD4607-60-00 06:36:00* Test Item Value Reference Range Interpretation [...] = MDIFF) NO CHEST SINGLE (PORTABLE)2019-12-18 17:25:00 [place] [address] Patient Name: VIRA MESSINA MR #: [id number] : 1955 Age/Sex: 64/F Req #: [id number] Adm Physician: Ordered by: NATTY TEE MD Report #: [id number] Location: ER Room/Bed: Procedure: [id number] DX/CHEST SINGLE (PORTABLE) Exam Date: 12/18/19 Exam [...] Count (test code = 6690-2) 6.42 4.8-10.8 [facility] CenterBlood erythrocytes automated count (number/volume)2019-12-18 16:09:00* Test Item Value Reference Range Interpretation Comments Red Blood Count (test code = 789-8) 4.12 3.6-5.1 [facility] CenterBlood hemoglobin measurement (moles/volume)2019-12-18 16:09:00* Test Item Value Reference Range Interpretation Comments Hemoglobin (test code = 87752-8) 11.8 12.0-16.0 [facility] CenterAutomated blood hematocrit (volume fraction)2019-12-18 16:09:00* Test Item Value Reference Range Interpretation Comments Hematocrit (test code = 4544-3) 37.0 34.2-44.1 [facility] CenterAutomated erythrocyte mean corpuscular esigdw5841-75-88 16:09:00* Test Item Value Reference Range Interpretation Comments Mean Corpuscular Volume (test code = 787-2) 89.8 81-99 [facility] CenterAutomated erythrocyte mean corpuscular hemoglobin (mass per erythrocyte)2019-12-18 16:09:00* Test Item Value Reference Range Interpretation Comments Mean Corpuscular Hemoglobin (test code = 785-6) 28.6 28-32 [facility] CenterAutomated erythrocyte mean corpuscular hemoglobin concentration measurement (mass/volume)2019-12-18 16:09:00* Test Item Value Reference Range Interpretation Comments Mean Corpuscular Hemoglobin Concent (test code = 786-4) 31.9 31-35 [facility] CenterRDW WkpAa-Vzz3467-85-07 16:09:00* Test Item Value Reference Range Interpretation Comments Red Cell Distribution Width (test code = 00752-4) 14.5 11.7 -14.4 [facility] CenterAutomated blood platelet count (count/volume)2019-12-18 16:09:00* Test Item Value Reference Range Interpretation Comments Platelet Count (test code = 777-3) 291 140-360 [facility] CenterAutomated blood segmented neutrophil count as percentage of total zfcaikvnmu6619-71-78 16:09:00* Test Item Value Reference Range Interpretation Comments Neutrophils (%) (Auto) (test code = 99604-9) 41.7 38.7-80.0 [facility] CenterAutomated blood lymphocyte count as percentage ot total ytcertdjqz7538-16-70 16:09:00* Test Item Value Reference Range Interpretation Comments Lymphocytes (%) (Auto) (test code = 736-9) 44.5 18.0-39.1 [facility] CenterAutomated blood monocyte count as percentage of total jtipidlntt9847-60-46 16:09:00* Test Item Value Reference Range Interpretation Comments Monocytes (%) (Auto) (test code = 5905-5) 11.4 4.4-11.3 [facility] CenterAutomated blood eosinophil count as percentage of total psthmsrblu6586-72-08 16:09:00* Test Item Value Reference Range Interpretation Comments Eosinophils (%) (Auto) (test code = 713-8) 1.6 0.0-6.0 [facility] CenterAutomated blood basophil count as percentage of total fpybsrjvfp5344-23-97 16:09:00* Test Item Value Reference Range Interpretation Comments Basophils (%) (Auto) (test code = 706-2) 0.6 0.0-1.0 [facility] CenterFluoroscopic procedure less than one hour pktmmgby2592-32-25 16:09:00* Test Item Value Reference Range Interpretation Comments IM GRANULOCYTES % (test code = IM GRANULOCYTES %) 0.2 0.0- 1.0 [facility] CenterAutomated blood neutrophil count 2019-12-18 16:09:00* Test Item Value Reference Range Interpretation Comments Neutrophils # (Auto) (test code = 751-8) 2.7 2.1-6.9 [facility] CenterBlood lymphocytes count (number/volume) 2019-12-18 16:09:00* Test Item Value Reference Range Interpretation Comments Lymphocytes # (Auto) (test code = 78451-1) 2.9 1.0-3.2 [facility] CenterBlood monocytes automated count (number/volume)2019-12-18 16:09:00* Test Item Value Reference Range Interpretation Comments Monocytes # (Auto) (test code = 742-7) 0.7 0.2-0.8 [facility] CenterAutomated blood eosinophil count 2019-12-18 16:09:00* Test Item Value Reference Range Interpretation Comments Eosinophils # (Auto) (test code = 711-2) 0.1 0.0-0.4 [facility] CenterAutomated blood basophil count (count/volume)2019-12-18 16:09:00* Test Item Value Reference Range Interpretation Comments Basophils # (Auto) (test code = 704-7) 0.0 0.0-0.1 [facility] CenterFluoroscopic procedure less than one hour srcpvgxf6214-39-14 16:09:00* Test Item Value Reference Range Interpretation Comments Absolute Immature Granulocyte (auto (jasvir t code = Absolute Immature Granulocyte (auto) 0.01 0-0.1 [facility] CenterProthrombin time (PT) in platelet poor plasma by coagulation xudnc9437-25-13 16:09:00* Test Item Value Reference Range Interpretation Comments Prothrombin Time (test code = 5902-2) 11.4 11.9-14.5 [facility] CenterINR in Platelet poor plasma by Coagulation zxcqg9344-07-74 16:09:00* Test Item Value Reference Range Interpretation Comments Prothromb Time International Ratio (test code = 6301-6) 0.79 Oral Anticoagulant Therapy INR Values:1. Low Intensity Therapy 1.5 - 2.02 . Moderate Intensity Therapy 2.0 - 3.03. High Intensity Therapy(1) 2.5 - 3. 54. High Intensity Therapy(2) 3.0 - 4.05. Panic Value INR > 5.0 [facility] CenterActivated partial thromboplastin time (aPTT) in platelet poor plasma by coagulation mugrv4622-32-02 16:09:00* Test Item Value Reference Range Interpretation Comments Activated Partial Thromboplast Time (test code = 79621-3) 32.4 23.8-35.5 [facility]wooder[facility] or plasma sodium measurement (moles/volume)2019-12-18 16:09:00* Test Item Value Reference Range Interpretation Comments Sodium Level (test code = 2951-2) 137 136-145 [facility]wooderum or plasma potassium measurement (moles/volume)2019-12-18 16:09:00* Test Item Value Reference Range Interpretation Comments Potassium Level (test code = 2823-3) 4.3 3.5-5.1 [facility]wooderum or plasma chloride measurement (moles/volume)2019-12-18 16:09:00* Test Item Value Reference Range Interpretation Comments Chloride Level (test code = 2075-0) 105 98-107 [facility]wooderum or plasma carbon dioxide, total measurement (moles/volume)2019-12-18 16:09:00* Test Item Value Reference Range Interpretation Comments Carbon Dioxide Level (test code = 2028-9) 25 22-29 [facility]wooderum or plasma anion oex2587-72-20 16:09:00* Test Item Value Reference Range Interpretation Comments Anion Gap (test code = 72845-7) 11.3 8-16 [facility]wooderum or plasma urea nitrogen measurement (mass/volume)2019-12-18 16:09:00* Test Item Value Reference Range Interpretation Comments Blood Urea Nitrogen (test code = 3094-0) 7 7-26 [facility]wooderum or plasma creatinine measurement (mass/volume)2019-12-18 16:09:00* Test Item Value Reference Range Interpretation Comments Creatinine (test code = 2160-0) 0.69 0.57-1.11 [facility]wooderum or plasma urea nitrogen/creatinine mass pjyjk4718-94-32 16:09:00* Test Item Value Reference Range Interpretation Comments BUN/Creatinine Ratio (test code = 3097-3) 10 6-25 [facility] CenterEstimated glomerular filtration rate (GFR) pejbdxcgkcgnn5790-67-12 16:09:00* Test Item Value Reference Range Interpretation Comments Estimat Glomerular Filtration Rate (test code = 383385839) > 60 >60 Ranges were taken from the National Kidney Disease Education Program and the [facility] literature.Reference ranges:60 or greater: Rxrorz08-07 ( for 3 consecutive months): Chronic kidney disease 15 or less: Kidney failureBrownfield Regional Medical CenterGlucose jdpkzawxjbj4765-50-74 16:09:00* Test Item Value Reference Range Interpretation Comments Glucose Level (test code = JJF5917) 100 74-118 [facility]wooderum or plasma calcium measurement (mass/volume)2019-12-18 16:09:00* Test Item Value Reference Range Interpretation Comments Calcium Level (test code = 39705-9) 9.2 8.4-10.2 [facility]wooderum or plasma total bilirubin measurement (mass/volume)2019-12-18 16:09:00* Test Item Value Reference Range Interpretation Comments Total Bilirubin (test code = 1975-2) 0.2 0.2-1.2 [facility] CenterFluoroscopic procedure less than one hour lmawmavh8027-15-53 16:09:00* Test Item Value Reference Range Interpretation Comments Aspartate Amino Transf (AST/SGOT) (test code = Aspartate Amino Transf (AST/SGOT)) 16 5-34 [facility]wooderum or plasma alanine aminotransferase measurement (enzymatic activity/volume)2019-12-18 16:09:00* Test Item Value Reference Range Interpretation Comments Alanine Aminotransferase (ALT/SGPT) (test code = 1742-6) < 6 0-55 [facility]wooderum or plasma protein measurement (mass/volume)2019-12-18 16:09:00* Test Item Value Reference Range Interpretation Comments Total Protein (test code = 2885-2) 7.1 6.5-8.1 [facility]wooderum or plasma albumin measurement (mass/volume)2019-12-18 16:09:00* Test Item Value Reference Range Interpretation Comments Albumin (test code = 1751-7) 3.6 3.5-5.0 [facility] CenterPlasma globulin measurement (mass/volume) 2019-12-18 16:09:00* Test Item Value Reference Range Interpretation Comments Globulin (test code = 60608-0) 3.5 2.3-3.5 [facility]wooderum or plasma albumin/globulin mass bxjjr5424-86-60 16:09:00* Test Item Value Reference Range Interpretation Comments Albumin/Globulin Ratio (test code = 1759-0) 1.0 0.8-2.0 [facility]wooderum or plasma alkaline phosphatase measurement (enzymatic activity/volume)2019-12-18 16:09:00* Test Item Value Reference Range Interpretation Comments Alkaline Phosphatase (test code = 6768-6) 88 40-150 [facility] CenterBNP Pmi-oYly6915-02-07 16:09:00* Test Item Value Reference Range Interpretation Comments B-Type Natriuretic Peptide (test code = 98368-9) < 10.0 0-100 [facility] Kingwooderum or plasma creatine kinase measurement (enzymatic activity/volume)2019-12-18 16:09:00* Test Item Value Reference Range Interpretation Comments Creatine Kinase (test code = 2157-6) 46 29-168 [facility] Kingwooderum or plasma creatine kinase MB measurement (mass/volume)2019-12-18 16:09:00* Test Item Value Reference Range Interpretation Comments Creatine Kinase MB (test code = 92638-8) 0.70 0-5.0 [facility] CenterTroponin I measurement by highly sensitive enzyme njijorzknap5616-85-63 16:09:00* Test Item Value Reference Range Interpretation Comments Troponin I (test code = 09868-4) < 0.001 0-0.300 [facility] CenterProthrombin time (PT) in platelet poor plasma by coagulation xshrb5575-09-49 16:09:00* Test Item Value Reference Range Interpretation Comments Prothrombin Time (test code = 5902-2) 11.4 11.9-14.5 [facility] CenterINR in Platelet poor plasma by Coagulation dyinl3936-36-37 16:09:00* Test Item Value Reference Range Interpretation Comments Prothromb Time International Ratio (test code = 6301-6) 0.79 Oral Anticoagulant Therapy INR Values:1. Low Intensity Therapy 1.5 - 2.02 . Moderate Intensity Therapy 2.0 - 3.03. High Intensity Therapy(1) 2.5 - 3. 54. High Intensity Therapy(2) 3.0 - 4.05. Panic Value INR > 5.0 [facility] CenterActivated partial thromboplastin time (aPTT) in platelet poor plasma by coagulation sjwbg5727-95-17 16:09:00* Test Item Value Reference Range Interpretation Comments Activated Partial Thromboplast Time (test code = 90527-4) 32.4 23.8-35.5 [facility]wooderum or plasma creatine kinase measurement (enzymatic activity/volume)2019-12-18 16:09:00* Test Item Value Reference Range Interpretation Comments Creatine Kinase (test code = 2157-6) 46 29-168 [facility] Kingwooderum or plasma creatine kinase MB measurement (mass/volume)2019-12-18 16:09:00* Test Item Value Reference Range Interpretation Comments Creatine Kinase MB (test code = 78495-4) 0.70 0-5.0 [facility] CenterTroponin I measurement by highly sensitive enzyme msbijkcgemd5869-63-46 16:09:00* Test Item Value Reference Range Interpretation Comments Troponin I (test code = 75289-8) < 0.001 0-0.300 [facility] CenterProthrombin time (PT) in platelet poor plasma by coagulation znxmd3935-05-56 16:09:00* Test Item Value Reference Range Interpretation Comments Prothrombin Time (test code = 5902-2) 11.4 11.9-14.5 [facility] CenterINR in Platelet poor plasma by Coagulation sdyzr2642-34-51 16:09:00* Test Item Value Reference Range Interpretation Comments Prothromb Time International Ratio (test code = 6301-6) 0.79 Oral Anticoagulant Therapy INR Values:1. Low Intensity Therapy 1.5 - 2.02 . Moderate Intensity Therapy 2.0 - 3.03. High Intensity Therapy(1) 2.5 - 3. 54. High Intensity Therapy(2) 3.0 - 4.05. Panic Value INR > 5.0 [facility] CenterActivated partial thromboplastin time (aPTT) in platelet poor plasma by coagulation lheqy2129-68-04 16:09:00* Test Item Value Reference Range Interpretation Comments Activated Partial Thromboplast Time (test code = 06580-6) 32.4 23.8-35.5 [facility] CenterProthrombin time (PT) in platelet poor plasma by coagulation yyvkk5585-04-31 16:09:00* Test Item Value Reference Range Interpretation Comments Prothrombin Time (test code = 5902-2) 11.4 11.9-14.5 [facility] CenterINR in Platelet poor plasma by Coagulation tssup5554-45-65 16:09:00* Test Item Value Reference Range Interpretation Comments Prothromb Time International Ratio (test code = 6301-6) 0.79 Oral Anticoagulant Therapy INR Values:1. Low Intensity Therapy 1.5 - 2.02 . Moderate Intensity Therapy 2.0 - 3.03. High Intensity Therapy(1) 2.5 - 3. 54. High Intensity Therapy(2) 3.0 - 4.05. Panic Value INR > 5.0 [facility] CenterActivated partial thromboplastin time (aPTT) in platelet poor plasma by coagulation flguj0554-87-58 16:09:00* Test Item Value Reference Range Interpretation Comments Activated Partial Thromboplast Time (test code = 42715-5) 32.4 23.8-35.5 [facility] CenterProthrombin time (PT) in platelet poor plasma by coagulation mqrqf1177-50-92 16:09:00* Test Item Value Reference Range Interpretation Comments Prothrombin Time (test code = 5902-2) 11.4 11.9-14.5 [facility] CenterINR in Platelet poor plasma by Coagulation mxrmn4248-11-84 16:09:00* Test Item Value Reference Range Interpretation Comments Prothromb Time International Ratio (test code = 6301-6) 0.79 Oral Anticoagulant Therapy INR Values:1. Low Intensity Therapy 1.5 - 2.02 . Moderate Intensity Therapy 2.0 - 3.03. High Intensity Therapy(1) 2.5 - 3. 54. High Intensity Therapy(2) 3.0 - 4.05. Panic Value INR > 5.0 [facility] CenterActivated partial thromboplastin time (aPTT) in platelet poor plasma by coagulation wnois8825-57-50 16:09:00* Test Item Value Reference Range Interpretation Comments Activated Partial Thromboplast Time (test code = 63493-1) 32.4 23.8-35.5 [facility] CenterMAGNESIUM2020-[facility]-16 22:06:00* Test Item Value Reference Range Interpretation Comments MAGNESIUM (test code = MAG) 1.8 mg/dL 1.8-2.4 N B-TYPE NATRIURETIC [id number] 20:39:00* Test Item Value Reference Range Interpretation Comments B-TYPE NATRIURETIC PEPTIDE (test code = BNP) 45.41 pgram/mL 0-100 N BASIC METABOLIC [id number] 20:27:00* Test Item Value Reference Range Interpretation [...] code = CA) 9.0 mg/dL 8.5-10.1 N [id number]-[id number] 20:27:00* Test Item Value Reference Range Interpretation Comments TROPONIN-I (test code = TROPI) <0.015 ng/mL 0-0.045 N [id number]-[id number] 20:24:00* Test Item Value Reference Range Interpretation Comments D-DIMER (test code = DDIMER) 657.00 ng/mLFEU 0-500 HH Results called to NMA2467 by CHARLIE 11/26/19 2022Critical results verified and [...] skin infections -Liver cirrhosis - BASIC METABOLIC [id number] 20:13:00* Test Item Value Reference Range Interpretation [...] CALCIUM (test code = CA) mg/dL 8.5-10.1 [id number] 20:13:00* Test Item Value Reference Range Interpretation Comments TROPONIN-I (test code = TROPI) ng/mL 0-0.045 CBC W/O [id number] 20:06:00* Test Item Value Reference Range Interpretation [...] MPV) 9.2 fL 6.7-11.0 N CBC W/O [id number] 20:00:00* Test Item Value Reference Range Interpretation [...] = MPV) fL 6.7-11.0 Coronavirus 2019 nCoV Bryyaty3556-13-75 19:16:00* Test Item Value Reference Range Interpretation Comments Coronavirus 2019 nCoV Bedside (test code = [id number]) Negative Is patient requiring admission or transfer? YIndication for rapid COVID-19 testi ng: Mod Clinical Suspicion- XR CHEST 1 V 2019-11-26 18:21:00 FAX: Ari Moreno DO [phone] [place]: B St: PRE FAX: Junior Corea MD [phone] Name: VIRA MESSINA [facility] : 1955 Age/S: 64/F [address] [facility] Unit #: [id number] Loc: [place] [address] Phys: Junior Corea MD Acct: [id number] Dis Date: Status: PRE ER PHONE #: [phone] Exam Date: 11/26/20191812 FAX #: [phone] Reason: Shortness of Breath EXAMS: CPT CODE: [id number] XR CHEST 1 V 07774 REASON FOR EXAM: Shortness of Breath Exam [...] IMPRESSION: No acute cardiopulm onary process. Location: [facility] at 1821 Reported and si gned by: Rafita Archuleta MD CC: Ari Carmichael; Junior Corea MD Technologist: RT NAZ(R) Trnscrd Date/Time/By: 11/26/2019 (1820) : By: AndreeaRR31 Orig Print D/T: S: 11/26/2019 (1823) PAGE 1 Signed Report BASIC METABOLIC [id number] 14:04:00* Test Item Value Reference Range Interpretation [...] mg/dL 8.5-10.1 N [V.LAB.SP3 07/03/19 0536]CBC W/AUTO [id number] 12:59:00* Test Item Value Reference Range Interpretation [...] K/mm3 0.0-0.1 N [V.LAB.SP3 07/03/19 0536]B-TYPE NATRIURETIC [id number] 14:39:00* Test Item Value Reference Range Interpretation Comments B-TYPE NATRIURETIC PEPTIDE (test code = BNP) 144.74 pgram/mL 0-100 H BASIC METABOLIC [id number] 14:14:00* Test Item Value Reference Range Interpretation [...] code = CA) 8.9 mg/dL 8.5-10.1 N [id number] 14:14:00* Test Item Value Reference Range Interpretation Comments TROPONIN-I (test code = TROPI) <0.015 ng/mL 0-0.045 N BASIC METABOLIC [id number] 14:04:00* Test Item Value Reference Range Interpretation [...] code = CA) 8.9 mg/dL 8.5-10.1 N [id number] 14:04:00* Test Item Value Reference Range Interpretation Comments TROPONIN-I (test code = TROPI) ng/mL 0-0.045 BASIC METABOLIC [id number] 14:03:00* Test Item Value Reference Range Interpretation [...] CALCIUM (test code = CA) mg/dL 8.5-10.1 [id number] 14:03:00* Test Item Value Reference Range Interpretation Comments TROPONIN-I (test code = TROPI) ng/mL 0-0.045 CBC W/O [id number] 14:00:00* Test Item Value Reference Range Interpretation [...] MPV) 9.2 fL 6.7-11.0 N VENOUS BLOOD [id number] 13:32:00* Test Item Value Reference Range Interpretation [...] % 0.0-1.50 N - XR CHEST 1 [id number] 13:11:00 FAX: Ari Moreno DO [phone] [place]: St: REG FAX: Ghulam Saha MD Name: VIRA MESSINA [facility] : 1955 Age/S: 64/F [address] Unit #: [id number] Loc: [place] [address] Phys: Ghulam Saha MD Acct: [id number] Dis Date: Status: REG ER PHONE #: [phone] Exam Date: 07/02/2019 1305 FAX #: [phone] Reason: Shortness of Breath EXAMS: CPT CODE: [id number] XR CHEST 1 V 33342 REASON FOR EXAM: Shortness of Breath EXAM [...] Technologist: GONZALES AC RT(R) Trnscrd Date/Time/By: 07/02/2019 (3738) : By: AndreeaVTL Orig Print D/T: S: 07/02/2019 (4894) PAGE 1 Signed Report BASIC METABOLIC [id number] 02:56:00* Test Item Value Reference Range Interpretation [...] CA) 8.6 mg/dL 8.5-10.1 N BASIC METABOLIC [id number] 02:50:00* Test Item Value Reference Range Interpretation [...] code = CA) mg/dL 8.5-10.1 CBC W/AUTO [id number] 02:35:00* Test Item Value Reference Range Interpretation [...] code = NRBC#) 0.00 K/mm3 0.0-0.1 N [id number] 20:01:00* Test Item Value Reference Range Interpretation Comments GLUBED (test code = GLUBED) 161 mg/dL 74-106 H Performed by certified refractory grinder operator at [facility] CREATINE KINASE (CK)2019-06-30 12:22:00* Test Item Value Reference Range Interpretation Comments CREATINE KINASE (CK) (test code = CK) 39 IUnit/L 26-208 N LACTIC DEHYDROGENASE(LDH)2019-06-30 12:22:00* Test Item Value Reference Range Interpretation Comments LACTIC DEHYDROGENASE(LDH) (test code = LDH) 124 IUnit/L 84-246 N FOLIC [id number] 12:22:00* Test Item Value Reference Range Interpretation Comments FOLIC ACID (test code = FOL) 8.0 ng/mL 3.10-17.50 N [id number] 12:22:00* Test Item Value Reference Range Interpretation Comments FERRITIN (test code = ASHOK) 40 ng/mL 8-388 N [id number] 12:14:00* Test Item Value Reference Range Interpretation Comments GLYCOSYLATED HEMOGLOBIN (HA1C) (test code = GLYHGB) 5.5 % HbA1 SUGGESTED DIAGNOSIS: HbA1C (%) Diabetic >6.4Prediabetes 5.7 - 6.4Normal <5.7 ESTIMATED AVERAGE GLUCOSE (test code = EAG) 111 MG/DL B-TYPE NATRIURETIC [id number] 12:12:00* Test Item Value Reference Range Interpretation Comments B-TYPE NATRIURETIC PEPTIDE (test code = BNP) 104.46 pgram/mL 0-100 H C REACTIVE [id number] 12:07:00* Test Item Value Reference Range Interpretation Comments C REACTIVE PROTEIN (test code = CRP) 0.98 mg/dL 0-0.3 H LACTIC [id number] 20:36:00* Test Item Value Reference Range Interpretation Comments LACTIC ACID (test code = LACT) 1.4 mmol/L 0.4-1.9 N BASIC METABOLIC [id number] 19:52:00* Test Item Value Reference Range Interpretation [...] code = CA) 8.9 mg/dL 8.5-10.1 N [id number] 19:52:00* Test Item Value Reference Range Interpretation Comments TROPONIN-I (test code = TROPI) <0.015 ng/mL 0-0.045 N BASIC METABOLIC [id number] 19:47:00* Test Item Value Reference Range Interpretation [...] code = CA) 8.9 mg/dL 8.5-10.1 N [id number] 19:47:00* Test Item Value Reference Range Interpretation Comments TROPONIN-I (test code = TROPI) ng/mL 0-0.045 CBC W/O [id number] 19:46:00* Test Item Value Reference Range Interpretation [...] MPV) 8.9 fL 6.7-11.0 N CBC W/O [id number] 19:42:00* Test Item Value Reference Range Interpretation [...] MPV) fL 6.7-11.0 - XR CHEST 1 [id number] 19:26:00 FAX: Surjit Curtis [phone] [place]: B St: [facility] FAX: Ari Moreno DO [phone] Name: VIRA MESSINA [facility] : 1955 Age/S: 64/F [address] [facility] Unit #: [id number] Loc: [place] [address] Phys: Surjit Finn MD Acct: [id number] Dis Date: Status: REG ER PHONE #: [phone] Exam Date: 06/29/2019 1846 FAX #: [phone] Reason: Shortness of Breath EXAMS: CPT CODE: [id number] XR CHEST 1 V 62795 EXAM: Chest x-ray, one view; INFORMATION: Shortness of breath; IMPRESSION: 1. No evidence of active cardiopulmonary disease. 2. No significant change compared with a study from May 12, 2019. Aortic calcifications. Location code: [facility] at 1926 Reported and signed by: Adam Beckett M.D. CC: Surjit Finn MD; Ari Carmichael Technologist: MIKAYLA RATLIFF RT (R); ... Trnscrd Date/Time/By: 06/29/2019 (1925) : By: AndreeaGRW Orig Print D/T: S: 06/29/2019 (1928) PAGE 1 Signed Report DRUGS OF ABUSE SCREEN [id number] 20:48:00* Test Item Value Reference Range Interpretation [...] NEGATIVE <300 ng/mL 1732]DRUGS OF ABUSE SCREEN [id number] 20:06:00* Test Item Value Reference Range Interpretation [...] (test code = [place]) NEGATIVE <300 ng/mL 1732]UPQOXO9352-11-96 21:14:00* Test Item Value Reference Range Interpretation Comments GLUBED (test code = GLUBED) 96 mg/dL 74-106 N Performed by certified refractory grinder operator at [facility] [id number] 17:19:00* Test Item Value Reference Range Interpretation [...] ANADDITIONAL CHARGE TO THE PATIENT. B-TYPE NATRIURETIC [id number] 16:06:00* Test Item Value Reference Range Interpretation Comments B-TYPE NATRIURETIC PEPTIDE (test code = BNP) 28.85 pgram/mL 0-100 N BASIC METABOLIC [id number] 16:01:00* Test Item Value Reference Range Interpretation [...] code = CA) 9.8 mg/dL 8.5-10.1 N [id number]-[id number] 16:01:00* Test Item Value Reference Range Interpretation Comments TROPONIN-I (test code = TROPI) <0.015 ng/mL 0-0.045 N LACTIC [id number] 15:51:00* Test Item Value Reference Range Interpretation Comments LACTIC ACID (test code = LACT) 0.8 mmol/L 0.4-1.9 N BASIC METABOLIC [id number] 15:47:00* Test Item Value Reference Range Interpretation [...] CALCIUM (test code = CA) mg/dL 8.5-10.1 [id number] 15:47:00* Test Item Value Reference Range Interpretation Comments TROPONIN-I (test code = TROPI) ng/mL 0-0.045 CBC W/O [id number] 15:37:00* Test Item Value Reference Range Interpretation [...] MPV) 9.0 fL 6.7-11.0 N CBC W/O [id number] 15:36:00* Test Item Value Reference Range Interpretation [...] MPV) fL 6.7-11.0 - XR CHEST 1 [id number] 14:22:00 FAX: Roshan Petty DO [place]: B St: REG Name: VIRA PUGH [facility] : [birth year] Age/S: 64/F [address] [facility] Unit #: [id number] Loc: [place] [address] Phys: Roshan Petty DO Acct: [id number] Dis Date: Status: REG ER PHONE #: [phone] Exam Date: 05/12/2019 1350 FAX #: [phone] Reason: Shortness of Breath EXAMS: CPT CODE: [id number] XR CHEST 1 V 31113 REASON FOR EXAM: Shortness of Breath Exam [...] appears similar to the previous exam. Location: [facility] at 1422 Reported and signed by: Rafita Archuleta MD CC: Roshan Petty DO Technologist: MURRAY MARTINS) Trnscrd Date/Time/By: 05/12/20 19 (0162) : By: AndreeaRR31 Orig Print D/T: S: 05/12/2019 (5425) PAGE 1 Signed Report CBC W/AUTO [id number] 04:59:00* Test Item Value Reference Range Interpretation [...] = MDIFF) NO, ONLY SCAN NEEDED DIFFERENTIAL [id number] 04:59:00* Test Item Value Reference Range Interpretation Comments STAIN ACCEPTABILITY (test code = STN ACCEPTABLE) STAIN ACCEPTABLE ANISOCYTOSIS (test code = ANISO) 1+ MACROCYTOSIS (test code = MACR) 1+ PLATELET ESTIMATE (test code = PLTEST) ADEQUATE PLATELET MORPHOLOGY (test code = PLTMORPH) NORMAL [id number] 04:15:00* Test Item Value Reference Range Interpretation Comments TROPONIN-I (test code = TROPI) <0.015 ng/mL 0-0.045 N BASIC METABOLIC [id number] 04:13:00* Test Item Value Reference Range Interpretation [...] CA) 9.2 mg/dL 8.5-10.1 N CBC W/AUTO [id number] 03:51:00* Test Item Value Reference Range Interpretation [...] = MDIFF) NO, ONLY SCAN NEEDED DIFFERENTIAL [id number] 03:51:00* Test Item Value Reference Range Interpretation Comments STAIN ACCEPTABILITY (test code = STN ACCEPTABLE) MORPHOLOGY COMMENT (test code = MOC) PLATELET ESTIMATE (test code = PLTEST) PLATELET MORPHOLOGY (test code = PLTMORPH) CBC W/AUTO [id number] 03:49:00* Test Item Value Reference Range Interpretation [...] = MDIFF) NO, ONLY SCAN NEEDED DIFFERENTIAL [id number] 03:49:00* Test Item Value Reference Range Interpretation Comments STAIN ACCEPTABILITY (test code = STN ACCEPTABLE) CABOT RINGS (test code = CAB) MORPHOLOGY COMMENT (test code = MOC) PLATELET ESTIMATE (test code = PLTEST) PLATELET MORPHOLOGY (test code = PLTMORPH) CBC W/AUTO [id number] 03:49:00* Test Item Value Reference Range Interpretation [...] = MDIFF) NO, ONLY SCAN NEEDED DIFFERENTIAL [id number] 03:49:00* Test Item Value Reference Range Interpretation Comments STAIN ACCEPTABILITY (test code = STN ACCEPTABLE) MORPHOLOGY COMMENT (test code = MOC) PLATELET ESTIMATE (test code = PLTEST) PLATELET MORPHOLOGY (test code = PLTMORPH) CBC W/AUTO [id number] 03:49:00* Test Item Value Reference Range Interpretation [...] = MDIFF) NO, ONLY SCAN NEEDED DIFFERENTIAL [id number] 03:49:00* Test Item Value Reference Range Interpretation Comments STAIN ACCEPTABILITY (test code = STN ACCEPTABLE) CABOT RINGS (test code = CAB) MORPHOLOGY COMMENT (test code = MOC) PLATELET ESTIMATE (test code = PLTEST) PLATELET MORPHOLOGY (test code = PLTMORPH) THYROID STIMULATING [id number] 22:36:00* Test Item Value Reference Range Interpretation Comments THYROID STIMULATING HORMONE (test code = TSH) 0.141 uIU/mL 0.36-3.7 4 L TSH REFERENCE RANGES: EUTHYROID: 0.35 - 4.3 mIU/mL HYPO : > 5.5 mIU/mL HYPER : < 0.35 mIU/mL [id number] 22:24:00* Test Item Value Reference Range Interpretation Comments TROPONIN-I (test code = TROPI) <0.015 ng/mL 0-0.045 N COMMENTS TO ORGAN FIXER: COLLECT 3 HOURS AFTER PREVIOUS SAMPLEB-TYPE NATRIURETIC [id number] 16:33:00* Test Item Value Reference Range Interpretation Comments B-TYPE NATRIURETIC PEPTIDE (test code = BNP) 18.63 pgram/mL 0-100 N BASIC METABOLIC [id number] 16:21:00* Test Item Value Reference Range Interpretation [...] code = CA) 9.6 mg/dL 8.5-10.1 N [id number] 16:21:00* Test Item Value Reference Range Interpretation Comments LIPASE (test code = LIP) 13 U/L 73.0-393.0 L [id number] 16:21:00* Test Item Value Reference Range Interpretation Comments TROPONIN-I (test code = TROPI) <0.015 ng/mL 0-0.045 N BASIC METABOLIC [id number] 16:13:00* Test Item Value Reference Range Interpretation [...] CALCIUM (test code = CA) mg/dL 8.5-10.1 [id number] 16:13:00* Test Item Value Reference Range Interpretation Comments LIPASE (test code = LIP) U/L 73.0-393.0 [id number] 16:13:00* Test Item Value Reference Range Interpretation Comments TROPONIN-I (test code = TROPI) ng/mL 0-0.045 CBC W/O [id number] 16:09:00* Test Item Value Reference Range Interpretation [...] MPV) 9.3 fL 6.7-11.0 N VENOUS BLOOD [id number] 15:54:00* Test Item Value Reference Range Interpretation Comments VENOUS BLOOD GAS PH (test code = PHV) 7.40 7.30-7.40 N VENOUS BLOOD GAS PCO2 (test code = PCO2V) 22.8 mm Hg 39.0-51.0 LL Results called to and read back by [employer] 15:53 03/31/2019; by [employer] rt VENOUS BLOOD GAS PO2 (test code = PO2V) 45.7 mm Hg 30.0-50.0 N VBG HCO3 (test code = HCO3V) 13.9 mmol/L 17.0-30.0 L VBG BASE EXCESS (test code = QUIQUE) -9.6 mmol/L -5.0-5.0 LL Results called to and read back by [employer] 15:53 03/31/2019; by [employer] VENOUS BLOOD GAS O2 SAT. (test [...] % 0.0-1.50 N - XR CHEST 1 [id number] 15:41:00 FAX: Ghulam Saha MD [place]: B St: REG Name: VIRA PUGH [facility] : [birth year] Age/S: 63/F [address] [facility] Unit #: [id number] Loc: [place] [address] Phys: Ghulam Saha MD Acct: [id number] Dis Date: Status: REG ER PHONE #: [phone] Exam Date: 03/31/2019 1540 FAX #: [phone] Reason: Shortness of Breath EXAMS: CPT CODE: [id number] XR CHEST 1 V 10912 REASON FOR EXAM: Shortness of Breath EXAM ORDER DATE: 03/31/2019 3:06 PM Ordering MSapna: Ghulam Saha MD PROCEDURE: - XR CHEST [...] De La Cruz RT(R); ESTEFANI MCGHEE RT(R) Trnscrd Date/T floyd/By: 03/31/2019 (1541) : By: Colleen Orig Print D/T: S: 9 (4096) PAGE [address] CHEST [id number] 21:24:00 [place] [address] Patient Name: VIRA MESSINA MR #: [id number] : 1955 Age/Sex: 63/F Req #: [id number] Adm Physician: Ordered by: EMILIA MCGUIRE MD Report #: [id number] Location: ER Room/Bed: Procedure: [id number] CT /CT CHEST WO Exam Date: 11/10/18 [...] EMILIA MCGUIRE MD CHEST SINGLE (PORTABLE)2018-11-10 19:50:00 [place] [address] Patient Name: VIRA MESSINA MR #: [id number] : 1955 Age/Sex: 63/F Req #: [id number] Adm Physician: Ordered by: CAMMIE MEJIA MD Report #: [id number] Location: ER Room/Bed: Procedure: [id number] DX /CHEST SINGLE (PORTABLE) Exam Date: Exam [...] 11/10/181953 COPY TO: CAMMIE MEJIA MD Sodium Orxpa7299-23-19 07:00:00* Test Item Value Reference Range Interpretation Comments Sodium Level (test code = 2951-2) 139 136-145 [facility] CenterPotassium Xtyph2773-38-62 07:00:00* Test Item Value Reference Range Interpretation Comments Potassium Level (test code = 2823-3) 4.0 3.5-5.1 [facility] CenterChloride Ubajj6051-57-15 07:00:00* Test Item Value Reference Range Interpretation Comments Chloride Level (test code = 2075-0) 103 98-107 [facility] CenterCarbon Dioxide Lmymq0376-13-37 07:00:00* Test Item Value Reference Range Interpretation Comments Carbon Dioxide Level (test code = 2028-9) 26 22-29 [facility] CenterAnion Gcl4415-36-04 07:00:00* Test Item Value Reference Range Interpretation Comments Anion Gap (test code = 52336-1) 14.0 8-16 [facility] CenterBlood Urea Jhfniact4980-07-58 07:00:00* Test Item Value Reference Range Interpretation Comments Blood Urea Nitrogen (test code = 3094-0) 12 7-26 [facility] CenterCreatinine2018-11-30 07:00:00* Test Item Value Reference Range Interpretation Comments Creatinine (test code = 2160-0) 0.61 0.57-1.11 [facility] CenterBUN/Creatinine Octhb0163-62-12 07:00:00* Test Item Value Reference Range Interpretation Comments BUN/Creatinine Ratio (test code = 3097-3) 20 6- [facility] CenterEstimat Glomerular Filtration Rate 2018-06-11 07:00:00* Test Item Value Reference Range Interpretation Comments Estimat Glomerular Filtration Rate (test code = 956483614) > 60 >60 Ranges were taken from the National Kidney Disease Education Program and the [facility] Foundation literature.Reference ranges:60 or greater: Ofudzj98-49 ( for 3 consecutive months): Chronic kidney disease 15 or less: Kidney failureBrownfield Regional Medical CenterGlucose Lturc4627-49-22 07:00:00* Test Item Value Reference Range Interpretation Comments Glucose Level (test code = REV8639) 66 74-118 L [facility] CenterCalcium Nvskg2072-27-93 07:00:00* Test Item Value Reference Range Interpretation Comments Calcium Level (test code = 23841-0) 8.8 8.4-10.2 [facility] CenterMagnesium Zotfk6694-70-17 07:00:00* Test Item Value Reference Range Interpretation Comments Magnesium Level (test code = 34868-8) 2.2 1.3-2.1 [facility] Lcnru2171-60-23 07:00:00* Test Item Value Reference Range Interpretation Comments Sodium Level (test code = 2951-2) 139 136-145 [facility] CenterPotassium Eevbd9760-66-58 07:00:00* Test Item Value Reference Range Interpretation Comments Potassium Level (test code = 2823-3) 4.0 3.5-5.1 [facility] CenterChloride Ewqrq9932-36-60 07:00:00* Test Item Value Reference Range Interpretation Comments Chloride Level (test code = 2075-0) 103 98-107 [facility] CenterCarbon Dioxide Ngxph6310-73-31 07:00:00* Test Item Value Reference Range Interpretation Comments Carbon Dioxide Level (test code = 2028-9) 26 22-29 [facility] CenterAnion Cyw4431-01-48 07:00:00* Test Item Value Reference Range Interpretation Comments Anion Gap (test code = 78091-0) 14.0 8-16 [facility] CenterBlood Urea Umvygnea5203-43-43 07:00:00* Test Item Value Reference Range Interpretation Comments Blood Urea Nitrogen (test code = 3094-0) 12 7-26 [facility] CenterCreatinine2018-11-30 07:00:00* Test Item Value Reference Range Interpretation Comments Creatinine (test code = 2160-0) 0.61 0.57-1.11 [facility] CenterBUN/Creatinine Qrvec8001-78-42 07:00:00* Test Item Value Reference Range Interpretation Comments BUN/Creatinine Ratio (test code = 3097-3) 20 6-25 [facility] CenterEstimat Glomerular Filtration Rate 2018-06-11 07:00:00* Test Item Value Reference Range Interpretation Comments Estimat Glomerular Filtration Rate (test code = 623753752) > 60 >60 Ranges were taken from the National Kidney Disease Education Program and the [facility] Foundation literature.Reference ranges:60 or greater: Qfjjjh69-48 ( for 3 consecutive months): Chronic kidney disease 15 or less: Kidney failureBrownfield Regional Medical CenterGlucose Rzbmi4308-40-55 07:00:00* Test Item Value Reference Range Interpretation Comments Glucose Level (test code = TGC1567) 66 74-118 L [facility] CenterCalcium Sbhtn8769-63-36 07:00:00* Test Item Value Reference Range Interpretation Comments Calcium Level (test code = 74954-8) 8.8 8.4-10.2 [facility] CenterMagnesium Ngmpx3654-93-82 07:00:00* Test Item Value Reference Range Interpretation Comments Magnesium Level (test code = 25709-0) 2.2 1.3-2.1 H [facility] CenterWhite Blood Gsbap2629-51-49 06:57:00* Test Item Value Reference Range Interpretation Comments White Blood Count (test code = 6690-2) 6.16 4.8-10.8 [facility] CenterRed Blood Uxraj6654-01-63 06:57:00* Test Item Value Reference Range Interpretation Comments Red Blood Count (test code = 789-8) 3.12 3.6-5.1 L [facility] CenterHemoglobin2018-11-30 06:57:00* Test Item Value Reference Range Interpretation Comments Hemoglobin (test code = 36755-9) 10.1 12.0-16.0 L [facility] CenterHematocrit2018-11-30 06:57:00* Test Item Value Reference Range Interpretation Comments Hematocrit (test code = 4544-3) 31.5 34.2-44.1 L [facility] CenterMean Corpuscular Xhsipv1011-01-24 06:57:00* Test Item Value Reference Range Interpretation Comments Mean Corpuscular Volume (test code = 787-2) 101.0 81-99 H [facility] CenterMean Corpuscular Rwcjhwpxse7999-06-73 06:57:00* Test Item Value Reference Range Interpretation Comments Mean Corpuscular Hemoglobin (test code = 785-6) 32.4 28-32 H [facility] CenterMean Corpuscular Hemoglobin Concent 2018-06-11 06:57:00* Test Item Value Reference Range Interpretation Comments Mean Corpuscular Hemoglobin Concent (test code = 786-4) 32.1 31-35 [facility] CenterRed Cell Distribution Suhcy1634-27-69 06:57:00* Test Item Value Reference Range Interpretation Comments Red Cell Distribution Width (test code = 41989-5) 14.4 11.7 -14.4 [facility] CenterPlatelet Hfurt5353-01-54 06:57:00* Test Item Value Reference Range Interpretation Comments Platelet Count (test code = 777-3) 248 140-360 [facility] CenterNeutrophils (%) (Auto)2018-06-11 06:57:00 * Test Item Value Reference Range Interpretation Comments Neutrophils (%) (Auto) (test code = 24737-0) 66.4 38.7-80.0 [facility] CenterLymphocytes (%) (Auto)2018-06-11 06:57:00 * Test Item Value Reference Range Interpretation Comments Lymphocytes (%) (Auto) (test code = 736-9) 15.3 18.0-39.1 L [facility] CenterMonocytes (%) (Auto)2018-06-11 06:57:00* Test Item Value Reference Range Interpretation Comments Monocytes (%) (Auto) (test code = 5905-5) 13.5 4.4-11.3 H [facility] CenterEosinophils (%) (Auto)2018-06-11 06:57:00 * Test Item Value Reference Range Interpretation Comments Eosinophils (%) (Auto) (test code = 713-8) 4.2 0.0-6.0 [facility] CenterBasophils (%) (Auto)2018-06-11 06:57:00* Test Item Value Reference Range Interpretation Comments Basophils (%) (Auto) (test code = 706-2) 0.3 0.0-1.0 [facility] CenterIM [facility]ULOCYTES %2018-06-11 06:57:00* Test Item Value Reference Range Interpretation Comments IM GRANULOCYTES % (test code = IM GRANULOCYTES %) 0.3 0.0- 1.0 [facility] CenterNeutrophils # (Auto)2018-06-11 06:57:00* Test Item Value Reference Range Interpretation Comments Neutrophils # (Auto) (test code = 751-8) 4.1 2.1-6.9 [facility] CenterLymphocytes # (Auto)2018-06-11 06:57:00* Test Item Value Reference Range Interpretation Comments Lymphocytes # (Auto) (test code = 86489-9) 0.9 1.0-3.2 L [facility] CenterMonocytes # (Auto)2018-06-11 06:57:00* Test Item Value Reference Range Interpretation Comments Monocytes # (Auto) (test code = 742-7) 0.8 0.2-0.8 [facility] CenterEosinophils # (Auto)2018-06-11 06:57:00* Test Item Value Reference Range Interpretation Comments Eosinophils # (Auto) (test code = 711-2) 0.3 0.0-0.4 [facility] CenterBasophils # (Auto)2018-06-11 06:57:00* Test Item Value Reference Range Interpretation Comments Basophils # (Auto) (test code = 704-7) 0.0 0.0-0.1 [facility] CenterAbsolute Immature Granulocyte (auto 2018-06-11 06:57:00* Test Item Value Reference Range Interpretation Comments Absolute Immature Granulocyte (auto (jasvir t code = Absolute Immature Granulocyte (auto) 0.02 0-0.1 [facility] CenterWhite Blood Xqcir2284-94-28 06:57:00* Test Item Value Reference Range Interpretation Comments White Blood Count (test code = 6690-2) 6.16 4.8-10.8 [facility] CenterRed Blood Ddusd2997-44-80 06:57:00* Test Item Value Reference Range Interpretation Comments Red Blood Count (test code = 789-8) 3.12 3.6-5.1 L [facility] CenterHemoglobin2018-11-30 06:57:00* Test Item Value Reference Range Interpretation Comments Hemoglobin (test code = 44913-0) 10.1 12.0-16.0 L [facility] CenterHematocrit2018-11-30 06:57:00* Test Item Value Reference Range Interpretation Comments Hematocrit (test code = 4544-3) 31.5 34.2-44.1 L [facility] CenterMean Corpuscular Ozvggu4566-91-57 06:57:00* Test Item Value Reference Range Interpretation Comments Mean Corpuscular Volume (test code = 787-2) 101.0 81-99 H [facility] CenterMean Corpuscular Mqqxdpiwks0559-70-75 06:57:00* Test Item Value Reference Range Interpretation Comments Mean Corpuscular Hemoglobin (test code = 785-6) 32.4 28-32 H [facility] CenterMean Corpuscular Hemoglobin Concent 2018-06-11 06:57:00* Test Item Value Reference Range Interpretation Comments Mean Corpuscular Hemoglobin Concent (test code = 786-4) 32.1 31-35 [facility] CenterRed Cell Distribution Awqxx9360-27-80 06:57:00* Test Item Value Reference Range Interpretation Comments Red Cell Distribution Width (test code = 37650-7) 14.4 11.7 -14.4 [facility] CenterPlatelet Scalh0321-50-46 06:57:00* Test Item Value Reference Range Interpretation Comments Platelet Count (test code = 777-3) 248 140-360 [facility] CenterNeutrophils (%) (Auto)2018-06-11 06:57:00 * Test Item Value Reference Range Interpretation Comments Neutrophils (%) (Auto) (test code = 75723-0) 66.4 38.7-80.0 [facility] CenterLymphocytes (%) (Auto)2018-06-11 06:57:00 * Test Item Value Reference Range Interpretation Comments Lymphocytes (%) (Auto) (test code = 736-9) 15.3 18.0-39.1 L [facility] CenterMonocytes (%) (Auto)2018-06-11 06:57:00* Test Item Value Reference Range Interpretation Comments Monocytes (%) (Auto) (test code = 5905-5) 13.5 4.4-11.3 H [facility] CenterEosinophils (%) (Auto)2018-06-11 06:57:00 * Test Item Value Reference Range Interpretation Comments Eosinophils (%) (Auto) (test code = 713-8) 4.2 0.0-6.0 [facility] CenterBasophils (%) (Auto)2018-06-11 06:57:00* Test Item Value Reference Range Interpretation Comments Basophils (%) (Auto) (test code = 706-2) 0.3 0.0-1.0 [facility] CenterIM GRANULOCYTES %2018-06-11 06:57:00* Test Item Value Reference Range Interpretation Comments IM GRANULOCYTES % (test code = IM GRANULOCYTES %) 0.3 0.0- 1.0 [facility] CenterNeutrophils # (Auto)2018-06-11 06:57:00* Test Item Value Reference Range Interpretation Comments Neutrophils # (Auto) (test code = 751-8) 4.1 2.1-6.9 [facility] CenterLymphocytes # (Auto)2018-06-11 06:57:00* Test Item Value Reference Range Interpretation Comments Lymphocytes # (Auto) (test code = 25038-0) 0.9 1.0-3.2 L [facility] CenterMonocytes # (Auto)2018-06-11 06:57:00* Test Item Value Reference Range Interpretation Comments Monocytes # (Auto) (test code = 742-7) 0.8 0.2-0.8 [facility] CenterEosinophils # (Auto)2018-06-11 06:57:00* Test Item Value Reference Range Interpretation Comments Eosinophils # (Auto) (test code = 711-2) 0.3 0.0-0.4 [facility] CenterBasophils # (Auto)2018-06-11 06:57:00* Test Item Value Reference Range Interpretation Comments Basophils # (Auto) (test code = 704-7) 0.0 0.0-0.1 [facility] CenterAbsolute Immature Granulocyte (auto 2018-06-11 06:57:00* Test Item Value Reference Range Interpretation Comments Absolute Immature Granulocyte (auto (jasvir t code = Absolute Immature Granulocyte (auto) 0.02 0-0.1 [facility] CenterABDOMEN-1VIEW (KUB)2018-06-11 06:49:00 [facility] [address] [address] Patient Name: VIRA MESSINA MR #: [id number] : 1955 Age/Sex: 63/F Req #: [id number] Adm Physician: ALIE DUARTE MD Ordered by: Victoriano Hicks NP Report #: [id number] Location: MED/SURG3 Room/Bed: [facility] Procedure: [id number] DX /ABDOMEN-1VIEW (KUB) Exam Date: 06/11/18 Exam Time: 529 REPORT STATUS: Signed EXAM: ABDOMEN-1VIEW (KUB), supine [...] 06/11/18648 COPY TO: VICTORIANO HICKS NP Carcinoembryonic Unlpnpp1041-87-51 06:08:00 * Test Item Value Reference Range Interpretation Comments Carcinoembryonic Antigen (test code = 2039-6) 4.0 0.0-4.7 Radha ECLIA methodology Nonsmokers <3.9 Smokers <5.6Performed at: [address] [id number] Director: Jung Ramirez MD, Phone: [phone] Regional Medical CenterCarcinoembryonic Qdbsesp7775-14-68 06:08:00* Test Item Value Reference Range Interpretation Comments Carcinoembryonic Antigen (test code = 2039-6) 4.0 0.0-4.7 Radha ECLIA methodology Nonsmokers <3.9 Smokers <5.6Performed at: [facility] [address] [place], [place] [id number] Director: Jung Ramirez MD, Phone: [phone] [facility] WorthCHEST SINGLE (PORTABLE)2018-06-10 06:54:00 [facility] [address] [place] [address] Patient Name: VIRA MESSINA MR #: [id number] : 1955 Age/Sex: 63/F Req #: [id number] Adm Physician: ALIE DUARTE MD Ordered by: SONNY MEDRANO [employer] Report #: [id number] Location: MED/SURG3 Room/Bed: [facility] Procedure: [id number] DX/ CHEST SINGLE (PORTABLE) Exam Date: 06/10/18 [...] SONNY MEDRANO NP ABDOMEN- 1VIEW (KUB)2018-06-10 06:54:00 [facility] [address] [address] Patient Name: VIRA MESSINA MR #: [id number] : 1955 Age/Sex: 63/F Req #: [id number] Adm Physician: ALIE DUARTE MD Ordered by: SONNY MEDRANO [employer] Report #: [id number] Location: MED/SURG3 Room/Bed: [facility] Procedure: [id number] DX/ ABDOMEN-1VIEW (KUB) Exam Date: 06/10/18 Exam [...] Thyroid Stimulating Hormone (TSH) (test code = 35309-6) 1.351 0.350-4.940 [facility] CenterThyroid Stimulating Hormone (TSH) 2018-06-10 06:14:00* Test Item Value Reference Range Interpretation Comments Thyroid Stimulating Hormone (TSH) (test code = 43804-8) 1.351 0.350-4.940 [facility] CenterPhosphorus Zdawh5437-87-80 05:43:00* Test Item Value Reference Range Interpretation Comments Phosphorus Level (test code = XFF9775) 2.7 2.3-4.7 [facility] CenterTotal Lkowuxbmw0412-47-66 05:43:00* Test Item Value Reference Range Interpretation Comments Total Bilirubin (test code = 1975-2) 0.7 0.2-1.2 [facility] CenterAspartate Amino Transf (AST/SGOT) 2018-06-10 05:43:00* Test Item Value Reference Range Interpretation Comments Aspartate Amino Transf (AST/SGOT) (test code = Aspartate Amino Transf (AST/SGOT)) 21 5-34 [facility] CenterAlanine Aminotransferase (ALT/SGPT) 2018-06-10 05:43:00* Test Item Value Reference Range Interpretation Comments Alanine Aminotransferase (ALT/SGPT) (test code = 1742-6) < 6 0-55 [facility] CenterTotal Ewppgmg4283-90-68 05:43:00* Test Item Value Reference Range Interpretation Comments Total Protein (test code = 2885-2) 6.4 6.5-8.1 L [facility] CenterAlbumin2018-11-29 05:43:00* Test Item Value Reference Range Interpretation Comments Albumin (test code = 1751-7) 2.9 3.5-5.0 L [facility] CenterGlobulin2018-11-29 05:43:00* Test Item Value Reference Range Interpretation Comments Globulin (test code = 44884-8) 3.5 2.3-3.5 [facility] CenterAlbumin/Globulin Vzfzs9844-03-89 05:43:00 * Test Item Value Reference Range Interpretation Comments Albumin/Globulin Ratio (test code = 1759-0) 0.8 0.8-2.0 [facility] CenterAlkaline Zdeffqzdiwz2968-08-12 05:43:00* Test Item Value Reference Range Interpretation Comments Alkaline Phosphatase (test code = 6768-6) 65 40-150 [facility] CenterTriglycerides Gaqjm7231-25-13 05:43:00* Test Item Value Reference Range Interpretation Comments Triglycerides Level (test code = 2571-8) 99 0-149 [facility] CenterCholesterol Sumeu2544-89-38 05:43:00* Test Item Value Reference Range Interpretation Comments Cholesterol Level (test code = 2093-3) 134 0-199 Less than 200 mg/dL Low Ylkg725 - 239 mg/dL Borderline Ulbg819 m g/dl and greater High Risk [facility] CenterLDL Uohaiytxyuu8052-98-09 05:43:00* Test Item Value Reference Range Interpretation Comments LDL Cholesterol (test code = 2089-1) 39 60-130 L [facility] CenterHDL Konkawhzvbj0151-28-48 05:43:00* Test Item Value Reference Range Interpretation Comments HDL Cholesterol (test code = 2085-9) 75 40-60 H [facility] CenterCholesterol/HDL Tronl3047-42-89 05:43:00 * Test Item Value Reference Range Interpretation Comments Cholesterol/HDL Ratio (test code = 9830-1) 1.8 3.0-3.6 L [facility] CenterPhosphorus Qbpny2889-41-26 05:43:00* Test Item Value Reference Range Interpretation Comments Phosphorus Level (test code = AWS0211) 2.7 2.3-4.7 [facility] CenterTotal Ywotuisqb8359-19-77 05:43:00* Test Item Value Reference Range Interpretation Comments Total Bilirubin (test code = 1975-2) 0.7 0.2-1.2 [facility] CenterAspartate Amino Transf (AST/SGOT) 2018-06-10 05:43:00* Test Item Value Reference Range Interpretation Comments Aspartate Amino Transf (AST/SGOT) (test code = Aspartate Amino Transf (AST/SGOT)) 21 5-34 [facility] CenterAlanine Aminotransferase (ALT/SGPT) 2018-06-10 05:43:00* Test Item Value Reference Range Interpretation Comments Alanine Aminotransferase (ALT/SGPT) (test code = 1742-6) < 6 0-55 [facility] CenterTotal Anojtrd4268-08-89 05:43:00* Test Item Value Reference Range Interpretation Comments Total Protein (test code = 2885-2) 6.4 6.5-8.1 L [facility] CenterAlbumin2018-11-29 05:43:00* Test Item Value Reference Range Interpretation Comments Albumin (test code = 1751-7) 2.9 3.5-5.0 L [facility] CenterGlobulin2018-11-29 05:43:00* Test Item Value Reference Range Interpretation Comments Globulin (test code = 49844-9) 3.5 2.3-3.5 [facility] CenterAlbumin/Globulin Uzjvf3363-97-76 05:43:00 * Test Item Value Reference Range Interpretation Comments Albumin/Globulin Ratio (test code = 1759-0) 0.8 0.8-2.0 [facility] CenterAlkaline Jxcdhyimilx0423-93-39 05:43:00* Test Item Value Reference Range Interpretation Comments Alkaline Phosphatase (test code = 6768-6) 65 40-150 [facility] CenterTriglycerides Egxjy0446-73-79 05:43:00* Test Item Value Reference Range Interpretation Comments Triglycerides Level (test code = 2571-8) 99 0-149 [facility] CenterCholesterol Dzbgf1002-80-39 05:43:00* Test Item Value Reference Range Interpretation Comments Cholesterol Level (test code = 2093-3) 134 0-199 Less than 200 mg/dL Low Oyue923 - 239 mg/dL Borderline Dfya186 m g/dl and greater High Risk [facility] CenterLDL Gngisuukium5030-54-80 05:43:00* Test Item Value Reference Range Interpretation Comments LDL Cholesterol (test code = 2089-1) 39 60-130 L [facility] CenterHDL Kngbzixlnfm7201-36-66 05:43:00* Test Item Value Reference Range Interpretation Comments HDL Cholesterol (test code = 2085-9) 75 40-60 H [facility] CenterCholesterol/HDL Ezrcw0713-02-22 05:43:00 * Test Item Value Reference Range Interpretation Comments Cholesterol/HDL Ratio (test code = 9830-1) 1.8 3.0-3.6 L [facility] CenterHemoglobin A1c Zpxwswq7847-71-74 05:36:00 * Test Item Value Reference Range Interpretation Comments Hemoglobin A1c Percent (test code = Hemoglobin A1c Percent) 4.5 4.0-7.0 [facility] CenterHemoglobin A1c Nibsctx8637-58-58 05:36:00 * Test Item Value Reference Range Interpretation Comments Hemoglobin A1c Percent (test code = Hemoglobin A1c Percent) 4.5 4.0-7.0 [facility] CenterAmmonia2018-11-29 05:26:00* Test Item Value Reference Range Interpretation Comments Ammonia (test code = 40191-9) 57 31-123 [facility]2018-11-29 05:26:00* Test Item Value Reference Range Interpretation Comments Ammonia (test code = 25785-0) 57 31-123 [facility] CenterCT ABDOMEN/PELVIS DR6012-04-10 18:36:[address] [address] Patient Name: VIRA MESSINA MR #: [id number] : 1955 Age/Sex: 63/F Req #: [id number] Adm Physician: Ordered by: URBANO CALABRESE [employer] Report #: [id number] Location: ER Room/Bed: Procedure: [id number] C T/CT ABDOMEN/PELVIS WO Exam Date: 06/09/18 Exam Time : 1725 REPORT STATUS: Signed EXA M: CT Abdomen and Pelvis WITHOUT contrast INDICATION: rule out obst ruction. oral contract only. Allergy to IV con [id number] COMPARISON : None. TECHNIQUE: Abdomen and pelvis [...] PY TO: URBANO CALABRESE NP Lactic Acid Hiuzp0918-25-94 15:28:00* Test Item Value Reference Range Interpretation Comments Lactic Acid Level (test code = Lactic Acid Level) 9.9 4.5- 19.8 [facility] CenterLactic Acid Hfois8805-81-97 15:28:00* Test Item Value Reference Range Interpretation Comments Lactic Acid Level (test code = Lactic Acid Level) 9.9 4.5- 19.8 [facility] CenterUrine AJP3865-10-04 15:14:00* Test Item Value Reference Range Interpretation Comments Urine WBC (test code = 5821-4) 0-5 0-5 [facility] CenterUrine IHK1416-85-22 15:14:00* Test Item Value Reference Range Interpretation Comments Urine RBC (test code = 97212-9) 0-5 0-5 [facility] CenterUrine Dsvqwpnh3826-07-76 15:14:00* Test Item Value Reference Range Interpretation Comments Urine Bacteria (test code = 79768-3) FEW NONE [facility] CenterUrine Epithelial Gcclp1458-45-45 15:14:00 * Test Item Value Reference Range Interpretation Comments Urine Epithelial Cells (test code = 46926-1) FEW NONE [facility] CenterUrine Amorphous Dboaswdp3846-49-90 15:14:00* Test Item Value Reference Range Interpretation Comments Urine Amorphous Sediment (test code = 8246-1) MODERATE FEW H [facility] CenterUrine Hyaline Sfopa2151-08-38 15:14:00* Test Item Value Reference Range Interpretation Comments Urine Hyaline Casts (test code = 61124-8) 2-5 0-1 H [facility] CenterUrine JDJ3375-02-45 15:14:00* Test Item Value Reference Range Interpretation Comments Urine WBC (test code = 5821-4) 0-5 0-5 [facility] CenterUrine RTF7656-01-45 15:14:00* Test Item Value Reference Range Interpretation Comments Urine RBC (test code = 25259-4) 0-5 0-5 [facility] CenterUrine Tsjscppl2778-30-82 15:14:00* Test Item Value Reference Range Interpretation Comments Urine Bacteria (test code = 86043-1) FEW NONE [facility] CenterUrine Epithelial Oklhc4187-35-31 15:14:00 * Test Item Value Reference Range Interpretation Comments Urine Epithelial Cells (test code = 14973-4) FEW NONE [facility] CenterUrine Amorphous Uyqcsfuk7384-06-40 15:14:00* Test Item Value Reference Range Interpretation Comments Urine Amorphous Sediment (test code = 8246-1) MODERATE FEW H [facility] CenterUrine Hyaline Mnpod1447-02-64 15:14:00* Test Item Value Reference Range Interpretation Comments Urine Hyaline Casts (test code = 96664-8) 2-5 0-1 H [facility] CenterProthrombin Qsom1661-37-76 15:09:00* Test Item Value Reference Range Interpretation Comments Prothrombin Time (test code = 5902-2) 11.1 11.9-14.5 L [facility] CenterProthromb Time International Ratio 2018-06-09 15:09:00* Test Item Value Reference Range Interpretation Comments Prothromb Time International Ratio (test code = 6301-6) 0.74 Oral Anticoagulant Therapy INR Values:1. Low Intensity Therapy 1.5 - 2.02 . Moderate Intensity Therapy 2.0 - 3.03. High Intensity Therapy(1) 2.5 - 3. 54. High Intensity Therapy(2) 3.0 - 4.05. Panic Value INR > 5.0 [facility] CenterActivated Partial Thromboplast Time 2018-06-09 15:09:00* Test Item Value Reference Range Interpretation Comments Activated Partial Thromboplast Time (test code = 76548-8) 30.3 23.8-35.5 [facility] CenterAmylase Slwja1846-21-76 15:09:00* Test Item Value Reference Range Interpretation Comments Amylase Level (test code = 1798-8) 45 25-125 [facility] CenterLipase2018-11-28 15:09:00* Test Item Value Reference Range Interpretation Comments Lipase (test code = 3040-3) 8 [facility] CenterProthrombin Ulld5710-44-58 15:09:00* Test Item Value Reference Range Interpretation Comments Prothrombin Time (test code = 5902-2) 11.1 11.9-14.5 L [facility] CenterProthromb Time International Ratio 2018-06-09 15:09:00* Test Item Value Reference Range Interpretation Comments Prothromb Time International Ratio (test code = 6301-6) 0.74 Oral Anticoagulant Therapy INR Values:1. Low Intensity Therapy 1.5 - 2.02 . Moderate Intensity Therapy 2.0 - 3.03. High Intensity Therapy(1) 2.5 - 3. 54. High Intensity Therapy(2) 3.0 - 4.05. Panic Value INR > 5.0 [facility] CenterActivated Partial Thromboplast Time 2018-06-09 15:09:00* Test Item Value Reference Range Interpretation Comments Activated Partial Thromboplast Time (test code = 73823-8) 30.3 23.8-35.5 [facility] CenterAmylase Fpqqr6245-77-79 15:09:00* Test Item Value Reference Range Interpretation Comments Amylase Level (test code = 1798-8) 45 25-125 [facility] CenterLipase2018-11-28 15:09:00* Test Item Value Reference Range Interpretation Comments Lipase (test code = 3040-3) 8 [facility] CenterUrine Ziyhz6382-09-66 15:03:00* Test Item Value Reference Range Interpretation Comments Urine Color (test code = 5778-6) STRAW YELLOW [facility] CenterUrine Vqdwyxv0934-02-41 15:03:00* Test Item Value Reference Range Interpretation Comments Urine Clarity (test code = 03360-1) SL CLOUDY CLEAR [facility] CenterUrine Specific Uyozosk6372-33-32 15:03:00 * Test Item Value Reference Range Interpretation Comments Urine Specific Terreton (test code = 5811-5) 1.025 1.010-1.02 5 [facility] CenterUrine vV1330-02-26 15:03:00* Test Item Value Reference Range Interpretation Comments Urine pH (test code = 59354-9) 5 5-7 [facility] CenterUrine Leukocyte Yvferbak8612-25-72 15:03:00* Test Item Value Reference Range Interpretation Comments Urine Leukocyte Esterase (test code = 5799-2) NEGATIVE NEGATIVE [facility] CenterUrine Kylbsrr7195-49-18 15:03:00* Test Item Value Reference Range Interpretation Comments Urine Nitrite (test code = 25431-0) NEGATIVE NEGATIVE [facility] CenterUrine Lczrbay7918-29-78 15:03:00* Test Item Value Reference Range Interpretation Comments Urine Protein (test code = 5804-0) NEGATIVE NEGATIVE [facility] Glucose (UA)2018-06-09 15:03:00* Test Item Value Reference Range Interpretation Comments Urine Glucose (UA) (test code = 2349-9) NEGATIVE NEGATIVE [facility] CenterUrine Latcahk3955-04-74 15:03:00* Test Item Value Reference Range Interpretation Comments Urine Ketones (test code = 00408-3) NEGATIVE NEGATIVE [facility] Ydvyxvqutdje0877-98-08 15:03:00* Test Item Value Reference Range Interpretation Comments Urine Urobilinogen (test code = 59536-2) 0.2 0.2-1 [facility] CenterUrine Kioyggnwv7342-62-78 15:03:00* Test Item Value Reference Range Interpretation Comments Urine Bilirubin (test code = 1978-6) NEGATIVE NEGATIVE [facility] CenterUrine Lfcbc0531-94-36 15:03:00* Test Item Value Reference Range Interpretation Comments Urine Blood (test code = 64651-4) 1+ NEGATIVE H [facility] CenterUrine Occg0996-58-98 15:03:00* Test Item Value Reference Range Interpretation Comments Urine Test (test code = 2106-3) NEGATIVE NEGATIVE [facility] CenterUrine Gyqsm0200-35-60 15:03:00* Test Item Value Reference Range Interpretation Comments Urine Color (test code = 5778-6) STRAW YELLOW [facility] CenterUrine Tbqvana4444-19-81 15:03:00* Test Item Value Reference Range Interpretation Comments Urine Clarity (test code = 51714-5) SL CLOUDY CLEAR [facility] CenterUrine Specific Uddmhaz5310-14-52 15:03:00 * Test Item Value Reference Range Interpretation Comments Urine Specific Terreton (test code = 5811-5) 1.025 1.010-1.02 5 [facility] CenterUrine wQ8000-87-49 15:03:00* Test Item Value Reference Range Interpretation Comments Urine pH (test code = 83779-3) 5 5-7 [facility] CenterUrine Leukocyte Owrjgycc5888-90-96 15:03:00* Test Item Value Reference Range Interpretation Comments Urine Leukocyte Esterase (test code = 5799-2) NEGATIVE NEGATIVE [facility] Iucshky6466-94-11 15:03:00* Test Item Value Reference Range Interpretation Comments Urine Nitrite (test code = 98577-4) NEGATIVE NEGATIVE [facility] CenterUrine Nqveuyr0680-88-34 15:03:00* Test Item Value Reference Range Interpretation Comments Urine Protein (test code = 5804-0) NEGATIVE NEGATIVE [facility] Glucose (UA)2018-06-09 15:03:00* Test Item Value Reference Range Interpretation Comments Urine Glucose (UA) (test code = 2349-9) NEGATIVE NEGATIVE [facility] CenterUrine Vxcvqzt2212-21-85 15:03:00* Test Item Value Reference Range Interpretation Comments Urine Ketones (test code = 34357-2) NEGATIVE NEGATIVE [facility] CenterUrine Guxavxddilkr8050-77-21 15:03:00* Test Item Value Reference Range Interpretation Comments Urine Urobilinogen (test code = 09581-7) 0.2 0.2-1 [facility] CenterUrine Aojfavflm3552-58-95 15:03:00* Test Item Value Reference Range Interpretation Comments Urine Bilirubin (test code = 1978-6) NEGATIVE NEGATIVE [facility] CenterUrine Xwflu5524-44-79 15:03:00* Test Item Value Reference Range Interpretation Comments Urine Blood (test code = 83050-4) 1+ NEGATIVE H [facility] WorthUrine Wsns2009-31-21 15:03:00* Test Item Value Reference Range Interpretation Comments Urine Test (test code = 2106-3) NEGATIVE NEGATIVE [facility] WorthCHES SINGLE (PORTABLE)2018-01-28 17:17:00 [facility] [address] [address] Patient Name: VIRA MESSINA MR #: [id number] : 1955 Age/Sex: 62/F Req #: [id number] Adm Physician: Ordered by: FIORDALIZA NICHOLE MD Report #: [id number] Location: ER Room/Bed: Procedure: [id number] DX/CHEST SINGLE (PORTABLE) Exam Date: 01/28/18 Exam [...] NICHOLE MD SP LUMBAR AP LATERAL 2-3VWS [place] [id number] Patient Name: VIRA MESSINA MR #: [id number] : 1955 Age/Sex: 62/F Req #: [id number] Adm Physician: Ordered by: NATTY TEE MD Report #: [id number] Location: ER Room/Bed: Procedure: [id number] DX/SP LUMBAR AP LATERAL 2-3VW S Exam [...]
--- NOTE | 2020-06-14 04:10 | Diagnostic Imaging Report ---
EXAMINATION: CHEST SINGLE (PORTABLE) INDICATION: ^Y ^SOB, H/O COPD AND CHF ^[id number] ^0315 ^Y COMPARISON: Chest x-ray 05/01/2027: Chest CT 03/19/2020 FINDINGS: TUBES and LINES: None. LUNGS: Emphysematous changes.. Lungs are clear. No consolidations. PLEURA: No pleural effusion or pneumothorax. HEART AND MEDIASTINUM: The cardiomediastinal silhouette is unremarkable. Aortic calcifications. BONES AND SOFT TISSUES: No acute osseous lesion. Soft tissues are unremarkable. Stable multilevel thoracic vertebral body compression fractures. UPPER ABDOMEN: No free air under the diaphragm. IMPRESSION: Pulmonary emphysema. Signed by: Frederick Alvarez DO on 06/14/2020 4:07 AM
== END 2020-06-14 05:02 | disposition home or self-care (01) ==
LOC: ER 03:13
DX: J44.9 Chronic obstructive pulmonary disease, unspecified (principal); R06.02 Shortness of breath; R05 Cough; I50.9 Heart failure, unspecified; Z86.73 Personal history of transient ischemic attack (TIA), and cerebral infarction without residual deficits; F17.210 Nicotine dependence, cigarettes, uncomplicated
CPT/HCPCS: 36415; 71045; 80053; 82550; 82553; 83880; 84484; 85025; 93005; 99284; J2930

== ENCOUNTER 2020-07-07 03:23 | Emergency (ER) | payer MEDICARE ==
[~2020-07-07] VITALS: Ht 170.2 cm; Wt 65.8 kg
[2020-07-07 03:38] LABS: BASOPHILS # (AUTO) 0.1 (0.0-0.1); BASOPHILS % 0.7 % (0.0-1.0); EOSINOPHILS # (AUTO) 0.3 (0.0-0.4); HEMATOCRIT 35.3 % (34.2-44.1); HEMOGLOBIN 11.4 g/dL (12.0-16.0); LYMPHOCYTES # (AUTO) 2.8 (1.0-3.2); LYMPHOCYTES % 32.4 % (18.0-39.1); MEAN CORPUSCULAR HEMOGLOBIN 28.1 pg (28-32); MEAN CORPUSCULAR HGB CONC 32.3 g/dL (31-35); MEAN CORPUSCULAR VOLUME 86.9 fL (81-99); MONOCYTES # (AUTO) 1.1 (0.2-0.8); NEUTROPHILS # (AUTO) 4.4 (2.1-6.9); NEUTROPHILS % 50.7 % (38.7-80.0); PLATELET COUNT 288 x10e3/uL (140-360); RED BLOOD COUNT 4.06 x10e6/uL (3.6-5.1); RED CELL DISTRIBUTION WIDTH 16.3 % (11.7-14.4)
[2020-07-07 03:47] LABS: INR 0.88; PROTHROMBIN TIME 12.4 seconds (11.9-14.5)
[2020-07-07 03:57] LABS: ALBUMIN/GLOBULIN RATIO 1.1 (0.8-2.0); ALKALINE PHOSPHATASE 78 IU/L (40-150); ANION GAP 17.7 mmol/L (8-16); BLOOD UREA NITROGEN 9 mg/dL (7-26); BUN/CREATININE RATIO 12 (6-25); CALCIUM 9.6 mg/dL (8.4-10.2); CARBON DIOXIDE 24 mmol/L (22-29); CHLORIDE 99 mmol/L (98-107); CREATINE KINASE 48 IU/L (29-168); CREATININE, SERUM 0.78 mg/dL (0.57-1.11); EST GLOMERULAR FILTRATION RATE > 60 ML/MIN (60-); GLUCOSE 96 mg/dL (74-118); POTASSIUM 3.7 mmol/L (3.5-5.1); SODIUM 137 mmol/L (136-145)
[2020-07-07 03:58] LABS: ALANINE AMINOTRANSFERASE < 6 IU/L (0-55)
[2020-07-07 05:08] VITALS: BP 100/71
== END 2020-07-07 05:29 | disposition home or self-care (01) ==
LOC: ER 03:35
DX: R07.9 Chest pain, unspecified (principal); J44.9 Chronic obstructive pulmonary disease, unspecified; I50.9 Heart failure, unspecified; Z86.73 Personal history of transient ischemic attack (TIA), and cerebral infarction without residual deficits; F17.210 Nicotine dependence, cigarettes, uncomplicated
CPT/HCPCS: 36415; 71046; 80053; 82550; 82553; 84484; 85025; 85610; 85730; 99284

== ENCOUNTER 2020-07-18 19:17 | Emergency (ER) | payer MEDICARE | END 2020-07-18 19:50 | disposition left against medical advice (07) | LOC: ER 19:17 | DX: M62.838 Other muscle spasm (principal); Z53.21 Procedure and treatment not carried out due to patient leaving prior to being seen by health care provider ==

== ENCOUNTER 2020-08-23 02:08 | Observation (INO) | payer MEDICARE, OTHER ==
[~2020-08-23] VITALS: Ht 170.2 cm; Wt 65.8 kg
[2020-08-23] MEDS ORDERED: METHYLPREDNISOLONE SOD SUCC 125 MG/2ML VIAL IV ONE (02:15)
[2020-08-23] MEDS ORDERED: ALBUTEROL SULF 0.083% NEB SOLN 3 ML NEB ONE (02:29)
[2020-08-23] MEDS ORDERED: IPRATROPIUM BROMIDE 0.02% 2.5 ML NEB ONE (02:30)
[2020-08-23 02:31] LABS: BASOPHILS % 0.5 % (0.0-1.0); EOSINOPHILS # (AUTO) 0.1 (0.0-0.4); EOSINOPHILS % 1.5 % (0.0-6.0); HEMATOCRIT 27.4 % (34.2-44.1); HEMOGLOBIN 8.4 g/dL (12.0-16.0); LYMPHOCYTES # (AUTO) 1.9 (1.0-3.2); LYMPHOCYTES % 23.6 % (18.0-39.1); MEAN CORPUSCULAR HEMOGLOBIN 28.6 pg (28-32); MEAN CORPUSCULAR HGB CONC 30.7 g/dL (31-35); MEAN CORPUSCULAR VOLUME 93.2 fL (81-99); MONOCYTES # (AUTO) 0.8 (0.2-0.8); MONOCYTES % 10.2 % (4.4-11.3); NEUTROPHILS % 63.8 % (38.7-80.0); PLATELET COUNT 345 x10e3/uL (140-360); RED BLOOD COUNT 2.94 x10e6/uL (3.6-5.1); RED CELL DISTRIBUTION WIDTH 18.6 % (11.7-14.4)
[2020-08-23 02:40] LABS: INR 0.9; PROTHROMBIN TIME 12.7 seconds (11.9-14.5)
[2020-08-23 02:41] LABS: PARTIAL THROMBOPLASTIN TIME 26.9 seconds (23.8-35.5)
[2020-08-23 02:51] LABS: ALANINE AMINOTRANSFERASE 27 IU/L (0-55); ALBUMIN 3.1 g/dL (3.5-5.0); ALBUMIN/GLOBULIN RATIO 0.8 (0.8-2.0); ALKALINE PHOSPHATASE 120 IU/L (40-150); BLOOD UREA NITROGEN 8 mg/dL (7-26); BUN/CREATININE RATIO 12 (6-25); CALCIUM 8.5 mg/dL (8.4-10.2); CARBON DIOXIDE 26 mmol/L (22-29); CHLORIDE 99 mmol/L (98-107); CREATINE KINASE 698 IU/L (29-168); CREATININE, SERUM 0.65 mg/dL (0.57-1.11); EST GLOMERULAR FILTRATION RATE > 60 ML/MIN (60-); GLUCOSE 102 mg/dL (74-118); SODIUM 136 mmol/L (136-145)
[2020-08-23] MEDS ORDERED: SODIUM CHLORIDE 0.9% 1000ML 1,000 ML IV ONE (03:45)
[2020-08-23] MEDS ORDERED: AZITHROMYCIN 500MG/SOD CHL 0.9% 250ML BAG IV SCH (03:45)
[2020-08-23] MEDS: ALBUTEROL SULF 0.083% NEB SOLN 3 ML NEB NEB SCH ×3 (03:45→11:31)
[2020-08-23] MEDS ORDERED: CEFTRIAXONE SOD 1 GRAM/0.9% SOD CHL 50ML BAG IV SCH (03:45)
[2020-08-23] MEDS ORDERED: CEFTRIAXONE SOD 1 GM VIAL ONE (04:00)
[2020-08-23] MEDS ORDERED: AZITHROMYCIN 500MG/NS 250 ML 250 ML IV SCH (04:00)
[2020-08-23] MEDS ORDERED: CEFTRIAXONE SOD 1 GM/NS 50 ML 50 ML IV SCH (04:00)
[2020-08-23] MEDS ORDERED: HYDROCODONE/APAP 10MG-325MG TAB PO ONE (04:45)
[2020-08-23] MEDS: IPRATROPIUM BROMIDE 0.02% 2.5 ML NEB NEB SCH ×2 (06:00→11:32)
[2020-08-23] MEDS ORDERED: METHYLPREDNISOLONE SOD SUCC 40 MG/ML VIAL 1ML IV SCH (07:00)
[2020-08-23 09:05] VITALS: BP 97/62
[2020-08-23] MEDS ORDERED: HYDROCODON-ACE1 EAC9 (09:23)
[2020-08-23 10:06] VITALS: BP 97/62
[2020-08-23 10:09] VITALS: BP 97/62
[2020-08-23 12:40] VITALS: BP 103/70
[2020-08-23] MEDS ORDERED: HYDROCODONE/APAP 10MG-325MG TAB PO PRN (13:15)
[2020-08-23] MEDS ORDERED: ZOLPIDEM TARTRATE 10 MG TAB PO PRN (13:15)
[2020-08-23] MEDS ORDERED: HYDRALAZINE HCL 20 MG/ML VIAL IV PRN (13:45)
[2020-08-23] MEDS ORDERED: ACETAMINOPHEN 325 MG TAB PO PRN (13:45)
[2020-08-23] MEDS ORDERED: KETOROLAC TROMETHAMINE 30 MG/ML VIAL IV PRN (13:45)
[2020-08-23] MEDS ORDERED: ONDANSETRON HCL INJ 2MG/ML 2ML 2 MG/ML VIAL IV PRN (13:45)
[2020-08-23] MEDS ORDERED: BALSAM PERU/CASTOR OIL 60 GM OINT...G. TP SCH (14:30)
[2020-08-23] MEDS ORDERED: GABAPENTIN 300 MG CAP PO SCH (15:00)
[2020-08-24] MEDS ORDERED: METHYLPREDNISOLONE SOD SUCC 40 MG/ML VIAL 1ML IV SCH
[2020-08-24] MEDS ORDERED: CLOPIDOGREL BISULFATE 75 MG TAB PO SCH (09:00)
== END 2020-08-23 15:19 | disposition home or self-care (01) ==
LOC: ER 02:13 → INTOOBSV 03:42 → ERHOLD 03:42 → MED/SURG3 07:54
PROVIDERS: ADMIT Internal Medicine; ATTEND Internal Medicine
DX: J44.1 Chronic obstructive pulmonary disease with (acute) exacerbation (principal); F17.210 Nicotine dependence, cigarettes, uncomplicated; Z88.5 Allergy status to narcotic agent; Z91.041 Radiographic dye allergy status; I69.354 Hemiplegia and hemiparesis following cerebral infarction affecting left non-dominant side; M62.82 Rhabdomyolysis; M80.08XA Age-related osteoporosis with current pathological fracture, vertebra(e), initial encounter for fracture; D50.0 Iron deficiency anemia secondary to blood loss (chronic); Z80.9 Family history of malignant neoplasm, unspecified; Z20.822 Contact with and (suspected) exposure to COVID-19
CPT/HCPCS: 36415; 71045; 80053; 82550; 82553; 83880; 84484; 85025; 85610; 85730; 87040; 93306; 94640; 99251; 99284; G0378; J0456; J0696 ×2; J2920; J2930; J7030; U0002

== ENCOUNTER 2020-08-25 09:26 | Inpatient (IN) | payer MEDICARE, OTHER ==
[~2020-08-25] VITALS: Ht 167.6 cm; Wt 57.3 kg
[~2020-08-25 09:26] MED LIST changes: +HYDROCODON-ACE1 EAC9
[2020-08-25] MEDS ORDERED: CHARCOAL/SORBITOL LIQD 25 GM/120 ML TUBE NG STA (09:38)
[2020-08-25 10:30] LABS: BASOPHILS % 0.2 % (0.0-1.0); EOSINOPHILS % 0.2 % (0.0-6.0); HEMATOCRIT 24.9 % (34.2-44.1); HEMOGLOBIN 7.9 g/dL (12.0-16.0); LYMPHOCYTES # (AUTO) 1.1 (1.0-3.2); LYMPHOCYTES % 10.9 % (18.0-39.1); MEAN CORPUSCULAR HEMOGLOBIN 28.5 pg (28-32); MEAN CORPUSCULAR HGB CONC 31.7 g/dL (31-35); MEAN CORPUSCULAR VOLUME 89.9 fL (81-99); MONOCYTES # (AUTO) 0.8 (0.2-0.8); MONOCYTES % 7.9 % (4.4-11.3); NEUTROPHILS # (AUTO) 7.8 (2.1-6.9); NEUTROPHILS % 80.3 % (38.7-80.0); PLATELET COUNT 470 x10e3/uL (140-360); RED BLOOD COUNT 2.77 x10e6/uL (3.6-5.1); RED CELL DISTRIBUTION WIDTH 18.5 % (11.7-14.4)
[2020-08-25] MEDS ORDERED: NALOXONE HCL INJ 0.4 MG/ML AMP IV PRN (10:30)
[2020-08-25 10:41] LABS: ALANINE AMINOTRANSFERASE 14 IU/L (0-55); ALBUMIN 2.7 g/dL (3.5-5.0); ALBUMIN/GLOBULIN RATIO 0.8 (0.8-2.0); ALKALINE PHOSPHATASE 127 IU/L (40-150); ANION GAP 14.8 mmol/L (8-16); BLOOD UREA NITROGEN 7 mg/dL (7-26); BUN/CREATININE RATIO 11 (6-25); CALCIUM 7.8 mg/dL (8.4-10.2); CARBON DIOXIDE 23 mmol/L (22-29); CHLORIDE 100 mmol/L (98-107); CREATININE, SERUM 0.62 mg/dL (0.57-1.11); EST GLOMERULAR FILTRATION RATE > 60 ML/MIN (60-); GLUCOSE 86 mg/dL (74-118); SODIUM 135 mmol/L (136-145)
[2020-08-25 10:42] LABS: POTASSIUM 2.8 mmol/L (3.5-5.1)
[2020-08-25 10:49] LABS: INR 0.98; PROTHROMBIN TIME 13.6 seconds (11.9-14.5)
[2020-08-25] MEDS ORDERED: HALOPERIDOL LACTATE 5 MG/ML VIAL IM ONE (11:00)
[2020-08-25] MEDS ORDERED: POTASSIUM CHLORIDE 10MEQ EA PO ONE (11:30)
[2020-08-25] MEDS ORDERED: POTASSIUM CHLORIDE 20 MEQ TAB CR PO STA (11:41)
[2020-08-25] MEDS ORDERED: POTASSIUM CHLORIDE 10MEQ/100ML 100 ML IV ONE (11:45)
[2020-08-25] MEDS ORDERED: ASPIRIN 81 MG CHEW TAB PO ONE (14:00)
[2020-08-25 15:37] VITALS: BP 133/86
[2020-08-25 16:33] VITALS: BP 133/56
[2020-08-25] MEDS ORDERED: ONDANSETRON HCL INJ 2MG/ML 2ML 2 MG/ML VIAL IV PRN (17:30)
[2020-08-25] MEDS ORDERED: METOPROLOL TARTRATE INJ 1 MG/ML VIAL IV PRN (17:30)
[2020-08-25] MEDS ORDERED: POLYETHYLENE GLYCOL 3350 17 GM PACK PO PRN (17:30)
[2020-08-25 18:36] VITALS: BP 133/86
[2020-08-25] MEDS ORDERED: ALBUTEROL SULFATE HFA 8GM INHALATION AEROSOL INH PRN (19:30)
[2020-08-25 20:00] VITALS: BP 133/81
[2020-08-25 21:00] VITALS: BP 133/81
[2020-08-25 21:09] LABS: CREATINE KINASE 112 IU/L (29-168)
[2020-08-25 21:12] LABS: MAGNESIUM 1.4 MG/DL (1.3-2.1); PHOSPHORUS 2.6 MG/DL (2.3-4.7)
[2020-08-25 21:14] LABS: CREATINE KINASE 111 IU/L (29-168)
[2020-08-25] MEDS: GABAPENTIN 300 MG CAP PO SCH (21:44)
[2020-08-25] MEDS ORDERED: NICOTINE 14 MG/EA PATCH TOP ONE (23:15)
[2020-08-26 01:54] VITALS: BP 132/68
[2020-08-26 04:00] VITALS: BP 100/85
[2020-08-26] MEDS ORDERED: ALBUTEROL/IPRATROPIUM 3 ML NEB NEB PRN (05:45)
[2020-08-26 06:30] LABS: BASOPHILS % 0.2 % (0.0-1.0); EOSINOPHILS % 0.2 % (0.0-6.0); HEMATOCRIT 25.8 % (34.2-44.1); LYMPHOCYTES # (AUTO) 1.2 (1.0-3.2); LYMPHOCYTES % 11.8 % (18.0-39.1); MEAN CORPUSCULAR HEMOGLOBIN 28.7 pg (28-32); MEAN CORPUSCULAR VOLUME 92.5 fL (81-99); MONOCYTES # (AUTO) 0.9 (0.2-0.8); MONOCYTES % 8.9 % (4.4-11.3); NEUTROPHILS # (AUTO) 7.9 (2.1-6.9); NEUTROPHILS % 78.2 % (38.7-80.0); PLATELET COUNT 403 x10e3/uL (140-360); RED BLOOD COUNT 2.79 x10e6/uL (3.6-5.1); RED CELL DISTRIBUTION WIDTH 18.5 % (11.7-14.4)
[2020-08-26 07:04] LABS: ALANINE AMINOTRANSFERASE 14 IU/L (0-55); ALBUMIN 2.9 g/dL (3.5-5.0); ALBUMIN/GLOBULIN RATIO 0.8 (0.8-2.0); ALKALINE PHOSPHATASE 152 IU/L (40-150); ANION GAP 11.6 mmol/L (8-16); BLOOD UREA NITROGEN 9 mg/dL (7-26); BUN/CREATININE RATIO 14 (6-25); CALCIUM 8.3 mg/dL (8.4-10.2); CARBON DIOXIDE 26 mmol/L (22-29); CHLORIDE 104 mmol/L (98-107); CREATININE, SERUM 0.63 mg/dL (0.57-1.11); EST GLOMERULAR FILTRATION RATE > 60 ML/MIN (60-); GLUCOSE 77 mg/dL (74-118); SODIUM 139 mmol/L (136-145)
[2020-08-26 07:10] LABS: POTASSIUM 2.6 mmol/L (3.5-5.1)
[2020-08-26] MEDS ORDERED: POTASSIUM CHLORIDE 20MEQ/100ML 100 ML IV ONE ×2 (07:30→09:30)
[2020-08-26] MEDS ORDERED: FAMOTIDINE 20 MG TAB PO SCH (07:30)
[2020-08-26 07:34] LABS: MAGNESIUM 1.5 MG/DL (1.3-2.1); PHOSPHORUS 2.6 MG/DL (2.3-4.7)
[2020-08-26 07:43] LABS: CREATINE KINASE MB 1.6 ng/mL (0-5.0)
[2020-08-26] MEDS ORDERED: POTASSIUM CHLORIDE 20 MEQ TAB CR PO STA (07:56)
[2020-08-26 08:00] VITALS: BP 136/73
[2020-08-26 08:15] LABS: FERRITIN 87.77 ng/mL (4.63-204.00)
[2020-08-26] MEDS: GABAPENTIN 300 MG CAP PO SCH (08:22)
[2020-08-26 09:00] VITALS: BP 136/73
[2020-08-26] MEDS ORDERED: NICOTINE 14 MG/EA PATCH TOP SCH (09:00)
[2020-08-26] MEDS ORDERED: CLOPIDOGREL BISULFATE 75 MG TAB PO SCH (09:00)
[2020-08-26] MEDS ORDERED: DOCUSATE SODIUM 100 MG CAP PO SCH (09:00)
== END 2020-08-26 11:15 | disposition left against medical advice (07) | DRG 918 ==
LOC: ER 09:53 → ERHOLD 13:59 → MED/SURG3 15:01 → OBSVTOIN 19:01
PROVIDERS: ADMIT Internal Medicine; ATTEND Internal Medicine
DX: T39.1X4A Poisoning by 4-Aminophenol derivatives, undetermined, initial encounter (principal); I69.354 Hemiplegia and hemiparesis following cerebral infarction affecting left non-dominant side; M80.00XA Age-related osteoporosis with current pathological fracture, unspecified site, initial encounter for fracture; T50.7X Poisoning by, adverse effect of and underdosing of analeptics and opioid receptor antagonists; T42.6X4A Poisoning by other antiepileptic and sedative-hypnotic drugs, undetermined, initial encounter; R00.0 Tachycardia, unspecified; E87.6 Hypokalemia; D63.8 Anemia in other chronic diseases classified elsewhere; R19.7 Diarrhea, unspecified; L89.622 Pressure ulcer of left heel, stage 2; D47.3 Essential (hemorrhagic) thrombocythemia; J44.9 Chronic obstructive pulmonary disease, unspecified; G89.29 Other chronic pain; F17.210 Nicotine dependence, cigarettes, uncomplicated; Z20.822 Contact with and (suspected) exposure to COVID-19
CPT/HCPCS: 36415; 71045; 80053; 80329; 82550; 82553; 82607; 82728; 82746; 83540; 83735; 83880; 84100; 84466; 84484; 85025; 85045; 85610; 99285; J1630; J2310; J3480; U0002

== ENCOUNTER 2020-10-18 21:52 | Emergency (ER) | payer MEDICARE, OTHER ==
[~2020-10-18] VITALS: Ht 167.6 cm; Wt 57.2 kg
[2020-10-19] MEDS ORDERED: ALBUTEROL SULF 0.083% NEB SOLN 3 ML NEB ONE (00:01)
[2020-10-19] MEDS ORDERED: HYDROCODONE/APAP 5MG-325MG TAB PO ONE (00:45)
== END 2020-10-19 01:35 | disposition home or self-care (01) ==
LOC: ER 22:08
DX: S42.032A Displaced fracture of lateral end of left clavicle, initial encounter for closed fracture (principal); S51.012A Laceration without foreign body of left elbow, initial encounter; S00.83XA Contusion of other part of head, initial encounter; L89.109 Pressure ulcer of unspecified part of back, unspecified stage; W18.30XA Fall on same level, unspecified, initial encounter; Y93.01 Activity, walking, marching and hiking; Y92.008 Other place in unspecified non-institutional (private) residence as the place of occurrence of the external cause; I10 Essential (primary) hypertension; J44.9 Chronic obstructive pulmonary disease, unspecified; I50.9 Heart failure, unspecified; F41.9 Anxiety disorder, unspecified; Z86.73 Personal history of transient ischemic attack (TIA), and cerebral infarction without residual deficits; Z96.642 Presence of left artificial hip joint; F17.210 Nicotine dependence, cigarettes, uncomplicated
CPT/HCPCS: 70450; 72125; 99284

== ENCOUNTER 2020-11-27 16:27 | Emergency (ER) | payer MEDICARE, OTHER ==
[~2020-11-27] VITALS: Ht 167.6 cm; Wt 57.2 kg
[2020-11-27] MEDS ORDERED: SODIUM CHLORIDE 0.9% 1000ML 1,000 ML IV ONE (17:30)
[2020-11-27 18:11] LABS: BASOPHILS # (AUTO) 0.1 (0.0-0.1); BASOPHILS % 0.6 % (0.0-1.0); EOSINOPHILS # (AUTO) 0.3 (0.0-0.4); EOSINOPHILS % 3.6 % (0.0-6.0); HEMATOCRIT 23.5 % (34.2-44.1); HEMOGLOBIN 7.5 g/dL (12.0-16.0); LYMPHOCYTES # (AUTO) 1.2 (1.0-3.2); LYMPHOCYTES % 14.6 % (18.0-39.1); MEAN CORPUSCULAR HEMOGLOBIN 28.1 pg (28-32); MEAN CORPUSCULAR HGB CONC 31.9 g/dL (31-35); MONOCYTES # (AUTO) 0.9 (0.2-0.8); MONOCYTES % 10.4 % (4.4-11.3); NEUTROPHILS # (AUTO) 5.9 (2.1-6.9); NEUTROPHILS % 70.4 % (38.7-80.0); PLATELET COUNT 507 x10e3/uL (140-360); RED BLOOD COUNT 2.67 x10e6/uL (3.6-5.1); RED CELL DISTRIBUTION WIDTH 19.5 % (11.7-14.4)
[2020-11-27 18:26] LABS: INR 0.84; PROTHROMBIN TIME 12.1 seconds (11.9-14.5)
[2020-11-27 18:27] LABS: PARTIAL THROMBOPLASTIN TIME 33.8 seconds (23.8-35.5)
[2020-11-27 18:30] LABS: ALANINE AMINOTRANSFERASE 16 IU/L (0-55); ALBUMIN 2.7 g/dL (3.5-5.0); ALBUMIN/GLOBULIN RATIO 0.7 (0.8-2.0); ALKALINE PHOSPHATASE 179 IU/L (40-150); BLOOD UREA NITROGEN 16 mg/dL (7-26); BUN/CREATININE RATIO 34 (6-25); CARBON DIOXIDE 27 mmol/L (22-29); CHLORIDE 103 mmol/L (98-107); CREATINE KINASE 974 IU/L (29-168); CREATININE, SERUM 0.47 mg/dL (0.57-1.11); EST GLOMERULAR FILTRATION RATE > 60 ML/MIN (60-); GLUCOSE 81 mg/dL (74-118); SODIUM 142 mmol/L (136-145)
[2020-11-27] MEDS ORDERED: KCL 20MEQ/.9 SOD CHL 1,000 ML IV ONE (20:45)
[2020-11-27 21:45] LABS: CLARITY,URINE SL CLOUDY (CLEAR); COLOR,URINE AMBER (YELLOW); KETONES,URINE TRACE (NEGATIVE); LEUKOCYTE ESTERASE ,URINE NEGATIVE (NEGATIVE); NITRITE,URINE NEGATIVE (NEGATIVE); PROTEIN,URINE DIPSTICK 1+ (NEGATIVE); URINE UROBILINOGEN 0.2 mg/dL (0.2 - 1)
[2020-11-27 21:55] LABS: BACTERIA,URINE FEW /HPF; MUCUS,URINE FEW (RARE)
[2020-11-27 21:56] LABS: YEAST,URINE MODERATE
== END 2020-11-27 23:45 | disposition other institution (70) ==
LOC: ER 16:53
DX: S72.002A Fracture of unspecified part of neck of left femur, initial encounter for closed fracture (principal); R50.9 Fever, unspecified; M62.82 Rhabdomyolysis; L89.103 Pressure ulcer of unspecified part of back, stage 3; D64.9 Anemia, unspecified; E87.6 Hypokalemia
CPT/HCPCS: 36415; 70450; 71045; 72125; 73030; 73523; 73552; 73562; 73590; 73610; 80053; 81001; 82550; 82553; 84484; 85025; 85610; 85730; 93005; 99285; J7030; U0002

== ENCOUNTER 2020-12-12 17:51 | Emergency (ER) | payer MEDICARE, OTHER ==
[~2020-12-12] VITALS: Ht 167.6 cm; Wt 57.2 kg
[2020-12-12] MEDS ORDERED: ACETAMINOPHEN 325 MG TAB PO ONE (18:30)
[2020-12-12] MEDS ORDERED: CEFEPIME 1 GM in SODIUM CHLORIDE 0.9% 50ML 50 ML IV SCH (18:30)
[2020-12-12] MEDS ORDERED: SODIUM CHLORIDE 0.9% 500ML 500 ML IV ONE (18:30)
[2020-12-12 18:42] LABS: BASOPHILS # (AUTO) 0.1 (0.0-0.1); BASOPHILS % 0.7 % (0.0-1.0); EOSINOPHILS # (AUTO) 0.3 (0.0-0.4); EOSINOPHILS % 2.1 % (0.0-6.0); HEMATOCRIT 35.7 % (34.2-44.1); HEMOGLOBIN 11.3 g/dL (12.0-16.0); LYMPHOCYTES % 16.2 % (18.0-39.1); MEAN CORPUSCULAR HEMOGLOBIN 27.8 pg (28-32); MEAN CORPUSCULAR HGB CONC 31.7 g/dL (31-35); MEAN CORPUSCULAR VOLUME 87.7 fL (81-99); MONOCYTES # (AUTO) 1.3 (0.2-0.8); MONOCYTES % 10.2 % (4.4-11.3); NEUTROPHILS # (AUTO) 8.9 (2.1-6.9); NEUTROPHILS % 70.2 % (38.7-80.0); PLATELET COUNT 307 x10e3/uL (140-360); RED BLOOD COUNT 4.07 x10e6/uL (3.6-5.1); RED CELL DISTRIBUTION WIDTH 17.9 % (11.7-14.4)
[2020-12-12 18:58] LABS: ALANINE AMINOTRANSFERASE 10 IU/L (0-55); ALBUMIN 2.5 g/dL (3.5-5.0); ALBUMIN/GLOBULIN RATIO 0.6 (0.8-2.0); ALKALINE PHOSPHATASE 162 IU/L (40-150); ANION GAP 14.3 mmol/L (8-16); BLOOD UREA NITROGEN 9 mg/dL (7-26); BUN/CREATININE RATIO 16 (6-25); CALCIUM 8.3 mg/dL (8.4-10.2); CARBON DIOXIDE 26 mmol/L (22-29); CHLORIDE 100 mmol/L (98-107); CREATINE KINASE 1129 IU/L (29-168); CREATININE, SERUM 0.55 mg/dL (0.57-1.11); EST GLOMERULAR FILTRATION RATE > 60 ML/MIN (60-); GLUCOSE 88 mg/dL (74-118); POTASSIUM 3.3 mmol/L (3.5-5.1); SODIUM 137 mmol/L (136-145)
[2020-12-12 19:23] LABS: CLARITY,URINE SL CLOUDY (CLEAR); COLOR,URINE STRAW (YELLOW); KETONES,URINE NEGATIVE (NEGATIVE); LEUKOCYTE ESTERASE ,URINE NEGATIVE (NEGATIVE); NITRITE,URINE NEGATIVE (NEGATIVE); PROTEIN,URINE DIPSTICK 1+ (NEGATIVE); URINE UROBILINOGEN 0.2 mg/dL (0.2 - 1)
[2020-12-12] MEDS ORDERED: SODIUM CHLORIDE 0.9% 1000ML 1,000 ML IV SCH (19:30)
[2020-12-12 19:33] LABS: B-TYPE NATRIURETIC PEPTIDE2 35.7 pg/mL (0-100)
[2020-12-12 19:38] LABS: AMORPHOUS SEDIMENT,URINE FEW (FEW); BACTERIA,URINE FEW /HPF; EPITHELIAL CELLS,URINE RARE /LPF; RBC,URINE 0-5 /HPF (0-5); WBC,URINE (MAN) 0-5 /HPF (0-5)
[2020-12-12] MEDS ORDERED: CEFEPIME HCL 1 GM VIAL IV SCH (22:00)
[2020-12-13 00:53] VITALS: BP 124/80
[2020-12-13] MEDS ORDERED: ACETAMINOPHEN 325 MG TAB PO ONE (01:00)
== END 2020-12-13 01:13 | disposition other institution (70) ==
LOC: ER 18:30
DX: M62.82 Rhabdomyolysis (principal); R50.9 Fever, unspecified; E86.0 Dehydration; M54.5 Low back pain; R00.0 Tachycardia, unspecified; I10 Essential (primary) hypertension; J44.1 Chronic obstructive pulmonary disease with (acute) exacerbation; R94.31 Abnormal electrocardiogram [ECG] [EKG]; Z96.642 Presence of left artificial hip joint; Z86.73 Personal history of transient ischemic attack (TIA), and cerebral infarction without residual deficits; F17.210 Nicotine dependence, cigarettes, uncomplicated
CPT/HCPCS: 36415; 71045; 80053; 81001; 82550; 82553; 83605; 83880; 84484; 85025; 87040; 87071; 87186; 87205; 93005; 99285; J0692; J7030; J7040; U0002

== ENCOUNTER 2021-06-12 19:47 | Observation (INO) | payer MEDICARE, OTHER ==
[~2021-06-12] VITALS: Ht 157.5 cm; Wt 52.6 kg
[2021-06-12 20:27] LABS: BASOPHILS % 0.5 % (0.0-1.0); EOSINOPHILS # (AUTO) 0.4 (0.0-0.4); EOSINOPHILS % 5.7 % (0.0-6.0); HEMATOCRIT 34.1 % (34.2-44.1); HEMOGLOBIN 10.8 g/dL (12.0-16.0); LYMPHOCYTES # (AUTO) 1.8 (1.0-3.2); LYMPHOCYTES % 26.8 % (18.0-39.1); MEAN CORPUSCULAR HEMOGLOBIN 29.1 pg (28-32); MEAN CORPUSCULAR HGB CONC 31.7 g/dL (31-35); MEAN CORPUSCULAR VOLUME 91.9 fL (81-99); MONOCYTES # (AUTO) 0.9 (0.2-0.8); MONOCYTES % 14.1 % (4.4-11.3); NEUTROPHILS # (AUTO) 3.4 (2.1-6.9); NEUTROPHILS % 52.6 % (38.7-80.0); PLATELET COUNT 251 x10e3/uL (140-360); RED BLOOD COUNT 3.71 x10e6/uL (3.6-5.1); RED CELL DISTRIBUTION WIDTH 12.8 % (11.7-14.4)
[2021-06-12] MEDS ORDERED: SODIUM CHLORIDE 0.9% 1000ML 1,000 ML IV ONE (20:30)
[2021-06-12 20:38] LABS: INR 0.92; PROTHROMBIN TIME 13.1 seconds (11.9-14.5)
[2021-06-12 20:39] LABS: PARTIAL THROMBOPLASTIN TIME 29.1 seconds (23.8-35.5)
[2021-06-12 20:46] LABS: ALANINE AMINOTRANSFERASE < 6 IU/L (0-55); ALBUMIN 3.1 g/dL (3.5-5.0); ALBUMIN/GLOBULIN RATIO 0.7 (0.8-2.0); ALKALINE PHOSPHATASE 102 IU/L (40-150); ANION GAP 13.5 mmol/L (8-16); BLOOD UREA NITROGEN 21 mg/dL (7-26); BUN/CREATININE RATIO 28 (6-25); CARBON DIOXIDE 27 mmol/L (22-29); CHLORIDE 103 mmol/L (98-107); CREATININE, SERUM 0.76 mg/dL (0.57-1.11); EST GLOMERULAR FILTRATION RATE 76 ML/MIN (60-); GLUCOSE 109 mg/dL (74-118); POTASSIUM 3.5 mmol/L (3.5-5.1); SODIUM 140 mmol/L (136-145)
[2021-06-12 21:37] LABS: EOSINOPHILS % (MANUAL) 4 % (0-7); LYMPHOCYTES % (MANUAL) 29 % (19-48); MONOCYTES % (MANUAL) 6 % (3.4-9.0); NEUTROPHILS % (MANUAL) 55 % (40-74)
[2021-06-12 21:38] LABS: PLATELET ESTIMATE ADEQUATE; PLATELET MORPHOLOGY COMMENT NORMAL; RBC MORPHOLOGY COMMENT NORMAL
[2021-06-12] MEDS ORDERED: ONDANSETRON HCL INJ 2MG/ML 2ML 2 MG/ML VIAL IV PRN (22:45)
[2021-06-12] MEDS: SODIUM CHLORIDE 0.9% 1000ML 1,000 ML IV SCH (23:10)
[2021-06-12] MEDS: PIPERACILLIN/TAZOBACTAM 3.375 GM in SODIUM CHLORIDE 0.9% 50ML 50 ML IV SCH (23:10)
[2021-06-13] VITALS: BP 102/68
[2021-06-13 01:00] VITALS: BP 118/80
[2021-06-13] MEDS ORDERED: ZOLPIDEM TARTRATE 10 MG TAB PO PRN (01:00)
[2021-06-13] MEDS: HYDROCODONE/APAP 10MG-325MG TAB PO PRN ×2 (01:20→10:54)
[2021-06-13] MEDS: PIPERACILLIN/TAZOBACTAM 3.375 GM in SODIUM CHLORIDE 0.9% 50ML 50 ML IV SCH ×2 (05:30→13:37)
[2021-06-13] MEDS ORDERED: METRONIDAZOLE 500MG/NS 100ML 100 ML IV SCH ×2 (06:00→09:00)
[2021-06-13] MEDS: SODIUM CHLORIDE 0.9% 1000ML 1,000 ML IV SCH (07:57)
[2021-06-13 08:00] VITALS: BP 102/70
[2021-06-13 08:17] VITALS: BP 102/70
[2021-06-13 08:36] LABS: BASOPHILS % 0.6 % (0.0-1.0); EOSINOPHILS # (AUTO) 0.5 (0.0-0.4); HEMATOCRIT 32.6 % (34.2-44.1); HEMOGLOBIN 10.1 g/dL (12.0-16.0); LYMPHOCYTES # (AUTO) 1.8 (1.0-3.2); LYMPHOCYTES % 29.7 % (18.0-39.1); MEAN CORPUSCULAR VOLUME 93.7 fL (81-99); MONOCYTES # (AUTO) 0.8 (0.2-0.8); MONOCYTES % 12.7 % (4.4-11.3); NEUTROPHILS % 48.5 % (38.7-80.0); PLATELET COUNT 244 x10e3/uL (140-360); RED BLOOD COUNT 3.48 x10e6/uL (3.6-5.1); RED CELL DISTRIBUTION WIDTH 13.1 % (11.7-14.4)
[2021-06-13 08:58] LABS: ALBUMIN 2.8 g/dL (3.5-5.0); ALBUMIN/GLOBULIN RATIO 0.7 (0.8-2.0); ALKALINE PHOSPHATASE 85 IU/L (40-150); ANION GAP 11.5 mmol/L (8-16); BLOOD UREA NITROGEN 16 mg/dL (7-26); BUN/CREATININE RATIO 23 (6-25); CALCIUM 8.7 mg/dL (8.4-10.2); CARBON DIOXIDE 27 mmol/L (22-29); CHLORIDE 108 mmol/L (98-107); EST GLOMERULAR FILTRATION RATE 84 ML/MIN (60-); GLUCOSE 83 mg/dL (74-118); POTASSIUM 3.5 mmol/L (3.5-5.1); SODIUM 143 mmol/L (136-145)
[2021-06-13 09:03] LABS: ALANINE AMINOTRANSFERASE < 6 IU/L (0-55)
[2021-06-13 11:38] VITALS: BP 114/73
[2021-06-13] MEDS ORDERED: METRONIDAZOLE 500 MG TAB PO SCH (14:00)
[2021-06-13] MEDS ORDERED: HYDROMORPHONE 1MG/1ML INJ IM ONE (16:27)
[2021-06-13 16:46] VITALS: BP 121/81
== END 2021-06-13 17:41 ==
LOC: ER 20:03 → INTOOBSV 22:37 → ERHOLD 22:37 → MED/SURG 06-13 00:15
DX: K94.09 Other complications of colostomy (principal); J44.9 Chronic obstructive pulmonary disease, unspecified; Z20.822 Contact with and (suspected) exposure to COVID-19; F03.90 Unspecified dementia, unspecified severity, without behavioral disturbance, psychotic disturbance, mood disturbance, and anxiety
CPT/HCPCS: 36415 ×2; 71045; 80053 ×2; 85025 ×2; 85610; 85730; 93005; 94799; 99284; G0378 ×2; J1170; J2543 ×2; J7030 ×2; U0002

== ENCOUNTER 2021-06-15 21:26 | Emergency (ER) | payer MEDICARE, OTHER ==
[~2021-06-15] VITALS: Ht 157.5 cm; Wt 52.6 kg
== END 2021-06-15 23:24 | disposition home or self-care (01) ==
LOC: ER 21:38
DX: K94.09 Other complications of colostomy (principal)
CPT/HCPCS: 99282

== ENCOUNTER 2021-08-01 08:46 | Inpatient (IN) | payer MEDICARE, OTHER ==
[~2021-08-01] VITALS: Ht 167.6 cm; Wt 67.1 kg
[2021-08-01] MEDS ORDERED: FENTANYL CITRATE/PF 100MCG/2 ML INJ IV STA (09:15)
[2021-08-01 09:32] LABS: BASOPHILS # (AUTO) 0.1 (0.0-0.1); BASOPHILS % 0.5 % (0.0-1.0); EOSINOPHILS # (AUTO) 0.5 (0.0-0.4); EOSINOPHILS % 4.8 % (0.0-6.0); HEMOGLOBIN 11.9 g/dL (12.0-16.0); MEAN CORPUSCULAR HEMOGLOBIN 28.9 pg (28-32); MEAN CORPUSCULAR HGB CONC 30.5 g/dL (31-35); MEAN CORPUSCULAR VOLUME 94.7 fL (81-99); MONOCYTES # (AUTO) 0.8 (0.2-0.8); MONOCYTES % 8.4 % (4.4-11.3); NEUTROPHILS # (AUTO) 6.1 (2.1-6.9); PLATELET COUNT 287 x10e3/uL (140-360); RED BLOOD COUNT 4.12 x10e6/uL (3.6-5.1); RED CELL DISTRIBUTION WIDTH 13.8 % (11.7-14.4)
[2021-08-01] MEDS ORDERED: Morphine 2mg Syringe 2 MG/ML SYR IV PRN (09:45)
[2021-08-01 09:52] LABS: PARTIAL THROMBOPLASTIN TIME 32.9 seconds (23.8-35.5)
[2021-08-01 09:56] LABS: INR 0.94; PROTHROMBIN TIME 13.2 seconds (11.9-14.5)
[2021-08-01 09:59] LABS: ALBUMIN 3.6 g/dL (3.5-5.0); ALBUMIN/GLOBULIN RATIO 0.7 (0.8-2.0); ALKALINE PHOSPHATASE 95 IU/L (40-150); ANION GAP 12.6 mmol/L (8-16); BLOOD UREA NITROGEN 15 mg/dL (7-26); BUN/CREATININE RATIO 21 (6-25); CALCIUM 9.9 mg/dL (8.4-10.2); CARBON DIOXIDE 28 mmol/L (22-29); CHLORIDE 103 mmol/L (98-107); CREATININE, SERUM 0.73 mg/dL (0.57-1.11); EST GLOMERULAR FILTRATION RATE 80 ML/MIN (60-); GLUCOSE 89 mg/dL (74-118); POTASSIUM 3.6 mmol/L (3.5-5.1); SODIUM 140 mmol/L (136-145)
[2021-08-01 10:04] LABS: ALANINE AMINOTRANSFERASE < 6 IU/L (0-55)
[2021-08-01] MEDS: SODIUM CHLORIDE 0.9% 1000ML 1,000 ML IV SCH ×2 (10:12→17:45)
[2021-08-01 11:59] VITALS: BP 102/74
[2021-08-01] MEDS ORDERED: PHENYLEPHRINE HCL 1% 10 MG/ML VIAL ONE (12:19)
[2021-08-01] MEDS ORDERED: POVIDONE IODINE 0.05% 0.05 % ML PO ONE (12:19)
[2021-08-01] MEDS ORDERED: SEVOFLURANE INHAL SOLN 250 ML PEN BTL ONE (12:19)
[2021-08-01] MEDS ORDERED: PROPOFOL IV EMULSION 10 MG/ML 20 ML VIAL ONE (12:19)
[2021-08-01] MEDS ORDERED: LIDOCAINE HCL 2% LOCAL INJ 5 ML SDV VIAL INJ ONE (12:19)
[2021-08-01] MEDS ORDERED: ONDANSETRON HCL INJ 2MG/ML 2ML 2 MG/ML VIAL ONE (12:19)
[2021-08-01] MEDS ORDERED: HYDROMORPHONE 1MG/1ML INJ IV PRN (12:45)
[2021-08-01] MEDS ORDERED: ONDANSETRON HCL INJ 2MG/ML 2ML 2 MG/ML VIAL IV PRN (12:45)
[2021-08-01] MEDS ORDERED: FENTANYL CITRATE/PF 100MCG/2 ML INJ ONE ×2 (12:58→19:17)
[2021-08-01] MEDS ORDERED: MIDAZOLAM HCL 2 MG/2 ML VIAL ONE (12:58)
[2021-08-01 16:33] VITALS: BP 108/78
[2021-08-01] MEDS ORDERED: ACETAMINOPHEN 1000 MG/100 ML 100 ML IV ONE (18:30)
[2021-08-01 19:00] VITALS: BP 121/75
[2021-08-01 20:23] VITALS: BP 125/77
[2021-08-01 21:00] VITALS: BP 125/77
[2021-08-01 21:10] VITALS: BP 125/77
[2021-08-02] VITALS (9 sets, daily range): BP systolic 109–130; BP diastolic 65–94
[2021-08-02] MEDS: SODIUM CHLORIDE 0.9% 1000ML 1,000 ML IV SCH ×3 (02:49→17:38)
[2021-08-02 06:09] LABS: BASOPHILS % 0.5 % (0.0-1.0); EOSINOPHILS # (AUTO) 0.5 (0.0-0.4); EOSINOPHILS % 7.3 % (0.0-6.0); HEMATOCRIT 34.3 % (34.2-44.1); HEMOGLOBIN 10.5 g/dL (12.0-16.0); LYMPHOCYTES # (AUTO) 1.6 (1.0-3.2); MEAN CORPUSCULAR HEMOGLOBIN 29.1 pg (28-32); MEAN CORPUSCULAR HGB CONC 30.6 g/dL (31-35); MONOCYTES # (AUTO) 0.7 (0.2-0.8); MONOCYTES % 11.3 % (4.4-11.3); NEUTROPHILS # (AUTO) 3.5 (2.1-6.9); NEUTROPHILS % 54.7 % (38.7-80.0); PLATELET COUNT 248 x10e3/uL (140-360); RED BLOOD COUNT 3.61 x10e6/uL (3.6-5.1); RED CELL DISTRIBUTION WIDTH 13.7 % (11.7-14.4)
[2021-08-02 06:26] LABS: ANION GAP 10.8 mmol/L (8-16); CALCIUM 8.8 mg/dL (8.4-10.2); CREATININE, SERUM 0.63 mg/dL (0.57-1.11); POTASSIUM 3.8 mmol/L (3.5-5.1)
== END 2021-08-02 19:06 | DRG 348 ==
LOC: ER 09:01 → ERHOLD 09:42 → MED/SURG 10:53
PROC: 0WQFXZ2 Repair Abdominal Wall, Stoma, External Approach (ICD-10-PCS; principal; 2021-08-01 17:54)
DX: K94.03 Colostomy malfunction (principal); E44.0 Moderate protein-calorie malnutrition; F03.90 Unspecified dementia, unspecified severity, without behavioral disturbance, psychotic disturbance, mood disturbance, and anxiety; J44.9 Chronic obstructive pulmonary disease, unspecified; F41.9 Anxiety disorder, unspecified; F32.A Depression, unspecified; Z68.23 Body mass index [BMI] 23.0-23.9, adult; Z66 Do not resuscitate; I11.0 Hypertensive heart disease with heart failure; I50.9 Heart failure, unspecified; Z88.5 Allergy status to narcotic agent
CPT/HCPCS: 36415; 74176; 80048; 80053; 85025; 85610; 85730; 88307; 93005; 96360; 99284; J0694; J1170; J2001; J2250; J2370; J2405; J3010; J7030; U0002